=== PATIENT | female | born 1945 | race Caucasian/White ===

== ENCOUNTER 2018-09-10 11:22 | Inpatient (IN) | payer MEDICARE, OTHER ==
[~2018-09-10] VITALS: Ht 157.5 cm; Wt 70.8 kg
[2018-09-10 11:20] VITALS: BP 153/78
--- NOTE | 2018-09-10 11:20 | NUR ---
ELIEZER ZUNIGA admitted to room 222-1, with an admitting diagnosis of AUTONOMIC DYSFUNCTION WITH TYPE 2 DM, on 09/10/18 from HOME via WHEELCHAIR, accompanied by STAFF. IS CURRENTLY A PATIENT IN ROOM 404. ELIEZER ZUNIGA introduced to surroundings, call light, bed controls, phone, TV, temperature control, lights, meal times, smoking policy, visitor policy, side rail policy, bathrooms and showers. Patient Rights given to patient in the handbook.ELIEZER ZUNIGA verbalizes understanding that [facility] is not responsible for the loss or damage to any personal effects or valuables that are kept in the patients posession during their hospitalization. The following Patient Care Plans were discussed with the PT: Discharge Planning AND IMPAIRED MOBILITY. ELIEZER ZUNIGA verbalizes understanding of Interdisciplinary Patient Education. Patient received Patient Rights Booklet, which includes Privacy Act Statement and Data Collection Information Summary. STATES "HER MIND HASN'T WORKED RIGHT SINCE [place] LAST YEAR". PATIENT DENIES PAIN.
--- OUTSIDE RECORDS SUMMARY | 2018-09-10 11:27 | XMS REPORT | CCD ---
Author Author VINH GAINES Organization Unknown Address [address] [place] [address] Care Team Providers Care Training And Development Rep Name Role Phone JULIET PHYS, LUIS ER Attphys JULIET PHYS, LUIS ER Prisurg Allergies Unknown or Not Available. Active Medications Medication Code Dose Units Frequency Route Modification Start Date/Time Advil 200MG Oral Tablet 258639 200 MILLIGRAMS NEEDED EVERY 6 HR ORAL 11/08/2016 10:21 Prescription Detail 200 MILLIGRAMS ORAL NEEDED EVERY 6 HR Aspirin 325MG Oral Tablet 524267 325 MILLIGRAMS DAILY WITH A MEAL ORAL 11/08/2016 10:21 Prescription Detail 325 MILLIGRAMS ORAL DAILY WITH A MEAL Atenolol 25MG Oral Tablet 032202 25 MILLIGRAMS DAILY ORAL 11/08/2016 10:21 Prescription Detail 25 MILLIGRAMS ORAL DAILY Lasix 40MG Oral Tablet 108452 40 MILLIGRAMS DAILY ORAL 11/08/2016 10:21 Prescription Detail 40 MILLIGRAMS ORAL DAILY Leader Cranberry Oral Tablet 9244674 1 EACH DAILY ORAL 11/08/2016 10:21 Prescription Detail 1 EACH ORAL DAILY Levothyroxine Sodium 112MCG Oral Tablet 749185 112 MCG DAILY ORAL 11/08/2016 10:21 Prescription Detail 112 MCG ORAL DAILY NovoLOG 100U/1ML Subcutaneous Solution 610134 5 UNIT BEFORE EACH MEAL SUBCUTANEOUS 11/08/2016 10:21 Prescription Detail 5 UNIT SUBCUTANEOUS BEFORE EACH MEAL oxyCODONE HCl-acetaminophen 10MG-325MG Oral Tablet 3558682 1 EACH NEEDED EVERY 6 HR ORAL 11/08/2016 10:21 Prescription Detail 1 EACH ORAL NEEDED EVERY 6 HR Plavix 75MG Oral Tablet 188597 75 MILLIGRAMS DAILY ORAL 11/08/2016 10:21 Prescription Detail 75 MILLIGRAMS ORAL DAILY Sertraline 50MG Oral Tablet 765948 50 MILLIGRAMS DAILY ORAL 11/08/2016 10:21 Prescription Detail 50 MILLIGRAMS ORAL DAILY Problems Problem Code Start Date Resolved Date Status Sepsis 06720250 11/05/2016 Active Cellulitis 660078232 11/05/2016 Active Procedures Procedure Code Procedure Type Date CX CHEST 1 VIEW 693514800 [facility] 07/15/2016 BEDSIDE GLUCOSE 97522330 [facility] 07/15/2016 UA ROUTINE C&S IF IND [id number] [facility] 07/15/2016 CULTURE BLOOD 27796280 [facility] 07/15/2016 LACTIC ACID 6680474 [facility] 07/15/2016 COMPREHENSIVE METABOLIC PANEL [id number] [facility] 07/15/2016 CBC W/ AUTO DIFF (RFLX MAN DIFF IF IND) [id number] [facility] 07/15/2016 ^UA WITH MICRO [id number] [facility] 07/15/2016 ^CBC W/AUTO DIFF [id number] [facility] 07/15/2016 Results BEDSIDE GLUCOSE - Collect Date/Time: 07/15/2016 15:54 Test Name Code Test Result Test Units Test Ref Range GLUCOSE POCT 208 MG/DL L=70 H=100 COMPREHENSIVE METABOLIC PANEL - Collect Date/Time: 07/15/2016 16:20 Test Name Code Test Result Test Units Test Ref Range GLUCOSE 2345-7 200 MG/DL L=70 H=100 SODIUM 2951-2 139 MEQ/L L=135 H=148 POTASSIUM 2823-3 4.0 MEQ/L L=3.5 H=5.3 CHLORIDE 2075-0 104 MEQ/L L=96 H=110 CO2 2028-9 23 MEQ/L L=22 H=29 BUN 3094-0 39 MG/DL L=8 H=22 CREATININE 2160-0 1.5 MG/DL L=0.6 H=1.6 SGOT/AST 1920-8 19 IU/L L=10 H=40 SGPT/ALT 1742-6 10 IU/L L=8 H=54 ALK PHOS 6768-6 129 IU/L L=35 H=115 TOTAL PROTEIN 2885-2 6.5 G/DL L=5.5 H=8.5 ALBUMIN 1751-7 3.1 G/DL L=3.1 H=5.4 TOTAL BILI 1975-2 0.1 MG/DL L=0.0 H=1.5 CALCIUM 66788-2 9.7 MG/DL L=8.2 H=10.6 AGE 70 yrs GFR NonAA 34 GFR AA 41 eGFR 34 mL/min/1.7 eGFR AA* 41 mL/min/1.7 CBC W/ AUTO DIFF (RFLX MAN DIFF IF IND) - Collect Date/Time: 07/15/2016 15:55 Test Name Code Test Result Test Units Test Ref Range WBC 87362-3 9.6 TH/CMM L=4.5 H=10.8 RBC 789-8 3.72 ML/CMM L=4.20 H=5.40 HGB 718-7 9.2 G/DL L=12.0 H=16.0 HCT 4544-3 31.1 % L=37.0 H=47.0 MCV 84 FL L=81 H=99 MCH 24.7 PG L=27.0 H=33.0 MCHC 29.6 G/DL L=31.0 H=36.0 RDW SD 45 FL L=36 H=50 RDW CV 14.8 % L=0.0 H=14.8 MPV 10.4 FL L=9.3 H=12.5 PLT 777-3 384 TH/CMM L=130 H=440 NRBC# 0.00 TH/CMM L=0.00 H=0.00 NRBC% 0.0 /100WBC L=0.0 H=2.0 %NEUT 61.4 % %LYMP 28.0 % %MONO 7.8 % %EOS 2.0 % %BASO 0.4 % #NEUT 5.86 TH/CMM L=2.10 H=8.20 #LYMP 2.68 TH/CMM L=0.90 H=5.20 #MONO 0.75 TH/CMM L=0.16 H=1.00 #EOS 0.19 TH/CMM L=0.00 H=0.80 #BASO 0.04 TH/CMM L=0.00 H=0.20 MANUAL DIFF NOT IND N/A UA ROUTINE C&S IF IND - Collect Date/Time: 07/15/2016 18:30 Test Name Code Test Result Test Units Test Ref Range COLOR YELLOW N/A NL: YELLOW APPEARANCE HAZY N/A NL: CLEAR SPEC GRAV 1.020 N/A NL: 1.002 - 1.022 pH 5.5 N/A NL: 5 - 9 PROTEIN NEGATIVE N/A NL: NEGATIVE mg/dl GLUCOSE NEGATIVE N/A NL: NEGATIVE mg/dl KETONE NEGATIVE N/A NL: NEGATIVE mg/dl BILIRUBIN NEGATIVE N/A NL: NEGATIVE BLOOD NEGATIVE N/A NL: NEGATIVE NITRITE NEGATIVE N/A NL: NEGATIVE LEUK SCREEN TRACE N/A NL: NEGATIVE MICRO INDICATED? SEE BELOW N/A WBC/HPF RARE N/A NL: NEGATIVE RBC/HPF NEGATIVE N/A NL: NEGATIVE CASTS/LPF FEW HYALINE N/A NL: NEGATIVE CRYSTALS NEGATIVE N/A NL: NEGATIVE MUCOUS THRDS FEW N/A NL: NEGATIVE BACTERIA NEGATIVE N/A NL: NEGATIVE EPITH CELLS FEW RENAL N/A NL: NEGATIVE TRICHOMONAS NEGATIVE N/A NL: NEGATIVE YEAST NEGATIVE N/A NL: NEGATIVE CULT SET UP? NO N/A LACTIC ACID - Collect Date/Time: 07/15/2016 16:20 Test Name Code Test Result Test Units Test Ref Range LACTIC ACID 2524-7 2.1 mmol/L L=0.5 H=1.6 Function Status Unknown or Not Available. History of Immunizations Immunization Code Date influenza, split (incl. purified surface antigen) 15 02/10/2001 influenza, split (incl. purified surface antigen) 15 02/02/2003 influenza, split (incl. purified surface antigen) 15 02/03/2005 influenza, split (incl. purified surface antigen) 15 02/13/2006 influenza, split (incl. purified surface antigen) 15 12/28/2006 influenza, split (incl. purified surface antigen) 15 01/05/2008 Influenza, high dose seasonal 135 01/01/2016 Influenza, high dose seasonal 135 01/20/2017 Plan of Treatment Unknown or Not Available. Social History Smoking Status Code Start Date End Date Never smoker [id number] Vital Signs Unknown or Not Available. Function Status Unknown or Not Available. Goals Unknown or Not Available. ASSESSMENTS Unknown or Not Available. Health Concerns Section Unknown or Not Available.
--- OUTSIDE RECORDS SUMMARY | 2018-09-10 11:27 | XMS REPORT | CCD ---
Author DANIEL Crane Unknown Address [address] [facility] [place] [address] Care Team Providers Care Shopping Inspector Name Role Phone LUIS SUE DO Attphys Allergies Allergy Code Allergy Type Reaction Status SULFA (sulfonamide) 0 Drug allergy Active MORPHINE 7052 Drug allergy Active DILAUDID 021798 Drug allergy Active AMOXICILLIN 723 Drug allergy Active Active Medications Medication Code Dose Units Frequency Route Modification Start Date/Time Advil 200MG Oral Tablet 777343 200 MILLIGRAMS NEEDED EVERY 6 HR ORAL 11/08/2016 10:21 Prescription Detail 200 MILLIGRAMS ORAL NEEDED EVERY 6 HR Aspirin 325MG Oral Tablet 705766 325 MILLIGRAMS DAILY WITH A MEAL ORAL 11/08/2016 10:21 Prescription Detail 325 MILLIGRAMS ORAL DAILY WITH A MEAL Atenolol 25MG Oral Tablet 376054 25 MILLIGRAMS DAILY ORAL 11/08/2016 10:21 Prescription Detail 25 MILLIGRAMS ORAL DAILY Lasix 40MG Oral Tablet 462376 40 MILLIGRAMS DAILY ORAL 11/08/2016 10:21 Prescription Detail 40 MILLIGRAMS ORAL DAILY Leader Cranberry Oral Tablet 7862379 1 EACH DAILY ORAL 11/08/2016 10:21 Prescription Detail 1 EACH ORAL DAILY Levothyroxine Sodium 112MCG Oral Tablet 328538 112 MCG DAILY ORAL 11/08/2016 10:21 Prescription Detail 112 MCG ORAL DAILY NovoLOG 100U/1ML Subcutaneous Solution 872217 5 UNIT BEFORE EACH MEAL SUBCUTANEOUS 11/08/2016 10:21 Prescription Detail 5 UNIT SUBCUTANEOUS BEFORE EACH MEAL oxyCODONE HCl-acetaminophen 10MG-325MG Oral Tablet 4147500 1 EACH NEEDED EVERY 6 HR ORAL 11/08/2016 10:21 Prescription Detail 1 EACH ORAL NEEDED EVERY 6 HR Plavix 75MG Oral Tablet 576101 75 MILLIGRAMS DAILY ORAL 11/08/2016 10:21 Prescription Detail 75 MILLIGRAMS ORAL DAILY Sertraline 50MG Oral Tablet 847083 50 MILLIGRAMS DAILY ORAL 11/08/2016 10:21 Prescription Detail 50 MILLIGRAMS ORAL DAILY Problems Problem Code Start Date Resolved Date Status Sepsis 14811788 11/05/2016 Active Cellulitis 646902176 11/05/2016 Active Procedures Unknown or Not Available. Results Unknown or Not Available. Function Status Unknown or Not Available. History [...] Code Start Date End Date Never smoker [id number] Vital Signs Unknown or Not Available. Function Status Unknown or Not Available. Goals Unknown or Not Available. ASSESSMENTS Unknown or Not Available. Health Concerns Section Unknown or Not Available.
--- OUTSIDE RECORDS SUMMARY | 2018-09-10 11:27 | XMS REPORT | CCD ---
Author Author VINH GAINES Unknown Address [address] [place] [address] Care Team Providers Care Food Assembler Kitchen Name Role Phone ARSENIO McelroyJAISON Attphys A., DONOVAN Jc NASST G., SUNPIPPA NASST R., MILAGRO Jc NASST W., NOEMY NASST P., YUMIKO NASST H., EZIO NASST M., ERAN NASST D., NICOLASAA NASST H., DANIELLE NASST U., FREDY NASST K., JERRI NASST S., JUNG Hathaway NASST W., DIANNE Luz NASST D., KENNEDY Mcelroy NASST S., ALYCIA NASST K., DEWEY NASST S., TYREE Renae NASST C., YUVAL NASST Allergies Allergy Code Allergy Type Reaction Status SULFA (sulfonamide) 0 Drug allergy Active MORPHINE 7052 Drug allergy Active DILAUDID 843214 Drug allergy Active AMOXICILLIN 723 Drug allergy Active Active Medications Medication Code Dose Units Frequency Route Modification Start Date/Time Advil 200MG Oral Tablet 811605 200 MILLIGRAMS NEEDED EVERY 6 HR ORAL 11/08/2016 10:21 Prescription Detail 200 MILLIGRAMS ORAL NEEDED EVERY 6 HR Aspirin 325MG Oral Tablet 597027 325 MILLIGRAMS DAILY WITH A MEAL ORAL 11/08/2016 10:21 Prescription Detail 325 MILLIGRAMS ORAL DAILY WITH A MEAL Atenolol 25MG Oral Tablet 531827 25 MILLIGRAMS DAILY ORAL 11/08/2016 10:21 Prescription Detail 25 MILLIGRAMS ORAL DAILY Lasix 40MG Oral Tablet 008092 40 MILLIGRAMS DAILY ORAL 11/08/2016 10:21 Prescription Detail 40 MILLIGRAMS ORAL DAILY Leader Cranberry Oral Tablet 9294334 1 EACH DAILY ORAL 11/08/2016 10:21 Prescription Detail 1 EACH ORAL DAILY Levothyroxine Sodium 112MCG Oral Tablet 138317 112 MCG DAILY ORAL 11/08/2016 10:21 Prescription Detail 112 MCG ORAL DAILY NovoLOG 100U/1ML Subcutaneous Solution 380576 5 UNIT BEFORE EACH MEAL SUBCUTANEOUS 11/08/2016 10:21 Prescription Detail 5 UNIT SUBCUTANEOUS BEFORE EACH MEAL oxyCODONE HCl-acetaminophen 10MG-325MG Oral Tablet 9916288 1 EACH NEEDED EVERY 6 HR ORAL 11/08/2016 10:21 Prescription Detail 1 EACH ORAL NEEDED EVERY 6 HR Plavix 75MG Oral Tablet 436701 75 MILLIGRAMS DAILY ORAL 11/08/2016 10:21 Prescription Detail 75 MILLIGRAMS ORAL DAILY Sertraline 50MG Oral Tablet 573146 50 MILLIGRAMS DAILY ORAL 11/08/2016 10:21 Prescription Detail 50 MILLIGRAMS ORAL DAILY Problems Problem Code Start Date Resolved Date Status Sepsis 89189608 11/05/2016 Active Cellulitis 133402394 11/05/2016 Active Procedures Procedure Code Procedure Type Date CX CHEST [address] 11/07/2016 CX CHEST [address] 11/07/2016 CX CHEST [address] 11/05/2016 BEDSIDE GLUCOSE 07497064 SNOMED CT 11/08/2016 BEDSIDE GLUCOSE 09418645 SNOMED CT 11/08/2016 BEDSIDE GLUCOSE 23386287 SNOMED CT 11/08/2016 BEDSIDE GLUCOSE 22419847 SNOMED CT 11/08/[address] 11/08/2016 BEDSIDE GLUCOSE 92431067 SNOMED CT 11/08/2016 BEDSIDE GLUCOSE 91320984 SNOMED CT 11/08/2016 BEDSIDE GLUCOSE 31854466 SNOMED CT 11/08/2016 BEDSIDE GLUCOSE 31412302 SNOMED CT 11/07/2016 BEDSIDE GLUCOSE 53461181 SNOMED CT 11/07/2016 BEDSIDE GLUCOSE 46311512 SNOMED CT 11/07/2016 BEDSIDE GLUCOSE 40773675 SNOMED CT 11/07/2016 BASIC METABOLIC PANEL 209959927 SNOMED CT 11/08/2016 CBC W/ AUTO DIFF (RFLX MAN DIFF IF IND) 1019777 SNOMED CT 11/08/2016 BEDSIDE GLUCOSE 19594079 SNOMED CT 11/07/2016 BEDSIDE GLUCOSE 25690059 SNOMED CT 11/07/2016 BEDSIDE GLUCOSE 48314645 SNOMED CT 11/07/2016 BEDSIDE GLUCOSE 85846248 SNOMED CT 11/07/2016 BEDSIDE GLUCOSE 52797310 SNOMED CT 11/07/2016 BEDSIDE GLUCOSE 74919936 SNOMED CT 11/07/2016 BEDSIDE GLUCOSE 00311766 SNOMED CT 11/07/2016 BEDSIDE GLUCOSE 60295996 SNOMED CT 11/06/2016 BEDSIDE GLUCOSE 11823168 SNOMED CT 11/06/2016 BEDSIDE GLUCOSE 63057853 SNOMED CT 11/06/2016 BEDSIDE GLUCOSE 15464390 SNOMED CT 11/06/2016 BEDSIDE GLUCOSE 77072765 SNOMED CT 11/06/2016 BEDSIDE GLUCOSE 88877879 SNOMED CT 11/05/2016 BEDSIDE GLUCOSE 77368585 SNOMED CT 11/06/2016 BEDSIDE GLUCOSE 57780605 SNOMED CT 11/06/2016 BEDSIDE GLUCOSE 26658526 SNOMED CT 11/05/2016 BEDSIDE GLUCOSE 76316765 SNOMED CT 11/05/2016 VANCOMYCIN TROUGH 456205248 SNOMED CT 11/07/2016 CULTURE WOUND 217349445 SNOMED CT 11/05/2016 OCCULT BLOOD iFOBT 870259971 SNOMED CT 11/05/2016 IRON [address]30[address] 11/05/2016 C REACTIVE PROTEIN 70122067 SNOMED CT 11/06/[address]OGLOBIN A1C 56[address]252 SNOM[address] 11/06/[address] 11/06/[address] 11/06/2016 COMPREHENSIVE METABOLIC PANEL 318809915 SNOMED CT 11/06/2016 CBC W/ AUTO DIFF (RFLX MAN DIFF IF IND) 6889525 SNOMED CT 11/06/2016 [address] 067[address] 11/05/2016 LACTIC ACID 8866219 [address] 11/05/2016 CULTURE BLOOD 64928082 SNOMED CT 11/05/2016 CULTURE BLOOD 99029547 SNOMED CT 11/05/2016 C REACTIVE PROTEIN 24822727 SNOMED CT 11/05/2016 COMPREHENSIVE METABOLIC PANEL 761722412 SNOMED CT 11/05/2016 CBC W/ AUTO DIFF (RFLX MAN DIFF IF IND) 1418633 SNOMED CT 11/05/2016 ^CULTURE AEROBIC ID 406600563 SNOMED CT 11/05/2016 ^SENSITIVITY 162610969 SNOMED CT 11/05/2016 ^CBC W/AUTO DIFF 6558344 SNOMED CT 11/08/2016 ^CBC W/AUTO DIFF 7185696 SNOMED CT 11/06/2016 ^CBC W/AUTO DIFF 0600287 SNOMED CT 11/05/2016 BAN AERO ECLIPSE TREATMENT 70737043 SNOMED CT 11/06/2016 BAN AERO ECLIPSE TREATMENT 65279071 SNOMED CT 11/05/2016 BAN AERO ECLIPSE TREATMENT 70597376 SNOMED CT 11/05/2016 Results BASIC METABOLIC PANEL - Collect Date/Time: 11/08/2016 06:30 Test Name Code Test Result Test Units Test Ref Range GLUCOSE 2345-7 639 MG/DL L=70 H=100 SODIUM 2951-2 134 MEQ/L L=135 H=148 POTASSIUM 2823-3 4.4 MEQ/L L=3.5 H=5.3 CHLORIDE 2075-0 98 MEQ/L L=96 H=110 CO2 2028-9 25 MEQ/L L=22 H=29 BUN 3094-0 22 MG/DL L=8 H=22 CREATININE 2160-0 0.9 MG/DL L=0.6 H=1.6 CALCIUM 95801-9 8.7 MG/DL L=8.2 H=10.6 AGE [address]25-6 71 yrs GFR NonAA 77201-8 62 [place]FR [place] 48044-6 75 eGFR 30664-7 >60 N/A eGFR AA* 54959-8 >60 N/A BEDSIDE GLUCOSE - Collect Date/Time: 11/08/2016 14:50 Test Name Code Test Result Test Units Test Ref Range GLUCOSE POCT 114 MG/DL L=70 H=100 BEDSIDE GLUCOSE - Collect Date/Time: 11/08/2016 13:14 Test Name Code Test Result Test Units Test Ref Range GLUCOSE POCT 121 MG/DL L=70 H=100 BEDSIDE GLUCOSE - Collect Date/Time: 11/08/2016 11:29 Test Name Code Test Result Test Units Test Ref Range GLUCOSE POCT 204 MG/DL L=70 H=100 BEDSIDE GLUCOSE - Collect Date/Time: 11/08/2016 08:27 Test Name Code Test Result Test Units Test Ref Range GLUCOSE POCT 478 MG/DL L=70 H=100 BEDSIDE GLUCOSE - Collect Date/Time: 11/08/2016 06:46 Test Name Code Test Result Test Units Test Ref Range GLUCOSE POCT 489 MG/DL L=70 H=100 BEDSIDE GLUCOSE - Collect Date/Time: 11/08/2016 05:13 Test Name Code Test Result Test Units Test Ref Range GLUCOSE POCT 456 MG/DL L=70 H=100 BEDSIDE GLUCOSE - Collect Date/Time: 11/08/2016 00:58 Test Name Code Test Result Test Units Test Ref Range GLUCOSE POCT 402 MG/DL L=70 H=100 BEDSIDE GLUCOSE - Collect Date/Time: 11/07/2016 21:02 Test Name Code Test Result Test Units Test Ref Range GLUCOSE POCT 90 MG/DL L=70 H=100 BEDSIDE GLUCOSE - Collect Date/Time: 11/07/2016 20:41 Test Name Code Test Result Test Units Test Ref Range GLUCOSE POCT 55 MG/DL L=70 H=100 BEDSIDE GLUCOSE - Collect Date/Time: 11/07/2016 20:19 Test Name Code Test Result Test Units Test Ref Range GLUCOSE POCT 62 MG/DL L=70 H=100 BEDSIDE GLUCOSE - Collect Date/Time: 11/07/2016 16:51 Test Name Code Test Result Test Units Test Ref Range GLUCOSE POCT 126 MG/DL L=70 H=100 BEDSIDE GLUCOSE - Collect Date/Time: 11/07/2016 14:28 Test Name Code Test Result Test Units Test Ref Range GLUCOSE POCT 453 MG/DL L=70 H=100 BEDSIDE GLUCOSE - Collect Date/Time: 11/07/2016 11:37 Test Name Code Test Result Test Units Test Ref Range GLUCOSE POCT 482 MG/DL L=70 H=100 BEDSIDE GLUCOSE - Collect Date/Time: 11/07/2016 05:41 Test Name Code Test Result Test Units Test Ref Range GLUCOSE POCT 270 MG/DL L=70 H=100 BEDSIDE GLUCOSE - Collect Date/Time: 11/07/2016 03:24 Test Name Code Test Result Test Units Test Ref Range GLUCOSE POCT 94 MG/DL L=70 H=100 BEDSIDE GLUCOSE - Collect Date/Time: 11/07/2016 03:00 Test Name Code Test Result Test Units Test Ref Range GLUCOSE POCT 60 MG/DL L=70 H=100 BEDSIDE GLUCOSE - Collect Date/Time: 11/07/2016 02:30 Test Name Code Test Result Test Units Test Ref Range GLUCOSE POCT 28 MG/DL L=70 H=100 BEDSIDE GLUCOSE - Collect Date/Time: 11/07/2016 02:07 Test Name Code Test Result Test Units Test Ref Range GLUCOSE POCT 20 MG/DL L=70 H=100 BEDSIDE GLUCOSE - Collect Date/Time: 11/06/2016 20:25 Test Name Code Test Result Test Units Test Ref Range GLUCOSE POCT 202 MG/DL L=70 H=100 BEDSIDE GLUCOSE - Collect Date/Time: 11/06/2016 17:14 Test Name Code Test Result Test Units Test Ref Range GLUCOSE POCT 111 MG/DL L=70 H=100 BEDSIDE GLUCOSE - Collect Date/Time: 11/06/2016 16:20 Test Name Code Test Result Test Units Test Ref Range GLUCOSE POCT 75 MG/DL L=70 H=100 BEDSIDE GLUCOSE - Collect Date/Time: 11/06/2016 12:03 Test Name Code Test Result Test Units Test Ref Range GLUCOSE POCT 210 MG/DL L=70 H=100 BEDSIDE GLUCOSE - Collect Date/Time: 11/06/2016 08:16 Test Name Code Test Result Test Units Test Ref Range GLUCOSE POCT 322 MG/DL L=70 H=100 BEDSIDE GLUCOSE - Collect Date/Time: 11/06/2016 05:54 Test Name Code Test Result Test Units Test Ref Range GLUCOSE POCT 269 MG/DL L=70 H=100 BEDSIDE GLUCOSE - Collect Date/Time: 11/06/2016 02:07 Test Name Code Test Result Test Units Test Ref Range GLUCOSE POCT 243 MG/DL L=70 H=100 BEDSIDE GLUCOSE - Collect Date/Time: 11/05/2016 20:40 Test Name Code Test Result Test Units Test Ref Range GLUCOSE POCT 292 MG/DL L=70 H=100 BEDSIDE GLUCOSE - Collect Date/Time: 11/05/2016 16:43 Test Name Code Test Result Test Units Test Ref Range GLUCOSE POCT 169 MG/DL L=70 H=100 BEDSIDE GLUCOSE - Collect Date/Time: 11/05/2016 11:58 Test Name Code Test Result Test Units Test Ref Range GLUCOSE POCT 105 MG/DL L=70 H=100 COMPREHENSIVE METABOLIC PANEL - Collect Date/Time: 11/06/2016 06:35 Test Name Code Test Result Test Units Test Ref Range GLUCOSE 2345-7 318 MG/DL L=70 H=100 SODIUM 2951-2 136 MEQ/L L=135 H=148 POTASSIUM 2823-3 4.1 MEQ/L L=3.5 H=5.3 CHLORIDE 2075-0 108 MEQ/L L=96 H=110 CO2 2028-9 23 MEQ/L L=22 H=29 BUN 3094-0 21 MG/DL L=8 H=22 CREATININE 2160-0 0.7 MG/DL L=0.6 H=1.6 SGOT/AST 1920-8 13 IU/L L=10 H=40 SGPT/ALT 1742-6 9 IU/L L=8 H=54 ALK PHOS 6768-6 147 IU/L L=35 H=115 TOTAL PROTEIN 2885-2 5.7 G/DL L=5.5 H=8.5 ALBUMIN 1751-7 2.7 G/DL L=3.1 H=5.4 TOTAL BILI 1975-2 0.3 MG/DL L=0.0 H=1.5 CALCIUM 16140-9 8.3 MG/DL L=8.2 H=10.6 AGE 158[address]-8 71 yrs GFR NonAA 72595-8 82 GFR AA 87789-5 99 eGFR 40838-4 >60 N/A eGFR AA* 65816-3 >60 N/A COMPREHENSIVE METABOLIC PANEL - Collect Date/Time: 11/05/2016 12:05 Test Name Code Test Result Test Units Test Ref Range GLUCOSE 2345-7 90 MG/DL L=70 H=100 SODIUM 2951-2 140 MEQ/L L=135 H=148 POTASSIUM 2823-3 4.3 MEQ/L L=3.5 H=5.3 CHLORIDE 2075-0 105 MEQ/L L=96 H=110 CO2 2028-9 24 MEQ/L L=22 H=29 BUN 3094-0 33 MG/DL L=8 H=22 CREATININE 2160-0 0.8 MG/DL L=0.6 H=1.6 SGOT/AST 1920-8 24 IU/L L=10 H=40 SGPT/ALT 1742-6 15 IU/L L=8 H=54 ALK PHOS 6768-6 166 IU/L L=35 H=115 TOTAL PROTEIN 2885-2 7.7 G/DL L=5.5 H=8.5 ALBUMIN 1751-7 3.3 G/DL L=3.1 H=5.4 TOTAL BILI 1975-2 0.3 MG/DL L=0.0 H=1.5 CALCIUM 11212-6 9.8 MG/DL L=8.2 H=10.6 AGE 71 yrs GFR NonAA 71 GFR AA 86 eGFR >60 N/A eGFR AA* >60 N/A GLUCOSE - Collect Date/Time: 11/08/2016 08:30 Test Name Code Test Result Test Units Test Ref Range GLUCOSE 2345-7 519 MG/DL L=70 H=100 PHOSPHORUS - Collect Date/Time: 11/06/2016 06:35 Test Name Code Test Result Test Units Test Ref Range PHOSPHORUS 2777-1 3.0 MG/DL L=2.5 H=4.5 VANCOMYCIN TROUGH - Collect Date/Time: 11/07/2016 00:40 Test Name Code Test Result Test Units Test Ref Range VANC TROUGH 4092-3 16.0 UG/ML L=10.0 H=20.0 CBC W/ AUTO DIFF (RFLX MAN DIFF IF IND) - Collect Date/Time: 11/08/2016 06:30 Test Name Code Test Result Test Units Test Ref Range WBC 02526-0 8.0 TH/CMM L=4.5 H=10.8 RBC 789-8 4.00 ML/CMM L=4.20 H=5.40 HGB 718-7 9.4 G/DL L=12.0 H=16.0 HCT 4544-3 31.5 % L=37.0 H=47.0 MCV 89971-4 79 FL L=81 H=99 MCH 47649-7 23.5 PG L=27.0 H=33.0 MCHC 02126-9 29.8 G/DL L=31.0 H=36[place]0 [place] [address]-4 51 FL L=36 H=50 [place] [address]-6 17.9 % L=0.0 H=14.8 MPV 46785-5 10.7 FL L=9.3 H=12.5 PLT 777-3 301 TH/CMM L=130 H=440 NRBC# 91081-9 0.00 TH/CMM L=0.00 H=0.00 NRBC% 65122-8 0.0 /100WBC L=0.0 H=2.0 %NEUT 39477-8 65.7 % %LYMP 77678-6 22.0 % %MONO 69459-1 7.3 % %EOS 44146-5 4.0 % %BASO 39052-9 0.6 % #NEUT 39257-6 5.27 TH/CMM L=2.10 H=8.20 #LYMP 38613-4 1.77 TH/CMM L=0.90 H=5.20 #MONO 48162-8 0.59 TH/CMM L=0.16 H=1.00 #EOS 00373-2 0.32 TH/CMM L=0.00 H=0.80 #BASO 39036-2 0.05 TH/CMM L=0.00 H=0.20 MANUAL DIFF 59084-7 NOT IND N/A CBC W/ AUTO DIFF (RFLX MAN DIFF IF IND) - Collect Date/Time: 11/06/2016 06:35 Test Name Code Test Result Test Units Test Ref Range WBC 70020-1 8.0 TH/CMM L=4.5 H=10.8 RBC 789-8 3.79 ML/CMM L=4.20 H=5.40 HGB 718-7 9.0 G/DL L=12.0 H=16.0 HCT 4544-3 29.7 % L=37.0 H=47.0 MCV 92368-7 78 FL L=81 H=99 MCH 69328-0 23.7 PG L=27.0 H=33.0 MCHC 12702-4 30.3 G/DL L=31.0 H=36[place]0 [place] [address]-2 51 FL L=36 H=50 [place] [address]-7 18.1 % L=0.0 H=14.8 MPV 07293-6 10.9 FL L=9.3 H=12.5 PLT 777-3 351 TH/CMM L=130 H=440 NRBC# 37613-9 0.00 TH/CMM L=0.00 H=0.00 NRBC% 45237-5 0.0 /100WBC L=0.0 H=2.0 %NEUT 80258-3 53.4 % %LYMP 51282-5 35.0 % %MONO 10661-7 7.1 % %EOS 20394-7 3.3 % %BASO 33683-8 0.9 % #NEUT 60736-2 4.27 TH/CMM L=2.10 H=8.20 #LYMP 08843-6 2.80 TH/CMM L=0.90 H=5.20 #MONO 12479-4 0.57 TH/CMM L=0.16 H=1.00 #EOS 84861-4 0.26 TH/CMM L=0.00 H=0.80 #BASO 76678-1 0.07 TH/CMM L=0.00 H=0.20 MANUAL DIFF 89773-0 NOT IND N/A CBC W/ AUTO DIFF (RFLX MAN DIFF IF IND) - Collect Date/Time: 11/05/2016 12:05 Test Name Code Test Result Test Units Test Ref Range WBC 57038-6 8.3 TH/CMM L=4.5 H=10.8 RBC 789-8 4.64 ML/CMM L=4.20 H=5.40 HGB 718-7 10.8 G/DL L=12.0 H=16.0 HCT 4544-3 35.7 % L=37.0 H=47.0 MCV 77 FL L=81 H=99 MCH 23.3 PG L=27.0 H=33.0 MCHC 30.3 G/DL L=31.0 H=36.0 RDW SD 50 FL L=36 H=50 RDW CV 18.1 % L=0.0 H=14.8 MPV 10.6 FL L=9.3 H=12.5 PLT 777-3 460 TH/CMM L=130 H=440 NRBC# 0.00 TH/CMM L=0.00 H=0.00 NRBC% 0.0 /100WBC L=0.0 H=2.0 %NEUT 59.8 % %LYMP 28.7 % %MONO 8.7 % %EOS 1.6 % %BASO 0.8 % #NEUT 4.96 TH/CMM L=2.10 H=8.20 #LYMP 2.38 TH/CMM L=0.90 H=5.20 #MONO 0.72 TH/CMM L=0.16 H=1.00 #EOS 0.13 TH/CMM L=0.00 H=0.80 #BASO 0.07 TH/CMM L=0.00 H=0.20 MANUAL DIFF NOT IND N/A OCCULT BLOOD iFOBT - Collect Date/Time: 11/06/2016 10:55 Test Name Code Test Result Test Units Test Ref Range OCC BLD STOOL 2335-8 NEGATIVE N/A NORMAL: NEGATIVE C REACTIVE PROTEIN - Collect Date/Time: 11/06/2016 06:35 Test Name Code Test Result Test Units Test Ref Range C REACTIVE PROTEIN 1987- 1.3 MG/DL L=0.0 H=1.0 C REACTIVE PROTEIN - Collect Date/Time: 11/05/2016 12:05 Test Name Code Test Result Test Units Test Ref Range C REACTIVE PROTEIN 1987- 2.0 MG/DL L=0.0 H=1.0 HEMOGLOBIN A1C - Collect Date/Time: 11/06/2016 06:35 Test Name Code Test Result Test Units Test Ref Range HGB A1C 54038-9 7.7 % L=4.0 H=6.4 Est Avg Glucose 59507-1 174.3 mg/dL IRON PANEL - Collect Date/Time: 11/05/2016 12:05 Test Name Code Test Result Test Units Test Ref Range IRON TOTAL 2498-4 42 MCG/DL L=50 H=212 Transferrin 3034-6 278 MG/DL L=175 H=375 TIBC Calculation 2500-7 348 MG/DL L=250 H=450 %Saturation Calc 2500-7 12 % L=15 H=55 VITAMIN B12 & FOLATE - Collect Date/Time: 11/05/2016 12:05 Test Name Code Test Result Test Units Test Ref Range VITAMIN B12 2132-9 534 PG/ML L=213 H=816 FOLATE 2284-8 18.40 ng/mL LACTIC ACID - Collect Date/Time: 11/05/2016 18:00 Test Name Code Test Result Test Units Test Ref Range LACTIC ACID 2524-7 1.9 mmol/L L=0.5 H=1.6 LACTIC ACID - Collect Date/Time: 11/05/2016 12:05 Test Name Code Test Result Test Units Test Ref Range LACTIC ACID 2524-7 2.4 mmol/L L=0.5 H=1.6 MAGNESIUM - Collect Date/Time: 11/06/2016 06:35 Test Name Code Test Result Test Units Test Ref Range MAGNESIUM 16505-2 1.7 MG/DL L=1.7 H=2.8 Function Status Unknown or Not Available. History [...] Code Start Date End Date Never smoker [id number] Vital Signs Vital Sign Value Unit Date/Time Recent/Initial? BMI (Body Mass Index) 24.98 kg/m2 11/05/2016 14:50 Initial VS Weight Measured 136.6 [lb_av] 11/05/2016 14:50 Initial VS Height 62 [in_i] 11/05/2016 14:50 Initial VS BSA (Body Surface Area) 1.65 m2 11/05/2016 14:50 Initial VS BP Systolic 168 mm[Hg] 11/05/2016 14:50 Initial VS BP Diastolic 79 mm[Hg] 11/05/2016 14:50 Initial VS Respiratory Rate 16 /min 11/05/2016 14:50 Initial VS Heart Rate 95 /min 11/05/2016 14:50 Initial VS O2 % BldC Oximetry 98 % 11/05/2016 14:50 Initial VS Body Temperature 97 [degF] 11/05/2016 14:50 Initial VS BP Systolic 107 mm[Hg] 11/08/2016 11:48 Most Recent VS BP Diastolic 68 mm[Hg] 11/08/2016 11:48 Most Recent VS Respiratory Rate 20 /min 11/08/2016 11:48 Most Recent VS Heart Rate 75 /min 11/08/2016 11:48 Most Recent VS O2 % BldC Oximetry 99 % 11/08/2016 11:48 Most Recent VS Body Temperature 96.3 [degF] 11/08/2016 11:48 Most Recent VS Function Status Unknown or Not Available. Goals Unknown or Not Available. ASSESSMENTS Unknown or Not Available. Health Concerns Section Unknown or Not Available.
--- OUTSIDE RECORDS SUMMARY | 2018-09-10 11:28 | XMS REPORT | CCD ---
Author Author DANIEL CEBALLOS Unknown Address [address] [facility] [address] [place] [address] Care Team Providers Care Press Feeder Broomcorn Name Role Phone BENJAMÍN FLOWERS, BHAVNA Hudson Attsuzannas Allergies Allergy Code Allergy Type Reaction Status SULFA (sulfonamide) 0 Drug allergy Active MORPHINE 7052 Drug allergy Active DILAUDID 369926 Drug allergy Active AMOXICILLIN 723 Drug allergy Active Active Medications Unknown or Not Available. Problems Problem Code Start Date Resolved Date Status Sepsis 18999280 11/05/2016 Active Cellulitis 941214579 11/05/2016 Active Procedures Procedure Code Procedure Type Date Debridement, subcutaneous tissue; first 20 sq cm or less 23242 CPT 11/21/2016 BEDSIDE GLUCOSE 32958930 SNOMED CT 11/21/2016 BEDSIDE GLUCOSE 70353652 SNOMED CT 11/21/2016 CULTURE MISC 217585239 SNOMED CT 11/21/2016 ^SENSITIVITY 477963457 SNOMED CT 11/21/2016 ^CULTURE AEROBIC ID [id number] SNOMED CT 11/21/2016 Results BEDSIDE GLUCOSE - Collect Date/Time: 11/21/2016 13:09 Test Name Code Test Result Test Units Test Ref Range GLUCOSE POCT 359 MG/DL L=70 H=100 BEDSIDE GLUCOSE - Collect Date/Time: 11/21/2016 11:51 Test Name Code Test Result Test Units Test Ref Range GLUCOSE POCT 308 MG/DL L=70 H=100 Function Status Unknown or Not Available. History [...] Code Start Date End Date Never smoker [id number] Vital Signs Vital Sign Value Unit Date/Time Recent/Initial? BMI (Body Mass Index) 24.87 kg/m2 11/20/2016 14:43 Initial VS Weight Measured 136 [lb_av] 11/20/2016 14:43 Initial VS Height 62 [in_i] 11/20/2016 14:43 Initial VS BSA (Body Surface Area) 1.64 m2 11/20/2016 14:43 Initial VS Heart Rate 70 /min 11/21/2016 12:59 Initial VS O2 % BldC Oximetry 99 % 11/21/2016 12:59 Initial VS BP Systolic 118 mm[Hg] 11/21/2016 13:00 Initial VS BP Diastolic 36 mm[Hg] 11/21/2016 13:00 Initial VS Respiratory Rate 17 /min 11/21/2016 13:00 Initial VS BP Systolic 132 mm[Hg] 11/21/2016 13:43 Most Recent VS BP Diastolic 50 mm[Hg] 11/21/2016 13:43 Most Recent VS Respiratory Rate 13 /min 11/21/2016 13:43 Most Recent VS Heart Rate 64 /min 11/21/2016 13:43 Most Recent VS O2 % BldC Oximetry 99 % 11/21/2016 13:43 Most Recent VS Function Status Unknown or Not Available. Goals Unknown or Not Available. ASSESSMENTS Unknown or Not Available. Health Concerns Section Unknown or Not Available.
--- OUTSIDE RECORDS SUMMARY | 2018-09-10 11:28 | XMS REPORT | CCD ---
Author Author DANIEL CEBALLOS Unknown Address [address] [facility] [place] [address] Care Team Providers Care Oyster Planter Name Role Phone BENJAMÍN FLOWERS, BHAVNA Hudson Attphys Allergies Allergy Code Allergy Type Reaction Status SULFA (sulfonamide) 0 Drug allergy Active MORPHINE 7052 Drug allergy Active DILAUDID 679683 Drug allergy Active AMOXICILLIN 723 Drug allergy Active Active Medications Medication Code Dose Units Frequency Route Modification Start Date/Time Advil 200MG Oral Tablet 538619 200 MILLIGRAMS NEEDED EVERY 6 HR ORAL 11/08/2016 10:21 Prescription Detail 200 MILLIGRAMS ORAL NEEDED EVERY 6 HR Aspirin 325MG Oral Tablet 995979 325 MILLIGRAMS DAILY WITH A MEAL ORAL 11/08/2016 10:21 Prescription Detail 325 MILLIGRAMS ORAL DAILY WITH A MEAL Atenolol 25MG Oral Tablet 756032 25 MILLIGRAMS DAILY ORAL 11/08/2016 10:21 Prescription Detail 25 MILLIGRAMS ORAL DAILY Lasix 40MG Oral Tablet 412097 40 MILLIGRAMS DAILY ORAL 11/08/2016 10:21 Prescription Detail 40 MILLIGRAMS ORAL DAILY Leader Cranberry Oral Tablet 1034200 1 EACH DAILY ORAL 11/08/2016 10:21 Prescription Detail 1 EACH ORAL DAILY Levothyroxine Sodium 112MCG Oral Tablet 784313 112 MCG DAILY ORAL 11/08/2016 10:21 Prescription Detail 112 MCG ORAL DAILY NovoLOG 100U/1ML Subcutaneous Solution 235712 5 UNIT BEFORE EACH MEAL SUBCUTANEOUS 11/08/2016 10:21 Prescription Detail 5 UNIT SUBCUTANEOUS BEFORE EACH MEAL oxyCODONE HCl-acetaminophen 10MG-325MG Oral Tablet [id number] 1 EACH NEEDED EVERY 6 HR ORAL 11/08/2016 10:21 Prescription Detail 1 EACH ORAL NEEDED EVERY 6 HR Plavix 75MG Oral Tablet [id number] 75 MILLIGRAMS DAILY ORAL 11/08/2016 10:21 Prescription Detail 75 MILLIGRAMS ORAL DAILY Sertraline 50MG Oral Tablet [id number] 50 MILLIGRAMS DAILY ORAL 11/08/2016 10:21 Prescription Detail 50 MILLIGRAMS ORAL DAILY Problems Problem Code Start Date Resolved Date Status Sepsis 47601812 11/05/2016 Active Cellulitis 244653477 11/05/2016 Active Procedures Procedure Code Procedure Type Date Debridement, muscle and/or fascia; first 20 sq cm or less 48849 CPT 10/16/2016 ^SENSITIVITY [id number] SNOMED CT 10/16/2016 ^CULTURE AEROBIC ID [id number] SNOMED CT 10/16/2016 BEDSIDE GLUCOSE 83483413 SNOMED CT 10/16/2016 CULTURE MISC [id number] SNOMED CT 10/16/2016 Results BEDSIDE GLUCOSE - Collect Date/Time: 10/16/2016 10:39 Test Name Code Test Result Test Units Test Ref Range GLUCOSE POCT 180 MG/DL L=70 H=100 Function Status Unknown or [...] Code Start Date End Date Never smoker [id number] Vital Signs Vital Sign Value Unit Date/Time Recent/Initial? BP Systolic 127 mm[Hg] 10/16/2016 12:02 Initial VS BP Diastolic 37 mm[Hg] 10/16/2016 12:02 Initial VS Respiratory Rate 11 /min 10/16/2016 12:02 Initial VS Heart Rate 75 /min 10/16/2016 12:02 Initial VS O2 % BldC Oximetry 100 % 10/16/2016 12:02 Initial VS Respiratory Rate 23 /min 10/16/2016 12:44 Most Recent VS O2 % BldC Oximetry 97 % 10/16/2016 12:44 Most Recent VS BP Systolic 118 mm[Hg] 10/16/2016 12:48 Most Recent VS BP Diastolic 59 mm[Hg] 10/16/2016 12:48 Most Recent VS Heart Rate 79 /min 10/16/2016 12:48 Most Recent VS Function Status Unknown or Not Available. Goals Unknown or Not Available. ASSESSMENTS Unknown or Not Available. Health Concerns Section Unknown or Not Available.
--- OUTSIDE RECORDS SUMMARY | 2018-09-10 11:28 | XMS REPORT ---
Author Author Susan Menendez [facility] Address [address] [place], [place] [address] Care Team Providers Care Brush Holder Inspector Name Role Phone Susan Menendez PCP Victorina Garcia PreferredProvider Allergies and Adverse Reactions Name Reaction Notes SULFA (SULFONAMIDE ANTIBIOTICS) amoxicillin morphine Plan of Treatment Planned Activity Comments Planned Date Planned Time Plan/Goal HEMOGLOBIN A1C 12/15/2017 12:00 AM Medications Active Name Start Date Estimated Completion Date SIG Comments Flonase Allergy Relief 50 mcg/actuation nasal spray,suspension 08/31/2015 inhale 2 sprays (100 mcg) in each nostril by intranasal route once daily gabapentin 100 mg oral capsule 12/21/2017 12/16/2018 take 1 capsule by oral route daily for 90 days levothyroxine 112 mcg oral tablet 12/21/2017 12/16/2018 take 1 tablet (112 mcg) by oral route once daily for 90 days lisinopril 20 mg oral tablet 12/21/2017 12/16/2018 take 1 tablet (20 mg) by oral route once daily for 90 days Plavix 75 mg oral tablet 12/21/2017 12/16/2018 take 1 tablet (75 mg) by oral route once daily for 90 days sertraline 50 mg oral tablet 12/21/2017 12/16/2018 take 1 tablet (50 mg) by oral route once daily for 90 days Lantus U-100 Insulin 100 unit/mL subcutaneous solution 12/21/2017 12/16/2018 inject 6 units by subcutaneous route 2 times a day for 90 days Novolog U-100 Insulin aspart 100 unit/mL subcutaneous solution 12/21/2017 12/16/2018 inject 5 units by subcutaneous route 4 times a day for 90 days Name Start Date Expiration Date SIG Comments amoxicillin 500 mg oral tablet 08/31/2015 09/10/2015 Take one tablet three times a day for 10 days Discontinued Name Start Date Discontinued Date SIG Comments lisinopril 10 mg oral tablet 09/23/2016 take 1 tablet (10 mg) by oral route once daily sertraline 25 mg oral tablet 09/23/2016 take 1 tablet by oral route daily atorvastatin 80 mg oral tablet 12/15/2017 take 1 tablet (80 mg) by oral route once daily aspirin 325 mg oral tablet 09/23/2016 take 1 tablet (325 mg) by oral route every 6 hours as needed cranberry 400 mg oral capsule 09/23/2016 take 1 capsule by oral route daily Humalog 100 unit/mL subcutaneous cartridge 09/23/2016 inject by subcutaneous route per prescriber's instructions. Insulin dosing requires individualization. lorazepam 0.5 mg oral tablet 09/23/2016 take 1 tablet by oral route daily promethazine 25 mg oral tablet 09/23/2016 take 1 tablet by oral route 3 times a day as needed Flonase Allergy Relief 50 mcg/actuation nasal spray,suspension 09/01/2015 09/23/2016 INHALE 2 SPRAYS (100 MCG) IN EACH NOSTRIL BY INTRANASAL ROUTE ONCE DAILY Xarelto 15 mg oral tablet 10/01/2016 take 1 tablet (15 mg) by oral route once daily with the evening meal furosemide 40 mg oral tablet 12/15/2017 take 1 tablet (40 mg) by oral route once daily [place] 5-325 mg oral tablet 12/15/2017 take 1 tablet by oral route every 6 hours as needed for pain Problem List Description Status Onset Diabetes Active Hypertension Active Hypothyroidism Active Peripheral vascular disease Active Hypercholesteremia Active Vital Signs Date Time BP-Sys(mm[Hg] BP-Yamile(mm[Hg]) HR(bpm) RR(rpm) Temp WT HT HC BMI BSA BMI Percentile O2 Sat(%) 12/15/2017 9:12:00 AM 118 mmHg 60 mmHg 80 bpm 20 rpm 97.2 F 145.25 lbs 66 in 23.4437 kg/m 1.7516 m 93 % 10/01/2016 1:50:00 PM 138 mmHg 50 mmHg 99 bpm 20 rpm 96.8 F 138 lbs 62 in 25.24 kg/m2 1.65 m2 94 % 09/03/2016 3:39:00 PM 123 mmHg 61 mmHg 71 bpm 17 rpm 96.8 F 138 lbs 62 in 25.2403 kg/m 1.6548 m 95 % 08/31/2015 3:57:00 PM 126 mmHg 70 mmHg 78 bpm 22 rpm 96.7 F 144.312 lbs 62 in 26.3948 kg/m 1.69 m2 97 % Social History Name Description Comments Tobacco Never smoker Alcohol Never History of Procedures Date Ordered Description Order Status 12/15/2017 11:48 AM GLYCOSYLATED HEMOGLOBIN TEST Reviewed 12/15/2017 12:00 AM FLU VAC NO PRSV 4 FANNIE 3 YRS+ Reviewed 12/15/2017 12:00 AM PNEUMOCOCCAL VACC 13 FANNIE IM Reviewed Results Summary Date and Description Results 12/15/2017 11:48 AM Hemoglobin A1c 7.80 % History Of Immunizations Name Date Admin Mfg Name Mfg Code Trade Name Lot# Route Inj Vis Given Vis Pub CVX Influenza 12/15/2017 GlaxoSmithKline SKB Flulaval quadrivalent [id number] Intramuscular Left Upper Deltoid 12/15/2017 03/30/2018 158 Pneumococcal 12/15/2017 Jan [facility] 13 [id number] Intramuscular Left Mid Deltoid 12/15/2017 03/30/2018 133 History of Past Illness Name Date of Onset Comments Diabetes Hypothyroidism Stroke Hypertension UTI (lower urinary tract infection) Anxiety Claudication of left lower extremity Peripheral vascular disease Hypercholesteremia Depression CVA (cerebral vascular accident) DVT (deep venous thrombosis) OME (otitis media with effusion) Aug 31 2015 4:00PM Delayed wound healing Sep 23 2016 3:50PM Non healing left heel wound Oct 01 2016 1:50PM Postoperative Follow-up Oct 29 2016 1:06PM Peripheral vascular disease Nov 20 2016 1:26PM Wound dehiscence, surgical, sequela Nov 20 2016 1:26PM Type 1 diabetes mellitus with diabetic polyneuropathy Dec 15 2017 9:25AM Immunization deficiency Dec 15 2017 9:25AM Coronary artery disease involving [place] coronary artery of [place] heart without angina pectoris Dec 15 2017 9:25AM PVD (peripheral vascular disease) Dec 15 2017 9:25AM Balance problem Dec 15 2017 9:25AM Payers Insurance Name Company Name Plan Name Plan Number Policy Number Policy Group Number Start Date Medicare [facility] Medicare [facility] [id number] N/A [place] /AETNA Medicare Supplement Claims [id number] Saturday, 2010 Medicare Part B Medicare Of [place] [id number] Saturday, 2010 Medicare Part A Medicare - Lab/Xray [id number] N/A History of Encounters Visit Date Visit Type Provider 12/15/2017 Office visit Susan Menendez MD 09/08/2017 [facility] Kyle Barraza MD 09/07/2017 [facility] Kyle Barraza MD 09/07/2017 [facility] Ashwin Guillen MD 09/06/2017 [facility] Kyle Barraza MD 11/21/2016 Surgery Fracisco Bhatt MD 11/05/2016 [facility] Ashwin Guillen MD 11/05/2016 [facility] Kyle Barraza MD 10/16/2016 Surgery Fracisco Bhatt MD 10/01/2016 Office visit Fracisco Bhatt MD 09/22/2016 Office visit Fracisco Bhatt MD 08/31/2015 Office visit Victorina Garcia APRN
--- OUTSIDE RECORDS SUMMARY | 2018-09-10 11:28 | XMS REPORT ---
Author Author [facility] Medical Staff Organization [facility] Address [address] [place], [place] [address] Phone [phone] Care Team Providers Care S Iron Worker Name Role Phone BETTINA CHENG DO PP [phone] PROSPER BETTINA HARJIT [phone] Summary purpose TRANSITION OF CARE AUTO GENERATION Chief Complaint and Reason for Visit Admit Diagnosis 1 E/O RIGHT THUMB CYST RIGHT LONG TENDON Admit Diagnosis 2 TRANSFER Problem list No authorized problems tracked for continuity of care are available for this vis it. Encounters The following conditions tracked for encounter diagnoses were recorded for this visit: Finding or Diagnosis Status Certainty Chronicity Onset *PAIN Active Medications No medications recorded for this patient visit Allergies, adverse reactions, alerts Allergen Category Ingredient Status Reaction Severity Onset Sulfa (Sulfonamide Antibiotics) Drug Allergy Sulfa (Sulfonamide Antibiotics) Confirmed or Verified hallucinations Severe Adult Immunizations No immunizations recorded for this patient visit Relevant diagnostic tests and/or laboratory data RESULTS Chemistry :25:00 Result Normal Range Units Sodium 140 134-145 mEq/l Potassium 4.2 3.5-5.1 mEq/l Chloride 104 98-107 mEq/l CO2 H 28.7 22-28 mEq/l Glucose H 177 70-105 mg/dl BUN H 20 7-18 mg/dl Creatinine 0.83 0.6-1.0 mg/dl Calcium 8.6 8.4-10.2 mg/dl Osmolality 286.4 280-300 mOsm/L Anion GAP L 7.3 8-16 BUN/Creatinine Ratio H 24.1 10-20 Estimated GFR 68 >=60 mL/min/1.7 Hematology :25:00 Result Normal Range Units WBC 7.8 4.8-10.8 103/uL RBC 4.3 4.2-5.4 106/uL HGB 12.1 12.0-16.0 g/dl HCT 38.6 36.9-47.0 % MCV 89.4 81-99 FL MCH 28.0 27-31 pg MCHC L 31.3 33-37 g/dl RDW 13.5 11.5-15.5 % PLT 219 130-400 103/uL MPV H 12.0 7.3-10.4 FL Neutro % 50.9 40-70 % Lymph % 37.0 20-40 % [place] % 6.8 0-10.0 % Eos % 4.1 0-7.0 % Baso % 0.9 0-2 % Neutro # 4.0 1.5-7.5 103/uL Lymph # 2.9 0.9-4.0 103/uL [place] # 0.5 0-0.8 103/uL Eos # 0.3 0-0.6 103/uL Baso # 0.1 0-0.1 103/uL Radiology Results :25:00 Result Normal Range Units MPV H 12.0 7.3-10.4 FL History of procedures Procedure Code Code Type Description Date Performed Performing Physician 06603 CPT-4 COMPLETE CBC W/AUTO DIFF WBC 06-18-2015 [facility] 48405 CPT-4 METABOLIC PANEL TOTAL CA 06-18-2015 [facility] 00270 CPT-4 ELECTROCARDIOGRAM, TRACING 06-18-2015 [facility] 96103 CPT-4 ROUTINE VENIPUNCTURE 06-18-2015 [facility] Functional status Functional Status Finding Observation Time Hearing Prob Loc bilateral 12-94-000051:05 Vision Problems yes 33-64-143854:05 Vision Correct Dev glasses 57-31-679333:05 Ambulation Asst Dev none 27-16-276991:05 Range of Motion limited :45 Muscle Strength RUE 5 ROM full resist 55-05-285495:45 Muscle Strength RLE 5 ROM full resist 54-58-335786:45 Muscle Strength LUE 4 ROM slight resist :45 Muscle Strength LLE 4 ROM slight resist :45 Transfers assist x 1 96-78-881162:45 Ambulation in room 00-62-755787:45 Balance unsteady 63-97-811052:45 Bathing Assistance none 07-44-615488:05 Eating Assistance none 87-29-627206:05 Dressing Assistance none 89-75-559108:05 Toileting Assistance none :05 Transfer Assistance none :05 Decline Slf Care/Mob no :05 Phys Cond Stable yes :05 Nutrition normal 15-36-629029:45 Diet regular :45 Oral Cavity moist and intact :45 Teeth intact :45 Dental Hygiene good :45 Abdomen Appearance flat :45 Abdomen non-tender :45 Bowel Sounds present :45 NG Tube no :45 Feeding Tube none :45 Arredondo no :45 Cont Bladder Irr no :45 Ostomy no :45 Stool normal :45 Urination normal :45 Quality sym/unlabored :45 Cough absent :45 Breath Sounds RUL clear :45 Breath Sounds RML clear :45 Breath Sounds RLL clear :45 Breath Sounds SHRUTHI clear :45 Breath Sounds LLL clear :45 Airway natural :45 Chest Tube no :45 Oxygen no :30 Oxygen Mask Type nasal cannula :45 Oxygen Flow Rate 1 :45 C-PAP no :45 BI-PAP no :45 Temp >100.4 no :45 Temp <96.8 no :45 Chills with rigors no :45 HR > 90bpm no :45 Respirations > 20 no :45 Systolic <90 no :45 headache stiff neck no :45 IV Site Location Rt wrist :45 IV Type peripheral :45 IV Site Information discontinued :45 IV Site Start Attmpt 3 times :45 IV Site [place] 20 :45 IV Site Appearance WNL :45 IV Site Color clear :45 IV Site Patent yes :45 Dressing Type occlusive :45 Nursing Note Pt per w/c to west entrance accompanied by spouse Neal. Pt in good condition with all belongings intact. :00 Cognitive Status Finding Observation Time Learning Ability comprehends well :45 Neurological yes Comment: hx of stroke :45 Psychological no :45 Physical no :45 Hearing yes :45 Can Filling Room Sweeper Needed no :45 Sign Language no :45 Emotional no :45 Vision no :45 Laguage no :45 Financial no :45 Vital signs Type Value Date Respiration Rate 18breaths per minute :30 Pulse 80beats per minute :30 Oxygen Saturation 92% :30 BP Systolic 124mmHg :30 BP Diastolic 52mmHg :30 Temperature 98.2F :38 Height 62inches :05 Weight 146LB 99-09-224226:05 Social history Type Value Smoking Status NEVER SMOKER Treatment Plan No treatment plan text is available for this visit. Hospital discharge instructions Discharge Date/Time 06/20/15 1400 Accompanied By neal Relationship spouse/signif other Dismissal Condition good Disposition on DC home Valuables no DC Inst/Educ Give yes Exit Care Educ Given yes Med/Side Effects Rev yes PNE Vac Never Flu Vac 2014 Tetanus Vac 2014 Diet Explained yes Follow up appt already scheduled Follow Up Appt D/T 07/03/15
--- OUTSIDE RECORDS SUMMARY | 2018-09-10 11:28 | XMS REPORT ---
Author Author [facility] Medical Staff Organization [facility] Address [address] [place], [place] [address] Phone [phone] Care Team Providers Care Director Of Medical Staff Services Name Role Phone BETTINA CHENG DO PP [phone] Summary purpose TRANSITION OF CARE AUTO GENERATION Chief Complaint and Reason for Visit No authorized Reason for Visit (Admitting Diagnosis) is available for this visit . Problem list No authorized problems tracked for continuity of care are available for this vis it. Encounters No authorized problems tracked for encounter diagnoses are available for this vi sit. Medications No medications recorded for this patient visit Allergies, adverse reactions, alerts Allergen Category Ingredient Status Reaction Severity Onset Sulfa (Sulfonamide Antibiotics) Drug Allergy Sulfa (Sulfonamide Antibiotics) Confirmed or Verified hallucinations Severe Adult Immunizations No immunizations recorded for this patient visit Relevant diagnostic tests and/or laboratory data No authorized results are available for this patient visit History of procedures No procedures recorded for this patient visit. Functional status No functional or cognitive status observations are available for this visit. Vital signs No authorized vital signs are available for this visit. Social history No Social History or smoking status observations were recorded for this visit. ( Unknown if ever smoked.) Treatment Plan No treatment plan text is available for this visit. Hospital discharge instructions No discharge instruction text is available for this visit.
--- OUTSIDE RECORDS SUMMARY | 2018-09-10 11:28 | XMS REPORT ---
Author Author [facility] Medical Staff Organization [facility] Address [address] [place], [place] [address] Phone [phone] Care Team Providers Care Cut And Cover Line Worker Name Role Phone BETTINA CHENG DO PP [phone] Summary purpose TRANSITION OF CARE AUTO GENERATION [...] for this patient visit History of procedures Procedure Code Code Type Description Date Performed Performing Physician L3808 CPT-4 WHFO, RIGID W/O JOINTS 07-03-2015 [facility] Functional status No functional or cognitive status [...]
--- OUTSIDE RECORDS SUMMARY | 2018-09-10 11:28 | XMS REPORT ---
Author Author [facility] Medical Staff Organization [facility] Address [address] [place], [place] [address] Phone [phone] Care Team Providers Care Lasting Machine Operator Hand Method Name Role Phone BETTINA CHENG DO PP [phone] Summary purpose TRANSITION OF CARE AUTO GENERATION [...]
--- OUTSIDE RECORDS SUMMARY | 2018-09-10 11:28 | XMS REPORT ---
Author Author [facility] Organization [facility] Address [address] [place], [place] [address] Phone [phone] Care Team Providers Care Residential Nurse Name Role Phone BETTINA CHENG DO PP [phone] PROSPER BETTINA HARJIT [phone] Summary purpose TRANSITION OF CARE AUTO GENERATION [...] 40-70 % Lymph % 37.0 20-40 % [place] % 6.8 0-10.0 % Eos % 4.1 0-7.0 % Baso % 0.9 0-2 % Neutro # 4.0 1.5-7.5 103/uL Lymph # 2.9 0.9-4.0 103/uL [place] # 0.5 0-0.8 103/uL Eos # 0.3 0-0.6 103/uL Baso # 0.1 0-0.1 103/uL Radiology Results :25:00 Result Normal Range Units MPV H 12.0 7.3-10.4 FL History of procedures Procedure Code Code Type Description Date Performed Performing Physician 40112 CPT-4 COMPLETE CBC W/AUTO DIFF WBC 06-18-2015 [facility] 93154 CPT-4 METABOLIC PANEL TOTAL CA 06-18-2015 [facility] 41732 CPT-4 ELECTROCARDIOGRAM TRACING 06-18-2015 [facility] 68817 CPT-4 ROUTINE VENIPUNCTURE 06-18-2015 [facility] Functional status Functional Status Finding Observation Time Hearing Prob Loc bilateral 22-72-654666:05 Vision Problems yes 59-78-769169:05 Vision Correct Dev glasses 24-13-556792:05 Ambulation Asst Dev none 89-18-975929:05 Range of Motion limited :45 Muscle Strength RUE 5 ROM full resist 28-04-246417:45 Muscle Strength RLE 5 ROM full resist :45 Muscle Strength LUE 4 ROM slight resist :45 Muscle Strength LLE 4 ROM slight resist :45 Transfers assist x 1 00-83-284098:45 Ambulation in room 56-82-771923:45 Balance unsteady 05-70-333505:45 Bathing Assistance none 14-15-846487:05 Eating Assistance none 01-54-577569:05 Dressing Assistance none 62-95-400323:05 Toileting Assistance none 59-32-208769:05 Transfer Assistance none 35-59-591405:05 Decline Slf Care/Mob no 64-48-646674:05 Phys Cond Stable yes 99-68-382236:05 Nutrition normal 02-56-701703:45 Diet regular 54-10-658958:45 Oral Cavity moist and intact :45 Teeth intact :45 Dental Hygiene good 93-32-558266:45 Abdomen Appearance flat :45 Abdomen non-tender 09-72-561848:45 Bowel Sounds present :45 NG Tube no [...] :45 Physical no :45 Hearing yes :45 Diploma Medical Assistant Needed no :45 Sign Language no :45 Emotional no :45 Vision no :45 [place] no :45 Financial no :45 Vital signs Type Value Date Respiration Rate 18breaths per minute :30 Pulse 80beats per minute :30 Oxygen Saturation 92% :30 BP Systolic 124mmHg :30 BP Diastolic 52mmHg :30 Temperature 98.2F :38 Height 62inches :05 Weight 146LB 39-26-289297:05 Social history Type Value Smoking Status NEVER [...]
--- OUTSIDE RECORDS SUMMARY | 2018-09-10 11:29 | XMS REPORT ---
Author Author Susan Menendez [facility] Address [address] [place], [place] [address] Care Team Providers Care Media Services Specialist Name Role Phone Susan eMnendez PCP Victorina Garcia PreferredProvider Allergies and Adverse [...] by oral route daily for 90 days Lantus U-100 Insulin 100 unit/mL subcutaneous solution 12/21/2017 12/16/2018 inject by subcutaneous route as per insulin protocol for 90 days levothyroxine 112 mcg oral tablet 12/21/2017 12/16/2018 take 1 tablet (112 mcg) by oral route once daily for 90 days lisinopril 20 mg oral tablet 12/21/2017 12/16/2018 take 1 tablet (20 mg) by oral route once daily for 90 days Novolog U-100 Insulin aspart 100 unit/mL subcutaneous solution 12/21/2017 12/16/2018 inject by subcutaneous route per prescriber's instructions. Insulin dosing requires individualization. for 90 days Plavix 75 mg oral tablet 12/21/2017 12/16/2018 take 1 tablet (75 mg) by oral route once daily for 90 days sertraline 50 mg oral tablet 12/21/2017 12/16/2018 take 1 tablet (50 mg) by oral route once daily for 90 days Name Start Date Expiration [...] (40 mg) by oral route once daily [place] 5-325 mg oral tablet 12/15/2017 take 1 [...] 158 Pneumococcal 12/15/2017 Jan [facility] 13 [id number] Intramuscular Left Mid Deltoid 12/15/2017 03/30/2018 133 [...] 15 2017 9:25AM Coronary artery disease involving [place] coronary artery of [place] heart without angina pectoris Dec 15 2017 9:25AM PVD (peripheral vascular disease) Dec 15 2017 9:25AM Balance problem Dec 15 2017 9:25AM Payers Insurance Name Company Name Plan Name Plan Number Policy Number Policy Group Number Start Date Medicare [facility] Medicare RH [id number] N/A [place] /AETNA Medicare Supplement Claims [id number] Saturday, 2010 Medicare Part B Medicare Of [place] [id number] Saturday, 2010 Medicare Part A Medicare - Lab/Xray [id number] N/A History of Encounters Visit Date Visit Type Provider 12/15/2017 Office visit Susan Menendez MD 09/08/2017 [facility] Kyle Barraza MD 09/07/2017 [facility] Kyle Barraza MD 09/07/2017 [facility] Ashwin Guillen MD 09/06/2017 [facility] Kyle Barraza MD 11/21/2016 Surgery Fracisco Bhatt MD 11/05/2016 [facility] Ashwin Guillen MD 11/05/2016 [facility] Kyle Barraza MD 10/16/2016 Surgery Fracisco Bhatt MD 10/01/2016 Office visit Fracisco Bhatt MD 09/22/2016 Office visit Fracisco Bhatt MD 08/31/2015 Office visit Victorina Garcia APRN
--- OUTSIDE RECORDS SUMMARY | 2018-09-10 11:29 | XMS REPORT ---
Author Author Susan Menendez [facility] Address [address] [place], [place] [address] Care Team Providers Care Retention Representative Name Role Phone Susan Menendez PCP Victorina [...] (40 mg) by oral route once daily [place] 5-325 mg oral tablet 12/15/2017 take 1 [...] 158 Pneumococcal 12/15/2017 Jan [facility] 13 [id number] Intramuscular Left Mid Deltoid 12/15/2017 03/30/2018 133 [...] 15 2017 9:25AM Coronary artery disease involving [place] coronary artery of [place] heart without angina pectoris Dec 15 2017 9:25AM PVD (peripheral vascular disease) Dec 15 2017 9:25AM Balance problem Dec 15 2017 9:25AM Payers Insurance Name Company Name Plan Name Plan Number Policy Number Policy Group Number Start Date Medicare [facility] Medicare RH [id number] N/A Vincentian [place] /AETNA Medicare Supplement Claims [id number] Saturday, 2010 Medicare Part B Medicare Of [place] [id number] Saturday, 2010 Medicare Part A Medicare - Lab/Xray [id number] N/A History of Encounters Visit Date Visit Type Provider 12/15/2017 Office visit Susan Menendez MD 09/08/2017 [facility] Kyle Barraza MD 09/07/2017 [facility] Kyle Barraza MD 09/07/2017 [facility] Ashwin Guillen MD 09/06/2017 [facility] Kyle Barraza MD 11/21/2016 Surgery Fracisco Bhatt MD 11/05/2016 [facility] Ashwin Guillen MD 11/05/2016 [facility] Kyle Barraza MD 10/16/2016 Surgery Fracisco Bhatt MD 10/01/2016 Office visit Fracisco Bhatt MD 09/22/2016 Office visit Fracisco Bhatt MD 08/31/2015 Office visit Victorina Garcia APRN
--- OUTSIDE RECORDS SUMMARY | 2018-09-10 11:29 | XMS REPORT ---
Author Author Susan Menendez [facility] Address [address] [place], [place] [address] Care Team Providers Care Marble Installer Supervisor Name Role Phone Susan Menendez PCP Victorina [...] once daily gabapentin 100 mg oral capsule 12/18/2017 12/13/2018 take 1 capsule by oral route daily for 90 days Lantus U-100 Insulin 100 unit/mL subcutaneous solution 12/18/2017 12/13/2018 inject by subcutaneous route as per insulin protocol for 90 days levothyroxine 112 mcg oral tablet 12/18/2017 12/13/2018 take 1 tablet (112 mcg) by oral route once daily for 90 days lisinopril 20 mg oral tablet 12/18/2017 12/13/2018 take 1 tablet (20 mg) by oral route once daily for 90 days Novolog U-100 Insulin aspart 100 unit/mL subcutaneous solution 12/18/2017 12/13/2018 inject by subcutaneous route per prescriber's instructions. Insulin dosing requires individualization. for 90 days Plavix 75 mg oral tablet 12/18/2017 12/13/2018 take 1 tablet (75 mg) by oral route once daily for 90 days sertraline 50 mg oral tablet 12/18/2017 12/13/2018 take 1 tablet (50 mg) by oral [...] (40 mg) by oral route once daily [place] 5-325 mg oral tablet 12/15/2017 take 1 [...] 158 Pneumococcal 12/15/2017 Jan [facility] 13 [id number] Intramuscular Left Mid Deltoid 12/15/2017 03/30/2018 133 [...] 15 2017 9:25AM Coronary artery disease involving pokagon coronary artery of pokagon heart without angina pectoris Dec 15 2017 9:25AM PVD (peripheral vascular disease) Dec 15 2017 9:25AM Balance problem Dec 15 2017 9:25AM Payers Insurance Name Company Name Plan Name Plan Number Policy Number Policy Group Number Start Date Medicare [facility] Medicare RH [id number] N/A [place] /AETNA Medicare Supplement Claims [id number] Saturday, 2010 Medicare Part B Medicare Of [place] [id number] Saturday, 2010 Medicare Part A Medicare - Lab/Xray [id number] N/A History of Encounters Visit Date Visit Type Provider 12/15/2017 Office visit Susan Menendez MD 09/08/2017 [facility] Kyle Barraza MD 09/07/2017 [facility] Kyle Barraza MD 09/07/2017 [facility] Ashwin Guillen MD 09/06/2017 [facility] Kyle Barraza MD 11/21/2016 Surgery Fracisco Bhatt MD 11/05/2016 [facility] Ashwin Guillen MD 11/05/2016 [facility] Kyle Barraza MD 10/16/2016 Surgery Fracisco Bhatt MD 10/01/2016 Office visit Fracisco Bhatt MD 09/22/2016 Office visit Fracisco Bhatt MD 08/31/2015 Office visit Victorina Garcia APRN
--- OUTSIDE RECORDS SUMMARY | 2018-09-10 11:30 | XMS REPORT ---
Author Author Fracisco Bhatt [facility] Address [address] [place], [place] [address] Care Team Providers Care Assistant Manager Airside Operations Name Role Phone Fracisco Bhatt PCP Unavailable Victorina Garcia PreferredProvider Unavailable Allergies and Adverse Reactions Name Reaction Notes SULFA (SULFONAMIDE ANTIBIOTICS) amoxicillin morphine Plan of Treatment Not available. Medications Active Name Start Date Estimated Completion Date SIG Comments levothyroxine 112 mcg oral tablet take 1 tablet (112 mcg) by oral route once daily atorvastatin 80 mg oral tablet take 1 tablet (80 mg) by oral route once daily Lantus 100 unit/mL subcutaneous solution inject by subcutaneous route as per insulin protocol Flonase Allergy Relief 50 mcg/actuation nasal spray,suspension 08/31/2015 inhale 2 sprays (100 mcg) in each nostril by intranasal route once daily sertraline 50 mg oral tablet take 1 tablet (50 mg) by oral route once daily Xarelto 15 mg oral tablet take 1 tablet (15 mg) by oral route once daily with the evening meal lisinopril 20 mg oral tablet take 1 tablet (20 mg) by oral route once daily furosemide 40 mg oral tablet take 1 tablet (40 mg) by oral route once daily gabapentin 100 mg oral capsule take 1 capsule by oral route daily [place] 5-325 mg oral tablet take 1 tablet by oral route every 6 hours as needed for pain Plavix 75 mg oral tablet take 1 tablet (75 mg) by oral route once daily Novolog 100 unit/mL subcutaneous solution inject by subcutaneous route per prescriber's instructions. Insulin dosing requires individualization. Name Start Date Expiration Date SIG Comments amoxicillin 500 mg oral tablet 08/31/2015 09/10/2015 Take one tablet three times a day for 10 days Discontinued Name Start Date Discontinued Date SIG Comments lisinopril 10 mg oral tablet 09/23/2016 take 1 tablet (10 mg) by oral route once daily sertraline 25 mg oral tablet 09/23/2016 take 1 tablet by oral route daily aspirin 325 mg oral tablet 09/23/2016 [...] EACH NOSTRIL BY INTRANASAL ROUTE ONCE DAILY Problem List Description Status Onset Diabetes Active Hypertension Active Hypothyroidism Active Peripheral Vascular Disease Active Hypercholesteremia Active Vital Signs Date Time BP-Sys(mm[Hg] BP-Yamile(mm[Hg]) HR(bpm) RR(rpm) Temp WT HT HC BMI BSA BMI Percentile O2 Sat(%) 09/03/2016 3:39:00 PM 123 mmHg 61 mmHg 71 bpm 17 rpm 96.8 F 138 lbs 62 in 25.24 kg/m2 1.65 m2 95 % 08/31/2015 3:57:00 PM 126 mmHg 70 mmHg 78 bpm 22 rpm 96.7 F 144.312 lbs 62 in 26.3948 kg/m 1.6922 m 97 % Social History Name Description Comments Tobacco Never smoker Alcohol Never History of Procedures Not available. Results Summary Not available. History Of Immunizations Not available. History of Past Illness Name Date of Onset Comments Diabetes Hypothyroidism Stroke Hypertension UTI (lower urinary tract infection) Anxiety Claudication of left lower extremity Peripheral Vascular Disease Hypercholesteremia Depression CVA (cerebral vascular accident) DVT (deep venous thrombosis) OME (otitis media with effusion) Aug 31 2015 4:00PM Delayed wound healing Sep 23 2016 3:50PM Payers Insurance Name Company Name Plan Name Plan Number Policy Number Policy Group Number Start Date Medicare Part B Medicare Of [place] [id number] Saturday, 2010 [place] /AETNA Medicare Supplement Claims [id number] Saturday, 2010 History of Encounters Visit Date Visit Type Provider 09/22/2016 Office visit Fracisco Bhatt MD 08/31/2015 Office visit Victorina Garcia APRN
--- OUTSIDE RECORDS SUMMARY | 2018-09-10 11:30 | XMS REPORT ---
Author Author Fracisco Bhatt [facility] Address [address] [place], [place] [address] Care Team Providers Care Race Board Attendant Name Role Phone Fracisco Bhatt PCP Unavailable [...] (50 mg) by oral route once daily lisinopril 20 mg oral tablet take 1 tablet (20 mg) by oral route once daily furosemide 40 mg oral tablet take 1 tablet (40 mg) by oral route once daily gabapentin 100 mg oral capsule take 1 capsule by oral route daily [place] 5-325 mg oral tablet take 1 tablet [...] route once daily with the evening meal Problem List Description Status Onset Diabetes Active Hypertension Active Hypothyroidism Active Peripheral vascular disease Active Hypercholesteremia Active Vital Signs Date Time BP-Sys(mm[Hg] BP-Yamile(mm[Hg]) HR(bpm) RR(rpm) Temp WT HT HC BMI BSA BMI Percentile O2 Sat(%) 10/01/2016 1:50:00 PM 138 mmHg 50 mmHg 99 bpm 20 rpm 96.8 F 138 lbs 62 in 25.24 kg/m2 1.65 m2 94 % 09/03/2016 3:39:00 PM 123 mmHg 61 mmHg 71 bpm 17 rpm 96.8 F 138 lbs 62 in 25.2403 kg/m 1.6548 m 95 % 08/31/2015 3:57:00 PM 126 mmHg 70 mmHg 78 bpm 22 rpm 96.7 F 144.312 lbs 62 in 26.39 kg/m2 1.69 m2 97 % Social History Name Description Comments Tobacco Never smoker Alcohol Never History of Procedures Not available. Results Summary Date and Description Results 10/16/2016 10:39 AM GLUCOSE POCT 180.0 mg/dL 10/16/2016 12:18 PM SPECIMEN SOURCE: LEFT LOWER LEG SPECIMEN SOURCE: LEFT LOWER LEG History Of Immunizations Not available. History of [...] 1:50PM Postoperative Follow-up Oct 29 2016 1:06PM Payers Insurance Name Company Name Plan Name Plan Number Policy Number Policy Group Number Start Date Medicare Part B Medicare Of [place] [id number] Saturday, 2010 Amadou Gonzalez /JORDON Medicare Supplement Claims [id number] Saturday, 2010 History of Encounters Visit Date Visit Type Provider 10/16/2016 Surgery Fracisco Bhatt MD 10/01/2016 Office visit Fracisco Bhatt MD 09/22/2016 Office visit Fracisco Bhatt MD 08/31/2015 Office visit Victorina Garcia APRN
--- OUTSIDE RECORDS SUMMARY | 2018-09-10 11:30 | XMS REPORT ---
Author Author Susan Menendez [facility] Address [address] [place], [place] [id number] Care Team Providers Care Crematory Attendant Name Role Phone Susan Menendez PCP Victorina Garcia PreferredProvider Allergies and Adverse Reactions Name Reaction Notes SULFA (SULFONAMIDE ANTIBIOTICS) amoxicillin morphine Plan of Treatment Planned Activity Comments Planned Date Planned Time Plan/Goal HEMOGLOBIN A1C 12/15/2017 12:00 AM Flu vaccine, Quadrivalent, Split Virus (single-use syringe) 12/15/2017 12:00 AM PREVNAR 13 12/15/2017 12:00 AM Medications Active Name Start Date Estimated Completion Date SIG Comments levothyroxine 112 mcg oral tablet take 1 tablet (112 mcg) by oral route once daily Lantus 100 [...] (20 mg) by oral route once daily gabapentin 100 mg oral capsule take 1 capsule by oral route daily Plavix 75 mg oral tablet take 1 [...] (40 mg) by oral route once daily [place] 5-325 mg oral tablet 12/15/2017 take 1 [...] 15 2017 9:25AM Coronary artery disease involving inupiat coronary artery of inupiat heart without angina pectoris Dec 15 2017 9:25AM PVD (peripheral vascular disease) Dec 15 2017 9:25AM Balance problem Dec 15 2017 9:25AM Payers Insurance Name Company Name Plan Name Plan Number Policy Number Policy Group Number Start Date Medicare RHC Medicare RHC [id number] N/A [place] /AETNA Medicare Supplement Claims [id number] Saturday, 2010 Medicare Part B Medicare Of [place] [id number] Saturday, 2010 Medicare Part A Medicare - Lab/Xray [id number] N/A History of Encounters Visit Date Visit Type Provider 12/15/2017 Office visit Susan Mennedez MD 09/08/2017 Hospital Kyle Barraza MD 09/07/2017 [facility] Kyle Barraza MD 09/07/2017 [facility] Ashwin Guillen MD 09/06/2017 [facility] Kyle Barraza MD 11/21/2016 Surgery Fracisco Bhatt MD 11/05/2016 [facility] Ashwin Guillen MD 11/05/2016 [facility] Kyle Barraza MD 10/16/2016 Surgery Fracisco Bhatt MD 10/01/2016 Office visit Fracisco Bhatt MD 09/22/2016 Office visit Fracisco Bhatt MD 08/31/2015 Office visit Victorina Garcia APRN
--- OUTSIDE RECORDS SUMMARY | 2018-09-10 11:30 | XMS REPORT ---
Author Author Susan Menendez [facility] Address [address] [place], [place] [address] Care Team Providers Care Smasher Hand Name Role Phone Susan Menendez PCP Victorina [...] (40 mg) by oral route once daily [place] 5-325 mg oral tablet 12/15/2017 take 1 [...] quadrivalent [id number] Intramuscular Left Upper Deltoid 12/15/2017 03/30/2017 158 Pneumococcal 12/15/2017 Jan [facility] 13 [id number] Intramuscular Left Mid Deltoid 12/15/2017 03/30/2017 133 History of Past Illness Name Date [...] 15 2017 9:25AM Coronary artery disease involving jamul coronary artery of jamul heart without angina pectoris Dec 15 2017 9:25AM PVD (peripheral vascular disease) Dec 15 2017 9:25AM Balance problem Dec 15 2017 9:25AM Payers Insurance Name Company Name Plan Name Plan Number Policy Number Policy Group Number Start Date Medicare RHC Medicare RHC [id number] N/A [place] /AETNA Medicare Supplement Claims [id number] Saturday, 2010 Medicare Part B Medicare Of [place] [id number] Saturday, 2010 Medicare Part A Medicare - Lab/Xray [id number] N/A History of Encounters Visit Date Visit Type Provider 12/15/2017 Office visit Susan Menendez MD 09/08/2017 [facility] Kyle Barraza MD 09/07/2017 [facility] Kyle Barraza MD 09/07/2017 [facility] Ashwin Guillen MD 09/06/2017 [facility] Kyle Barraza MD 11/21/2016 Surgery Fracisco Bhatt MD 11/05/2016 Hospital Ashwin Guillen MD 11/05/2016 [facility] Taqueria Barraza MD 10/16/2016 Surgery Fracisco Bhatt MD 10/01/2016 Office visit Fracisco Bhatt MD 09/22/2016 Office visit Fracisco Bhatt MD 08/31/2015 Office visit Victorina Garcia APRN
--- OUTSIDE RECORDS SUMMARY | 2018-09-10 11:31 | XMS REPORT ---
Author Author Fracisco Bhatt [facility] Address [address] [place], [place] [id number] Care Team Providers Care Archivist Nonprofit Foundation Name Role Phone Fracisco Bhatt PCP Unavailable [...] take 1 capsule by oral route daily [place] 5-325 mg oral tablet take 1 tablet [...] left heel wound Oct 01 2016 1:50PM Payers Insurance Name Company Name Plan Name Plan Number Policy Number Policy Group Number Start Date Medicare Part B Medicare Of [place] [id number] Saturday, 2010 [place] /AETNA Medicare Supplement Claims [id number] Saturday, 2010 History of Encounters Visit Date Visit Type Provider 10/01/2016 Office visit Fracisco Bhatt MD 09/22/2016 Office visit Fracisco Bhatt MD 08/31/2015 Office visit Victorina Garcia APRN
--- OUTSIDE RECORDS SUMMARY | 2018-09-10 11:31 | XMS REPORT ---
Author Author Ashwin Guillen Organization [facility] Address [address] [place], [place] [address] Care Team Providers Care Freight Flagman Name Role Phone Ashwin Guillen PCP Unavailable Victorina Garcia PreferredProvider Unavailable Allergies [...] take 1 capsule by oral route daily [place] 5-325 mg oral tablet take 1 tablet [...] LOWER LEG SPECIMEN SOURCE: LEFT LOWER LEG 11/11/2016 8:36 AM VANC TROUGH 23.90 mg/LCREATININE 0.70 mg/dLAGE 71 GFR NonAA 82 GFR AA 99 eGFR >60 mL/min/1.73meGFR AA* >60 History Of Immunizations Not available. History of [...] dehiscence, surgical, sequela Nov 20 2016 1:26PM Payers Insurance Name Company Name Plan Name Plan Number Policy Number Policy Group Number Start Date Medicare Part B Medicare Of [place] [id number] Saturday, 2010 [place] /AETNA Medicare Supplement Claims [id number] Saturday, 2010 History of Encounters Visit Date Visit Type Provider 11/05/2016 Hospital Ashwin Guillen MD 10/16/2016 Surgery Fracisco Bhatt MD 10/01/2016 Office visit Fracisco Bhatt MD 09/22/2016 Office visit Fracisco Bhatt MD 08/31/2015 Office visit Victorina Garcia APRN
--- OUTSIDE RECORDS SUMMARY | 2018-09-10 11:31 | XMS REPORT | Clinical Summary ---
Author Author Admin, VETO Organization [facility] Address Unknown Phone Unavailable Allergies, Adverse Reactions, Alerts Allergy Name Reaction Description Start Date Severity Status Provider SULFUR Critical Active Natty Geronimo MD Conditions or Problems Problem Name Problem Code Onset Date Status Entry Date Provider Comment Standard Description Annotate U T I-Recurrent 599.0 Active Natty Geronimo MD Urinary tract infection, site not specified FH Diabetes V18.0 Active Natty Geronimo MD Family history of diabetes mellitus Incomplete Bladder Emptying 788.21 Active Natty Geronimo MD Incomplete bladder emptying URETHRAL STENOSIS, MEATAL 598.9 Active Natty Geronimo MD Urethral stricture, unspecified Medication List Medication Instructions Start Date Stop Date Generic Name NDC Status Provider Patient Instruction FUROSEMIDE 20 MG TAB 1 tablet by mouth daily FUROSEMIDE 74169423709 Active Natty Geronimo MD Active MACROBID 100 MG CAPS 1 daily NITROFURANTOIN MONOHYD MACRO 49776638976 No Longer Active Natty Geronimo MD Active LISINOPRIL 10 MG TABS 1 tablet by mouth daily LISINOPRIL 46174196488 Active Natty Geronimo MD Active ASPIRIN 325 MG TAB Take one by mouth daily ASPIRIN 93984731746 Active Natty Geronimo MD Active CIPRO 500 MG TABS 1 tab every 12 hours po CIPROFLOXACIN HCL 75442990268 No Longer Active Natty Geronimo MD Active MECLIZINE HCL 25 MG TABS 1 tab 3 times a day po MECLIZINE HCL 72772342699 No Longer Active Natty Geronimo MD Active VENLAFAXINE HCL ER 37.5 MG [id number] 1 cap daily po VENLAFAXINE HCL 07861146090 No Longer Active Natty Geronimo MD Active SERTRALINE HCL 50 MG TABS take 1/2 tabs daily po SERTRALINE HCL 64883372537 Active Natty Geronimo MD Active NOVOLOG 100 UNIT/ML SOLN 3 units with 45g carbs TID INSULIN ASPART 22278296486 Active Natty Geronimo MD Active LEVOTHYROXINE SODIUM 88 MCG TABS 1 cap po daily LEVOTHYROXINE SODIUM 84177719564 Active Natty Geronimo MD Active LANTUS 100 UNIT/ML SOLN 12 units subq q hs INSULIN GLARGINE 13751147774 Active Natty Geronimo MD Active ATORVASTATIN CALCIUM 40 MG TABS ATORVASTATIN CALCIUM 24418629322 Active Natty Geronimo MD Active VENLAFAXINE HCL ER 37.5 MG [id number] 1 cap daily po VENLAFAXINE HCL ER 37.5 MG [id number] VENLAFAXINE HCL Inactive MECLIZINE HCL 25 MG TABS 1 tab 3 times a day po MECLIZINE HCL 25 MG TABS 030246 MECLIZINE HCL Inactive CIPRO 500 MG TABS 1 tab every 12 hours po CIPRO 500 MG TABS 926831 CIPROFLOXACIN HCL Inactive MACROBID 100 MG CAPS 1 daily MACROBID 100 MG CAPS [id number] NITROFURANTOIN MONOHYD MACRO Inactive Advance Directives Directive Description Start Date PERMISSION TO SHARE Vital Signs Date Name Value Unit Range Description blood pressure, diastolic - 8462-4 62 mm[Hg] BP brown blood pressure, systolic - 8480-6 106 mm[Hg] BP sys pulse rate E&M - 8867-4 81 /min Heart rate temperature E&M 97.8 [degF] Body temperature weight E&M - 3141-9 139.2 [lb_av] Weight Measured blood pressure, diastolic - 8462-4 68 mm[Hg] BP brown blood pressure, systolic - 8480-6 120 mm[Hg] BP sys pulse rate E&M - 8867-4 88 /min Heart rate temperature E&M 98.2 [degF] Body temperature weight E&M - 3141-9 142.5 [lb_av] Weight Measured blood pressure, diastolic - 8462-4 82 mm[Hg] BP brown blood pressure, systolic - 8480-6 142 mm[Hg] BP sys pulse rate E&M - 8867-4 81 /min Heart rate temperature E&M 97.8 [degF] Body temperature weight E&M - 3141-9 147.2 [lb_av] Weight Measured Diagnostic Results Date Name Value Unit Range Description Office Visit: 6 month check up - Chemistry RBC, urine, dipstick 1+ protein, total urine random negative mg/dL Office Visit: 6 month check up - Urinalysis pH, urine, semiquantitative 5 specific gravity, urine 1.020 urinalysis, routine Clean Catch culture status Yes ketones, urine, by test strip negative bilirubin, urine negative glucose, urine, semiquantitative negative urine color yellow appearance, urine clear leukocyte esterase, urine, by dipstick trace nitrite, urine, semiquantitative negative urobilinogen, urine, semiquantitative (dipstick) 0.2 protein, urine, semiquantitative (dipstick) negative Office Visit: Unable to urinate - Chemistry RBC, urine, dipstick negative protein, total urine random negative mg/dL Office Visit: Unable to urinate - Urinalysis pH, urine, semiquantitative 6 specific gravity, urine 1.020 ketones, urine, by test strip negative bilirubin, urine negative glucose, urine, semiquantitative negative urine color yellow appearance, urine clear leukocyte esterase, urine, by dipstick negative nitrite, urine, semiquantitative negative urobilinogen, urine, semiquantitative (dipstick) negative protein, urine, semiquantitative (dipstick) negative Encounters Code Encounter Date Provider Facility CPT-24907 Level 3 Est. Patient 20:49:20 CHART WRITER Natty Geronimo MD [facility] CPT-86218 Level 3 Est. Patient 16:32:50 CDT Natty Geronimo MD [facility] CPT-41674 Level 3 Est. Patient 08:03:52 CDT Natty Geronimo MD [facility] CPT-20951 Level 3 Est. Patient 14:45:27 CHART WRITER Natty Geronimo MD [facility] CPT-52570 Level 3 Est. Patient 16:37:13 CDT Natty Geronimo MD [facility] CPT-08968 Level 3 Est. Patient 18:07:25 CHART WRITER Natty Geronimo MD [facility] CPT-01129 Level 3 Est. Patient 15:51:31 CDT Natty Geronimo MD [facility] CPT-20406 Level 3 New Patient 16:51:22 CDT Natty Geronimo MD [facility] Procedures Code Procedure Name Date Entry Date Standard Description CPT-26224 Bladder Scan 20:49:22 CHART WRITER CPT-07055 Dil F ureth int 16:32:51 CDT CPT-40954 Bladder Scan 16:32:51 CDT CPT-83598 Bladder Scan 08:03:52 CDT CPT-93063 Urine Dip (Floor Use Only) 14:45:28 CHART WRITER CPT-67199 Bladder Scan 14:45:28 CHART WRITER CPT-24526 Urine Dip (Floor Use Only) 16:37:13 CDT CPT-84055 Bladder Scan 16:37:13 CDT CPT-57851 Urine Dip (Floor Use Only) 18:07:26 CHART WRITER CPT-70186 Bladder Scan 18:07:25 CHART WRITER CPT-44437 Urine Dip (Floor Use Only) 15:51:31 CDT CPT-13714 Bladder Scan 15:51:31 CDT CPT-14116 Bladder Scan 16:51:22 CDT
--- OUTSIDE RECORDS SUMMARY | 2018-09-10 11:31 | XMS REPORT ---
Author Author Victorina Garcia [facility] Address [address] [place], [place] [address] Care Team Providers Care Substance Abuse Services Director Name Role Phone Victorina Garcia PCP Unavailable Allergies and Adverse Reactions Name Reaction Notes No known drug allergy Plan of Treatment Not available. Medications Active Name Start Date Estimated Completion Date SIG Comments lisinopril 10 mg oral tablet take 1 tablet (10 mg) by oral route once daily levothyroxine 112 mcg oral tablet take 1 tablet (112 mcg) by oral route once daily sertraline 25 mg oral tablet take 1 tablet by oral route daily atorvastatin 80 mg oral tablet take 1 tablet (80 mg) by oral route once daily aspirin 325 mg oral tablet take 1 tablet (325 mg) by oral route every 6 hours as needed cranberry 400 mg oral capsule take 1 capsule by oral route daily Humalog 100 unit/mL subcutaneous cartridge inject by subcutaneous route per prescriber's instructions. Insulin dosing requires individualization. Lantus 100 unit/mL subcutaneous solution inject by subcutaneous route as per insulin protocol lorazepam 0.5 mg oral tablet take 1 tablet by oral route daily promethazine 25 mg oral tablet take 1 tablet by oral route 3 times a day as needed amoxicillin 500 mg oral tablet 08/31/2015 09/10/2015 Take one tablet three times a day for 10 days Flonase Allergy Relief 50 mcg/actuation nasal spray,suspension 08/31/2015 inhale 2 sprays (100 mcg) in each nostril by intranasal route once daily Flonase Allergy Relief 50 mcg/actuation nasal spray,suspension 09/01/2015 INHALE 2 SPRAYS (100 MCG) IN EACH NOSTRIL BY INTRANASAL ROUTE ONCE DAILY Problem List Not available. Vital Signs Date Time BP-Sys(mm[Hg] BP-Yamile(mm[Hg]) HR(bpm) RR(rpm) Temp WT HT HC BMI BSA BMI Percentile O2 Sat(%) 08/31/2015 3:57:00 PM 126 mmHg 70 mmHg [...] infection) Anxiety Claudication of left lower extremity OME (otitis media with effusion) Aug 31 2015 4:00PM Payers Insurance Name Company Name Plan Name Plan Number Policy Number Policy Group Number Start Date Medicare Part B Medicare Of [place] [id number] Saturday, 2010 [place] /AETNA Medicare Supplement Claims [id number] Saturday, 2010 History of Encounters Visit Date Visit Type Provider 08/31/2015 Office visit Victorina Garcia APRN
--- OUTSIDE RECORDS SUMMARY | 2018-09-10 11:32 | XMS REPORT | Clinical Summary ---
Author Author Admin, VETO Organization [facility] Address Unknown Phone Unavailable Allergies, Adverse [...] Active Natty Geronimo MD Incomplete bladder emptying Medication List Medication Instructions Start Date Stop Date Generic Name [facility] Status Provider Patient Instruction LISINOPRIL 10 MG TABS 1 tablet by mouth daily LISINOPRIL 11709575785 Active Natty Geronimo MD Active ASPIRIN 325 MG TAB Take one by mouth daily ASPIRIN 36490540073 Active Natty Geronimo MD Active MACROBID 100 MG CAPS 1 daily NITROFURANTOIN MONOHYD MACRO 63101706786 Active Natty Geronimo MD Active CIPRO 500 MG TABS 1 tab every 12 hours po CIPROFLOXACIN HCL 66484759497 No Longer Active Natty Geronimo MD Active MECLIZINE HCL 25 MG TABS 1 tab 3 times a day po MECLIZINE HCL 13220524523 No Longer Active Natty Geronimo MD Active VENLAFAXINE HCL ER 37.5 MG [id number]-GLS 1 cap daily po VENLAFAXINE HCL 27927617829 No Longer Active Natty Geronimo MD Active SERTRALINE HCL 50 MG TABS take 1/2 tabs daily po SERTRALINE HCL 85156688964 Active Natty Geronimo MD Active NOVOLOG 100 UNIT/ML SOLN 3 units with 45g carbs TID INSULIN ASPART 55250962522 Active Natty Geronimo MD Active LEVOTHYROXINE SODIUM 88 MCG TABS 1 cap po daily LEVOTHYROXINE SODIUM 36152318104 Active Natty Geronimo MD Active LANTUS 100 UNIT/ML SOLN 12 units subq q hs INSULIN GLARGINE 47026049266 Active Natty Geronimo MD Active ATORVASTATIN CALCIUM 40 MG TABS ATORVASTATIN CALCIUM 03004690459 Active Natty Geronimo MD Active VENLAFAXINE HCL ER 37.5 MG [id number] 1 cap daily po VENLAFAXINE HCL ER 37.5 MG [id number]-FKX VENLAFAXINE HCL Inactive MECLIZINE HCL 25 MG TABS 1 tab 3 times a day po MECLIZINE HCL 25 MG TABS 043174 MECLIZINE HCL Inactive CIPRO 500 MG TABS 1 tab every 12 hours po CIPRO 500 MG TABS 483805 CIPROFLOXACIN HCL Inactive Advance Directives Directive Description Start Date PERMISSION TO SHARE Vital Signs Date Name Value Unit Range Description blood pressure, diastolic - 8462-4 69 mm[Hg] BP brown blood pressure, systolic - 8480-6 118 mm[Hg] BP sys pulse rate E&M - 8867-4 86 /min Heart rate temperature E&M 98.1 [degF] Body temperature weight E&M - 3141-9 147 [lb_av] Weight Measured blood pressure, diastolic - 8462-4 71 mm[Hg] BP brown blood pressure, systolic - 8480-6 140 mm[Hg] BP sys pulse rate E&M - 8867-4 97 /min Heart rate temperature E&M 96.8 [degF] Body temperature weight E&M - 3141-9 144 [lb_av] Weight Measured Diagnostic Results Date Name Value Unit Range Description Office Visit: Follow up dilation - Chemistry protein, total urine random trace mg/dL RBC, urine, dipstick negative Office Visit: Follow up dilation - Urinalysis specific gravity, urine 1.010 ketones, urine, by test strip small (15) bilirubin, urine negative glucose, urine, semiquantitative trace pH, urine, semiquantitative 5 urine color yellow appearance, urine clear leukocyte esterase, urine, by dipstick trace nitrite, urine, semiquantitative negative urobilinogen, urine, semiquantitative (dipstick) 1 Office Visit: Follow up recurrent UTIs - Chemistry protein, total urine random negative mg/dL RBC, urine, dipstick negative Office Visit: Follow up recurrent UTIs - Urinalysis ketones, urine, by test strip negative bilirubin, urine negative glucose, urine, semiquantitative negative pH, urine, semiquantitative 7.5 specific gravity, urine 1.000 urine color yellow appearance, urine clear leukocyte esterase, urine, by dipstick negative nitrite, urine, semiquantitative negative urobilinogen, urine, semiquantitative (dipstick) 0.2 protein, urine, semiquantitative (dipstick) negative urinalysis, routine Clean Catch Encounters Code Encounter Date Provider Facility CPT-74285 Level 3 Est. Patient 16:37:13 CDT Natty Geronimo MD [facility] CPT-69822 Level 3 Est. Patient 18:07:25 INFORMATION TECHNOLOGY SPECIALIST Natty Geronimo MD [facility] CPT-94511 Level 3 Est. Patient 15:51:31 CDT Natty Geronimo MD [facility] CPT-20141 Level 3 New Patient 16:51:22 CDT Natty Geronimo MD [facility] Procedures Code Procedure Name Date Entry Date Standard Description CPT-89082 Urine Dip (Floor Use Only) 16:37:13 CDT CPT-95997 Bladder Scan 16:37:13 CDT CPT-88752 Urine Dip (Floor Use Only) 18:07:26 INFORMATION TECHNOLOGY SPECIALIST CPT-56800 Bladder Scan 18:07:25 INFORMATION TECHNOLOGY SPECIALIST CPT-65517 Urine Dip (Floor Use Only) 15:51:31 CDT CPT-62233 Bladder Scan 15:51:31 CDT CPT-77632 Bladder Scan 16:51:22 CDT
--- OUTSIDE RECORDS SUMMARY | 2018-09-10 11:32 | XMS REPORT | Clinical Summary ---
Author Author Admin, VETO Organization [facility] Address Unknown Phone Unavailable Allergies, Adverse Reactions, [...] Instructions Start Date Stop Date Generic Name [facility] Status Provider Patient Instruction LISINOPRIL 10 MG TABS 1 tablet by mouth daily LISINOPRIL 45598620713 Active Natty Geronimo MD Active ASPIRIN 325 MG TAB Take one by mouth daily ASPIRIN 95901766103 Active Natty Geronimo MD Active MACROBID 100 MG CAPS 1 daily NITROFURANTOIN MONOHYD MACRO 44557812893 Active Natty Geronimo MD Active CIPRO 500 MG TABS 1 tab every 12 hours po CIPROFLOXACIN HCL 81425063085 No Longer Active Natty Geronimo MD Active MECLIZINE HCL 25 MG TABS 1 tab 3 times a day po MECLIZINE HCL 66846111152 No Longer Active Natty Geronimo MD Active VENLAFAXINE HCL ER 37.5 MG [id number]-GHO 1 cap daily po VENLAFAXINE HCL 78614196629 No Longer Active Natty Geronimo MD Active SERTRALINE HCL 50 MG TABS take 1/2 tabs daily po SERTRALINE HCL 18915471257 Active Natty Geronimo MD Active NOVOLOG 100 UNIT/ML SOLN 3 units with 45g carbs TID INSULIN ASPART 44852504243 Active Natty Geronimo MD Active LEVOTHYROXINE SODIUM 88 MCG TABS 1 cap po daily LEVOTHYROXINE SODIUM 85818519173 Active Natty Geronimo MD Active LANTUS 100 UNIT/ML SOLN 12 units subq q hs INSULIN GLARGINE 87272779240 Active Natty Geronimo MD Active ATORVASTATIN CALCIUM 40 MG TABS ATORVASTATIN CALCIUM 29921552649 Active Natty Geronimo MD Active VENLAFAXINE HCL ER 37.5 MG [id number] 1 cap daily po VENLAFAXINE HCL ER 37.5 MG [id number]-KQB VENLAFAXINE HCL Inactive MECLIZINE HCL 25 MG TABS 1 tab 3 times a day po MECLIZINE HCL 25 MG TABS 801903 MECLIZINE HCL Inactive CIPRO 500 MG TABS 1 tab every 12 hours po CIPRO 500 MG TABS 248952 CIPROFLOXACIN HCL Inactive Advance Directives Directive Description [...] Catch Encounters Code Encounter Date Provider Facility CPT-74737 Level 3 Est. Patient 16:37:13 CDT Natty Geronimo MD [facility] CPT-56797 Level 3 Est. 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 Patient 15:51:31 CDT Natty Geronimo MD [facility] CPT-76859 Level 3 New Patient 16:51:22 CDT Natty Geronimo MD [facility] Procedures Code Procedure Name Date Entry Date Standard Description CPT-68600 Urine Dip (Floor Use Only) 16:37:13 CDT CPT-00478 Bladder Scan 16:37:13 CDT CPT-67893 Urine Dip (Floor Use Only) 18:07:26 COSMETOLOGY EDUCATOR CPT-69308 Bladder Scan 18:07:25 COSMETOLOGY EDUCATOR CPT-54739 Urine Dip (Floor Use Only) 15:51:31 CDT CPT-37200 Bladder Scan 15:51:31 CDT CPT-75460 Bladder Scan 16:51:22 CDT
--- OUTSIDE RECORDS SUMMARY | 2018-09-10 11:32 | XMS REPORT | Clinical Summary ---
Author Author Admin, VETO Organization [facility] Address Unknown Phone Unavailable Allergies, Adverse Reactions, [...] Instructions Start Date Stop Date Generic Name [facility] Status Provider Patient Instruction LISINOPRIL 10 MG TABS 1 tablet by mouth daily LISINOPRIL 92702245786 Active Natty Geronimo MD Active ASPIRIN 325 MG TAB Take one by mouth daily ASPIRIN 35614842311 Active Natty Geronimo MD Active MACROBID 100 MG CAPS 1 daily NITROFURANTOIN MONOHYD MACRO 07367716924 Active Natty Geronimo MD Active CIPRO 500 MG TABS 1 tab every 12 hours po CIPROFLOXACIN HCL 72379733872 No Longer Active Natty Geronimo MD Active MECLIZINE HCL 25 MG TABS 1 tab 3 times a day po MECLIZINE HCL 30316456576 No Longer Active Natty Geronimo MD Active VENLAFAXINE HCL ER 37.5 MG [id number] 1 cap daily po VENLAFAXINE HCL 65142354610 No Longer Active Natty Geronimo MD Active SERTRALINE HCL 50 MG TABS take 1/2 tabs daily po SERTRALINE HCL 74943812732 Active Natty Geronimo MD Active NOVOLOG 100 UNIT/ML SOLN 3 units with 45g carbs TID INSULIN ASPART 69420577899 Active Natty Geronimo MD Active LEVOTHYROXINE SODIUM 88 MCG TABS 1 cap po daily LEVOTHYROXINE SODIUM 05151872837 Active Natty Geronimo MD Active LANTUS 100 UNIT/ML SOLN 12 units subq q hs INSULIN GLARGINE 90737661155 Active Natty Geronimo MD Active ATORVASTATIN CALCIUM 40 MG TABS ATORVASTATIN CALCIUM 10691569492 Active Natty Geronimo MD Active VENLAFAXINE HCL ER 37.5 MG MW36K-GVR 1 cap daily po VENLAFAXINE HCL ER 37.5 MG YF40Y-WYT VENLAFAXINE HCL Inactive MECLIZINE HCL 25 MG TABS 1 tab 3 times a day po MECLIZINE HCL 25 MG TABS 874890 MECLIZINE HCL Inactive CIPRO 500 MG TABS 1 tab every 12 hours po CIPRO 500 MG TABS 714458 CIPROFLOXACIN HCL Inactive Advance Directives Directive Description Start Date PERMISSION TO SHARE Vital Signs Date Name Value Unit Range Description blood pressure, diastolic - 8462-4 63 mm[Hg] BP brown blood pressure, systolic - 8480-6 110 mm[Hg] BP sys pulse rate E&M - 8867-4 91 /min Heart rate temperature E&M 98.1 [degF] Body temperature weight E&M - 3141-9 150 [lb_av] Weight Measured blood pressure, diastolic - 8462-4 69 mm[Hg] [...] Unit Range Description Office Visit: 6 month followup - Chemistry RBC, urine, dipstick non-hemolyzed trace protein, total urine random trace mg/dL Office Visit: 6 month followup - Urinalysis glucose, urine, semiquantitative negative urinalysis, routine Clean Catch urine color yellow pH, urine, semiquantitative 5.0 appearance, urine clear leukocyte esterase, urine, by dipstick 1+ specific gravity, urine 1.015 nitrite, urine, semiquantitative negative ketones, urine, by test strip negative urobilinogen, urine, semiquantitative (dipstick) 0.2 bilirubin, urine negative Office Visit: Follow up dilation - Chemistry RBC, urine, dipstick negative protein, total urine random trace mg/dL Office Visit: Follow up dilation - Urinalysis pH, urine, semiquantitative 5 urine color yellow appearance, urine clear leukocyte esterase, urine, by dipstick trace nitrite, urine, semiquantitative negative urobilinogen, urine, semiquantitative (dipstick) 1 specific gravity, urine 1.010 ketones, urine, by test strip small (15) bilirubin, urine negative glucose, urine, semiquantitative trace Office Visit: Follow up recurrent UTIs - [...] Catch Encounters Code Encounter Date Provider Facility CPT-32652 Level 3 Est. Patient 16:37:13 CDT Natty Geronimo MD [facility] CPT-70797 Level 3 Est. 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 Patient 15:51:31 CDT Natty Geronimo MD [facility] CPT-82135 Level 3 New Patient 16:51:22 CDT Natty Geronimo MD [facility] Procedures Code Procedure Name Date Entry Date Standard Description CPT-96556 Urine Dip (Floor Use Only) 16:37:13 CDT CPT-56381 Bladder Scan 16:37:13 CDT CPT-65667 Urine Dip (Floor Use Only) 18:07:26 CULINARY CHEF CPT-96556 Bladder Scan 18:07:25 CULINARY CHEF CPT-07137 Urine Dip (Floor Use Only) 15:51:31 CDT CPT-25106 Bladder Scan 15:51:31 CDT CPT-81955 Bladder Scan 16:51:22 CDT
--- OUTSIDE RECORDS SUMMARY | 2018-09-10 11:32 | XMS REPORT | Clinical Summary ---
Author Author Admin, VETO Organization [facility] Address Unknown Phone Unavailable Allergies, Adverse Reactions, [...] Generic Name NDC Status Provider Patient Instruction LISINOPRIL 10 MG TABS 1 tablet by mouth daily LISINOPRIL 91472121016 Active Natty Geronimo MD Active ASPIRIN 325 MG TAB Take one by mouth daily ASPIRIN 85513503509 Active Natty Geronimo MD Active MACROBID 100 MG CAPS 1 daily NITROFURANTOIN MONOHYD MACRO 02442178040 Active Natty Geronimo MD Active CIPRO 500 MG TABS 1 tab every 12 hours po CIPROFLOXACIN HCL 21652823241 No Longer Active Natty Geronimo MD Active MECLIZINE HCL 25 MG TABS 1 tab 3 times a day po MECLIZINE HCL 06550620942 No Longer Active Natty Geronimo MD Active VENLAFAXINE HCL ER 37.5 MG SH35Y-CTL 1 cap daily po VENLAFAXINE HCL 53570194150 No Longer Active Natty Geronimo MD Active SERTRALINE HCL 50 MG TABS take 1/2 tabs daily po SERTRALINE HCL 25574452836 Active Natty Geronimo MD Active NOVOLOG 100 UNIT/ML SOLN 3 units with 45g carbs TID INSULIN ASPART 06924923647 Active Natty Geronimo MD Active LEVOTHYROXINE SODIUM 88 MCG TABS 1 cap po daily LEVOTHYROXINE SODIUM 79152818282 Active Natty Geronimo MD Active LANTUS 100 UNIT/ML SOLN 12 units subq q hs INSULIN GLARGINE 71346722447 Active Natty Geronimo MD Active ATORVASTATIN CALCIUM 40 MG TABS ATORVASTATIN CALCIUM 26318337757 Active Natty Geronimo MD Active VENLAFAXINE HCL ER 37.5 MG DL03F-AMD 1 cap daily po VENLAFAXINE HCL ER 37.5 MG WD80D-YQQ VENLAFAXINE HCL Inactive MECLIZINE HCL 25 MG TABS 1 tab 3 times a day po MECLIZINE HCL 25 MG TABS 882951 MECLIZINE HCL Inactive CIPRO 500 MG TABS 1 tab every 12 hours po CIPRO 500 MG TABS 325300 CIPROFLOXACIN HCL Inactive Advance Directives Directive Description Start Date PERMISSION TO SHARE Vital Signs Date Name Value Unit Range Description blood pressure, diastolic - 8462-4 68 mm[Hg] [...] E&M - 3141-9 147.2 [lb_av] Weight Measured blood pressure, diastolic - 8462-4 79 mm[Hg] BP brown blood pressure, systolic - 8480-6 176 mm[Hg] BP sys height E&M - 8302-2 63 [in_us] Bdy height pulse rate E&M - 8867-4 100 /min Heart rate weight E&M - 3141-9 148 [lb_av] Weight Measured blood pressure, diastolic - 8462-4 63 mm[Hg] BP brown blood pressure, systolic - 8480-6 110 mm[Hg] BP sys pulse rate E&M - 8867-4 91 /min Heart rate temperature E&M 98.1 [degF] Body temperature weight E&M - 3141-9 150 [lb_av] Weight Measured Diagnostic Results Date Name Value Unit Range Description Office Visit: 3mo f/u Macrobid - Chemistry RBC, urine, dipstick negative protein, total urine random negative mg/dL Office Visit: 3mo f/u Macrobid - Urinalysis ketones, urine, by test strip negative bilirubin, urine negative glucose, urine, semiquantitative 5+ pH, urine, semiquantitative 5 urinalysis, routine Clean Catch specific gravity, urine 1.020 urine color yellow appearance, urine clear leukocyte esterase, urine, by dipstick negative nitrite, urine, semiquantitative negative urobilinogen, urine, semiquantitative (dipstick) 0.2 protein, urine, semiquantitative (dipstick) negative Office Visit: 6 month followup - Chemistry [...] (dipstick) 0.2 bilirubin, urine negative Office Visit: Unable to urinate - [...] negative Encounters Code Encounter Date Provider Facility CPT-47061 Level 3 Est. Patient 16:32:50 CDT Natty Geronimo MD [facility] CPT-59890 Level 3 Est. Patient 08:03:52 CDT Natty Geronimo MD [facility] CPT-45175 Level 3 Est. 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 Patient 16:37:13 CDT Natty Geronimo MD [facility] CPT-39853 Level 3 Est. 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 Patient 15:51:31 CDLilibeth Geronimo MD [facility] CPT-10754 Level 3 New Patient 16:51:22 CDT Natty Geronimo MD [facility] Procedures Code Procedure Name Date Entry Date Standard Description CPT-92671 Dil F ureth int 16:32:51 CDT CPT-63126 Bladder Scan 16:32:51 CDT CPT-81153 Bladder Scan 08:03:52 CDT CPT-40354 Urine Dip (Floor Use Only) 14:45:28 CURBING STONECUTTER CPT-78328 Bladder Scan 14:45:28 CURBING STONECUTTER CPT-87918 Urine Dip (Floor Use Only) 16:37:13 CDT CPT-39980 Bladder Scan 16:37:13 CDT CPT-91118 Urine Dip (Floor Use Only) 18:07:26 CURBING STONECUTTER CPT-74234 Bladder Scan 18:07:25 CURBING STONECUTTER CPT-93541 Urine Dip (Floor Use Only) 15:51:31 CDT CPT-99478 Bladder Scan 15:51:31 CDT CPT-71162 Bladder Scan 16:51:22 CDT
--- OUTSIDE RECORDS SUMMARY | 2018-09-10 11:33 | XMS REPORT | Clinical Summary ---
Author Author Admin, VETO Organization [facility] Address Unknown Phone Unavailable Allergies, [...] Geronimo MD Family history of diabetes mellitus Medication List Medication Instructions Start Date Stop Date Generic Name NDC Status Provider Patient Instruction MACROBID 100 MG CAPS 1 daily NITROFURANTOIN MONOHYD MACRO 40127065541 Active Ying Masterson Active CIPRO 500 MG TABS 1 tab every 12 hours po CIPROFLOXACIN HCL 99751356744 No Longer Active Natty Geronimo MD Active MECLIZINE HCL 25 MG TABS 1 tab 3 times a day po MECLIZINE HCL 09502735846 No Longer Active Natty Geronimo MD Active VENLAFAXINE HCL ER 37.5 MG DH18R-KVM 1 cap daily po VENLAFAXINE HCL 73180316847 No Longer Active Natty Geronimo MD Active SERTRALINE HCL 50 MG TABS take 1/2 tabs daily po SERTRALINE HCL 07853798760 Active Natty Geronimo MD Active NOVOLOG 100 UNIT/ML SOLN 3 units with 45g carbs TID INSULIN ASPART 37261492159 Active Natty Geronimo MD Active LEVOTHYROXINE SODIUM 88 MCG TABS 1 cap po daily LEVOTHYROXINE SODIUM 29358573439 Active Natty Geronimo MD Active LANTUS 100 UNIT/ML SOLN 12 units subq q hs INSULIN GLARGINE 35799738509 Active Natty Geronimo MD Active ATORVASTATIN CALCIUM 40 MG TABS ATORVASTATIN CALCIUM 85746945346 Active Natty Geronimo MD Active VENLAFAXINE HCL ER 37.5 MG RP16L-MYO 1 cap daily po VENLAFAXINE HCL ER 37.5 MG RU06B-ETU VENLAFAXINE HCL Inactive MECLIZINE HCL 25 MG TABS 1 tab 3 times a day po MECLIZINE HCL 25 MG TABS 856902 MECLIZINE HCL Inactive CIPRO 500 MG TABS 1 tab every 12 hours po CIPRO 500 MG TABS 367960 CIPROFLOXACIN HCL Inactive Advance Directives Directive Description Start Date PERMISSION TO [facility]ARE Vital Signs Date Name Value Unit Range Description blood pressure, diastolic 71 mm[Hg] BP brown blood pressure, systolic 140 mm[Hg] BP sys pulse rate E&M 97 /min Heart rate temperature E&M 96.8 [degF] Body temperature weight E&M 144 [lb_av] Weight Measured blood pressure, diastolic 70 mm[Hg] BP brown blood pressure, systolic 128 mm[Hg] BP sys height E&M 52 [in_us] Bdy height pulse rate E&M 97 /min Heart rate temperature E&M 97.5 [degF] Body temperature weight E&M 144 [lb_av] Weight Measured Diagnostic Results Date Name Value Unit Range Description Office Visit: CN chronic UTI - Chemistry RBC, urine, dipstick negative protein, total urine random negative mg/dL Office Visit: CN chronic UTI - Urinalysis ketones, urine, by test strip negative bilirubin, urine negative glucose, urine, semiquantitative 2+ pH, urine, semiquantitative 5 specific gravity, urine 1.010 urinalysis, routine Clean Catch urine color yellow appearance, urine clear leukocyte esterase, urine, by dipstick negative nitrite, urine, semiquantitative negative urobilinogen, urine, semiquantitative (dipstick) 0.2 protein, urine, semiquantitative (dipstick) negative Office Visit: Follow up recurrent UTIs - Chemistry RBC, urine, dipstick negative protein, total urine random negative mg/dL Office Visit: Follow up recurrent UTIs - Urinalysis urinalysis, routine Clean Catch ketones, urine, by test strip negative bilirubin, urine negative glucose, urine, semiquantitative negative pH, urine, semiquantitative 7.5 specific gravity, urine 1.000 urine color yellow appearance, urine clear leukocyte esterase, urine, by dipstick negative nitrite, urine, semiquantitative negative urobilinogen, urine, semiquantitative (dipstick) 0.2 protein, urine, semiquantitative (dipstick) negative Encounters Code Encounter Date Provider Facility CPT-86663 Level 3 Est. Patient 15:51:31 CDT Natty Geronimo MD [facility] CPT-16662 Level 3 New Patient 16:51:22 CDT Natty Geronimo MD [facility] Procedures Code Procedure Name Date Entry Date Standard Description CPT-08562 Urine Dip (Floor Use Only) 15:51:31 CDT CPT-39469 Bladder Scan 15:51:31 CDT CPT-21571 Bladder Scan 16:51:22 CDT
--- OUTSIDE RECORDS SUMMARY | 2018-09-10 11:33 | XMS REPORT | Clinical Summary ---
[...] MG CAPS 1 daily NITROFURANTOIN MONOHYD MACRO 86728125933 Active Ying Masterson Active CIPRO 500 MG TABS 1 tab every 12 hours po CIPROFLOXACIN HCL 61876558929 No Longer Active Natty Geronimo MD Active MECLIZINE HCL 25 MG TABS 1 tab 3 times a day po MECLIZINE HCL 54446626895 No Longer Active Natty Geronimo MD Active VENLAFAXINE HCL ER 37.5 MG LS97R-MLH 1 cap daily po VENLAFAXINE HCL 42085335580 No Longer Active Natty Geronimo MD Active SERTRALINE HCL 50 MG TABS take 1/2 tabs daily po SERTRALINE HCL 38417888974 Active Natty Geronimo MD Active NOVOLOG 100 UNIT/ML SOLN 3 units with 45g carbs TID INSULIN ASPART 29518932580 Active Natty Geronimo MD Active LEVOTHYROXINE SODIUM 88 MCG TABS 1 cap po daily LEVOTHYROXINE SODIUM 50436752701 Active Natty Geronimo MD Active LANTUS 100 UNIT/ML SOLN 12 units subq q hs INSULIN GLARGINE 00402876522 Active Natty Geronimo MD Active ATORVASTATIN CALCIUM 40 MG TABS ATORVASTATIN CALCIUM 07778236881 Active Natty Geronimo MD Active VENLAFAXINE HCL ER 37.5 MG YU14Q-MCA 1 cap daily po VENLAFAXINE HCL ER 37.5 MG UX16G-TSO VENLAFAXINE HCL Inactive MECLIZINE HCL 25 MG TABS 1 tab 3 times a day po MECLIZINE HCL 25 MG TABS 789246 MECLIZINE HCL Inactive CIPRO 500 MG TABS 1 tab every 12 hours po CIPRO 500 MG TABS 633959 CIPROFLOXACIN HCL Inactive Advance Directives Directive Description [...] negative Encounters Code Encounter Date Provider Facility CPT-70042 Level 3 Est. Patient 15:51:31 CDT Natty Geronimo MD [facility] CPT-90608 Level 3 New Patient 16:51:22 CDT Natty Geronimo MD [facility] Procedures Code Procedure Name Date Entry Date Standard Description CPT-36225 Urine Dip (Floor Use Only) 15:51:31 CDT CPT-69160 Bladder Scan 15:51:31 CDT CPT-42200 Bladder Scan 16:51:22 CDT
--- OUTSIDE RECORDS SUMMARY | 2018-09-10 11:33 | XMS REPORT | Clinical Summary ---
Author Author Admin, VETO Organization [facility] Address Unknown Phone Allergies, Adverse Reactions, Alerts Allergy Name Reaction Description Start Date Severity Status Provider SULFUR Critical Active Natty Geronimo MD Conditions or Problems Problem Name Problem Code Onset Date Status Entry Date Provider Comment Standard Description Annotate U T I-Recurrent 599.0 Active Natty Geronimo MD Urinary tract infection, site not specified Medication List Medication Instructions Start Date Stop Date Generic Name NDC Status Provider Patient Instruction MACROBID 100 MG CAPS 1 daily NITROFURANTOIN MONOHYD MACRO 21341707244 Active Ying Masterson Active CIPRO 500 MG TABS 1 tab every 12 hours po CIPROFLOXACIN HCL 71994540157 No Longer Active Natty Geronimo MD Active MECLIZINE HCL 25 MG TABS 1 tab 3 times a day po MECLIZINE HCL 53545052504 No Longer Active Natty Geronimo MD Active VENLAFAXINE HCL ER 37.5 MG [id number]-KHD 1 cap daily po VENLAFAXINE HCL 50330083661 No Longer Active Natty Geronimo MD Active SERTRALINE HCL 50 MG TABS take 1/2 tabs daily po SERTRALINE HCL 66183021670 Active Natty Geronimo MD Active NOVOLOG 100 UNIT/ML SOLN 3 units with 45g carbs TID INSULIN ASPART 16444159630 Active Natty Geronimo MD Active LEVOTHYROXINE SODIUM 88 MCG TABS 1 cap po daily LEVOTHYROXINE SODIUM 22525374950 Active Natty Geronimo MD Active LANTUS 100 UNIT/ML SOLN 12 units subq q hs INSULIN GLARGINE 53853598588 Active Natty Geronimo MD Active ATORVASTATIN CALCIUM 40 MG TABS ATORVASTATIN CALCIUM 40266304346 Active Natty Geronimo MD Active VENLAFAXINE HCL ER 37.5 MG RW64R-AVT 1 cap daily po VENLAFAXINE HCL ER 37.5 MG OI47Z-TCP VENLAFAXINE HCL Inactive MECLIZINE HCL 25 MG TABS 1 tab 3 times a day po MECLIZINE HCL 25 MG TABS 624127 MECLIZINE HCL Inactive CIPRO 500 MG TABS 1 tab every 12 hours po CIPRO 500 MG TABS 441152 CIPROFLOXACIN HCL Inactive Advance Directives Directive Description Start Date PERMISSION TO SHARE Vital Signs Date Name Value Unit Range Description blood pressure, diastolic - 8462-4 70 mm[Hg] BP brown blood pressure, systolic - 8480-6 128 mm[Hg] BP sys height E&M - 8302-2 52 [in_us] Bdy height pulse rate E&M - 8867-4 97 /min Heart rate temperature E&M 97.5 [degF] Body temperature weight E&M - 3141-9 [...] negative Encounters Code Encounter Date Provider Facility CPT-06494 Level 3 New Patient 16:51:22 CDT Natty Geronimo MD [facility] Procedures Code Procedure Name Date Entry Date Standard Description CPT-97203 Bladder Scan 16:51:22 CDT
--- OUTSIDE RECORDS SUMMARY | 2018-09-10 11:33 | XMS REPORT | Clinical Summary ---
Author Author Admin, VETO Organization [facility] Address Unknown Phone Unavailable Allergies, Adverse [...] Instructions Start Date Stop Date Generic Name [facility] Status Provider Patient Instruction LISINOPRIL 10 MG TABS 1 tablet by mouth daily LISINOPRIL 06360262689 Active Natty Geronimo MD Active ASPIRIN 325 MG TAB Take one by mouth daily ASPIRIN 65920422908 Active Natty Geronimo MD Active MACROBID 100 MG CAPS 1 daily NITROFURANTOIN MONOHYD MACRO 39261290053 Active Natty Geronimo MD Active CIPRO 500 MG TABS 1 tab every 12 hours po CIPROFLOXACIN HCL 90356848932 No Longer Active Natty Geronimo MD Active MECLIZINE HCL 25 MG TABS 1 tab 3 times a day po MECLIZINE HCL 71593951622 No Longer Active Natty Geronimo MD Active VENLAFAXINE HCL ER 37.5 MG AL14T-SXD 1 cap daily po VENLAFAXINE HCL 41170143485 No Longer Active Natty Geronimo MD Active SERTRALINE HCL 50 MG TABS take 1/2 tabs daily po SERTRALINE HCL 59275711421 Active Natty Geronimo MD Active NOVOLOG 100 UNIT/ML SOLN 3 units with 45g carbs TID INSULIN ASPART 93986977215 Active Natty Geronimo MD Active LEVOTHYROXINE SODIUM 88 MCG TABS 1 cap po daily LEVOTHYROXINE SODIUM 80489628574 Active Natty Geronimo MD Active LANTUS 100 UNIT/ML SOLN 12 units subq q hs INSULIN GLARGINE 27188384038 Active Natty Geronimo MD Active ATORVASTATIN CALCIUM 40 MG TABS ATORVASTATIN CALCIUM 46571789557 Active Natty Geronimo MD Active VENLAFAXINE HCL ER 37.5 MG IJ28C-BRH 1 cap daily po VENLAFAXINE HCL ER 37.5 MG KG48V-FNO VENLAFAXINE HCL Inactive MECLIZINE HCL 25 MG TABS 1 tab 3 times a day po MECLIZINE HCL 25 MG TABS 908494 MECLIZINE HCL Inactive CIPRO 500 MG TABS 1 tab every 12 hours po CIPRO 500 MG TABS 664545 CIPROFLOXACIN HCL Inactive Advance Directives Directive Description Start Date PERMISSION TO SHARE Vital Signs Date Name Value Unit Range Description blood pressure, diastolic - 8462-4 82 mm[Hg] [...] urine, semiquantitative (dipstick) 0.2 bilirubin, urine negative Encounters Code Encounter Date Provider Facility CPT-64569 Level 3 Est. Patient 08:03:52 CDT Natty Geronimo MD [facility] CPT-82140 Level 3 Est. 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 Patient 16:37:13 CDT Natty Geronimo MD [facility] CPT-14120 Level 3 Est. 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 Patient 15:51:31 CDT Natty Geronimo MD [facility] CPT-73006 Level 3 New Patient 16:51:22 CDT Natty Geronimo MD [facility] Procedures Code Procedure Name Date Entry Date Standard Description CPT-39735 Bladder Scan 08:03:52 CDT CPT-44923 Urine Dip (Floor Use Only) 14:45:28 FUSE SPOOLER CPT-91471 Bladder Scan 14:45:28 FUSE SPOOLER CPT-46328 Urine Dip (Floor Use Only) 16:37:13 CDT CPT-87832 Bladder Scan 16:37:13 CDT CPT-81929 Urine Dip (Floor Use Only) 18:07:26 FUSE SPOOLER CPT-67779 Bladder Scan 18:07:25 FUSE SPOOLER CPT-08523 Urine Dip (Floor Use Only) 15:51:31 CDT CPT-93140 Bladder Scan 15:51:31 CDT CPT-22874 Bladder Scan 16:51:22 CDT
--- OUTSIDE RECORDS SUMMARY | 2018-09-10 11:33 | XMS REPORT | Clinical Summary ---
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 Natty Geronimo MD Urinary tract infection, site not specified Medication List Medication Instructions Start Date Stop Date Generic Name NDC Status Provider Patient Instruction MACROBID 100 MG CAPS 1 daily NITROFURANTOIN MONOHYD MACRO 89542350890 Active Ying Masterson Active CIPRO 500 MG TABS 1 tab every 12 hours po CIPROFLOXACIN HCL 98905782613 No Longer Active Natty Geronimo MD Active MECLIZINE HCL 25 MG TABS 1 tab 3 times a day po MECLIZINE HCL 38156799095 No Longer Active Natty Geronimo MD Active VENLAFAXINE HCL ER 37.5 MG ZR62R-ZLC 1 cap daily po VENLAFAXINE HCL 18929656237 No Longer Active Natty Geronimo MD Active SERTRALINE HCL 50 MG TABS take 1/2 tabs daily po SERTRALINE HCL 41248126670 Active Natty Geronimo MD Active NOVOLOG 100 UNIT/ML SOLN 3 units with 45g carbs TID INSULIN ASPART 06879657297 Active Natty Geronimo MD Active LEVOTHYROXINE SODIUM 88 MCG TABS 1 cap po daily LEVOTHYROXINE SODIUM 14767548147 Active Natty Geronimo MD Active LANTUS 100 UNIT/ML SOLN 12 units subq q hs INSULIN GLARGINE 33838208620 Active Natty Geronimo MD Active ATORVASTATIN CALCIUM 40 MG TABS ATORVASTATIN CALCIUM 01923155130 Active Natty Geronimo MD Active VENLAFAXINE HCL ER 37.5 MG BL74H-EQT 1 cap daily po VENLAFAXINE HCL ER 37.5 MG ID68N-BLY VENLAFAXINE HCL Inactive MECLIZINE HCL 25 MG TABS 1 tab 3 times a day po MECLIZINE HCL 25 MG TABS 646457 MECLIZINE HCL Inactive CIPRO 500 MG TABS 1 tab every 12 hours po CIPRO 500 MG TABS 107364 CIPROFLOXACIN HCL Inactive Advance Directives Directive Description [...] negative Encounters Code Encounter Date Provider Facility CPT-18277 Level 3 New Patient 16:51:22 CDT Natty Geronimo MD [facility] Procedures Code Procedure Name Date Entry Date Standard Description CPT-06653 Bladder Scan 16:51:22 CDT
--- OUTSIDE RECORDS SUMMARY | 2018-09-10 11:34 | XMS REPORT | Clinical Summary ---
Author Author Admin, VETO Organization [facility] Address Unknown Phone Allergies, Adverse Reactions, [...] MG CAPS 1 daily NITROFURANTOIN MONOHYD MACRO 17262863176 Active Ying Masterson Active CIPRO 500 MG TABS 1 tab every 12 hours po CIPROFLOXACIN HCL 52724761595 No Longer Active Natty Geronimo MD Active MECLIZINE HCL 25 MG TABS 1 tab 3 times a day po MECLIZINE HCL 40184934698 No Longer Active Natty Geronimo MD Active VENLAFAXINE HCL ER 37.5 MG XY25E-RWZ 1 cap daily po VENLAFAXINE HCL 86145904295 No Longer Active Natty Geronimo MD Active SERTRALINE HCL 50 MG TABS take 1/2 tabs daily po SERTRALINE HCL 77771586624 Active Natty Geronimo MD Active NOVOLOG 100 UNIT/ML SOLN 3 units with 45g carbs TID INSULIN ASPART 12562442335 Active Natty Geronimo MD Active LEVOTHYROXINE SODIUM 88 MCG TABS 1 cap po daily LEVOTHYROXINE SODIUM 05065101165 Active Natty Geronimo MD Active LANTUS 100 UNIT/ML SOLN 12 units subq q hs INSULIN GLARGINE 50875323245 Active Natty Geronimo MD Active ATORVASTATIN CALCIUM 40 MG TABS ATORVASTATIN CALCIUM 89660717707 Active Natty Geronimo MD Active VENLAFAXINE HCL ER 37.5 MG XK98S-TVW 1 cap daily po VENLAFAXINE HCL ER 37.5 MG EZ96Q-YID VENLAFAXINE HCL Inactive MECLIZINE HCL 25 MG TABS 1 tab 3 times a day po MECLIZINE HCL 25 MG TABS 335415 MECLIZINE HCL Inactive CIPRO 500 MG TABS 1 tab every 12 hours po CIPRO 500 MG TABS 951452 CIPROFLOXACIN HCL Inactive Advance Directives Directive Description [...] negative Encounters Code Encounter Date Provider Facility CPT-60313 Level 3 New Patient 16:51:22 CDT Natty Geronimo MD [facility] Procedures Code Procedure Name Date Entry Date Standard Description CPT-75479 Bladder Scan 16:51:22 CDT
--- OUTSIDE RECORDS SUMMARY | 2018-09-10 11:34 | XMS REPORT | Clinical Summary ---
Author Author Admin, VETO Organization [facility] Address Unknown Phone Allergies, Adverse Reactions, [...] Generic Name NDC Status Provider Patient Instruction CIPRO 500 MG TABS 1 tab every 12 hours po CIPROFLOXACIN HCL 64369376318 No Longer Active Natty Geronimo MD Active MECLIZINE HCL 25 MG TABS 1 tab 3 times a day po MECLIZINE HCL 62203122961 No Longer Active Natty Geronimo MD Active VENLAFAXINE HCL ER 37.5 MG RX12Y-VOX 1 cap daily po VENLAFAXINE HCL 81284295893 No Longer Active Natty Geronimo MD Active SERTRALINE HCL 50 MG TABS take 1/2 tabs daily po SERTRALINE HCL 71743768169 Active Natty Geronimo MD Active NOVOLOG 100 UNIT/ML SOLN 3 units with 45g carbs TID INSULIN ASPART 51133844077 Active Natty Geronimo MD Active LEVOTHYROXINE SODIUM 88 MCG TABS 1 cap po daily LEVOTHYROXINE SODIUM 16127502138 Active Natty Geronimo MD Active LANTUS 100 UNIT/ML SOLN 12 units subq q hs INSULIN GLARGINE 80829704474 Active Natty Geronimo MD Active ATORVASTATIN CALCIUM 40 MG TABS ATORVASTATIN CALCIUM 48584775694 Active Natty Geronimo MD Active VENLAFAXINE HCL ER 37.5 MG PS62Z-WMH 1 cap daily po VENLAFAXINE HCL ER 37.5 MG GQ01H-RIC VENLAFAXINE HCL Inactive MECLIZINE HCL 25 MG TABS 1 tab 3 times a day po MECLIZINE HCL 25 MG TABS 194262 MECLIZINE HCL Inactive CIPRO 500 MG TABS 1 tab every 12 hours po CIPRO 500 MG TABS 297710 CIPROFLOXACIN HCL Inactive Advance Directives Directive Description Start Date PERMISSION TO SHARE Encounters Code Encounter Date Provider Facility CPT-47511 Level 3 New Patient 16:51:22 CDT Natty Geronimo MD [facility] Procedures Code Procedure Name Date Entry Date Standard Description CPT-01721 Bladder Scan 16:51:22 CDT
--- OUTSIDE RECORDS SUMMARY | 2018-09-10 11:34 | XMS REPORT | Clinical Summary ---
Author Author Admin, VETO Organization [facility] Address Unknown Phone Allergies, Adverse Reactions, [...] MG CAPS 1 daily NITROFURANTOIN MONOHYD MACRO 81794197481 Active Ying Masterson Active CIPRO 500 MG TABS 1 tab every 12 hours po CIPROFLOXACIN HCL 65484064450 No Longer Active Natty Geronimo MD Active MECLIZINE HCL 25 MG TABS 1 tab 3 times a day po MECLIZINE HCL 08927927636 No Longer Active Natty Geronimo MD Active VENLAFAXINE HCL ER 37.5 MG QW93H-RCN 1 cap daily po VENLAFAXINE HCL 24833264153 No Longer Active Natty Geronimo MD Active SERTRALINE HCL 50 MG TABS take 1/2 tabs daily po SERTRALINE HCL 95071196642 Active Natty Geronimo MD Active NOVOLOG 100 UNIT/ML SOLN 3 units with 45g carbs TID INSULIN ASPART 79982426165 Active Natty Geronimo MD Active LEVOTHYROXINE SODIUM 88 MCG TABS 1 cap po daily LEVOTHYROXINE SODIUM 46154103862 Active Natty Geronimo MD Active LANTUS 100 UNIT/ML SOLN 12 units subq q hs INSULIN GLARGINE 37805540267 Active Natty Geronimo MD Active ATORVASTATIN CALCIUM 40 MG TABS ATORVASTATIN CALCIUM 86549085459 Active Natty Geronimo MD Active VENLAFAXINE HCL ER 37.5 MG DM04B-IKB 1 cap daily po VENLAFAXINE HCL ER 37.5 MG OB06J-FII VENLAFAXINE HCL Inactive MECLIZINE HCL 25 MG TABS 1 tab 3 times a day po MECLIZINE HCL 25 MG TABS 937801 MECLIZINE HCL Inactive CIPRO 500 MG TABS 1 tab every 12 hours po CIPRO 500 MG TABS 438976 CIPROFLOXACIN HCL Inactive Advance Directives Directive Description [...] negative Encounters Code Encounter Date Provider Facility CPT-66616 Level 3 New Patient 16:51:22 CDT Natty Geronimo MD [facility] Procedures Code Procedure Name Date Entry Date Standard Description CPT-56520 Bladder Scan 16:51:22 CDT
--- OUTSIDE RECORDS SUMMARY | 2018-09-10 11:34 | XMS REPORT | Clinical Summary ---
Author Author Admin, VETO Organization [facility] Address Unknown Phone Unavailable Allergies, [...] MG CAPS 1 daily NITROFURANTOIN MONOHYD MACRO 66861026198 Active Ying Masterson Active CIPRO 500 MG TABS 1 tab every 12 hours po CIPROFLOXACIN HCL 24527752703 No Longer Active Natty Geronimo MD Active MECLIZINE HCL 25 MG TABS 1 tab 3 times a day po MECLIZINE HCL 58992641126 No Longer Active Natty Geronimo MD Active VENLAFAXINE HCL ER 37.5 MG AT33I-EOO 1 cap daily po VENLAFAXINE HCL 05952666892 No Longer Active Natty Geronimo MD Active SERTRALINE HCL 50 MG TABS take 1/2 tabs daily po SERTRALINE HCL 55785651278 Active Natty Geronimo MD Active NOVOLOG 100 UNIT/ML SOLN 3 units with 45g carbs TID INSULIN ASPART 44651118907 Active Natty Geronimo MD Active LEVOTHYROXINE SODIUM 88 MCG TABS 1 cap po daily LEVOTHYROXINE SODIUM 03301971131 Active Natty Geronimo MD Active LANTUS 100 UNIT/ML SOLN 12 units subq q hs INSULIN GLARGINE 74683585194 Active Natty Geronimo MD Active ATORVASTATIN CALCIUM 40 MG TABS ATORVASTATIN CALCIUM 64762260083 Active Natty Geronimo MD Active VENLAFAXINE HCL ER 37.5 MG TN28N-UKT 1 cap daily po VENLAFAXINE HCL ER 37.5 MG TP43O-TZL VENLAFAXINE HCL Inactive MECLIZINE HCL 25 MG TABS 1 tab 3 times a day po MECLIZINE HCL 25 MG TABS 779658 MECLIZINE HCL Inactive CIPRO 500 MG TABS 1 tab every 12 hours po CIPRO 500 MG TABS 320399 CIPROFLOXACIN HCL Inactive Advance Directives Directive Description [...] negative Encounters Code Encounter Date Provider Facility CPT-10977 Level 3 Est. Patient 15:51:31 CDT Natty Geronimo MD [facility] CPT-82146 Level 3 New Patient 16:51:22 CDT Natty Geronimo MD [facility] Procedures Code Procedure Name Date Entry Date Standard Description CPT-11227 Urine Dip (Floor Use Only) 15:51:31 CDT CPT-00588 Bladder Scan 15:51:31 CDT CPT-43692 Bladder Scan 16:51:22 CDT
--- OUTSIDE RECORDS SUMMARY | 2018-09-10 11:34 | XMS REPORT | Clinical Summary ---
Author Author Admin, VETO Organization [facility] Address Unknown Phone Allergies, Adverse [...] MG CAPS 1 daily NITROFURANTOIN MONOHYD MACRO 54148152719 Active Ying Masterson Active CIPRO 500 MG TABS 1 tab every 12 hours po CIPROFLOXACIN HCL 82005702927 No Longer Active Natty Geronimo MD Active MECLIZINE HCL 25 MG TABS 1 tab 3 times a day po MECLIZINE HCL 24602865325 No Longer Active Natty Geronimo MD Active VENLAFAXINE HCL ER 37.5 MG PG68V-RZG 1 cap daily po VENLAFAXINE HCL 30093560456 No Longer Active Natty Geronimo MD Active SERTRALINE HCL 50 MG TABS take 1/2 tabs daily po SERTRALINE HCL 88049017466 Active Natty Geronimo MD Active NOVOLOG 100 UNIT/ML SOLN 3 units with 45g carbs TID INSULIN ASPART 83602431882 Active Natty Geronimo MD Active LEVOTHYROXINE SODIUM 88 MCG TABS 1 cap po daily LEVOTHYROXINE SODIUM 02214937580 Active Natty Geronimo MD Active LANTUS 100 UNIT/ML SOLN 12 units subq q hs INSULIN GLARGINE 47933311350 Active Natty Geronimo MD Active ATORVASTATIN CALCIUM 40 MG TABS ATORVASTATIN CALCIUM 94965216130 Active Natty Geronimo MD Active VENLAFAXINE HCL ER 37.5 MG TL71B-LYK 1 cap daily po VENLAFAXINE HCL ER 37.5 MG OU42H-CHI VENLAFAXINE HCL Inactive MECLIZINE HCL 25 MG TABS 1 tab 3 times a day po MECLIZINE HCL 25 MG TABS 605803 MECLIZINE HCL Inactive CIPRO 500 MG TABS 1 tab every 12 hours po CIPRO 500 MG TABS 895307 CIPROFLOXACIN HCL Inactive Advance Directives Directive Description [...] negative Encounters Code Encounter Date Provider Facility CPT-94336 Level 3 New Patient 16:51:22 CDT Natty Geronimo MD [facility] Procedures Code Procedure Name Date Entry Date Standard Description CPT-51508 Bladder Scan 16:51:22 CDT
--- OUTSIDE RECORDS SUMMARY | 2018-09-10 11:34 | XMS REPORT | Clinical Summary ---
Author Author Admin, VETO Organization [facility] Address Unknown Phone Allergies, Adverse [...] MG CAPS 1 daily NITROFURANTOIN MONOHYD MACRO 19322398286 Active Ying Masterson Active CIPRO 500 MG TABS 1 tab every 12 hours po CIPROFLOXACIN HCL 06692070151 No Longer Active Natty Geronimo MD Active MECLIZINE HCL 25 MG TABS 1 tab 3 times a day po MECLIZINE HCL 23893363510 No Longer Active Natty Geronimo MD Active VENLAFAXINE HCL ER 37.5 MG FZ02S-TYD 1 cap daily po VENLAFAXINE HCL 26152762211 No Longer Active Natty Geronimo MD Active SERTRALINE HCL 50 MG TABS take 1/2 tabs daily po SERTRALINE HCL 08281073683 Active Natty Geronimo MD Active NOVOLOG 100 UNIT/ML SOLN 3 units with 45g carbs TID INSULIN ASPART 04938971603 Active Natty Geronimo MD Active LEVOTHYROXINE SODIUM 88 MCG TABS 1 cap po daily LEVOTHYROXINE SODIUM 60701993212 Active Natty Geronimo MD Active LANTUS 100 UNIT/ML SOLN 12 units subq q hs INSULIN GLARGINE 97666006604 Active Natyt Geronimo MD Active ATORVASTATIN CALCIUM 40 MG TABS ATORVASTATIN CALCIUM 86028084034 Active Natty Geronimo MD Active VENLAFAXINE HCL ER 37.5 MG IR23F-QYN 1 cap daily po VENLAFAXINE HCL ER 37.5 MG EQ25V-UPA VENLAFAXINE HCL Inactive MECLIZINE HCL 25 MG TABS 1 tab 3 times a day po MECLIZINE HCL 25 MG TABS 135158 MECLIZINE HCL Inactive CIPRO 500 MG TABS 1 tab every 12 hours po CIPRO 500 MG TABS 162793 CIPROFLOXACIN HCL Inactive Advance Directives Directive Description [...] negative Encounters Code Encounter Date Provider Facility CPT-83149 Level 3 New Patient 16:51:22 CDT Natty Geronimo MD [facility] Procedures Code Procedure Name Date Entry Date Standard Description CPT-45022 Bladder Scan 16:51:22 CDT
--- OUTSIDE RECORDS SUMMARY | 2018-09-10 11:34 | XMS REPORT | Clinical Summary ---
Author Author Admin, VETO Organization [facility] Address Unknown Phone Allergies, Adverse Reactions, [...] MG CAPS 1 daily NITROFURANTOIN MONOHYD MACRO 19288454593 Active Ying Masterson Active CIPRO 500 MG TABS 1 tab every 12 hours po CIPROFLOXACIN HCL 42826080085 No Longer Active Natty Geronimo MD Active MECLIZINE HCL 25 MG TABS 1 tab 3 times a day po MECLIZINE HCL 10126778341 No Longer Active Natty Geronimo MD Active VENLAFAXINE HCL ER 37.5 MG SP37Z-EPI 1 cap daily po VENLAFAXINE HCL 34894818203 No Longer Active Natty Geronimo MD Active SERTRALINE HCL 50 MG TABS take 1/2 tabs daily po SERTRALINE HCL 55343633550 Active Natty Geronimo MD Active NOVOLOG 100 UNIT/ML SOLN 3 units with 45g carbs TID INSULIN ASPART 86094269411 Active Natty Geronimo MD Active LEVOTHYROXINE SODIUM 88 MCG TABS 1 cap po daily LEVOTHYROXINE SODIUM 07625680737 Active Natty Geronimo MD Active LANTUS 100 UNIT/ML SOLN 12 units subq q hs INSULIN GLARGINE 22509275920 Active Natty Geronimo MD Active ATORVASTATIN CALCIUM 40 MG TABS ATORVASTATIN CALCIUM 38720792682 Active Natty Geronimo MD Active VENLAFAXINE HCL ER 37.5 MG YX83P-BEL 1 cap daily po VENLAFAXINE HCL ER 37.5 MG EA29Q-DOC VENLAFAXINE HCL Inactive MECLIZINE HCL 25 MG TABS 1 tab 3 times a day po MECLIZINE HCL 25 MG TABS 428202 MECLIZINE HCL Inactive CIPRO 500 MG TABS 1 tab every 12 hours po CIPRO 500 MG TABS 136745 CIPROFLOXACIN HCL Inactive Advance Directives Directive Description [...] negative Encounters Code Encounter Date Provider Facility CPT-98643 Level 3 New Patient 16:51:22 CDT Natty Geronimo MD [facility] Procedures Code Procedure Name Date Entry Date Standard Description CPT-78712 Bladder Scan 16:51:22 CDT
--- OUTSIDE RECORDS SUMMARY | 2018-09-10 11:35 | XMS REPORT | Clinical Summary ---
Author Author Admin, VETO Organization [facility] Address Unknown Phone Unavailable Allergies, [...] Instructions Start Date Stop Date Generic Name ND Status Provider Patient Instruction MACROBID 100 MG CAPS 1 daily NITROFURANTOIN MONOHYD MACRO 92885092826 Active Natty Geronimo MD Active CIPRO 500 MG TABS 1 tab every 12 hours po CIPROFLOXACIN HCL 31601766526 No Longer Active Natty Geronimo MD Active MECLIZINE HCL 25 MG TABS 1 tab 3 times a day po MECLIZINE HCL 55421216403 No Longer Active Natty Geronimo MD Active VENLAFAXINE HCL ER 37.5 MG FX82L-MYJ 1 cap daily po VENLAFAXINE HCL 87393504187 No Longer Active Natty Geronimo MD Active SERTRALINE HCL 50 MG TABS take 1/2 tabs daily po SERTRALINE HCL 06527010179 Active Natty Geronimo MD Active NOVOLOG 100 UNIT/ML SOLN 3 units with 45g carbs TID INSULIN ASPART 06181233605 Active Natty Geronimo MD Active LEVOTHYROXINE SODIUM 88 MCG TABS 1 cap po daily LEVOTHYROXINE SODIUM 47388699555 Active Natty Geronimo MD Active LANTUS 100 UNIT/ML SOLN 12 units subq q hs INSULIN GLARGINE 90805468728 Active Natty Geronimo MD Active ATORVASTATIN CALCIUM 40 MG TABS ATORVASTATIN CALCIUM 10373428054 Active Natty Geronimo MD Active VENLAFAXINE HCL ER 37.5 MG SI31V-AYV 1 cap daily po VENLAFAXINE HCL ER 37.5 MG ZU19K-RHG VENLAFAXINE HCL Inactive MECLIZINE HCL 25 MG TABS 1 tab 3 times a day po MECLIZINE HCL 25 MG TABS 821638 MECLIZINE HCL Inactive CIPRO 500 MG TABS 1 tab every 12 hours po CIPRO 500 MG TABS 847626 CIPROFLOXACIN HCL Inactive Advance Directives Directive Description [...] E&M - 3141-9 144 [lb_av] Weight Measured blood pressure, diastolic - 8462-4 70 mm[Hg] [...] semiquantitative (dipstick) negative Office Visit: Follow up dilation - [...] Catch Encounters Code Encounter Date Provider Facility CPT-03440 Level 3 Est. 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 Patient 15:51:31 CDT Natty Geronimo MD [facility] CPT-61887 Level 3 New Patient 16:51:22 CDT Natty Geronimo MD [facility] Procedures Code Procedure Name Date Entry Date Standard Description CPT-71120 Urine Dip (Floor Use Only) 18:07:26 CANDY POLISHER CPT-13229 Bladder Scan 18:07:25 CANDY POLISHER CPT-58298 Urine Dip (Floor Use Only) 15:51:31 CDT CPT-42901 Bladder Scan 15:51:31 CDT CPT-10457 Bladder Scan 16:51:22 CDT
--- OUTSIDE RECORDS SUMMARY | 2018-09-10 11:36 | XMS REPORT | Continuity of Care Document ---
Author Organization Unknown Address Unknown Allergies Active Description Code Type Severity Reaction Onset Reported/Identified Relationship to Patient Clinical Status Yes Sulfa (Sulfonamide Antibiotics) 491 Drug Allergy Severe hallucinations Yes Sulfa (Sulfonamide Antibiotics) 491 Drug Allergy N/A N/A Confirmed or Verified Yes AMOXICILLIN MODERATE MODERATE Yes AMOXICILLIN MODERATE OTHER Yes DILAUDID MODERATE MODERATE Yes DILAUDID MODERATE OTHER Yes MORPHINE MODERATE MODERATE Yes MORPHINE MODERATE OTHER Yes SULFA (SULFONAMIDE ANTIBIOTICS) MODERATE MODERATE Yes SULFA (SULFONAMIDE ANTIBIOTICS) MODERATE OTHER Yes amoxicillin Drug Allergy Unknown N/A 12/23/2017 Yes Bactrim DS Drug Allergy Unknown N/A 12/23/2017 Yes morphine Drug Allergy Unknown N/A 12/23/2017 Medications Medication Packaging Start Date Stop Date Route Dosage Sig Plavix 75 mg tablet Tablet 12/23/2017 75 mg take 1 (one) Tablet by Oral route daily cranberry extract 425 mg capsule Capsule 12/23/2017 425 mg take 1 (one) Capsule by Oral route daily levothyroxine 112 mcg tablet Tablet 12/23/2017 112 mcg 1 (one) by Oral route daily ferrous sulfate 325 mg (65 mg iron) tablet,delayed release Blister 12/23/2017 325 mg (65 mg iron) 1 (one) by Oral route daily melatonin 3 mg tablet Tablet 12/23/2017 3 mg take 1 (one) Tablet by Oral route at bedtime aspirin 81 mg tablet,delayed release Tablet 12/23/2017 81 mg take 1 (one) Tablet by Oral route daily NovoLOG Flexpen U-100 Insulin aspart 100 unit/mL subcutaneous Milliliter 12/23/2017 100 unit/mL take 5 (five) Unit(s) by Subcutaneous route three times per day sertraline 50 mg tablet Tablet 12/23/2017 50 mg take 1 (one) Tablet by Oral route daily atorvastatin 40 mg tablet Blister 12/23/2017 40 mg take 1 (one) Tablet by Oral route daily Lantus Solostar U-100 Insulin 100 unit/mL (3 mL) subcutaneous pen Milliliter 12/23/2017 100 unit/mL (3 mL) take 5-8 Unit(s) by Subcutaneous route daily furosemide 40 mg tablet Tablet 12/23/2017 40 mg take 1 (one) Tablet by Oral route daily losartan 25 mg tablet Tablet 12/23/2017 25 mg take 1 (one) Tablet by Oral route daily amLODIPine 5 mg tablet Blister 12/23/2017 5 mg take 1 (one) Tablet by Oral route daily ONDANSETRON VIAL INJ 4 MG/2CC (ZOFRAN 2CC VIAL) MG 01/25/2018 01/25/2018 ONCE&1222 MECLIZINE TAB 25 MG (ANTIVERT) MG 01/25/2018 01/25/2018 PRN ONCE DIAZEPAM SYRINGE INJ 5 MG/CC (VALIUM SYRINGE) MG 01/25/2018 01/25/2018 ONCE&1222 DIAZEPAM TAB 2 MG (VALIUM) MG 01/25/2018 01/25/2018 PRN ONCE INSULIN REGULAR HUMAN INJ 100 UNITS/CC (HUMULIN R / NOVOLIN R INSULIN) UNITS 01/25/2018 01/25/2018 ONCE&1505 INSULIN ASPART PEN INJ 100 UNITS/CC (NOVOLOG FLEXPEN) 01/25/2018 02/24/2018 ACHS&0630,1130,1630,2100 DIAZEPAM TAB 2 MG (VALIUM) MG 01/25/2018 02/01/2018 Q12H&0600,1800 ONDANSETRON VIAL INJ 4 MG/2CC (ZOFRAN 2CC VIAL) MG 01/25/2018 02/01/2018 PRN Q4H PANTOPRAZOLE VIAL INJ 40 MG (PROTONIX IV) MG 01/25/2018 02/03/2018 Daily&1800 ACETAMINOPHEN ORAL TABLET 325mg(Tylenol) MG 01/25/2018 02/24/2018 PRN EVERY 4 Hour MECLIZINE TAB 25 MG (ANTIVERT) MG 01/25/2018 02/01/2018 PRN Q8H GABAPENTIN CAP 100 MG (NEURONTIN) Dose(s) 01/26/2018 02/01/2018 Daily&0900 CLOPIDOGREL TAB 75 MG (PLAVIX) Dose(s) 01/26/2018 02/01/2018 Daily&0900 SERTRALINE TAB 50 MG (ZOLOFT) Dose(s) 01/26/2018 02/01/2018 Daily&0900 ASPIRIN ENTERIC COATED TAB 81 MG (BABY ASPIRIN EC) Dose(s) 01/26/2018 02/01/2018 Daily&0900 FUROSEMIDE TAB 40 MG (LASIX) Dose(s) 01/26/2018 02/01/2018 Daily&0900 LOSARTAN TAB 25 MG (COZAAR) Dose(s) 01/26/2018 02/01/2018 Daily&0900 LEVOTHYROXINE TAB 112 MCG (SYNTHROID) Dose(s) 01/26/2018 02/01/2018 Daily&0900 MECLIZINE TAB 25 MG (ANTIVERT) MG 01/26/2018 02/02/2018 PRN Q8H DIAZEPAM TAB 2 MG (VALIUM) MG 02/20/2018 02/20/2018 ONCE&1839 MACROBID CAP 100 MG (NITROFURANTOIN-BID CAP) MG 07/14/2018 07/14/2018 ONCE&1945 MACROBID CAP 100 MG (NITROFURANTOIN-BID CAP) MG 07/14/2018 07/21/2018 BID&0800,2000 ONDANSETRON VIAL INJ 4 MG/2CC (ZOFRAN 2CC VIAL) MG 08/28/2018 08/28/2018 PRN ONCE NORMAL SALINE 500CC IV BAG INJ 0.9 % (NS 500CC IV BAG) ml 08/28/2018 08/28/2018 ONCE&2055 MECLIZINE TAB 25 MG (ANTIVERT) MG 08/28/2018 08/28/2018 PRN ONCE ONDANSETRON VIAL INJ 4 MG/2CC (ZOFRAN 2CC VIAL) MG 09/08/2018 09/08/2018 ONCE&2017 NORMAL SALINE 1000CC IV BAG INJ 0.9 % (NS 1000CC IV BAG) ml 09/08/2018 09/23/2018 CONTINUOUSEVERY 0 Hour MECLIZINE TAB 25 MG (ANTIVERT) MG 09/08/2018 09/08/2018 ONCE&2054 DIAZEPAM TAB 2 MG (VALIUM) MG 09/08/2018 09/08/2018 PRN ONCE Problems Date Dx Coded Attending Type Code Diagnosis Diagnosed By 05/19/2017 MIMA WILSON E03.9 Hypothyroidism, unspecified 05/19/2017 MIMA WILSON A D 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 05/19/2017 SAUCEDAMIMA FRANKLIN R82.99 Other abnormal findings in urine 05/19/2017 SAUCEDAMIMA FRANKLIN Z13.220 Encounter for screening for lipoid disorders 10/13/2017 SAUCEDAMIMA FRANKLIN E03.9 Hypothyroidism, unspecified 10/13/2017 SAUCEDAMIMA FRANKLIN 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 10/13/2017 SAUCEDAMIMA FRANKLIN I10 Essential (primary) hypertension 10/13/2017 SAUCEDAMIMA FRANKLIN R82.99 Other abnormal findings in urine 10/15/2017 KOMAL DOLANMIMA Aguilera E03.9 Hypothyroidism, unspecified 10/15/2017 SAUCEDAMIMA FRANKLIN 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 10/15/2017 SAUCEDAMIMA FRANKLIN I10 Essential (primary) hypertension 10/15/2017 KOMAL DOLANMIMA Aguilera R82.99 Other abnormal findings in urine 12/31/2017 KERIJIM MERAD I 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 KERIJR MERAGARD I 12/31/2017 KERI ANIBAL I I12.9 Hypertensive chronic kidney disease with stage 1 through stage 4 chronic kidney disease, or unspecified chronic kidney disease KERIJR MERAGARD I 12/31/2017 KERIJRANIBAL I N18.3 Chronic kidney disease, stage 3 (moderate) KERIJRANIBAL I 01/26/2018 Dulce Velarde W 244.9 UNSPECIFIED HYPOTHYROIDISM 01/26/2018 Dulce Velarde W 250.01 01/26/2018 Dulce Velarde W 272.4 OTHER AND UNSPECIFIED HYPERLIPIDEMIA 01/26/2018 Dulce Velarde A 386.11 01/26/2018 Dulce Velarde 401.0 MALIGNANT ESSENTIAL HYPERTENSION 01/26/2018 Dulce Velarde 414.01 CORONARY ATHEROSCLEROSIS OF [place] CORONARY ARTERY 01/26/2018 Dulce Velarde E03.9 HYPOTHYROIDISM, UNSPECIFIED 01/26/2018 Ramez Velardei W E10.9 TYPE 1 DIABETES MELLITUS WITHOUT COMPLICATIONS 01/26/2018 VelardeRameztamara Wright E78.5 HYPERLIPIDEMIA, UNSPECIFIED 01/26/2018 VelardeDulce munguia A H81.13 BENIGN PAROXYSMAL VERTIGO, BILATERAL 01/26/2018 Ramez Velardei W I10 ESSENTIAL (PRIMARY) HYPERTENSION 01/26/2018 VelardeRamezi W I25.10 ATHSCL HEART DISEASE OF [place] CORONARY ARTERY W/O ANG PCTRS 01/26/2018 Ramez Velardei W 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), AND CEREBRAL INFARCTION WITHOUT RESIDUAL DEFICITS 01/26/2018 VelardeRameztamara Wright Z86.73 PRSNL HX OF TIA (TIA), AND CEREB INFRC W/O RESID DEFICITS 02/20/2018 Andrew Levy W 388.30 TINNITUS, UNSPECIFIED 02/20/2018 Andrew Levy 780.4 DIZZINESS AND GIDDINESS 02/20/2018 Andrew Levy H93.13 TINNITUS, BILATERAL 02/20/2018 Andrew Levy R42 DIZZINESS AND GIDDINESS 03/12/2018 UNLISTED, UNLISTED W 250.60 03/12/2018 UNLISTED, UNLISTED W 386.11 BENIGN PAROXYSMAL POSITIONAL VERTIGO 03/12/2018 UNLISTED, UNLISTED W 401.0 MALIGNANT ESSENTIAL HYPERTENSION 03/12/2018 UNLISTED, UNLISTED W 414.01 CORONARY ATHEROSCLEROSIS OF [place] CORONARY ARTERY 03/12/2018 UNLISTED, UNLISTED W 443.9 PERIPHERAL VASCULAR DISEASE, UNSPECIFIED 03/12/2018 UNLISTED, UNLISTED W 781.2 ABNORMALITY OF GAIT 03/12/2018 UNLISTED, UNLISTED W 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 03/12/2018 UNLISTED, UNLISTED W H81.13 BENIGN PAROXYSMAL VERTIGO, BILATERAL 03/12/2018 UNLISTED, UNLISTED W I10 ESSENTIAL (PRIMARY) HYPERTENSION 03/12/2018 UNLISTED, UNLISTED W I25.10 ATHSCL HEART DISEASE OF [place] CORONARY ARTERY W/O ANG PCTRS 03/12/2018 UNLISTED, UNLISTED W I73.9 PERIPHERAL VASCULAR DISEASE, UNSPECIFIED 03/12/2018 UNLISTED, UNLISTED W R26.89 OTHER ABNORMALITIES OF GAIT AND MOBILITY 03/26/2018 W 719.41 PAIN IN JOINT INVOLVING SHOULDER REGION 03/26/2018 W 728.87 MUSCLE WEAKNESS (GENERALIZED) 03/26/2018 W M25.511 PAIN IN RIGHT SHOULDER 03/26/2018 W M62.81 MUSCLE WEAKNESS (GENERALIZED) 05/11/2018 W 719.41 PAIN IN JOINT INVOLVING SHOULDER REGION 05/11/2018 W 728.87 MUSCLE WEAKNESS (GENERALIZED) 05/11/2018 W M25.511 PAIN IN RIGHT SHOULDER 05/11/2018 W M62.81 MUSCLE WEAKNESS (GENERALIZED) 07/14/2018 Susan Dawson A W 599.0 URINARY TRACT INFECTION, SITE NOT SPECIFIED 07/14/2018 Susan Dawson A W N39.0 URINARY TRACT INFECTION, SITE NOT SPECIFIED 07/30/2018 ANIBAL SAAVEDRA I E11.22 Type 2 diabetes mellitus with diabetic chronic kidney disease ANIBAL SAAVEDRA I 07/30/2018 ANIBAL SAAVEDRA I N18.3 Chronic kidney disease, stage 3 (moderate) KERIANIBAL MERA I 08/27/2018 W 781.99 OTHER SYMPTOMS INVOLVING NERVOUS AND MUSCULOSKELETAL SYSTEMS 08/27/2018 W R29.6 REPEATED FALLS 08/27/2018 W 781.2 ABNORMALITY OF GAIT 08/27/2018 W 781.99 OTHER SYMPTOMS INVOLVING NERVOUS AND MUSCULOSKELETAL SYSTEMS 08/27/2018 W R26.0 ATAXIC GAIT 08/27/2018 W R29.6 REPEATED FALLS 08/27/2018 W 781.2 ABNORMALITY OF GAIT 08/27/2018 W 781.99 OTHER SYMPTOMS INVOLVING NERVOUS AND MUSCULOSKELETAL SYSTEMS 08/27/2018 W R26.0 ATAXIC GAIT 08/27/2018 W R29.6 REPEATED FALLS 08/28/2018 Susan Dawson A W 780.4 DIZZINESS AND GIDDINESS 08/28/2018 Franchesca Dawsonissa A W 791.9 OTHER NONSPECIFIC FINDINGS ON EXAMINATION OF URINE 08/28/2018 Susan Dawson A W 872.01 OPEN WOUND OF AURICLE, UNCOMPLICATED 08/28/2018 Franchesca Dawsonissa A W R42 DIZZINESS AND GIDDINESS 08/28/2018 Susan Dawson A W R82.998 OTHER ABNORMAL FINDINGS IN URINE 08/28/2018 Susan Dawson A W S01.312A LACERATION WITHOUT FOREIGN BODY OF LEFT EAR, INIT ENCNTR 09/08/2018JulyDawsonSusan mckeon W 386.11 BENIGN PAROXYSMAL POSITIONAL VERTIGO 09/08/2018JulyDawsonSusan mckeon W H81.10 BENIGN PAROXYSMAL VERTIGO, UNSPECIFIED EAR 09/08/2018JulyDawsonSusan W 249.80 SECONDARY DIABETES MELLITUS WITH OTHER SPECIFIED MANIFESTATIONS, NOT STATED UNCONTROLLED, OR UNSPECIFIED 09/08/2018JulyDawsonSusan mckeon W 386.11 BENIGN PAROXYSMAL POSITIONAL VERTIGO 09/08/2018JulyDawsonSusan W E08.65 DIABETES MELLITUS DUE TO UNDERLYING CONDITION WITH HYPERGLYCEMIA 09/08/2018JulyDawsonSusan W H81.10 BENIGN PAROXYSMAL VERTIGO, UNSPECIFIED EAR 09/08/2018JulyDawsonSusan W 249.80 SECONDARY DIABETES MELLITUS WITH OTHER SPECIFIED MANIFESTATIONS, NOT STATED UNCONTROLLED, OR UNSPECIFIED 09/08/2018JulyDawosnSusan W 386.11 BENIGN PAROXYSMAL POSITIONAL VERTIGO 09/08/2018JulyDawsonSusan W E08.65 DIABETES MELLITUS DUE TO UNDERLYING CONDITION WITH HYPERGLYCEMIA 09/08/2018JulyDawsonSusan W H81.10 BENIGN PAROXYSMAL VERTIGO, UNSPECIFIED EAR 09/08/2018JulyDawsonSusan W 249.80 SECONDARY DIABETES MELLITUS WITH OTHER SPECIFIED MANIFESTATIONS, NOT STATED UNCONTROLLED, OR UNSPECIFIED 09/08/2018JulyDawsonSusan A W 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 09/08/2018JulyDawsonSusan A W 386.11 BENIGN PAROXYSMAL POSITIONAL VERTIGO 09/08/2018JulyDawsonSusan W E08.65 DIABETES MELLITUS DUE TO UNDERLYING CONDITION WITH HYPERGLYCEMIA 09/08/2018JulyDawsonSusan A W E72.51 NON-KETOTIC HYPERGLYCINEMIA 09/08/2018JulyDawsonSusan W H81.10 BENIGN PAROXYSMAL VERTIGO, UNSPECIFIED EAR 09/08/2018JulyDawsonSusan A W 249.80 SECONDARY DIABETES MELLITUS WITH OTHER SPECIFIED MANIFESTATIONS, NOT STATED UNCONTROLLED, OR UNSPECIFIED 09/08/2018JulyDawsonSusan W 250.80 DIABETES MELLITUS WITH OTHER SPECIFIED MANIFESTATIONS, TYPE II OR UNSPECIFIED TYPE, NOT STATED UNCONTROLLED 09/08/2018JulyDawsonSusan A W 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 09/08/2018JulyDawsonSusan A W 386.11 BENIGN PAROXYSMAL POSITIONAL VERTIGO 09/08/2018 Susan Dawson W E08.65 DIABETES MELLITUS DUE TO UNDERLYING CONDITION WITH HYPERGLYCEMIA 09/08/2018 Susan Dawson W E11.65 TYPE 2 DIABETES MELLITUS WITH HYPERGLYCEMIA 09/08/2018 Susan Dawson W E72.51 NON-KETOTIC HYPERGLYCINEMIA 09/08/2018 Susan Dawson W H81.10 BENIGN PAROXYSMAL VERTIGO, UNSPECIFIED EAR Procedures Code Description [place] [address] ROUTINE VENIPUNCTURE 06/20/2015 79521 METABOLIC PANEL TOTAL CA 06/20/2015 33222 COMPLETE CBC W/AUTO DIFF WBC 06/20/2015 45966 ELECTROCARDIOGRAM, TRACING 06/20/2015 L3808 WHFO, RIGID W/O JOINTS 07/18/2015 45391 COMPREHEN METABOLIC PANEL MIMA WILSON 05/19/2017 94276 LIPID PANEL MIMA WILSON 05/19/2017 10065 URINALYSIS AUTO W/SCOPE MIMA WILSON 05/19/2017 89823 UR ALBUMIN SEMIQUANTITATIVE MIMA WILSON 05/19/2017 87144 ASSAY OF URINE CREATININE MIMA WILSON 05/19/2017 69212 GLYCOSYLATED HEMOGLOBIN TEST MIMA WILSON 05/19/2017 70392 ASSAY THYROID STIM HORMONE MIMA WILSON 05/19/2017 18440 COMPLETE CBC W/AUTO DIFF WBC MIMA WILSON 05/19/2017 01952 CULTURE AEROBIC IDENTIFY MIMA WILSON 05/19/2017 21693 URINE CULTURE/COLONY COUNT MIMA WILSON 05/19/2017 10361 MICROBE SUSCEPTIBLE TRACEY MIMA WILSON 05/19/2017 88668 COMPREHEN METABOLIC PANEL MIMA WILSON 10/13/2017 11540 GLYCOSYLATED HEMOGLOBIN TEST MIMA WILSON 10/13/2017 01393 ASSAY THYROID STIM HORMONE MIMA WILSON 10/13/2017 59517 COMPLETE CBC W/AUTO DIFF WBC MIMA WILSON 10/13/2017 29593 URINALYSIS AUTO W/SCOPE MIMA WILSON 10/15/2017 95014 UR ALBUMIN SEMIQUANTITATIVE [employer]UCEDA [employer] TUTOR, MIMA Hathaway 10/15/2017 17930 ASSAY OF URINE CREATININE [employer]OR, MIMA Hathaway 10/15/2017 66816 CULTURE AEROBIC IDENTIFY [employer]UCEDA [employer] TUTOR, MIMA Hathaway 10/15/2017 71764 URINE CULTURE/COLONY COUNT [employer]UC[employer] T[employer]OR, MIMA Hathwaay 10/15/2017 99630 MICROBE SUSCEPTIBLE TRACEY [employer]OR, MIMA Hathaway 10/15/2017 85714 URINALYSIS AUTO W/SCOPE [employer] T[employer]OR, MIMA Hathaway 10/15/2017 60448 UR ALBUMIN SEMIQUANTITATIVE [employer]OR, MIMA Hathaway 10/15/2017 56511 ASSAY OF URINE CREATININE [employer]UC[employer] TUTOR, MIMA Hathaway 10/15/2017 47621 CULTURE AEROBIC IDENTIFY [employer]UC[employer]OR, MIMA Hathaway 10/15/2017 08244 URINE CULTURE/COLONY COUNT [employer]OR, MIMA Hathaway 10/15/2017 28407 MICROBE SUSCEPTIBLE TRACEY [employer]OR, MIMA A 10/15/2017 79173 Office or other outpatient visit for the evaluation and management of a new patient, which requires ANIBAL SAAVEDRA I 12/31/2017 64304 Office or other outpatient visit for the evaluation and management of a new patient, which requires ANIBAL SAAVEDRA I 06/10/2018 80203 Office or other outpatient visit for the evaluation and management of an established patient, which ANIBAL SAAVEDRA I 07/30/2018 97798 Office or other outpatient visit for the evaluation and management of an established patient, which ANIBAL SAAVEDRA I 09/02/2018 Results Test Result Range CBC WITH DIFF - 06/18/15 00:00 BASO% 0.9 % 0-2 EOS% 4.1 % 0-7.0 HCT 38.6 % 36.9-47.0 HGB 12.1 G/DL 12.0-16.0 LYMPH% 37.0 % 20-40 MCH 28.0 PG 27-31 MCHC 31.3 G/DL 33-37 MCV 89.4 FL 81-99 MONO% 6.8 % 0-10.0 MPV 12.0 FL 7.3-10.4 NEUTRO% 50.9 % 40-70 PLT 219 10^3u 130-400 RBC 4.3 10^6u 4.2-5.4 RDW 13.5 % 11.5-15.5 WBC 7.8 10^3u 4.8-10.8 NEUTRO# 4.0 10^3u 1.5-7.5 LYMPH# 2.9 10^3u 0.9-4.0 MONO# 0.5 10^3u 0-0.8 EOS# 0.3 10^3u 0-0.6 BASO# 0.1 10^3u 0-0.1 IMM GRANULOCYTE % 0.3 % IMM GRANULOCYTE # 0.0 10^3u 0-5 BMP - 06/18/15 00:00 BCR 24.1 10-20 BUN 20 MG/DL 7-18 CA 8.6 MG/DL 8.4-10.2 CL 104 MEQ/L 98-107 CO2 28.7 MEQ/L 22-28 CREA 0.83 MG/DL 0.6-1.0 EGFR 68 eGFR >=60 GLU 177 MG/DL 70-105 K 4.2 MEQ/L 3.5-5.1 NA 140 MEQ/L 134-145 OSMSC 286.4 MOSML 280-300 Anion Gap 7.3 8-16 Thyroid Stimulating Hormone - 01/25/18 12:39 TSH 5.56 mIU/mL 0.32-5.00 Urinalysis - 01/25/18 13:35 Icotest N/A Negative Urine Volume Urine Volume Insufficient (<10mL) May Affect Microscopic Exam Urine-Appearance Clear Clear Urine-Bacteria Negative Urine-Bilirubin Negative Negative Urine-Blood Negative Negative Urine-Color Yellow Colorless-Lt. Yellow Urine-Epithelial Cells None Seen Urine-Glucose 2+ Negative Urine-Ketones Trace Negative Urine-Leukocytes Negative Negative Urine-Nitrite Negative Negative Urine-pH 6.5 5-8.5 Urine-Protein Negative Negative Urine-RBC Negative Urine-Specific [place] 1.015 1.000-1.030 Urine-WBC Negative Urobilinogen 0.2 E.U./dL 0.2-1.0 Comprehensive Metabolic Panel - 01/26/18 04:46 Albumin 3.5 g/dL 3.6-5.1 ALP 121 U/L 35-130 ALT 20 U/L 6-45 Anion Gap 16 6-14 AST 24 U/L 2-40 BUN 20 mg/dL 5-25 Calcium 9.2 mg/dL 8.3-10.4 Chloride 104 mmol/L 95-114 CO2 22 mEq/L 22-33 Creat 0.91 mg/dL 0.50-1.50 eGFR 61 mL/min/1.73m2 >59 Globulin 2.7 g/dL 2.3-3.5 Glucose 247 mg/dL 70-110 Osmo 293 280-295 Potassium 5.0 mmol/L 3.5-5.3 Sodium 137 mmol/L 134-148 TBil 0.2 mg/dL 0.2-1.2 TP 6.2 g/dL 6.0-8.3 Comprehensive Metabolic Panel - 02/20/18 18:42 Albumin 3.6 g/dL 3.6-5.1 ALP 122 U/L 35-130 ALT 30 U/L 6-45 Anion Gap 14 6-14 AST 30 U/L 2-40 BUN 24 mg/dL 5-25 Calcium 9.5 mg/dL 8.3-10.4 Chloride 101 mmol/L 95-114 CO2 24 mEq/L 22-33 Creat 0.95 mg/dL 0.50-1.50 eGFR 58 mL/min/1.73m2 >59 Globulin 3.0 g/dL 2.3-3.5 Glucose 261 mg/dL 70-110 Osmo 291 280-295 Potassium 4.2 mmol/L 3.5-5.3 Sodium 135 mmol/L 134-148 TBil 0.5 mg/dL 0.2-1.2 TP 6.6 g/dL 6.0-8.3 Urinalysis - 02/20/18 19:10 Icotest N/A Negative Urine Volume Urine Volume Sufficient (10mL) Urine-Appearance Clear Clear Urine-Bacteria Rare Urine-Bilirubin Negative Negative Urine-Blood Negative Negative Urine-Color Yellow Colorless-Lt. Yellow Urine-Epithelial Cells 0-5/HPF Urine-Glucose 2+ Negative Urine-Ketones Trace Negative Urine-Leukocytes Negative Negative Urine-Nitrite Negative Negative Urine-Other Urine Saved if Culture Needed (48hrs from time of collection) Urine-pH 5.5 5-8.5 Urine-Protein Negative Negative Urine-RBC 0-2/HPF Urine-Specific [place] 1.020 1.000-1.030 Urine-WBC 0-2/HPF Urobilinogen 0.2 0.2-1.0 Thyroid Stimulating Hormone - 03/29/18 09:51 TSH 4.21 mIU/mL 0.32-5.00 Free K+L Lt Chains,Qn,S - 07/05/18 10:00 Free [place] Lt Chains,S 20.1 mg/L 3.3-19.4 Free Lambda Lt Chains,S 14.0 mg/L 5.7-26.3 [place]/Lambda Ratio,S 1.44 0.26-1.65 Vitamin D, 25 OH - 07/05/18 10:00 Vitamin D, 25 OH 32.40 ng/mL 25.00-100.00 Thyroid Stimulating Hormone - 07/05/18 10:00 TSH 4.66 mIU/mL 0.32-5.00 Free K+L Lt Chains,Qn,S - 07/05/18 10:00 FREE KAPPA LT CHAINS,S 20.1 MG/L 3.3-19.4 FREE LAMBDA LT CHAINS,S 14.0 MG/L 5.7-26.3 KAPPA/LAMBDA RATIO,S 1.44 0.26-1.65 PTH, Intact - 07/05/18 10:00 PTH, INTACT 75 PG/ML 15-65 MISBAH and PE, Serum - 07/05/18 10:00 Protein, Total, Serum 6.6 g/dL 6.0-8.5 Immunoglobulin G, Qn, Serum 881 mg/dL 700-1600 Immunoglobulin A, Qn, Serum 213 mg/dL 64-422 Immunoglobulin M, Qn, Serum 146 mg/dL 26-217 Albumin 3.4 g/dL 2.9-4.4 Zfcex-5-Iebrnuks 0.2 g/dL 0.0-0.4 Dopyo-4-Pgtolzdz 1.0 g/dL 0.4-1.0 Beta Globulin 1.1 g/dL 0.7-1.3 Gamma Globulin 0.9 g/dL 0.4-1.8 M-Max Not Observed g/dL Not Observed Globulin, Total 3.2 g/dL 2.2-3.9 A/G Ratio 1.1 0.7-1.7 Immunofixation Result, Serum Comment Please note: Comment PDF . PTH, Intact - 04/08/19 10:00 PTH, Intact 75 pg/mL 15-65 Urinalysis - 07/14/18 19:20 Icotest N/A Negative Urine Crystals Amorphous material: Few/HPF Urine Volume Urine Volume Sufficient (10mL) Urine-Appearance Slightly Cloudy Clear Urine-Bacteria 3+ Urine-Bilirubin Negative Negative Urine-Blood Negative Negative Urine-Color Yellow Colorless-Lt. Yellow Urine-Epithelial Cells 0-5/HPF Urine-Glucose 2+ Negative Urine-Ketones Negative Negative Urine-Leukocytes 1+ Negative Urine-Nitrite Positive Negative Urine-Other Culture to follow Urine-pH 5.0 5-8.5 Urine-Protein Negative Negative Urine-RBC 0-2/HPF Urine-Specific [place] 1.010 1.000-1.030 Urine-WBC 10-20/HPF Urobilinogen 0.2 0.2-1.0 CBC With Platelet and Differential - 07/22/18 09:53 Hematocrit (HCT) 41.0 % 37.0-47.0 Hemoglobin (Hgb) 13.2 G/DL 12.0-16.0 WBC 8.76 K/UL 4.8-10.8 Creatinine, Serum - 07/22/18 09:53 Creatinine, Serum 1.14 0.6-1.4 GFR, Estimated - 07/22/18 09:53 eGFR 47 ML/MIN >60 Potassium (K), Serum - 07/22/18 09:53 Potassium (K), Serum 4.4 MEQ/L 3.2-5.2 [place]/CR ratio - 07/22/18 09:53 Creatinine, Random U 58.8 MG/DL NRG Protein,Total, Rdm U 9 MG/DL NRG Protein/Creat Ratio 0.15 NRG Vitamin D, 25-Hydroxy - 07/22/18 09:53 Vitamin D,25-Hydroxy 32.40 NG/ML 25-80 PTH (Parathyroid Hormone) - 07/22/18 09:53 PTH, Intact 75 PG/ML 9.0-78.0 CBC With Platelet and Differential - 07/22/18 09:55 Hematocrit (HCT) 41.2 % 37.0-47.0 Hemoglobin (Hgb) 12.6 G/DL 12.0-16.0 WBC 6.47 K/UL 4.8-10.8 Creatinine, Serum - 07/22/18 09:55 Creatinine, Serum 1.07 0.6-1.4 GFR, Estimated - 07/22/18 09:55 eGFR 50 ML/MIN >60 Potassium (K), Serum - 07/22/18 09:55 Potassium (K), Serum 4.4 MEQ/L 3.2-5.2 CBC With Platelet and Differential - 07/22/18 09:57 Hematocrit (HCT) 37.9 % 37.0-47.0 Hemoglobin (Hgb) 11.9 G/DL 12.0-16.0 WBC 8.11 K/UL 4.8-10.8 Creatinine, Serum - 07/22/18 09:57 Creatinine, Serum 0.95 0.6-1.4 GFR, Estimated - 07/22/18 09:57 eGFR 58 ML/MIN >60 Potassium (K), Serum - 07/22/18 09:57 Potassium (K), Serum 4.2 MEQ/L 3.2-5.2 CBC With Platelet and Differential - 07/22/18 09:58 Hematocrit (HCT) 37.9 % 37.0-47.0 Hemoglobin (Hgb) 11.8 G/DL 12.0-16.0 WBC 7.56 K/UL 4.8-10.8 Creatinine, Serum - 07/22/18 09:58 Creatinine, Serum 0.91 0.6-1.4 GFR, Estimated - 07/22/18 09:58 eGFR 61 ML/MIN >60 Potassium (K), Serum - 07/22/18 09:58 Potassium (K), Serum 5.0 MEQ/L 3.2-5.2 CBC With Platelet and Differential - 07/22/18 09:59 Hematocrit (HCT) 38.8 % 37.0-47.0 Hemoglobin (Hgb) 12.1 G/DL 12.0-16.0 WBC 7.81 K/UL 4.8-10.8 Creatinine, Serum - 07/22/18 09:59 Creatinine, Serum 0.95 0.6-1.4 GFR, Estimated - 07/22/18 09:59 eGFR 58 ML/MIN >60 Potassium (K), Serum - 07/22/18 09:59 Potassium (K), Serum 4.2 MEQ/L 3.2-5.2 Lipase - 08/28/18 20:56 Lipase 9 U/L 7-59 Urinalysis - 08/28/18 22:10 Icotest N/A Negative Urine Crystals Amorphous Material: abundant/HPF Urine Volume Urine Volume Sufficient (10mL) Urine Yeast No Yeast present Urine-Appearance Cloudy Clear Urine-Bacteria 1+ Urine-Bilirubin Negative Negative Urine-Blood Trace-intact Negative Urine-Color Yellow Colorless-Lt. Yellow Urine-Epithelial Cells 5-10/HPF Urine-Glucose 1+ Negative Urine-Ketones Negative Negative Urine-Leukocytes Trace Negative Urine-Nitrite Negative Negative Urine-Other Culture to follow Urine-pH 8.5 5-8.5 Urine-Protein 1+ Negative Urine-RBC 5-10/HPF Urine-Specific [place] 1.020 1.000-1.030 Urine-WBC 10-20/HPF Urobilinogen 0.2 0.2-1.0 Urine Culture - 08/28/18 22:22 MEDIA PLATED Setup at 22:26 on 08/28/2018 CULTURE SOURCE catheter Sensi - 08/28/18 22:22 FINAL CULTURE RESULTS Escherichia coli (Isolate 1) Ampicillin/Sulbactam >16/8 Ampicillin >16 Amoxicillin/K Clavulanate <=8/4 Ceftriaxone <=8 Ciprofloxacin <=1 Nitrofurantoin <=32 Gentamicin <=4 Levofloxacin <=2 Trimethoprim/ Sulfamethoxazole <=2/38 Tetracycline <=4 Amikacin <=16 Aztreonam <=8 Ceftazidime <=1 Ceftazidime/K Clavulanate <=0.25 Cephalothin 16 Cefotaxime <=2 Cefotaxime/K Clavulanate <=0.5 Cefoxitin <=8 Cefazolin <=8 Cefepime <=8 Cefuroxime <=4 Ertapenem <=1 Imipenem <=4 Meropenem <=4 Piperacillin/Tazobactam <=16 Piperacillin >64 Tigecycline <=2 Tobramycin <=4 Serum Ketone - 09/08/18 19:50 Serum Ketone Negative 0.00-0.00 Urinalysis - 09/08/18 21:00 Icotest N/A Negative Urine Volume Urine Volume Sufficient (10mL) Urine-Appearance Clear Clear Urine-Bacteria Rare Urine-Bilirubin Negative Negative Urine-Blood Negative Negative Urine-Color Yellow Colorless-Lt. Yellow Urine-Epithelial Cells 0-5/HPF Urine-Glucose 2+ Negative Urine-Ketones Negative Negative Urine-Leukocytes Negative Negative Urine-Nitrite Negative Negative Urine-Other Urine Saved if Culture Needed (48hrs from time of collection) Urine-pH 7.0 5-8.5 Urine-Protein Negative Negative Urine-RBC 0-2/HPF Urine-Specific [place] 1.020 1.000-1.030 Urine-WBC 0-2/HPF Urobilinogen 0.2 0.2-1.0 EKG - 09/08/18 21:05 EKG Complete Encounters ACCT No. Visit Date/Time Discharge Status Pt. Type Provider Facility Loc./Unit Complaint [id number] 10/15/2017 15:51:00 10/15/2017 15:51:00 [facility] Out[facility] [id number] 10/13/2017 15:51:00 10/13/2017 15:51:00 [facility] Out[facility] [id number] 05/19/2017 10:43:00 05/19/2017 10:43:00 DIS Outpatient [facility] [id number] 07/29/2015 00:01:00 08/28/2015 23:59:00 DIS Outpatient [facility] [id number] 07/03/2015 10:14:00 07/28/2015 23:59:00 DIS Outpatient [facility] OT [id number] 06/20/2015 09:26:00 06/20/2015 14:00:00 DIS Inpatient [facility] OPS [id number] 02/26/2015 00:00:00 Document Registration [id number] 08/17/2018 08:56:15 08/17/2018 23:59:59 CLS Outpatient ANIBAL SAAVEDRA Tamara [id number] 07/06/2018 15:13:00 Document Registration [id number] 06/24/2018 16:48:54 06/24/2018 23:59:59 CLS Outpatient yKle Barraza [id number] 12/28/2017 15:12:21 12/28/2017 23:59:59 CLS Outpatient Kyle Barraza [id number] 12/15/2017 10:05:58 12/15/2017 23:59:59 CLS Outpatient Susan Menendez [id number] 09/25/2017 16:34:36 09/25/2017 23:59:59 CLS Outpatient Leonelgustavo Ashwin [id number] 09/23/2017 17:15:10 09/23/2017 23:59:59 CLS Outpatient Kyle Barraza [id number] 09/23/2017 16:48:07 09/23/2017 23:59:59 CLS Outpatient Kyle Barraza [id number] 02/05/2017 14:09:50 02/05/2017 23:59:59 CLS Outpatient Kyle Barraza [id number] 11/25/2016 14:55:00 11/25/2016 23:59:59 CLS Outpatient MillerFracisco [id number] 11/12/2016 15:39:20 11/12/2016 23:59:59 CLS Outpatient FamiliarosalbaAshwin [id number] 10/17/2016 15:32:50 10/17/2016 23:59:59 CLS Outpatient Fracisco Bhatt [id number] 10/01/2016 14:35:12 10/01/2016 23:59:59 CLS Outpatient Fracisco Bhatt [id number] 09/22/2016 14:57:55 09/22/2016 23:59:59 CLS Outpatient Fracisco Bhatt [id number] 04/28/2016 14:03:02 ACT Unknown [id number] 09/08/2018 19:32:00 09/08/2018 23:38:00 DIS Outpatient Samir [facility] ER [id number] 09/07/2018 15:37:00 09/07/2018 16:05:00 DIS Outpatient Andrew Levy [id number] 08/28/2018 20:35:00 08/28/2018 23:20:00 DIS Outpatient Samir [facility] ER [id number] 07/14/2018 18:48:00 07/14/2018 19:59:00 DIS Outpatient Sam[facility] ER [id number] 07/05/2018 09:42:00 07/05/2018 23:59:00 DIS Outpatient Dulce Velarde [id number] 03/29/2018 09:40:00 03/29/2018 23:59:00 DIS Outpatient Dulce Velarde [id number] 03/29/2018 09:07:00 03/29/2018 23:59:00 DIS Outpatient Dulce Velarde [id number] 01/21/2018 13:07:00 03/12/2018 08:12:00 DIS Outpatient UNLISTED UNLJAIRON [id number] 02/20/2018 17:59:00 02/20/2018 20:18:00 DIS Outpatient Cam [facility] ER [id number] 01/25/2018 11:41:00 01/26/2018 16:30:00 DIS Outpatient Syd [facility] MED-SURG [id number] 08/25/2018 10:47:37 Document Registration [id number] 08/19/2018 16:15:46 Document Registration [id number] 03/25/2018 12:52:00 Document Registration [id number] 01/25/2018 12:26:55 Document Registration [id number] 07/07/2018 19:08:00 Document Registration
[2018-09-10] MEDS ORDERED: ONDA4TAB11 PO (11:52)
[2018-09-10] MEDS ORDERED: FURO40TA4 PO (11:52)
[2018-09-10] MEDS ORDERED: DIAZ2TAB2 PO (11:52)
[2018-09-10] MEDS ORDERED: INSU100V16 SC (11:52)
[2018-09-10] MEDS ORDERED: INSU100V16 SQ (11:52)
[2018-09-10] MEDS ORDERED: CLOP75TA28 PO (11:52)
[2018-09-10] MEDS ORDERED: INSU100V6 SQ (11:52)
[2018-09-10] MEDS ORDERED: ASPI-983 PO (11:52)
[2018-09-10] MEDS ORDERED: SERT50TA9 PO (11:52)
[2018-09-10] MEDS ORDERED: LEVO112T55 PO (11:52)
[2018-09-10] MEDS ORDERED: GABA-486 PO (11:52)
[2018-09-10] MEDS ORDERED: LOSA25TA41 PO (11:52)
[2018-09-10] MEDS ORDERED: INSU100V6 SC (11:52)
[2018-09-10] MEDS ORDERED: MECL-106 PO (11:52)
[2018-09-10] MEDS ORDERED: ATOR40TA70 PO (11:52)
[2018-09-10] MEDS ORDERED: C,E,1CAP PO (11:53)
--- NOTE | 2018-09-10 11:54 | NUR ---
PATIENT HAD HER BOTTLES WITH HER, I WENT OVER THE BOTTLES WITH HER AND HER AND ALSO COMPARED THEM TO WHAT HAS BEEN FILLED RECENTLY ACCORDING TO THE EXT MED HX. IN ADDITION TO WHAT IS SHOWN ON THE EXT MED HX SHE HAS BOTTLES FROM [facility] FOR: 07-10-18 ASPIRIN 81MG 2 DAILY #250 (HAS NOT INCREASED DOSE YET, WAS TAKING 1 TAB DAILY) 02-23-18 MECLIZINE 25MG Q8H PRN DIZZINESS #90 SHE TAKES OCUVITE 50+ OTC DAILY WELL. HER PLAVIX APPEARS TO BE PAST DUE, THE BOTTLE SHE HAS WAS FILLED 04-01-18 #90 AND THAT IS THE MOST RECENT FILL DATE ACCORDING TO THE EXT MED HX WELL. SHE IS TITRATING UP ON HER GABAPENTIN DOSE, SHE WAS TAKING 100MG DAILY FOR A LONG TIME BUT HAS INCREASED TO 200MG HS FOR 2 WEEKS THEN WILL INCREASE TO 300MG HS THEREAFTER.
--- NOTE | 2018-09-10 12:00 | Physical Therapy Evaluation ---
PT Evaluation-General Medical Diagnosis Admission Date Sep 10, 2018 at 11:22 Medical Diagnosis: debility/weakness Onset Date: Sep 10, 2018 Therapy Diagnosis Therapy Diagnosis: generalized weakness/debility Precautions Precautions/Isolations: Fall Prevention, Standard Precautions Weight Bear Status Right Lower Extremity: Right Full Weight Bearing Left Lower Extremity: Left Full Weight Bearing Referral Physician: Syd Reason for Referral: Evaluation/Treatment Medical History Pertinent Medical History: CVA, DM Additional Medical History left LE fasciotomy 2 yrs prior Current History Direct admit from home secondary to multiple falls and inability for spouse to care for patient. Patient has been dependent on spouse since CVA. Reviewed History: Yes Social History Home: Single Level Current Living Status: Spouse Entry Into Home: Level Entry Prior/Core FIM Prior Level of Function Therapy Code Descriptions/Definitions Functional [place] Measure: 0=Not Assessed/NA 4=Minimal Assistance 1=Total Assistance 5=Supervision or Setup 2=Maximal Assistance 6=Modified [place] 3=Moderate Assistance 7=Complete [place] Therapy Quality Codes: 6 Independent with activity with or without an assistive device 5 Patient requires set up or clean up by helper. Patient completes activity by themselves 4 Supervision or touching assist (CGA). [place] provide cues , steadying assist 3 The helper provides less than half the effort to complete the activity 2 The helper provides more than half the effort to complete the activity 1 Dependent. The helper does all the effort to complete an activity 7 Patient refused to complete or attempt activity 9 The patient did not perform the activity before the current illness or injury 88 Not attempted due to Medical conditions or safety concerns Functional Abilities and Goals: Independent: Patient completed the activities by him/herself, with or without an assistive device, with no assistance from a helper. Needed Some Help: Patient needed partial assistance from another person to complete activities. Dependent: A helper completed the activities for the patient. Unknown: Not Applicable: Bed Mobility: 5 Transfers (B,C,W/C) (FIM): 5 Gait: 5 Stairs: 1 Indoor Mobility (Ambulation): Needed Some Help Stairs: Needed Some Help Prior Devices Use: Walker Prior Device Use: FWW PT Evaluation-Current Subjective Patient agrees to begin therapy session. C/o nausea. Pain Numeric Pain Scale: 0-No Pain Location: No Pain Reported Objective Patient Orientation: Person, Confused Problem Solving: Fair ROM/Strength ROM Lower Extremities left foot fused due to fasciotomy distal LE 2 yrs prior/right LE WFL Strenght Lower Extremities left LE 3-/5 grossly/right LE 4-/5 grossly Integumentary/Posture Integumentary refer to nursing notes Bowel Incontinence: No Bladder Incontinence: Yes Posture WFL Neuromuscular (Tone, Coordination, Reflexes) diminished coordination left LE with difficulty with foot clearance resulting in multiple episodes of LOB with PT correct Sensory Vision: Wears Glasses Hearing: Functional Sensation Right Lower Extremit: Impaired Sensation Left Lower Extremity: Impaired Transfers Therapy Code Descriptions/Definitions Functional [place] Measure: 0=Not Assessed/NA 4=Minimal Assistance 1=Total Assistance 5=Supervision or Setup 2=Maximal Assistance 6=Modified [place] 3=Moderate Assistance 7=Complete [place] Therapy Quality Codes: 6 Independent with activity with or without an assistive device 5 Patient requires set up or clean up by helper. Patient completes activity by themselves 4 Supervision or touching assist (CGA). [place] provide cues , steadying assist 3 The helper provides less than half the effort to complete the activity 2 The helper provides more than half the effort to complete the activity 1 Dependent. The helper does all the effort to complete an activity 7 Patient refused to complete or attempt activity 9 The patient did not perform the activity before the current illness or injury 88 Not attempted due to Medical conditions or safety concerns Transfers (B, C, W/C) (FIM): 4 Scootin Rollin Roll Left to Right (QC): 4 Supine to/from Sit: 4 Sit to/from Stand: 4 Sit to Lying (QC): 4 Lying to Sitting/Side of Bed(Q: 4 Sit to Stand (QC): 4 Chair/Crm-lf-Bnmet Xfer(QC): 4 Car Transfer (QC): 5 CGA for safety and balance correction Gait Does the Patient Walk?: Yes Mode of Locomotion: Walk Anticipated Mode of Locomotion: Walk Gait (FIM): 4 Distance (FIM): 3=150 ft Walk 10 feet (QC): 4 Walk 50 ft with 2 Turns(QC): 4 Walk 150 ft (QC): 4 Walking 10ft/uneven surface-QC: 4 Distance: 150' x 3 Gait Level of Assist: 4 Gait Persons Needed: 1 Gait Assistive Device: FWW Comments/Gait Description forward flexed posture with leaning on FWW with multiple episodes of No left foot clearance requiring PT assist to maintain upright Stairs Stairs (FIM): 1 #of Steps: 1 Level of Assist: 3 1 Step (curb) (QC): 3 4 Steps (QC): 9 Assistive Device: Walker 12 Steps (QC): 9 Balance Sitting Static: Fair Sitting Dynamic: Fair Standing Static: Fair Standing Dynamic: Fair Treatment NuStep 15 min WL 3 to increase functional strength and mobility/balance training in stand with marching, rotation and gait on mat to address proprioception and balance deviations. Assessment/Needs 72 y.o. female, will benefit from skilled PT to address functional strength and mobility to improve current LOF to safely return to home with spouse at maximum LOF. Patient has been receiving outpatient PT, however, continues to have multiple falls at home per spouse report. Rehab Potential: Fair PT Retirement Goals Retirement Goals PT Retirement Goals Time Frame: Oct 09, 2018 Transfers (B,C,W/C) (FIM): 5 Sit to Lying (QC): 5 Lying-Sitting on Side/Bed(QC): 5 Sit to Stand (QC): 5 Rollin Roll Left to Right (QC): 5 Chair/Xwt-zu-Auric Xfer(QC): 5 Car Transfer (QC): 5 Does the Patient Walk: Yes Gait (FIM): 5 Gait distance (FIM): 3=150 ft Distance: 175' Walk 10 feet (QC): 5 Walk 10ft-Uneven Surface(QC): 5 Walk 50ft with 2 Turns (QC): 5 Walk 150 ft (QC): 5 Gait Level of Assist: 5 Gait Assistive Device: FWW Does the Pt use WC or Scooter?: No Stairs (FIM): 1 # of Steps: 1 1 Step (curb) (QC): 4 4 Steps (QC): 9 12 Steps (QC): 9 Stairs Level Of Assist: 4 Picking up an Object (QC): 4 spouse is main caregiver and assists patient with all functional mobility and ADL's PLOF PT Plan Problem List Problem List: Activity Tolerance, Functional Strength, Safety, Balance, Gait, Transfer, Bed Mobility, ROM Treatment/Plan Treatment Plan: Continue Plan of Care Treatment Plan: Bed Mobility, Concurrent Therapy, Education, Functional Activity Anjali, Functional Strength, Group Therapy, Gait, Safety, Therapeutic Exercise, Transfers Treatment Duration: Oct 09, 2018 Frequency: At least 5 of 7 days/Wk (IRF) Estimated Hrs Per Day: 1.5 hours per day Patient and/or Family Agrees t: Yes Safety Risks/Education Patient Education: Safety Issues Teaching Recipient: Patient Teaching Methods: Demonstration, Discussion Response to Teaching: Unable to Comprehend Discharge Recommendations Therapy D/C Recommendations: Home w/ Family Support, Detention Placement Time/GCodes Time In: 1100 Time Out: 1200 Total Billed Treatment Time: 60 Total Billed Treatment 1 visit EVModC 26 min EX 15 min FA 19 min SONIA DAN PT Sep 10, 2018 12:00
--- NOTE | 2018-09-10 12:04 | PM&R H&P / Post Admit Assess ---
History of Present Illness HPI/Chief Complaint Chief complaint: Autonomic dysfunction causing multiple and frequent falls History of present illness: This is a 72-year-old white female clinic patient of mine for the past year who has a past medical history of labile and brittle diabetes with history of DKA, hypothyroidism, TIA/CVA, CAD, severe PVD and autonomic dysfunction due to diabetes who presents to the inpatient rehab facility due to multiple ER visits due to multiple and frequent falls. She uses her walker and has been working with outpatient physical therapy at [facility] but has continued to have multiple falls most recently injuring and lacerating her left ear requiring sutures. Blood sugars have been somewhat controlled usual hemoglobin A1c is 8 but she does have labile blood pressure and blood sugar both causing difficulties with function at home. Her prior level of functioning is walking with a walker and needs help performing her ADLs by her and daughter. She does see Dr. Jacinto neurology who is been trying to work with her neuropathy placing her at more risk for falls. She is in need of fall prevention to decrease risk for further injury and strengthening and stamina building for ambulation and improve independent ADLs. Source: patient, family, RN/MD, old records, caregiver Exam Limitations: no limitations Date Seen 09/10/18 Time Seen by a Provider: 12:30 Attending Physician Dulce Velarde DO PCP No,Local Physician Referring Physician Date of Admission Sep 10, 2018 at 11:22 Home Medications & Allergies Home Medications Reviewed patient Home Medication Reconciliation performed by pharmacy medication reconciliations hydro technician and/or nursing. Patients Allergies have been reviewed. Allergies Allergies Coded Allergies No Known Drug Allergies (Unverified09/10/18) Past Qvmwfsy-Lispok-Rqbdbw Hx Past Med/Social Hx: Reviewed Nursing Past Med/Soc Hx, Reviewed and Corrections made Patient Social History Marrital Status: Employed/Student: retired Alcohol Use: Denies Use Smoking Status: Never a Smoker Past Medical History Surgeries: Orthopedic, Vascular Surgery DRY TRANSFER MAN shunts Cardiac: Coronary Artery Disease, High Cholesterol, Hypertension, Peripheral Va scular Neurological: Dementia, Neuropathy, Stroke, TIA Genitourinary: Bladder Infection Musculoskeletal: Foot Drop, Spasms Endocrine: Diabetes, Insulin dep, Hypothyroidsim Psychosocial: Depression Family History Reviewed Nursing Family Hx Review of Systems Constitutional: see HPI, dizziness, malaise, weakness, weight loss EENTM: no symptoms reported Respiratory: no symptoms reported Cardiovascular: no symptoms reported Gastrointestinal: no symptoms reported Genitourinary: decreased output Musculoskeletal: back pain, joint pain Skin: no symptoms reported Psychiatric/Neurological: Numbness, Tingling, Tremors, Weakness All Other Systems Reviewed Negative Unless Noted: Yes Physical Exam Exam Vital Signs Vital Signs Date Time Temp Pulse Resp B/P (MAP) Pulse Ox O2 Delivery O2 Flow Rate FiO2 09/10/18 17:54 97.2 89 20 158/92 (114) 97 Room Air Capillary Refill : General Appearance: No Apparent Distress, WD/WN, Chronically ill, Other (frail, pale) HEENT: PERRL/EOMI, Normal ENT Inspection, Pharynx Normal, Moist Mucous Membranes Neck: Full Range of Motion, Normal Inspection, Non Tender, Supple Respiratory: Chest Non Tender, Lungs Clear, Normal Breath Sounds, No Accessory Muscle Use, No Respiratory Distress Cardiovascular: Regular Rate, Rhythm, No Edema, No Gallop, No JVD, No Murmur Gastrointestinal: Normal Bowel Sounds, No Organomegaly, No Pulsatile Mass, Non Tender, Soft Back: Normal Inspection, No CVA Tenderness, No Vertebral Tenderness Extremity: Normal Capillary Refill, Normal Inspection, Normal Range of Motion, Non Tender, No Calf Tenderness, No Pedal Edema Neurologic/Psychiatric: Alert, Oriented x3 (poor memory recall), Normal Mood/Affect, 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 Assessment/Plan Assessment and Plan Assess & Plan/Chief Complaint Assessment: Autonomic dysfunction Multiple and frequent falls TIA hx CVA hx DM OOC HTN HLP Hypothyroidism NPH DRY TRANSFER MAN shunts recently assessed to be functioning well h/o DKA Depression Memory deficit Plan: Home meds Accuchecks SSI Check labs IRF protocols (1) Autonomic dysfunction with type 2 diabetes mellitus (2) Diabetes mellitus, insulin dependent (IDDM), controlled (3) TIA (transient ischemic attack) (4) CVA (cerebral vascular accident) (5) Myocardial infarct, old (6) Hypothyroidism (7) Hypertension (8) Depression (9) DKA (diabetic ketoacidoses) (10) Presbycusis of both ears (11) Memory deficit (12) NPH (normal pressure hydrocephalus) (13) DRY TRANSFER MAN (ventriculoperitoneal) shunt status (14) Anxiety (15) Falls frequently Post Admission Physician Asses Date seen by provider: Sep 10, 2018 Time seen by provider: 12:30 Admisison Dx: (1) Autonomic dysfunction with type 2 diabetes mellitus The preadmission screen agrees with the post admission assessment that the patient is a good candidate for inpatient rehabilitation. The patient will have a comprehensive program of inpatient rehabilitation with a goal of maximizing level of functional independence prior to discharge home with family. The patient will have PT/OT ninety minutes per day, each discipline, five days a week for gait, strengthening, conditioning, balance, ADLs, any patient/family/caregiver training as necessary. Speech therapy to do cognitive assessment and treat as indicated. Rehabilitation nursing to assist with bowel, bladder, skin, wound care, medication administration, pain management. Nursing Assistant to assist with discharge planning, community reentry. SCD's for DVT prophylaxis. She appears to be well motivated to participate in three hours of therapy a day. She should be able to tolerate three hours of therapy a day from a medical standpoint. She should benefit from the three hours of therapy a day. She has a reasonable discharge plan, reasonable discharge rehabilitation goals and a supportive family. She has various comorbidities that need to be closely monitored with medications and treatments adjusted on a daily basis as needed. These include: see list Barriers to discharge for this patient who had been independent prior to this are for her to be modified independent to supervision for ADLs and mobility skills prior to discharge home with family, so as to lessen the burden of the caregivers. Risks for this patient include: 1. Fall 2. Fracture 3. DVT 4. Pulmonary embolism 5. Wound infection 6. Skin breakdown 7. Contractures 8. Poorly controlled pain 9. Urinary retention 10. UTI 11. Respiratory infection 12. Aspiration Estimated Length of Stay: 7 days Prognosis: Rehab prognosis appears good for goal of discharge home with family modified independent to supervision for ADLs and mobility skills. DULCE VELARDE DO Sep 10, 2018 12:03
[2018-09-10] MEDS ORDERED: CALCIUM CARBONATE 500 MG (TUMS) TAB.CHEW PO PRN (12:15)
[2018-09-10] MEDS ORDERED: ONDANSETRON 4 MG (ZOFRAN) ORAL DISSOLVE TAB PO PRN (12:15)
[2018-09-10] MEDS ORDERED: diphenhydrAMINE 25 MG TAB (BENADRYL) PO PRN (12:15)
[2018-09-10] MEDS ORDERED: ACETAMINOPHEN 500 MG TAB (TYLENOL) PO PRN (12:15)
[2018-09-10] MEDS ORDERED: DOCUSATE SODIUM 100 MG (COLACE) CAP PO PRN (12:15)
[2018-09-10] MEDS ORDERED: LOPERAMIDE 2 MG (IMODIUM) TABLET PO PRN (12:15)
[2018-09-10 12:35] LABS: BASOPHILS # (AUTO) 0.1 10^3/uL (0.0-0.1); BASOPHILS % (AUTO) 1 % (0-10); EOSINOPHILS # (AUTO) 0.2 10^3/uL (0.0-0.3); EOSINOPHILS % (AUTO) 2 % (0-10); HEMATOCRIT 40 % (35-52); HEMOGLOBIN 12.3 G/DL (11.5-16.0); LYMPHOCYTES # (AUTO) 2.4 X 10^3 (1.0-4.0); LYMPHOCYTES % (AUTO) 24 % (12-44); MEAN CORPUSCULAR HEMOGLOBIN 28 PG (25-34); MEAN CORPUSCULAR HGB CONC 31 G/DL (32-36); MEAN CORPUSCULAR VOLUME 92 FL (80-99); MEAN PLATELET VOLUME 11.8 FL (7.4-10.4); MONOCYTES # (AUTO) 0.7 X 10^3 (0.0-1.0); MONOCYTES % (AUTO) 7 % (0-12); NEUTROPHILS # (AUTO) 6.7 X 10^3 (1.8-7.8); NEUTROPHILS % (AUTO) 67 % (42-75); PLATELET COUNT 227 10^3/uL (130-400); RED CELL DISTRIBUTION WIDTH 14.8 % (10.0-14.5)
[2018-09-10 12:59] LABS: ALBUMIN 3.9 GM/DL (3.2-4.5); BILIRUBIN,TOTAL 0.3 MG/DL (0.1-1.0); CALCIUM 9.7 MG/DL (8.5-10.1); CREATININE SERUM 1.05 MG/DL (0.60-1.30); POTASSIUM 3.9 MMOL/L (3.6-5.0); TOTAL PROTEIN 7.2 GM/DL (6.4-8.2)
[2018-09-10] MEDS ORDERED: DIAZEPAM 2 MG (VALIUM) TAB PO PRN (13:15)
[2018-09-10] MEDS ORDERED: MECLIZINE 25 MG (ANTIVERT) TAB PO PRN (13:15)
[2018-09-10] MEDS ORDERED: GABAPENTIN 100 MG (NEURONTIN) CAP PO SCH (13:15)
--- NOTE | 2018-09-10 14:52 | Occupational Ther Daily Note ---
OT Current Status-Daily Note Subjective Took over pt care from OTR/L. Pt in shower. Pt agrees to therapy. No c/o pain. Mental Status/Objective Patient Orientation: Person, Place, Time, Situation Therapy Code Descriptions/Definitions Functional [place] Measure: 0=Not Assessed/NA 4=Minimal Assistance 1=Total Assistance 5=Supervision or Setup 2=Maximal Assistance 6=Modified [place] 3=Moderate Assistance 7=Complete [place] ADL-Treatment Therapy Code Descriptions/Definitions Functional [place] Measure: 0=Not Assessed/NA 4=Minimal Assistance 1=Total Assistance 5=Supervision or Setup 2=Maximal Assistance 6=Modified [place] 3=Moderate Assistance 7=Complete [place] Therapy Quality Codes: 6 Independent with activity with or without an assistive device 5 Patient requires set up or clean up by helper. Patient completes activity by themselves 4 Supervision or touching assist (CGA). Midnight provide cues , steadying assist 3 The helper provides less than half the effort to complete the activity 2 The helper provides more than half the effort to complete the activity 1 Dependent. The helper does all the effort to complete an activity 7 Patient refused to complete or attempt activity 9 The patient did not perform the activity before the current illness or injury 88 Not attempted due to Medical conditions or safety concerns Grooming (FIM): 5 (SBA sitting at sink to complete all grooming.) Oral Hygiene (QC): 4 Upper Body (FIM): 5 (SBA after set up.) Upper Body Dressing (QC): 4 Lower Body Dressing (FIM): 2 (Assist to thread clothing over feet and don sock/shoes. Min A in standing due to LOB while pt hiking pants over hips.) Lower Body Dressing (QC): 2 On/Off Footwear (QC): 2 Transfers (B, C, W/C) (FIM): 4 (CGA using FWW. Pt's L foot will drag during ambulation, unable to right self.) Other Treatment Visual perceptual issues noted throughout grooming during reaching for faucet josé ndles and placing toothpaste on toothbrush. Pt does better with small areas to look for though will scan L <--> R to find item. Multiple verbal cues before pt will remember shape, number, etc when sorting. Fine motor fair, able to manipulate cards and puzzle pieces though visual cues with verbal cues works better to focus and understand activity. Pt appears anxious and will chew nails or pick at hands when stressed. PT took over care of pt. All needs met. OT Short Term Goals Short Term Goals 1=Demonstrate adherence to instructed precautions during ADL tasks. 2=Patient will verbalize/demonstrate understanding of assistive devices/modifications for ADL. 3=Patient will improve strength/tolerance for activity to enable patient to perform ADL's. OT Mcfp Goals Mcfp Goals 1=Demonstrate adherence to instructed precautions during ADL tasks. 2=Patient will verbalize/demonstrate understanding of assistive devices/modifications for ADL. 3=Patient will improve strength/tolerance for activity to enable patient to perform ADL's. OT Education/Plan Problem List/Assessment Assessment: Decreased Safety Aware, Decreased UE Strength, Impaired Cognition, Impaired Coordination, Impaired Funct Balance, Impaired Self-Care Skills, Visual-Perceptual Deficit Discharge Recommendations Plan/Recommendations: Continue POC Treatment Plan/Plan of Care Patient would benefit from OT for education, treatment and training to promote independence in ADL's, mobility, safety and/or upper extremity function for ADL's. Treatment Duration: Oct 08, 2018 Frequency: At least 5 of 7 days/Wk (IRF) Estimated Hrs Per Day: 1.5 hours per day Rehab Potential: Fair Time/GCodes Start Time: 13:40 Stop Time: 14:30 Total Time Billed (hr/min): 50 Billed Treatment Time 1 visit-ADL (20 min) NM 2 (30 min) ANA JULIEN Sep 10, 2018 14:51
--- NOTE | 2018-09-10 14:54 | Physical Therapy Daily Note ---
PT Daily Note-Current Subjective Patient in recliner pre tx, agrees to PT, has no complaints of pain. Just got done with OT. Appearance Patient in recliner post tx with nurse call, phone, tray, all needs met, legs elevated. Mental Status Patient Orientation: Person, Place Transfers Therapy Code Descriptions/Definitions Functional [place] Measure: 0=Not Assessed/NA 4=Minimal Assistance 1=Total Assistance 5=Supervision or Setup 2=Maximal Assistance 6=Modified [place] 3=Moderate Assistance 7=Complete [place] Therapy Quality Codes: 6 Independent with activity with or without an assistive device 5 Patient requires set up or clean up by helper. Patient completes activity by themselves 4 Supervision or touching assist (CGA). [place] provide cues , steadying assist 3 The helper provides less than half the effort to complete the activity 2 The helper provides more than half the effort to complete the activity 1 Dependent. The helper does all the effort to complete an activity 7 Patient refused to complete or attempt activity 9 The patient did not perform the activity before the current illness or injury 88 Not attempted due to Medical conditions or safety concerns Transfers (B, C, W/C) (FIM): 4 Sit to/from Stand: 4 Bed to/from Chair: 4 Weight Bearing Right Lower Extremity: Right Full Weight Bearing Left Lower Extremity: Left Full Weight Bearing Gait Training Gait (FIM): 2 Distance: 100'x2 Gait Level of Assist: 4 Gait Persons Needed: 1 Gait Assistive Device: FWW Patient did have one instance of LOB because her toes on the right side have poor clearance and she tripped, therapist assist to maintain balance. Exercises Seated Therapy Exercises: Ankle pumps, Hip flexion Seated Reps: 20 LAQ alternating for 5 min Treatments transfers, ambulation, LE exercise Assessment Current Status: Fair Progress poor endurance, patient needed many rest breaks due to fatigue PT Investment Advisor Goals Investment Advisor Goals PT Investment Advisor Goals Time Frame: Oct 09, 2018 Transfers (B,C,W/C) (FIM): 5 Sit to Lying (QC): 5 Lying-Sitting on Side/Bed(QC): 5 Sit to Stand (QC): 5 Rollin Roll Left to Right (QC): 5 Chair/Ygc-to-Wkmeh Xfer(QC): 5 Car Transfer (QC): 5 Does the Patient Walk: Yes Gait (FIM): 5 Gait distance (FIM): 3=150 ft Distance: 175' Walk 10 feet (QC): 5 Walk 10ft-Uneven Surface(QC): 5 Walk 50ft with 2 Turns (QC): 5 Walk 150 ft (QC): 5 Gait Level of Assist: 5 Gait Assistive Device: FWW Does the Pt use WC or Scooter?: No Stairs (FIM): 1 # of Steps: 1 1 Step (curb) (QC): 4 4 Steps (QC): 9 12 Steps (QC): 9 Stairs Level Of Assist: 4 Picking up an Object (QC): 4 PT Plan Problem List Problem List: Activity Tolerance, Functional Strength, Safety, Balance, Gait, Transfer, Bed Mobility, ROM Treatment/Plan Treatment Plan: Continue Plan of Care Treatment Plan: Bed Mobility, Concurrent Therapy, Education, Functional Activity Anjali, Functional Strength, Group Therapy, Gait, Safety, Therapeutic Exercise, Transfers Treatment Duration: Oct 09, 2018 Frequency: At least 5 of 7 days/Wk (IRF) Estimated Hrs Per Day: 1.5 hours per day Patient and/or Family Agrees t: Yes Safety Risks/Education Patient Education: Gait Training, Transfer Techniques, Correct Positioning, Safety Issues Teaching Recipient: Patient Teaching Methods: Demonstration, Discussion Response to Teaching: Reinforcement Needed Time/GCodes Time In: 1430 Time Out: 1450 Total Billed Treatment Time: 20 Total Billed Treatment 1 visit FA ALMA TERAN PT Sep 10, 2018 14:54
--- NOTE | 2018-09-10 15:20 | Occupational Therapy Eval ---
OT Evaluation-General/PLF Medical Diagnosis Admission Date Sep 10, 2018 at 11:22 Medical Diagnosis: debility/weakness Onset Date: Sep 10, 2018 Therapy Diagnosis Therapy Diagnosis: impaired ADLs and mobility Precautions Precautions/Isolations: Fall Prevention, Standard Precautions Weight Bear Status Weight Bearing Restriction: Weight Bearing/Tolerated WBS (Ord/Comment): noted L LE fasciotomy 2 years ago Referral Physician: Syd Referral Reason: Activity Tolerance, Self Care, Evaluation/Treatment, Strengthening/ROM Medical History Pertinent Medical History: CVA, DM Current History Direct admit from home secondary to multiple falls and inability for spouse to care for patient. Patient has been dependent on spouse since CVA. Reviewed History: Yes Social History Home: Single Level Current Living Status: Spouse Entry Into Home: Level Entry Steps Into Home: 2 ADL-Prior Level of Function Therapy Code Descriptions/Definitions Functional [place] Measure: 0=Not Assessed/NA 4=Minimal Assistance 1=Total Assistance 5=Supervision or Setup 2=Maximal Assistance 6=Modified [place] 3=Moderate Assistance 7=Complete [place] Therapy Quality Codes: 6 Independent with activity with or without an assistive device 5 Patient requires set up or clean up by helper. Patient completes activity by themselves 4 Supervision or touching assist (CGA). [place] provide cues , steadying assist 3 The helper provides less than half the effort to complete the activity 2 The helper provides more than half the effort to complete the activity 1 Dependent. The helper does all the effort to complete an activity 7 Patient refused to complete or attempt activity 9 The patient did not perform the activity before the current illness or injury 88 Not attempted due to Medical conditions or safety concerns Functional Abilities and Goals: Independent: Patient completed the activities by him/herself, with or without an assistive device, with no assistance from a helper. Needed Some Help: Patient needed partial assistance from another person to complete activities. Dependent: A helper completed the activities for the patient. Unknown: Not Applicable: Self Care: Independent Functional Cognition: Independent DME/Equipment: Bath Chair, Tub/Shower Drive Self: No OT Current Status Subjective pt sitting in recliner chair upon OT arrival in no apparent distress. pt agreed to OT evaluation/ treatment session. pt complains of no pain. pt requires increase timing to answer questions secondary to PLOF (pervious stroke) Pain Numeric Pain Scale: 0-No Pain Appearance noted small wound on L EAR . NSG aware. pt stated she know it is there but unsure the cause. Mental Status/Objective Patient Orientation: Person, Place, Time, Situation Current Glasses/Contacts: Yes Hearing Aids: Yes Dentures/Partials: No Hand Dominance: Right Upper Extremity ROM WFL Upper Extremity Coordination noted decrease visual perception skills leading to decrease coordination. Upper Extremity Sensation WFL Upper Extremity Strength 3+/5 MMT Jarred UE ADL-Treatment Eating (FIM): 5 (set up) Eating (QC): 4 Grooming (FIM): 4 (standing at sink CGA for safety/ balance ) Oral Hygiene (QC): 4 Bathing (FIM): 3 (required assist with buttocks, and Jarred feet ) Bathing Location: L Arm, R Arm, L Upper Leg, R Upper Leg, Chest, Abdomen, Perineal Area Shower/Bathe Self (QC): 2 Upper Body Dressing (FIM): 4 Upper Body Dressing (QC): 4 Lower Body Dressing (FIM): 2 (required assist for jarred LE. demo ability pull down past hips ) Lower Body Dressing (QC): 1 On/Off Footwear (QC): 1 Toileting (FIM): 3 (required assit with hygiene ) Toileting Hygiene (QC): 3 Transfers (B, C, W/C) (FIM): 4 (CGA for safety/ balacne with use of RW) Toilet/Commode Transfer (FIM): 4 (CGA for safety/ balacne with use of RW) Toilet Transfer (QC): 4 (CGA for safety/ balacne with use of RW) Shower Transfer (FIM): 4 (CGA for safety/ balacne with use of RW. pt VC to ambulate indise of walker for safety. ) Education OT Patient Education: Energy conservation, Modified ADL techniques, Progress toward Goal/Update tx plan, Purpose of tx/functional activities, Reviewed precautions, Safety issues, Transfer techniques Teaching Recipient: Patient Teaching Methods: Demonstration, Discussion Response to Teaching: Verbalize Understanding, Return Demonstration OT Short Term Goals Short Term Goals Time Frame: Sep 24, 2018 Eating(FIM): 6 Grooming(FIM): 5 Bathing(FIM): 5 Upper Body Dressing(FIM): 5 Lower Body Dressing(FIM): 5 Toileting(FIM): 5 Transfers (B,C,W/C) (FIM): 5 Toilet/Commode Transfer(FIM): 5 Tub Transfer(FIM): 5 Shower Transfer(FIM): 5 1=Demonstrate adherence to instructed precautions during ADL tasks. 2=Patient will verbalize/demonstrate understanding of assistive devices/modifications for ADL. 3=Patient will improve strength/tolerance for activity to enable patient to p erform ADL's. OT Snf Goals Print Color Operator Goals Time Frame: Oct 08, 2018 Eating (FIM): 6 Eating (QC): 6 Groomin Oral Hygiene (QC): 6 Bathing(FIM): 6 Bathing Location: L Arm, R Arm, L Upper Leg, R Upper Leg, L Lower Leg (including foot), R Lower Leg (including foot), Chest, Abdomen, Buttocks, Perineal Area Shower/Bathe Self (QC): 6 Upper Body Dressing(FIM): 6 Upper Body Dressing (QC): 6 Lower Body Dressing(FIM): 6 Lower Body Dressing (QC): 6 On/Off Footwear (QC): 6 Toileting(FIM): 6 Toileting Hygiene (QC): 6 Transfers (B,C,W/C) (FIM): 6 Toilet/Commode Transfer(FIM): 6 Toilet/Commode Transfer (QC): 6 Tub Transfer(FIM): 6 Shower Transfer(FIM): 6 Additional Goals: 1-Demonstrate ADL Tasks, 2-Verbalize Understanding, 3- ImproveStrength/Anjali 1=Demonstrate adherence to instructed precautions during ADL tasks. 2=Patient will verbalize/demonstrate understanding of assistive devices/modifications for ADL. 3=Patient will improve strength/tolerance for activity to enable patient to perform ADL's. OT Education/Plan Problem List/Assessment Assessment: Decreased Activ Tolerance, Decreased Safety Aware, Decreased UE Strength, Impaired Cognition, Impaired Coordination, Impaired Funct Balance, Impaired I ADL's, Impaired Self-Care Skills, Visual-Perceptual Deficit pt presents wit functional limitations affecting areas of ADLS with deficits in the above mention and : noted decrease visual perception, noted slight right sided neglect, and decrease dyn standing/ sitting balance. pt requires increased timing to respond during conversation/ express self. likely related to pervious CVA. Discharge Recommendations Plan/Recommendations: Continue POC Barriers to Progress cognition Treatment Plan/Plan of Care Patient would benefit from OT for education, treatment and training to promote independence in ADL's, mobility, safety and/or upper extremity function for ADL's. Plan of Care: ADL Retraining, Caregiver Training, Cognitive Retraining, Concurrent Therapy, Functional Mobility, Group Exercise/Act as Ind, UE Funct Exercise/Act, UE Neuromus Re-Ed/Coord, Visual/Perceptual Retrain Treatment Duration: Oct 08, 2018 Frequency: At least 5 of 7 days/Wk (IRF) Estimated Hrs Per Day: 1.5 hours per day Rehab Potential: Fair Time/GCodes Start Time: 13:00 Stop Time: 13:40 Billed Treatment Time EVM 15 minutes ADL 25 minutes, 2 units LADONNA LANGE OT Sep 10, 2018 15:19
[2018-09-10] MEDS: inSUlin ASPART (NovoLOG) 1 UNIT/0.01 ML (CHARGE PER UNIT) SC SCH ×2 (16:04→20:33)
--- NOTE | 2018-09-10 16:15 | ST Cognitive Linguistic Eval ---
Speech Evaluation-General Medical Diagnosis debility/weakness Onset Date: Sep 10, 2018 Therapy Diagnosis Therapy Diagnosis: Cognitive-communication Precautions Precautions/Isolations: Fall Prevention, Standard Precautions Referral Referring Physician: Dr. Velarde Medical History Pertinent Medical History: CVA, DM Reviewed History: Yes Social History Current Living Status: Spouse Speech PLF-Current Status Prior Level of Function The patient lived at home with her . She was independent for most of her daily needs. Subjective The patient was pleasant with the cognitive evaluation. Language Eval: Auditory Comprehends Simple Yes/No Ques: Functional Indent/Objects [place]: Functional Ident/Pics in [place]: Functional Follows 1-Step Commands: Mild Follows Complex Directions: Moderate Follows General Conversations: Functional Language Eval: Verbal Language Completes Spontaneous Greeting: Functional Produces Auto, Serial Info: Functional Imitates Simple Words/Phrases: Functional Word Finding: Mild Requests Basic Needs: Functional States Basic Personal Info: Functional Expresses Complex Ideas: Mild Objective Cognitive Domain Attention: WNL Memory: Mild Problem Solving: Mild Executive Functions: Mild Visuospatial Skills: Mild Composite Severity Rating: Mild Clock Drawing Severity Rating: Mild Objective Formal/Standardized Tests [facility] Status ([facility]) Results The patient scored 21/30, placing her in the Mild Neurocognitive Disorder range Oral Motor/Speech Production Within Functional Limits Impression The patient is a pleasant 72 year old female who was admitted to the ARU for strengthening and medical monitoring in order to return safely to her home. The patient was given the UMS for cognitive assessment with a score of 21/30, placing her in the MNCD range. The patient has had a previous stroke several years ago. She does exhibit residual deficits related to the past stroke. The patient will receive skilled ST for memory and problem solving deficits with focus on safety and independence. Communication/Social Cognition Comprehension: 5 Expression: 5 Social Interaction: 5 Problem Solvin Memory: 4 Speech Patient Assess Expression of Ideas/Wants: Exhibits (3) Understanding Verbal Content: Usually Understands (3) Brief Interview-Mental Status: Yes Repetition of Three Words: Three (3) Temporal Orientation: Year: Correct (3) Temporal Orientation: Month: Accurate within 5 days(2) Temporal Orientation: Day: Correct (1) Recall : Wear to say "Sock": Yes,after cueing (1) Recall : Color: No, could not recall (0) Recall : Bed: No, could not recall (0) Memory/Recall Ability: Current season, That he or she is in a hsp/hsp unit Speech Short Term Goals Short Term Goals Short Term Goals 1) The patient will complete memory exercises related to her daily needs with 90% accuracy given minimal verbal cues. 2) The patient will complete problem solving exercises related to her daily needs with 90% accuracy given minimal verbal cues. 3) The patient will complete simple 1-3 step directions related to her daily needs with 90% accuracy given minimal verbal cues. Speech Tin Tie Machine Operator Automatic Goals Tin Tie Machine Operator Automatic Goals The patient will complete cognitive function exercises in order to return home safely. Speech-Plan Patient/Family Goals Patient/Family Goals: The patient plans on returning home with her post rehab. Treatment Plan Speech Therapy Treatment Plan: Continue Plan of Care The patient will receive skilled ST for cognition. Treatment Duration: Sep 24, 2018 Frequency: 5 times per week Estimated Hrs Per Day: .5 hour per day Rehab Potential: Fair Barriers to Learning: Patient has residual effects of an old CVA as well as new onset deficits Pt/Family Agrees to Plan: Yes Safety Risks/Education Teaching Recipient: Patient Teaching Methods: Discussion Response to Teaching: Verbalize Understanding Education Topics Provided: Safety within her room and utilization of the call light as needed. Time Speech Therapy Time In: 15:55 Speech Therapy Time Out: 16:10 Total Billed Time: 15 Billed Treatment Time 1[address] ST Sep 10, 2018 16:14
[2018-09-10 17:54] VITALS: BP 158/92
--- NOTE | 2018-09-10 18:00 | NUR ---
POOR BALANCE AT TIMES. CONTINUES TO DENY PAIN. BED EXIT ALARM ON. DOES NOT USE CALL LIGHT, BUT CALLED OUT FOR NURSE.
[2018-09-10] MEDS: GABAPENTIN 100 MG (NEURONTIN) CAP PO SCH (20:33)
[2018-09-10] MEDS ORDERED: INSULIN GLARGINE HUM REC ANLOG 7 UNIT SQ SCH (21:00)
[2018-09-11] MEDS: MELATONIN 3 MG TABLET PO PRN ×2 (00:49→20:35)
[2018-09-11 05:01] VITALS: BP 160/75
[2018-09-11] MEDS: LEVOTHYROXINE 112 MCG (LEVOTHROID) TAB PO SCH (06:24)
[2018-09-11] MEDS: inSUlin ASPART (NovoLOG) 1 UNIT/0.01 ML (CHARGE PER UNIT) SC SCH ×4 (06:24→20:35)
[2018-09-11] MEDS: MULTIVIT W/MINERALS TAB (THERAGRAN M) PO SCH (06:24)
[2018-09-11] MEDS: FUROSEMIDE 40 MG (LASIX) TAB PO SCH (08:15)
[2018-09-11] MEDS: ATORVASTATIN 40 MG (LIPITOR) TABLET PO SCH (08:15)
[2018-09-11] MEDS: LOSARTAN 25 MG (COZAAR) TAB PO SCH (08:15)
[2018-09-11] MEDS: ASPIRIN E.C. 81 MG (ECOTRIN) TAB PO SCH (08:15)
[2018-09-11] MEDS: CLOPIDOGREL 75 MG (PLAVIX) TABLET PO SCH (08:15)
[2018-09-11] MEDS: SERTRALINE 50 MG (ZOLOFT) TABLET PO SCH (08:15)
[2018-09-11] MEDS ORDERED: NON-FORMULARY MEDICATION 1 EA EA (C,E,Zinc,Copper 11/Omega3s/Lut (Ocuvite Adult 50 Plus So PO SCH (09:00)
[2018-09-11] MEDS ORDERED: NON-FORMULARY MEDICATION 1 EA EA (Losartan Potassium 25 MG) PO SCH (09:00)
[2018-09-11] MEDS ORDERED: INSULIN GLARGINE HUM REC ANLOG 6 UNIT SC SCH (09:00)
--- NOTE | 2018-09-11 09:56 | Physical Therapy Daily Note ---
PT Daily Note-Current Subjective Pt asleep sitting up in bed upon arrival. Pt agrees to PT to use restroom. Pt is UNGA and needs repeated VC for hearing and confusion. Pain Location: No Pain Reported Mental Status Patient Orientation: Person, Confused Transfers Therapy Code Descriptions/Definitions Functional [place] Measure: 0=Not Assessed/NA 4=Minimal Assistance 1=Total Assistance 5=Supervision or Setup 2=Maximal Assistance 6=Modified [place] 3=Moderate Assistance 7=Complete [place] Therapy Quality Codes: 6 Independent with activity with or without an assistive device 5 Patient requires set up or clean up by helper. Patient completes activity by themselves 4 Supervision or touching assist (CGA). [place] provide cues , steadying assist 3 The helper provides less than half the effort to complete the activity 2 The helper provides more than half the effort to complete the activity 1 Dependent. The helper does all the effort to complete an activity 7 Patient refused to complete or attempt activity 9 The patient did not perform the activity before the current illness or injury 88 Not attempted due to Medical conditions or safety concerns Scootin Rollin Supine to/from Sit: 4 Sit to/from Stand: 4 Sit to Stand (QC): 4 Weight Bearing Right Lower Extremity: Right Full Weight Bearing Left Lower Extremity: Left Full Weight Bearing Gait Training Does the Patient Walk?: Yes Gait (FIM): 2 Distance (FIM): 1=up to 49 ft Distance: 15' Walk 10 feet (QC): 4 Gait Level of Assist: 4 Gait Persons Needed: 1 Gait Assistive Device: FWW Pt walks with slow gait and kyphotic posture. Exercises Seated Therapy Exercises: Ankle pumps, Long arc quads, Hip flexion, Kicking activity, Glut set Seated Reps: 15 Treatments Pt transfers from bed to standing then ambulates to restroom. After RURAL ELECTRIFICATION ENGINEER's assistance for donning & doffing brief and pants, pt rests in recliner. Pt completes Seated Ex in recliner then reclines to rest with all needs met including call light in hand. Assessment Current Status: Fair Progress Pt is confused about sequencing of completing tasks and forgets what she is doing in the middle of an EX, needing increased VC. PT Short Term Goals Short Term Goals Transfers (B,C,W/C) (FIM): 5 PT Spray Dyer Goals Retirement Goals PT Spray Dyer Goals Time Frame: Oct 09, 2018 Transfers (B,C,W/C) (FIM): 5 Sit to Lying (QC): 5 Lying-Sitting on Side/Bed(QC): 5 Sit to Stand (QC): 5 Rollin Roll Left to Right (QC): 5 Chair/Xbz-pz-Bixar Xfer(QC): 5 Car Transfer (QC): 5 Does the Patient Walk: Yes Gait (FIM): 5 Gait distance (FIM): 3=150 ft Distance: 175' Walk 10 feet (QC): 5 Walk 10ft-Uneven Surface(QC): 5 Walk 50ft with 2 Turns (QC): 5 Walk 150 ft (QC): 5 Gait Level of Assist: 5 Gait Assistive Device: FWW Does the Pt use WC or Scooter?: No Stairs (FIM): 1 # of Steps: 1 1 Step (curb) (QC): 4 4 Steps (QC): 9 12 Steps (QC): 9 Stairs Level Of Assist: 4 Picking up an Object (QC): 4 PT Plan Problem List Problem List: Activity Tolerance, Functional Strength, Safety, Balance, Gait, Transfer, Bed Mobility Treatment/Plan Treatment Plan: Continue Plan of Care Treatment Plan: Bed Mobility, Concurrent Therapy, Education, Functional Activity Anjali, Functional Strength, Group Therapy, Gait, Safety, Therapeutic Exercise, Transfers Treatment Duration: Oct 09, 2018 Frequency: At least 5 of 7 days/Wk (IRF) Estimated Hrs Per Day: 1.5 hours per day Patient and/or Family Agrees t: Yes Safety Risks/Education Patient Education: Transfer Techniques, Correct Positioning, Safety Issues Teaching Recipient: Patient Teaching Methods: Discussion Response to Teaching: Reinforcement Needed Time/GCodes Time In: 830 Time Out: 900 Total Billed Treatment Time: 30 Total Billed Treatment 1, FA (15m) & EX (15m) G Codes Necessary: TAMEKA Bates PTA Sep 11, 2018 09:56
--- NOTE | 2018-09-11 10:38 | Individualized Plan of Care ---
Individualized Plan of Care Rehab Nursing IPOC Order Admission Date Sep 10, 2018 at 11:22 Current Orders Orders Admission Order(Inpt,Obs,Sdc) (09/10/18 11:29) Vital Signs: Per Unit Policy ( ,16,00 (09/10/18 11:29) Oil Operator-Inpt Rehab Con (09/10/18 11:29) Rehab Nursing Orders-Ipoc (09/10/18 11:29) Physical Therapy Rehab Orders (09/10/18 11:29) Occupational Therapy Rehab Ord (09/10/18 11:29) Speech Therapy Rehab Orders (09/10/18 11:29) Intake & Output (09/10/18 11:29) Precautions (Aru) (09/10/18 11:29) Weekly Weight (Lbs) WEEK (09/10/18 11:29) Rehab-Intensity Of Therapy (09/10/18 11:29) Initiate Admission Nursing Pro .admission (09/10/18 11:29) Accucheck Achs ACHS (09/10/18 11:29) Insulin Aspart (Novolog) (Novolog (Charg (09/10/18 16:00) Cho 60g/M 1snack (16-2000 Felipe) (09/10/18 Lunch) Cbc With Automated Diff (09/10/18 12:02) Comprehensive Metabolic Panel (09/10/18 12:02) Acetaminophen Tablet (Tylenol Tablet) (09/10/18 12:15) Calcium Carbonate Chew Tablet (Antacid C (09/10/18 12:15) Diphenhydramine Tablet (Benadryl Tablet) (09/10/18 12:15) Docusate Sodium Capsule (Colace Capsule) (09/10/18 12:15) Loperamide Capsule (Imodium Capsule) (09/10/18 12:15) Melatonin Tablet (Melatonin Tablet) (09/10/18 12:15) Ondansetron Oral Dissolve Tab (Zofran (09/10/18 12:15) Aspirin Enteric Coated Tablet (Ecotrin T (09/11/18 09:00) Atorvastatin Tablet (Lipitor) (09/11/18 09:00) Clopidogrel Tablet (Plavix Tablet) (09/11/18 09:00) Diazepam Tablet (Valium Tablet) (09/10/18 13:15) Furosemide Tablet (Lasix Tablet) (09/11/18 09:00) Gabapentin Capsule/Tablet (Neurontin Cap (09/10/18 13:15) Levothyroxine Tablet (Synthroid Tablet) (09/11/18 06:30) Meclizine Tablet (Antivert Tablet) (09/10/18 13:15) Sertraline Tablet (Zoloft Tablet) (09/11/18 09:00) (Nf) C,E,Zinc,Copper 11/Rffrb8t/Lut (Ocu (09/11/18 09:00) (Nf) Insulin Glargine,Hum.Rec.Anlog (Yossi (09/11/18 09:00) (Nf) Insulin Glargine,Hum.Rec.Anlog (Yossi (09/10/18 21:00) (Nf) Losartan Potassium (09/11/18 09:00) Losartan Tablet (Cozaar Tablet) (09/11/18 09:00) Insulin Determir (Per Unit) (Levemir (Pe (09/10/18 21:00) Insulin Determir (Per Unit) (Levemir (Pe (09/11/18 09:00) Gabapentin Capsule/Tablet (Neurontin Cap (09/10/18 21:00) Therapeutic Multivitamin Tab (Vitamins, (09/11/18 07:00) Patient Visit (09/10/18 ) Functional Activities, Ea 15 (09/10/18 ) Patient Visit (09/10/18 ) Pt Eval Moderate Complexity (09/10/18 ) Functional Activities, Ea 15 (09/10/18 ) Exercise Therap, Ea 15 Min (09/10/18 ) Ambulate 08,12,20 (09/10/18 15:06) Sequential Compression Device 08,20 (09/10/18 15:06) Dvt/Vte Risk - Notifiy Physici 08 (09/10/18 15:06) Patient Visit (09/10/18 ) Speech Sound Lang Comp (09/10/18 ) Senna S Tablet (Senokot S Tablet) (09/11/18 10:45) Senna S Tablet (Senokot S Tablet) (09/11/18 21:00) Patient Visit (09/11/18 ) Functional Activities, Ea 15 (09/11/18 ) Exercise Therap, Ea 15 Min (09/11/18 ) Insulin Aspart (Novolog) (Novolog (Charg (09/11/18 11:15) Rehab Nursing Orders: Ongoing Assess. of Cognitive Status, Ongoing Assess. of Function Status, Bowel Management, Disease Management & Educaiton, Fall Prevention, Fluid/Electrolyte/Nutrition Mgmt, Medication Management & Education, Management of Risks & Complications, Management of Skin Intergrity, Nutrition Management, Pain Management, Patient/Family Support, Safety Management Intensity of Therapy to be met Patient to be seen: Min.3h per day/5 of 7d PT IPOC Problem List: Activity Tolerance, Functional Strength, Safety, Balance, Gait, Transfer, Bed Mobility Treatment Plan: Continue Plan of Care Bed Mobility, Concurrent Therapy, Education, Functional Activity Anjali, Functional Strength, Group Therapy, Gait, Safety, Therapeutic Exercise, Transfers Treatment Duration: Oct 09, 2018 Frequency: At least 5 of 7 days/Wk (IRF) Estimated Hrs Per Day: 1.5 hours per day OT IPOC Problems: Decreased Activ Tolerance, Decreased Safety Aware, Decreased UE Strength, Impaired Cognition, Impaired Coordination, Impaired Funct Balance, Impaired I ADL's, Impaired Self-Care Skills, Visual-Perceptual Deficit OT Treatment, Training and Edu: Yes OT Problems pt presents wit functional limitations affecting areas of ADLS with deficits in the above mention and : noted decrease visual perception, noted slight right sided neglect, and decrease dyn standing/ sitting balance. pt requires increased timing to respond during conversation/ express self. likely related to pervious CVA. Plan of Care: ADL Retraining, Caregiver Training, Cognitive Retraining, Concurrent Therapy, Functional Mobility, Group Exercise/Act as Ind, UE Funct Exercise/Act, UE Neuromus Re-Ed/Coord, Visual/Perceptual Retrain Treatment Duration: Oct 08, 2018 Frequency: At least 5 of 7 days/Wk (IRF) Estimated Hrs Per Day: 1.[address] IPOC Speech Therapy Treatment Plan: Continue Plan of Care Treatment Duration: Sep 24, 2018 Frequency: 5 times per week Estimated Hrs Per Day: .5 hour per day Oil Operator/Case Mgmt Oil Operator/Case Managemen: Discharge Planning Dietitian/Director Of Web Marketing Dietitian/Director Of Web Marketing to monitor nutritional status and make changes and/or recommendations as needed and work with speech pathology on dietary upgrades as the occur. Physician IPOC Medical Issues being managed closely and that require the 24 hour availability of a physician: Brittle diabetes and orthostatic hypotension with chronic dizziness and impulsivity with increased fall risk will require close monitoring of vital signs and stress fall prevention Medical Issues: Bowel/Bladder Function, DVT Prophylaxis, Falls Precautions, Fluid/Electrolyte/Nutrition Balance, Pain Management Brief Synthesis of Preadmission Screen, Post-Admission Evaluation, and Therapy Evaluations: Physical therapy will focus on ambulation with fall prevention and safety management Occupational Therapy will increase ADLs with safety and fall prevention Speech therapy will work on cognition and memory deficit Medical Prognosis: Good Anticipated Length of Stay: 7 days VERONICA GALVEZ DO Sep 11, 2018 10:38
--- NOTE | 2018-09-11 10:38 | PM&R Progress Note ---
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 She uses her walker and has been working with outpatient physical therapy at [facility] but has continued to have multiple falls most recently injuring and lacerating her left ear requiring sutures. Blood sugars have been somewhat controlled usual hemoglobin A1c is 8 but she does have labile blood pressure and blood sugar both causing difficulties with function at home. Her prior level of functioning is walking with a walker and needs help performing her ADLs by her and daughter. She does see Dr. Jacinto neurology who is been trying to work with her neuropathy placing her at more risk for falls. She is in need of fall prevention to decrease risk for further injury and strengthening and stamina building for ambulation and improve independent ADLs. Subjective/Events-last exam Patient settling in well and participating in therapy Reported feeling like her sugar is low but it is 152 Chronic dizziness is part of the autonomic dysfunction Bowel movement was 3 days ago so we will give more meds Slums score was 21/30 so vascular dementia confirmed a suspected in addition to severe presbycusis Updated and daughter on this fact Denied any significant pain Did not sleep real well Fall risk continues and she is very impulsive Bed alarm and chair alarm will be recommended Conferred with RN Reviewed therapy notes and speech therapy notes Review of Systems General: Fatigue Neurological: Weakness, Numbness, Incoordination, Confusion Objective Exam Vital Signs Vital Signs Date Time Temp Pulse Resp B/P (MAP) Pulse Ox O2 Delivery O2 Flow Rate FiO2 09/11/18 17:04 99.9 89 18 135/76 (95) 92 Room Air Capillary Refill : General Appearance: No Apparent Distress, WD/WN, Chronically ill, Other (frail, pale) HEENT: PERRL/EOMI, Normal ENT Inspection, Pharynx Normal, Moist Mucous Membranes Neck: Full Range of Motion, Normal Inspection, Non Tender, Supple Respiratory: Chest Non Tender, Lungs Clear, Normal Breath Sounds, No Accessory Muscle Use, No Respiratory Distress Cardiovascular: Regular Rate, Rhythm, No Edema, No Gallop, No JVD, No Murmur Gastrointestinal: Normal Bowel Sounds, No Organomegaly, No Pulsatile Mass, Non Tender, Soft Back: Normal Inspection, No CVA Tenderness, No Vertebral Tenderness Extremity: Normal Capillary Refill, Normal Inspection, Normal Range of Motion, Non Tender, No Calf Tenderness, No Pedal Edema Neurologic/Psychiatric: Alert, Oriented x3 (poor memory recall), Normal Mood/Affect, cleaner and presser II-XII Norm as Tested, Abnormal Gait, Disoriented (poor recall), Motor Weakness (generalized bilateral lower legs), Sensory Deficit (lower legs to feet) Skin: Normal Color, Warm/Dry Lymphatic: No Adenopathy Results/Procedures Lab Patient resulted labs reviewed. FIM Transfers Therapy Code Descriptions/Definitions Functional Tift Measure: 0=Not Assessed/NA 4=Minimal Assistance 1=Total Assistance 5=Supervision or Setup 2=Maximal Assistance 6=Modified Tift 3=Moderate Assistance 7=Complete Tift Therapy Quality Codes: 6 Independent with activity with or without an assistive device 5 Patient requires set up or clean up by helper. Patient completes activity by themselves 4 Supervision or touching assist (CGA). Carlos provide cues , steadying assist 3 The helper provides less than half the effort to complete the activity 2 The helper provides more than half the effort to complete the activity 1 Dependent. The helper does all the effort to complete an activity 7 Patient refused to complete or attempt activity 9 The patient did not perform the activity before the current illness or injury 88 Not attempted due to Medical conditions or safety concerns Transfers (B, C, W/C) (FIM): 4 (CGA for safety/ balacne with use of RW) Scootin Rollin Roll Left to Right (QC): 4 Supine to/from Sit: 4 Sit to/from Stand: 4 Sit to Lying (QC): 4 Sit to Stand (QC): 4 Chair/Nby-uy-Mkaoe Xfer(QC): 4 Bed to/from Chair: 4 Car Transfer (QC): 5 Gait Training Does the Patient Walk?: Yes Gait (FIM): 2 Distance (FIM): 1=up to 49 ft Distance: 15' Walk 10 feet (QC): 4 Walk 50 ft with 2 Turns(QC): 4 Walk 150 ft (QC): 4 Walking 10ft/uneven surface-QC: 4 Gait Level of Assist: 4 Gait Persons Needed: 1 Gait Assistive Device: FWW Stair Training Stairs (FIM): 1 #of Steps: 1 1 Step (curb) (QC): 3 4 Steps (QC): 9 12 Steps (QC): 9 Level of Assist: 3 Mental Status/Objective Comprehension: 5 Expression: 5 Social Interaction: 5 Problem Solvin Memory: 4 ADL-Treatment Feedin (set up) Eating (QC): 4 Groomin (standing at sink CGA for safety/ balance ) Oral Hygiene (QC): 4 Bathin (required assist with buttocks, and Adal feet ) Bathing Location: L Arm, R Arm, L Upper Leg, R Upper Leg, Chest, Abdomen, Perineal Area Shower/Bathe Self (QC): 2 Upper Extremity Dressin Upper Body Dressing (QC): 4 Lower Extremity Dressin (required assist for adal LE. demo ability pull down past hips ) Lower Body Dressing (QC): 1 On/Off Footwear (QC): 1 Toiletin (required assit with hygiene ) Toileting Hygiene (QC): 3 Toilet/Commode Transfer: 4 (CGA for safety/ balacne with use of RW) Toilet Transfer (QC): 4 (CGA for safety/ balacne with use of RW) Shower: 4 (CGA for safety/ balacne with use of RW. pt VC to ambulate indise of walker for safety. 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 recently assessed to be functioning well h/o DKA Depression Memory deficit confirmed vascular dementia on SLUMS score of Plan: Home meds Accuchecks SSI Check labs IRF protocols Updated family on dementia dx Monitor BP closely (1) Autonomic dysfunction with type 2 diabetes mellitus (2) TIA (transient ischemic attack) (3) Anxiety (4) Depression (5) DKA (diabetic ketoacidoses) (6) NPH (normal pressure hydrocephalus) (7) Hypothyroidism (8) Hypertension (9) Falls frequently (10) CVA (cerebral vascular accident) (11) Memory deficit (12) Myocardial infarct, old (13) Presbycusis of both ears (14) Diabetes mellitus, insulin dependent (IDDM), controlled (15) TRAILERS AND MOTOR HOMES SALESPERSON (ventriculoperitoneal) shunt status VERONICA GALVEZ DO Sep 11, 2018 10:38
[2018-09-11] MEDS ORDERED: SENNA W/DOCUSATE (SENOKOT S) TABLET PO ONE (10:45)
[2018-09-11 17:04] VITALS: BP 135/76
[2018-09-11] MEDS: SENNA W/DOCUSATE (SENOKOT S) TABLET PO SCH (20:35)
[2018-09-11] MEDS: GABAPENTIN 100 MG (NEURONTIN) CAP PO SCH (20:35)
[2018-09-12] MEDS: inSUlin ASPART (NovoLOG) 1 UNIT/0.01 ML (CHARGE PER UNIT) SC SCH ×4 (05:30→20:37)
[2018-09-12 05:36] VITALS: BP 165/75
[2018-09-12] MEDS: LEVOTHYROXINE 112 MCG (LEVOTHROID) TAB PO SCH (05:36)
[2018-09-12] MEDS: MULTIVIT W/MINERALS TAB (THERAGRAN M) PO SCH (05:36)
[2018-09-12] MEDS: CLOPIDOGREL 75 MG (PLAVIX) TABLET PO SCH (09:38)
[2018-09-12] MEDS: ATORVASTATIN 40 MG (LIPITOR) TABLET PO SCH (09:39)
[2018-09-12] MEDS: LOSARTAN 25 MG (COZAAR) TAB PO SCH (09:39)
[2018-09-12] MEDS: ASPIRIN E.C. 81 MG (ECOTRIN) TAB PO SCH (09:39)
[2018-09-12] MEDS: SENNA W/DOCUSATE (SENOKOT S) TABLET PO SCH ×2 (09:39→20:31)
[2018-09-12] MEDS: SERTRALINE 50 MG (ZOLOFT) TABLET PO SCH (09:39)
[2018-09-12] MEDS: FUROSEMIDE 40 MG (LASIX) TAB PO SCH (09:39)
--- NOTE | 2018-09-12 10:51 | PM&R Progress Note ---
Subjective HPI/CC On Admission Date Seen by Provider: Sep 12, 2018 Time Seen by Provider: 11:00 Chief complaint: Autonomic dysfunction causing multiple and frequent falls History of present illness: This is a 72-year-old white female clinic patient of mine for the past year who has a past medical history of labile and brittle diabetes with history of DKA, hypothyroidism, TIA/CVA, CAD, severe PVD and autonomic dysfunction due to diabetes who presents to the inpatient rehab facility due to multiple ER visits due to multiple and frequent falls. She uses her walker and has been working with outpatient physical therapy at [facility] but has continued to have multiple falls most recently injuring and lacerating her left ear requiring sutures. Blood sugars have been somewhat controlled usual hemoglobin A1c is 8 but she does have labile blood pressure and blood sugar both causing difficulties with function at home. Her prior level of functioning is walking with a walker and needs help performing her ADLs by her and daughter. She does see Dr. Jacinto neurology who is been trying to work with her neuropathy placing her at more risk for falls. She is in need of fall prevention to decrease risk for further injury and strengthening and stamina building for ambulation and improve independent ADLs. Subjective/Events-last exam Confusion noted yesterday by nurse but today she is more clear and improved overall Chronic dizziness is part of the autonomic dysfunction and complications from DM Bowel movement was 4 days ago so we will give more meds including suppository and enema if needed Slums score was 21/30 so vascular dementia confirmed a suspected in addition to severe presbycusis and we will start Aricept 5mg tonight for that Updated and daughter on dementia yesterday Denied any significant pain Did not sleep real well but nurses did not hear of report that occurred Fall risk continues and she is very impulsive Bed alarm and chair alarm will be recommended Conferred with RN Reviewed therapy notes and speech therapy notes Review of Systems General: Fatigue Neurological: Weakness, Numbness, Incoordination, Confusion Objective Exam Vital Signs Vital Signs Date Time Temp Pulse Resp B/P (MAP) Pulse Ox O2 Delivery O2 Flow Rate FiO2 09/12/18 08:20 Room Air 09/12/18 05:36 98.3 83 18 165/75 (105) 91 Capillary Refill : General Appearance: No Apparent Distress, WD/WN, Chronically ill, Other (frail, pale) HEENT: PERRL/EOMI, Normal ENT Inspection, Pharynx Normal, Moist Mucous Membranes Neck: Full Range of Motion, Normal Inspection, Non Tender, Supple Respiratory: Chest Non Tender, Lungs Clear, Normal Breath Sounds, No Accessory Muscle Use, No Respiratory Distress Cardiovascular: Regular Rate, Rhythm, No Edema, No Gallop, No JVD, No Murmur Gastrointestinal: Normal Bowel Sounds, No Organomegaly, No Pulsatile Mass, Non Tender, Soft Back: Normal Inspection, No CVA Tenderness, No Vertebral Tenderness Extremity: Normal Capillary Refill, Normal Inspection, Normal Range of Motion, Non Tender, No Calf Tenderness, No Pedal Edema Neurologic/Psychiatric: Alert, Oriented x3 (poor memory recall), Normal Mood/Affect, lumber press operator II-XII Norm as Tested, Abnormal Gait, Disoriented (poor recall), Motor Weakness (generalized bilateral lower legs), Sensory Deficit (lower legs to feet) Skin: Normal Color, Warm/Dry Lymphatic: No Adenopathy Results/Procedures Lab Patient resulted labs reviewed. FIM Transfers Therapy Code Descriptions/Definitions Functional Gaston Measure: 0=Not Assessed/NA 4=Minimal Assistance 1=Total Assistance 5=Supervision or Setup 2=Maximal Assistance 6=Modified Gaston 3=Moderate Assistance 7=Complete Gaston Therapy Quality Codes: 6 Independent with activity with or without an assistive device 5 Patient requires set up or clean up by helper. Patient completes activity by themselves 4 Supervision or touching assist (CGA). [place] provide cues , steadying assist 3 The helper provides less than half the effort to complete the activity 2 The helper provides more than half the effort to complete the activity 1 Dependent. The helper does all the effort to complete an activity 7 Patient refused to complete or attempt activity 9 The patient did not perform the activity before the current illness or injury 88 Not attempted due to Medical conditions or safety concerns Transfers (B, C, W/C) (FIM): 4 (CGA for safety/ balacne with use of RW) Scootin Rollin Roll Left to Right (QC): 4 Supine to/from Sit: 4 Sit to/from Stand: 4 Sit to Lying (QC): 4 Sit to Stand (QC): 4 Chair/Uwq-zz-Hqcsv Xfer(QC): 4 Bed to/from Chair: 4 Car Transfer (QC): 5 Gait Training Does the Patient Walk?: Yes Gait (FIM): 2 Distance (FIM): 1=up to 49 ft Distance: 15' Walk 10 feet (QC): 4 Walk 50 ft with 2 Turns(QC): 4 Walk 150 ft (QC): 4 Walking 10ft/uneven surface-QC: 4 Gait Level of Assist: 4 Gait Persons Needed: 1 Gait Assistive Device: FWW Stair Training Stairs (FIM): 1 #of Steps: 1 1 Step (curb) (QC): 3 4 Steps (QC): 9 12 Steps (QC): 9 Level of Assist: 3 Mental Status/Objective Comprehension: 5 Expression: 5 Social Interaction: 5 Problem Solvin Memory: 4 ADL-Treatment Feedin (set up) Eating (QC): 4 Groomin (standing at sink CGA for safety/ balance ) Oral Hygiene (QC): 4 Bathin (required assist with buttocks, and Adal feet ) Bathing Location: L Arm, R Arm, L Upper Leg, R Upper Leg, Chest, Abdomen, Perineal Area Shower/Bathe Self (QC): 2 Upper Extremity Dressin Upper Body Dressing (QC): 4 Lower Extremity Dressin (required assist for adal LE. demo ability pull down past hips ) Lower Body Dressing (QC): 1 On/Off Footwear (QC): 1 Toiletin (required assit with hygiene ) Toileting Hygiene (QC): 3 Toilet/Commode Transfer: 4 (CGA for safety/ balacne with use of RW) Toilet Transfer (QC): 4 (CGA for safety/ balacne with use of RW) Shower: 4 (CGA for safety/ balacne with use of RW. pt VC to ambulate indise of walker for safety. 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 recently assessed to be functioning well h/o DKA Depression Memory deficit confirmed vascular dementia on SLUMS score of Plan: Home meds Accuchecks SSI Check labs IRF protocols Updated family on dementia dx Monitor BP closely Aricept 5mg tonight (1) Autonomic dysfunction with type 2 diabetes mellitus (2) TIA (transient ischemic attack) (3) Anxiety (4) Depression (5) DKA (diabetic ketoacidoses) (6) NPH (normal pressure hydrocephalus) (7) Hypothyroidism (8) Hypertension (9) Falls frequently (10) CVA (cerebral vascular accident) (11) Memory deficit (12) Myocardial infarct, old (13) Presbycusis of both ears (14) Diabetes mellitus, insulin dependent (IDDM), controlled (15) GUIDE DOG INSTRUCTOR (ventriculoperitoneal) shunt status VERONICA GALVEZ DO Sep 12, 2018 10:51
[2018-09-12] MEDS ORDERED: BISACODYL 10 MG SUPP (DULCOLAX) PR ONE (11:15)
[2018-09-12] MEDS ORDERED: MINERAL OIL ENEMA 133 ML BTL PR NR (12:07)
[2018-09-12] MEDS ORDERED: BISACODYL 10 MG SUPP (DULCOLAX) ONE (13:27)
[2018-09-12 17:03] VITALS: BP 119/72
[2018-09-12] MEDS ORDERED: DONEPEZIL 10 MG (ARICEPT) TAB ONE (20:19)
[2018-09-12] MEDS: GABAPENTIN 100 MG (NEURONTIN) CAP PO SCH (20:32)
[2018-09-12] MEDS: MELATONIN 3 MG TABLET PO PRN (20:50)
[2018-09-12] MEDS: DONEPEZIL 5 MG (ARICEPT) TAB PO SCH (20:55)
--- NOTE | 2018-09-12 20:55 | NUR ---
New order received for Aricept 5 mg after pharmacy left. [facility]r[employer] Die Corrector [facility] Aricept split in half. Patient given 5 mg per order and the other 5 mg wasted per protocol in the med room.
[2018-09-13 05:08] VITALS: BP 170/83
[2018-09-13] MEDS: LEVOTHYROXINE 112 MCG (LEVOTHROID) TAB PO SCH (06:58)
[2018-09-13] MEDS: MULTIVIT W/MINERALS TAB (THERAGRAN M) PO SCH (06:58)
[2018-09-13] MEDS: inSUlin ASPART (NovoLOG) 1 UNIT/0.01 ML (CHARGE PER UNIT) SC SCH ×4 (07:29→20:28)
[2018-09-13 08:00] VITALS: BP 117/67
--- NOTE | 2018-09-13 08:30 | PM&R Progress Note ---
Subjective HPI/CC On Admission Date Seen by Provider: Sep 13, 2018 Time Seen by Provider: 08:30 Chief complaint: Autonomic dysfunction causing multiple and frequent falls History of present illness: This is a 72-year-old white female clinic patient of mine for the past year who has a past medical history of labile and brittle diabetes with history of DKA, hypothyroidism, TIA/CVA, CAD, severe PVD and autonomic dysfunction due to diabetes who presents to the inpatient rehab facility due to multiple ER visits due to multiple and frequent falls. She uses her walker and has been working with outpatient physical therapy at [facility] but has continued to have multiple falls most recently injuring and lacerating her left ear requiring sutures. Blood sugars have been somewhat controlled usual hemoglobin A1c is 8 but she does have labile blood pressure and blood sugar both causing difficulties with function at home. Her prior level of functioning is walking with a walker and needs help performing her ADLs by her and daughter. She does see Dr. Jacinto neurology who is been trying to work with her neuropathy placing her at more risk for falls. She is in need of fall prevention to decrease risk for further injury and strengthening and stamina building for ambulation and improve independent ADLs. Subjective/Events-last exam Left foot wound 1 cm in size will be assessed by wound care. BM yesterday on her own before meds given. She didn't recall having a BM yesterday. Her short term recall is moderate to severe deficient. Denies any pain. Thrilled that her will be discharged today. Blood sugar is very brittle since it is 522 today. Shifted sliding scale to B and will just give top dose if its becoming elevated since she is so brittle. Risk for hypoglycemia. Conferred with RN Reviewed therapy notes and speech therapy notes Review of Systems General: Fatigue Neurological: Confusion Objective Exam Vital Signs Vital Signs Date Time Temp Pulse Resp B/P (MAP) Pulse Ox O2 Delivery O2 Flow Rate FiO2 09/13/18 17:39 99.5 89 18 133/78 (96) 92 Room Air Capillary Refill : General Appearance: No Apparent Distress, WD/WN, Chronically ill, Other (frail, pale) HEENT: PERRL/EOMI, Normal ENT Inspection, Pharynx Normal, Moist Mucous Membranes Neck: Full Range of Motion, Normal Inspection, Non Tender, Supple Respiratory: Chest Non Tender, Lungs Clear, Normal Breath Sounds, No Accessory Muscle Use, No Respiratory Distress Cardiovascular: Regular Rate, Rhythm, No Edema, No Gallop, No JVD, No Murmur Gastrointestinal: Normal Bowel Sounds, No Organomegaly, No Pulsatile Mass, Non Tender, Soft Back: Normal Inspection, No CVA Tenderness, No Vertebral Tenderness Extremity: Normal Capillary Refill, Normal Inspection, Normal Range of Motion, Non Tender, No Calf Tenderness, No Pedal Edema Neurologic/Psychiatric: Alert, Oriented x3 (poor memory recall), Normal Mood/Affect, long term care administrator II-XII Norm as Tested, Abnormal Gait, Disoriented (poor recall), Motor Weakness (generalized bilateral lower legs), Sensory Deficit (lower legs to feet) Skin: Normal Color, Warm/Dry Lymphatic: No Adenopathy Results/Procedures Lab Patient resulted labs reviewed. FIM Transfers Therapy Code Descriptions/Definitions Functional [place] Measure: 0=Not Assessed/NA 4=Minimal Assistance 1=Total Assistance 5=Supervision or Setup 2=Maximal Assistance 6=Modified [place] 3=Moderate Assistance 7=Complete [place] Therapy Quality Codes: 6 Independent with activity with or without an assistive device 5 Patient requires set up or clean up by helper. Patient completes activity by themselves 4 Supervision or touching assist (CGA). [place] provide cues , steadying assist 3 The helper provides less than half the effort to complete the activity 2 The helper provides more than half the effort to complete the activity 1 Dependent. The helper does all the effort to complete an activity 7 Patient refused to complete or attempt activity 9 The patient did not perform the activity before the current illness or injury 88 Not attempted due to Medical conditions or safety concerns Transfers (B, C, W/C) (FIM): 4 (CGA for safety/ balacne with use of RW) Scootin Rollin Roll Left to Right (QC): 4 Supine to/from Sit: 4 Sit to/from Stand: 4 Sit to Lying (QC): 4 Sit to Stand (QC): 4 Chair/Fbk-gg-Lsplb Xfer(QC): 4 Bed to/from Chair: 4 Car Transfer (QC): 5 Gait Training Does the Patient Walk?: Yes Gait (FIM): 2 Distance (FIM): 1=up to 49 ft Distance: 15' Walk 10 feet (QC): 4 Walk 50 ft with 2 Turns(QC): 4 Walk 150 ft (QC): 4 Walking 10ft/uneven surface-QC: 4 Gait Level of Assist: 4 Gait Persons Needed: 1 Gait Assistive Device: FWW Stair Training Stairs (FIM): 1 #of Steps: 1 1 Step (curb) (QC): 3 4 Steps (QC): 9 12 Steps (QC): 9 Level of Assist: 3 Mental Status/Objective Comprehension: 5 Expression: 5 Social Interaction: 5 Problem Solvin Memory: 4 ADL-Treatment Feedin (set up) Eating (QC): 4 Groomin (standing at sink CGA for safety/ balance ) Oral Hygiene (QC): 4 Bathin (required assist with buttocks, and Adal feet ) Bathing Location: L Arm, R Arm, L Upper Leg, R Upper Leg, Chest, Abdomen, Perineal Area Shower/Bathe Self (QC): 2 Upper Extremity Dressin Upper Body Dressing (QC): 4 Lower Extremity Dressin (required assist for adal LE. demo ability pull down past hips ) Lower Body Dressing (QC): 1 On/Off Footwear (QC): 1 Toiletin (required assit with hygiene ) Toileting Hygiene (QC): 3 Toilet/Commode Transfer: 4 (CGA for safety/ balacne with use of RW) Toilet Transfer (QC): 4 (CGA for safety/ balacne with use of RW) Shower: 4 (CGA for safety/ balacne with use of RW. pt VC to ambulate indise of walker for safety. ) Assessment/Plan Assessment and Plan Assess & Plan/Chief Complaint Assessment: Autonomic dysfunction w/chronic dizziness and disequilibrium Multiple and frequent falls TIA hx CVA hx DM OOC HTN HLP Hypothyroidism NPH MUSIC STORE MANAGER shunts recently assessed to be functioning well h/o DKA Depression Memory deficit confirmed vascular dementia on SLUMS score of Plan: Home meds Accuchecks SSI Check labs IRF protocols Updated family on dementia dx Monitor BP closely Aricept 5mg tonight (1) Autonomic dysfunction with type 2 diabetes mellitus (2) TIA (transient ischemic attack) (3) Anxiety (4) Depression (5) DKA (diabetic ketoacidoses) (6) NPH (normal pressure hydrocephalus) (7) Hypothyroidism (8) Hypertension (9) Falls frequently (10) CVA (cerebral vascular accident) (11) Memory deficit (12) Myocardial infarct, old (13) Presbycusis of both ears (14) Diabetes mellitus, insulin dependent (IDDM), controlled (15) MUSIC STORE MANAGER (ventriculoperitoneal) shunt status VERONICA GALVEZ DO Sep 13, 2018 08:30
[2018-09-13] MEDS: FUROSEMIDE 40 MG (LASIX) TAB PO SCH (08:56)
[2018-09-13] MEDS: ATORVASTATIN 40 MG (LIPITOR) TABLET PO SCH (08:56)
[2018-09-13] MEDS: CLOPIDOGREL 75 MG (PLAVIX) TABLET PO SCH (08:56)
[2018-09-13] MEDS: SERTRALINE 50 MG (ZOLOFT) TABLET PO SCH (08:56)
[2018-09-13] MEDS: LOSARTAN 25 MG (COZAAR) TAB PO SCH (08:56)
[2018-09-13] MEDS: SENNA W/DOCUSATE (SENOKOT S) TABLET PO SCH ×2 (08:56→20:20)
[2018-09-13] MEDS: ASPIRIN E.C. 81 MG (ECOTRIN) TAB PO SCH (08:56)
[2018-09-13] MEDS ORDERED: inSUlin ASPART (NovoLOG) 1 UNIT/0.01 ML (CHARGE PER UNIT) SC SCH (11:00)
--- NOTE | 2018-09-13 11:00 | NUR ---
DR. GALVEZ NOTIFIED OF BLOOD SUGAR 522. ORDER TO CHANGE SSIP TO B AND USE TOP OF SCALE ONLY AND NO NEED TO NOTIFY DRGena BECAUSE SHE IS A BRITTLE DIABETIC.
--- NOTE | 2018-09-13 11:10 | NUR ---
DR. SINHA NOTIFIED OF WOUND CONSULT.
--- NOTE | 2018-09-13 11:26 | Physical Therapy Daily Note ---
PT Daily Note-Current Subjective Patient in bed pre tx, agrees to PT, has no complaints of pain. Patient needs to use the restroom and she gets her pants down and up with SBA. Appearance Patient on toilet post tx, needs to use the restroom again. Patient instructed to use the nurse call when done, nurse aide is sitting outside of room and notified that patient would be left on toilet. Mental Status Patient Orientation: Person, Confused Transfers Therapy Code Descriptions/Definitions Functional [place] Measure: 0=Not Assessed/NA 4=Minimal Assistance 1=Total Assistance 5=Supervision or Setup 2=Maximal Assistance 6=Modified [place] 3=Moderate Assistance 7=Complete [place] Therapy Quality Codes: 6 Independent with activity with or without an assistive device 5 Patient requires set up or clean up by helper. Patient completes activity by themselves 4 Supervision or touching assist (CGA). [place] provide cues , steadying assist 3 The helper provides less than half the effort to complete the activity 2 The helper provides more than half the effort to complete the activity 1 Dependent. The helper does all the effort to complete an activity 7 Patient refused to complete or attempt activity 9 The patient did not perform the activity before the current illness or injury 88 Not attempted due to Medical conditions or safety concerns Transfers (B, C, W/C) (FIM): 4 Scootin Rollin Supine to/from Sit: 5 Sit to/from Stand: 4 Bed to/from Chair: 4 Occasional cues for hand placement and safety. Weight Bearing Right Lower Extremity: Right Full Weight Bearing Left Lower Extremity: Left Full Weight Bearing Gait Training Gait (FIM): 2 Distance: 100'x2 Gait Level of Assist: 4 Gait Persons Needed: 1 Gait Assistive Device: FWW Short steps, poor heel strike and step through, tends to get walker too far forward. Very slow ambulation. Exercises Standing: Hip Abduction, Heel/toe raises, Marching, Mini squats Standing Reps: 15 LAQ alternating for 5 min NuStep Minutes: 15 NuStep Workload: 5 Treatments LE strengthening, bed mobility and transfers, ambulation Assessment Current Status: Fair Progress improving endurance, occasional rest break during activity due to fatigue PT Short Term Goals Short Term Goals Transfers (B,C,W/C) (FIM): 5 PT Audit Machine Operator Goals Audit Machine Operator Goals PT Audit Machine Operator Goals Time Frame: Oct 09, 2018 Transfers (B,C,W/C) (FIM): 5 Sit to Lying (QC): 5 Lying-Sitting on Side/Bed(QC): 5 Sit to Stand (QC): 5 Rollin Roll Left to Right (QC): 5 Chair/Nwh-pk-Derqc Xfer(QC): 5 Car Transfer (QC): 5 Does the Patient Walk: Yes Gait (FIM): 5 Gait distance (FIM): 3=150 ft Distance: 175' Walk 10 feet (QC): 5 Walk 10ft-Uneven Surface(QC): 5 Walk 50ft with 2 Turns (QC): 5 Walk 150 ft (QC): 5 Gait Level of Assist: 5 Gait Assistive Device: FWW Does the Pt use WC or Scooter?: No Stairs (FIM): 1 # of Steps: 1 1 Step (curb) (QC): 4 4 Steps (QC): 9 12 Steps (QC): 9 Stairs Level Of Assist: 4 Picking up an Object (QC): 4 PT Plan Problem List Problem List: Activity Tolerance, Functional Strength, Safety, Balance, Gait, Transfer, Bed Mobility Treatment/Plan Treatment Plan: Continue Plan of Care Treatment Plan: Bed Mobility, Concurrent Therapy, Education, Functional Activity Anjali, Functional Strength, Group Therapy, Gait, Safety, Therapeutic Exercise, Transfers Treatment Duration: Oct 09, 2018 Frequency: At least 5 of 7 days/Wk (IRF) Estimated Hrs Per Day: 1.5 hours per day Patient and/or Family Agrees t: Yes Safety Risks/Education Patient Education: Gait Training, Transfer Techniques, Correct Positioning, Safety Issues Teaching Recipient: Patient Teaching Methods: Demonstration, Discussion Response to Teaching: Reinforcement Needed Time/GCodes Time In: 1030 Time Out: 1130 Total Billed Treatment Time: 60 Total Billed Treatment 1 visit GT 15' FA 15' EX 30' ALMA BERGERON PT Sep 13, 2018 11:26
--- NOTE | 2018-09-13 11:29 | Occupational Ther Daily Note ---
OT Current Status-Daily Note Subjective Pt alert, lying in bed. Pt agrees to therapy. C/o of neck pain then states that it has been out of place for months and she hasn't got it taken care of. Mental Status/Objective Patient Orientation: Person, Place, Time, Situation Therapy Code Descriptions/Definitions Functional [place] Measure: 0=Not Assessed/NA 4=Minimal Assistance 1=Total Assistance 5=Supervision or Setup 2=Maximal Assistance 6=Modified [place] 3=Moderate Assistance 7=Complete [place] ADL-Treatment Declines shower, stating that she had shower yesterday and would like to only take one every other day. Pt has difficulty with problem solving in new environments and tasks. During grooming pt using toothpaste on comb and then attempted to comb hair. Then had difficulties finding toothbrush on sink. Pt has visual perception issues due to previous CVA. Ambulation with CGA using FWW and verbal cues for walker positioning, pt tends to drag L toe. Close SBA for toileting, CGA for toilet transfer. Therapy Code Descriptions/Definitions Functional [place] Measure: 0=Not Assessed/NA 4=Minimal Assistance 1=Total Assistance 5=Supervision or Setup 2=Maximal Assistance 6=Modified [place] 3=Moderate Assistance 7=Complete [place] Therapy Quality Codes: 6 Independent with activity with or without an assistive device 5 Patient requires set up or clean up by helper. Patient completes activity by themselves 4 Supervision or touching assist (CGA). [place] provide cues , steadying assist 3 The helper provides less than half the effort to complete the activity 2 The helper provides more than half the effort to complete the activity 1 Dependent. The helper does all the effort to complete an activity 7 Patient refused to complete or attempt activity 9 The patient did not perform the activity before the current illness or injury 88 Not attempted due to Medical conditions or safety concerns Grooming (FIM): 5 Oral Hygiene (QC): 5 On/Off Footwear (QC): 3 (Doffs over heel then requires assist to pull off foot and don over foot. Placement of shoes then pt able to slip foot into shoe.) Toileting (FIM): 5 Toileting Hygiene (QC): 4 Transfers (B, C, W/C) (FIM): 4 Toilet/Commode Transfer (FIM): 4 Toilet Transfer (QC): 4 Other Treatment Pt ambulated to therapy gym using FWW, CGA. Completed fine motor, sequencing, problem solving and visual perceptual tasks to increase skills and strength for daily functional tasks. Pt demonstrated good fine motor strength and sequencing. Pt requires verbal/physical cues for problem solving and visual perception tasks. After therapy, pt lying in bed with call light/phone in reach. All needs met in room. OT Short Term Goals Short Term Goals Time Frame: Sep 24, 2018 Eating(FIM): 6 Grooming(FIM): 5 Bathing(FIM): 5 Upper Body Dressing(FIM): 5 Lower Body Dressing(FIM): 5 Toileting(FIM): 5 Transfers (B,C,W/C) (FIM): 5 Toilet/Commode Transfer(FIM): 5 Tub Transfer(FIM): 5 Shower Transfer(FIM): 5 1=Demonstrate adherence to instructed precautions during ADL tasks. 2=Patient will verbalize/demonstrate understanding of assistive devices/modifications for ADL. 3=Patient will improve strength/tolerance for activity to enable patient to perform ADL's. OT Group Home Goals Group Home Goals Time Frame: Oct 08, 2018 Eating (FIM): 6 Eating (QC): 6 Groomin Oral Hygiene (QC): 6 Bathing(FIM): 6 Bathing Location: L Arm, R Arm, L Upper Leg, R Upper Leg, L Lower Leg (including foot), R Lower Leg (including foot), Chest, Abdomen, Buttocks, Perineal Area Shower/Bathe Self (QC): 6 Upper Body Dressing(FIM): 6 Upper Body Dressing (QC): 6 Lower Body Dressing(FIM): 6 Lower Body Dressing (QC): 6 On/Off Footwear (QC): 6 Toileting(FIM): 6 Toileting Hygiene (QC): 6 Transfers (B,C,W/C) (FIM): 6 Toilet/Commode Transfer(FIM): 6 Toilet/Commode Transfer (QC): 6 Tub Transfer(FIM): 6 Shower Transfer(FIM): 6 Additional Goals: 1-Demonstrate ADL Tasks, 2-Verbalize Understanding, 3- ImproveStrength/Anjali 1=Demonstrate adherence to instructed precautions during ADL tasks. 2=Patient will verbalize/demonstrate understanding of assistive d evices/modifications for ADL. 3=Patient will improve strength/tolerance for activity to enable patient to perform ADL's. OT Education/Plan Problem List/Assessment Assessment: Decreased Activ Tolerance, Decreased Safety Aware, Impaired Cognition, Impaired Funct Balance, Impaired Self-Care Skills pt presents wit functional limitations affecting areas of ADLS with deficits in the above mention and : noted decrease visual perception, noted slight right sided neglect, and decrease dyn standing/ sitting balance. pt requires increased timing to respond during conversation/ express self. likely related to pervious CVA. Discharge Recommendations Plan/Recommendations: Continue POC Treatment Plan/Plan of Care Patient would benefit from OT for education, treatment and training to promote independence in ADL's, mobility, safety and/or upper extremity function for ADL's. Plan of Care: ADL Retraining, Caregiver Training, Cognitive Retraining, Concurrent Therapy, Functional Mobility, Group Exercise/Act as Ind, UE Funct Exercise/Act, UE Neuromus Re-Ed/Coord, Visual/Perceptual Retrain Treatment Duration: Oct 08, 2018 Frequency: At least 5 of 7 days/Wk (IRF) Estimated Hrs Per Day: 1.5 hours per day Rehab Potential: Fair Time/GCodes Start Time: 09:00 Stop Time: 10:15 Total Time Billed (hr/min): 75 Billed Treatment Time 1 visit-ADL 3 (45 min) EX 2 (30 min) ANA JULIEN Sep 13, 2018 11:29
--- NOTE | 2018-09-13 13:30 | NUR ---
BLOOD SUGAR RECHECKED AND NOW 481.
--- NOTE | 2018-09-13 13:33 | Speech Therapy Daily Note ---
Speech Daily Progress Note Subjective Date Seen by Provider: Sep 13, 2018 Time Seen by Provider: 00:30 The patient was resting in her recliner after just finishing PT. Objective The patient completed a series of general information tasks with 75% accuracy given min to mod verbal cuing. Assessment Assessment Current Status: Fair Progress Treatment Plan Continue Plan of Care Communication Comprehension: 5 Expression: 5 Social Cognition Social Interaction: 5 Problem Solvin Memory: 4 Speech Short Term Goals Short Term Goals Short Term Goals 1) The patient will complete memory exercises related to her daily needs with 90% accuracy given minimal verbal cues. 2) The patient will complete problem solving exercises related to her daily needs with 90% accuracy given minimal verbal cues. 3) The patient will complete simple 1-3 step directions related to her daily needs with 90% accuracy given minimal verbal cues. Speech Mcfp Goals Mcfp Goals The patient will complete cognitive function exercises in order to return home safely. Speech-Plan Patient/Family Goals Patient/Family Goals: The patient plans to return home with her post rehab. Treatment Plan Speech Therapy Treatment Plan: Continue Plan of Care The patient is participating well with therapy. Treatment Duration: Sep 24, 2018 Frequency: 5 times per week Estimated Hrs Per Day: .5 hour per day Rehab Potential: Fair Barriers to Learning: Old affects of a CVA and current medical status Pt/Family Agrees to Plan: Yes Safety Risks/Education Teaching Recipient: Patient Teaching Methods: Discussion Response to Teaching: Verbalize Understanding Education Topics Provided: Safety and communication of her wants/needs. Time Speech Therapy Time In: 11:30 Speech Therapy Time Out: 12:00 Total Billed Time: 30 Billed Treatment Time 1[address] Sep 13, 2018 13:33
--- NOTE | 2018-09-13 14:30 | Physical Therapy Daily Note ---
PT Daily Note-Current Subjective Agrees to PT. "I should get up and walk, it is probably good for me." Transfers Therapy Code Descriptions/Definitions Functional [place] Measure: 0=Not Assessed/NA 4=Minimal Assistance 1=Total Assistance 5=Supervision or Setup 2=Maximal Assistance 6=Modified [place] 3=Moderate Assistance 7=Complete [place] Therapy Quality Codes: 6 Independent with activity with or without an assistive device 5 Patient requires set up or clean up by helper. Patient completes activity by themselves 4 Supervision or touching assist (CGA). [place] provide cues , steadying assist 3 The helper provides less than half the effort to complete the activity 2 The helper provides more than half the effort to complete the activity 1 Dependent. The helper does all the effort to complete an activity 7 Patient refused to complete or attempt activity 9 The patient did not perform the activity before the current illness or injury 88 Not attempted due to Medical conditions or safety concerns Transfers (B, C, W/C) (FIM): 4 (CGA with skilled cues for hand placement and safety.) Sit to stand x multiple reps for gait Weight Bearing Right Lower Extremity: Right Full Weight Bearing Left Lower Extremity: Left Full Weight Bearing Gait Training Does the Patient Walk?: Yes Gait (FIM): 4 Distance (FIM): 3=150 ft Distance: 150 ft x 6 reps. Gait Assistive Device: FWW CGA for safety with skilled cues for step length, foot clearance and upright posture. Pt able to correct with cues but returns to old pattern after a few steps; requires cues 75% of the time. Treatments Pt toileted x 2 during treatment session; CGA for toilet transfers and CGA as she stood at the sink to wash her hands. pt in bed post treatment with needs met. Assessment Current Status: Good Progress Pt requires heavy cues for safety and sequencing with gait and transfers. PT Short Term Goals Short Term Goals Transfers (B,C,W/C) (FIM): 5 PT Alf Goals Alf Goals PT Alf Goals Time Frame: Oct 09, 2018 Transfers (B,C,W/C) (FIM): 5 Sit to Lying (QC): 5 Lying-Sitting on Side/Bed(QC): 5 Sit to Stand (QC): 5 Rollin Roll Left to Right (QC): 5 Chair/Teb-oa-Tlwmx Xfer(QC): 5 Car Transfer (QC): 5 Does the Patient Walk: Yes Gait (FIM): 5 Gait distance (FIM): 3=150 ft Distance: 175' Walk 10 feet (QC): 5 Walk 10ft-Uneven Surface(QC): 5 Walk 50ft with 2 Turns (QC): 5 Walk 150 ft (QC): 5 Gait Level of Assist: 5 Gait Assistive Device: FWW Does the Pt use WC or Scooter?: No Stairs (FIM): 1 # of Steps: 1 1 Step (curb) (QC): 4 4 Steps (QC): 9 12 Steps (QC): 9 Stairs Level Of Assist: 4 Picking up an Object (QC): 4 PT Plan Problem List Problem List: Activity Tolerance, Functional Strength, Safety, Balance, Gait, Transfer, Bed Mobility Treatment/Plan Treatment Plan: Continue Plan of Care Treatment Plan: Bed Mobility, Concurrent Therapy, Education, Functional Activit y Anjali, Functional Strength, Group Therapy, Gait, Safety, Therapeutic Exercise, Transfers Treatment Duration: Oct 09, 2018 Frequency: At least 5 of 7 days/Wk (IRF) Estimated Hrs Per Day: 1.5 hours per day Patient and/or Family Agrees t: Yes Safety Risks/Education Patient Education: Transfer Techniques, Safety Issues Teaching Recipient: Patient Teaching Methods: Discussion Response to Teaching: Reinforcement Needed Time/GCodes Time In: 1330 Time Out: 1414 Total Billed Treatment Time: 44 Total Billed Treatment visit GT 44 ANA DIALLO PT Sep 13, 2018 14:30
--- NOTE | 2018-09-13 14:55 | NUR ---
MANUFACTURING ENGINEER ASSEMBLY met with patient to complete initial assessment; however, patient reports memory loss and difficulty answering assessment questions and requests information be obtained from spouse, Neal. Per Neal the patient and spouse reside in a one level home in [place], [place]. The home has 3 steps at the entrance with railing; however, patient typically utilizes the crotch entrance which has 2 steps without railing. Spouse assist patient in entering and exiting home. Patient admitted to ARU from home with debility. Spouse reports patient has had several falls recently and continues to gradually become weaker. Patient utilized a front-wheeled walker with all ambulation at home and required assistance with all ADLs. Spouse reports patient's physical and mental function have declined since her heart attack last August. Spouse is hopeful that ARU will help patient regain strength. PCP identified as Dr. Velarde, neurologist is Dr. Jacinto, job press feeder Dr. Travis and grading clerk is Dr. Souza. Primary contact identified as Neal at [phone] (h) or [phone] (c) and secondary contact as daughter, Karissa at [phone](h) or [phone](c); however, cell phones typically do not have legal secretary receptionist in [place], preferred method via home phone. Insurance verified as Medicare and [employer] with prescription coverage. Preferred pharmacy as [facility] in [place]. ELEMENTARY INSTRUCTIONAL COACH reviewed typical ARU length of stay and weekly team conferences, spouse expresses no concerns at this time. ELEMENTARY INSTRUCTIONAL COACH will continue to follow
[2018-09-13 17:39] VITALS: BP 133/78
[2018-09-13] MEDS: DONEPEZIL 5 MG (ARICEPT) TAB PO SCH (20:19)
[2018-09-13] MEDS: MELATONIN 3 MG TABLET PO PRN (20:20)
[2018-09-13] MEDS: GABAPENTIN 100 MG (NEURONTIN) CAP PO SCH (20:20)
--- NOTE | 2018-09-13 20:46 | Wound Care Assessment ---
Wound Care Assessment Date Seen by Provider: Sep 13, 2018 Time Seen by Provider: 18:40 Chief Complaint Lesion on dorsum of foot HPI The patient had a previous injury to this area from a dressing, and now it has resolved. Full consult not done. Smoking Status: Never a Smoker Recreational Drug Use: No Alcohol Use: Denies Use Exam Vital Signs Date Time Temp Pulse Resp B/P (MAP) Pulse Ox O2 Delivery O2 Flow Rate FiO2 09/13/18 17:39 99.5 89 18 133/78 (96) 92 Room Air Capillary Refill : Results Laboratory Tests 09/13/18 04:50: Glucometer 78 09/13/18 10:50: Glucometer 522*H 09/13/18 13:28: Glucometer 481*H 09/13/18 15:28: Glucometer 269H 09/13/18 20:25: Glucometer 62L Assessment/Plan/Dx 1. Resolved lesion of foot. Plan: Will see as needed. BHAVNA SINHA MD Sep 13, 2018 20:46
[2018-09-14 05:09] VITALS: BP 159/65
[2018-09-14] MEDS: LEVOTHYROXINE 112 MCG (LEVOTHROID) TAB PO SCH (05:33)
[2018-09-14] MEDS ORDERED: inSUlin ASPART (NovoLOG) 1 UNIT/0.01 ML (CHARGE PER UNIT) SC SCH (06:00)
[2018-09-14] MEDS: inSUlin ASPART (NovoLOG) 1 UNIT/0.01 ML (CHARGE PER UNIT) SC SCH ×4 (06:02→20:34)
[2018-09-14] MEDS: MULTIVIT W/MINERALS TAB (THERAGRAN M) PO SCH (06:34)
--- NOTE | 2018-09-14 08:00 | NUR ---
PATIENT'S STATES HE HAS HANDLED HIS 'S BLOOD SUGARS AND INSULIN A LONG TIME AND KNOWS HOW MUCH INSULIN SHE SHOULD GET. DR. GALVEZ OKAYS PATIENT TO GET HOME DOSING OF NOVOLOG AND LEVEMIR WITH ADJUSTING INSULIN TO HIS DISCRETION.
--- NOTE | 2018-09-14 09:07 | PM&R Progress Note ---
Subjective HPI/CC On Admission Date Seen by Provider: Sep 14, 2018 Time Seen by Provider: 08:30 Chief complaint: Autonomic dysfunction causing multiple and frequent falls History of present illness: This is a 72-year-old white female clinic patient of mine for the past year who has a past medical history of labile and brittle diabetes with history of DKA, hypothyroidism, TIA/CVA, CAD, severe PVD and autonomic dysfunction due to diabetes who presents to the inpatient rehab facility due to multiple ER visits due to multiple and frequent falls. She uses her walker and has been working with outpatient physical therapy at [facility] but has continued to have multiple falls most recently injuring and lacerating her left ear requiring sutures. Blood sugars have been somewhat controlled usual hemoglobin A1c is 8 but she does have labile blood pressure and blood sugar both causing difficulties with function at home. Her prior level of functioning is walking with a walker and needs help performing her ADLs by her and daughter. She does see Dr. Jacinto neurology who is been trying to work with her neuropathy placing her at more risk for falls. She is in need of fall prevention to decrease risk for further injury and strengthening and stamina building for ambulation and improve independent ADLs. Subjective/Events-last exam The scab was scraped off of her right foot without any complications. The manages her insulin because it is brittle so we will go off her home dosing relying on her for that guidance since she is so brittle. Will need follow up with Dr. Willis Endocrinology at [facility] in the future. Had a BM yesterday I started Aricept to help with her memory and she is very pleased about that No falls reported but still working through fall prevention No other significant problems Conferred with RN Reviewed therapy notes Review of Systems General: Fatigue Neurological: Weakness, Numbness, Incoordination, Confusion Objective Exam Vital Signs Vital Signs Date Time Temp Pulse Resp B/P (MAP) Pulse Ox O2 Delivery O2 Flow Rate FiO2 09/14/18 17:03 98.2 87 20 131/73 (92) 94 Room Air Capillary Refill : General Appearance: No Apparent Distress, WD/WN, Chronically ill, Other (frail, pale) HEENT: PERRL/EOMI, Normal ENT Inspection, Pharynx Normal, Moist Mucous Membranes Neck: Full Range of Motion, Normal Inspection, Non Tender, Supple Respiratory: Chest Non Tender, Lungs Clear, Normal Breath Sounds, No Accessory Muscle Use, No Respiratory Distress Cardiovascular: Regular Rate, Rhythm, No Edema, No Gallop, No JVD, No Murmur Gastrointestinal: Normal Bowel Sounds, No Organomegaly, No Pulsatile Mass, Non Tender, Soft Back: Normal Inspection, No CVA Tenderness, No Vertebral Tenderness Extremity: Normal Capillary Refill, Normal Inspection, Normal Range of Motion, Non Tender, No Calf Tenderness, No Pedal Edema Neurologic/Psychiatric: Alert, Oriented x3 (poor memory recall), Normal Mood/Affect, medical technologist generalist II-XII Norm as Tested, Abnormal Gait, Disoriented (poor recall), Motor Weakness (generalized bilateral lower legs), Sensory Deficit (lower legs to feet) Skin: Normal Color, Warm/Dry Lymphatic: No Adenopathy Results/Procedures Lab Patient resulted labs reviewed. FIM Transfers Therapy Code Descriptions/Definitions Functional [place] Measure: 0=Not Assessed/NA 4=Minimal Assistance 1=Total Assistance 5=Supervision or Setup 2=Maximal Assistance 6=Modified [place] 3=Moderate Assistance 7=Complete [place] Therapy Quality Codes: 6 Independent with activity with or without an assistive device 5 Patient requires set up or clean up by helper. Patient completes activity by themselves 4 Supervision or touching assist (CGA). [place] provide cues , steadying assist 3 The helper provides less than half the effort to complete the activity 2 The helper provides more than half the effort to complete the activity 1 Dependent. The helper does all the effort to complete an activity 7 Patient refused to complete or attempt activity 9 The patient did not perform the activity before the current illness or injury 88 Not attempted due to Medical conditions or safety concerns Transfers (B, C, W/C) (FIM): 4 (CGA with skilled cues for hand placement and safety.) Scootin Rollin Roll Left to Right (QC): 4 Supine to/from Sit: 5 Sit to/from Stand: 4 Sit to Lying (QC): 4 Sit to Stand (QC): 4 Chair/Kjj-mz-Oukqx Xfer(QC): 4 Bed to/from Chair: 4 Car Transfer (QC): 5 Gait Training Does the Patient Walk?: Yes Gait (FIM): 4 Distance (FIM): 3=150 ft Distance: 150 ft x 6 reps. Walk 10 feet (QC): 4 Walk 50 ft with 2 Turns(QC): 4 Walk 150 ft (QC): 4 Walking 10ft/uneven surface-QC: 4 Gait Level of Assist: 4 Gait Persons Needed: 1 Gait Assistive Device: FWW Stair Training Stairs (FIM): 1 #of Steps: 1 1 Step (curb) (QC): 3 4 Steps (QC): 9 12 Steps (QC): 9 Level of Assist: 3 Mental Status/Objective Comprehension: 5 Expression: 5 Social Interaction: 5 Problem Solvin Memory: 4 ADL-Treatment Feedin (set up) Eating (QC): 4 Groomin Oral Hygiene (QC): 5 Bathin (required assist with buttocks, and Adal feet ) Bathing Location: L Arm, R Arm, L Upper Leg, R Upper Leg, Chest, Abdomen, Perineal Area Shower/Bathe Self (QC): 2 Upper Extremity Dressin Upper Body Dressing (QC): 4 Lower Extremity Dressin (required assist for adal LE. demo ability pull down past hips ) Lower Body Dressing (QC): 1 On/Off Footwear (QC): 3 (Doffs over heel then requires assist to pull off foot and don over foot. Placement of shoes then pt able to slip foot into shoe.) Toiletin Toileting Hygiene (QC): 4 Toilet/Commode Transfer: 4 Toilet Transfer (QC): 4 Shower: 4 (CGA for safety/ balacne with use of RW. pt VC to ambulate indise of walker for safety. ) Assessment/Plan Assessment and Plan Assess & Plan/Chief Complaint Assessment: Autonomic dysfunction w/chronic dizziness and disequilibrium Multiple and frequent falls TIA hx CVA hx DM OOC HTN HLP Hypothyroidism NPH PATTERN ILLUSTRATOR shunts recently assessed to be functioning well h/o DKA Depression Memory deficit confirmed vascular dementia on SLUMS score of started on Aricept during this admit Plan: Home meds Accuchecks SSI Check labs IRF protocols Updated family on dementia dx Monitor BP closely Aricept 5mg to be maintained (1) Autonomic dysfunction with type 2 diabetes mellitus (2) TIA (transient ischemic attack) (3) Anxiety (4) Depression (5) DKA (diabetic ketoacidoses) (6) NPH (normal pressure hydrocephalus) (7) Hypothyroidism (8) Hypertension (9) Falls frequently (10) CVA (cerebral vascular accident) (11) Memory deficit (12) Myocardial infarct, old (13) Presbycusis of both ears (14) Diabetes mellitus, insulin dependent (IDDM), controlled (15) PATTERN ILLUSTRATOR (ventriculoperitoneal) shunt status VERONICA GALVEZ DO Sep 14, 2018 09:06
[2018-09-14] MEDS: SENNA W/DOCUSATE (SENOKOT S) TABLET PO SCH ×2 (09:15→20:41)
[2018-09-14] MEDS: CLOPIDOGREL 75 MG (PLAVIX) TABLET PO SCH (09:15)
[2018-09-14] MEDS: SERTRALINE 50 MG (ZOLOFT) TABLET PO SCH (09:16)
[2018-09-14] MEDS: ASPIRIN E.C. 81 MG (ECOTRIN) TAB PO SCH (09:16)
[2018-09-14] MEDS: LOSARTAN 25 MG (COZAAR) TAB PO SCH (09:16)
[2018-09-14] MEDS: ATORVASTATIN 40 MG (LIPITOR) TABLET PO SCH (09:16)
[2018-09-14] MEDS: FUROSEMIDE 40 MG (LASIX) TAB PO SCH (09:16)
--- NOTE | 2018-09-14 10:25 | NUR ---
Pastoral care visit.
--- NOTE | 2018-09-14 10:40 | Occupational Ther Daily Note ---
OT Current Status-Daily Note Subjective Pt in bed, agrees to treatment. Pt has no c/o pain during session. Mental Status/Objective Therapy Code Descriptions/Definitions Functional [place] Measure: 0=Not Assessed/NA 4=Minimal Assistance 1=Total Assistance 5=Supervision or Setup 2=Maximal Assistance 6=Modified [place] 3=Moderate Assistance 7=Complete [place] ADL-Treatment Pt declined shower, states she doesn't have any clean clothes. Would like to wait until tomorrow to shower. Supine to sit with SBA. Gait to restroom with FWW. Transfer to toilet with CGA and cues for safety. Uses grab bar for balance. Pt able to pull pants down and complete toileting hygiene. Pt doffed pants and Depends with SBA. Required min assist to change Depends. Pt required assist to thread bilateral LE into pant legs. Stood with CGA for balance. Donned slip on shoes with minimal assistance. Pt stood at sink to complete grooming tasks. Pt washed hands and face with SBA. Brushed teeth and combed hair with SBA. Seated rest break taken after standing task. Increased time for ADLs. Therapy Code Descriptions/Definitions Functional [place] Measure: 0=Not Assessed/NA 4=Minimal Assistance 1=Total Assistance 5=Supervision or Setup 2=Maximal Assistance 6=Modified [place] 3=Moderate Assistance 7=Complete [place] Therapy Quality Codes: 6 Independent with activity with or without an assistive device 5 Patient requires set up or clean up by helper. Patient completes activity by themselves 4 Supervision or touching assist (CGA). [place] provide cues , steadying assist 3 The helper provides less than half the effort to complete the activity 2 The helper provides more than half the effort to complete the activity 1 Dependent. The helper does all the effort to complete an activity 7 Patient refused to complete or attempt activity 9 The patient did not perform the activity before the current illness or injury 88 Not attempted due to Medical conditions or safety concerns Grooming (FIM): 5 Oral Hygiene (QC): 4 Other Treatment Gait to therapy gym with FWW, slow pace. Cues for safety. Pt completed fine motor, sequencing, and problem solving tasks to increase skills and strength for daily activities. Pt able to complete fine motor tasks without assist, but requires increased time. Pt has difficulty at times with sequencing and problem solving, requiring skilled cues for task completion. Pt performed sit to stand x5 trials to increase strength and safety for mobility. Pt requires skilled cues for hand placement and safety. Pt returned to room, sitting in chair with needs met, spouse present, and chair alarm in place after session. OT Short Term Goals Short Term Goals Time Frame: Sep 24, 2018 Eating(FIM): 6 Grooming(FIM): 5 Bathing(FIM): 5 Upper Body Dressing(FIM): 5 Lower Body Dressing(FIM): 5 Toileting(FIM): 5 Transfers (B,C,W/C) (FIM): 5 Toilet/Commode Transfer(FIM): 5 Tub Transfer(FIM): 5 Shower Transfer(FIM): 5 1=Demonstrate adherence to instructed precautions during ADL tasks. 2=Patient will verbalize/demonstrate understanding of assistive device s/modifications for ADL. 3=Patient will improve strength/tolerance for activity to enable patient to perform ADL's. OT Penitentiary Goals Economics Department Chair Goals Time Frame: Oct 08, 2018 Eating (FIM): 6 Eating (QC): 6 Groomin Oral Hygiene (QC): 6 Bathing(FIM): 6 Bathing Location: L Arm, R Arm, L Upper Leg, R Upper Leg, L Lower Leg (includi ng foot), R Lower Leg (including foot), Chest, Abdomen, Buttocks, Perineal Area Shower/Bathe Self (QC): 6 Upper Body Dressing(FIM): 6 Upper Body Dressing (QC): 6 Lower Body Dressing(FIM): 6 Lower Body Dressing (QC): 6 On/Off Footwear (QC): 6 Toileting(FIM): 6 Toileting Hygiene (QC): 6 Transfers (B,C,W/C) (FIM): 6 Toilet/Commode Transfer(FIM): 6 Toilet/Commode Transfer (QC): 6 Tub Transfer(FIM): 6 Shower Transfer(FIM): 6 Additional Goals: 1-Demonstrate ADL Tasks, 2-Verbalize Understanding, 3- ImproveStrength/Anjali 1=Demonstrate adherence to instructed precautions during ADL tasks. 2=Patient will verbalize/demonstrate understanding of assistive devices/modifications for ADL. 3=Patient will improve strength/tolerance for activity to enable patient to perform ADL's. OT Education/Plan Discharge Recommendations Plan/Recommendations: Continue POC Treatment Plan/Plan of Care Patient would benefit from OT for education, treatment and training to promote independence in ADL's, mobility, safety and/or upper extremity function for ADL's. Plan of Care: ADL Retraining, Caregiver Training, Cognitive Retraining, Concurrent Therapy, Functional Mobility, Group Exercise/Act as Ind, UE Funct Exercise/Act, UE Neuromus Re-Ed/Coord, Visual/Perceptual Retrain Treatment Duration: Oct 08, 2018 Frequency: At least 5 of 7 days/Wk (IRF) Estimated Hrs Per Day: 1.5 hours per day Rehab Potential: Fair Time/GCodes Start Time: 09:30 Stop Time: 10:45 Total Time Billed (hr/min): 75 Billed Treatment Time 1 visit, ADLx3(35minutes), EXx3(40minutes) DILLAN JOYCE OT Sep 14, 2018 10:40
--- NOTE | 2018-09-14 10:57 | Speech Therapy Daily Note ---
Speech Daily Progress Note Subjective Date Seen by Provider: Sep 14, 2018 Time Seen by Provider: 00:30 The patient was pleasant and cooperative with memory exercises. Her was present for the entire session. Objective The patient completed a series of problem solving tasks related to her daily needs with 80% accuracy given decreased cues. Assessment Assessment Current Status: Good Progress Treatment Plan Continue Plan of Care Communication Comprehension: 5 Expression: 5 Social Cognition Social Interaction: 5 Problem Solvin Memory: 4 Speech Short Term Goals Short Term Goals Short Term Goals 1) The patient will complete memory exercises related to her daily needs with 90% accuracy given minimal verbal cues. 2) The patient will complete problem solving exercises related to her daily needs with 90% accuracy given minimal verbal cues. 3) The patient will complete simple 1-3 step directions related to her daily needs with 90% accuracy given minimal verbal cues. Speech Adult Basic Education Manager Goals Prison Goals The patient will complete cognitive function exercises in order to return home safely. Speech-Plan Patient/Family Goals Patient/Family Goals: The patient plans on returning home with her post rehab. Treatment Plan Speech Therapy Treatment Plan: Continue Plan of Care The patient is progressing as a result of skilled ST services. Treatment Duration: Sep 24, 2018 Frequency: 5 times per week Estimated Hrs Per Day: .5 hour per day Rehab Potential: Fair Barriers to Learning: The patient has deficits for memory and problems solving. Pt/Family Agrees to Plan: Yes Safety Risks/Education Teaching Recipient: Patient, Significant Other Teaching Methods: Discussion Response to Teaching: Verbalize Understanding Education Topics Provided: Safety and communication for her daily needs. Time Speech Therapy Time In: 08:30 Speech Therapy Time Out: 09:00 Total Billed Time: 30 Billed Treatment Time 1L[address]PE[address] Sep 14, 2018 10:57
--- NOTE | 2018-09-14 11:45 | Physical Therapy Daily Note ---
PT Daily Note-Current Subjective Patient in recliner pre tx, agrees to PT, has no complaints of pain. Appearance Patient in recliner post tx with nurse call, phone, tray, all needs met. Chair alarm on and in the room. Mental Status Patient Orientation: Person, Confused Transfers Therapy Code Descriptions/Definitions Functional [place] Measure: 0=Not Assessed/NA 4=Minimal Assistance 1=Total Assistance 5=Supervision or Setup 2=Maximal Assistance 6=Modified [place] 3=Moderate Assistance 7=Complete [place] Therapy Quality Codes: 6 Independent with activity with or without an assistive device 5 Patient requires set up or clean up by helper. Patient completes activity by themselves 4 Supervision or touching assist (CGA). [place] provide cues , steadying assist 3 The helper provides less than half the effort to complete the activity 2 The helper provides more than half the effort to complete the activity 1 Dependent. The helper does all the effort to complete an activity 7 Patient refused to complete or attempt activity 9 The patient did not perform the activity before the current illness or injury 88 Not attempted due to Medical conditions or safety concerns Transfers (B, C, W/C) (FIM): 4 Sit to/from Stand: 4 Bed to/from Chair: 4 CGA, cues for hand placement and safety during sit to stand and transfers. Weight Bearing Right Lower Extremity: Right Full Weight Bearing Left Lower Extremity: Left Full Weight Bearing Gait Training Gait (FIM): 4 Distance: 150'x2, 100' Gait Level of Assist: 4 Gait Persons Needed: 1 Gait Assistive Device: FWW Slow, tends to keep walker too far in front of her, feet get outside of walker when turning. Cues for positioning and safety. Exercises Standing: Hip Abduction, Heel/toe raises, Marching, Mini squats Standing Reps: 15 LAQ alternating for 5 min, sit to stand from chair 2 sets of 10 NuStep Minutes: 15 NuStep Workload: 4 Treatments LE strengthening, transfers, ambulation Assessment Current Status: Fair Progress improving endurance, confused PT Short Term Goals Short Term Goals Transfers (B,C,W/C) (FIM): 5 PT [place] Goals [place] Goals PT Skilled Nursing Goals Time Frame: Oct 09, 2018 Transfers (B,C,W/C) (FIM): 5 Sit to Lying (QC): 5 Lying-Sitting on Side/Bed(QC): 5 Sit to Stand (QC): 5 Rollin Roll Left to Right (QC): 5 Chair/Ldy-bg-Kmrnn Xfer(QC): 5 Car Transfer (QC): 5 Does the Patient Walk: Yes Gait (FIM): 5 Gait distance (FIM): 3=150 ft Distance: 175' Walk 10 feet (QC): 5 Walk 10ft-Uneven Surface(QC): 5 Walk 50ft with 2 Turns (QC): 5 Walk 150 ft (QC): 5 Gait Level of Assist: 5 Gait Assistive Device: FWW Does the Pt use WC or Scooter?: No Stairs (FIM): 1 # of Steps: 1 1 Step (curb) (QC): 4 4 Steps (QC): 9 12 Steps (QC): 9 Stairs Level Of Assist: 4 Picking up an Object (QC): 4 PT Plan Problem List Problem List: Activity Tolerance, Functional Strength, Safety, Balance, Gait, Transfer, Bed Mobility Treatment/Plan Treatment Plan: Continue Plan of Care Treatment Plan: Bed Mobility, Concurrent Therapy, Education, Functional Activity Anjali, Functional Strength, Group Therapy, Gait, Safety, Therapeutic Exercise, Transfers Treatment Duration: Oct 09, 2018 Frequency: At least 5 of 7 days/Wk (IRF) Estimated Hrs Per Day: 1.5 hours per day Patient and/or Family Agrees t: Yes Safety Risks/Education Patient Education: Gait Training, Transfer Techniques, Correct Positioning, Safety Issues Teaching Recipient: Patient Teaching Methods: Demonstration, Discussion Response to Teaching: Reinforcement Needed Time/GCodes Time In: 1045 Time Out: 1145 Total Billed Treatment Time: 60 Total Billed Treatment 1 visit GT 30' EX 30' ALMA BERGERON PT Sep 14, 2018 11:45
--- NOTE | 2018-09-14 14:47 | Physical Therapy Daily Note ---
PT Daily Note-Current Subjective Patient and spouse agree to PT. Mental Status Patient Orientation: Confused Transfers Therapy Code Descriptions/Definitions Functional [place] Measure: 0=Not Assessed/NA 4=Minimal Assistance 1=Total Assistance 5=Supervision or Setup 2=Maximal Assistance 6=Modified [place] 3=Moderate Assistance 7=Complete [place] Therapy Quality Codes: 6 Independent with activity with or without an assistive device 5 Patient requires set up or clean up by helper. Patient completes activity by themselves 4 Supervision or touching assist (CGA). [place] provide cues , steadying assist 3 The helper provides less than half the effort to complete the activity 2 The helper provides more than half the effort to complete the activity 1 Dependent. The helper does all the effort to complete an activity 7 Patient refused to complete or attempt activity 9 The patient did not perform the activity before the current illness or injury 88 Not attempted due to Medical conditions or safety concerns Transfers (B, C, W/C) (FIM): 4 Scootin Sit to/from Stand: 4 Sit to Stand (QC): 4 Weight Bearing Right Lower Extremity: Right Full Weight Bearing Left Lower Extremity: Left Full Weight Bearing Gait Training Does the Patient Walk?: Yes Gait (FIM): 4 Distance (FIM): 3=150 ft Distance: 250' x 2 Walk 10 feet (QC): 4 Walk 50 ft with 2 Turns(QC): 4 Walk 150 ft (QC): 4 Gait Level of Assist: 4 Gait Assistive Device: FWW extended UE's with FWW use and noted left LE lag due to old CVA Exercises Seated Therapy Exercises: Long arc quads Seated Reps: 15 NuStep Minutes: 12 NuStep Workload: 2 Assessment Patient improving with treatment plan. She is able to toilet self without difficulty. PT Short Term Goals Short Term Goals Transfers (B,C,W/C) (FIM): 5 PT Refrigerator Room Clerk Goals Detention Goals PT Refrigerator Room Clerk Goals Time Frame: Oct 09, 2018 Transfers (B,C,W/C) (FIM): 5 Sit to Lying (QC): 5 Lying-Sitting on Side/Bed(QC): 5 Sit to Stand (QC): 5 Rollin Roll Left to Right (QC): 5 Chair/Neo-pr-Hhfbf Xfer(QC): 5 Car Transfer (QC): 5 Does the Patient Walk: Yes Gait (FIM): 5 Gait distance (FIM): 3=150 ft Distance: 175' Walk 10 feet (QC): 5 Walk 10ft-Uneven Surface(QC): 5 Walk 50ft with 2 Turns (QC): 5 Walk 150 ft (QC): 5 Gait Level of Assist: 5 Gait Assistive Device: FWW Does the Pt use WC or Scooter?: No Stairs (FIM): 1 # of Steps: 1 1 Step (curb) (QC): 4 4 Steps (QC): 9 12 Steps (QC): 9 Stairs Level Of Assist: 4 Picking up an Object (QC): 4 PT Plan Treatment/Plan Treatment Plan: Continue Plan of Care Treatment Plan: Bed Mobility, Concurrent Therapy, Education, Functional Activity Anjali, Functional Strength, Group Therapy, Gait, Safety, Therapeutic Exercise, Transfers Treatment Duration: Oct 09, 2018 Frequency: At least 5 of 7 days/Wk (IRF) Estimated Hrs Per Day: 1.5 hours per day Patient and/or Family Agrees t: Yes Time/GCodes Time In: 1320 Time Out: 1350 Total Billed Treatment Time: 30 Total Billed Treatment 1 visit EX 16 min GT 14 min SONIA DAN PT Sep 14, 2018 14:47
[2018-09-14 17:03] VITALS: BP 131/73
[2018-09-14] MEDS: DONEPEZIL 5 MG (ARICEPT) TAB PO SCH (20:41)
[2018-09-14] MEDS: GABAPENTIN 100 MG (NEURONTIN) CAP PO SCH (20:41)
--- NOTE | 2018-09-14 20:41 | NUR ---
ACCUCHECK 116, DR. GALVEZ NOTIFIED, NEW ORDER TO HOLD LEVEMIR 7 UNITS TONIGHT.
[2018-09-14] MEDS: MELATONIN 3 MG TABLET PO PRN (21:42)
[2018-09-15] MEDS: LEVOTHYROXINE 112 MCG (LEVOTHROID) TAB PO SCH (05:14)
[2018-09-15 05:35] VITALS: BP 144/62
[2018-09-15] MEDS ORDERED: inSUlin ASPART (NovoLOG) 1 UNIT/0.01 ML (CHARGE PER UNIT) SC SCH (06:00)
--- NOTE | 2018-09-15 06:00 | NUR ---
New order from Dr. Velarde via phone: Abide by SSI A NovoLog, max dose 8 units regardless of elevated reading. Monitor elevated readings only.
[2018-09-15] MEDS: inSUlin ASPART (NovoLOG) 1 UNIT/0.01 ML (CHARGE PER UNIT) SC SCH ×5 (06:06→21:01)
[2018-09-15] MEDS ORDERED: inSUlin ASPART (NovoLOG) 1 UNIT/0.01 ML (CHARGE PER UNIT) ONE (06:26)
[2018-09-15] MEDS: MULTIVIT W/MINERALS TAB (THERAGRAN M) PO SCH (06:35)
[2018-09-15 07:52] VITALS: BP 124/73
[2018-09-15] MEDS: SENNA W/DOCUSATE (SENOKOT S) TABLET PO SCH ×2 (08:00→21:00)
[2018-09-15] MEDS: SERTRALINE 50 MG (ZOLOFT) TABLET PO SCH (08:00)
[2018-09-15] MEDS: ATORVASTATIN 40 MG (LIPITOR) TABLET PO SCH (08:00)
[2018-09-15] MEDS: FUROSEMIDE 40 MG (LASIX) TAB PO SCH (08:00)
[2018-09-15] MEDS: LOSARTAN 25 MG (COZAAR) TAB PO SCH (08:00)
[2018-09-15] MEDS: ASPIRIN E.C. 81 MG (ECOTRIN) TAB PO SCH (08:00)
[2018-09-15] MEDS: CLOPIDOGREL 75 MG (PLAVIX) TABLET PO SCH (08:00)
--- NOTE | 2018-09-15 11:59 | PM&R Progress Note ---
Subjective HPI/CC On Admission Date Seen by Provider: Sep 15, 2018 Time Seen by Provider: 10:00 Chief complaint: Autonomic dysfunction causing multiple and frequent falls History of present illness: This is a 72-year-old white female clinic patient of mine for the past year who has a past medical history of labile and brittle diabetes with history of DKA, hypothyroidism, TIA/CVA, CAD, severe PVD and autonomic dysfunction due to diabetes who presents to the inpatient rehab facility due to multiple ER visits due to multiple and frequent falls. She uses her walker and has been working with outpatient physical therapy at [facility] but has continued to have multiple falls most recently injuring and lacerating her left ear requiring sutures. Blood sugars have been somewhat controlled usual hemoglobin A1c is 8 but she does have labile blood pressure and blood sugar both causing difficulties with function at home. Her prior level of functioning is walking with a walker and needs help performing her ADLs by her and daughter. She does see Dr. Jacinto neurology who is been trying to work with her neuropathy placing her at more risk for falls. She is in need of fall prevention to decrease risk for further injury and strengthening and stamina building for ambulation and improve independent ADLs. Subjective/Events-last exam Pt had a good night, blood sugars are very well controlled and so brittle that we are modifying the sliding scale insulin A with Novolog. Cognition is an issue and constantly needs cues. Decreasing falls and working on safety prevention. Bowels are moving. Denies any pain. Cough is improved since cold is resolving. Conferred with RN. Reviewed therapy notes. Review of Systems General: Fatigue Neurological: Weakness, Numbness, Incoordination, Confusion Objective Exam Vital Signs Vital Signs Date Time Temp Pulse Resp B/P (MAP) Pulse Ox O2 Delivery O2 Flow Rate FiO2 09/15/18 17:48 97.8 86 18 164/72 (102) 96 Room Air Capillary Refill : General Appearance: No Apparent Distress, WD/WN, Chronically ill, Other (frail, pale) HEENT: PERRL/EOMI, Normal ENT Inspection, Pharynx Normal, Moist Mucous Membranes Neck: Full Range of Motion, Normal Inspection, Non Tender, Supple Respiratory: Chest Non Tender, Lungs Clear, Normal Breath Sounds, No Accessory Muscle Use, No Respiratory Distress Cardiovascular: Regular Rate, Rhythm, No Edema, No Gallop, No JVD, No Murmur Gastrointestinal: Normal Bowel Sounds, No Organomegaly, No Pulsatile Mass, Non Tender, Soft Back: Normal Inspection, No CVA Tenderness, No Vertebral Tenderness Extremity: Normal Capillary Refill, Normal Inspection, Normal Range of Motion, Non Tender, No Calf Tenderness, No Pedal Edema Neurologic/Psychiatric: Alert, Oriented x3 (poor memory recall), Normal Moo d/Affect, ceo and founder II-XII Norm as Tested, Abnormal Gait, Disoriented (poor recall), Motor Weakness (generalized bilateral lower legs), Sensory Deficit (lower legs to feet) Skin: Normal Color, Warm/Dry Lymphatic: No Adenopathy Results/Procedures Lab Patient resulted labs reviewed. FIM Transfers Therapy Code Descriptions/Definitions Functional [place] Measure: 0=Not Assessed/NA 4=Minimal Assistance 1=Total Assistance 5=Supervision or Setup 2=Maximal Assistance 6=Modified [place] 3=Moderate Assistance 7=Complete [place] Therapy Quality Codes: 6 Independent with activity with or without an assistive device 5 Patient requires set up or clean up by helper. Patient completes activity by themselves 4 Supervision or touching assist (CGA). [place] provide cues , steadying jaylen t 3 The helper provides less than half the effort to complete the activity 2 The helper provides more than half the effort to complete the activity 1 Dependent. The helper does all the effort to complete an activity 7 Patient refused to complete or attempt activity 9 The patient did not perform the activity before the current illness or injury 88 Not attempted due to Medical conditions or safety concerns Transfers (B, C, W/C) (FIM): 4 Scootin Rollin Roll Left to Right (QC): 4 Supine to/from Sit: 5 Sit to/from Stand: 4 Sit to Lying (QC): 4 Sit to Stand (QC): 4 Chair/Quk-kr-Cfutb Xfer(QC): 4 Bed to/from Chair: 4 Car Transfer (QC): 5 Gait Training Does the Patient Walk?: Yes Gait (FIM): 4 Distance (FIM): 3=150 ft Distance: 250' x 2 Walk 10 feet (QC): 4 Walk 50 ft with 2 Turns(QC): 4 Walk 150 ft (QC): 4 Walking 10ft/uneven surface-QC: 4 Gait Level of Assist: 4 Gait Persons Needed: 1 Gait Assistive Device: FWW Wheelchair Training Does the Pt Use a Wheelchair?: No Stair Training Stairs (FIM): 1 #of Steps: 1 1 Step (curb) (QC): 3 4 Steps (QC): 9 12 Steps (QC): 9 Level of Assist: 3 Mental Status/Objective Comprehension: 5 Expression: 5 Social Interaction: 5 Problem Solvin Memory: 4 ADL-Treatment Feedin (set up) Eating (QC): 4 Groomin Oral Hygiene (QC): 4 Bathin (required assist with buttocks, and Adal feet ) Bathing Location: L Arm, R Arm, L Upper Leg, R Upper Leg, Chest, Abdomen, Perineal Area Shower/Bathe Self (QC): 2 Upper Extremity Dressin Upper Body Dressing (QC): 4 Lower Extremity Dressin (required assist for adal LE. demo ability pull down past hips ) Lower Body Dressing (QC): 1 On/Off Footwear (QC): 3 (Doffs over heel then requires assist to pull off foot and don over foot. Placement of shoes then pt able to slip foot into shoe.) Toiletin Toileting Hygiene (QC): 4 Toilet/Commode Transfer: 4 Toilet Transfer (QC): 4 Shower: 4 (CGA for safety/ balacne with use of RW. pt VC to ambulate indise of walker for safety. ) Assessment/Plan Assessment and Plan Assess & Plan/Chief Complaint Assessment: Autonomic dysfunction w/chronic dizziness and disequilibrium Multiple and frequent falls TIA hx CVA hx DM OOC HTN HLP Hypothyroidism NPH MEDICAL TECHNOLOGIST MICROBIOLOGY shunts recently assessed to be functioning well h/o DKA Depression Memory deficit confirmed vascular dementia on SLUMS score of 30 started on Aricept during this admit Plan: Home meds Accuchecks SSI Check labs IRF protocols Updated family on dementia dx Monitor BP closely Aricept 5mg to be maintained Fall prevention (1) Autonomic dysfunction with type 2 diabetes mellitus (2) TIA (transient ischemic attack) (3) Anxiety (4) Depression (5) DKA (diabetic ketoacidoses) (6) NPH (normal pressure hydrocephalus) (7) Hypothyroidism (8) Hypertension (9) Falls frequently (10) CVA (cerebral vascular accident) (11) Memory deficit (12) Myocardial infarct, old (13) Presbycusis of both ears (14) Diabetes mellitus, insulin dependent (IDDM), controlled (15) MEDICAL TECHNOLOGIST MICROBIOLOGY (ventriculoperitoneal) shunt status VERONICA GALVEZ DO Sep 15, 2018 11:59
--- NOTE | 2018-09-15 13:58 | Physical Therapy Daily Note ---
PT Daily Note-Current Subjective Pt agreeable to PT session. Reports she has not pain, just feeling very tired today, feeling like it is more tired than usual, kelsie in legs Pain Numeric Pain Scale: 0-No Pain Appearance Pt sitting up in recliner upon arrival, awake and alert. Pt requesting and assisted to bathroom during tx session. At end of session, pt in bed, per pt request, HOB slightly elevated, call light, pone and bedside table within reach Mental Status Patient Orientation: Person, Place, Time, Eyes Open, Situation Transfers Therapy Code Descriptions/Definitions Functional [place] Measure: 0=Not Assessed/NA 4=Minimal Assistance 1=Total Assistance 5=Supervision or Setup 2=Maximal Assistance 6=Modified [place] 3=Moderate Assistance 7=Complete [place] Therapy Quality Codes: 6 Independent with activity with or without an assistive device 5 Patient requires set up or clean up by helper. Patient completes activity by themselves 4 Supervision or touching assist (CGA). [place] provide cues , steadying assist 3 The helper provides less than half the effort to complete the activity 2 The helper provides more than half the effort to complete the activity 1 Dependent. The helper does all the effort to complete an activity 7 Patient refused to complete or attempt activity 9 The patient did not perform the activity before the current illness or injury 88 Not attempted due to Medical conditions or safety concerns Transfers (B, C, W/C) (FIM): 4 Scootin Rollin Supine to/from Sit: 5 Sit to/from Stand: 5 Bed to/from Chair: 5 CGA provided for safety, Pt requiring verb instruction throughout tx session for safety and hand placement during sit to and from stand transition Weight Bearing Right Lower Extremity: Right Full Weight Bearing Left Lower Extremity: Left Full Weight Bearing Gait Training Does the Patient Walk?: Yes Gait (FIM): 4 Distance (FIM): 3=150 ft Distance: >500 x2 Gait Level of Assist: 4 (CGA with gait belt provided for safety) Gait Persons Needed: 1 Gait Assistive Device: FWW verb inst provided to maintain proper and safe distance from walker, slightly flexed trunk posture able to correct slightly and briefly with instruction, although requiring re instruction, fatigue in LE's with gait distance requiring sitting rest break Stair Training Stair Training: Handrails/: 2 handrails Stairs (FIM): 4 (CGA and min verb inst) #of Steps: 8 Stairs: Pattern: Step to Level of Assist: 4 unsteady at times due to difficulty clearing heal when descending stairs Exercises Supine Ex: Ankle pumps, Quad Set, Rolling, Glut sets, Lower trunk rotation, Heel Slides, Short Arc Quads, Scooting, Straight leg raise, Hip abd/add Supine Reps: 10 (BLE's simultaneously to incorporate core mm strengthening) Seated Therapy Exercises: Ankle pumps, Sit to stand, Long arc quads, Hip flexion, Hamstring Curls, Hip abd/add Seated Reps: 20 NuStep Minutes: 15 NuStep Workload: 5 (seat 4, arms 11) Treatments bed mobility, transfers, safety, gait, activity, tolerance, balance, stairs, functional mobility, strengthening, bathroom Assessment requiring several sitting rest breaks due to c/o increased tiredness in LE's and fatigue PT Short Term Goals Short Term Goals Transfers (B,C,W/C) (FIM): 5 PT Crucible Packer Goals Crucible Packer Goals PT Retirement Goals Time Frame: Oct 09, 2018 Transfers (B,C,W/C) (FIM): 5 Sit to Lying (QC): 5 Lying-Sitting on Side/Bed(QC): 5 Sit to Stand (QC): 5 Rollin Roll Left to Right (QC): 5 Chair/Asr-yi-Cqahb Xfer(QC): 5 Car Transfer (QC): 5 Does the Patient Walk: Yes Gait (FIM): 5 Gait distance (FIM): 3=150 ft Distance: 175' Walk 10 feet (QC): 5 Walk 10ft-Uneven Surface(QC): 5 Walk 50ft with 2 Turns (QC): 5 Walk 150 ft (QC): 5 Gait Level of Assist: 5 Gait Assistive Device: FWW Does the Pt use WC or Scooter?: No Stairs (FIM): 1 # of Steps: 1 1 Step (curb) (QC): 4 4 Steps (QC): 9 12 Steps (QC): 9 Stairs Level Of Assist: 4 Picking up an Object (QC): 4 PT Plan Treatment/Plan Treatment Plan: Continue Plan of Care Treatment Plan: Bed Mobility, Concurrent Therapy, Education, Functional Activity Anjali, Functional Strength, Group Therapy, Gait, Safety, Therapeutic Exercise, Transfers Treatment Duration: Oct 09, 2018 Frequency: At least 5 of 7 days/Wk (IRF) Estimated Hrs Per Day: 1.5 hours per day Patient and/or Family Agrees t: Yes Safety Risks/Education Patient Education: Gait Training, Transfer Techniques, Steps, Safety Issues Teaching Recipient: Patient Teaching Methods: Demonstration, Discussion Response to Teaching: Verbalize Understanding, Return Demonstration, Reinforcement Needed Time/GCodes Time In: 930 Time Out: 1045 Total Billed Treatment Time: 75 Total Billed Treatment 1 visit, GT x2 units, EX x2 units, FA x1 unit BRANDY GATES TELEPHONE CLEANER Sep 15, 2018 13:58
[2018-09-15 17:48] VITALS: BP 164/72
[2018-09-15] MEDS: DONEPEZIL 5 MG (ARICEPT) TAB PO SCH (21:00)
[2018-09-15] MEDS: MELATONIN 3 MG TABLET PO PRN (21:00)
[2018-09-15] MEDS: GABAPENTIN 100 MG (NEURONTIN) CAP PO SCH (21:00)
[2018-09-16 05:27] VITALS: BP 138/72
[2018-09-16] MEDS: inSUlin ASPART (NovoLOG) 1 UNIT/0.01 ML (CHARGE PER UNIT) SC SCH ×4 (06:10→21:03)
[2018-09-16] MEDS: MULTIVIT W/MINERALS TAB (THERAGRAN M) PO SCH (06:33)
[2018-09-16] MEDS: LEVOTHYROXINE 112 MCG (LEVOTHROID) TAB PO SCH (06:33)
[2018-09-16 08:00] VITALS: BP 123/70
[2018-09-16] MEDS: FUROSEMIDE 40 MG (LASIX) TAB PO SCH (08:02)
[2018-09-16] MEDS: LOSARTAN 25 MG (COZAAR) TAB PO SCH (08:02)
[2018-09-16] MEDS: SENNA W/DOCUSATE (SENOKOT S) TABLET PO SCH ×2 (08:02→21:02)
[2018-09-16] MEDS: CLOPIDOGREL 75 MG (PLAVIX) TABLET PO SCH (08:02)
[2018-09-16] MEDS: SERTRALINE 50 MG (ZOLOFT) TABLET PO SCH (08:02)
[2018-09-16] MEDS: ASPIRIN E.C. 81 MG (ECOTRIN) TAB PO SCH (08:02)
[2018-09-16] MEDS: ATORVASTATIN 40 MG (LIPITOR) TABLET PO SCH (08:02)
--- NOTE | 2018-09-16 08:30 | NUR ---
Dr. Velarde to floor. New order for Albuterol TX TID and I/S to bedside.
--- NOTE | 2018-09-16 08:49 | Occupational Ther Daily Note ---
OT Current Status-Daily Note Subjective Pt sleeping in bed, woke to name. Pt agrees to therapy. No c/o pain. Mental Status/Objective Patient Orientation: Person, Place, Time, Situation Therapy Code Descriptions/Definitions Functional [place] Measure: 0=Not Assessed/NA 4=Minimal Assistance 1=Total Assistance 5=Supervision or Setup 2=Maximal Assistance 6=Modified [place] 3=Moderate Assistance 7=Complete [place] ADL-Treatment Pt agrees to shower. Supine to sitting with HOB slightly elevated and using bed rails, SBA. Ambulated to bathroom using FWW with CGA. CGA for toilet and s hower transfer using FWW and grabbars. CGA in standing with 1 LOB to manipulate clothing, cleansed self on toilet. Required encouragement to complete lower body bathing. Pt states that her does LE's for bathing. Pt able to bath LE's to feet. After set up, pt dons/doffs upper body clothing then is attempts to thread feet through pant legs, assist only to get over little toes. Pt able to pull up legs and hike over hips in standing with CGA, 1 LOB. Pt ambulated to sink and sat in chair to complete own grooming. After therapy, pt sitting at sink, nrsg notified, call light within reach. All needs met in room. Therapy Code Descriptions/Definitions Functional [place] Measure: 0=Not Assessed/NA 4=Minimal Assistance 1=Total Assistance 5=Supervision or Setup 2=Maximal Assistance 6=Modified [place] 3=Moderate Assistance 7=Complete [place] Therapy Quality Codes: 6 Independent with activity with or without an assistive device 5 Patient requires set up or clean up by helper. Patient completes activity by themselves 4 Supervision or touching assist (CGA). [place] provide cues , steadying assist 3 The helper provides less than half the effort to complete the activity 2 The helper provides more than half the effort to complete the activity 1 Dependent. The helper does all the effort to complete an activity 7 Patient refused to complete or attempt activity 9 The patient did not perform the activity before the current illness or injury 88 Not attempted due to Medical conditions or safety concerns Grooming (FIM): 6 Oral Hygiene (QC): 6 Bathing (FIM): 4 Bathing Location: L Arm, R Arm, L Upper Leg, R Upper Leg, Chest, Abdomen, Buttocks, Perineal Area Shower/Bathe Self (QC): 3 Upper Body (FIM): 5 Upper Body Dressing (QC): 5 Lower Body Dressing (FIM): 4 Lower Body Dressing (QC): 3 On/Off Footwear (QC): 3 Toileting (FIM): 4 Toileting Hygiene (QC): 4 Transfers (B, C, W/C) (FIM): 4 Toilet/Commode Transfer (FIM): 4 Toilet Transfer (QC): 4 Shower Transfer(FIM): 4 OT Short Term Goals Short Term Goals Time Frame: Sep 24, 2018 Eating(FIM): 6 Grooming(FIM): 5 Bathing(FIM): 5 Upper Body Dressing(FIM): 5 Lower Body Dressing(FIM): 5 Toileting(FIM): 5 Transfers (B,C,W/C) (FIM): 5 Toilet/Commode Transfer(FIM): 5 Tub Transfer(FIM): 5 Shower Transfer(FIM): 5 1=Demonstrate adherence to instructed precautions during ADL tasks. 2=Patient will verbalize/demonstrate understanding of assistive devices/ modifications for ADL. 3=Patient will improve strength/tolerance for activity to enable patient to perform ADL's. OT Snf Goals Automobile Radiator Mechanic Goals Time Frame: Oct 08, 2018 Eating (FIM): 6 Eating (QC): 6 Groomin Oral Hygiene (QC): 6 Bathing(FIM): 6 Bathing Location: L Arm, R Arm, L Upper Leg, R Upper Leg, L Lower Leg (including foot), R Lower Leg (including foot), Chest, Abdomen, Buttocks, Perineal Area Shower/Bathe Self (QC): 6 Upper Body Dressing(FIM): 6 Upper Body Dressing (QC): 6 Lower Body Dressing(FIM): 6 Lower Body Dressing (QC): 6 On/Off Footwear (QC): 6 Toileting(FIM): 6 Toileting Hygiene (QC): 6 Transfers (B,C,W/C) (FIM): 6 Toilet/Commode Transfer(FIM): 6 Toilet/Commode Transfer (QC): 6 Tub Transfer(FIM): 6 Shower Transfer(FIM): 6 Additional Goals: 1-Demonstrate ADL Tasks, 2-Verbalize Understanding, 3- ImproveStrength/Anjali 1=Demonstrate adherence to instructed precautions during ADL tasks. 2=Patient will verbalize/demonstrate understanding of assistive devices/modifications for ADL. 3=Patient will improve strength/tolerance for activity to enable patient to perform ADL's. OT Education/Plan Problem List/Assessment Assessment: Decreased Activ Tolerance, Decreased UE Strength, Impaired Coordination, Impaired Funct Balance, Impaired Self-Care Skills Discharge Recommendations Plan/Recommendations: Continue POC Treatment Plan/Plan of Care Patient would benefit from OT for education, treatment and training to promote independence in ADL's, mobility, safety and/or upper extremity function for ADL's. Plan of Care: ADL Retraining, Caregiver Training, Cognitive Retraining, Concurrent Therapy, Functional Mobility, Group Exercise/Act as Ind, UE Funct Exercise/Act, UE Neuromus Re-Ed/Coord, Visual/Perceptual Retrain Treatment Duration: Oct 08, 2018 Frequency: At least 5 of 7 days/Wk (IRF) Estimated Hrs Per Day: 1.5 hours per day Rehab Potential: Fair Time/GCodes Start Time: 08:30 Stop Time: 09:30 Total Time Billed (hr/min): 60 Billed Treatment Time 1 visit-ADL 2 (60 min) ANA JULIEN Sep 16, 2018 08:49
--- NOTE | 2018-09-16 08:58 | PM&R Progress Note ---
Subjective HPI/CC On Admission Date Seen by Provider: Sep 16, 2018 Time Seen by Provider: 08:45 Chief complaint: Autonomic dysfunction causing multiple and frequent falls History of present illness: This is a 72-year-old white female clinic patient of mine for the past year who has a past medical history of labile and brittle diabetes with history of DKA, hypothyroidism, TIA/CVA, CAD, severe PVD and autonomic dysfunction due to diabetes who presents to the inpatient rehab facility due to multiple ER visits due to multiple and frequent falls. She uses her walker and has been working with outpatient physical therapy at [facility] but has continued to have multiple falls most recently injuring and lacerating her left ear requiring sutures. Blood sugars have been somewhat controlled usual hemoglobin A1c is 8 but she does have labile blood pressure and blood sugar both causing difficulties with function at home. Her prior level of functioning is walking with a walker and needs help performing her ADLs by her and daughter. She does see Dr. Jacinto neurology who is been trying to work with her neuropathy placing her at more risk for falls. She is in need of fall prevention to decrease risk for further injury and strengthening and stamina building for ambulation and improve independent ADLs. Subjective/Events-last exam Had a BM this morning Blood sugar is 152 and 103 very satisfactory and does have periodic elevation but we do not overshoot to cause severe hypoglycemia due to brittle DM Using IS Cough is still persistent due to cold virus so will initiate Albuterol TID for a few days Had a little bit of confusion yesterday but Aricept overall well tolerated and really helping Reviewed therapy notes. Conferred with boilermaker assembly and erection of Systems General: Fatigue Objective Exam Vital Signs Vital Signs Date Time Temp Pulse Resp B/P (MAP) Pulse Ox O2 Delivery O2 Flow Rate FiO2 09/16/18 18:12 98.3 94 18 131/65 (87) 93 Room Air Capillary Refill : General Appearance: No Apparent Distress, WD/WN, Chronically ill, Other (frail, pale) HEENT: PERRL/EOMI, Normal ENT Inspection, Pharynx Normal, Moist Mucous Membranes Neck: Full Range of Motion, Normal Inspection, Non Tender, Supple Respiratory: Chest Non Tender, Lungs Clear, Normal Breath Sounds, No Accessory Muscle Use, No Respiratory Distress Cardiovascular: Regular Rate, Rhythm, No Edema, No Gallop, No JVD, No Murmur Gastrointestinal: Normal Bowel Sounds, No Organomegaly, No Pulsatile Mass, Non Tender, Soft Back: Normal Inspection, No CVA Tenderness, No Vertebral Tenderness Extremity: Normal Capillary Refill, Normal Inspection, Normal Range of Motion, Non Tender, No Calf Tenderness, No Pedal Edema Neurologic/Psychiatric: Alert, Oriented x3 (poor memory recall), Normal Mood/Affect, geological technical officer II-XII Norm as Tested, Abnormal Gait, Disoriented (poor recall), Motor Weakness (generalized bilateral lower legs), Sensory Deficit (lower legs to feet) Skin: Normal Color, Warm/Dry Lymphatic: No Adenopathy Results/Procedures Lab Patient resulted labs reviewed. FIM Transfers Therapy Code Descriptions/Definitions Functional [place] Measure: 0=Not Assessed/NA 4=Minimal Assistance 1=Total Assistance 5=Supervision or Setup 2=Maximal Assistance 6=Modified [place] 3=Moderate Assistance 7=Complete [place] Therapy Quality Codes: 6 Independent with activity with or without an assistive device 5 Patient requires set up or clean up by helper. Patient completes activity by themselves 4 Supervision or touching assist (CGA). [place] provide cues , steadying assist 3 The helper provides less than half the effort to complete the activity 2 The helper provides more than half the effort to complete the activity 1 Dependent. The helper does all the effort to complete an activity 7 Patient refused to complete or attempt activity 9 The patient did not perform the activity before the current illness or injury 88 Not attempted due to Medical conditions or safety concerns Transfers (B, C, W/C) (FIM): 4 Scootin Rollin Roll Left to Right (QC): 4 Supine to/from Sit: 5 Sit to/from Stand: 5 Sit to Lying (QC): 4 Sit to Stand (QC): 4 Chair/Dnv-kw-Jxqfx Xfer(QC): 4 Bed to/from Chair: 5 Car Transfer (QC): 5 Gait Training Does the Patient Walk?: Yes Gait (FIM): 4 Distance (FIM): 3=150 ft Distance: >500 x2 Walk 10 feet (QC): 4 Walk 50 ft with 2 Turns(QC): 4 Walk 150 ft (QC): 4 Walking 10ft/uneven surface-QC: 4 Gait Level of Assist: 4 Gait Persons Needed: 1 Gait Assistive Device: FWW Wheelchair Training Does the Pt Use a Wheelchair?: No Stair Training Stair Training: Handrails/: 2 handrails Stairs (FIM): 4 #of Steps: 8 1 Step (curb) (QC): 3 4 Steps (QC): 9 12 Steps (QC): 9 Stairs: Pattern: Step to Level of Assist: 4 Mental Status/Objective Comprehension: 5 Expression: 5 Social Interaction: 5 Problem Solvin Memory: 4 ADL-Treatment Feedin (set up) Eating (QC): 4 Groomin Oral Hygiene (QC): 4 Bathin (required assist with buttocks, and Adal feet ) Bathing Location: L Arm, R Arm, L Upper Leg, R Upper Leg, Chest, Abdomen, Perineal Area Shower/Bathe Self (QC): 2 Upper Extremity Dressin Upper Body Dressing (QC): 4 Lower Extremity Dressin (required assist for adal LE. demo ability pull down past hips ) Lower Body Dressing (QC): 1 On/Off Footwear (QC): 3 (Doffs over heel then requires assist to pull off foot and don over foot. Placement of shoes then pt able to slip foot into shoe.) Toiletin Toileting Hygiene (QC): 4 Toilet/Commode Transfer: 4 Toilet Transfer (QC): 4 Shower: 4 (CGA for safety/ balacne with use of RW. pt VC to ambulate indise of walker for safety. ) Assessment/Plan Assessment and Plan Assess & Plan/Chief Complaint Assessment: Autonomic dysfunction w/chronic dizziness and disequilibrium Multiple and frequent falls TIA hx CVA hx DM OOC HTN HLP Hypothyroidism NPH PIZZAMAKER shunts recently assessed to be functioning well h/o DKA Depression Memory deficit confirmed vascular dementia on SLUMS score of started on Aricept during this admit URI Plan: Home meds Accuchecks SSI Check labs IRF protocols Updated family on dementia dx Monitor BP closely Aricept 5mg to be maintained Fall prevention Albuterol Neb tx (1) Autonomic dysfunction with type 2 diabetes mellitus (2) TIA (transient ischemic attack) (3) Anxiety (4) Depression (5) DKA (diabetic ketoacidoses) (6) NPH (normal pressure hydrocephalus) (7) Hypothyroidism (8) Hypertension (9) Falls frequently (10) CVA (cerebral vascular accident) (11) Memory deficit (12) Myocardial infarct, old (13) Presbycusis of both ears (14) Diabetes mellitus, insulin dependent (IDDM), controlled (15) PIZZAMAKER (ventriculoperitoneal) shunt status VERONICA GALVEZ DO Sep 16, 2018 08:58
--- NOTE | 2018-09-16 10:29 | Physical Therapy Daily Note ---
PT Daily Note-Current Subjective Agrees to PT. Reports she feels tired today. Mental Status Patient Orientation: Person, Confused, Place, Situation Transfers Therapy Code Descriptions/Definitions Functional [place] Measure: 0=Not Assessed/NA 4=Minimal Assistance 1=Total Assistance 5=Supervision or Setup 2=Maximal Assistance 6=Modified [place] 3=Moderate Assistance 7=Complete [place] Therapy Quality Codes: 6 Independent with activity with or without an assistive device 5 Patient requires set up or clean up by helper. Patient completes activity by themselves 4 Supervision or touching assist (CGA). [place] provide cues , steadying assist 3 The helper provides less than half the effort to complete the activity 2 The helper provides more than half the effort to complete the activity 1 Dependent. The helper does all the effort to complete an activity 7 Patient refused to complete or attempt activity 9 The patient did not perform the activity before the current illness or injury 88 Not attempted due to Medical conditions or safety concerns Transfers (B, C, W/C) (FIM): 5 Sit to Lying (QC): 5 Sit to Stand (QC): 5 (skilled cues for hand placement and sequencing) SBA with toilet transfers. Weight Bearing Right Lower Extremity: Right Full Weight Bearing Left Lower Extremity: Left Full Weight Bearing Gait Training Does the Patient Walk?: Yes Gait (FIM): 4 Distance (FIM): 3=150 ft Distance: 150 ft x 5 reps Gait Assistive Device: FWW skilled cues for larger steps, posture and speed. CGA for safety. Exercises Seated Therapy Exercises: Ankle pumps, Long arc quads, Hip flexion, Hip abd/add Seated Reps: 15 NuStep Minutes: 15 Treatments Ther ex and nu step performed to increase LE strength and functional activity tolerance for improved abilituy to transfer and ambulate. Assessment Current Status: Good Progress Pt follows cues well but does need reminders. Cooperative and compliant. PT Short Term Goals Short Term Goals Transfers (B,C,W/C) (FIM): 5 (met) PT Post Acute Care Registered Nurse Goals Intermediate Goals PT Intermediate Goals Time Frame: Oct 09, 2018 Transfers (B,C,W/C) (FIM): 5 Sit to Lying (QC): 5 Lying-Sitting on Side/Bed(QC): 5 Sit to Stand (QC): 5 Rollin Roll Left to Right (QC): 5 Chair/Exw-pg-Fgami Xfer(QC): 5 Car Transfer (QC): 5 Does the Patient Walk: Yes Gait (FIM): 5 Gait distance (FIM): 3=150 ft Distance: 175' Walk 10 feet (QC): 5 Walk 10ft-Uneven Surface(QC): 5 Walk 50ft with 2 Turns (QC): 5 Walk 150 ft (QC): 5 Gait Level of Assist: 5 Gait Assistive Device: FWW Does the Pt use WC or Scooter?: No Stairs (FIM): 1 # of Steps: 1 1 Step (curb) (QC): 4 4 Steps (QC): 9 12 Steps (QC): 9 Stairs Level Of Assist: 4 Picking up an Object (QC): 4 PT Plan Problem List Problem List: Activity Tolerance, Functional Strength, Safety, Balance, Gait, Transfer, Bed Mobility Treatment/Plan Treatment Plan: Continue Plan of Care Treatment Plan: Bed Mobility, Concurrent Therapy, Education, Functional Activity Anjali, Functional Strength, Group Therapy, Gait, Safety, Therapeutic Exercise, Transfers Treatment Duration: Oct 09, 2018 Frequency: At least 5 of 7 days/Wk (IRF) Estimated Hrs Per Day: 1.5 hours per day Patient and/or Family Agrees t: Yes Safety Risks/Education Patient Education: Transfer Techniques, Safety Issues Teaching Recipient: Patient Teaching Methods: Discussion Response to Teaching: Reinforcement Needed Discharge Recommendations Therapy D/C Recommendations: Physical Therapy Home Care Time/GCodes Time In: 930 Time Out: 1030 Total Billed Treatment Time: 60 Total Billed Treatment visit EX 30 GT 30 ANA DIALLO PT Sep 16, 2018 10:29
--- NOTE | 2018-09-16 13:55 | Occupational Ther Daily Note ---
OT Current Status-Daily Note Subjective Pt alert, sitting in bathroom. Pt agrees to therapy. No c/o pain at this time. Mental Status/Objective Patient Orientation: Person, Place, Time, Situation Therapy Code Descriptions/Definitions Functional [place] Measure: 0=Not Assessed/NA 4=Minimal Assistance 1=Total Assistance 5=Supervision or Setup 2=Maximal Assistance 6=Modified [place] 3=Moderate Assistance 7=Complete [place] ADL-Treatment Therapy Code Descriptions/Definitions Functional [place] Measure: 0=Not Assessed/NA 4=Minimal Assistance 1=Total Assistance 5=Supervision or Setup 2=Maximal Assistance 6=Modified [place] 3=Moderate Assistance 7=Complete [place] Therapy Quality Codes: 6 Independent with activity with or without an assistive device 5 Patient requires set up or clean up by helper. Patient completes activity by themselves 4 Supervision or touching assist (CGA). [place] provide cues , steadying assist 3 The helper provides less than half the effort to complete the activity 2 The helper provides more than half the effort to complete the activity 1 Dependent. The helper does all the effort to complete an activity 7 Patient refused to complete or attempt activity 9 The patient did not perform the activity before the current illness or injury 88 Not attempted due to Medical conditions or safety concerns Toileting (FIM): 4 (CGA in standing to manipulate clothing. Cleanses self sitting on toilet.) Toileting Hygiene (QC): 4 Toilet/Commode Transfer (FIM): 4 (CGA using FWW and grabbars.) Toilet Transfer (QC): 4 Other Treatment Completed dowel arturo exercises for UE to increase strength and AROM, 20 reps minimal wt. After therapy, pt sitting in therapy gym in the care of PT. OT Short Term Goals Short Term Goals Time Frame: Sep 24, 2018 Eating(FIM): 6 Grooming(FIM): 5 Bathing(FIM): 5 Upper Body Dressing(FIM): 5 Lower Body Dressing(FIM): 5 Toileting(FIM): 5 Transfers (B,C,W/C) (FIM): 5 (met) Toilet/Commode Transfer(FIM): 5 Tub Transfer(FIM): 5 Shower Transfer(FIM): 5 1=Demonstrate adherence to instructed precautions during ADL tasks. 2=Patient will verbalize/demonstrate understanding of assistive devices/modifications for ADL. 3=Patient will improve strength/tolerance for activity to enable patient to perform ADL's. OT Litigation Assistant Goals Half-Way Goals Time Frame: Oct 08, 2018 Eating (FIM): 6 Eating (QC): 6 Groomin Oral Hygiene (QC): 6 Bathing(FIM): 6 Bathing Location: L Arm, R Arm, L Upper Leg, R Upper Leg, L Lower Leg (including foot), R Lower Leg (including foot), Chest, Abdomen, Buttocks, Perineal Area Shower/Bathe Self (QC): 6 Upper Body Dressing(FIM): 6 Upper Body Dressing (QC): 6 Lower Body Dressing(FIM): 6 Lower Body Dressing (QC): 6 On/Off Footwear (QC): 6 Toileting(FIM): 6 Toileting Hygiene (QC): 6 Transfers (B,C,W/C) (FIM): 6 Toilet/Commode Transfer(FIM): 6 Toilet/Commode Transfer (QC): 6 Tub Transfer(FIM): 6 Shower Transfer(FIM): 6 Additional Goals: 1-Demonstrate ADL Tasks, 2-Verbalize Understanding, 3- ImproveStrength/Anjali 1=Demonstrate adherence to instructed precautions during ADL tasks. 2=Patient will verbalize/demonstrate understanding of assistive devices/modifications for ADL. 3=Patient will improve strength/tolerance for activity to enable patient to perform ADL's. OT Education/Plan Problem List/Assessment Assessment: Decreased Activ Tolerance, Decreased UE Strength Discharge Recommendations Plan/Recommendations: Continue POC Treatment Plan/Plan of Care Patient would benefit from OT for education, treatment and training to promote independence in ADL's, mobility, safety and/or upper extremity function for ADL's. Plan of Care: ADL Retraining, Caregiver Training, Cognitive Retraining, Concurrent Therapy, Functional Mobility, Group Exercise/Act as Ind, UE Funct Exercise/Act, UE Neuromus Re-Ed/Coord, Visual/Perceptual Retrain Treatment Duration: Oct 08, 2018 Frequency: At least 5 of 7 days/Wk (IRF) Estimated Hrs Per Day: 1.5 hours per day Rehab Potential: Fair Time/GCodes Start Time: 12:30 Stop Time: 12:45 Total Time Billed (hr/min): 15 Billed Treatment Time 1 visit-EX 1 (15 min) ANA JULIEN Sep 16, 2018 13:55
--- NOTE | 2018-09-16 14:05 | Physical Therapy Daily Note ---
PT Daily Note-Current Subjective Agreeable to PT. Transfers Therapy Code Descriptions/Definitions Functional [place] Measure: 0=Not Assessed/NA 4=Minimal Assistance 1=Total Assistance 5=Supervision or Setup 2=Maximal Assistance 6=Modified [place] 3=Moderate Assistance 7=Complete [place] Therapy Quality Codes: 6 Independent with activity with or without an assistive device 5 Patient requires set up or clean up by helper. Patient completes activity by themselves 4 Supervision or touching assist (CGA). [place] provide cues , steadying assist 3 The helper provides less than half the effort to complete the activity 2 The helper provides more than half the effort to complete the activity 1 Dependent. The helper does all the effort to complete an activity 7 Patient refused to complete or attempt activity 9 The patient did not perform the activity before the current illness or injury 88 Not attempted due to Medical conditions or safety concerns Weight Bearing Right Lower Extremity: Right Full Weight Bearing Left Lower Extremity: Left Full Weight Bearing Treatments Pt performed gait training with FWW with skille dcues for posture and step length; pt walked 150 ft x 2 with SB - CGA. Pt walked up/down 4 steps x 2 with CGA with skilled cues for sequencing and safety. Pt in room in chair with chair alarm activated post treatment. Assessment Current Status: Good Progress Progressing. Pt lacks some safety awareness but follows cues and is cooperative. PT Short Term Goals Short Term Goals Transfers (B,C,W/C) (FIM): 5 (met) PT Delivery Driver/Supervisor Goals Fpc Goals PT Fpc Goals Time Frame: Oct 09, 2018 Transfers (B,C,W/C) (FIM): 5 Sit to Lying (QC): 5 Lying-Sitting on Side/Bed(QC): 5 Sit to Stand (QC): 5 Rollin Roll Left to Right (QC): 5 Chair/Oif-hq-Gqjnd Xfer(QC): 5 Car Transfer (QC): 5 Does the Patient Walk: Yes Gait (FIM): 5 Gait distance (FIM): 3=150 ft Distance: 175' Walk 10 feet (QC): 5 Walk 10ft-Uneven Surface(QC): 5 Walk 50ft with 2 Turns (QC): 5 Walk 150 ft (QC): 5 Gait Level of Assist: 5 Gait Assistive Device: FWW Does the Pt use WC or Scooter?: No Stairs (FIM): 1 # of Steps: 1 1 Step (curb) (QC): 4 4 Steps (QC): 9 12 Steps (QC): 9 Stairs Level Of Assist: 4 Picking up an Object (QC): 4 PT Plan Problem List Problem List: Activity Tolerance, Functional Strength, Safety, Balance, Gait, Transfer, Bed Mobility Treatment/Plan Treatment Plan: Continue Plan of Care Treatment Plan: Bed Mobility, Concurrent Therapy, Education, Functional Activity Anjali, Functional Strength, Group Therapy, Gait, Safety, Therapeutic Exercise, Transfers Treatment Duration: Oct 09, 2018 Frequency: At least 5 of 7 days/Wk (IRF) Estimated Hrs Per Day: 1.5 hours per day Patient and/or Family Agrees t: Yes Safety Risks/Education Patient Education: Safety Issues Teaching Recipient: Patient Teaching Methods: Discussion Response to Teaching: Reinforcement Needed Discharge Recommendations Therapy D/C Recommendations: Physical Therapy Home Care Time/GCodes Time In: 1250 Time Out: 1305 Total Billed Treatment Time: 15 Total Billed Treatment visit GT 15 ANA DIALLO PT Sep 16, 2018 14:05
--- NOTE | 2018-09-16 15:40 | Speech Therapy Daily Note ---
Speech Daily Progress Note Subjective Date Seen by Provider: Sep 16, 2018 Time Seen by Provider: 00:30 The patient was resting in her recliner when I arrived. Objective The patient completed problem solving tasks related to her daily needs at 75% with moderate verbal cues. Assessment Assessment Current Status: Fair Progress Treatment Plan Continue Plan of Care Communication Comprehension: 5 Expression: 5 Social Cognition Social Interaction: 5 Problem Solvin Memory: 4 Speech Short Term Goals Short Term Goals Short Term Goals 1) The patient will complete memory exercises related to her daily needs with 90% accuracy given minimal verbal cues. 2) The patient will complete problem solving exercises related to her daily needs with 90% accuracy given minimal verbal cues. 3) The patient will complete simple 1-3 step directions related to her daily needs with 90% accuracy given minimal verbal cues. Speech Furniture Upholsterer Goals Fpc Goals The patient will complete cognitive function exercises in order to return home safely. Speech-Plan Patient/Family Goals Patient/Family Goals: The patient plans on returning home with her post rehab. Treatment Plan Speech Therapy Treatment Plan: Continue Plan of Care The patient requires frequent repetitions of daily routine needs due to decreased retention of information. Treatment Duration: Sep 24, 2018 Frequency: 5 times per week Estimated Hrs Per Day: .5 hour per day Rehab Potential: Fair Barriers to Learning: Patient has significant cognitive deficits regarding memory and retention of information. Pt/Family Agrees to Plan: Yes Safety Risks/Education Teaching Recipient: Patient Teaching Methods: Demonstration, Discussion Response to Teaching: Verbalize Understanding, Return Demonstration Education Topics Provided: Continued safety within her room. Time Speech Therapy Time In: 15:00 Speech Therapy Time Out: 15:30 Total Billed Time: 30 Billed Treatment Time [address] Sep 16, 2018 15:40
[2018-09-16] MEDS: RT-ALBUTEROL SULF 2.5 MG/3 ML PRE-MIX VIAL INH SCH ×2 (15:59→21:10)
[2018-09-16 18:12] VITALS: BP 131/65
[2018-09-16] MEDS: MELATONIN 3 MG TABLET PO PRN (21:02)
[2018-09-16] MEDS: DONEPEZIL 5 MG (ARICEPT) TAB PO SCH (21:02)
[2018-09-16] MEDS: GABAPENTIN 100 MG (NEURONTIN) CAP PO SCH (21:03)
[2018-09-17 05:53] VITALS: BP 146/72
[2018-09-17] MEDS: RT-ALBUTEROL SULF 2.5 MG/3 ML PRE-MIX VIAL INH SCH ×3 (06:34→19:58)
[2018-09-17] MEDS: MULTIVIT W/MINERALS TAB (THERAGRAN M) PO SCH (06:54)
[2018-09-17] MEDS: LEVOTHYROXINE 112 MCG (LEVOTHROID) TAB PO SCH (06:54)
[2018-09-17] MEDS: inSUlin ASPART (NovoLOG) 1 UNIT/0.01 ML (CHARGE PER UNIT) SC SCH ×4 (06:55→21:26)
--- NOTE | 2018-09-17 09:00 | Physical Therapy Daily Note ---
PT Daily Note-Current Subjective Patient in bed pre tx, agrees to PT, has no complaints of pain. Appearance Patient in bed post tx with nurse call,phone, tray, all needs met. Mental Status Patient Orientation: Person, Confused, Place Transfers Therapy Code Descriptions/Definitions Functional [place] Measure: 0=Not Assessed/NA 4=Minimal Assistance 1=Total Assistance 5=Supervision or Setup 2=Maximal Assistance 6=Modified [place] 3=Moderate Assistance 7=Complete [place] Therapy Quality Codes: 6 Independent with activity with or without an assistive device 5 Patient requires set up or clean up by helper. Patient completes activity by themselves 4 Supervision or touching assist (CGA). [place] provide cues , steadying assist 3 The helper provides less than half the effort to complete the activity 2 The helper provides more than half the effort to complete the activity 1 Dependent. The helper does all the effort to complete an activity 7 Patient refused to complete or attempt activity 9 The patient did not perform the activity before the current illness or injury 88 Not attempted due to Medical conditions or safety concerns Transfers (B, C, W/C) (FIM): 5 Scootin Rollin Supine to/from Sit: 5 Sit to/from Stand: 5 Bed to/from Chair: 5 occasional cues for safety and positioning Weight Bearing Right Lower Extremity: Right Full Weight Bearing Left Lower Extremity: Left Full Weight Bearing Gait Training Gait (FIM): 4 Distance: 150'x2 Gait Level of Assist: 4 Gait Persons Needed: 1 Gait Assistive Device: FWW Patient ambulates slowly, poor heel strike on the left side, short steps with not much step-through, CGA when turning but otherwise is SBA Exercises Standing: Hip Abduction, Heel/toe raises, Marching, Mini squats, Step-ups (x10 each side) Standing Reps: 15 LAQ alternating for 5 min NuStep Minutes: 15 NuStep Workload: 5 Treatments LE exercise, endurance training, bed mobility and transfers, ambulation Assessment Current Status: Fair Progress improving endurance PT Short Term Goals Short Term Goals Transfers (B,C,W/C) (FIM): 5 (met) PT [facility] Goals [facility] Goals PT Shelter Goals Time Frame: Oct 09, 2018 Transfers (B,C,W/C) (FIM): 5 Sit to Lying (QC): 5 Lying-Sitting on Side/Bed(QC): 5 Sit to Stand (QC): 5 Rollin Roll Left to Right (QC): 5 Chair/Imk-sv-Wddji Xfer(QC): 5 Car Transfer (QC): 5 Does the Patient Walk: Yes Gait (FIM): 5 Gait distance (FIM): 3=150 ft Distance: 175' Walk 10 feet (QC): 5 Walk 10ft-Uneven Surface(QC): 5 Walk 50ft with 2 Turns (QC): 5 Walk 150 ft (QC): 5 Gait Level of Assist: 5 Gait Assistive Device: FWW Does the Pt use WC or Scooter?: No Stairs (FIM): 1 # of Steps: 1 1 Step (curb) (QC): 4 4 Steps (QC): 9 12 Steps (QC): 9 Stairs Level Of Assist: 4 Picking up an Object (QC): 4 PT Plan Problem List Problem List: Activity Tolerance, Functional Strength, Safety, Balance, Gait, Transfer, Bed Mobility Treatment/Plan Treatment Plan: Continue Plan of Care Treatment Plan: Bed Mobility, Concurrent Therapy, Education, Functional Activity Anjali, Functional Strength, Group Therapy, Gait, Safety, Therapeutic Exercise, Transfers Treatment Duration: Oct 09, 2018 Frequency: At least 5 of 7 days/Wk (IRF) Estimated Hrs Per Day: 1.5 hours per day Patient and/or Family Agrees t: Yes Safety Risks/Education Patient Education: Gait Training, Transfer Techniques, Correct Positioning, Safety Issues Teaching Recipient: Patient Teaching Methods: Demonstration, Discussion Response to Teaching: Reinforcement Needed Time/GCodes Time In: 0800 Time Out: 0900 Total Billed Treatment Time: 60 Total Billed Treatment 1 visit GT 20' EX 30' FA 10' ALMA BERGERON PT Sep 17, 2018 09:00
[2018-09-17] MEDS: SERTRALINE 50 MG (ZOLOFT) TABLET PO SCH (10:02)
[2018-09-17] MEDS: CLOPIDOGREL 75 MG (PLAVIX) TABLET PO SCH (10:02)
[2018-09-17] MEDS: SENNA W/DOCUSATE (SENOKOT S) TABLET PO SCH ×2 (10:02→21:00)
[2018-09-17] MEDS: FUROSEMIDE 40 MG (LASIX) TAB PO SCH (10:02)
[2018-09-17] MEDS: ATORVASTATIN 40 MG (LIPITOR) TABLET PO SCH (10:02)
[2018-09-17] MEDS: LOSARTAN 25 MG (COZAAR) TAB PO SCH (10:02)
[2018-09-17] MEDS: ASPIRIN E.C. 81 MG (ECOTRIN) TAB PO SCH (10:03)
--- NOTE | 2018-09-17 11:18 | PM&R Progress Note ---
Subjective HPI/CC On Admission Date Seen by Provider: Sep 17, 2018 Time Seen by Provider: 09:30 Chief complaint: Autonomic dysfunction causing multiple and frequent falls History of present illness: This is a 72-year-old white female clinic patient of mine for the past year who has a past medical history of labile and brittle diabetes with history of DKA, hypothyroidism, TIA/CVA, CAD, severe PVD and autonomic dysfunction due to diabetes who presents to the inpatient rehab facility due to multiple ER visits due to multiple and frequent falls. She uses her walker and has been working with outpatient physical therapy at [facility] but has continued to have multiple falls most recently injuring and lacerating her left ear requiring sutures. Blood sugars have been somewhat controlled usual hemoglobin A1c is 8 but she does have labile blood pressure and blood sugar both causing difficulties with function at home. Her prior level of functioning is walking with a walker and needs help performing her ADLs by her and daughter. She does see Dr. Jacinto neurology who is been trying to work with her neuropathy placing her at more risk for falls. She is in need of fall prevention to decrease risk for further injury and strengthening and stamina building for ambulation and improve independent ADLs. Subjective/Events-last exam Had a BM this morning Blood sugar is varied but very satisfactory and does have periodic elevation but we do not overshoot to cause severe hypoglycemia due to brittle DM Using IS Cough is improved from cold virus so will maintain Albuterol TID for a few more days Aricept overall well tolerated and really helping Melatonin really helping her sleep better Reviewed therapy notes. Conferred with superintendent of schools of Systems General: Fatigue Objective Exam Vital Signs Vital Signs Date Time Temp Pulse Resp B/P (MAP) Pulse Ox O2 Delivery O2 Flow Rate FiO2 09/17/18 06:34 90 Room Air 09/17/18 05:53 97.3 96 20 146/72 (96) Capillary Refill : General Appearance: No Apparent Distress, WD/WN, Chronically ill, Other (frail, pale) HEENT: PERRL/EOMI, Normal ENT Inspection, Pharynx Normal, Moist Mucous Membranes Neck: Full Range of Motion, Normal Inspection, Non Tender, Supple Respiratory: Chest Non Tender, Lungs Clear, Normal Breath Sounds, No Accessory Muscle Use, No Respiratory Distress Cardiovascular: Regular Rate, Rhythm, No Edema, No Gallop, No JVD, No Murmur Gastrointestinal: Normal Bowel Sounds, No Organomegaly, No Pulsatile Mass, Non Tender, Soft Back: Normal Inspection, No CVA Tenderness, No Vertebral Tenderness Extremity: Normal Capillary Refill, Normal Inspection, Normal Range of Motion, Non Tender, No Calf Tenderness, No Pedal Edema Neurologic/Psychiatric: Alert, Oriented x3 (poor memory recall), Normal Mood/Affect, structured cabling technician II-XII Norm as Tested, Abnormal Gait, Disoriented (poor recall), Motor Weakness (generalized bilateral lower legs), Sensory Deficit (lower legs to feet) Skin: Normal Color, Warm/Dry Lymphatic: No Adenopathy Results/Procedures Lab Patient resulted labs reviewed. FIM Transfers Therapy Code Descriptions/Definitions Functional [place] Measure: 0=Not Assessed/NA 4=Minimal Assistance 1=Total Assistance 5=Supervision or Setup 2=Maximal Assistance 6=Modified [place] 3=Moderate Assistance 7=Complete [place] Therapy Quality Codes: 6 Independent with activity with or without an assistive device 5 Patient requires set up or clean up by helper. Patient completes activity by themselves 4 Supervision or touching assist (CGA). [place] provide cues , steadying assist 3 The helper provides less than half the effort to complete the activity 2 The helper provides more than half the effort to complete the activity 1 Dependent. The helper does all the effort to complete an activity 7 Patient refused to complete or attempt activity 9 The patient did not perform the activity before the current illness or injury 88 Not attempted due to Medical conditions or safety concerns Transfers (B, C, W/C) (FIM): 5 Scootin Rollin Roll Left to Right (QC): 4 Supine to/from Sit: 5 Sit to/from Stand: 5 Sit to Lying (QC): 5 Sit to Stand (QC): 5 (skilled cues for hand placement and sequencing) Chair/Obb-ij-Cglty Xfer(QC): 4 Bed to/from Chair: 5 Car Transfer (QC): 5 Gait Training Does the Patient Walk?: Yes Gait (FIM): 4 Distance (FIM): 3=150 ft Distance: 150'x2 Walk 10 feet (QC): 4 Walk 50 ft with 2 Turns(QC): 4 Walk 150 ft (QC): 4 Walking 10ft/uneven surface-QC: 4 Gait Level of Assist: 4 Gait Persons Needed: 1 Gait Assistive Device: FWW Wheelchair Training Does the Pt Use a Wheelchair?: No Stair Training Stair Training: Handrails/: 2 handrails Stairs (FIM): 4 #of Steps: 8 1 Step (curb) (QC): 3 4 Steps (QC): 9 12 Steps (QC): 9 Stairs: Pattern: Step to Level of Assist: 4 Mental Status/Objective Comprehension: 5 Expression: 5 Social Interaction: 5 Problem Solvin Memory: 4 ADL-Treatment Feedin (set up) Eating (QC): 4 Groomin Oral Hygiene (QC): 6 Bathin Bathing Location: L Arm, R Arm, L Upper Leg, R Upper Leg, Chest, Abdomen, Buttocks, Perineal Area Shower/Bathe Self (QC): 3 Upper Extremity Dressin Upper Body Dressing (QC): 5 Lower Extremity Dressin Lower Body Dressing (QC): 3 On/Off Footwear (QC): 3 Toiletin (CGA in standing to manipulate clothing. Cleanses self sitting on toilet.) Toileting Hygiene (QC): 4 Toilet/Commode Transfer: 4 (CGA using FWW and grabbars.) Toilet Transfer (QC): 4 Shower: 4 Assessment/Plan Assessment and Plan Assess & Plan/Chief Complaint Assessment: Autonomic dysfunction w/chronic dizziness and disequilibrium Multiple and frequent falls TIA hx CVA hx DM OOC HTN HLP Hypothyroidism NPH SOLUTION SPECIALIST shunts recently assessed to be functioning well h/o DKA Depression Memory deficit confirmed vascular dementia on SLUMS score of started on Aricept during this admit URI-improved on Nebs Insomnia maintained on Melatonin Plan: Home meds Accuchecks SSI Check labs IRF protocols Updated family on dementia dx Monitor BP closely Aricept 5mg to be maintained Fall prevention Albuterol Neb tx to continue (1) Autonomic dysfunction with type 2 diabetes mellitus (2) TIA (transient ischemic attack) (3) Anxiety (4) Depression (5) DKA (diabetic ketoacidoses) (6) NPH (normal pressure hydrocephalus) (7) Hypothyroidism (8) Hypertension (9) Falls frequently (10) CVA (cerebral vascular accident) (11) Memory deficit (12) Myocardial infarct, old (13) Presbycusis of both ears (14) Diabetes mellitus, insulin dependent (IDDM), controlled (15) SOLUTION SPECIALIST (ventriculoperitoneal) shunt status VERONICA GALVEZ DO Sep 17, 2018 11:18
--- NOTE | 2018-09-17 13:01 | Occupational Ther Daily Note ---
OT Current Status-Daily Note Subjective Pt in bed, agrees to treatment. Pt has no c/o pain. Mental Status/Objective Therapy Code Descriptions/Definitions Functional [place] Measure: 0=Not Assessed/NA 4=Minimal Assistance 1=Total Assistance 5=Supervision or Setup 2=Maximal Assistance 6=Modified [place] 3=Moderate Assistance 7=Complete [place] ADL-Treatment Supine to sit with SBA. Pt declined bathing today, states she had a shower yesterday. Sit to stand with SBA. Gait to restroom with FWW. Transfer to toilet with SBA using grab bar. Pt able to complete toileting hygiene with increased time. Pt doffed Depends and pants with SBA and increased time. Pt able to thread right LE into Depends and pants, but requires assist with left LE. Stood with supervision for balance during pant hike. Stood at sink to wash hands and complete grooming tasks. Pt brushed teeth and combed hair with SBA for standing balance. Seated rest break taken after grooming secondary to fatigue. Pt changed shirt with SBA. Therapy Code Descriptions/Definitions Functional [place] Measure: 0=Not Assessed/NA 4=Minimal Assistance 1=Total Assistance 5=Supervision or Setup 2=Maximal Assistance 6=Modified [place] 3=Moderate Assistance 7=Complete [place] Therapy Quality Codes: 6 Independent with activity with or without an assistive device 5 Patient requires set up or clean up by helper. Patient completes activity by themselves 4 Supervision or touching assist (CGA). [place] provide cues , steadying jaylen t 3 The helper provides less than half the effort to complete the activity 2 The helper provides more than half the effort to complete the activity 1 Dependent. The helper does all the effort to complete an activity 7 Patient refused to complete or attempt activity 9 The patient did not perform the activity before the current illness or injury 88 Not attempted due to Medical conditions or safety concerns Grooming (FIM): 5 Oral Hygiene (QC): 4 Upper Body (FIM): 5 Upper Body Dressing (QC): 4 Lower Body Dressing (FIM): 4 Lower Body Dressing (QC): 3 Toilet/Commode Transfer (FIM): 4 Toilet Transfer (QC): 3 Other Treatment Gait to therapy gym with FWW, slow pace and cues for safety. Arm bike [id number] to increase overall strength and activity tolerance needed for functional task completion. Pt completed activity with minimal resistance and slow pace. No rest breaks needed. Graded clothespin activity completed with bilateral hands to increase 3rd grade reading teacher/pinch strength for ADLs. Pt returned to room, completed sit to supine with SBA. Pt resting in bed with needs met after session. OT Short Term Goals Short Term Goals Time Frame: Sep 24, 2018 Eating(FIM): 6 Grooming(FIM): 5 Bathing(FIM): 5 Upper Body Dressing(FIM): 5 Lower Body Dressing(FIM): 5 Toileting(FIM): 5 Transfers (B,C,W/C) (FIM): 5 (met) Toilet/Commode Transfer(FIM): 5 Tub Transfer(FIM): 5 Shower Transfer(FIM): 5 1=Demonstrate adherence to instructed precautions during ADL tasks. 2=Patient will verbalize/demonstrate understanding of assistive devices/modifications for ADL. 3=Patient will improve strength/tolerance for activity to enable patient to perform ADL's. OT Multimedia Production Assistant Goals Multimedia Production Assistant Goals Time Frame: Oct 08, 2018 Eating (FIM): 6 Eating (QC): 6 Groomin Oral Hygiene (QC): 6 Bathing(FIM): 6 Bathing Location: L Arm, R Arm, L Upper Leg, R Upper Leg, L Lower Leg (including foot), R Lower Leg (including foot), Chest, Abdomen, Buttocks, Perineal Area Shower/Bathe Self (QC): 6 Upper Body Dressing(FIM): 6 Upper Body Dressing (QC): 6 Lower Body Dressing(FIM): 6 Lower Body Dressing (QC): 6 On/Off Footwear (QC): 6 Toileting(FIM): 6 Toileting Hygiene (QC): 6 Transfers (B,C,W/C) (FIM): 6 Toilet/Commode Transfer(FIM): 6 Toilet/Commode Transfer (QC): 6 Tub Transfer(FIM): 6 Shower Transfer(FIM): 6 Additional Goals: 1-Demonstrate ADL Tasks, 2-Verbalize Understanding, 3-ImproveStrength/Anjali 1=Demonstrate adherence to instructed precautions during ADL tasks. 2=Patient will verbalize/demonstrate understanding of assistive devices/modifications for ADL. 3=Patient will improve strength/tolerance for activity to enable patient to perform ADL's. OT Education/Plan Discharge Recommendations Plan/Recommendations: Continue POC Treatment Plan/Plan of Care Patient would benefit from OT for education, treatment and training to promote independence in ADL's, mobility, safety and/or upper extremity function for ADL's. Plan of Care: ADL Retraining, Caregiver Training, Cognitive Retraining, Concurrent Therapy, Functional Mobility, Group Exercise/Act as Ind, UE Funct Exercise/Act, UE Neuromus Re-Ed/Coord, Visual/Perceptual Retrain Treatment Duration: Oct 08, 2018 Frequency: At least 5 of 7 days/Wk (IRF) Estimated Hrs Per Day: 1.5 hours per day Rehab Potential: Fair Time/GCodes Start Time: 09:00 Stop Time: 10:00 Total Time Billed (hr/min): 60 Billed Treatment Time 1 visit, ADLx3(40minutes), EX(20minutes) DILLAN JOYCE OT Sep 17, 2018 13:01
--- NOTE | 2018-09-17 14:49 | Speech Therapy Daily Note ---
Speech Daily Progress Note Subjective Date Seen by Provider: Sep 17, 2018 Time Seen by Provider: 00:30 The patient was eating her lunch when I entered her room. Objective The patient completed memory tasks with 75% accuracy given moderate verbal cues and/or repetitions. Assessment Assessment Current Status: Good Progress Treatment Plan Continue Plan of Care Communication Comprehension: 5 Expression: 5 Social Cognition Social Interaction: 5 Problem Solvin Memory: 4 Speech Short Term Goals Short Term Goals Short Term Goals 1) The patient will complete memory exercises related to her daily needs with 90% accuracy given minimal verbal cues. 2) The patient will complete problem solving exercises related to her daily needs with 90% accuracy given minimal verbal cues. 3) The patient will complete simple 1-3 step directions related to her daily needs with 90% accuracy given minimal verbal cues. 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 Speech-Plan Patient/Family Goals Patient/Family Goals: The patient plans on returning home with her post rehab. Treatment Plan Speech Therapy Treatment Plan: Continue Plan of Care The patient is making mild progress with ST services. Treatment Duration: Sep 24, 2018 Frequency: 5 times per week Estimated Hrs Per Day: .5 hour per day Rehab Potential: Fair Barriers to Learning: Memory deficit Pt/Family Agrees to Plan: Yes Safety Risks/Education Teaching Recipient: Patient Teaching Methods: Discussion Response to Teaching: Verbalize Understanding Education Topics Provided: Safety within her room Time Speech Therapy Time In: 12:30 Speech Therapy Time Out: 13:00 Total Billed Time: 30 Billed Treatment Time [address] Sep 17, 2018 14:49
--- NOTE | 2018-09-17 15:02 | Therapy Group Daily Note ---
Therapy Daily Group Note Patient Education Topic Other List Below (transfers, ARU description/expectations) Session Ratio (pt:therapist): 4:1 Goal of Session: Education on ARU Expectations, Safety with Transfers Goal Met for this Session: Yes Pt Benefit of Group: Contributions to Others, F/U Use of Strategies @Home, Increased Functional Safety, Improved Cognition, Recognition of Peers, Socialization Other/Notes Pt ambulated using FWW with CGA to ARU commons area for OT/PT group. Group consisted of introductions (name, place living, memorable moment), socialization, ARU description/expectation, bed transfers and FWW safety. Pt introduced self appropriately and actively listened to peers. Pt acknowledged understanding of educational topics by gestures and verbalizations. After therapy, pt lying in bed with call light/phone in reach. All needs met in room. Start Time: 13:00 Stop Time: 14:10 Total Billed Treatment Time: 70 Total Billed Treatment 1-GRP ANA JULIEN Sep 17, 2018 15:02
[2018-09-17 17:35] VITALS: BP 132/66
--- NOTE | 2018-09-17 19:10 | NUR ---
bedside report received from CHANDLER MURPHY, assume care of pt
--- NOTE | 2018-09-17 21:00 | NUR ---
assessments & interventions completed, see assessments & interventions, fsbs 341, NovoLog 8 units & Levemir 7 units given, pt refused Senokot tab, will recheck fsbs later during the night
[2018-09-17] MEDS: DONEPEZIL 5 MG (ARICEPT) TAB PO SCH (21:25)
[2018-09-17] MEDS: MELATONIN 3 MG TABLET PO PRN (21:25)
[2018-09-17] MEDS: GABAPENTIN 100 MG (NEURONTIN) CAP PO SCH (21:26)
[2018-09-18 05:45] VITALS: BP 109/67
[2018-09-18] MEDS: inSUlin ASPART (NovoLOG) 1 UNIT/0.01 ML (CHARGE PER UNIT) SC SCH ×4 (06:00→21:26)
[2018-09-18] MEDS: MULTIVIT W/MINERALS TAB (THERAGRAN M) PO SCH (06:48)
[2018-09-18] MEDS: LEVOTHYROXINE 112 MCG (LEVOTHROID) TAB PO SCH (06:48)
--- NOTE | 2018-09-18 07:06 | NUR ---
bedside report given to CHANDLER MURPHY
[2018-09-18] MEDS: RT-ALBUTEROL SULF 2.5 MG/3 ML PRE-MIX VIAL INH SCH ×3 (09:58→19:00)
--- NOTE | 2018-09-18 10:02 | PM&R Progress Note ---
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 She uses her walker and has been working with outpatient physical therapy at [facility] but has continued to have multiple falls most recently injuring and lacerating her left ear requiring sutures. Blood sugars have been somewhat controlled usual hemoglobin A1c is 8 but she does have labile blood pressure and blood sugar both causing difficulties with function at home. Her prior level of functioning is walking with a walker and needs help performing her ADLs by her and daughter. She does see Dr. Jacinto neurology who is been trying to work with her neuropathy placing her at more risk for falls. She is in need of fall prevention to decrease risk for further injury and strengthening and stamina building for ambulation and improve independent ADLs. Subjective/Events-last exam Had a BM this morning and now very regular Blood sugar is varied but very satisfactory and does have periodic elevation but we do not overshoot to cause severe hypoglycemia due to brittle DM Using IS and cough is improved Cough is improved from cold virus so will maintain Albuterol TID for a few more days Aricept overall well tolerated and really helping Melatonin really helping her sleep better Having dry eyes so srops will be placed Reviewed therapy notes. Conferred with manager new product of Systems General: Fatigue Neurological: Confusion Objective Exam Vital Signs Vital Signs Date Time Temp Pulse Resp B/P (MAP) Pulse Ox O2 Delivery O2 Flow Rate FiO2 09/18/18 16:00 96.6 88 12 104/68 (80) 92 Room Air Capillary Refill : General Appearance: No Apparent Distress, WD/WN, Chronically ill, Other (frail, pale) HEENT: PERRL/EOMI, Normal ENT Inspection, Pharynx Normal, Moist Mucous Membranes Neck: Full Range of Motion, Normal Inspection, Non Tender, Supple Respiratory: Chest Non Tender, Lungs Clear, Normal Breath Sounds, No Accessory Muscle Use, No Respiratory Distress Cardiovascular: Regular Rate, Rhythm, No Edema, No Gallop, No JVD, No Murmur Gastrointestinal: Normal Bowel Sounds, No Organomegaly, No Pulsatile Mass, Non Tender, Soft Back: Normal Inspection, No CVA Tenderness, No Vertebral Tenderness Extremity: Normal Capillary Refill, Normal Inspection, Normal Range of Motion, Non Tender, No Calf Tenderness, No Pedal Edema Neurologic/Psychiatric: Alert, Oriented x3 (poor memory recall), Normal Mood/Affect, attendant honor bar II-XII Norm as Tested, Abnormal Gait, Disoriented (poor recall), Motor Weakness (generalized bilateral lower legs), Sensory Deficit (lower legs to feet) Skin: Normal Color, Warm/Dry Lymphatic: No Adenopathy Results/Procedures Lab Patient resulted labs reviewed. FIM Transfers Therapy Code Descriptions/Definitions Functional [place] Measure: 0=Not Assessed/NA 4=Minimal Assistance 1=Total Assistance 5=Supervision or Setup 2=Maximal Assistance 6=Modified [place] 3=Moderate Assistance 7=Complete [place] Therapy Quality Codes: 6 Independent with activity with or without an assistive device 5 Patient requires set up or clean up by helper. Patient completes activity by themselves 4 Supervision or touching assist (CGA). [place] provide cues , steadying assist 3 The helper provides less than half the effort to complete the activity 2 The helper provides more than half the effort to complete the activity 1 Dependent. The helper does all the effort to complete an activity 7 Patient refused to complete or attempt activity 9 The patient did not perform the activity before the current illness or injury 88 Not attempted due to Medical conditions or safety concerns Transfers (B, C, W/C) (FIM): 5 Scootin Rollin Roll Left to Right (QC): 4 Supine to/from Sit: 5 Sit to/from Stand: 5 Sit to Lying (QC): 5 Sit to Stand (QC): 5 (skilled cues for hand placement and sequencing) Chair/[id number] Xfer(QC): 4 Bed to/from Chair: 5 Car Transfer (QC): 5 Gait Training Does the Patient Walk?: Yes Gait (FIM): 4 Distance (FIM): 3=150 ft Distance: 150'x2 Walk 10 feet (QC): 4 Walk 50 ft with 2 Turns(QC): 4 Walk 150 ft (QC): 4 Walking 10ft/uneven surface-QC: 4 Gait Level of Assist: 4 Gait Persons Needed: 1 Gait Assistive Device: FWW Wheelchair Training Does the Pt Use a Wheelchair?: No Stair Training Stair Training: Handrails/: 2 handrails Stairs (FIM): 4 #of Steps: 8 1 Step (curb) (QC): 3 4 Steps (QC): 9 12 Steps (QC): 9 Stairs: Pattern: Step to Level of Assist: 4 Mental Status/Objective Comprehension: 5 Expression: 5 Social Interaction: 5 Problem Solvin Memory: 4 ADL-Treatment Feedin (set up) Eating (QC): 4 Groomin Oral Hygiene (QC): 4 Bathin Bathing Location: L Arm, R Arm, L Upper Leg, R Upper Leg, Chest, Abdomen, Buttocks, Perineal Area Shower/Bathe Self (QC): 3 Upper Extremity Dressin Upper Body Dressing (QC): 4 Lower Extremity Dressin Lower Body Dressing (QC): 3 On/Off Footwear (QC): 3 Toiletin (CGA in standing to manipulate clothing. Cleanses self sitting on toilet.) Toileting Hygiene (QC): 4 Toilet/Commode Transfer: 4 Toilet Transfer (QC): 3 Shower: 4 Assessment/Plan Assessment and Plan Assess & Plan/Chief Complaint Assessment: Autonomic dysfunction w/chronic dizziness and disequilibrium Multiple and frequent falls TIA hx CVA hx DM OOC HTN HLP Hypothyroidism NPH TEACHERS ASSISTANT shunts recently assessed to be functioning well h/o DKA Depression Memory deficit confirmed vascular dementia on SLUMS score of started on Aricept during this admit URI-improved on Nebs Insomnia maintained on Melatonin Plan: Home meds Accuchecks SSI Check labs IRF protocols Updated family on dementia dx Monitor BP closely Aricept 5mg to be maintained Fall prevention Albuterol Neb tx to continue Dry eyes to be treated with refresh tears (1) Autonomic dysfunction with type 2 diabetes mellitus (2) TIA (transient ischemic attack) (3) Anxiety (4) Depression (5) DKA (diabetic ketoacidoses) (6) NPH (normal pressure hydrocephalus) (7) Hypothyroidism (8) Hypertension (9) Falls frequently (10) CVA (cerebral vascular accident) (11) Memory deficit (12) Myocardial infarct, old (13) Presbycusis of both ears (14) Diabetes mellitus, insulin dependent (IDDM), controlled (15) TEACHERS ASSISTANT (ventriculoperitoneal) shunt status GALVEZ,VERONICA DO Sep 18, 2018 10:02
[2018-09-18] MEDS: ASPIRIN E.C. 81 MG (ECOTRIN) TAB PO SCH (10:22)
[2018-09-18] MEDS: FUROSEMIDE 40 MG (LASIX) TAB PO SCH (10:22)
[2018-09-18] MEDS: SERTRALINE 50 MG (ZOLOFT) TABLET PO SCH (10:22)
[2018-09-18] MEDS: SENNA W/DOCUSATE (SENOKOT S) TABLET PO SCH ×2 (10:22→21:15)
[2018-09-18] MEDS: ATORVASTATIN 40 MG (LIPITOR) TABLET PO SCH (10:22)
[2018-09-18] MEDS: CLOPIDOGREL 75 MG (PLAVIX) TABLET PO SCH (10:22)
[2018-09-18] MEDS: LOSARTAN 25 MG (COZAAR) TAB PO SCH (10:22)
--- NOTE | 2018-09-18 11:13 | Physical Therapy Daily Note ---
PT Daily Note-Current Subjective Pt agreeable to PT session Pain Numeric Pain Scale: 0-No Pain Appearance Pt sitting up in recliner upon arrival, awake and alert At end of session, pt sitting up in recliner, chair alarm activated, call light, phone and bedside table within reach Mental Status Patient Orientation: Person, Place, Time, Eyes Open Transfers Therapy Code Descriptions/Definitions Functional [place] Measure: 0=Not Assessed/NA 4=Minimal Assistance 1=Total Assistance 5=Supervision or Setup 2=Maximal Assistance 6=Modified [place] 3=Moderate Assistance 7=Complete [place] Therapy Quality Codes: 6 Independent with activity with or without an assistive device 5 Patient requires set up or clean up by helper. Patient completes activity by themselves 4 Supervision or touching assist (CGA). [place] provide cues , steadying assist 3 The helper provides less than half the effort to complete the activity 2 The helper provides more than half the effort to complete the activity 1 Dependent. The helper does all the effort to complete an activity 7 Patient refused to complete or attempt activity 9 The patient did not perform the activity before the current illness or injury 88 Not attempted due to Medical conditions or safety concerns Transfers (B, C, W/C) (FIM): 5 sit to from stand transfers performed x5 reps, min inst for safety and hand placement, able to stand upon 1st attempt with min effort Weight Bearing Right Lower Extremity: Right Full Weight Bearing Left Lower Extremity: Left Full Weight Bearing Gait Training Does the Patient Walk?: Yes Gait (FIM): 4 Distance (FIM): 3=150 ft Distance: 300 Gait Level of Assist: 4 (CGA during work on increasing step height and heel strike 2^ increased unsteadiness but without LOB) Gait Assistive Device: FWW Treatments transfers, safety, gait, activity tolerance, balance, functional mobility Assessment increasing gait distance with decreasing fatigue although continues to report she is continuing to tire easily PT Short Term Goals Short Term Goals Transfers (B,C,W/C) (FIM): 5 (met) PT Retirement Goals Embedded Systems Developer Goals PT Embedded Systems Developer Goals Time Frame: Oct 09, 2018 Transfers (B,C,W/C) (FIM): 5 Sit to Lying (QC): 5 Lying-Sitting on Side/Bed(QC): 5 Sit to Stand (QC): 5 Rollin Roll Left to Right (QC): 5 Chair/Wwc-lm-Loobs Xfer(QC): 5 Car Transfer (QC): 5 Does the Patient Walk: Yes Gait (FIM): 5 Gait distance (FIM): 3=150 ft Distance: 175' Walk 10 feet (QC): 5 Walk 10ft-Uneven Surface(QC): 5 Walk 50ft with 2 Turns (QC): 5 Walk 150 ft (QC): 5 Gait Level of Assist: 5 Gait Assistive Device: FWW Does the Pt use WC or Scooter?: No Stairs (FIM): 1 # of Steps: 1 1 Step (curb) (QC): 4 4 Steps (QC): 9 12 Steps (QC): 9 Stairs Level Of Assist: 4 Picking up an Object (QC): 4 PT Plan Treatment/Plan Treatment Plan: Continue Plan of Care Treatment Plan: Bed Mobility, Concurrent Therapy, Education, Functional Activity Anjali, Functional Strength, Group Therapy, Gait, Safety, Therapeutic Exercise, Transfers Treatment Duration: Oct 09, 2018 Frequency: At least 5 of 7 days/Wk (IRF) Estimated Hrs Per Day: 1.5 hours per day Patient and/or Family Agrees t: Yes Safety Risks/Education Patient Education: Gait Training, Transfer Techniques, Safety Issues Teaching Recipient: Patient Teaching Methods: Discussion Response to Teaching: Verbalize Understanding, Return Demonstration, Reinforcement Needed Time/GCodes Time In: 1035 Time Out: 1045 Total Billed Treatment Time: 10 Total Billed Treatment 1 visit, GT x 1 unit BRANDY GATES SUPERVISOR PASTRY Sep 18, 2018 11:13
[2018-09-18 16:00] VITALS: BP 104/68
--- NOTE | 2018-09-18 19:05 | NUR ---
bedside report received from CHANDLER MURPHY, assume care of pt
--- NOTE | 2018-09-18 21:15 | NUR ---
assessments & interventions completed, see assessments & interventions, side rails up x4, bed alarm on
[2018-09-18] MEDS: DONEPEZIL 5 MG (ARICEPT) TAB PO SCH (21:22)
--- NOTE | 2018-09-18 21:22 | NUR ---
sharron Vance, fsbs 233 NovoLog 3 units given
[2018-09-18] MEDS: GABAPENTIN 100 MG (NEURONTIN) CAP PO SCH (21:23)
--- NOTE | 2018-09-19 05:08 | NUR ---
fsbs 55 given orebecca & fredy
--- NOTE | 2018-09-19 05:37 | NUR ---
fsbs 83
[2018-09-19 05:46] VITALS: BP 125/70
[2018-09-19] MEDS: inSUlin ASPART (NovoLOG) 1 UNIT/0.01 ML (CHARGE PER UNIT) SC SCH ×4 (06:00→20:50)
[2018-09-19] MEDS: MULTIVIT W/MINERALS TAB (THERAGRAN M) PO SCH (06:35)
[2018-09-19] MEDS: LEVOTHYROXINE 112 MCG (LEVOTHROID) TAB PO SCH (06:35)
--- NOTE | 2018-09-19 07:10 | NUR ---
bedside report given to JAKE MURPHY
[2018-09-19 08:11] VITALS: BP 144/76
[2018-09-19] MEDS: LOSARTAN 25 MG (COZAAR) TAB PO SCH (08:14)
[2018-09-19] MEDS: CLOPIDOGREL 75 MG (PLAVIX) TABLET PO SCH (08:14)
[2018-09-19] MEDS: ATORVASTATIN 40 MG (LIPITOR) TABLET PO SCH (08:14)
[2018-09-19] MEDS: ASPIRIN E.C. 81 MG (ECOTRIN) TAB PO SCH (08:14)
[2018-09-19] MEDS: SERTRALINE 50 MG (ZOLOFT) TABLET PO SCH (08:14)
[2018-09-19] MEDS: FUROSEMIDE 40 MG (LASIX) TAB PO SCH (08:14)
[2018-09-19] MEDS: SENNA W/DOCUSATE (SENOKOT S) TABLET PO SCH ×2 (08:16→20:53)
[2018-09-19] MEDS: RT-ALBUTEROL SULF 2.5 MG/3 ML PRE-MIX VIAL INH SCH ×3 (08:33→20:16)
--- NOTE | 2018-09-19 10:43 | PM&R Progress Note ---
Subjective HPI/CC On Admission Date Seen by Provider: Sep 19, 2018 Time Seen by Provider: 10:45 Chief complaint: Autonomic dysfunction causing multiple and frequent falls History of present illness: This is a 72-year-old white female clinic patient of mine for the past year who has a past medical history of labile and brittle diabetes with history of DKA, hypothyroidism, TIA/CVA, CAD, severe PVD and autonomic dysfunction due to diabetes who presents to the inpatient rehab facility due to multiple ER visits due to multiple and frequent falls. She uses her walker and has been working with outpatient physical therapy at [facility] but has continued to have multiple falls most recently injuring and lacerating her left ear requiring sutures. Blood sugars have been somewhat controlled usual hemoglobin A1c is 8 but she does have labile blood pressure and blood sugar both causing difficulties with function at home. Her prior level of functioning is walking with a walker and needs help performing her ADLs by her and daughter. She does see Dr. Jacinto neurology who is been trying to work with her neuropathy placing her at more risk for falls. She is in need of fall prevention to decrease risk for further injury and strengthening and stamina building for ambulation and improve independent ADLs. Subjective/Events-last exam Had a BM this morning and now very regular with the help of meds prn Blood sugar is varied but trying to not cause hypoglycemia Using IS and cough is improved Cough is almost non-existent Aricept overall well tolerated and really helping and that has made a world of difference Melatonin really helping her sleep better Having dry eyes so drops will be placed and that seems to be helping Reviewed therapy notes. 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 of Systems General: Fatigue Neurological: Confusion Objective Exam Vital Signs Vital Signs Date Time Temp Pulse Resp B/P (MAP) Pulse Ox O2 Delivery O2 Flow Rate FiO2 09/19/18 09:44 Room Air 09/19/18 08:33 94 09/19/18 08:11 87 144/76 (98) 09/19/18 05:46 96.6 18 Capillary Refill : General Appearance: No Apparent Distress, WD/WN, Chronically ill, Other (frail, pale) HEENT: PERRL/EOMI, Normal ENT Inspection, Pharynx Normal, Moist Mucous Membranes Neck: Full Range of Motion, Normal Inspection, Non Tender, Supple Respiratory: Chest Non Tender, Lungs Clear, Normal Breath Sounds, No Accessory Muscle Use, No Respiratory Distress Cardiovascular: Regular Rate, Rhythm, No Edema, No Gallop, No JVD, No Murmur Gastrointestinal: Normal Bowel Sounds, No Organomegaly, No Pulsatile Mass, Non Tender, Soft Back: Normal Inspection, No CVA Tenderness, No Vertebral Tenderness Extremity: Normal Capillary Refill, Normal Inspection, Normal Range of Motion, Non Tender, No Calf Tenderness, No Pedal Edema Neurologic/Psychiatric: Alert, Oriented x3 (poor memory recall), Normal Mood/Affect, developmental psychologist II-XII Norm as Tested, Abnormal Gait, Disoriented (poor recall), Motor Weakness (generalized bilateral lower legs), Sensory Deficit (lower legs to feet) Skin: Normal Color, Warm/Dry Lymphatic: No Adenopathy Results/Procedures Lab Patient resulted labs reviewed. FIM Transfers Therapy Code Descriptions/Definitions Functional [place] Measure: 0=Not Assessed/NA 4=Minimal Assistance 1=Total Assistance 5=Supervision or Setup 2=Maximal Assistance 6=Modified [place] 3=Moderate Assistance 7=Complete [place] Therapy Quality Codes: 6 Independent with activity with or without an assistive device 5 Patient requires set up or clean up by helper. Patient completes activity by themselves 4 Supervision or touching assist (CGA). [place] provide cues , steadying assist 3 The helper provides less than half the effort to complete the activity 2 The helper provides more than half the effort to complete the activity 1 Dependent. The helper does all the effort to complete an activity 7 Patient refused to complete or attempt activity 9 The patient did not perform the activity before the current illness or injury 88 Not attempted due to Medical conditions or safety concerns Transfers (B, C, W/C) (FIM): 5 Scootin Rollin Roll Left to Right (QC): 4 Supine to/from Sit: 5 Sit to/from Stand: 5 Sit to Lying (QC): 5 Sit to Stand (QC): 5 (skilled cues for hand placement and sequencing) Chair/Jfl-dr-Bfqqt Xfer(QC): 4 Bed to/from Chair: 5 Car Transfer (QC): 5 Gait Training Does the Patient Walk?: Yes Gait (FIM): 4 Distance (FIM): 3=150 ft Distance: 300 Walk 10 feet (QC): 4 Walk 50 ft with 2 Turns(QC): 4 Walk 150 ft (QC): 4 Walking 10ft/uneven surface-QC: 4 Gait Level of Assist: 4 (CGA during work on increasing step height and heel strike 2^ increased unsteadiness but without LOB) Gait Persons Needed: 1 Gait Assistive Device: FWW Wheelchair Training Does the Pt Use a Wheelchair?: No Stair Training Stair Training: Handrails/: 2 handrails Stairs (FIM): 4 #of Steps: 8 1 Step (curb) (QC): 3 4 Steps (QC): 9 12 Steps (QC): 9 Stairs: Pattern: Step to Level of Assist: 4 Mental Status/Objective Comprehension: 5 Expression: 5 Social Interaction: 5 Problem Solvin Memory: 4 ADL-Treatment Feedin (set up) Eating (QC): 4 Groomin Oral Hygiene (QC): 4 Bathin Bathing Location: L Arm, R Arm, L Upper Leg, R Upper Leg, Chest, Abdomen, Bu ttocks, Perineal Area Shower/Bathe Self (QC): 3 Upper Extremity Dressin Upper Body Dressing (QC): 4 Lower Extremity Dressin Lower Body Dressing (QC): 3 On/Off Footwear (QC): 3 Toiletin (CGA in standing to manipulate clothing. 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 recently assessed to be functioning well h/o DKA Depression Memory deficit confirmed vascular dementia on SLUMS score of started on Aricept during this admit URI-improved on Nebs Insomnia maintained on Melatonin Plan: Home meds Accuchecks SSI Check labs IRF protocols Updated family on dementia dx Monitor BP closely Aricept 5mg to be maintained Fall prevention Albuterol Neb tx to continue Dry eyes to be treated with refresh tears (1) Autonomic dysfunction with type 2 diabetes mellitus (2) TIA (transient ischemic attack) (3) Anxiety (4) Depression (5) DKA (diabetic ketoacidoses) (6) NPH (normal pressure hydrocephalus) (7) Hypothyroidism (8) Hypertension (9) Falls frequently (10) CVA (cerebral vascular accident) (11) Memory deficit (12) Myocardial infarct, old (13) Presbycusis of both ears (14) Diabetes mellitus, insulin dependent (IDDM), controlled (15) CAROUSEL OPERATOR (ventriculoperitoneal) shunt status VERONICA GALVEZ DO Sep 19, 2018 10:43
--- NOTE | 2018-09-19 10:45 | NUR ---
Dr. Velarde to floor. Informed of low blood sugar this AM. No new orders rec'd.
--- NOTE | 2018-09-19 11:00 | NUR ---
FSBS is 503. Orders to monitor elevated readings only. 8 units of insulin given per SS.
[2018-09-19 15:55] VITALS: BP 112/57
[2018-09-19] MEDS: ARTIFICAL TEARS 0.4 ML UNIT DOSE (REFRESH PLUS) OD PRN ×2 (16:27→20:48)
--- NOTE | 2018-09-19 19:06 | NUR ---
bedside report received from JAKE MURPHY, assume care of pt
[2018-09-19] MEDS: GABAPENTIN 100 MG (NEURONTIN) CAP PO SCH (20:48)
[2018-09-19] MEDS: MELATONIN 3 MG TABLET PO PRN (20:48)
[2018-09-19] MEDS: DONEPEZIL 5 MG (ARICEPT) TAB PO SCH (20:49)
--- NOTE | 2018-09-19 20:49 | NUR ---
pt refused Senokot, fsbs 288 NovoLog 5 units given
--- NOTE | 2018-09-19 21:00 | NUR ---
assessments & interventions completed, see assessments & interventions, pt c/o dry itching eyes, found pt rubbing eyes advised not to touch eyes due to hands unclean
[2018-09-20 05:50] VITALS: BP 132/73
[2018-09-20] MEDS: inSUlin ASPART (NovoLOG) 1 UNIT/0.01 ML (CHARGE PER UNIT) SC SCH ×4 (06:00→20:42)
[2018-09-20] MEDS: LEVOTHYROXINE 112 MCG (LEVOTHROID) TAB PO SCH (06:37)
[2018-09-20] MEDS: MULTIVIT W/MINERALS TAB (THERAGRAN M) PO SCH (06:38)
--- NOTE | 2018-09-20 07:08 | NUR ---
bedside report given to CHANDLER MURPHY
[2018-09-20] MEDS: RT-ALBUTEROL SULF 2.5 MG/3 ML PRE-MIX VIAL INH SCH ×3 (07:11→21:58)
--- NOTE | 2018-09-20 08:57 | Physical Therapy Daily Note ---
PT Daily Note-Current Subjective Patient in bed pre tx, agrees to PT, has no complaints of pain. Appearance Patient in bed post tx with nurse call, phone, tray, all needs met. Patient has OT right after PT. Mental Status Patient Orientation: Person, Confused Transfers Therapy Code Descriptions/Definitions Functional [place] Measure: 0=Not Assessed/NA 4=Minimal Assistance 1=Total Assistance 5=Supervision or Setup 2=Maximal Assistance 6=Modified [place] 3=Moderate Assistance 7=Complete [place] Therapy Quality Codes: 6 Independent with activity with or without an assistive device 5 Patient requires set up or clean up by helper. Patient completes activity by themselves 4 Supervision or touching assist (CGA). [place] provide cues , steadying assist 3 The helper provides less than half the effort to complete the activity 2 The helper provides more than half the effort to complete the activity 1 Dependent. The helper does all the effort to complete an activity 7 Patient refused to complete or attempt activity 9 The patient did not perform the activity before the current illness or injury 88 Not attempted due to Medical conditions or safety concerns Transfers (B, C, W/C) (FIM): 4 Scootin Rollin Supine to/from Sit: 4 Sit to/from Stand: 5 Bed to/from Chair: 4 Patient needed min assist for scooting and supine to sit today and CGA for transfers. She has a tendency to get her feet out from behind her walker when turning and needs cues for hand placement when standing and sitting. Weight Bearing Right Lower Extremity: Right Full Weight Bearing Left Lower Extremity: Left Full Weight Bearing Gait Training Gait (FIM): 4 Distance: 150'x2 Gait Level of Assist: 4 Gait Persons Needed: 1 Gait Assistive Device: FWW Mostly SBA but needs CGA when turning. Cues for direction, very slow ambulation. Exercises Seated Therapy Exercises: Ankle pumps, Hip flexion, Hip abd/add (with RTB and pillow) Seated Reps: 20 LAQ alternating with 2# ankle weights for 5 min, sit to stands 3 sets of 10 Treatments LE exercise, ambulation, bed mobility and transfers Assessment Current Status: Fair Progress improving general mobility PT Short Term Goals Short Term Goals Transfers (B,C,W/C) (FIM): 5 (met) PT Fdc Goals Fdc Goals PT Fdc Goals Time Frame: Oct 09, 2018 Transfers (B,C,W/C) (FIM): 5 Sit to Lying (QC): 5 Lying-Sitting on Side/Bed(QC): 5 Sit to Stand (QC): 5 Rollin Roll Left to Right (QC): 5 Chair/Mjh-wa-Nspyn Xfer(QC): 5 Car Transfer (QC): 5 Does the Patient Walk: Yes Gait (FIM): 5 Gait distance (FIM): 3=150 ft Distance: 175' Walk 10 feet (QC): 5 Walk 10ft-Uneven Surface(QC): 5 Walk 50ft with 2 Turns (QC): 5 Walk 150 ft (QC): 5 Gait Level of Assist: 5 Gait Assistive Device: FWW Does the Pt use WC or Scooter?: No Stairs (FIM): 1 # of Steps: 1 1 Step (curb) (QC): 4 4 Steps (QC): 9 12 Steps (QC): 9 Stairs Level Of Assist: 4 Picking up an Object (QC): 4 PT Plan Problem List Problem List: Activity Tolerance, Functional Strength, Safety, Balance, Gait, Transfer, Bed Mobility Treatment/Plan Treatment Plan: Continue Plan of Care Treatment Plan: Bed Mobility, Concurrent Therapy, Education, Functional Activity Anjali, Functional Strength, Group Therapy, Gait, Safety, Therapeutic Exercise, Transfers Treatment Duration: Oct 09, 2018 Frequency: At least 5 of 7 days/Wk (IRF) Estimated Hrs Per Day: 1.5 hours per day Patient and/or Family Agrees t: Yes Safety Risks/Education Patient Education: Gait Training, Transfer Techniques, Correct Positioning, Safety Issues Teaching Recipient: Patient Teaching Methods: Demonstration, Discussion Response to Teaching: Reinforcement Needed Time/GCodes Time In: 0800 Time Out: 0900 Total Billed Treatment Time: 60 Total Billed Treatment 1 visit GT 25' EX 35' ALMA BERGERON PT Sep 20, 2018 08:57
--- NOTE | 2018-09-20 09:13 | PM&R Progress Note ---
Subjective HPI/CC On Admission Date Seen by Provider: Sep 20, 2018 Time Seen by Provider: 09:15 Chief complaint: Autonomic dysfunction causing multiple and frequent falls History of present illness: This is a 72-year-old white female clinic patient of mine for the past year who has a past medical history of labile and brittle diabetes with history of DKA, hypothyroidism, TIA/CVA, CAD, severe PVD and autonomic dysfunction due to diabetes who presents to the inpatient rehab facility due to multiple ER visits due to multiple and frequent falls. She uses her walker and has been working with outpatient physical therapy at [facility] but has continued to have multiple falls most recently injuring and lacerating her left ear requiring sutures. Blood sugars have been somewhat controlled usual hemoglobin A1c is 8 but she does have labile blood pressure and blood sugar both causing difficulties with function at home. Her prior level of functioning is walking with a walker and needs help performing her ADLs by her and daughter. She does see Dr. Jacinto neurology who is been trying to work with her neuropathy placing her at more risk for falls. She is in need of fall prevention to decrease risk for further injury and strengthening and stamina building for ambulation and improve independent ADLs. Subjective/Events-last exam Bowels are moving on her own without the use of stool softeners. She keeps on touching her eyes and the dry eye syndrome seems to be helped by refresh tears but trying to help Pt prevent eye infections by cessation of touching her eyes. Aricept seems to be really helping her cognitive decline and that is helping stabilize her and prevent falls. Overall doing very well, denies any pain. Cough is resolved. Conferred with RN. Reviewed therapy notes. Review of Systems General: Fatigue Neurological: Confusion Objective Exam Vital Signs Vital Signs Date Time Temp Pulse Resp B/P (MAP) Pulse Ox O2 Delivery O2 Flow Rate FiO2 09/20/18 17:22 98.0 94 16 138/73 (94) 95 Room Air Capillary Refill : General Appearance: No Apparent Distress, WD/WN, Chronically ill, Other (frail, pale) HEENT: PERRL/EOMI, Normal ENT Inspection, Pharynx Normal, Moist Mucous Membranes, Other (decreased hearing ) Neck: Full Range of Motion, Normal Inspection, Non Tender, Supple Respiratory: Chest Non Tender, Lungs Clear, Normal Breath Sounds, No Accessory Muscle Use, No Respiratory Distress Cardiovascular: Regular Rate, Rhythm, No Edema, No Gallop, No JVD, No Murmur Gastrointestinal: Normal Bowel Sounds, No Organomegaly, No Pulsatile Mass, Non Tender, Soft Back: Normal Inspection, No CVA Tenderness, No Vertebral Tenderness Extremity: Normal Capillary Refill, Normal Inspection, Normal Range of Motion, Non Tender, No Calf Tenderness, No Pedal Edema Neurologic/Psychiatric: Alert, Oriented x3 (poor memory recall), Normal Mood/Affect, brush clearer surveying II-XII Norm as Tested, Abnormal Gait, Disoriented (poor recall much improved), Motor Weakness (generalized bilateral lower legs), Sensory Deficit (lower legs to feet) Skin: Normal Color, Warm/Dry Lymphatic: No Adenopathy Results/Procedures Lab Patient resulted labs reviewed. FIM Transfers Therapy Code Descriptions/Definitions Functional [place] Measure: 0=Not Assessed/NA 4=Minimal Assistance 1=Total Assistance 5=Supervision or Setup 2=Maximal Assistance 6=Modified [place] 3=Moderate Assistance 7=Complete [place] Therapy Quality Codes: 6 Independent with activity with or without an assistive device 5 Patient requires set up or clean up by helper. Patient completes activity by themselves 4 Supervision or touching assist (CGA). [place] provide cues , steadying assist 3 The helper provides less than half the effort to complete the activity 2 The helper provides more than half the effort to complete the activity 1 Dependent. The helper does all the effort to complete an activity 7 Patient refused to complete or attempt activity 9 The patient did not perform the activity before the current illness or injury 88 Not attempted due to Medical conditions or safety concerns Transfers (B, C, W/C) (FIM): 4 Scootin Rollin Roll Left to Right (QC): 4 Supine to/from Sit: 4 Sit to/from Stand: 5 Sit to Lying (QC): 5 Sit to Stand (QC): 5 (skilled cues for hand placement and sequencing) Chair/Ptx-if-Hbnaf Xfer(QC): 4 Bed to/from Chair: 4 Car Transfer (QC): 5 Gait Training Does the Patient Walk?: Yes Gait (FIM): 4 Distance (FIM): 3=150 ft Distance: 150'x2 Walk 10 feet (QC): 4 Walk 50 ft with 2 Turns(QC): 4 Walk 150 ft (QC): 4 Walking 10ft/uneven surface-QC: 4 Gait Level of Assist: 4 Gait Persons Needed: 1 Gait Assistive Device: FWW Wheelchair Training Does the Pt Use a Wheelchair?: No Stair Training Stair Training: Handrails/: 2 handrails Stairs (FIM): 4 #of Steps: 8 1 Step (curb) (QC): 3 4 Steps (QC): 9 12 Steps (QC): 9 Stairs: Pattern: Step to Level of Assist: 4 Mental Status/Objective Comprehension: 5 Expression: 5 Social Interaction: 5 Problem Solvin Memory: 4 ADL-Treatment Feedin (set up) Eating (QC): 4 Groomin Oral Hygiene (QC): 4 Bathin Bathing Location: L Arm, R Arm, L Upper Leg, R Upper Leg, Chest, Abdomen, Buttocks, Perineal Area Shower/Bathe Self (QC): 3 Upper Extremity Dressin Upper Body Dressing (QC): 4 Lower Extremity Dressin Lower Body Dressing (QC): 3 On/Off Footwear (QC): 3 Toiletin (CGA in standing to manipulate clothing. 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 recently assessed to be functioning well h/o DKA Depression Memory deficit confirmed vascular dementia on SLUMS score of started on Aricept during this admit URI-improved on Nebs Insomnia maintained on Melatonin Plan: Home meds Accuchecks SSI Check labs IRF protocols Updated family on dementia dx Monitor BP closely Aricept 5mg to be maintained Fall prevention Albuterol Neb tx to continue Dry eyes to be treated with refresh tears Continues to improve (1) Autonomic dysfunction with type 2 diabetes mellitus (2) TIA (transient ischemic attack) (3) Anxiety (4) Depression (5) DKA (diabetic ketoacidoses) (6) NPH (normal pressure hydrocephalus) (7) Hypothyroidism (8) Hypertension (9) Falls frequently (10) CVA (cerebral vascular accident) (11) Memory deficit (12) Myocardial infarct, old (13) Presbycusis of both ears (14) Diabetes mellitus, insulin dependent (IDDM), controlled (15) PRODUCTION MINER (ventriculoperitoneal) shunt status VERONICA GALVEZ DO Sep 20, 2018 09:13
--- NOTE | 2018-09-20 09:55 | Occupational Ther Daily Note ---
OT Current Status-Daily Note Subjective Pt sleeping in bed, woke to name. Pt agrees to therapy. No c/o pain. Mental Status/Objective Patient Orientation: Person, Place, Time, Situation Therapy Code Descriptions/Definitions Functional [place] Measure: 0=Not Assessed/NA 4=Minimal Assistance 1=Total Assistance 5=Supervision or Setup 2=Maximal Assistance 6=Modified [place] 3=Moderate Assistance 7=Complete [place] ADL-Treatment Pt declined shower, dressing and grooming. Requested to use bathroom. Ambulated using FWW with CGA for safety. Transferred using FWW and grabbars with close SBA. Pt manipulated clothing with SBA and cleansed self sitting on toilet. Pt ambulated to sink to wash hands, stabilized self with sink counter. LOB, assist needed to right self. Therapy Code Descriptions/Definitions Functional [place] Measure: 0=Not Assessed/NA 4=Minimal Assistance 1=Total Assistance 5=Supervision or Setup 2=Maximal Assistance 6=Modified [place] 3=Moderate Assistance 7=Complete [place] Therapy Quality Codes: 6 Independent with activity with or without an assistive device 5 Patient requires set up or clean up by helper. Patient completes activity by themselves 4 Supervision or touching assist (CGA). [place] provide cues , steadying assist 3 The helper provides less than half the effort to complete the activity 2 The helper provides more than half the effort to complete the activity 1 Dependent. The helper does all the effort to complete an activity 7 Patient refused to complete or attempt activity 9 The patient did not perform the activity before the current illness or injury 88 Not attempted due to Medical conditions or safety concerns Toileting (FIM): 5 Toileting Hygiene (QC): 4 Toilet/Commode Transfer (FIM): 5 Toilet Transfer (QC): 4 Other Treatment Pt ambulated to therapy gym to complete UE exercises to increase strength and activity tolerance. Arm bike 15 min at 20 farah resistance completed, pt needed cues to continue rotation when focusing on other conversations in gym. Standing at table to complete 25 pegs into peg board to work on standing balance. After therapy, pt lying in bed with call light/phone in reach. All needs met in room. OT Short Term Goals Short Term Goals Time Frame: Sep 24, 2018 Eating(FIM): 6 Grooming(FIM): 5 Bathing(FIM): 5 Upper Body Dressing(FIM): 5 Lower Body Dressing(FIM): 5 Toileting(FIM): 5 Transfers (B,C,W/C) (FIM): 5 (met) Toilet/Commode Transfer(FIM): 5 Tub Transfer(FIM): 5 Shower Transfer(FIM): 5 1=Demonstrate adherence to instructed precautions during ADL tasks. 2=Patient will verbalize/demonstrate understanding of assistive devices/modifications for ADL. 3=Patient will improve strength/tolerance for activity to enable patient to perform ADL's. OT Retail Department Supervisor Goals Retail Department Supervisor Goals Time Frame: Oct 08, 2018 Eating (FIM): 6 Eating (QC): 6 Groomin Oral Hygiene (QC): 6 Bathing(FIM): 6 Bathing Location: L Arm, R Arm, L Upper Leg, R Upper Leg, L Lower Leg (including foot), R Lower Leg (including foot), Chest, Abdomen, Buttocks, Perineal Area Shower/Bathe Self (QC): 6 Upper Body Dressing(FIM): 6 Upper Body Dressing (QC): 6 Lower Body Dressing(FIM): 6 Lower Body Dressing (QC): 6 On/Off Footwear (QC): 6 Toileting(FIM): 6 Toileting Hygiene (QC): 6 Transfers (B,C,W/C) (FIM): 6 Toilet/Commode Transfer(FIM): 6 Toilet/Commode Transfer (QC): 6 Tub Transfer(FIM): 6 Shower Transfer(FIM): 6 Additional Goals: 1-Demonstrate ADL Tasks, 2-Verbalize Understanding, 3- ImproveStrength/Anjali 1=Demonstrate adherence to instructed precautions during ADL tasks. 2=Patient will verbalize/demonstrate understanding of assistive devices/modifications for ADL. 3=Patient will improve strength/tolerance for activity to enable patient to perform ADL's. OT Education/Plan Problem List/Assessment Assessment: Decreased Activ Tolerance, Decreased UE Strength, Impaired Coordination, Impaired Funct Balance, Impaired Self-Care Skills Discharge Recommendations Plan/Recommendations: Continue POC Treatment Plan/Plan of Care Patient would benefit from OT for education, treatment and training to promote independence in ADL's, mobility, safety and/or upper extremity function for ADL's. Plan of Care: ADL Retraining, Caregiver Training, Cognitive Retraining, Concurrent Therapy, Functional Mobility, Group Exercise/Act as Ind, UE Funct Exercise/Act, UE Neuromus Re-Ed/Coord, Visual/Perceptual Retrain Treatment Duration: Oct 08, 2018 Frequency: At least 5 of 7 days/Wk (IRF) Estimated Hrs Per Day: 1.5 hours per day Rehab Potential: Fair Time/GCodes Start Time: 09:00 Stop Time: 10:00 Total Time Billed (hr/min): 60 Billed Treatment Time 1 visit-ADL 2 (25 min) EX 2 (35 min) ANA JULIEN Sep 20, 2018 09:55
[2018-09-20] MEDS: SERTRALINE 50 MG (ZOLOFT) TABLET PO SCH (09:56)
[2018-09-20] MEDS: CLOPIDOGREL 75 MG (PLAVIX) TABLET PO SCH (09:56)
[2018-09-20] MEDS: ASPIRIN E.C. 81 MG (ECOTRIN) TAB PO SCH (09:56)
[2018-09-20] MEDS: FUROSEMIDE 40 MG (LASIX) TAB PO SCH (09:56)
[2018-09-20] MEDS: ATORVASTATIN 40 MG (LIPITOR) TABLET PO SCH (09:56)
[2018-09-20] MEDS: SENNA W/DOCUSATE (SENOKOT S) TABLET PO SCH ×2 (09:56→20:41)
[2018-09-20] MEDS: LOSARTAN 25 MG (COZAAR) TAB PO SCH (09:56)
--- NOTE | 2018-09-20 13:32 | Physical Therapy Daily Note ---
PT Daily Note-Current Subjective Wants to take a nap after therapy this afternoon. Transfers Therapy Code Descriptions/Definitions Functional [place] Measure: 0=Not Assessed/NA 4=Minimal Assistance 1=Total Assistance 5=Supervision or Setup 2=Maximal Assistance 6=Modified [place] 3=Moderate Assistance 7=Complete [place] Therapy Quality Codes: 6 Independent with activity with or without an assistive device 5 Patient requires set up or clean up by helper. Patient completes activity by themselves 4 Supervision or touching assist (CGA). [place] provide cues , steadying assi st 3 The helper provides less than half the effort to complete the activity 2 The helper provides more than half the effort to complete the activity 1 Dependent. The helper does all the effort to complete an activity 7 Patient refused to complete or attempt activity 9 The patient did not perform the activity before the current illness or injury 88 Not attempted due to Medical conditions or safety concerns Transfers (B, C, W/C) (FIM): 5 Supine to/from Sit: 5 Sit to/from Stand: 5 SBA with transfers for safety Weight Bearing Right Lower Extremity: Right Full Weight Bearing Left Lower Extremity: Left Full Weight Bearing Gait Training Does the Patient Walk?: Yes Gait (FIM): 4 Distance (FIM): 3=150 ft Distance: 150 ft Gait Assistive Device: FWW slow gait with forward flexed hips and decreased foot clearance and step length. Stair Training Stair Training: Handrails/: 2 handrails Stairs (FIM): 2 Stairs: Pattern: Step to up/down 4 steps with CGA with skilled cues for safety Assessment Current Status: Good Progress No LOB episodes. Pt is appearing stronger. Did well with transfers. Tired this afternoon PT Short Term Goals Short Term Goals Transfers (B,C,W/C) (FIM): 5 (met) PT Book Sorter Goals Detention Goals PT Detention Goals Time Frame: Oct 09, 2018 Transfers (B,C,W/C) (FIM): 5 Sit to Lying (QC): 5 Lying-Sitting on Side/Bed(QC): 5 Sit to Stand (QC): 5 Rollin Roll Left to Right (QC): 5 Chair/Xeh-fk-Upqla Xfer(QC): 5 Car Transfer (QC): 5 Does the Patient Walk: Yes Gait (FIM): 5 Gait distance (FIM): 3=150 ft Distance: 175' Walk 10 feet (QC): 5 Walk 10ft-Uneven Surface(QC): 5 Walk 50ft with 2 Turns (QC): 5 Walk 150 ft (QC): 5 Gait Level of Assist: 5 Gait Assistive Device: FWW Does the Pt use WC or Scooter?: No Stairs (FIM): 1 # of Steps: 1 1 Step (curb) (QC): 4 4 Steps (QC): 9 12 Steps (QC): 9 Stairs Level Of Assist: 4 Picking up an Object (QC): 4 PT Plan Problem List Problem List: Activity Tolerance, Functional Strength, Safety Treatment/Plan Treatment Plan: Continue Plan of Care Treatment Plan: Bed Mobility, Concurrent Therapy, Education, Functional Activity Anjali, Functional Strength, Group Therapy, Gait, Safety, Therapeutic Exercise, Transfers Treatment Duration: Oct 09, 2018 Frequency: At least 5 of 7 days/Wk (IRF) Estimated Hrs Per Day: 1.5 hours per day Patient and/or Family Agrees t: Yes Safety Risks/Education Patient Education: Safety Issues Teaching Recipient: Patient Teaching Methods: Discussion Response to Teaching: Reinforcement Needed Discharge Recommendations Therapy D/C Recommendations: Physical Therapy Home Care Time/GCodes Time In: 1315 Time Out: 1330 Total Billed Treatment Time: 15 Total Billed Treatment visit GT 15 ANA DIALLO PT Sep 20, 2018 13:32
--- NOTE | 2018-09-20 13:37 | Occupational Ther Daily Note ---
OT Current Status-Daily Note Subjective Pt alert, sitting in recliner. Pt agrees to therapy. No c/o pain at this time. Mental Status/Objective Patient Orientation: Person, Place, Time, Situation Therapy Code Descriptions/Definitions Functional [place] Measure: 0=Not Assessed/NA 4=Minimal Assistance 1=Total Assistance 5=Supervision or Setup 2=Maximal Assistance 6=Modified [place] 3=Moderate Assistance 7=Complete [place] ADL-Treatment Therapy Code Descriptions/Definitions Functional [place] Measure: 0=Not Assessed/NA 4=Minimal Assistance 1=Total Assistance 5=Supervision or Setup 2=Maximal Assistance 6=Modified [place] 3=Moderate Assistance 7=Complete [place] Therapy Quality Codes: 6 Independent with activity with or without an assistive device 5 Patient requires set up or clean up by helper. Patient completes activity by themselves 4 Supervision or touching assist (CGA). [place] provide cues , steadying assist 3 The helper provides less than half the effort to complete the activity 2 The helper provides more than half the effort to complete the activity 1 Dependent. The helper does all the effort to complete an activity 7 Patient refused to complete or attempt activity 9 The patient did not perform the activity before the current illness or injury 88 Not attempted due to Medical conditions or safety concerns Other Treatment Pt ambulated to therapy gym using FWW with CGA. Pt worked on dynamic standing balance for functional dressing while hiking pants over hips. Pt able to complete with CGA, assist to right self after LOB. After therapy, PT took over care of pt in therapy gym. All needs met in room. OT Short Term Goals Short Term Goals Time Frame: Sep 24, 2018 Eating(FIM): 6 Grooming(FIM): 5 Bathing(FIM): 5 Upper Body Dressing(FIM): 5 Lower Body Dressing(FIM): 5 Toileting(FIM): 5 Transfers (B,C,W/C) (FIM): 5 (met) Toilet/Commode Transfer(FIM): 5 Tub Transfer(FIM): 5 Shower Transfer(FIM): 5 1=Demonstrate adherence to instructed precautions during ADL tasks. 2=Patient will verbalize/demonstrate understanding of assistive alfredo aria/modifications for ADL. 3=Patient will improve strength/tolerance for activity to enable patient to perform ADL's. OT Fci Goals Greenhouse Manager Goals Time Frame: Oct 08, 2018 Eating (FIM): 6 Eating (QC): 6 Groomin Oral Hygiene (QC): 6 Bathing(FIM): 6 Bathing Location: L Arm, R Arm, L Upper Leg, R Upper Leg, L Lower Leg (inclu ding foot), R Lower Leg (including foot), Chest, Abdomen, Buttocks, Perineal Area Shower/Bathe Self (QC): 6 Upper Body Dressing(FIM): 6 Upper Body Dressing (QC): 6 Lower Body Dressing(FIM): 6 Lower Body Dressing (QC): 6 On/Off Footwear (QC): 6 Toileting(FIM): 6 Toileting Hygiene (QC): 6 Transfers (B,C,W/C) (FIM): 6 Toilet/Commode Transfer(FIM): 6 Toilet/Commode Transfer (QC): 6 Tub Transfer(FIM): 6 Shower Transfer(FIM): 6 Additional Goals: 1-Demonstrate ADL Tasks, 2-Verbalize Understanding, 3- ImproveStrength/Anjali 1=Demonstrate adherence to instructed precautions during ADL tasks. 2=Patient will verbalize/demonstrate understanding of assistive devices/modifications for ADL. 3=Patient will improve strength/tolerance for activity to enable patient to perform ADL's. OT Education/Plan Problem List/Assessment Assessment: Decreased Activ Tolerance, Impaired Coordination, Impaired Funct Balance, Restricted Funct UE ROM Discharge Recommendations Plan/Recommendations: Continue POC Treatment Plan/Plan of Care Patient would benefit from OT for education, treatment and training to promote independence in ADL's, mobility, safety and/or upper extremity function for ADL's. Plan of Care: ADL Retraining, Caregiver Training, Cognitive Retraining, Concurrent Therapy, Functional Mobility, Group Exercise/Act as Ind, UE Funct Exercise/Act, UE Neuromus Re-Ed/Coord, Visual/Perceptual Retrain Treatment Duration: Oct 08, 2018 Frequency: At least 5 of 7 days/Wk (IRF) Estimated Hrs Per Day: 1.5 hours per day Rehab Potential: Fair Time/GCodes Start Time: 13:00 Stop Time: 13:15 Total Time Billed (hr/min): 15 Billed Treatment Time 1 visit-NM 1 (15 min) ANA JULIEN Sep 20, 2018 13:37
--- NOTE | 2018-09-20 16:00 | Speech Therapy Daily Note ---
Speech Daily Progress Note Subjective Date Seen by Provider: Sep 20, 2018 Time Seen by Provider: 00:30 The patient was resting in her recliner when I entered her room. Objective The patient completed memory tasks today at 75% with moderate verbal cues and/or repetitions. Assessment Assessment Current Status: Fair Progress Treatment Plan Continue Plan of Care Communication Comprehension: 5 Expression: 5 Social Cognition Social Interaction: 5 Problem Solvin Memory: 4 Speech Short Term Goals Short Term Goals Short Term Goals 1) The patient will complete memory exercises related to her daily needs with 90% accuracy given minimal verbal cues. 2) The patient will complete problem solving exercises related to her daily needs with 90% accuracy given minimal verbal cues. 3) The patient will complete simple 1-3 step directions related to her daily needs with 90% accuracy given minimal verbal cues. Speech Audio Visual Technician Goals Audio Visual Technician Goals The patient will complete cognitive function exercises in order to return home safely. Speech-Plan Patient/Family Goals Patient/Family Goals: The patient plans on returning home with her post rehab. Treatment Plan Speech Therapy Treatment Plan: Continue Plan of Care The patient is hoping to be discharged in the next day or so. Treatment Duration: Sep 24, 2018 Frequency: 5 times per week Estimated Hrs Per Day: .5 hour per day Rehab Potential: Fair Barriers to Learning: Memory deficit Pt/Family Agrees to Plan: Yes Safety Risks/Education Teaching Recipient: Patient Teaching Methods: Demonstration, Discussion Response to Teaching: Verbalize Understanding, Return Demonstration Education Topics Provided: Safety upon her return home. Time Speech Therapy Time In: 11:30 Speech Therapy Time Out: 12:00 Total Billed Time: 30 Billed Treatment Time 1[address] Sep 20, 2018 16:00
[2018-09-20 17:22] VITALS: BP 138/73
[2018-09-20] MEDS: MELATONIN 3 MG TABLET PO PRN (20:41)
[2018-09-20] MEDS: DONEPEZIL 5 MG (ARICEPT) TAB PO SCH (20:41)
[2018-09-20] MEDS: GABAPENTIN 100 MG (NEURONTIN) CAP PO SCH (20:41)
[2018-09-21] MEDS: inSUlin ASPART (NovoLOG) 1 UNIT/0.01 ML (CHARGE PER UNIT) SC SCH ×4 (05:43→20:31)
[2018-09-21] MEDS: LEVOTHYROXINE 112 MCG (LEVOTHROID) TAB PO SCH (05:43)
[2018-09-21] MEDS: MULTIVIT W/MINERALS TAB (THERAGRAN M) PO SCH (05:43)
[2018-09-21 06:03] VITALS: BP 137/74
[2018-09-21 06:12] LABS: BASOPHILS # (AUTO) 0.1 10^3/uL (0.0-0.1); BASOPHILS % (AUTO) 1 % (0-10); EOSINOPHILS # (AUTO) 0.4 10^3/uL (0.0-0.3); EOSINOPHILS % (AUTO) 4 % (0-10); HEMATOCRIT 34 % (35-52); HEMOGLOBIN 10.6 G/DL (11.5-16.0); LYMPHOCYTES # (AUTO) 2.2 X 10^3 (1.0-4.0); LYMPHOCYTES % (AUTO) 23 % (12-44); MEAN CORPUSCULAR HEMOGLOBIN 28 PG (25-34); MEAN CORPUSCULAR HGB CONC 31 G/DL (32-36); MEAN CORPUSCULAR VOLUME 90 FL (80-99); MEAN PLATELET VOLUME 11.5 FL (7.4-10.4); MONOCYTES # (AUTO) 0.7 X 10^3 (0.0-1.0); MONOCYTES % (AUTO) 7 % (0-12); NEUTROPHILS # (AUTO) 6.5 X 10^3 (1.8-7.8); NEUTROPHILS % (AUTO) 67 % (42-75); PLATELET COUNT 336 10^3/uL (130-400); RED CELL DISTRIBUTION WIDTH 14.1 % (10.0-14.5); WHITE BLOOD COUNT 9.8 10^3/uL (4.3-11.0)
[2018-09-21 06:39] LABS: ALBUMIN 3.4 GM/DL (3.2-4.5); BILIRUBIN,TOTAL 0.3 MG/DL (0.1-1.0); CALCIUM 9.2 MG/DL (8.5-10.1); CREATININE SERUM 0.97 MG/DL (0.60-1.30); POTASSIUM 4.6 MMOL/L (3.6-5.0); TOTAL PROTEIN 6.6 GM/DL (6.4-8.2)
[2018-09-21] MEDS: CLOPIDOGREL 75 MG (PLAVIX) TABLET PO SCH (08:48)
[2018-09-21] MEDS: LOSARTAN 25 MG (COZAAR) TAB PO SCH ×2 (08:48→09:00)
[2018-09-21] MEDS: SENNA W/DOCUSATE (SENOKOT S) TABLET PO SCH ×2 (08:48→20:31)
[2018-09-21] MEDS: ATORVASTATIN 40 MG (LIPITOR) TABLET PO SCH (08:48)
[2018-09-21] MEDS: ASPIRIN E.C. 81 MG (ECOTRIN) TAB PO SCH (08:48)
[2018-09-21] MEDS: SERTRALINE 50 MG (ZOLOFT) TABLET PO SCH (08:48)
[2018-09-21] MEDS: FUROSEMIDE 40 MG (LASIX) TAB PO SCH (08:50)
[2018-09-21] MEDS: ARTIFICAL TEARS 0.4 ML UNIT DOSE (REFRESH PLUS) OD PRN ×2 (08:50→16:58)
[2018-09-21 08:53] VITALS: BP 96/62
[2018-09-21] MEDS: RT-ALBUTEROL SULF 2.5 MG/3 ML PRE-MIX VIAL INH SCH ×3 (09:00→20:37)
--- NOTE | 2018-09-21 09:01 | Physical Therapy Daily Note ---
PT Daily Note-Current Subjective Patient in bed pre tx, agrees to PT, has no complaints of pain at rest. Appearance Patient in recliner post tx with nurse call, phone, tray, all needs met, chair alarm on. Mental Status Patient Orientation: Person, Confused, Place, Situation Transfers Therapy Code Descriptions/Definitions Functional [place] Measure: 0=Not Assessed/NA 4=Minimal Assistance 1=Total Assistance 5=Supervision or Setup 2=Maximal Assistance 6=Modified [place] 3=Moderate Assistance 7=Complete [place] Therapy Quality Codes: 6 Independent with activity with or without an assistive device 5 Patient requires set up or clean up by helper. Patient completes activity by themselves 4 Supervision or touching assist (CGA). [place] provide cues , steadying assist 3 The helper provides less than half the effort to complete the activity 2 The helper provides more than half the effort to complete the activity 1 Dependent. The helper does all the effort to complete an activity 7 Patient refused to complete or attempt activity 9 The patient did not perform the activity before the current illness or injury 88 Not attempted due to Medical conditions or safety concerns Transfers (B, C, W/C) (FIM): 5 Scootin Rollin Supine to/from Sit: 6 Sit to/from Stand: 5 Bed to/from Chair: 5 cues for hand placement when sit <-> stand Weight Bearing Right Lower Extremity: Right Full Weight Bearing Left Lower Extremity: Left Full Weight Bearing Gait Training Gait (FIM): 5 Distance: 150', 100' Gait Level of Assist: 5 Gait Persons Needed: 1 Gait Assistive Device: FWW slow ambulation, cues for direction Exercises LAQ alternating for 5 min NuStep Minutes: 15 NuStep Workload: 5 Treatments ambulation, bed mobility and transfers, LE exercise, patient was also toileted for a BM with SBA for pants and wiping Assessment Current Status: Fair Progress improving general mobility PT Short Term Goals Short Term Goals Transfers (B,C,W/C) (FIM): 5 (met) PT Director Cloud Transformation Goals Director Cloud Transformation Goals PT Director Cloud Transformation Goals Time Frame: Oct 09, 2018 Transfers (B,C,W/C) (FIM): 5 Sit to Lying (QC): 5 Lying-Sitting on Side/Bed(QC): 5 Sit to Stand (QC): 5 Rollin Roll Left to Right (QC): 5 Chair/Eux-zh-Eqntx Xfer(QC): 5 Car Transfer (QC): 5 Does the Patient Walk: Yes Gait (FIM): 5 Gait distance (FIM): 3=150 ft Distance: 175' Walk 10 feet (QC): 5 Walk 10ft-Uneven Surface(QC): 5 Walk 50ft with 2 Turns (QC): 5 Walk 150 ft (QC): 5 Gait Level of Assist: 5 Gait Assistive Device: FWW Does the Pt use WC or Scooter?: No Stairs (FIM): 1 # of Steps: 1 1 Step (curb) (QC): 4 4 Steps (QC): 9 12 Steps (QC): 9 Stairs Level Of Assist: 4 Picking up an Object (QC): 4 PT Plan Problem List Problem List: Activity Tolerance, Functional Strength, Safety, Balance, Gait, Transfer, Bed Mobility, ROM Treatment/Plan Treatment Plan: Continue Plan of Care Treatment Plan: Bed Mobility, Concurrent Therapy, Education, Functional Activity Anjali, Functional Strength, Group Therapy, Gait, Safety, Therapeutic Exercise, Transfers Treatment Duration: Oct 09, 2018 Frequency: At least 5 of 7 days/Wk (IRF) Estimated Hrs Per Day: 1.5 hours per day Patient and/or Family Agrees t: Yes Safety Risks/Education Patient Education: Gait Training, Transfer Techniques, Correct Positioning, Safety Issues Teaching Recipient: Patient Teaching Methods: Demonstration, Discussion Response to Teaching: Reinforcement Needed Time/GCodes Time In: 0800 Time Out: 0900 Total Billed Treatment Time: 60 Total Billed Treatment 1 visit GT 15'' EX 20' FA 25' ALMA BERGERON PT Sep 21, 2018 09:01
--- NOTE | 2018-09-21 09:09 | PM&R Progress Note ---
Subjective HPI/CC On Admission Date Seen by Provider: Sep 21, 2018 Time Seen by Provider: 09:00 Chief complaint: Autonomic dysfunction causing multiple and frequent falls History of present illness: This is a 72-year-old white female clinic patient of mine for the past year who has a past medical history of labile and brittle diabetes with history of DKA, hypothyroidism, TIA/CVA, CAD, severe PVD and autonomic dysfunction due to diabetes who presents to the inpatient rehab facility due to multiple ER visits due to multiple and frequent falls. She uses her walker and has been working with outpatient physical therapy at [facility] but has continued to have multiple falls most recently injuring and lacerating her left ear requiring sutures. Blood sugars have been somewhat controlled usual hemoglobin A1c is 8 but she does have labile blood pressure and blood sugar both causing difficulties with function at home. Her prior level of functioning is walking with a walker and needs help performing her ADLs by her and daughter. She does see Dr. Jacinto neurology who is been trying to work with her neuropathy placing her at more risk for falls. She is in need of fall prevention to decrease risk for further injury and strengthening and stamina building for ambulation and improve independent ADLs. Subjective/Events-last exam Bowels are moving and she declines meds Right eye is a bit irritated so will manage that conservatively Aricept seems to be really and will DC on that Overall doing very well, denies any pain. Cough is resolved. Nebs ordered Conferred with RN. Reviewed therapy notes. Labile sugar typical for the patient, sugar this am 80 and no symptoms Endo requests sugar around 200 due to how brittle she is Review of Systems General: Fatigue HEENT: Eye Pain Objective Exam Vital Signs Vital Signs Date Time Temp Pulse Resp B/P (MAP) Pulse Ox O2 Delivery O2 Flow Rate FiO2 09/21/18 08:53 98 96/62 (73) 09/21/18 06:03 97.5 18 91 Room Air Capillary Refill : General Appearance: No Apparent Distress, WD/WN, Chronically ill, Other (improved since admit) HEENT: PERRL/EOMI, Normal ENT Inspection, Pharynx Normal, Moist Mucous Membranes, Other (decreased hearing ) Neck: Full Range of Motion, Normal Inspection, Non Tender, Supple Respiratory: Chest Non Tender, Lungs Clear, Normal Breath Sounds, No Accessory Muscle Use, No Respiratory Distress Cardiovascular: Regular Rate, Rhythm, No Edema, No Gallop, No JVD, No Murmur Gastrointestinal: Normal Bowel Sounds, No Organomegaly, No Pulsatile Mass, Non Tender, Soft Back: Normal Inspection, No CVA Tenderness, No Vertebral Tenderness Extremity: Normal Capillary Refill, Normal Inspection, Normal Range of Motion, Non Tender, No Calf Tenderness, No Pedal Edema Neurologic/Psychiatric: Alert, Oriented x3 (poor memory recall), Normal Mood/Affect, technician preventative medicine II-XII Norm as Tested, Abnormal Gait, Disoriented (poor recall much improved), Motor Weakness (generalized bilateral lower legs), Sensory De ficit (lower legs to feet) Skin: Normal Color, Warm/Dry Lymphatic: No Adenopathy Results/Procedures Lab Laboratory Tests 09/21/18 05:39 Patient resulted labs reviewed. FIM Transfers Therapy Code Descriptions/Definitions Functional [place] Measure: 0=Not Assessed/NA 4=Minimal Assistance 1=Total Assistance 5=Supervision or Setup 2=Maximal Assistance 6=Modified [place] 3=Moderate Assistance 7=Complete [place] Therapy Quality Codes: 6 Independent with activity with or without an assistive device 5 Patient requires set up or clean up by helper. Patient completes activity by themselves 4 Supervision or touching assist (CGA). [place] provide cues , steadying assist 3 The helper provides less than half the effort to complete the activity 2 The helper provides more than half the effort to complete the activity 1 Dependent. The helper does all the effort to complete an activity 7 Patient refused to complete or attempt activity 9 The patient did not perform the activity before the current illness or injury 88 Not attempted due to Medical conditions or safety concerns Transfers (B, C, W/C) (FIM): 5 Scootin Rollin Roll Left to Right (QC): 4 Supine to/from Sit: 6 Sit to/from Stand: 5 Sit to Lying (QC): 5 Sit to Stand (QC): 5 (skilled cues for hand placement and sequencing) Chair/Ypm-tf-Xaqkh Xfer(QC): 4 Bed to/from Chair: 5 Car Transfer (QC): 5 Gait Training Does the Patient Walk?: Yes Gait (FIM): 5 Distance (FIM): 3=150 ft Distance: 150', 100' Walk 10 feet (QC): 4 Walk 50 ft with 2 Turns(QC): 4 Walk 150 ft (QC): 4 Walking 10ft/uneven surface-QC: 4 Gait Level of Assist: 5 Gait Persons Needed: 1 Gait Assistive Device: FWW Wheelchair Training Does the Pt Use a Wheelchair?: No Stair Training Stair Training: Handrails/: 2 handrails Stairs (FIM): 2 #of Steps: 8 1 Step (curb) (QC): 3 4 Steps (QC): 9 12 Steps (QC): 9 Stairs: Pattern: Step to Level of Assist: 4 Mental Status/Objective Comprehension: 5 Expression: 5 Social Interaction: 5 Problem Solvin Memory: 4 ADL-Treatment Feedin (set up) Eating (QC): 4 Groomin Oral Hygiene (QC): 4 Bathin Bathing Location: L Arm, R Arm, L Upper Leg, R Upper Leg, Chest, Abdomen, Buttocks, Perineal Area Shower/Bathe Self (QC): 3 Upper Extremity Dressin Upper Body Dressing (QC): 4 Lower Extremity Dressin Lower Body Dressing (QC): 3 On/Off Footwear (QC): 3 Toiletin Toileting Hygiene (QC): 4 Toilet/Commode Transfer: 5 Toilet Transfer (QC): 4 Shower: 4 Assessment/Plan Assessment and Plan Assess & Plan/Chief Complaint Assessment: Autonomic dysfunction w/chronic dizziness and disequilibrium Multiple and frequent falls TIA hx CVA hx DM OOC HTN HLP Hypothyroidism NPH DOG LICENSER shunts recently assessed to be functioning well h/o DKA Depression Memory deficit confirmed vascular dementia on SLUMS score of 21/30 started on Aricept during this admit URI-improved on Nebs Insomnia maintained on Melatonin Right eye irritation Plan: Home meds Accuchecks SSI Check labs IRF protocols Updated family on dementia dx Monitor BP closely Aricept 5mg to be maintained Fall prevention Albuterol Neb tx to continue Dry eyes to be treated with refresh tears Continues to improve DC planned later this week (1) Autonomic dysfunction with type 2 diabetes mellitus (2) TIA (transient ischemic attack) (3) Anxiety (4) Depression (5) DKA (diabetic ketoacidoses) (6) NPH (normal pressure hydrocephalus) (7) Hypothyroidism (8) Hypertension (9) Falls frequently (10) CVA (cerebral vascular accident) (11) Memory deficit (12) Myocardial infarct, old (13) Presbycusis of both ears (14) Diabetes mellitus, insulin dependent (IDDM), controlled (15) DOG LICENSER (ventriculoperitoneal) shunt status VERONICA GALVEZ DO Sep 21, 2018 09:09
--- NOTE | 2018-09-21 10:11 | Occupational Ther Daily Note ---
OT Current Status-Daily Note Subjective Pt agreeable to therapy. Has no c/o pain. Mental Status/Objective Therapy Code Descriptions/Definitions Functional [place] Measure: 0=Not Assessed/NA 4=Minimal Assistance 1=Total Assistance 5=Supervision or Setup 2=Maximal Assistance 6=Modified [place] 3=Moderate Assistance 7=Complete [place] ADL-Treatment Pt requests shower this morning. Sit to stand with supervision. Gait to restroom with FWW. Transfer to toilet with SBA using grab bar for balance and safety. Pt able to complete toileting hygiene with SBA and increased time. Able to complete clothing management with SBA. Transfer to walk in shower with close supervision using grab bars, cues for safety. Doff all clothing with SBA and increased time for lower body. Seated bathing completed using hand held shower. Upper body bathing with SBA. Pt able to wash bilateral upper legs and miya area with SBA. Stood with CGA for balance while washing buttocks. Pt able to wash lower legs, but requires min assist to thoroughly wash feet. Pt states spouse usually does this for her at home. Don pullover shirt with set up. Pt able to thread left LE into Depends, but requires assist with right. Pt able to thread bilateral LE into pants. Stood with CGA for balance during pant hike. Pt has difficulty with socks. Educated pt on use of sock aid. Pt states she does have a sock aid at home, but doesn't use it very often. Pt is able to don socks with SBA and verbal cues using sock aid. Don slip on shoes with SBA. Pt stood at sink to comb hair with SBA. Declined to brush teeth at this time. Pt fatigues with activity and requires occasional rest breaks throughout session. Pt sit to supine with SBA. Resting in bed with needs met after session. Therapy Code Descriptions/Definitions Functional [place] Measure: 0=Not Assessed/NA 4=Minimal Assistance 1=Total Assistance 5=Supervision or Setup 2=Maximal Assistance 6=Modified [place] 3=Moderate Assistance 7=Complete [place] Therapy Quality Codes: 6 Independent with activity with or without an assistive device 5 Patient requires set up or clean up by helper. Patient completes activity by themselves 4 Supervision or touching assist (CGA). [place] provide cues , steadying assist 3 The helper provides less than half the effort to complete the activity 2 The helper provides more than half the effort to complete the activity 1 Dependent. The helper does all the effort to complete an activity 7 Patient refused to complete or attempt activity 9 The patient did not perform the activity before the current illness or injury 88 Not attempted due to Medical conditions or safety concerns Grooming (FIM): 5 Bathing (FIM): 4 Shower/Bathe Self (QC): 3 Upper Body (FIM): 5 Upper Body Dressing (QC): 5 Lower Body Dressing (FIM): 4 Lower Body Dressing (QC): 3 Toileting (FIM): 5 Toileting Hygiene (QC): 4 Toilet/Commode Transfer (FIM): 5 Toilet Transfer (QC): 4 Shower Transfer(FIM): 5 Education OT Patient Education: Modified ADL techniques Teaching Recipient: Patient Teaching Methods: Demonstration, Discussion Response to Teaching: Return Demonstration, Reinforcement Needed OT Short Term Goals Short Term Goals Time Frame: Sep 24, 2018 Eating(FIM): 6 Grooming(FIM): 5 Bathing(FIM): 5 Upper Body Dressing(FIM): 5 Lower Body Dressing(FIM): 5 Toileting(FIM): 5 Transfers (B,C,W/C) (FIM): 5 (met) Toilet/Commode Transfer(FIM): 5 Tub Transfer(FIM): 5 Shower Transfer(FIM): 5 1=Demonstrate adherence to instructed precautions during ADL tasks. 2=Patient will verbalize/demonstrate understanding of assistive devices/modifications for ADL. 3=Patient will improve strength/tolerance for activity to enable patient to pe rform ADL's. OT Nursing Home Goals Electrical And Instrumentation Mechanic Goals Time Frame: Oct 08, 2018 Eating (FIM): 6 Eating (QC): 6 Groomin Oral Hygiene (QC): 6 Bathing(FIM): 6 Bathing Location: L Arm, R Arm, L Upper Leg, R Upper Leg, L Lower Leg (including foot), R Lower Leg (including foot), Chest, Abdomen, Buttocks, Perineal Area Shower/Bathe Self (QC): 6 Upper Body Dressing(FIM): 6 Upper Body Dressing (QC): 6 Lower Body Dressing(FIM): 6 Lower Body Dressing (QC): 6 On/Off Footwear (QC): 6 Toileting(FIM): 6 Toileting Hygiene (QC): 6 Transfers (B,C,W/C) (FIM): 6 Toilet/Commode Transfer(FIM): 6 Toilet/Commode Transfer (QC): 6 Tub Transfer(FIM): 6 Shower Transfer(FIM): 6 Additional Goals: 1-Demonstrate ADL Tasks, 2-Verbalize Understanding, 3- ImproveStrength/Anjali 1=Demonstrate adherence to instructed precautions during ADL tasks. 2=Patient will verbalize/demonstrate understanding of assistive devices/modifications for ADL. 3=Patient will improve strength/tolerance for activity to enable patient to perform ADL's. OT Education/Plan Discharge Recommendations Plan/Recommendations: Continue POC Treatment Plan/Plan of Care Patient would benefit from OT for education, treatment and training to promote independence in ADL's, mobility, safety and/or upper extremity function for ADL's. Plan of Care: ADL Retraining, Caregiver Training, Cognitive Retraining, Concurrent Therapy, Functional Mobility, Group Exercise/Act as Ind, UE Funct Exercise/Act, UE Neuromus Re-Ed/Coord, Visual/Perceptual Retrain Treatment Duration: Oct 08, 2018 Frequency: At least 5 of 7 days/Wk (IRF) Estimated Hrs Per Day: 1.5 hours per day Rehab Potential: Fair Time/GCodes Start Time: 09:00 Stop Time: 10:15 Total Time Billed (hr/min): 75 Billed Treatment Time 1 visit, ADLx5(75minutes) DILLAN JOYCE OT Sep 21, 2018 10:11
--- NOTE | 2018-09-21 13:41 | Physical Therapy Daily Note ---
PT Daily Note-Current Subjective Patient in bed pre tx, agrees to PT, has no complaints of pain. Appearance Patient in bed post tx with nurse call, phone, tray, all needs met, bed alarm on. Mental Status Patient Orientation: Person, Confused, Place Transfers Therapy Code Descriptions/Definitions Functional [place] Measure: 0=Not Assessed/NA 4=Minimal Assistance 1=Total Assistance 5=Supervision or Setup 2=Maximal Assistance 6=Modified [place] 3=Moderate Assistance 7=Complete [place] Therapy Quality Codes: 6 Independent with activity with or without an assistive device 5 Patient requires set up or clean up by helper. Patient completes activity by themselves 4 Supervision or touching assist (CGA). [place] provide cues , steadying assist 3 The helper provides less than half the effort to complete the activity 2 The helper provides more than half the effort to complete the activity 1 Dependent. The helper does all the effort to complete an activity 7 Patient refused to complete or attempt activity 9 The patient did not perform the activity before the current illness or injury 88 Not attempted due to Medical conditions or safety concerns Transfers (B, C, W/C) (FIM): 5 Scootin Rollin Supine to/from Sit: 6 Sit to/from Stand: 6 Bed to/from Chair: 5 Weight Bearing Right Lower Extremity: Right Full Weight Bearing Left Lower Extremity: Left Full Weight Bearing Gait Training Gait (FIM): 5 Distance: 175'x2 Gait Level of Assist: 5 Gait Persons Needed: 1 Gait Assistive Device: FWW slow ambulation, occasional moments of unsteadiness but no LOB, number of unsteady moments is decreasing Treatments ambulation Assessment Current Status: Fair Progress improving endurance and ambulation PT Short Term Goals Short Term Goals Transfers (B,C,W/C) (FIM): 5 (met) PT Site Safety Representative Goals Mcfp Goals PT Mcfp Goals Time Frame: Oct 09, 2018 Transfers (B,C,W/C) (FIM): 5 Sit to Lying (QC): 5 Lying-Sitting on Side/Bed(QC): 5 Sit to Stand (QC): 5 Rollin Roll Left to Right (QC): 5 Chair/Gqw-xu-[place]o Xfer(QC): 5 Car Transfer (QC): 5 Does the Patient Walk: Yes Gait (FIM): 5 Gait distance (FIM): 3=150 ft Distance: 175' Walk 10 feet (QC): 5 Walk 10ft-Uneven Surface(QC): 5 Walk 50ft with 2 Turns (QC): 5 Walk 150 ft (QC): 5 Gait Level of Assist: 5 Gait Assistive Device: FWW Does the Pt use WC or Scooter?: No Stairs (FIM): 1 # of Steps: 1 1 Step (curb) (QC): 4 4 Steps (QC): 9 12 Steps (QC): 9 Stairs Level Of Assist: 4 Picking up an Object (QC): 4 PT Plan Problem List Problem List: Activity Tolerance, Functional Strength, Safety, Balance, Gait, Transfer, Bed Mobility Treatment/Plan Treatment Plan: Continue Plan of Care Treatment Plan: Bed Mobility, Concurrent Therapy, Education, Functional Activity Anjali, Functional Strength, Group Therapy, Gait, Safety, Therapeutic Exercise, Transfers Treatment Duration: Oct 09, 2018 Frequency: At least 5 of 7 days/Wk (IRF) Estimated Hrs Per Day: 1.5 hours per day Patient and/or Family Agrees t: Yes Safety Risks/Education Patient Education: Gait Training, Transfer Techniques, Correct Positioning, Safety Issues Teaching Recipient: Patient Teaching Methods: Demonstration, Discussion Response to Teaching: Reinforcement Needed Time/GCodes Time In: 1330 Time Out: 1345 Total Billed Treatment Time: 15 Total Billed Treatment 1 visit GT 15' ALMA BERGERON PT Sep 21, 2018 13:41
--- NOTE | 2018-09-21 15:40 | Speech Therapy Daily Note ---
Speech Daily Progress Note Subjective Date Seen by Provider: Sep 21, 2018 Time Seen by Provider: 00:30 The patient was napping in her bed when I entered her room for therapy. Objective Patient completed memory tasks related to her return home with 70% accuracy given mod to max verbal cues. Assessment Assessment Current Status: Fair Progress Treatment Plan Continue Plan of Care Communication Comprehension: 6 Expression: 6 Social Cognition Social Interaction: 6 Problem Solvin Memory: 5 Speech Short Term Goals Short Term Goals Short Term Goals 1) The patient will complete memory exercises related to her daily needs with 90% accuracy given minimal verbal cues. 2) The patient will complete problem solving exercises related to her daily needs with 90% accuracy given minimal verbal cues. 3) The patient will complete simple 1-3 step directions related to her daily needs with 90% accuracy given minimal verbal cues. Speech Buttonholer Goals Fdc Goals The patient will complete cognitive function exercises in order to return home safely. Speech-Plan Patient/Family Goals Patient/Family Goals: The patient plans on returning home with her post rehab. Treatment Plan Speech Therapy Treatment Plan: Continue Plan of Care The patient continues to have memory deficits. Treatment Duration: Sep 24, 2018 Frequency: 5 times per week Estimated Hrs Per Day: .5 hour per day Rehab Potential: Fair Barriers to Learning: Cognitive deficits Pt/Family Agrees to Plan: Yes Safety Risks/Education Teaching Recipient: Patient Teaching Methods: Discussion Response to Teaching: Verbalize Understanding Education Topics Provided: Safety upon her return home. Time Speech Therapy Time In: 11:30 Speech Therapy Time Out: 12:00 Total Billed Time: 30 Billed Treatment Time 1LÓPEZ B[address] ST Sep 21, 2018 15:39
[2018-09-21 16:11] VITALS: BP 144/75
[2018-09-21] MEDS: MELATONIN 3 MG TABLET PO PRN (20:30)
[2018-09-21] MEDS: GABAPENTIN 100 MG (NEURONTIN) CAP PO SCH (20:30)
[2018-09-21] MEDS: DONEPEZIL 5 MG (ARICEPT) TAB PO SCH (20:30)
[2018-09-22 05:50] VITALS: BP 124/50
[2018-09-22] MEDS: inSUlin ASPART (NovoLOG) 1 UNIT/0.01 ML (CHARGE PER UNIT) SC SCH ×4 (06:11→21:50)
[2018-09-22] MEDS: LEVOTHYROXINE 112 MCG (LEVOTHROID) TAB PO SCH (06:13)
[2018-09-22] MEDS: MULTIVIT W/MINERALS TAB (THERAGRAN M) PO SCH (06:13)
--- NOTE | 2018-09-22 09:03 | Physical Therapy Daily Note ---
PT Daily Note-Current Subjective Pt asleep Supine in bed upon arrival. Pt agrees to PT. Pain Location: No Pain Reported Mental Status Patient Orientation: Person, Place Transfers Therapy Code Descriptions/Definitions Functional [place] Measure: 0=Not Assessed/NA 4=Minimal Assistance 1=Total Assistance 5=Supervision or Setup 2=Maximal Assistance 6=Modified [place] 3=Moderate Assistance 7=Complete [place] Therapy Quality Codes: 6 Independent with activity with or without an assistive device 5 Patient requires set up or clean up by helper. Patient completes activity by themselves 4 Supervision or touching assist (CGA). [place] provide cues , steadying assist 3 The helper provides less than half the effort to complete the activity 2 The helper provides more than half the effort to complete the activity 1 Dependent. The helper does all the effort to complete an activity 7 Patient refused to complete or attempt activity 9 The patient did not perform the activity before the current illness or injury 88 Not attempted due to Medical conditions or safety concerns Scootin Rollin Roll Left to Right (QC): 6 Supine to/from Sit: 6 Sit to/from Stand: 5 Sit to Lying (QC): 6 Sit to Stand (QC): 5 Weight Bearing Right Lower Extremity: Right Full Weight Bearing Left Lower Extremity: Left Full Weight Bearing Gait Training Does the Patient Walk?: Yes Gait (FIM): 5 Distance (FIM): 3=150 ft Distance: 150', 100' Walk 10 feet (QC): 5 Walk 50 ft with 2 Turns(QC): 5 Walk 150 ft (QC): 5 Gait Level of Assist: 5 Gait Persons Needed: 1 Gait Assistive Device: FWW [employer] gives VC to stay closer to FWW for safety and improved posture with ambulation. Exercises NuStep Minutes: 15 NuStep Workload: 5 Treatments Pt transfers from bed to standing to use restroom at beginning of tx. Pt returns to EOB to rest. Pt then stands and ambulates in hallway using FWW. Pt uses NuStep for 15m at WL 5 and takes short RB. Pt Pt ambulates in hallway again before returning to room. Pt prefers to rest in bed and await ST. Pt has all needs met, call light in hand. Assessment Current Status: Good Progress Pt is [place] and confused at times, needing repeated VC to complete tasks. PT Short Term Goals Short Term Goals Transfers (B,C,W/C) (FIM): 5 (met) PT Fpc Goals Gas Producer Goals PT Fpc Goals Time Frame: Oct 09, 2018 Transfers (B,C,W/C) (FIM): 5 Sit to Lying (QC): 5 Lying-Sitting on Side/Bed(QC): 5 Sit to Stand (QC): 5 Rollin Roll Left to Right (QC): 5 Chair/Dsq-xb-Xdtju Xfer(QC): 5 Car Transfer (QC): 5 Does the Patient Walk: Yes Gait (FIM): 5 Gait distance (FIM): 3=150 ft Distance: 175' Walk 10 feet (QC): 5 Walk 10ft-Uneven Surface(QC): 5 Walk 50ft with 2 Turns (QC): 5 Walk 150 ft (QC): 5 Gait Level of Assist: 5 Gait Assistive Device: FWW Does the Pt use WC or Scooter?: No Stairs (FIM): 1 # of Steps: 1 1 Step (curb) (QC): 4 4 Steps (QC): 9 12 Steps (QC): 9 Stairs Level Of Assist: 4 Picking up an Object (QC): 4 PT Plan Problem List Problem List: Activity Tolerance, Functional Strength, Gait Treatment/Plan Treatment Plan: Continue Plan of Care Treatment Plan: Bed Mobility, Concurrent Therapy, Education, Functional Activity Anjali, Functional Strength, Group Therapy, Gait, Safety, Therapeutic Exercise, Transfers Treatment Duration: Oct 09, 2018 Frequency: At least 5 of 7 days/Wk (IRF) Estimated Hrs Per Day: 1.5 hours per day Patient and/or Family Agrees t: Yes Safety Risks/Education Patient Education: Gait Training, Correct Positioning, Safety Issues Teaching Recipient: Patient Teaching Methods: Discussion Response to Teaching: Verbalize Understanding Time/GCodes Time In: 800 Time Out: 900 Total Billed Treatment Time: 60 Total Billed Treatment 1, FA (15m), GT x2 (25m) & EX (20m) G Codes Necessary: TAMEKA Bates PTA Sep 22, 2018 09:03
--- NOTE | 2018-09-22 09:04 | PM&R Progress Note ---
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 She uses her walker and has been working with outpatient physical therapy at [facility] but has continued to have multiple falls most recently injuring and lacerating her left ear requiring sutures. Blood sugars have been somewhat controlled usual hemoglobin A1c is 8 but she does have labile blood pressure and blood sugar both causing difficulties with function at home. Her prior level of functioning is walking with a walker and needs help performing her ADLs by her and daughter. She does see Dr. Jacinto neurology who is been trying to work with her neuropathy placing her at more risk for falls. She is in need of fall prevention to decrease risk for further injury and strengthening and stamina building for ambulation and improve independent ADLs. Subjective/Events-last exam Less confusion last night. Word search issues are being worked on by speech therapy. Labile sugar which will be helped when is discharged from upstairs and stays with her for sliding scale insulin regimen that they give her at home since she is brittle and Dr. Suarez allows permissive hyperglycemia of 200 due to the severity of her hypoglycemia. She does dribble urine with mild urinary incontinence and that will be supported. Conferred with RN. Reviewed therapy notes. Discharge planned for Thursday. Review of Systems General: Fatigue Neurological: Weakness, Incoordination, Confusion Objective Exam Vital Signs Vital Signs Date Time Temp Pulse Resp B/P (MAP) Pulse Ox O2 Delivery O2 Flow Rate FiO2 09/22/18 17:19 97.4 89 16 96/59 (71) 95 Room Air Capillary Refill : General Appearance: No Apparent Distress, WD/WN, Chronically ill, Other (improved since admit) HEENT: PERRL/EOMI, Normal ENT Inspection, Pharynx Normal, Moist Mucous Membranes, Other (decreased hearing ) Neck: Full Range of Motion, Normal Inspection, Non Tender, Supple Respiratory: Chest Non Tender, Lungs Clear, Normal Breath Sounds, No Accessory Muscle Use, No Respiratory Distress Cardiovascular: Regular Rate, Rhythm, No Edema, No Gallop, No JVD, No Murmur Gastrointestinal: Normal Bowel Sounds, No Organomegaly, No Pulsatile Mass, Non Tender, Soft Back: Normal Inspection, No CVA Tenderness, No Vertebral Tenderness Extremity: Normal Capillary Refill, Normal Inspection, Normal Range of Motion, Non Tender, No Calf Tenderness, No Pedal Edema Neurologic/Psychiatric: Alert, Oriented x3 (poor memory recall), Normal Mood/Affect, appraiser land II-XII Norm as Tested, Abnormal Gait, Disoriented (poor recall much improved), Motor Weakness (generalized bilateral lower legs), Sensory Deficit (lower legs to feet) Skin: Normal Color, Warm/Dry Lymphatic: No Adenopathy Results/Procedures Lab Patient resulted labs reviewed. FIM Transfers Therapy Code Descriptions/Definitions Functional [place] Measure: 0=Not Assessed/NA 4=Minimal Assistance 1=Total Assistance 5=Supervision or Setup 2=Maximal Assistance 6=Modified [place] 3=Moderate Assistance 7=Complete [place] Therapy Quality Codes: 6 Independent with activity with or without an assistive device 5 Patient requires set up or clean up by helper. Patient completes activity by themselves 4 Supervision or touching assist (CGA). [place] provide cues , steadying assist 3 The helper provides less than half the effort to complete the activity 2 The helper provides more than half the effort to complete the activity 1 Dependent. The helper does all the effort to complete an activity 7 Patient refused to complete or attempt activity 9 The patient did not perform the activity before the current illness or injury 88 Not attempted due to Medical conditions or safety concerns Transfers (B, C, W/C) (FIM): 5 Scootin Rollin Roll Left to Right (QC): 6 Supine to/from Sit: 6 Sit to/from Stand: 5 Sit to Lying (QC): 5 Sit to Stand (QC): 5 (skilled cues for hand placement and sequencing) Chair/Byt-de-Uhafc Xfer(QC): 4 Bed to/from Chair: 5 Car Transfer (QC): 5 Gait Training Does the Patient Walk?: Yes Gait (FIM): 5 Distance (FIM): 3=150 ft Distance: 175'x2 Walk 10 feet (QC): 4 Walk 50 ft with 2 Turns(QC): 4 Walk 150 ft (QC): 4 Walking 10ft/uneven surface-QC: 4 Gait Level of Assist: 5 Gait Persons Needed: 1 Gait Assistive Device: FWW Wheelchair Training Does the Pt Use a Wheelchair?: No Stair Training Stair Training: Handrails/: 2 handrails Stairs (FIM): 2 #of Steps: 8 1 Step (curb) (QC): 3 4 Steps (QC): 9 12 Steps (QC): 9 Stairs: Pattern: Step to Level of Assist: 4 Mental Status/Objective Comprehension: 6 Expression: 6 Social Interaction: 6 Problem Solvin Memory: 5 ADL-Treatment Feedin (set up) Eating (QC): 4 Groomin Oral Hygiene (QC): 4 Bathin Bathing Location: L Arm, R Arm, L Upper Leg, R Upper Leg, Chest, Abdomen, Buttocks, Perineal Area Shower/Bathe Self (QC): 3 Upper Extremity Dressin Upper Body Dressing (QC): 5 Lower Extremity Dressin Lower Body Dressing (QC): 3 On/Off Footwear (QC): 3 Toiletin Toileting Hygiene (QC): 4 Toilet/Commode Transfer: 5 Toilet Transfer (QC): 4 Shower: 5 Assessment/Plan Assessment and Plan Assess & Plan/Chief Complaint Assessment: Autonomic dysfunction w/chronic dizziness and disequilibrium Multiple and frequent falls TIA hx CVA hx DM OOC HTN HLP Hypothyroidism NPH STERILE PRODUCTS PROCESSOR shunts recently assessed to be functioning well h/o DKA Depression Memory deficit confirmed vascular dementia on SLUMS score of started on Aricept during this admit URI-improved on Nebs Insomnia maintained on Melatonin Right eye irritation Plan: Home meds Accuchecks SSI Check labs IRF protocols Updated family on dementia dx Monitor BP closely Aricept 5mg to be maintained Fall prevention Albuterol Neb tx to continue Dry eyes to be treated with refresh tears Continues to improve DC planned Thursday (1) Autonomic dysfunction with type 2 diabetes mellitus (2) TIA (transient ischemic attack) (3) Anxiety (4) Depression (5) DKA (diabetic ketoacidoses) (6) NPH (normal pressure hydrocephalus) (7) Hypothyroidism (8) Hypertension (9) Falls frequently (10) CVA (cerebral vascular accident) (11) Memory deficit (12) Myocardial infarct, old (13) Presbycusis of both ears (14) Diabetes mellitus, insulin dependent (IDDM), controlled (15) STERILE PRODUCTS PROCESSOR (ventriculoperitoneal) shunt status VERONICA GALVEZ DO Sep 22, 2018 09:04
[2018-09-22] MEDS: RT-ALBUTEROL SULF 2.5 MG/3 ML PRE-MIX VIAL INH SCH ×3 (09:50→20:28)
[2018-09-22] MEDS: LOSARTAN 25 MG (COZAAR) TAB PO SCH (10:08)
[2018-09-22] MEDS: SERTRALINE 50 MG (ZOLOFT) TABLET PO SCH (10:08)
[2018-09-22] MEDS: CLOPIDOGREL 75 MG (PLAVIX) TABLET PO SCH (10:08)
[2018-09-22] MEDS: ATORVASTATIN 40 MG (LIPITOR) TABLET PO SCH (10:09)
[2018-09-22] MEDS: ASPIRIN E.C. 81 MG (ECOTRIN) TAB PO SCH (10:09)
[2018-09-22] MEDS: FUROSEMIDE 40 MG (LASIX) TAB PO SCH (10:09)
--- NOTE | 2018-09-22 10:36 | Speech Therapy Daily Note ---
Speech Daily Progress Note Subjective Date Seen by Provider: Sep 22, 2018 Time Seen by Provider: 00:30 The patient was resting in her bed after just finishing her PT. Objective The patient completed a series of memory exercises at 75% with mod to max verbal cuing. Assessment Assessment Current Status: Fair Progress Treatment Plan Continue Plan of Care Communication Comprehension: 6 Expression: 6 Social Cognition Social Interaction: 6 Problem Solvin Memory: 5 Speech Short Term Goals Short Term Goals Short Term Goals 1) The patient will complete memory exercises related to her daily needs with 90% accuracy given minimal verbal cues. 2) The patient will complete problem solving exercises related to her daily needs with 90% accuracy given minimal verbal cues. 3) The patient will complete simple 1-3 step directions related to her daily needs with 90% accuracy given minimal verbal cues. Speech Corporate Relations Director Goals Corporate Relations Director Goals The patient will complete cognitive function exercises in order to return home safely. Speech-Plan Patient/Family Goals Patient/Family Goals: The patient plans on returning home with her . Both have been in the hospital for several days. It is unclear at this time if they will be able to return home upon discharge. Treatment Plan Speech Therapy Treatment Plan: Continue Plan of Care The patient frequently asks about her returning home. Treatment Duration: Sep 24, 2018 Frequency: 5 times per week Estimated Hrs Per Day: .5 hour per day Rehab Potential: Fair Barriers to Learning: Patient has significant memory deficit Pt/Family Agrees to Plan: Yes Safety Risks/Education Teaching Recipient: Patient Teaching Methods: Discussion Response to Teaching: Verbalize Understanding Education Topics Provided: The patient's safety while on the ARU Time Speech Therapy Time In: 09:00 Speech Therapy Time Out: 09:30 Total Billed Time: 30 Billed Treatment Time 1L[address]PE[address] ST Sep 22, 2018 10:36
--- NOTE | 2018-09-22 11:07 | Occupational Ther Daily Note ---
OT Current Status-Daily Note Subjective Pt in bed, agrees to treatment. Pt has no c/o pain. States she hopes to go home soon. Mental Status/Objective Therapy Code Descriptions/Definitions Functional [place] Measure: 0=Not Assessed/NA 4=Minimal Assistance 1=Total Assistance 5=Supervision or Setup 2=Maximal Assistance 6=Modified [place] 3=Moderate Assistance 7=Complete [place] ADL-Treatment Pt declined shower today. Supine to sit with modified independence. Sit to stand with supervision. Gait to restroom with FWW. Transfer to toilet with SBA. Pt toileted x2 during session. Able to complete toileting hygiene and clothing management with SBA. Changed Depends with minimal assistance to thread left LE. Donned pants with minimal assistance. Stood with supervision for balance during pant hike. Grooming tasks completed standing at sink. Pt washed hands, brushed teeth, and combed hair with SBA. Seated rest break taken after grooming. Therapy Code Descriptions/Definitions Functional [place] Measure: 0=Not Assessed/NA 4=Minimal Assistance 1=Total Assistance 5=Supervision or Setup 2=Maximal Assistance 6=Modified [place] 3=Moderate Assistance 7=Complete [place] Therapy Quality Codes: 6 Independent with activity with or without an assistive device 5 Patient requires set up or clean up by helper. Patient completes activity by themselves 4 Supervision or touching assist (CGA). [place] provide cues , steadying assist 3 The helper provides less than half the effort to complete the activity 2 The helper provides more than half the effort to complete the activity 1 Dependent. The helper does all the effort to complete an activity 7 Patient refused to complete or attempt activity 9 The patient did not perform the activity before the current illness or injury 88 Not attempted due to Medical conditions or safety concerns Grooming (FIM): 5 Oral Hygiene (QC): 4 Lower Body Dressing (FIM): 4 Lower Body Dressing (QC): 3 Toileting (FIM): 5 Toileting Hygiene (QC): 4 Toilet/Commode Transfer (FIM): 5 Toilet Transfer (QC): 4 Other Treatment Gait to therapy gym with FWW. Arm bike [id number] to increase overall strength and activity tolerance needed for functional tasks. Pt completed task with minimal resistance and slow pace. No rest breaks taken during task. Pt completed resistance peg activity with bilateral UE with 1# weights in place to increase strength and coordination/manipulation skills for ADL tasks. Fine motor task with nuts and bolts with bilateral UE with 1# weights to increase strength and coordination. Pt completed task with increased time. OT Short Term Goals Short Term Goals Time Frame: Sep 24, 2018 Eating(FIM): 6 Grooming(FIM): 5 Bathing(FIM): 5 Upper Body Dressing(FIM): 5 Lower Body Dressing(FIM): 5 Toileting(FIM): 5 Transfers (B,C,W/C) (FIM): 5 (met) Toilet/Commode Transfer(FIM): 5 Tub Transfer(FIM): 5 Shower Transfer(FIM): 5 1=Demonstrate adherence to instructed precautions during ADL tasks. 2=Patient will verbalize/demonstrate understanding of assistive devices/modifications for ADL. 3=Patient will improve strength/tolerance for activity to enable patient to perform ADL's. OT Detention Goals Detention Goals Time Frame: Oct 08, 2018 Eating (FIM): 6 Eating (QC): 6 Groomin Oral Hygiene (QC): 6 Bathing(FIM): 6 Bathing Location: L Arm, R Arm, L Upper Leg, R Upper Leg, L Lower Leg (including foot), R Lower Leg (including foot), Chest, Abdomen, Buttocks, Perineal Area Shower/Bathe Self (QC): 6 Upper Body Dressing(FIM): 6 Upper Body Dressing (QC): 6 Lower Body Dressing(FIM): 6 Lower Body Dressing (QC): 6 On/Off Footwear (QC): 6 Toileting(FIM): 6 Toileting Hygiene (QC): 6 Transfers (B,C,W/C) (FIM): 6 Toilet/Commode Transfer(FIM): 6 Toilet/Commode Transfer (QC): 6 Tub Transfer(FIM): 6 Shower Transfer(FIM): 6 Additional Goals: 1-Demonstrate ADL Tasks, 2-Verbalize Understanding, 3-ImproveStrength/Anjali 1=Demonstrate adherence to instructed precautions during ADL tasks. 2=Patient will verbalize/demonstrate understanding of assistive devices/modifications for ADL. 3=Patient will improve strength/tolerance for activity to enable patient to perform ADL's. OT Education/Plan Discharge Recommendations Plan/Recommendations: Continue POC Treatment Plan/Plan of Care Patient would benefit from OT for education, treatment and training to promote independence in ADL's, mobility, safety and/or upper extremity function for ADL's. Plan of Care: ADL Retraining, Caregiver Training, Cognitive Retraining, Concurrent Therapy, Functional Mobility, Group Exercise/Act as Ind, UE Funct Exercise/Act, UE Neuromus Re-Ed/Coord, Visual/Perceptual Retrain Treatment Duration: Oct 08, 2018 Frequency: At least 5 of 7 days/Wk (IRF) Estimated Hrs Per Day: 1.5 hours per day Rehab Potential: Fair Time/GCodes Start Time: 09:30 Stop Time: 10:45 Total Time Billed (hr/min): 75 Billed Treatment Time 1 visit, ADLx3(40minutes), EXx2(35minutes) DILLAN JOYCE OT Sep 22, 2018 11:07
[2018-09-22] MEDS: SENNA W/DOCUSATE (SENOKOT S) TABLET PO SCH ×2 (11:27→21:50)
--- NOTE | 2018-09-22 13:34 | Physical Therapy Daily Note ---
PT Daily Note-Current Subjective Pt sitting in recliner upon arrival. Pt agrees to PT but asks to use restroom. Pain Location: No Pain Reported Mental Status Patient Orientation: Person, Place Transfers Therapy Code Descriptions/Definitions Functional [place] Measure: 0=Not Assessed/NA 4=Minimal Assistance 1=Total Assistance 5=Supervision or Setup 2=Maximal Assistance 6=Modified [place] 3=Moderate Assistance 7=Complete [place] Therapy Quality Codes: 6 Independent with activity with or without an assistive device 5 Patient requires set up or clean up by helper. Patient completes activity by themselves 4 Supervision or touching assist (CGA). [place] provide cues , steadying assist 3 The helper provides less than half the effort to complete the activity 2 The helper provides more than half the effort to complete the activity 1 Dependent. The helper does all the effort to complete an activity 7 Patient refused to complete or attempt activity 9 The patient did not perform the activity before the current illness or injury 88 Not attempted due to Medical conditions or safety concerns Scootin Supine to/from Sit: 6 Sit to/from Stand: 5 Sit to Lying (QC): 6 Sit to Stand (QC): 5 Weight Bearing Right Lower Extremity: Right Full Weight Bearing Left Lower Extremity: Left Full Weight Bearing Exercises Seated Therapy Exercises: Ankle pumps, Long arc quads, Hip flexion, Kicking activity, Glut set Seated Reps: 20 Treatments Pt transfers from recliner to standing at SBA. Pt uses restroom then returns to recliner to rest. Pt completes Seated Ex in recliner with RB as needed. Pt returns to Supine in bed after Ex to rest. Pt has all needs met, call light in hand. Assessment Current Status: Fair Progress Pt needs VC during Ex to refocus. Pt is confused at times and needs redirection. PT Short Term Goals Short Term Goals Transfers (B,C,W/C) (FIM): 5 (met) PT Half-Way Goals Half-Way Goals PT Eligibility Manager Goals Time Frame: Oct 09, 2018 Transfers (B,C,W/C) (FIM): 5 Sit to Lying (QC): 5 Lying-Sitting on Side/Bed(QC): 5 Sit to Stand (QC): 5 Rollin Roll Left to Right (QC): 5 Chair/[id number] Xfer(QC): 5 Car Transfer (QC): 5 Does the Patient Walk: Yes Gait (FIM): 5 Gait distance (FIM): 3=150 ft Distance: 175' Walk 10 feet (QC): 5 Walk 10ft-Uneven Surface(QC): 5 Walk 50ft with 2 Turns (QC): 5 Walk 150 ft (QC): 5 Gait Level of Assist: 5 Gait Assistive Device: FWW Does the Pt use WC or Scooter?: No Stairs (FIM): 1 # of Steps: 1 1 Step (curb) (QC): 4 4 Steps (QC): 9 12 Steps (QC): 9 Stairs Level Of Assist: 4 Picking up an Object (QC): 4 PT Plan Problem List Problem List: Activity Tolerance, Functional Strength, Safety Treatment/Plan Treatment Plan: Continue Plan of Care Treatment Plan: Bed Mobility, Concurrent Therapy, Education, Functional Activity Anjali, Functional Strength, Group Therapy, Gait, Safety, Therapeutic Exercise, Transfers Treatment Duration: Oct 09, 2018 Frequency: At least 5 of 7 days/Wk (IRF) Estimated Hrs Per Day: 1.5 hours per day Patient and/or Family Agrees t: Yes Safety Risks/Education Patient Education: Correct Positioning, Safety Issues Teaching Recipient: Patient Teaching Methods: Discussion Response to Teaching: Verbalize Understanding, Reinforcement Needed Time/GCodes Time In: 1300 Time Out: 1330 Total Billed Treatment Time: 30 Total Billed Treatment 1, FA (15m) & EX (15m) G Codes Necessary: TAMEKA Bates COLLEGE BASKETBALL COACH Sep 22, 2018 13:34
--- NOTE | 2018-09-22 15:10 | NUR ---
ABRASIVE MIXER HELPER met with patient and spouse to review team conference summary. As patient is completing bed mobility with modified independence, grooming, toilet transfers and gait with standby assistance and lower body ADLs with minimal assist, team has recommended patient to proceed with home discharge on . Per report from patient and spouse, patient is performing activities more independently now than baseline function. Patient utilized outpatient therapies at [facility] prior to hospitalization, family wishes to continue services. Team is recommended outpatient PT and TRANSPLANT RN. Patient spouse expressed no concerns at this time. ABRASIVE MIXER HELPER will continue to follow for additional needs.
[2018-09-22 17:19] VITALS: BP 96/59
--- NOTE | 2018-09-22 19:41 | NUR ---
As this RN & shift production supervisor RN were giving report, heard coughing/gagging coming from room. When entered room, pt lying down in (flat) bed, on Rt side, coughing. RN immediately placed HOB up 90'. Pt alert, but coughing, gagging, trying to clear throat. Provided tissues. at bedside, states, "it was my fault that she choked, I gave her a piece of peanut brittle to eat. (Note that pt was flat in bed when she was eating the peanut brittle.) states that he was concerned that her Blood Sugar was on the low side (127), at 1600. Where had just asked an hour earlier if pt was going to get her Insulin shot ? Explained that she didn't qualify for SSI w her Insulin being 127. agreed w this. stated that he was concerned that her blood sugar may drop. Pt had ate supper after 1600 B/S obtained. states that pt's medical staff assistant likes to keep her blood sugar in the 200's. Instructed pt & for pt to only eat or drink when HOB is elevated; not when she is flat in bed. They verbalize understanding.
[2018-09-22] MEDS: DONEPEZIL 5 MG (ARICEPT) TAB PO SCH (21:49)
[2018-09-22] MEDS: GABAPENTIN 100 MG (NEURONTIN) CAP PO SCH (21:49)
[2018-09-22] MEDS: MELATONIN 3 MG TABLET PO PRN (21:51)
[2018-09-23 05:05] VITALS: BP 121/75
[2018-09-23] MEDS: inSUlin ASPART (NovoLOG) 1 UNIT/0.01 ML (CHARGE PER UNIT) SC SCH ×4 (05:29→20:57)
[2018-09-23] MEDS: LEVOTHYROXINE 112 MCG (LEVOTHROID) TAB PO SCH (06:34)
[2018-09-23] MEDS: MULTIVIT W/MINERALS TAB (THERAGRAN M) PO SCH (06:34)
[2018-09-23] MEDS: RT-ALBUTEROL SULF 2.5 MG/3 ML PRE-MIX VIAL INH SCH ×3 (06:52→20:59)
--- NOTE | 2018-09-23 07:57 | PM&R Progress Note ---
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 She uses her walker and has been working with outpatient physical therapy at [facility] but has continued to have multiple falls most recently injuring and lacerating her left ear requiring sutures. Blood sugars have been somewhat controlled usual hemoglobin A1c is 8 but she does have labile blood pressure and blood sugar both causing difficulties with function at home. Her prior level of functioning is walking with a walker and needs help performing her ADLs by her and daughter. She does see Dr. Jacinto neurology who is been trying to work with her neuropathy placing her at more risk for falls. She is in need of fall prevention to decrease risk for further injury and strengthening and stamina building for ambulation and improve independent ADLs. Subjective/Events-last exam Discharge is planned for Thursday. Had some peanut brittle from her last night and she had a coughing episode when she was lying down and eating it. Didn't sleep real well, her remained in the room. Reviewed meds and labs. Conferred with RN. Reviewed therapy notes. Aricept really helping cognition. Conferred with RN. Reviewed therapy notes. Review of Systems General: Fatigue Neurological: Weakness, Incoordination, Confusion Objective Exam Vital Signs Vital Signs Date Time Temp Pulse Resp B/P (MAP) Pulse Ox O2 Delivery O2 Flow Rate FiO2 09/23/18 16:01 92 Room Air 09/23/18 15:30 97.9 82 16 117/71 (86) Capillary Refill : General Appearance: No Apparent Distress, WD/WN, Chronically ill, Other (improved since admit) HEENT: PERRL/EOMI, Normal ENT Inspection, Pharynx Normal, Moist Mucous Membranes, Other (decreased hearing ) Neck: Full Range of Motion, Normal Inspection, Non Tender, Supple Respiratory: Chest Non Tender, Lungs Clear, Normal Breath Sounds, No Accessory Muscle Use, No Respiratory Distress Cardiovascular: Regular Rate, Rhythm, No Edema, No Gallop, No JVD, No Murmur Gastrointestinal: Normal Bowel Sounds, No Organomegaly, No Pulsatile Mass, Non Tender, Soft Back: Normal Inspection, No CVA Tenderness, No Vertebral Tenderness Extremity: Normal Capillary Refill, Normal Inspection, Normal Range of Motion, Non Tender, No Calf Tenderness, No Pedal Edema Neurologic/Psychiatric: Alert, Oriented x3 (poor memory recall), Normal Mood/Affect, dry plasterer helper II-XII Norm as Tested, Abnormal Gait, Disoriented (poor recall much improved), Motor Weakness (generalized bilateral lower legs), Sensory Deficit (lower legs to feet) Skin: Normal Color, Warm/Dry Lymphatic: No Adenopathy Results/Procedures Lab Patient resulted labs reviewed. FIM Transfers Therapy Code Descriptions/Definitions Functional [place] Measure: 0=Not Assessed/NA 4=Minimal Assistance 1=Total Assistance 5=Supervision or Setup 2=Maximal Assistance 6=Modified [place] 3=Moderate Assistance 7=Complete [place] Therapy Quality Codes: 6 Independent with activity with or without an assistive device 5 Patient requires set up or clean up by helper. Patient completes activity by themselves 4 Supervision or touching assist (CGA). [place] provide cues , steadying assist 3 The helper provides less than half the effort to complete the activity 2 The helper provides more than half the effort to complete the activity 1 Dependent. The helper does all the effort to complete an activity 7 Patient refused to complete or attempt activity 9 The patient did not perform the activity before the current illness or injury 88 Not attempted due to Medical conditions or safety concerns Transfers (B, C, W/C) (FIM): 5 Scootin Rollin Roll Left to Right (QC): 6 Supine to/from Sit: 6 Sit to/from Stand: 5 Sit to Lying (QC): 6 Sit to Stand (QC): 5 Chair/Ipr-mi-Gnaqp Xfer(QC): 4 Bed to/from Chair: 5 Car Transfer (QC): 5 Gait Training Does the Patient Walk?: Yes Gait (FIM): 5 Distance (FIM): 3=150 ft Distance: 150', 100' Walk 10 feet (QC): 5 Walk 50 ft with 2 Turns(QC): 5 Walk 150 ft (QC): 5 Walking 10ft/uneven surface-QC: 4 Gait Level of Assist: 5 Gait Persons Needed: 1 Gait Assistive Device: FWW Wheelchair Training Does the Pt Use a Wheelchair?: No Stair Training Stair Training: Handrails/: 2 handrails Stairs (FIM): 2 #of Steps: 8 1 Step (curb) (QC): 3 4 Steps (QC): 9 12 Steps (QC): 9 Stairs: Pattern: Step to Level of Assist: 4 Mental Status/Objective Comprehension: 6 Expression: 6 Social Interaction: 6 Problem Solvin Memory: 5 ADL-Treatment Feedin (set up) Eating (QC): 4 Groomin Oral Hygiene (QC): 4 Bathin Bathing Location: L Arm, R Arm, L Upper Leg, R Upper Leg, Chest, Abdomen, Buttocks, Perineal Area Shower/Bathe Self (QC): 3 Upper Extremity Dressin Upper Body Dressing (QC): 5 Lower Extremity Dressin Lower Body Dressing (QC): 3 On/Off Footwear (QC): 3 Toiletin Toileting Hygiene (QC): 4 Toilet/Commode Transfer: 5 Toilet Transfer (QC): 4 Shower: 5 Assessment/Plan Assessment and Plan Assess & Plan/Chief Complaint Assessment: Autonomic dysfunction w/chronic dizziness and disequilibrium Multiple and frequent falls TIA hx CVA hx DM OOC HTN HLP Hypothyroidism NPH HOUSE DECORATOR shunts recently assessed to be functioning well h/o DKA Depression Memory deficit confirmed vascular dementia on SLUMS score of started on Aricept during this admit URI-improved on Nebs Insomnia maintained on Melatonin Right eye irritation Plan: Home meds Accuchecks SSI Check labs IRF protocols Updated family on dementia dx Monitor BP closely Aricept 5mg to be maintained Fall prevention Albuterol Neb tx to continue Dry eyes to be treated with refresh tears Continues to improve DC planned tomorrow (1) Autonomic dysfunction with type 2 diabetes mellitus (2) TIA (transient ischemic attack) (3) Anxiety (4) Depression (5) DKA (diabetic ketoacidoses) (6) NPH (normal pressure hydrocephalus) (7) Hypothyroidism (8) Hypertension (9) Falls frequently (10) CVA (cerebral vascular accident) (11) Memory deficit (12) Myocardial infarct, old (13) Presbycusis of both ears (14) Diabetes mellitus, insulin dependent (IDDM), controlled (15) HOUSE DECORATOR (ventriculoperitoneal) shunt status VERONICA GALVEZ DO Sep 23, 2018 07:57
[2018-09-23] MEDS: SENNA W/DOCUSATE (SENOKOT S) TABLET PO SCH ×2 (08:22→20:53)
[2018-09-23] MEDS: SERTRALINE 50 MG (ZOLOFT) TABLET PO SCH (08:23)
[2018-09-23] MEDS: ASPIRIN E.C. 81 MG (ECOTRIN) TAB PO SCH (08:23)
[2018-09-23] MEDS: FUROSEMIDE 40 MG (LASIX) TAB PO SCH (08:23)
[2018-09-23] MEDS: LOSARTAN 25 MG (COZAAR) TAB PO SCH (08:23)
[2018-09-23] MEDS: ATORVASTATIN 40 MG (LIPITOR) TABLET PO SCH (08:23)
[2018-09-23] MEDS: CLOPIDOGREL 75 MG (PLAVIX) TABLET PO SCH (08:23)
--- NOTE | 2018-09-23 08:25 | Occupational Ther Daily Note ---
OT Current Status-Daily Note Subjective Pt alert, lying in bed. Pt agrees to therapy. No c/o pain. Mental Status/Objective Patient Orientation: Person, Place, Time, Situation Therapy Code Descriptions/Definitions Functional [place] Measure: 0=Not Assessed/NA 4=Minimal Assistance 1=Total Assistance 5=Supervision or Setup 2=Maximal Assistance 6=Modified [place] 3=Moderate Assistance 7=Complete [place] ADL-Treatment Pt agrees to shower. Supine <--> EOB by self. Pt ambulates into bathroom using FWW and verbal cues to pick feet up, CGA. Transfers to toilet using FWW and grabbars, verbal cues for hand placement. Manipulated clothing and cleansed self with CGA. Transferred into shower using FWW, shower bench and grabbars with verbal cues with CGA. Completed shower with verbal cues for encouragement to attempt to wash own feet and buttocks, able to complete with CGA for safety. After set up, pt able to don/doff upper body clothing by self. Cues to thread feet throughout pant leg, min A, then CGA in standing while pt hiked pants over hips due to LOB. Used sock aide to don socks. Pt then ambulated around [facility] to work on functional FWW skills, CGA and verbal cues for safety. After therapy, pt lying in bed with call light/phone in reach. present in room. All needs met in room. Therapy Code Descriptions/Definitions Functional [place] Measure: 0=Not Assessed/NA 4=Minimal Assistance 1=Total Assistance 5=Supervision or Setup 2=Maximal Assistance 6=Modified [place] 3=Moderate Assistance 7=Complete [place] Therapy Quality Codes: 6 Independent with activity with or without an assistive device 5 Patient requires set up or clean up by helper. Patient completes activity by themselves 4 Supervision or touching assist (CGA). [place] provide cues , steadying assist 3 The helper provides less than half the effort to complete the activity 2 The helper provides more than half the effort to complete the activity 1 Dependent. The helper does all the effort to complete an activity 7 Patient refused to complete or attempt activity 9 The patient did not perform the activity before the current illness or injury 88 Not attempted due to Medical conditions or safety concerns Eating (FIM): 6 (Pt demonstrates the ability to complete set up and use regular utensils to eat.) Eating (QC): 6 Grooming (FIM): 6 (Sitting at sink, pt able to complete by self.) Oral Hygiene (QC): 6 Bathing (FIM): 4 Bathing Location: L Arm, R Arm, L Upper Leg, R Upper Leg, L Lower Leg (including foot), R Lower Leg (including foot), Chest, Abdomen, Buttocks, Perineal Area Shower/Bathe Self (QC): 3 Upper Body (FIM): 5 Upper Body Dressing (QC): 5 Lower Body Dressing (FIM): 4 Lower Body Dressing (QC): 3 On/Off Footwear (QC): 4 (SBA) Toileting (FIM): 4 Toileting Hygiene (QC): 4 Toilet/Commode Transfer (FIM): 4 Toilet Transfer (QC): 4 Shower Transfer(FIM): 4 OT Short Term Goals Short Term Goals Time Frame: Sep 24, 2018 Eating(FIM): 6 Grooming(FIM): 5 Bathing(FIM): 5 Upper Body Dressing(FIM): 5 Lower Body Dressing(FIM): 5 Toileting(FIM): 5 Transfers (B,C,W/C) (FIM): 5 (met) Toilet/Commode Transfer(FIM): 5 Tub Transfer(FIM): 5 Shower Transfer(FIM): 5 1=Demonstrate adherence to instructed precautions during ADL tasks. 2=Patient will verbalize/demonstrate understanding of assistive devices/modifications for ADL. 3=Patient will improve strength/tolerance for activity to enable patient to perform ADL's. OT Conformal Pad Former Goals Conformal Pad Former Goals Time Frame: Oct 08, 2018 Eating (FIM): 6 (met-09/23/18) Eating (QC): 6 (met-09/23/18) Groomin (met-09/23/18) Oral Hygiene (QC): 6 (met-09/23/18) Bathing(FIM): 6 (not met) Bathing Location: L Arm, R Arm, L Upper Leg, R Upper Leg, L Lower Leg (including foot), R Lower Leg (including foot), Chest, Abdomen, Buttocks, Perineal Area Shower/Bathe Self (QC): 6 (not met) Upper Body Dressing(FIM): 6 (not met) Upper Body Dressing (QC): 6 (not met) Lower Body Dressing(FIM): 6 (not met) Lower Body Dressing (QC): 6 (not met) On/Off Footwear (QC): 6 (not met) Toileting(FIM): 6 (not met) Toileting Hygiene (QC): 6 (not met) Transfers (B,C,W/C) (FIM): 6 (not met) Toilet/Commode Transfer(FIM): 6 (not met) Toilet/Commode Transfer (QC): 6 (not met) Tub Transfer(FIM): 6 (not met) Shower Transfer(FIM): 6 (not met) Additional Goals: 1-Demonstrate ADL Tasks, 2-Verbalize Understanding, 3- ImproveStrength/Anjali 1=Demonstrate adherence to instructed precautions during ADL tasks. 2=Patient will verbalize/demonstrate understanding of assistive devices/modifications for ADL. 3=Patient will improve strength/tolerance for activity to enable patient to perform ADL's. OT Education/Plan Problem List/Assessment Assessment: Decreased Activ Tolerance, Decreased Safety Aware, Decreased UE Strength, Impaired Cognition, Impaired Coordination, Impaired Funct Balance, Impaired Self-Care Skills Discharge Recommendations Plan/Recommendations: Continue POC Treatment Plan/Plan of Care Patient would benefit from OT for education, treatment and training to promote independence in ADL's, mobility, safety and/or upper extremity function for ADL's. Plan of Care: ADL Retraining, Caregiver Training, Cognitive Retraining, Concurrent Therapy, Functional Mobility, Group Exercise/Act as Ind, UE Funct Exercise/Act, UE Neuromus Re-Ed/Coord, Visual/Perceptual Retrain Treatment Duration: Oct 08, 2018 Frequency: At least 5 of 7 days/Wk (IRF) Estimated Hrs Per Day: 1.5 hours per day Rehab Potential: Fair Time/GCodes Start Time: 08:15 Stop Time: 09:30 Total Time Billed (hr/min): 75 Billed Treatment Time 1 visit-ADL 4 (65 min) FA 1 (10 min) ANA JULIEN Sep 23, 2018 08:25
--- NOTE | 2018-09-23 10:12 | Speech Therapy Daily Note ---
Speech Daily Progress Note Subjective Date Seen by Provider: Sep 23, 2018 Time Seen by Provider: 00:30 The patient was resting in her bed. Her was present for the session. She is happy she will be discharged tomorrow. Objective The patient completed a series of memory exercises with 80% accuracy given moderate repetition. Assessment Assessment Current Status: Good Progress Treatment Plan Discontinue ST, Goals Met Communication Comprehension: 7 Expression: 7 Social Cognition Social Interaction: 7 Problem Solvin Memory: 6 Speech Short Term Goals Short Term Goals Short Term Goals 1) The patient will complete memory exercises related to her daily needs with 90% accuracy given minimal verbal cues. Met 2) The patient will complete problem solving exercises related to her daily needs with 90% accuracy given minimal verbal cues. Met 3) The patient will complete simple 1-3 step directions related to her daily needs with 90% accuracy given minimal verbal cues. Met Speech Homeland Security Program Specialist Goals Correction Goals The patient will complete cognitive function exercises in order to return home safely. Met Speech-Plan Patient/Family Goals Patient/Family Goals: The patient is returning home with her on 09/24/18. Treatment Plan Speech Therapy Treatment Plan: Discontinue ST, Goals Met The patient's level of memory has improved to PLOF. 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 Time Speech Therapy Time In: 09:30 Speech Therapy Time Out: 10:00 Total Billed Time: 30 Billed Treatment Time [address] Sep 23, 2018 10:12
--- NOTE | 2018-09-23 12:08 | Physical Therapy Daily Note ---
PT Daily Note-Current Subjective Pt laying Supine in bed upon arrival. Sp present asleep in recliner as well. Pt agrees to PT for FIM scoring for D/C tomorrow. Pain Location: No Pain Reported Mental Status Patient Orientation: Person, Confused, Place Transfers Therapy Code Descriptions/Definitions Functional [place] Measure: 0=Not Assessed/NA 4=Minimal Assistance 1=Total Assistance 5=Supervision or Setup 2=Maximal Assistance 6=Modified [place] 3=Moderate Assistance 7=Complete [place] Therapy Quality Codes: 6 Independent with activity with or without an assistive device 5 Patient requires set up or clean up by helper. Patient completes activity by themselves 4 Supervision or touching assist (CGA). Dola provide cues , steadying assist 3 The helper provides less than half the effort to complete the activity 2 The helper provides more than half the effort to complete the activity 1 Dependent. The helper does all the effort to complete an activity 7 Patient refused to complete or attempt activity 9 The patient did not perform the activity before the current illness or injury 88 Not attempted due to Medical conditions or safety concerns Transfers (B, C, W/C) (FIM): 5 Scootin Rollin Roll Left to Right (QC): 6 Supine to/from Sit: 5 Sit to/from Stand: 5 Sit to Lying (QC): 5 Sit to Stand (QC): 5 Chair/Sze-ea-Pbhoe Xfer(QC): 5 Bed to/from Chair: 5 Car Transfer (QC): 4 Pt needs increased VC to complete car transfer sequencing. Weight Bearing Right Lower Extremity: Right Full Weight Bearing Left Lower Extremity: Left Full Weight Bearing Gait Training Does the Patient Walk?: Yes Gait (FIM): 4 Distance (FIM): 3=150 ft Distance: 150' Walk 10 feet (QC): 5 Walk 50 ft with 2 Turns(QC): 5 Walk 150 ft (QC): 5 Walking 10ft/uneven surface-QC: 4 Gait Level of Assist: 4 Gait Persons Needed: 1 Gait Assistive Device: FWW Pt needs VC to stay on uneven surface, she tries to roll off. Wheelchair Training Does the Pt Use a Wheelchair?: No Stair Training Stair Training: Handrails/: 2 handrails Stairs (FIM): 2 #of Steps: 4 1 Step (curb) (QC): 4 4 Steps (QC): 4 Level of Assist: 4 Pt needs VC for safety on sequencing and foot placement. Balance Picking up an Object (QC): 4 Special Test Comments Pt reports no dizziness/lightheadedness but SOFTWARE SUPPORT ENGINEER needed to be CGA for task. Exercises NuStep Minutes: 15 NuStep Workload: 5 Treatments Pt completes FIM scoring items including: bed mobility, transfers including car transfer, ambulation including across varying surface, steps and picking up object from floor. Pt uses NuStep for 15m at WL 5 then takes short RB. Pt completes Seated Ex in recliner after returning to room. Pt has all needs met, including call light in hand. Assessment Current Status: Fair Progress Pt has moments of confusion which leads to safety concern due to social awareness. SOFTWARE SUPPORT ENGINEER gives VC to stay closer to FWW while walking. Pt reports she will have Sp and family members to assist her. PT Short Term Goals Short Term Goals Transfers (B,C,W/C) (FIM): 5 (met) PT Long-Term Goals Long-Term Goals PT Long-Term Goals Time Frame: Oct 09, 2018 Transfers (B,C,W/C) (FIM): 5 Sit to Lying (QC): 5 Lying-Sitting on Side/Bed(QC): 5 Sit to Stand (QC): 5 Rollin Roll Left to Right (QC): 5 Chair/Qyw-vx-Codkh Xfer(QC): 5 Car Transfer (QC): 5 Does the Patient Walk: Yes Gait (FIM): 5 Gait distance (FIM): 3=150 ft Distance: 175' Walk 10 feet (QC): 5 Walk 10ft-Uneven Surface(QC): 5 Walk 50ft with 2 Turns (QC): 5 Walk 150 ft (QC): 5 Gait Level of Assist: 5 Gait Assistive Device: FWW Does the Pt use WC or Scooter?: No Stairs (FIM): 1 # of Steps: 1 1 Step (curb) (QC): 4 4 Steps (QC): 9 12 Steps (QC): 9 Stairs Level Of Assist: 4 Picking up an Object (QC): 4 PT Plan Problem List Problem List: Activity Tolerance, Functional Strength, Safety, Gait Treatment/Plan Treatment Plan: Continue Plan of Care Treatment Plan: Bed Mobility, Concurrent Therapy, Education, Functional Activity Anjali, Functional Strength, Group Therapy, Gait, Safety, Therapeutic Exercise, Transfers Treatment Duration: Oct 09, 2018 Frequency: At least 5 of 7 days/Wk (IRF) Estimated Hrs Per Day: 1.5 hours per day Patient and/or Family Agrees t: Yes Safety Risks/Education Patient Education: Gait Training, Transfer Techniques, Correct Positioning, Safety Issues Teaching Recipient: Patient Teaching Methods: Discussion Response to Teaching: Verbalize Understanding Time/GCodes Time In: 1045 Time Out: 1200 Total Billed Treatment Time: 75 Total Billed Treatment 1, GT (15m), FA x2 (30m) & EX x2 (30m) G Codes Necessary: TAMEKA Bates PTA Sep 23, 2018 12:08
--- NOTE | 2018-09-23 14:30 | NUR ---
Called to room by patient. Patient states that does not feel well. complains of feeling sick to his stomach and not being able to catch his breath. T98.6, P64, BP158/65, and oxygen is 95% on room air. Blood sugar is 176 (patient checked using his own glucometer). Dr. Velarde notified with instructions for patient to call her office.
--- NOTE | 2018-09-23 15:15 | NUR ---
answered call lt in room, asked for the fan to be turned off as he was cold. Did this, checked tympanic temperature, was 100.5. Call placed to Dr. Velarde's office, & notified.
[2018-09-23 15:30] VITALS: BP 117/71
--- NOTE | 2018-09-23 15:32 | NUR ---
pt ate nahum daniel, alexandra alanis, & Ensure for low B/S. Have rec'd orders from Dr. Velarde for pt's to go to ED. Staff & PT assisting to transfer from recliner to w/c, pt using B/R toilet now to void. After toileted, will take down to ER/
--- NOTE | 2018-09-23 16:12 | NUR ---
Patient scheduled for discharge home tomorrow with spouse; however, spouse was recently discharge from the hospital yesterday and ARU staff noticed spouse to have a decline, he is now in the ER. This is concerning as Jane's spouse is her primary caregiver and she is cognitively inappropriate to care for self. COLLECTION TELLER attempted to reach patient's daughterKarissa to inquire about alternative plans, a voicemail was left requesting a return call.
--- NOTE | 2018-09-23 18:30 | NUR ---
ROTARY DRIER spoke with patient's daughter, Karissa in regards to alternate discharge planning, as patient's spouse will have surgery tomorrow. Karissa states she will plan for patient to discharge to her home tomorrow, but has requested home health services versus outpatient therapy as she will attempt to balance her job, her childrens' schedules and her mother's care. Karissa is available tomorrow 430p to provide transport home. ROTARY DRIER will provide Karissa with home health provider list for [facility].
--- NOTE | 2018-09-23 19:06 | NUR ---
bedside report received from AMOL MURPHY, assume care of pt
[2018-09-23] MEDS: GABAPENTIN 100 MG (NEURONTIN) CAP PO SCH (20:53)
[2018-09-23] MEDS: DONEPEZIL 5 MG (ARICEPT) TAB PO SCH (20:53)
[2018-09-23] MEDS: MELATONIN 3 MG TABLET PO PRN (20:53)
--- NOTE | 2018-09-23 20:57 | NUR ---
fsbs 517 given NovoLog 8 units & scheduled Levemir 7 units
--- NOTE | 2018-09-23 21:00 | NUR ---
assessments & interventions completed, see assessments & interventions, side rails up x4 bed alarm on
[2018-09-24 05:32] VITALS: BP 145/73
--- NOTE | 2018-09-24 05:32 | NUR ---
fsbs 62 given 4 oz oj & nahum daniel
[2018-09-24] MEDS: inSUlin ASPART (NovoLOG) 1 UNIT/0.01 ML (CHARGE PER UNIT) SC SCH (06:00)
--- NOTE | 2018-09-24 06:12 | NUR ---
fsbs 112
[2018-09-24] MEDS: MULTIVIT W/MINERALS TAB (THERAGRAN M) PO SCH (06:27)
[2018-09-24] MEDS: LEVOTHYROXINE 112 MCG (LEVOTHROID) TAB PO SCH (06:27)
--- NOTE | 2018-09-24 07:08 | NUR ---
bedside report given to SANDRO MURPHY
--- NOTE | 2018-09-24 07:12 | NUR ---
GLASS CUTTER received notification from Dr. Velarde who recently spoke with patient's daughter, Karissa of SNF placement as discharge option. GLASS CUTTER discussed this yesterday evening with Karissa; however, at that time she had chosen to have patient temporarily resided with her. Following discussion with her family, they believe the best option for appropriate oversight would be [facility] vs. swing bed placement. Family has selected first choice of [facility] swing bed. GLASS CUTTER will send referral. Addendum: 09/24/18 at 1418 by CRISTHIAN AMAYA SS [id number]-GLASS CUTTER received acceptance from Marta at [facility] today; however, states patient must arrive by 11am in order to receive therapy evals. After exhausting all options for wheelchair van transport, patient's daughter was able to take off work to provide transport to accommodate this request. GLASS CUTTER reviewed IMM and Patient Choice Letter with both patient and daughter, neither expressed concerns. Please see discharge summary for further information.
[2018-09-24] MEDS: RT-ALBUTEROL SULF 2.5 MG/3 ML PRE-MIX VIAL INH SCH (07:53)
[2018-09-24] MEDS: ASPIRIN E.C. 81 MG (ECOTRIN) TAB PO SCH (08:03)
[2018-09-24] MEDS: FUROSEMIDE 40 MG (LASIX) TAB PO SCH (08:03)
[2018-09-24] MEDS: SENNA W/DOCUSATE (SENOKOT S) TABLET PO SCH (08:03)
[2018-09-24] MEDS: SERTRALINE 50 MG (ZOLOFT) TABLET PO SCH (08:04)
[2018-09-24] MEDS: ATORVASTATIN 40 MG (LIPITOR) TABLET PO SCH (08:04)
[2018-09-24] MEDS: CLOPIDOGREL 75 MG (PLAVIX) TABLET PO SCH (08:04)
[2018-09-24] MEDS: LOSARTAN 25 MG (COZAAR) TAB PO SCH (08:04)
[2018-09-24] MEDS ORDERED: DONE5TAB8 PO (08:52)
[2018-09-24] MEDS ORDERED: CARB1DRO OD (08:52)
[2018-09-24] MEDS ORDERED: SENN-20 PO (08:52)
--- NOTE | 2018-09-24 08:54 | Discharge Inst-Skilled Nursing ---
Discharge Inst-Skilled NF Patient Instructions Patient Problems: Autonomic dysfunction Brittle DM Falls HTN HLP PVD NPH Consult/Follow Up/Orders Follow Up Appt.: [place] Velarde [place] [facility] [place] [facility] [place] Admit to: [facility] Certification (SNF) I certify that SNF services are required to be given on an inpatient basis because of the above named patient's need for prison care on a continuing basis for the conditions(s) for which he/she was receiving inpatient hospital services prior to his/her transfer to the SNF. [facility] Facility Order: Nursing Services, [employer]-Evaluate & Treat, Physical Therapy-Evaluate & Treat, Speech Language-Evaluate & Treat Oxygen Delivery Method: Room Air Discharge Diet: ADA Diet Daily Activity as Tolerated: Yes New & Resume Previous Orders Dulce Velarde Sep 24, 2018 08:53 DULCE VELARDE DO Sep 24, 2018 08:54
--- NOTE | 2018-09-24 08:55 | Discharge Summary ---
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 recently assessed to be functioning well h/o DKA Depression Memory deficit confirmed vascular dementia on SLUMS score of 21/30 started on Aricept during this admit URI-improved on Nebs Insomnia maintained on Melatonin Right eye irritation Plan: Home meds Accuchecks SSI Check labs IRF protocols Updated family on dementia dx Monitor BP closely Aricept 5mg to be maintained Fall prevention Albuterol Neb tx to continue Dry eyes to be treated with refresh tears Continues to improve DC [facility] Thursday then DC home Discharge Summary Discharge Physical Examination Allergies: Coded Allergies: No Known Drug Allergies (Unverified , 09/10/18) Vitals & I&Os Vital Signs Date Time Temp Pulse Resp B/P (MAP) Pulse Ox O2 Delivery O2 Flow Rate FiO2 09/24/18 10:42 84 18 145/73 92 Room Air 09/24/18 05:32 97.6 General Appearance: Alert, Oriented X3, Cooperative Respiratory: Clear to Auscultation, Normal Air Movement Neuro: Normal Gait (With walker), Normal Speech, Strength at 5/5 X4 Ext Psych/Mental Status: Mental Status NL, Mood NL Hospital Course Was the Problem List Reviewed?: Yes Hospital course: Patient had an uneventful hospital course for 15 days while in inpatient rehabilitation. Patient had brittle diabetes and that was made very clear to us by her who sees Dr. Willis endocrinology. Endocrinology allows high sugars of 200 due to risk of severe hypoglycemia. Patient did not require any medication modification except for the addition of Aricept. Cognition greatly improved with the addition of Aricept. She participated in all therapies as required and had no falls during her stay. She had improved immensely with PT and OT was no longer as much of a fall risk as she had been before speech therapy felt like she and improved immensely with her cognition memory and decision making skills. She had improved back to prior level of functioning and beyond that needed swing bed at [facility] for a few days while her was hospitalized for sepsis and cholecystectomy and likely will be discharged with him on Thursday. Labs (last 24 hrs) Laboratory Tests 09/10/18 11:54: Glucometer 199H 09/10/18 12:27: White Blood Count 10.0, Red Blood Count 4.35, Hemoglobin 12.3, Hematocrit 40, Mean Corpuscular Volume 92, Mean Corpuscular Hemoglobin 28, Mean Corpuscular Hemoglobin Concent 31L, Red Cell Distribution Width 14.8H, Platelet Count 227, Mean Platelet Volume 11.8H, Neutrophils (%) (Auto) 67, Lymphocytes (%) (Auto) 24, Monocytes (%) (Auto) 7, Eosinophils (%) (Auto) 2, Basophils (%) (Auto) 1, Neutrophils # (Auto) 6.7, Lymphocytes # (Auto) 2.4, Monocytes # (Auto) 0.7, Eosinophils # (Auto) 0.2, Basophils # (Auto) 0.1, Sodium Level 141, Potassium Level 3.9, Chloride Level 104, Carbon Dioxide Level 27, Anion Gap 10, Blood Urea Nitrogen 28H, Creatinine 1.05, Estimat Glomerular Filtration Rate 52, BUN/Creatinine Ratio 27, Glucose Level 204H, Calcium Level 9.7, Corrected Calcium 9.8, Total Bilirubin 0.3, Aspartate Amino Transf (AST/SGOT) 28, Alanine Aminotransferase (ALT/SGPT) 23, Alkaline Phosphatase 128, Total Protein 7.2, Albumin 3.9 09/10/18 15:38: Glucometer 387H 09/10/18 20:32: Glucometer 133H 09/11/18 06:21: Glucometer 182H 09/11/18 10:38: Glucometer 153H 09/11/18 15:43: Glucometer 387H 09/11/18 20:22: Glucometer 235H 09/12/18 05:29: Glucometer 161H 09/12/18 10:53: Glucometer 233H 09/12/18 15:30: Glucometer 367H 09/12/18 20:30: Glucometer 262H 09/13/18 04:50: Glucometer 78 09/13/18 10:50: Glucometer 522*H 09/13/18 13:28: Glucometer 481*H 09/13/18 15:28: Glucometer 269H 09/13/18 20:25: Glucometer 62L 09/13/18 21:04: Glucometer 91 09/13/18 22:36: Glucometer 140H 09/13/18 23:30: Glucometer 164H 09/14/18 00:48: Glucometer 202H 09/14/18 05:32: Glucometer 342H 09/14/18 07:56: Glucometer 328H 09/14/18 11:44: Glucometer 345H 09/14/18 15:22: Glucometer 312H 09/14/18 20:34: Glucometer 116H 09/14/18 23:56: Glucometer 154H 09/15/18 05:13: Glucometer 273H 09/15/18 10:57: Glucometer 367H 09/15/18 15:50: Glucometer 269H 09/15/18 20:49: Glucometer 250H 09/16/18 05:10: Glucometer 103 09/16/18 11:03: Glucometer 321H 09/16/18 15:29: Glucometer 250H 09/16/18 20:54: Glucometer 299H 09/17/18 05:40: Glucometer 233H 09/17/18 11:05: Glucometer 429*H 09/17/18 16:15: Glucometer 152H 09/17/18 20:51: Glucometer 341H 09/18/18 02:10: Glucometer 243H 09/18/18 05:34: Glucometer 148H 09/18/18 11:04: Glucometer 380H 09/18/18 15:59: Glucometer 294H 09/18/18 20:47: Glucometer 233H 09/19/18 05:08: Glucometer 55*L 09/19/18 05:37: Glucometer 83 09/19/18 08:13: Glucometer 349H 09/19/18 11:13: Glucometer 503*H 09/19/18 15:52: Glucometer 295H 09/19/18 20:40: Glucometer 288H 09/20/18 02:15: Glucometer 203H 09/20/18 05:18: Glucometer 191H 09/20/18 10:52: Glucometer 583*H 09/20/18 15:58: Glucometer 292H 09/20/18 20:31: Glucometer 89 09/21/18 05:22: Glucometer 414*H 09/21/18 05:39: White Blood Count 9.8, Red Blood Count 3.79L, Hemoglobin 10.6L, Hematocrit 34L, Mean Corpuscular Volume 90, Mean Corpuscular Hemoglobin 28, Mean Corpuscular Hemoglobin Concent 31L, Red Cell Distribution Width 14.1, Platelet Count 336, Mean Platelet Volume 11.5H, Neutrophils (%) (Auto) 67, Lymphocytes (%) (Auto) 23, Monocytes (%) (Auto) 7, Eosinophils (%) (Auto) 4, Basophils (%) (Auto) 1, Neutrophils # (Auto) 6.5, Lymphocytes # (Auto) 2.2, Monocytes # (Auto) 0.7, Eosinophils # (Auto) 0.4H, Basophils # (Auto) 0.1, Sodium Level 135, Potassium Level 4.6, Chloride Level 99, Carbon Dioxide Level 25, Anion Gap 11, Blood Urea Nitrogen 30H, Creatinine 0.97, Estimat Glomerular Filtration Rate 56, BUN/Creatinine Ratio 31, Glucose Level 438*H, Calcium Level 9.2, Corrected Calcium 9.7, Total Bilirubin 0.3, Aspartate Amino Transf (AST/SGOT) 20, Alanine Aminotransferase (ALT/SGPT) 17, Alkaline Phosphatase 123, Total Protein 6.6, Albumin 3.4 09/21/18 10:55: Glucometer 198H 09/21/18 16:09: Glucometer 471*H 09/21/18 20:04: Glucometer 397H 09/22/18 05:17: Glucometer 95 09/22/18 10:52: Glucometer 355H 09/22/18 15:41: Glucometer 127H 09/22/18 21:44: Glucometer 405*H 09/23/18 05:28: Glucometer 139H 09/23/18 10:54: Glucometer 414*H 09/23/18 15:22: Glucometer 74 09/23/18 15:40: Glucometer 62L 09/23/18 16:11: Glucometer 150H 09/23/18 20:09: Glucometer 517*H 09/24/18 05:21: Glucometer 62L 09/24/18 06:12: Glucometer 112H Pending Labs Laboratory Tests 09/10/18 11:54: Glucometer 199 09/10/18 12:27: White Blood Count 10.0, Red Blood Count 4.35, Hemoglobin 12.3, Hematocrit 40, Mean Corpuscular Volume 92, Mean Corpuscular Hemoglobin 28, Mean Corpuscular Hemoglobin Concent 31, Red Cell Distribution Width 14.8, Platelet Count 227, Mean Platelet Volume 11.8, Neutrophils (%) (Auto) 67, Lymphocytes (%) (Auto) 24, Monocytes (%) (Auto) 7, Eosinophils (%) (Auto) 2, Basophils (%) (Auto) 1, Neut rophils # (Auto) 6.7, Lymphocytes # (Auto) 2.4, Monocytes # (Auto) 0.7, Eosinophils # (Auto) 0.2, Basophils # (Auto) 0.1, Sodium Level 141, Potassium Level 3.9, Chloride Level 104, Carbon Dioxide Level 27, Anion Gap 10, Blood Urea Nitrogen 28, Creatinine 1.05, Estimat Glomerular Filtration Rate 52, BUN/Creatinine Ratio 27, Glucose Level 204, Calcium Level 9.7, Corrected Calcium 9.8, Total Bilirubin 0.3, Aspartate Amino Transf (AST/SGOT) 28, Alanine Aminotransferase (ALT/SGPT) 23, Alkaline Phosphatase 128, Total Protein 7.2, Albumin 3.9 09/10/18 15:38: Glucometer 387 09/10/18 20:32: Glucometer 133 09/11/18 06:21: Glucometer 182 09/11/18 10:38: Glucometer 153 09/11/18 15:43: Glucometer 387 09/11/18 20:22: Glucometer 235 09/12/18 05:29: Glucometer 161 09/12/18 10:53: Glucometer 233 09/12/18 15:30: Glucometer 367 09/12/18 20:30: Glucometer 262 09/13/18 04:50: Glucometer 78 09/13/18 10:50: Glucometer 522 09/13/18 13:28: Glucometer 481 09/13/18 15:28: Glucometer 269 09/13/18 20:25: Glucometer 62 09/13/18 21:04: Glucometer 91 09/13/18 22:36: Glucometer 140 09/13/18 23:30: Glucometer 164 09/14/18 00:48: Glucometer 202 09/14/18 05:32: Glucometer 342 09/14/18 07:56: Glucometer 328 09/14/18 11:44: Glucometer 345 09/14/18 15:22: Glucometer 312 09/14/18 20:34: Glucometer 116 09/14/18 23:56: Glucometer 154 09/15/18 05:13: Glucometer 273 09/15/18 10:57: Glucometer 367 09/15/18 15:50: Glucometer 269 09/15/18 20:49: Glucometer 250 09/16/18 05:10: Glucometer 103 09/16/18 11:03: Glucometer 321 09/16/18 15:29: Glucometer 250 09/16/18 20:54: Glucometer 299 09/17/18 05:40: Glucometer 233 09/17/18 11:05: Glucometer 429 09/17/18 16:15: Glucometer 152 09/17/18 20:51: Glucometer 341 09/18/18 02:10: Glucometer 243 09/18/18 05:34: Glucometer 148 09/18/18 11:04: Glucometer 380 09/18/18 15:59: Glucometer 294 09/18/18 20:47: Glucometer 233 09/19/18 05:08: Glucometer 55 09/19/18 05:37: Glucometer 83 09/19/18 08:13: Glucometer 349 09/19/18 11:13: Glucometer 503 09/19/18 15:52: Glucometer 295 09/19/18 20:40: Glucometer 288 09/20/18 02:15: Glucometer 203 09/20/18 05:18: Glucometer 191 09/20/18 10:52: Glucometer 583 09/20/18 15:58: Glucometer 292 09/20/18 20:31: Glucometer 89 09/21/18 05:22: Glucometer 414 09/21/18 05:39: White Blood Count 9.8, Red Blood Count 3.79, Hemoglobin 10.6, Hematocrit 34, Mean Corpuscular Volume 90, Mean Corpuscular Hemoglobin 28, Mean Corpuscular Hemoglobin Concent 31, Red Cell Distribution Width 14.1, Platelet Count 336, Mean Platelet Volume 11.5, Neutrophils (%) (Auto) 67, Lymphocytes (%) (Auto) 23, Monocytes (%) (Auto) 7, Eosinophils (%) (Auto) 4, Basophils (%) (Auto) 1, Neutrophils # (Auto) 6.5, Lymphocytes # (Auto) 2.2, Monocytes # (Auto) 0.7, Eosinophils # (Auto) 0.4, Basophils # (Auto) 0.1, Sodium Level 135, Potassium Level 4.6, Chloride Level 99, Carbon Dioxide Level 25, Anion Gap 11, Blood Urea Nitrogen 30, Creatinine 0.97, Estimat Glomerular Filtration Rate 56, BUN/Creatinine Ratio 31, Glucose Level 438, Calcium Level 9.2, Corrected Calcium 9.7, Total Bilirubin 0.3, Aspartate Amino Transf (AST/SGOT) 20, Alanine Aminotransferase (ALT/SGPT) 17, Alkaline Phosphatase 123, Total Protein 6.6, Albumin 3.4 09/21/18 10:55: Glucometer 198 09/21/18 16:09: Glucometer 471 09/21/18 20:04: Glucometer 397 09/22/18 05:17: Glucometer 95 09/22/18 10:52: Glucometer 355 09/22/18 15:41: Glucometer 127 09/22/18 21:44: Glucometer 405 09/23/18 05:28: Glucometer 139 09/23/18 10:54: Glucometer 414 09/23/18 15:22: Glucometer 74 09/23/18 15:40: Glucometer 62 09/23/18 16:11: Glucometer 150 09/23/18 20:09: Glucometer 517 09/24/18 05:21: Glucometer 62 09/24/18 06:12: Glucometer 112 Discharge Home Medications: Active Scripts Active Aricept (Donepezil HCl) 5 Mg Tablet 5 Mg PO HS 30 Days Senna-Time S Tablet (Sennosides/Docusate Sodium) 1 Each Tablet 1 Ea PO BID 30 Days Refresh Plus (Carboxymethylcellulose Sodium) 1 Each Droperette 0 Each OD PRN PRN 30 Days Reported Ocuvite Adult 50 Plus Softgel (C,E,Zinc,Copper 11/Wdljf2x/Lut) 1 Each Capsule 1 Cap PO DAILY Meclizine HCl 25 Mg Tablet 25 Mg PO Q8H PRN Aspirin EC (Aspirin) 81 Mg Tablet.dr 162 Mg PO DAILY TAKES 2 (81MG) TABLETS (HAS NOT INCREASED DOSE TO 2 TABS YET, HAS BEEN TAKING 1 DAILY BUT RECENTLY ORDERED TO INCREASE) Clopidogrel (Clopidogrel Bisulfate) 75 Mg Tablet 75 Mg PO DAILY LAST FILLED #90 04-01-18 Novolog (Insulin Aspart) 100 Unit/1 Ml Susp SC TIDAC TAKES 5 UNITS + CORRECTION FACTOR WITH MEALS; FOR EVERY 100 OVER BS 200 ADD 1 EXTRA UNIT OF INSULIN: <200 ONLY USES THE SCHEDULED 5 UNITS 200-300 = 6 UNITS 300-400 = 7 UNITS 400-500 = 8 UNITS... Lantus (Insulin Glargine,Hum.rec.anlog) 100 Unit/1 Ml Vial 7 Units SQ HS Lantus (Insulin Glargine,Hum.rec.anlog) 100 Unit/1 Ml Vial 6 Units SC DAILY Levothyroxine Sodium 112 Mcg Tablet 112 Mcg PO DAILY Sertraline HCl 50 Mg Tablet 50 Mg PO DAILY Atorvastatin Calcium 40 Mg Tablet 40 Mg PO DAILY Losartan Potassium 25 Mg Tablet 25 Mg PO DAILY Furosemide 40 Mg Tablet 40 Mg PO DAILY Gabapentin 100 Mg Capsule PO UD FILLED 08-17-18 TAKE 2 (100MG) CAPSULES AT BEDTIME X 2 WEEKS THEN INCREASE TO 3 (100MG) CAPSULES AT BEDTIME THEREAFTER Ondansetron Odt (Ondansetron) 4 Mg Tab.rapdis 4 Mg PO Q6H PRN Diazepam 2 Mg Tablet 1 Mg PO BID PRN TAKES 1/2 (2MG) TABLET Instructions to patient/family Please see electronic discharge instructions given to patient. Diagnosis/Problems Diagnosis/Problems (1) Autonomic dysfunction with type 2 diabetes mellitus (2) TIA (transient ischemic attack) (3) Anxiety (4) Depression (5) DKA (diabetic ketoacidoses) (6) NPH (normal pressure hydrocephalus) (7) Hypothyroidism (8) Hypertension (9) Falls frequently (10) CVA (cerebral vascular accident) (11) Memory deficit (12) Myocardial infarct, old (13) Presbycusis of both ears (14) Diabetes mellitus, insulin dependent (IDDM), controlled (15) HVAC PROJECT ENGINEER (ventriculoperitoneal) shunt status Clinical Quality Measures DVT/VTE Risk/Contraindication: Risk Factor Score Per Nursin RFS Level Per Nursing on Admit: 4+=Very High VERONICA GALVEZ DO Sep 24, 2018 08:54
--- NOTE | 2018-09-24 10:14 | NUR ---
THIS RN CALLED REPORT TO KATHERINE GUZMAN AT [facility] AT THIS TIME.
[2018-09-24 10:42] VITALS: BP 145/73
--- NOTE | 2018-09-24 10:42 | NUR ---
ELIEZER ZUNIGA demonstrates understanding of discharge instructions and accurately returns instructions upon questioning. Copy of Post-Discharge Instructions given to PT. ELIEZER ZUNIGA is not able to manage continuing needs after discharge. PT DISCHARGED TO [facility]. Patients belongings returned to PT. Patient discharged from [facility]- on 09/24/18 at 1042. ELIEZER ZUNIGA left floor via WC, accompanied by STAFF.
--- NOTE | 2018-09-24 15:59 | Therapy Team Discharge Summary ---
Therapy Discharge Summary Discharge Recommendations Date of Discharge Sep 24, 2018 at 10:42 Therapy D/C Recommendations: Physical Therapy Home Care Occupational Therapy Decreased Activ Tolerance, Decreased Safety Aware, Decreased UE Strength, Impaired Cognition, Impaired Coordination, Impaired Funct Balance, Impaired Self-Care Skills Speech-Language Pathology The patient was admitted to the ARU s/p CVA. She was evaluated and treated for cognitive deficits with progress made to 75-80% with moderate verbal cues. The patient was admitted to Swing Bed in [facility] this date. She is discharged from [facility] at this time as well. PT Weaver [employer]le Loom Goals Senior Care Goals PT Senior Care Goals Time Frame: Sep 24, 2018 Transfers (B,C,W/C) (FIM): 5 Roll Left to Right (QC): 5 Sit to Lying (QC): 5 Lying-Sitting on Side/Bed(QC): 5 Sit to Stand (QC): 5 Chair/Htw-th-Zmgic Xfer(QC): 5 Car Transfer (QC): 5 Does the Patient Walk: Yes Gait (FIM): 5 Gait distance (FIM): 3=150 ft Distance: 175' Walk 10 feet (QC): 5 Walk 10ft-Uneven Surface(QC): 5 Walk 50ft with 2 Turns (QC): 5 Walk 150 ft (QC): 5 Gait Level of Assist: 5 Gait Assistive Device: FWW Does the Pt use WC or Scooter?: No Stairs (FIM): 1 # of Steps: 1 1 Step (curb) (QC): 4 4 Steps (QC): 9 12 Steps (QC): 9 Stairs Level Of Assist: 4 Picking up an Object (QC): 4 OT [employer] Goals [employer] Goals Time Frame: Oct 08, 2018 Eating (FIM): 6 (met-09/23/18) Eating (QC): 6 (met-09/23/18) Oral Hygiene (QC): 6 (met-09/23/18) Grooming(FIM): 6 (met-09/23/18) Bathing(FIM): 6 (not met) Bathing Location: L Arm, R Arm, L Upper Leg, R Upper Leg, L Lower Leg (including foot), R Lower Leg (including foot), Chest, Abdomen, Buttocks, Per ineal Area Shower/Bathe Self (QC): 6 (not met) Upper Body Dressing(FIM): 6 (not met) Upper Body Dressing (QC): 6 (not met) Lower Body Dressing(FIM): 6 (not met) Lower Body Dressing (QC): 6 (not met) On/Off Footwear (QC): 6 (not met) Toileting(FIM): 6 (not met) Toileting Hygiene (QC): 6 (not met) Transfers (B,C,W/C) (FIM): 6 (not met) Toilet/Commode Transfer(FIM): 6 (not met) Toilet/Commode Transfer (QC): 6 (not met) Tub Transfer(FIM): 6 (not met) Shower Transfer(FIM): 6 (not met) Additional Goals: 1-Demonstrate ADL Tasks, 2-Verbalize Understanding, 3- ImproveStrength/Anjali 1=Demonstrate adherence to instructed precautions during ADL tasks. 2=Patient will verbalize/demonstrate understanding of assistive devic es/modifications for ADL. 3=Patient will improve strength/tolerance for activity to enable patient to perform ADL's. Speech [employer] Goals Senior Care Goals The patient will complete cognitive function exercises in order to return home safely. Met 75-80% SHAW PALENCIA Sep 24, 2018 15:59
--- NOTE | 2018-09-28 08:38 | Therapy Team Discharge Summary ---
Therapy Discharge Summary Discharge Recommendations Date of Discharge Sep 24, 2018 at 10:42 Therapy D/C Recommendations: Physical Therapy Home Care Physical Therapy This patient was seen on ARU as a direct admit due to decreased safety and mobility at home with reports of recent falls. Her PLOF was supervision with all mobility from her spouse due to hx of CVA and decreased safety awareness. Upon initial admission, pt was min assist with transfers and gait. Treatment focused on functional strength and balance with gait and transfer training. Pt required heavy cues for safety and sequencing to complete tasks effectively and safely. At discharge, she was SBA with transfers and remained CGA with gait for safety purposes, thus goals not fully met. However, at the discretion of the physician, pt was transferred to a swing bed unit in [place]. Will DC pt at this time. Occupational Therapy Decreased Activ Tolerance, Decreased Safety Aware, Decreased UE Strength, Impaired Cognition, Impaired Coordination, Impaired Funct Balance, Impaired Self-Care Skills PT Fdc Goals Dry Cell Tester Goals PT Fdc Goals Time Frame: Sep 24, 2018 Transfers (B,C,W/C) (FIM): 5 (met) Roll Left to Right (QC): 5 Sit to Lying (QC): 5 Lying-Sitting on Side/Bed(QC): 5 Sit to Stand (QC): 5 Chair/Fka-sj-Lpdko Xfer(QC): 5 Car Transfer (QC): 5 Does the Patient Walk: Yes Gait (FIM): 5 (unmet, scored a 4) Gait distance (FIM): 3=150 ft Distance: 175' Walk 10 feet (QC): 5 Walk 10ft-Uneven Surface(QC): 5 Walk 50ft with 2 Turns (QC): 5 Walk 150 ft (QC): 5 Gait Level of Assist: 5 Gait Assistive Device: FWW Does the Pt use WC or Scooter?: No Stairs (FIM): 1 (met) # of Steps: 1 1 Step (curb) (QC): 4 4 Steps (QC): 9 12 Steps (QC): 9 Stairs Level Of Assist: 4 Picking up an Object (QC): 4 OT Dry Cell Tester Goals Fdc Goals Time Frame: Oct 08, 2018 Eating (FIM): 6 (met-09/23/18) Eating (QC): 6 (met-09/23/18) Oral Hygiene (QC): 6 (met-09/23/18) Grooming(FIM): 6 (met-09/23/18) Bathing(FIM): 6 (not met) Bathing Location: L Arm, R Arm, L Upper Leg, R Upper Leg, L Lower Leg (including foot), R Lower Leg (including foot), Chest, Abdomen, Buttocks, Perineal Area Shower/Bathe Self (QC): 6 (not met) Upper Body Dressing(FIM): 6 (not met) Upper Body Dressing (QC): 6 (not met) Lower Body Dressing(FIM): 6 (not met) Lower Body Dressing (QC): 6 (not met) On/Off Footwear (QC): 6 (not met) Toileting(FIM): 6 (not met) Toileting Hygiene (QC): 6 (not met) Transfers (B,C,W/C) (FIM): 6 (not met) Toilet/Commode Transfer(FIM): 6 (not met) Toilet/Commode Transfer (QC): 6 (not met) Tub Transfer(FIM): 6 (not met) Shower Transfer(FIM): 6 (not met) Additional Goals: 1-Demonstrate ADL Tasks, 2-Verbalize Understanding, 3- ImproveStrength/Anjali 1=Demonstrate adherence to instructed precautions during ADL tasks. 2=Patient will verbalize/demonstrate understanding of assistive devices/modifications for ADL. 3=Patient will improve strength/tolerance for activity to enable patient to perform ADL's. Speech Fdc Goals Dry Cell Tester Goals The patient will complete cognitive function exercises in order to return home safely. Met 75-80% ANA DIALLO PT Sep 28, 2018 08:38
--- NOTE | 2018-09-28 10:04 | Therapy Team Discharge Summary ---
Therapy Discharge Summary Discharge Recommendations Date of Discharge Sep 24, 2018 at 10:42 Therapy D/C Recommendations: Physical Therapy Home Care Occupational Therapy Pt admitted to ARU from home secondary to debility and weakness. On admission pt required max assist with LE dressing, mod assist with toileting and bathing, and min assist with UE dressing. Skilled OT intervention focused on ADL training, transfers,and strengthening. Pt made some progress with therapy and by discharge is completing eating and grooming with modified independence, UE dressing with SBA, and min assist with LE dressing, toileting, and toilet transfers. Pt met goals for eating and grooming, but did not meet other OT LTG. Pt was discharged to [facility] for continued care. D/C ARU OT. Decreased Activ Tolerance, Decreased Safety Aware, Decreased UE Strength, Impaired Cognition, Impaired Coordination, Impaired Funct Balance, Impaired Self-Care Skills PT [facility] Goals [facility] Goals PT [facility] Goals Time Frame: Sep 24, 2018 Transfers (B,C,W/C) (FIM): 5 (met) Roll Left to Right (QC): 5 Sit to Lying (QC): 5 Lying-Sitting on Side/Bed(QC): 5 Sit to Stand (QC): 5 Chair/Gah-yh-Aqilk Xfer(QC): 5 Car Transfer (QC): 5 Does the Patient Walk: Yes Gait (FIM): 5 (unmet, scored a 4) Gait distance (FIM): 3=150 ft Distance: 175' Walk 10 feet (QC): 5 Walk 10ft-Uneven Surface(QC): 5 Walk 50ft with 2 Turns (QC): 5 Walk 150 ft (QC): 5 Gait Level of Assist: 5 Gait Assistive Device: FWW Does the Pt use WC or Scooter?: No Stairs (FIM): 1 (met) # of Steps: 1 1 Step (curb) (QC): 4 4 Steps (QC): 9 12 Steps (QC): 9 Stairs Level Of Assist: 4 Picking up an Object (QC): 4 OT [facility] Goals [facility] Goals Time Frame: Oct 08, 2018 Eating (FIM): 6 (met-09/23/18) Eating (QC): 6 (met-09/23/18) Oral Hygiene (QC): 6 (met-09/23/18) Grooming(FIM): 6 (met-09/23/18) Bathing(FIM): 6 (not met) Bathing Location: L Arm, R Arm, L Upper Leg, R Upper Leg, L Lower Leg (including foot), R Lower Leg (including foot), Chest, Abdomen, Buttocks, Perineal Area Shower/Bathe Self (QC): 6 (not met) Upper Body Dressing(FIM): 6 (not met) Upper Body Dressing (QC): 6 (not met) Lower Body Dressing(FIM): 6 (not met) Lower Body Dressing (QC): 6 (not met) On/Off Footwear (QC): 6 (not met) Toileting(FIM): 6 (not met) Toileting Hygiene (QC): 6 (not met) Transfers (B,C,W/C) (FIM): 6 (not met) Toilet/Commode Transfer(FIM): 6 (not met) Toilet/Commode Transfer (QC): 6 (not met) Tub Transfer(FIM): 6 (not met) Shower Transfer(FIM): 6 (not met) Additional Goals: 1-Demonstrate ADL Tasks, 2-Verbalize Understanding, 3- ImproveStrength/Anjali 1=Demonstrate adherence to instructed precautions during ADL tasks. 2=Patient will verbalize/demonstrate understanding of assistive devices/modifications for ADL. 3=Patient will improve strength/tolerance for activity to enable patient to perform ADL's. Speech [facility] Goals [facility] Goals The patient will complete cognitive function exercises in order to return home safely. Met 75-80% DILLAN JOYCE OT Sep 28, 2018 10:04
== END 2018-09-24 10:42 | disposition swing bed (61) | DRG 74 ==
PROVIDERS: ADMIT Internal Medicine; ATTEND Internal Medicine
DX: E11.43 Type 2 diabetes mellitus with diabetic autonomic (poly)neuropathy (principal); R29.6 Repeated falls; E11.65 Type 2 diabetes mellitus with hyperglycemia; E11.51 Type 2 diabetes mellitus with diabetic peripheral angiopathy without gangrene; G91.2 (Idiopathic) normal pressure hydrocephalus; F01.50 Vascular dementia, unspecified severity, without behavioral disturbance, psychotic disturbance, mood disturbance, and anxiety; E03.9 Hypothyroidism, unspecified; I10 Essential (primary) hypertension; I25.10 Atherosclerotic heart disease of native coronary artery without angina pectoris; F32.9 Major depressive disorder, single episode, unspecified; E78.5 Hyperlipidemia, unspecified; F41.9 Anxiety disorder, unspecified; H91.13 Presbycusis, bilateral; J06.9 Acute upper respiratory infection, unspecified; G47.00 Insomnia, unspecified; H57.89 Other specified disorders of eye and adnexa; I25.2 Old myocardial infarction; Z79.4 Long term (current) use of insulin; Z86.73 Personal history of transient ischemic attack (TIA), and cerebral infarction without residual deficits; Z98.2 Presence of cerebrospinal fluid drainage device
CPT/HCPCS: 36415; 80053; 82962; 85025; 94640; 94760

== ENCOUNTER 2019-01-18 16:20 | Inpatient (IN) | payer MEDICARE, OTHER ==
[~2019-01-18] VITALS: Ht 152.4 cm; Wt 70.0 kg
[~2019-01-18 16:20] MED LIST: ASPI-983 PO; ATOR40TA70 PO; C,E,1CAP PO; CARB1DRO OD; CLOP75TA28 PO; DIAZ2TAB2 PO; DONE5TAB8 PO; FURO40TA4 PO; GABA-486 PO; INSU100V16 SC; INSU100V16 SQ; INSU100V6 SC; INSU100V6 SQ; LEVO112T55 PO; LOSA25TA41 PO; MECL-106 PO; ONDA4TAB11 PO; SENN-20 PO; SERT50TA9 PO
[2019-01-18] MEDS ORDERED: ACETAMINOPHEN 500 MG TAB (TYLENOL) PO PRN (16:45)
[2019-01-18] MEDS ORDERED: DOCUSATE SODIUM 100 MG (COLACE) CAP PO PRN (16:45)
[2019-01-18] MEDS ORDERED: LOPERAMIDE 2 MG (IMODIUM) TABLET PO PRN (16:45)
[2019-01-18] MEDS ORDERED: CALCIUM CARBONATE 500 MG (TUMS) TAB.CHEW PO PRN (16:45)
[2019-01-18] MEDS ORDERED: VANCOMYCIN INJECTION 1,000 MG in NS (IVPB) 250 ML IV SCH (16:45)
[2019-01-18] MEDS ORDERED: ONDANSETRON 4 MG/2 ML (SDV) Z0FRAN IVP PRN (16:45)
[2019-01-18] MEDS ORDERED: ONDANSETRON 4 MG (ZOFRAN) ORAL DISSOLVE TAB PO PRN (16:45)
[2019-01-18] MEDS ORDERED: diphenhydrAMINE 25 MG TAB (BENADRYL) PO PRN (16:45)
[2019-01-18] MEDS ORDERED: MELATONIN 3 MG TABLET PO PRN (16:45)
[2019-01-18] MEDS: HYDROcodone/APAP 5 MG/325 MG (LORTAB) TAB PO PRN ×2 (17:41→22:40)
[2019-01-18] MEDS: fentaNYL INJECTION 100 MCG/2 ML AMP IVP PRN (17:41)
[2019-01-18] MEDS: ENOXAPARIN 40 MG/0.4 ML (LOVENOX) SYR SC SCH (17:45)
[2019-01-18] MEDS: NS IV 1000 ML 1,000 ML IV SCH (17:45)
[2019-01-18 17:47] LABS: BASOPHILS # (AUTO) 0.1 10^3/uL (0.0-0.1); BASOPHILS % (AUTO) 1 % (0-10); EOSINOPHILS # (AUTO) 0.3 10^3/uL (0.0-0.3); EOSINOPHILS % (AUTO) 4 % (0-10); HEMATOCRIT 37 % (35-52); HEMOGLOBIN 11.3 G/DL (11.5-16.0); LYMPHOCYTES # (AUTO) 2.5 X 10^3 (1.0-4.0); LYMPHOCYTES % (AUTO) 33 % (12-44); MEAN CORPUSCULAR HEMOGLOBIN 27 PG (25-34); MEAN CORPUSCULAR HGB CONC 31 G/DL (32-36); MEAN CORPUSCULAR VOLUME 89 FL (80-99); MEAN PLATELET VOLUME 12.2 FL (7.4-10.4); MONOCYTES # (AUTO) 0.7 X 10^3 (0.0-1.0); MONOCYTES % (AUTO) 9 % (0-12); NEUTROPHILS # (AUTO) 4.1 X 10^3 (1.8-7.8); NEUTROPHILS % (AUTO) 53 % (42-75); PLATELET COUNT 264 10^3/uL (130-400); RED CELL DISTRIBUTION WIDTH 14.4 % (10.0-14.5); WHITE BLOOD COUNT 7.7 10^3/uL (4.3-11.0)
[2019-01-18] MEDS ORDERED: VANCOMYCIN 1250 MG/NS 250 ML IVPB IV NR ×2 (18:00)
[2019-01-18] MEDS ORDERED: CEFEPIME INJECTION 1,000 MG in WATER (STERILE) FOR INJECTION 10 ML IV SCH (18:00)
[2019-01-18 18:10] LABS: ALBUMIN 3.8 GM/DL (3.2-4.5); BILIRUBIN,TOTAL 0.2 MG/DL (0.1-1.0); CALCIUM 9.9 MG/DL (8.5-10.1); CREATININE SERUM 0.93 MG/DL (0.60-1.30); POTASSIUM 3.8 MMOL/L (3.6-5.0); TOTAL PROTEIN 7.4 GM/DL (6.4-8.2)
[2019-01-18] MEDS ORDERED: FLU QUADRIvalent (5+ YOA) 2019-2020 (AFLURIA) 0.5 ML IM ONE (18:15)
--- NOTE | 2019-01-18 19:05 | NUR ---
CR 0.93; WT 69.7 KG; CR CL ~ 45 (USED ADJ WT OF 58 KG); VANCO 1250 MG IV BOLUS GIVEN THIS PM. CONTINUE VANCO 1250 MG IV Q24H & TROUGH AFTER 3RD DOSE
--- NOTE | 2019-01-18 19:30 | NUR ---
AT TIME OF ASSESSMENT/SHIFT CHANGE PATIENT IS VERY SEDATE. MINIMALLY RESPONDS TO QUESTIONS. IS AROUSED BY PAINFUL STIMULATION MOVING FOOT.
--- NOTE | 2019-01-18 20:00 | Progress Note ---
Progress Note Scribed by: Wagner Mishra She states she is doing about the same as last time. I told her she looks better, and she says she does feel better. She stays in bed most of the time and she is getting annoyed with that. Her says that until she can walk he is not really able to help her enough at home. He states that he does not have a rmap at home. He thinks that until she can help with walking that he can not really take her home. He would like to to have her meds checked because she has been depressed recently. She has not been taking the Sertraline that is for the depression while at [facility]. I told her that we have it on our list and that she should be taking it, and that it must have been missed. We can have it corrected. Asked about her next visit to Dr Jacinto, but they are unsure. Her asked about something to keep her from biting her nails. I told them about getting the OTC "No Bite" topical cream to put on her fingers. Her asked about setting up appointment for Dr Frank eye doctor in [facility]. Asked about where to get a flu shot. I told them I will write a prescription for one at [facility]. The said he told them at the facility that it looks a lot worse here recently. He states taht a couple weeks ago it was not red or swollen like it is now. He says that if they can treat it over there it is okay but he does not want her to lose the foot. I told them that we can go to the hospital to have it treated. I told them we could go Dr Barraza at [facility] for a vascular study since the last time you saw him was before the sore. THe is willing to defer the decision to me, but he would like to have the wound looked at soon. He thinks that what they are currently doing is not wor inocente well enough. If we put her in the hospital here [facility] because [facility] surgeons are available and we can put in a PICC line. The husbands states he can take her over there tonight if we need him to do it. He asks about taking her stuff out the home in order to avoid them charging him for days when she is not there. I called [facility] to direct admit for right leg cellulitis. Instructed the to give the hospital the medication list. Exam: Her right foot has become more tender and is red and swollen at 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 VERONICA GALVEZ DO Jan 18, 2019 20:00
[2019-01-18 20:25] VITALS: BP_SYST 170; BP_SYST 180; BP_DIAS 69; BP_DIAS 73
--- NOTE | 2019-01-18 21:00 | NUR ---
AT THIS TIME PATIENT IS NOT AWAKE ENOUGH TO GIVE ORAL MEDICATIONS, WILL SEE IF PATIENT WAKES MORE PAIN MEDICATIONS WEAR OFF
--- NOTE | 2019-01-18 21:40 | Consultation - Surgery ---
History of Present Illness History of Present Illness Patient Consulted On(marla/time) 01/18/19 21:29 Time Seen by Provider: 20:34 History of Present Illness Surgery asked to consult regarding Right foot Cellulitis. HPI per IM: She states she is doing about the same as last time. I told her she looks better, and she says she does feel better. She stays in bed most of the time and she is getting annoyed with that. Her says that until she can walk he is not really able to help her enough at home. He states that he does not have a rmap at home. He thinks that until she can help with walking that he can not really take her home. He would like to to have her meds checked because she has been depressed recently. She has not been taking the Sertraline that is for the depression while at [facility]. I told her that we have it on our list and that she should be taking it, and that it must have been missed. We can have it corrected. Asked about her next visit to Dr Jacinto, but they are unsure. Her asked about something to keep her from biting her nails. I told them about getting the OTC "No Bite" topical cream to put on her fingers. Her asked about setting up appointment for Dr Frank eye doctor in [facility]. Asked about where to get a flu shot. I told them I will write a prescription for one at [facility]. The said he told them at the facility that it looks a lot worse here recently. He states taht a couple weeks ago it was not red or swollen like it is now. He says that if they can treat it over there it is okay but he does not want her to lose the foot. I told them that we can go to the hospital to have it treated. I told them we could go Dr Barraza at [facility] for a vascular study since the last time you saw him was before the sore. THe is willing to defer the decision to me, but he would like to have the wound looked at soon. He thinks that what they are currently doing is not working well enough. If we put her in the hospital here it wound be at [facility] because the surgeons are available and we can put in a PICC line. The husbands states he can take her over there tonight if we need him to do it. He asks about taking her stuff out the home in order to avoid them charging him for days when she is not there. I called [facility] to direct admit for right leg cellulitis. Instructed the to give the hospital the medication list. When I saw pt this evening she was not able to respond to any questions and unfortunately had already left for home. Allergies and Home Medications Allergies Coded Allergies: hydromorphone (Verified Allergy, Severe, 01/18/19) MAKES HER " CRAZY" PER HER amoxicillin (Verified Allergy, Mild, 01/18/19) HUSBNAD STATES " SHE CANNOT SLEEP" morphine (Verified Allergy, Mild, 01/18/19) MAKES HER "CRAZY" PER HER Home Medications Aspirin 81 Mg Tablet.dr, 162 MG PO DAILY, (Reported) TAKES 2 (81MG) TABLETS (HAS NOT INCREASED DOSE TO 2 TABS YET, HAS BEEN TAKING 1 DAILY BUT RECENTLY ORDERED TO INCREASE) Atorvastatin Calcium 40 Mg Tablet, 40 MG PO DAILY, (Reported) C,E,Zinc,Copper 11/Gtbrc3x/Lut 1 Each Capsule, 1 CAP PO DAILY, (Reported) Carboxymethylcellulose Sodium 1 Each Droperette, 0 EACH OD PRN PRN for DRY EYES Prescribed by: VERONICA GALVEZ on 09/24/18851 Clopidogrel Bisulfate 75 Mg Tablet, 75 MG PO DAILY, (Reported) LAST FILLED #90 04-01-18 Diazepam 2 Mg Tablet, 1 MG PO BID PRN for ANXIETY, (Reported) TAKES 1/2 (2MG) TABLET Donepezil HCl 5 Mg Tablet, 5 MG PO HS Prescribed by: VERONICA GALVEZ on 09/24/18851 Furosemide 40 Mg Tablet, 40 MG PO DAILY, (Reported) Gabapentin 100 Mg Capsule, PO UD, (Reported) FILLED 08-17-18 TAKE 2 (100MG) CAPSULES AT BEDTIME X 2 WEEKS THEN INCREASE TO 3 (100MG) CAPSULES AT BEDTIME THEREAFTER Insulin Aspart 100 Unit/1 Ml Susp, SC TIDAC, (Reported) TAKES 5 UNITS + CORRECTION FACTOR WITH MEALS; FOR EVERY 100 OVER BS 200 ADD 1 EXTRA UNIT OF INSULIN: <200 ONLY USES THE SCHEDULED 5 UNITS 200-300 = 6 UNITS 300-400 = 7 UNITS 400-500 = 8 UNITS... Insulin Glargine,Hum.rec.anlog 100 Unit/1 Ml Vial, 6 UNITS SC DAILY, (Reported) Insulin Glargine,Hum.rec.anlog 100 Unit/1 Ml Vial, 7 UNITS SQ HS, (Reported) Levothyroxine Sodium 112 Mcg Tablet, 112 MCG PO DAILY, (Reported) Losartan Potassium 25 Mg Tablet, 25 MG PO DAILY, (Reported) Meclizine HCl 25 Mg Tablet, 25 MG PO Q8H PRN for DIZZINESS, (Reported) Ondansetron 4 Mg Tab.rapdis, 4 MG PO Q6H PRN for NAUSEA/VOMITING-1ST LINE, (Reported) Sennosides/Docusate Sodium 1 Each Tablet, 1 EA PO BID Prescribed by: VERONICA GALVEZ on 09/24/18 0852 Sertraline HCl 50 Mg Tablet, 50 MG PO DAILY, (Reported) Patient Home Medication List Home Medication List Reviewed: Yes Past Rdmiljl-Xycixo-Dnmjhw Hx Patient Social History Alcohol Use: Denies Use Recreational Drug Use: No Smoking Status: Never a Smoker Recent Foreign Travel: No Contact w/Someone Who Travel: No Recent Infectious Disease Expo: No Recent Hopitalizations: No Physical Abuse Screen: No Sexual Abuse: No Immunizations Up To Date PED Vaccines UTD: No Date of Pneumonia Vaccine: Sep 10, 2016 Seasonal Allergies Seasonal Allergies: Yes Surgeries Surgeries: Orthopedic, Vascular Surgery Respiratory History of Respiratory Disorde: No Cardiovascular History of Cardiac Disorders: Yes Cardiac Disorders: Coronary Artery Disease, High Cholesterol, Hypertension, Peripheral Vascular Neurological Neurological Disorders: Dementia, Neuropathy, Stroke, TIA Genitourinary History of Genitourinary Disor: Yes Genitourinary Disorders: Bladder Infection Gastrointestinal History of Gastrointestinal Di: No Musculoskeletal History of Musculoskeletal Dis: Yes Musculoskeletal Disorders: Foot Drop, Spasms Endocrine History of Endocrine Disorders: Yes Endocrine Disorders: Diabetes, Insulin dep, Hypothyroidsim HEENT History of HEENT Disorders: Yes (LOSS OF PERIPHERAL VISION) Hearing Impairment: Hard of Hearing Cancer History of Cancer: No Psychosocial History of Psychiatric Problem: Yes Behavioral Health Disorders: Depression Integumentary History of Skin or Integumenta: No Blood Transfusions History of Blood Disorders: No Family Medical History Significant Family History: Heart Disease, Diabetes, Migraines Family Medial History: Cardiovascular disease 19 FATHER Diabetes mellitus 19 FATHER Headache disorder 19 MOTHER Review of Systems-General ROS-Unable to Obtain: pt does not respond to qestions Physical Exam-General Problems Physical Exam Vital Signs Vital Signs - First Documented 01/18/19 01/18/19 19:33 20:25 Temp 36.2 Pulse 93 Resp 18 B/P (MAP) 170/73 (105) Pulse Ox 97 O2 Delivery Room Air Capillary Refill : General Appearance: no apparent distress, other (chronically ill) Eyes: Bilateral Eye PERRL, Bilateral Eye EOMI HEENT: pharynx normal; No scleral icterus (R), No scleral icterus (L) Respiratory: chest non-tender, lungs clear, normal breath sounds, no respiratory distress, no accessory muscle use Cardiovascular: regular rate, rhythm, no murmur Gastrointestinal: normal bowel sounds, non tender, soft, no organomegaly, no pulsatile mass Extremities: no calf tenderness, normal capillary refill, other (right foot has erythema on 4th and 5th digit, with area on right lateral aspect of 4th toe that looks like ulceration) Neurologic/Psychiatric: disoriented x 3, other (pt could only moan, no meaningful responses) Lymphatic: no adenopathy (neck, axilla or groin) Data Review Labs Laboratory Tests 01/18/19 17:35: White Blood Count 7.7, Red Blood Count 4.13L, Hemoglobin 11.3L, Hematocrit 37, Mean Corpuscular Volume 89, Mean Corpuscular Hemoglobin 27, Mean Corpuscular Hemoglobin Concent 31L, Red Cell Distribution Width 14.4, Platelet Count 264, Mean Platelet Volume 12.2H, Neutrophils (%) (Auto) 53, Lymphocytes (%) (Auto) 33, Monocytes (%) (Auto) 9, Eosinophils (%) (Auto) 4, Basophils (%) (Auto) 1, Neutrophils # (Auto) 4.1, Lymphocytes # (Auto) 2.5, Monocytes # (Auto) 0.7, Eosinophils # (Auto) 0.3, Basophils # (Auto) 0.1, Sodium Level 142, Potassium Level 3.8, Chloride Level 104, Carbon Dioxide Level 25, Anion Gap 13, Blood Urea Nitrogen 31H, Creatinine 0.93, Estimat Glomerular Filtration Rate 59, BUN/Creatinine Ratio 33, Glucose Level 176H, Calcium Level 9.9, Corrected Calcium 10.1, Total Bilirubin 0.2, Aspartate Amino Transf (AST/SGOT) 26, Alanine Aminotransferase (ALT/SGPT) 30, Alkaline Phosphatase 182H, Total Protein 7.4, Albumin 3.8 01/18/19 20:40: Glucometer 252H Assessment/Plan Assessment/Plan Assessment/Plan Right foot Cellulitis Hx of PVD Dementia DM Plan is to monitor right foot, currenly in soft boot for heel protection (would continue that). Pt is getting a work-up to recheck her PVD and may need an X- ray to make sure she does not have Osteomyelitis. Treat cellulitis with elevation, ABX and good local care. I will check with family and her primary physician to make sure the heel ulcer is not new and not getting worse. Clinical Quality Measures DVT/VTE Risk/Contraindication: Risk Factor Score Per Nursin RFS Level Per Nursing on Admit: 4+=Very High SHY MARIO DO Jan 18, 2019 21:40
[2019-01-18] MEDS: SERTRALINE 50 MG (ZOLOFT) TABLET PO SCH (22:39)
[2019-01-18] MEDS: SENNA W/DOCUSATE (SENOKOT S) TABLET PO SCH (22:40)
--- NOTE | 2019-01-18 22:48 | NUR ---
PATIENT AWAKE AND ALERT TO SELF. INCONTINENT OF URINE. BED CHANGED, GOWN CHANGED AND PATIENT CLEANED UP. PATIENT STATES FOOT IS SORE, GAVE PAIN MEDICATION ALONG WITH OTHER MEDICATIONS AT THIS TIME.
[2019-01-19] VITALS (8 sets, daily range): BP systolic 147–187; BP diastolic 64–85
[2019-01-19] MEDS: CEFEPIME INJECTION 1,000 MG in WATER (STERILE) FOR INJECTION 10 ML IV SCH ×3 (02:04→17:13)
[2019-01-19] MEDS: NS IV 1000 ML 1,000 ML IV SCH ×3 (04:37→20:20)
[2019-01-19] MEDS: HALOPERIDOL 5 MG/ML (HALDOL) AMP IM PRN ×2 (04:43→18:45)
[2019-01-19] MEDS: fentaNYL INJECTION 100 MCG/2 ML AMP IVP PRN ×5 (05:02→17:17)
[2019-01-19] MEDS: HYDROcodone/APAP 5 MG/325 MG (LORTAB) TAB PO PRN ×3 (06:22→16:37)
[2019-01-19 06:40] LABS: BASOPHILS # (AUTO) 0.1 10^3/uL (0.0-0.1); BASOPHILS % (AUTO) 1 % (0-10); EOSINOPHILS # (AUTO) 0.3 10^3/uL (0.0-0.3); EOSINOPHILS % (AUTO) 3 % (0-10); HEMATOCRIT 34 % (35-52); HEMOGLOBIN 10.6 G/DL (11.5-16.0); LYMPHOCYTES # (AUTO) 1.9 X 10^3 (1.0-4.0); LYMPHOCYTES % (AUTO) 24 % (12-44); MEAN CORPUSCULAR HEMOGLOBIN 28 PG (25-34); MEAN CORPUSCULAR HGB CONC 31 G/DL (32-36); MEAN CORPUSCULAR VOLUME 89 FL (80-99); MEAN PLATELET VOLUME 12.7 FL (7.4-10.4); MONOCYTES # (AUTO) 0.7 X 10^3 (0.0-1.0); MONOCYTES % (AUTO) 8 % (0-12); NEUTROPHILS # (AUTO) 5.1 X 10^3 (1.8-7.8); NEUTROPHILS % (AUTO) 64 % (42-75); PLATELET COUNT 210 10^3/uL (130-400); RED CELL DISTRIBUTION WIDTH 14.1 % (10.0-14.5); WHITE BLOOD COUNT 7.9 10^3/uL (4.3-11.0)
[2019-01-19 07:01] LABS: ALANINE AMINOTRANSFERASE 21 U/L (0-55); ALBUMIN 3.2 GM/DL (3.2-4.5); ALKALINE PHOSPHATASE 175 U/L (40-136); BUN/CREATININE RATIO 30; CALCIUM 8.8 MG/DL (8.5-10.1); CARBON DIOXIDE 21 MMOL/L (21-32); CHLORIDE 107 MMOL/L (98-107); CREATININE SERUM 0.88 MG/DL (0.60-1.30); GFR ESTIMATED > 60; POTASSIUM 3.9 MMOL/L (3.6-5.0); SODIUM 139 MMOL/L (135-145); TOTAL PROTEIN 6.1 GM/DL (6.4-8.2)
[2019-01-19 07:06] LABS: GLUCOSE 418 MG/DL (70-105)
[2019-01-19 07:18] LABS: BILIRUBIN,TOTAL < 0.5 MG/DL (0.1-1.0)
[2019-01-19] MEDS: inSUlin ASPART (NovoLOG) 1 UNIT/0.01 ML (CHARGE PER UNIT) SC SCH ×3 (07:32→16:34)
[2019-01-19] MEDS: SENNA W/DOCUSATE (SENOKOT S) TABLET PO SCH (08:25)
[2019-01-19] MEDS ORDERED: GABA-488 PO (09:07)
[2019-01-19] MEDS ORDERED: MELA3TAB PO (09:07)
[2019-01-19] MEDS ORDERED: CARB10DR OU (09:07)
[2019-01-19] MEDS ORDERED: ACET325T38 PO (09:07)
[2019-01-19] MEDS ORDERED: METH1ADH5 TP (09:07)
[2019-01-19] MEDS ORDERED: COLL30OI TP (09:07)
[2019-01-19] MEDS ORDERED: INSU100I14 SQ (09:07)
[2019-01-19] MEDS ORDERED: SENN-40 PO (09:07)
[2019-01-19] MEDS ORDERED: HYDR-3816 PO (09:07)
[2019-01-19] MEDS ORDERED: EYEL1MED TOP (09:07)
[2019-01-19] MEDS ORDERED: CEFE2VIA5 IV (09:07)
[2019-01-19] MEDS ORDERED: DEXT33GE7 PO (09:07)
[2019-01-19] MEDS ORDERED: SIMV40TA4 PO (09:07)
--- NOTE | 2019-01-19 09:10 | NUR ---
UPDATED MED REC WITH ORDER SUMMARY REPORT FROM Solar TitanLUBAN CHÁVEZ.
--- NOTE | 2019-01-19 10:06 | Progress Note - Surgery ---
ÁNGELA MOJICA [facility] 01/19/19 1006: Subjective Date Seen by a Provider: Jan 19, 2019 Time Seen by a Provider: 07:30 Subjective/Events-last exam Patient was difficult to understand and I had trouble communicating with the patient. Patient said she did not feel good but was not specific as to what was not feeling good. WBC is 7.9. Review of Systems Could not receive any information. Objective Exam Vital Signs Date Time Temp Pulse Resp B/P (MAP) Pulse Ox O2 Delivery O2 Flow Rate FiO2 01/19/19 08:00 36.8 100 20 161/72 (101) 94 Room Air 01/19/19 04:45 36.3 98 18 178/79 (112) 98 Room Air 01/19/19 00:24 36.3 98 18 178/79 (112) 98 Room Air 01/19/19 00:19 36.0 98 18 178/79 (112) 96 Room Air 01/18/19 20:25 36.2 93 18 170/73 (105) 97 Room Air 01/18/19 20:00 97 Room Air 01/18/19 19:33 Room Air I & O 01/19/19 07:00 Intake Total 372 ml Balance 372 ml Capillary Refill : General Appearance: No Apparent Distress Respiratory: No Accessory Muscle Use, No Respiratory Distress Cardiovascular: Regular Rate, Rhythm Peripheral Pulses: 2+ Radial Pulses (R), 2+ Radial Pulses (L) Extremity: Other (Very little inflammation in the right LE. TTP over the Left anterior Tibia. ) Neurologic/Psychiatric: Alert Results Lab Laboratory Tests 01/18/19 17:35: White Blood Count 7.7, Red Blood Count 4.13L, Hemoglobin 11.3L, Hematocrit 37, Mean Corpuscular Volume 89, Mean Corpuscular Hemoglobin 27, Mean Corpuscular Hemoglobin Concent 31L, Red Cell Distribution Width 14.4, Platelet Count 264, Mean Platelet Volume 12.2H, Neutrophils (%) (Auto) 53, Lymphocytes (%) (Auto) 33, Monocytes (%) (Auto) 9, Eosinophils (%) (Auto) 4, Basophils (%) (Auto) 1, Neutrophils # (Auto) 4.1, Lymphocytes # (Auto) 2.5, Monocytes # (Auto) 0.7, Eosinophils # (Auto) 0.3, Basophils # (Auto) 0.1, Sodium Level 142, Potassium L evel 3.8, Chloride Level 104, Carbon Dioxide Level 25, Anion Gap 13, Blood Urea Nitrogen 31H, Creatinine 0.93, Estimat Glomerular Filtration Rate 59, BUN/Creatinine Ratio 33, Glucose Level 176H, Calcium Level 9.9, Corrected Calcium 10.1, Total Bilirubin 0.2, Aspartate Amino Transf (AST/SGOT) 26, Alanine Aminotransferase (ALT/SGPT) 30, Alkaline Phosphatase 182H, Total Protein 7.4, Albumin 3.8 01/18/19 20:40: Glucometer 252H 01/19/19 05:45: White Blood Count 7.9, Red Blood Count 3.84L, Hemoglobin 10.6L, Hematocrit 34L, Mean Corpuscular Volume 89, Mean Corpuscular Hemoglobin 28, Mean Corpuscular Hemoglobin Concent 31L, Red Cell Distribution Width 14.1, Platelet Count 210, Mean Platelet Volume 12.7H, Neutrophils (%) (Auto) 64, Lymphocytes (%) (Auto) 24, Monocytes (%) (Auto) 8, Eosinophils (%) (Auto) 3, Basophils (%) (Auto) 1, Neutrophils # (Auto) 5.1, Lymphocytes # (Auto) 1.9, Monocytes # (Auto) 0.7, Eosinophils # (Auto) 0.3, Basophils # (Auto) 0.1, Sodium Level 139, Potassium Level 3.9, Chloride Level 107, Carbon Dioxide Level 21, Anion Gap 11, Blood Urea Nitrogen 26H, Creatinine 0.88, Estimat Glomerular Filtration Rate > 60, BUN/Creatinine Ratio 30, Glucose Level 418*H, Calcium Level 8.8, Corrected Calcium 9.4, Total Bilirubin < 0.5, Aspartate Amino Transf (AST/SGOT) 21, Alanine Aminotransferase (ALT/SGPT) 21, Alkaline Phosphatase 175H, Total Protein 6.1L, Albumin 3.2 Assessment/Plan Assessment/Plan Assessment/Plan Right foot Cellulitis Hx of PVD Dementia DM COntinue monitor of right foot. Continue antibiotics Clinical Quality Measures DVT/VTE Risk/Contraindication: Risk Factor Score Per Nursin RFS Level Per Nursing on Admit: 4+=Very High PHILLIP AMOS DO 01/19/191945: Subjective Time Seen by a Provider: 16:34 Subjective/Events-last exam Pt seen and examined, still not really answering questions today. Is hard of hearing, but even with me raising my voice she didn't answer questions. Review of Systems Pt unable to answer Objective Exam General Appearance: No Apparent Distress, Chronically ill Extremity: No Calf Tenderness, Other (right foot looks about the same as yesterday, maybe slightly less erythema) Assessment/Plan Assessment/Plan Assessment/Plan Pt is scheduled for arteriogram, will await that and may need to order X-ray. I don't think she has osteomyelitis, so will not order MRI at this time. Supervisory-Addendum Brief Verification & Attestation Participated in pt care: history, MDM, physical Personally performed: exam, history, MDM Care discussed with: Medical Student Procedures: n/a Verification and Attestation of Medical Student E/M Service A medical student performed and documented this service in my presence. I reviewed and verified all information documented by the medical student and made modifications to such information, when appropriate. I personally performed the physical exam and medical decision making. Phillip Amos, Jan 19, 2019,19:46 ÁNGELA MOJICA [facility] Jan 19, 2019 10:06 PHILLIP AMOS DO Jan 19, 2019 19:46
--- NOTE | 2019-01-19 10:06 | Diagnostic Imaging Report ---
INDICATION: Right leg pain, swelling. TECHNIQUE: Grayscale with color-flow and Doppler waveform evaluation of the right lower extremity deep venous system. CORRELATION STUDY: None FINDINGS: Color and grayscale sonographic images demonstrate no intraluminal defect within the visualized portion of the common femoral, superficial femoral and/or popliteal veins to suggest thrombus formation. These vessels demonstrate normal response to compression and augmentation. No soft tissue fluid collection. IMPRESSION: 1. Negative for deep venous thrombosis of the right leg. Dictated by: Dictated on workstation # [id number]
--- NOTE | 2019-01-19 10:45 | Diagnostic Imaging Report ---
PROCEDURE: US Bilateral lower extremity arterial. TECHNIQUE: Multiple real-time grayscale images are obtained through both lower extremity arterial systems with color Doppler imaging and color Doppler spectral analysis. INDICATION: Bilateral leg pain, foot pain. CORRELATION STUDY: None FINDINGS: There is abnormal appearance about the bilateral lower extremity arterial system. Where flow is demonstrated is diffusely dampened monophasic waveforms. On the right, there is elevated velocity with flow in the common femoral artery into the proximal aspects superficial femoral artery. However, no flow was able to be detected within the mid and distal aspect of the superficial femoral artery. There does appear to be some minimal flow in the popliteal artery. However, no appreciable flow noted below the tibial peroneal trifurcation with absence of flow at the level of the ankle. On the left, there is elevated velocity left common femoral artery suggesting likely narrowing. There is patency but elevated flow within the deep femoral artery as well as the proximal superficial femoral artery becoming diminished flow in the mid aspect. There is flow distally within the superficial femoral artery and elevated velocities in the popliteal artery. There is some scattered areas of vascular flow below the tibial peroneal trifurcation. However there is absence of flow in the posterior tibial artery. IMPRESSION: 1. Rather markedly abnormal bilateral lower extremity arterial duplex Doppler assessment. 2. On the right, there is essentially absence of flow from the level of the proximal superficial femoral artery through the remainder of the leg. 3. On the left, likely stenosis more proximally at the common femoral and proximal superficial femoral artery. There is rather significant small vessel disease below the tibial peroneal trifurcation with diminished and areas of absence of flow present at the level of the ankle. Dictated by: Dictated on workstation # [id number]
[2019-01-19] MEDS: VANCOMYCIN 1250 MG/NS 250 ML IVPB IV SCH ×2 (12:20)
--- NOTE | 2019-01-19 12:56 | Consultation-Cardiology ---
HPI-Cardiology Cardiology Consultation: Date of Consultation 01/19/19 Date of Admission Attending Physician Dulce Velarde DO Admitting Physician Macy,Local Physician Consulting Physician Zeke APARICIO MD HPI: Time Seen by a Provider: 12:56 Chief Complaint: Nonhealing right foot ulcer This is a 73-year-old lady with dementia. She has previous history of diabetes, PVD with vascular intervention done by Dr. Del Angel in [place]. She presents with right foot cellulitis and nonhealing ulcer. Patient is a poor historian however is not complaining of any significant cardiac or foot discomfort. She denies any other complains as well. History is primarily taken from the nurse and the data in the chart. Review of Systems-Cardiology Review of Systems Constitutional: As described under HPI; No As described under HPI, No no symptoms reported, No chills, No fever, No lightheadedness Eyes: No As described under HPI, No no symptoms reported, No blindness, No blurred vision, No contact lenses, No drainage, No decreased acuity, No foreign body sensation, No pain, No vision change Ears/Nose/Throat: No As described under HPI, No no symptoms reported, No chronic hearing loss, No ear discharge, No ear pain, No nasal drainage, No ulcerations Respiratory: No no symptoms reported; As described under HPI; No As described under HPI, No cough, No orthopnea, No shortness of breath, No SOB with excertion Cardiovascular: No no symptoms reported; As described under HPI; No As described under HPI, No chest pain, No edema, No irregular heart rate, No lightheadedness, No palpitations Gastrointestinal: No no symptoms reported, No As described under HPI, No abdomen distended, No abdominal pain, No blood streaked bowels, No constipation, No diarrhea, No nausea, No vomiting, No stool coloration changes Genitourinary: No As described under HPI, No burning, No dysuria, No discharge, No frequency, No flank pain, No hematuria, No urgency : Yes : No Skin: No rash, No skin related problems, No ulcerations Psychiatric/Neurological: No anxiety, No depression, No seizure, No focal weakness, No syncope Hematologic: No bleeding abnormalities [place]-Hywjyy-Izltav Hx Patient Social History Alcohol Use: Denies Use Recreational Drug Use: No Smoking Status: Never a Smoker Recent Foreign Travel: No Recent Infectious Disease Expo: No Hospitalization with Isolation: Denies Physical Abuse Screen: No Sexual Abuse: No Immunizations Up To Date Date of Pneumonia Vaccine: Sep 10, 2016 Past Medical History PMH As described under Assessment. Family Medical History Family History: Cardiovascular disease 19 FATHER Diabetes mellitus 19 FATHER Headache disorder 19 MOTHER Allergies and Home Medications Allergies Coded Allergies: hydromorphone (Verified Allergy, Severe, 01/18/19) MAKES HER " CRAZY" PER HER amoxicillin (Verified Allergy, Mild, 01/18/19) HUSBNAD STATES " SHE CANNOT SLEEP" morphine (Verified Allergy, Mild, 01/18/19) MAKES HER "CRAZY" PER HER Home Medications Acetaminophen 325 Mg Tablet, 325 MG PO Q6H PRN for PAIN-MILD, (Reported) Aspirin 81 Mg Tablet.dr, 81 MG PO DAILY, (Reported) Carboxymethyl/Glycerin/Poly80 10 Ml Drops, 1 DROP OU QID, (Reported) Cefepime HCl 2 Gm Vial, 2 GM IV DAILY, (Reported) START DATE 01-15-19 END DATE 01-25-19 Clopidogrel Bisulfate 75 Mg Tablet, 75 MG PO DAILY, (Reported) Collagenase 30 Gm Oint..gm., TP DAILY, (Reported) APPLY TO RIGHT 4TH TOE Dextrose 33 Gm Gel.packet, 33 GM PO UD PRN for BLOOD SUGAR <70, (Reported) Eyelid Cleanser Combination #5 1 Each Med..pad, 1 EACH TOP MoFr, (Reported) APPLY TO EACH EYE TOPICALLY Furosemide 40 Mg Tablet, 40 MG PO DAILY, (Reported) Gabapentin 300 Mg Capsule, 300 MG PO TID, (Reported) Hydrocodone/Acetaminophen 1 Each Tablet, 1 TAB PO Q4H PRN for PAIN-MODERATE, (Reported) Insulin Aspart 300 Units/3 Ml Solution, SQ TID, (Reported) 0-99 = 0 100-199 = 4 UNITS 200-299 = 5 UNITS 300-399 = 6 UNITS 400-499 = 7 UNITS 500-599 = 8 UNITS >600 CALL PCP Insulin Glargine,Hum.rec.anlog 100 Unit/1 Ml Vial, 7 UNITS SC BID, (Reported) Levothyroxine Sodium 112 Mcg Tablet, 112 MCG PO DAILY, (Reported) Melatonin 3 Mg Tablet, 3 MG PO HS PRN for SLEEP, (Reported) Methyl Salicylate/Menthol 1 Each Adh..patch, 1 PATCH TP DAILY, (Reported) APPLY TO RIGHT FOOT Sennosides/Docusate Sodium 1 Each Tablet, 1 TAB PO Q12H PRN for CONSTIPATION-6TH LINE, (Reported) Simvastatin 40 Mg Tablet, 40 MG PO DAILY, (Reported) Patient Home Medication List Home Medication List Reviewed: Yes Physical Exam-Cardiology Physical Exam Vital Signs/I&O 01/19/19 01/19/19 01/19/19 04:45 08:00 08:00 Temp 36.3 36.8 Pulse 98 100 Resp 18 20 B/P (MAP) 178/79 (112) 161/72 (101) Pulse Ox 98 94 O2 Delivery Room Air Room Air Room Air 01/19/19 00:00 Intake Total 322 ml Balance 322 ml Capillary Refill : Constitutional: appears stated age; No apparent distress; well-developed, well- nourished HEENT: PERRL; No discharge; hearing is well preserved, oral hygience is good; No ulceration, No xanthelasmas are seen Neck: No carotid bruit; carotid pulses are 2 + bilaterally Respiratory: chest is bilaterally symmetric, lungs clear to auscultation Cardiovascular: regular rate-rhythm, S1 and S2, systolic murmur Gastrointestinal: soft, audible bowel sounds; No spleenomegaly Rectal: deferred Extremities: normal range of motion, non-tender, normal inspection; No clubbing, No cyanosis; no lower extremity edema bilateral; No significant edema Neurologic/Psychiatric: alert, normal mood/affect Skin: normal color, warm/dry; No rash, No ulcerations; ulcerations on exposed areas Lymphatic: no adenopathy (neck, axilla or groin) Data Review Labs Laboratory Tests 01/18/19 17:35: White Blood Count 7.7, Red Blood Count 4.13L, Hemoglobin 11.3L, Hematocrit 37, Mean Corpuscular Volume 89, Mean Corpuscular Hemoglobin 27, Mean Corpuscular Hemoglobin Concent 31L, Red Cell Distribution Width 14.4, Platelet Count 264, Mean Platelet Volume 12.2H, Neutrophils (%) (Auto) 53, Lymphocytes (%) (Auto) 33, Monocytes (%) (Auto) 9, Eosinophils (%) (Auto) 4, Basophils (%) (Auto) 1, Neutrophils # (Auto) 4.1, Lymphocytes # (Auto) 2.5, Monocytes # (Auto) 0.7, Eosinophils # (Auto) 0.3, Basophils # (Auto) 0.1, Sodium Level 142, Potassium Level 3.8, Chloride Level 104, Carbon Dioxide Level 25, Anion Gap 13, Blood Urea Nitrogen 31H, Creatinine 0.93, Estimat Glomerular Filtration Rate 59, BUN/Creatinine Ratio 33, Glucose Level 176H, Calcium Level 9.9, Corrected Calcium 10.1, Total Bilirubin 0.2, Aspartate Amino Transf (AST/SGOT) 26, Alanine Aminotransferase (ALT/SGPT) 30, Alkaline Phosphatase 182H, Total Protein 7.4, Albumin 3.8 01/18/19 20:40: Glucometer 252H 01/19/19 05:45: White Blood Count 7.9, Red Blood Count 3.84L, Hemoglobin 10.6L, Hematocrit 34L, Mean Corpuscular Volume 89, Mean Corpuscular Hemoglobin 28, Mean Corpuscular Hemoglobin Concent 31L, Red Cell Distribution Width 14.1, Platelet Count 210, Mean Platelet Volume 12.7H, Neutrophils (%) (Auto) 64, Lymphocytes (%) (Auto) 24, Monocytes (%) (Auto) 8, Eosinophils (%) (Auto) 3, Basophils (%) (Auto) 1, Neutrophils # (Auto) 5.1, Lymphocytes # (Auto) 1.9, Monocytes # (Auto) 0.7, E osinophils # (Auto) 0.3, Basophils # (Auto) 0.1, Sodium Level 139, Potassium Level 3.9, Chloride Level 107, Carbon Dioxide Level 21, Anion Gap 11, Blood Urea Nitrogen 26H, Creatinine 0.88, Estimat Glomerular Filtration Rate > 60, BUN/C reatinine Ratio 30, Glucose Level 418*H, Calcium Level 8.8, Corrected Calcium 9.4, Total Bilirubin < 0.5, Aspartate Amino Transf (AST/SGOT) 21, Alanine Aminotransferase (ALT/SGPT) 21, Alkaline Phosphatase 175H, Total Protein 6.1L, Albumin 3.2 01/19/19 12:05: Glucometer 323H A/P-Cardiology Assessment/Admission Diagnosis Critical limb ischemia, Systolic murmur, Right foot cellulitis. Plan Critical limb ischemia, arterial ultrasound shows significant disease in the distal right SFA and possibility of no flow below the right knee. Severe disease in the left lower extremity as well. We will plan for peripheral angiogram and intervention tomorrow for critical limb ischemia and nonhealing ulcer. Restart the patient on aspirin and Plavix. IV heparin. Get old records from [facility]. Systolic murmur, echocardiogram. Right foot cellulitis. IV antibiotics, deferred to Dr. Velarde and Dr. Amos. Thank you for your consultation. Please call me if you have any questions. William Aparicio MD, FACP, FACC, FSCAI, FHRS, CCDS Interventional Cardiology Cardiac Electrophysiology Vascular Medicine and Endovascular Interventions Clinical Quality Measures DVT/VTE Risk/Contraindication: Risk Factor Score Per Nursin RFS Level Per Nursing on Admit: 4+=Very High Zeke APARICIO MD Jan 19, 2019 12:56
[2019-01-19] MEDS ORDERED: ASPIRIN 81 MG CHEW (CHILDREN'S ASA) PO SCH (14:00)
[2019-01-19] MEDS ORDERED: CLOPIDOGREL 75 MG (PLAVIX) TABLET PO SCH (14:00)
--- NOTE | 2019-01-19 14:10 | History & Physical-Hospitalist ---
[facility] 01/19/19 1409: History of Present Illness HPI/Chief Complaint CC: Cellulitis R foot HPI: Pt is pleasant but unable to communicate very well do to hearing loss and dementia. She is a poor historian and relies on her for her history. She is highly confused as to where she is at and why she is currently here. She was seen in clinic yesterday with her who stated that her wound had recently started looking worse after having some prior improvement. She has been living in a senior living due to dementia and a wound on her right foot associated with intense pain making her unable to walk and wheelchair bound. She had previously had wound care monitoring her foot. She has a history of poorly controlled type 1 diabetes with vascular complications of her lower extremities. She has had prior intervention done on the vasculature of her lower limbs.Her also states that the senior living had not been giving her antidepressant Sertraline and states she has been more depressed due to this medication missing. She currently has intense pain with movement of her foot at all. The right foot has significant erythema and swelling concentrated around her wound between her 4th and 5th toe with spread across the dorsal aspect of her foot. Due to being a poor historian and difficult hearing or understanding questions obtaining a review of systems was difficult, but she did state she had the chills a headache and was itchy. Source: patient, spouse Exam Limitations: physical impairment (Difficult hearing), other (Dementia) Date Seen 01/19/19 Attending Physician Dulce Galvez DO PCP No,Local Physician Referring Physician Date of Admission Jan 18, 2019 at 17:05 Home Medications & Allergies Home Medications Reviewed patient Home Medication Reconciliation performed by pharmacy medication reconciliations electronic prepress technician and/or nursing. Patients Allergies have been reviewed. Allergies Allergies Coded Allergies hydromorphone (Verified Allergy, Severe, 01/18/19) MAKES HER " CRAZY" PER HER amoxicillin (Verified Allergy, Mild, 01/18/19) HUSBNAD STATES " SHE CANNOT SLEEP" morphine (Verified Allergy, Mild, 01/18/19) MAKES HER "CRAZY" PER HER Past Qivhubw-Bekesm-Uixmon Hx Patient Social History Marrital Status: Alcohol Use: Denies Use Recreational Drug Use: No Smoking Status: Never a Smoker Physical Abuse Screen: No Sexual Abuse: No Recent Foreign Travel: No Contact w/other who traveled: No Recent Hopitalizations: No Recent Infectious Disease Expo: No Immunizations Up To Date Pediatric: No Date of Pneumonia Vaccine: Sep 10, 2016 Seasonal Allergies Seasonal Allergies: Yes Past Medical History Surgeries: Orthopedic, Vascular Surgery 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 Currently Using CPAP: No Currently Using BIPAP: No Cardiac: Coronary Artery Disease, High Cholesterol, Hypertension, Peripheral Vascular Neurological: Dementia, Neuropathy, Stroke, TIA : No Genitourinary: Bladder Infection Musculoskeletal: Foot Drop, Spasms Endocrine: Diabetes, Insulin dep, Hypothyroidsim Are Your Blood Sugars Over 250: Yes Hearing Impairment: Hard of Hearing Psychosocial: Depression History of Blood Disorders: No Family History Cardiovascular disease 19 FATHER Diabetes mellitus 19 FATHER Headache disorder 19 MOTHER Heart Disease, Diabetes, Migraines Review of Systems Constitutional: chills; No fever EENTM: see HPI Respiratory: see HPI Cardiovascular: see HPI Gastrointestinal: see HPI Skin: no symptoms reported Psychiatric/Neurological: Depressed, Other (Dementia) Physical Exam Physical Exam Vital Signs Vital Signs - First Documented 01/18/19 01/18/19 01/18/19 19:33 20:00 20:25 Temp 36.2 Pulse 93 Resp 18 B/P (MAP) 170/73 (105) Pulse Ox 97 O2 Delivery Room Air Capillary Refill : Height, Weight, BMI Height: 5'2.00" Weight: 156lbs. 1.4oz. 70.081787pd; 28.2 BMI Method: General Appearance: WD/WN, Moderate Distress Neck: Full Range of Motion, Normal Inspection Respiratory: Chest Non Tender, Lungs Clear, No Accessory Muscle Use, No Respiratory Distress, Inspiration, Wheezing (Bilateral lower lobes) Cardiovascular: Regular Rate, Rhythm, No Gallop, No JVD; No Normal Peripheral Pulses (Bilateral posterior tibial 1/4); Systolic Murmur Extremity: Calf Tenderness (Bilateral), Swelling (Right foot), Other (Significant tenderness on right lower extremity) Neurologic/Psychiatric: No Alert (Drowsiness, Confusion); Oriented x3, No Motor/Sensory Deficits; No Normal Mood/Affect; Disoriented, Other (Dementia, ) Skin: Erythema (Right foot), Other (Lesion between right 4th and 5th toes) Results Results/Procedures Labs Laboratory Tests 01/18/19 17:35 01/19/19 05:45 Patient resulted labs reviewed. Assessment/Plan Assessment and Plan Assessment: Cellulitis Type 1 Diabetes Dementia Depression PVD Plan: Consult surgery for wound Consult Cardiology for vascular evaluation Arterial-Venous Doppler Study lower extremities Manage diabetes with long acting insulin and insulin sliding scale Manage depression and dementia Clinical Quality Measures DVT/VTE Risk/Contraindication: Risk Factor Score Per Nursin RFS Level Per Nursing on Admit: 4+=Very High DULCE GALVEZ DO 01/19/19 2008: History of Present Illness HPI/Chief Complaint CC: Right leg cellulitis recurrent type failed antibiotics outpatient HPI: This is a 73yoWF who is very complex given the fact of type 1 DM for many years brittle status managed by Dr. Willis endocrinology who presented as a direct admit from my clinic from the senior living for worsening right foot cellulitis. The wound itself that had been present for the last 6 weeks had actually looked good and clean and had been taken care of appropriately but edema and erythema had just started in the foot indicating the Cefepime they just started for the wound infection as failing the pt so she was placed on Vancomycin and Cefepime empirically, arterial ultrasound obtained revealing no circulation to the foot after recent intervention by Dr. Barraza approximately twelve weeks ago and I did actually review that report when she was hospitalized inpatient rehab and senior behavioral unit.At this current time we will check MRI for osteomyelitis and limited bone scan and restart her home medications and place the picc line because she does have poor IV access. I have also asked Dr. Amos consultation for the wound and Dr. Aparicio will perform angiogram and possible angioplasty. Source: patient, RN/MD, old records Exam Limitations: other (Dementia) Time Seen by a Provider: 09:00 Past Phlrqmh-Zaqwwh-Zbbyrv Hx Past Med/Social Hx: Reviewed Nursing Past Med/Soc Hx, Reviewed and Corrections made Patient Social History Marrital Status: Employed/Student: retired Smoking Status: Never a Smoker Past Medical History Surgeries: Orthopedic, Vascular Surgery Family History Cardiovascular disease 19 FATHER Diabetes mellitus 19 FATHER Headache disorder 19 MOTHER Review of Systems Constitutional: see HPI Musculoskeletal: other (feet pain) Psychiatric/Neurological: Depressed, Emotional Problems Physical Exam Physical Exam General Appearance: No Apparent Distress, WD/WN, Chronically ill Respiratory: Lungs Clear Cardiovascular: Regular Rate, Rhythm Extremity: Swelling (Right foot), Other (Significant tenderness on right lower extremity) Neurologic/Psychiatric: Disoriented Assessment/Plan Admission Diagnosis Assessment: Right foot cellulitis failed outpatient abx Severe PVD arterial USG revealed minimal blood supply to the right foot Type 1 DM brittle DKA/Hypoglycemia multiple episodes CVA CAD Depression Dementia Plan: Fall risk Angiogram tomorrow Abx Wound care Admission Status: Inpatient Order (span 2 midnights) Reason for Inpatient Admission: Failed outpatient abx now with arterial USG revealing minimal blood supply to the right foot Diagnosis/Problems Diagnosis/Problems (1) Cellulitis of right foot (2) Toe ulcer due to DM Status: Acute (3) PVD (peripheral vascular disease) Status: Chronic (4) Anxiety (5) Depression (6) NPH (normal pressure hydrocephalus) (7) Hypothyroidism (8) Hypertension (9) Falls frequently (10) CVA (cerebral vascular accident) (11) Memory deficit (12) Myocardial infarct, old (13) Presbycusis of both ears (14) Diabetes mellitus, insulin dependent (IDDM), controlled (15) Autonomic dysfunction with type 2 diabetes mellitus Supervisory-Addendum Brief Verification & Attestation Participated in pt care: history, MDM, physical Personally performed: exam, history, MDM, supervision of care Care discussed with: Medical Student Procedures: n/a Results interpretation: Verified all documentation Verification and Attestation of Medical Student E/M Service A medical student performed and documented this service in my presence. I reviewed and verified all information documented by the medical student and made modifications to such information, when appropriate. I personally performed the physical exam and medical decision making. Dulce Galvez, Jan 19, 2019,20:08 [facility] Jan 19, 2019 14:09 DULCE GALVEZ DO Jan 19, 2019 20:08
--- NOTE | 2019-01-19 14:20 | Diagnostic Imaging Report ---
INDICATION: PICC line placement. TIME OF EXAM: 1:54 p.m. COMPARISON: No prior studies are available for comparison. FINDINGS: Right upper extremity PICC line passes into the SVC; however, the distal aspect of the PICC line is coiled back upon itself with tip directed retrograde in the SVC. This should be repositioned. The length of the portion that is curled back is approximately 3 cm. No pneumothorax is identified. Shunt tubing overlies the hemithoraces bilaterally. Lungs are clear. IMPRESSION: Malpositioned right upper extremity PICC line, as described. Dictated by: Dictated on workstation # [id number]
--- NOTE | 2019-01-19 14:38 | Diagnostic Imaging Report ---
INDICATION: Open sores between the fourth and fifth toes of the right foot. TECHNIQUE: Patient was administered 26.8 mCi technetium 99m MDP intravenously and dynamic blood flow, blood pool and delayed imaging over bilateral feet and ankles was performed. FINDINGS: Dynamic blood flow images does show asymmetric mildly increased blood flow to the left foot, mid and anterior aspect. Flow at the ankles appears to be fairly symmetric. Blood pool image shows some slight increased uptake in the region of the fourth and fifth toe on the right, near the area of the patient's sores. However, no definite delayed activity is seen. IMPRESSION: No three-phase bone scan findings to suggest osteomyelitis. There is some mild increased blood flow to the left foot, nonspecific. There is some blood pool soft tissue uptake in the region of the right fourth and fifth toes which could indicate some cellulitis versus soft tissue infection. No osteomyelitis is seen. Dictated by: Dictated on workstation # [id number]
--- NOTE | 2019-01-19 15:26 | Diagnostic Imaging Report ---
INDICATION: PICC line placement. EXAMINATION: Portable chest at 3:03 PM. FINDINGS: The right upper extremity PICC line tip projects over the SVC. The tip is at cavoatrial junction. The heart size and pulmonary vascularity are normal. The lungs are clear. There are no effusions or pneumothoraces. There appears to be AEROSPACE PROJECT ENGINEER shunt tubing passing down the chest from the neck bilaterally. IMPRESSION: The right upper extremity PICC line tip appears to be at the cavoatrial junction. Dictated by: Dictated on workstation # [id number]
--- NOTE | 2019-01-19 15:48 | NUR ---
Pastoral care visit.
[2019-01-19] MEDS: ENOXAPARIN 40 MG/0.4 ML (LOVENOX) SYR SC SCH (17:12)
--- NOTE | 2019-01-19 19:26 | NUR ---
FOUND PT. WITH PICC LINE PULLED OUT. MEASURED PICC LINE SEE PICC LINE IV ASSESSMENT.
[2019-01-19] MEDS ORDERED: ACETAMINOPHEN 325 MG TABLET PO PRN (20:15)
[2019-01-19] MEDS ORDERED: MELATONIN 3 MG TABLET PO PRN (21:00)
[2019-01-19] MEDS ORDERED: SENNA W/DOCUSATE (SENOKOT S) TABLET PO PRN (21:00)
[2019-01-19] MEDS: ARTIFICAL TEARS 0.4 ML UNIT DOSE (REFRESH PLUS) OU SCH (22:00)
[2019-01-19] MEDS: SERTRALINE 50 MG (ZOLOFT) TABLET PO SCH (22:00)
[2019-01-19] MEDS: GABAPENTIN 300 MG (NEURONTIN) CAP PO SCH (22:00)
[2019-01-20] VITALS (7 sets, daily range): BP systolic 129–182; BP diastolic 60–78
[2019-01-20] MEDS: fentaNYL INJECTION 100 MCG/2 ML AMP IVP PRN ×4 (00:42→15:58)
[2019-01-20] MEDS: CEFEPIME INJECTION 1,000 MG in WATER (STERILE) FOR INJECTION 10 ML IV SCH ×3 (05:38→17:23)
[2019-01-20 06:32] LABS: BASOPHILS % (AUTO) 0 % (0-10); EOSINOPHILS # (AUTO) 0.1 10^3/uL (0.0-0.3); EOSINOPHILS % (AUTO) 2 % (0-10); HEMATOCRIT 31 % (35-52); HEMOGLOBIN 9.6 G/DL (11.5-16.0); LYMPHOCYTES # (AUTO) 1.9 X 10^3 (1.0-4.0); LYMPHOCYTES % (AUTO) 20 % (12-44); MEAN CORPUSCULAR HEMOGLOBIN 27 PG (25-34); MEAN CORPUSCULAR HGB CONC 31 G/DL (32-36); MEAN CORPUSCULAR VOLUME 88 FL (80-99); MEAN PLATELET VOLUME 12.3 FL (7.4-10.4); MONOCYTES # (AUTO) 0.8 X 10^3 (0.0-1.0); MONOCYTES % (AUTO) 9 % (0-12); NEUTROPHILS # (AUTO) 6.3 X 10^3 (1.8-7.8); NEUTROPHILS % (AUTO) 69 % (42-75); PLATELET COUNT 209 10^3/uL (130-400); RED CELL DISTRIBUTION WIDTH 14.2 % (10.0-14.5); WHITE BLOOD COUNT 9.1 10^3/uL (4.3-11.0)
[2019-01-20 06:48] LABS: BUN/CREATININE RATIO 21; CARBON DIOXIDE 21 MMOL/L (21-32); CHLORIDE 109 MMOL/L (98-107); CREATININE SERUM 0.78 MG/DL (0.60-1.30); POTASSIUM 3.4 MMOL/L (3.6-5.0); SODIUM 142 MMOL/L (135-145)
[2019-01-20 06:49] LABS: ALANINE AMINOTRANSFERASE 14 U/L (0-55); ALKALINE PHOSPHATASE 131 U/L (40-136); BILIRUBIN,TOTAL 0.2 MG/DL (0.1-1.0); CALCIUM 8.7 MG/DL (8.5-10.1); GFR ESTIMATED > 60; GLUCOSE 255 MG/DL (70-105); TOTAL PROTEIN 5.8 GM/DL (6.4-8.2)
[2019-01-20] MEDS: inSUlin ASPART (NovoLOG) 1 UNIT/0.01 ML (CHARGE PER UNIT) SC SCH ×3 (06:50→16:00)
[2019-01-20] MEDS: LEVOTHYROXINE 112 MCG (LEVOTHROID) TAB PO SCH (06:50)
[2019-01-20] MEDS: HALOPERIDOL 5 MG/ML (HALDOL) AMP IM PRN (07:27)
[2019-01-20 07:30] LABS: PROTHROMBIN TIME PATIENT 13.4 SEC (12.2-14.7)
[2019-01-20] MEDS ORDERED: HEParin (CATH LAB) 2,000 ML IV ONE (07:54)
[2019-01-20] MEDS ORDERED: LIDOCAINE 1% INJ 20 ML 20 ML VIAL ONE (07:54)
[2019-01-20] MEDS: HYDROcodone/APAP 7.5 MG/325 MG (LORTAB, LORCET PLUS) TABLET PO PRN ×3 (08:34→21:28)
[2019-01-20] MEDS: GABAPENTIN 300 MG (NEURONTIN) CAP PO SCH ×3 (08:39→21:28)
[2019-01-20] MEDS ORDERED: WATER (STERILE) FOR INJECTION 0 ML ONE (09:42)
[2019-01-20] MEDS ORDERED: MEROPENEM 500 MG VIAL (MERREM) IV ONE (09:42)
--- NOTE | 2019-01-20 11:04 | Progress Note - Hospitalist ---
HERI SPAULDING [facility] 01/20/19 1104: Subjective HPI/CC On Admission Date Seen by Provider: Jan 20, 2019 Time Seen by Provider: 08:04 CC: Right leg cellulitis recurrent type failed antibiotics outpatient HPI: This is a 73yoWF who is very complex given the fact of type 1 DM for many years brittle status managed by Dr. Willis endocrinology who presented as a direct admit from my clinic from the half-way for worsening right foot cellulitis. The wound itself that had been present for the last 6 weeks had a ctually looked good and clean and had been taken care of appropriately but edema and erythema had just started in the foot indicating the Cefepime they just started for the wound infection as failing the pt so she was placed on Vancomycin and Cefepime empirically, arterial ultrasound obtained revealing no circulation to the foot after recent intervention by Dr. Barraza approximately twelve weeks ago and I did actually review that report when she was hospitalized inpatient rehab and senior behavioral unit.At this current time we will check MRI for osteomyelitis and limited bone scan and restart her home medications and place the picc line because she does have poor IV access. I have also asked Dr. Amos consultation for the wound and Dr. Aparicio will perform angiogram and possible angioplasty. Review of Systems General: Chills HEENT: Head Aches Cardiovascular: No: Chest Pain Focused Exam Respiratory: Chest Non Tender, Lungs Clear, Normal Breath Sounds, No Accessory Muscle Use, No Respiratory Distress Cardiovascular: Regular Rate, Rhythm, No JVD; No Normal Peripheral Pulses; Systolic Murmur Peripheral Pulses: 0 Dorsalis Pedis (R), 0 Left Dors-Pedis (L); 2+ Radial Pulses (R), 2+ Radial Pulses (L) Skin: normal color, warm/dry Objective Exam Vital Signs Vital Signs Date Time Temp Pulse Resp B/P (MAP) Pulse Ox O2 Delivery O2 Flow Rate FiO2 01/20/19 09:02 36.8 89 20 134/62 (86) 92 Room Air Capillary Refill : General Appearance: WD/WN, Chronically ill, Moderate Distress Neck: Full Range of Motion, Normal Inspection Respiratory: Chest Non Tender, Lungs Clear, Normal Breath Sounds, No Accessory Muscle Use, No Respiratory Distress Cardiovascular: Regular Rate, Rhythm, No Edema, No JVD; No Normal Peripheral Pulses; Systolic Murmur Extremity: Calf Tenderness; No Pedal Edema Neurologic/Psychiatric: No Alert, No Oriented x3; Disoriented, Other Skin: Normal Color, Warm/Dry Results/Procedures Lab Laboratory Tests 01/20/19 06:00 Patient resulted labs reviewed. Assessment/Plan Assessment and Plan Assess & Plan/Chief Complaint Assessment: Cellulitis Type 1 Diabetes Dementia Depression PVD Plan: Consult surgery for wound Scheduled for vascular procedure today on right lower extremity by Dr Aparicio Echocardiogram for new murmur Manage diabetes with long acting insulin and insulin sliding scale Manage depression and dementia Pain management Clinical Quality Measures DVT/VTE Risk/Contraindication: Risk Factor Score Per Nursin RFS Level Per Nursing on Admit: 4+=Very High DULCE GALVEZ DO 01/20/192110: Subjective Subjective/Events-last exam Pt required Haldol and pain medication to sedate her since she had out of control behavior. To have angiogram today for the right lower extremity that had minimal flow on arterial ultrasound. Right foot actually responding due to the power of the antibiotic of Cefepime and Vancomycin, but needs circulatory system fixed before healing of the ulcer will occur. Wound itself looks okay. Blood sugar varied. Labs reviewed. Cardiac murmur, echocardiogram done, Dr. Aparicio is reviewing records from Dr. Barraza. Pt drowsy, opens her eyes but doesn't interact. Review of Systems General: Fatigue Musculoskeletal: leg pain Neurological: Confusion Objective Exam General Appearance: No Apparent Distress, WD/WN, Chronically ill Respiratory: Normal Breath Sounds Cardiovascular: Regular Rate, Rhythm Assessment/Plan Assessment and Plan Assess & Plan/Chief Complaint Angiogram Diagnosis/Problems Diagnosis/Problems (1) Cellulitis of right foot (2) CHEMICAL LABORATORY TESTER (ventriculoperitoneal) shunt status (3) Autonomic dysfunction with type 2 diabetes mellitus (4) Diabetes mellitus, insulin dependent (IDDM), controlled (5) Presbycusis of both ears (6) Toe ulcer due to DM Status: Acute (7) Myocardial infarct, old (8) Memory deficit (9) CVA (cerebral vascular accident) (10) Falls frequently (11) Hypertension (12) PVD (peripheral vascular disease) Status: Chronic (13) Hypothyroidism (14) NPH (normal pressure hydrocephalus) Supervisory-Addendum Brief Verification & Attestation Participated in pt care: history, MDM, physical Personally performed: exam, history, MDM, supervision of care Care discussed with: Medical Student Procedures: n/a Results interpretation: Verified all documentation Verification and Attestation of Medical Student E/M Service A medical student performed and documented this service in my presence. I reviewed and verified all information documented by the medical student and made modifications to such information, when appropriate. I personally performed the physical exam and medical decision making. Dulce Galvez, Jan 20, 2019,21:09 HERI SPAULDING [facility] Jan 20, 2019 11:04 DULCE GALVEZ DO Jan 20, 2019 21:11
[2019-01-20] MEDS: VANCOMYCIN 1250 MG/NS 250 ML IVPB IV SCH ×2 (11:20)
--- NOTE | 2019-01-20 11:46 | Progress Note - Surgery ---
[facility] 01/20/19 1146: Subjective Date Seen by a Provider: Jan 20, 2019 Time Seen by a Provider: 07:35 Subjective/Events-last exam Patient was asleep when I walked in to the room. Her Aid stated that She did not sleep well last night. I went to look at her right leg and she began to groan. Could not receive any other information. Right lower extremity appeared the same as yesterday. Review of Systems Could not receive any information. Objective Exam Vital Signs Date Time Temp Pulse Resp B/P (MAP) Pulse Ox O2 Delivery O2 Flow Rate FiO2 01/20/19 09:02 36.8 89 20 134/62 (86) 92 Room Air 01/20/19 08:59 36.8 89 20 134/62 (86) 92 Room Air 01/20/19 04:00 36.5 107 20 182/78 (112) 93 Room Air 01/20/19 00:00 36.7 103 20 176/74 (108) 93 Room Air 01/19/19 21:40 180/81 (114) 01/19/19 20:00 36.8 100 20 187/85 (119) 94 Room Air 01/19/19 15:54 36.5 98 20 180/81 (114) 97 Room Air 01/19/19 12:00 36.6 103 20 147/64 (91) 93 Room Air I & O 01/20/19 07:00 Intake Total 360 ml Balance 360 ml Capillary Refill : General Appearance: WD/WN, Moderate Distress Respiratory: No Accessory Muscle Use, No Respiratory Distress Neurologic/Psychiatric: No Alert, No Oriented x3; Disoriented Results Lab Laboratory Tests 01/19/19 12:05: Glucometer 323H 01/19/19 15:54: Glucometer 251H 01/20/19 06:00: White Blood Count 9.1, Red Blood Count 3.51L, Hemoglobin 9.6L, Hematocrit 31L, Mean Corpuscular Volume 88, Mean Corpuscular Hemoglobin 27, Mean Corpuscular Hemoglobin Concent 31L, Red Cell Distribution Width 14.2, Platelet Count 209, Mean Platelet Volume 12.3H, Neutrophils (%) (Auto) 69, Lymphocytes (%) (Auto) 20, Monocytes (%) (Auto) 9, Eosinophils (%) (Auto) 2, Basophils (%) (Auto) 0, Neutrophils # (Auto) 6.3, Lymphocytes # (Auto) 1.9, Monocytes # (Auto) 0.8, Eosinophils # (Auto) 0.1, Basophils # (Auto) 0.0, Prothrombin Time 13.4, INR Comment 1.0, Activated Partial Thromboplast Time 30, Sodium Level 142, Potassium Level 3.4L, Chloride Level 109H, Carbon Dioxide Level 21, Anion Gap 12, Blood Urea Nitrogen 16, Creatinine 0.78, Estimat Glomerular Filtration Rate > 60, BUN/Creatinine Ratio 21, Glucose Level 255H, Calcium Level 8.7, Corrected Calcium 9.5, Total Bilirubin 0.2, Aspartate Amino Transf (AST/SGOT) 15, Alanine Aminotransferase (ALT/SGPT) 14, Alkaline Phosphatase 131, Total Protein 5.8L, Albumin 3.0L 01/20/19 06:01: Glucometer 248H 01/20/19 11:14: Glucometer 120H Microbiology 01/18/19 Blood Culture - Preliminary, Resulted No growth Assessment/Plan Assessment/Plan Assessment/Plan Arteriogram will be done today Continue antibiotics Clinical Quality Measures DVT/VTE Risk/Contraindication: Risk Factor Score Per Nursin RFS Level Per Nursing on Admit: 4+=Very High PHILLIP AMOS DO 01/20/19 1207: Subjective Time Seen by a Provider: 11:20 Subjective/Events-last exam Pt seen and examined. No changes in mentation, aide sitting in room not really sure if she is complaining of leg pain. Objective Exam Extremity: Other (same as yesterday no changes) Assessment/Plan Assessment/Plan Assessment/Plan PVD Cellulitis Right foot Continue local wound care, soft boot for heel protection, await arteriogram. Supervisory-Addendum Brief Verification & Attestation Participated in pt care: history, MDM, physical Personally performed: exam, history, MDM Care discussed with: Medical Student Procedures: n/a Verification and Attestation of Medical Student E/M Service A medical student performed and documented this service in my presence. I rev iewed and verified all information documented by the medical student and made modifications to such information, when appropriate. I personally performed the physical exam and medical decision making. Phillip Amos, Jan 20, 2019,12:07 ÁNGELA MOJICA Jan 20, 2019 11:46 PHILLIP AMOS DO Jan 20, 2019 12:07
[2019-01-20] MEDS: ARTIFICAL TEARS 0.4 ML UNIT DOSE (REFRESH PLUS) OU SCH ×4 (13:00→21:29)
[2019-01-20] MEDS: NS IV 1000 ML 1,000 ML IV SCH ×2 (14:38→17:25)
[2019-01-20] MEDS: LIDOCAINE 4% (SALONPAS) PATCH TOP SCH (14:43)
[2019-01-20] MEDS: SIMvastatin 40 MG (ZOCOR) TAB PO SCH (14:43)
[2019-01-20] MEDS: CLOPIDOGREL 75 MG (PLAVIX) TABLET PO SCH (14:43)
[2019-01-20] MEDS: ASPIRIN E.C. 81 MG (ECOTRIN) TAB PO SCH (14:43)
--- NOTE | 2019-01-20 15:22 | Cardiology Progress Note ---
Cardiology SOAP Progress Note Subjective: No cardiac complaints. Objective: I&O/Vital Signs 01/20/19 01/20/19 01/20/19 01/20/19 04:00 08:59 09:02 12:32 Temp 36.5 36.8 36.8 36.4 Pulse 107 89 89 84 Resp 20 20 20 20 B/P (MAP) 182/78 (112) 134/62 (86) 134/62 (86) 129/60 (83) Pulse Ox 93 92 92 98 O2 Delivery Room Air Room Air Room Air Nasal Cannula O2 Flow Rate 2.00 01/20/19 00:00 Intake Total 360 ml Balance 360 ml Weight (Pounds): 156 Weight (Ounces): 1.4 Weight (Calculated Kilograms): [id number] Constitutional: appears stated age; No apparent distress; well-developed, well-nourished Respiratory: chest is bilaterally symmetric, lungs clear to auscultation Cardiovascular: regular rate-rhythm, S1 and S2, systolic murmur Gastrointestional: soft, audible bowel sounds; No spleenomegaly Extremities: normal range of motion, non-tender, normal inspection; No clubbing, No cyanosis; no lower extremity edema bilateral; No significant edema Neurologic/Psychiatric: alert, normal mood/affect Skin: normal color, warm/dry Results/Procedures: Labs Laboratory Tests 01/19/19 15:54: Glucometer 251H 01/20/19 06:00: White Blood Count 9.1, Red Blood Count 3.51L, Hemoglobin 9.6L, Hematocrit 31L, Mean Corpuscular Volume 88, Mean Corpuscular Hemoglobin 27, Mean Corpuscular Hemoglobin Concent 31L, Red Cell Distribution Width 14.2, Platelet Count 209, Mean Platelet Volume 12.3H, Neutrophils (%) (Auto) 69, Lymphocytes (%) (Auto) 20, Monocytes (%) (Auto) 9, Eosinophils (%) (Auto) 2, Basophils (%) (Auto) 0, Neutrophils # (Auto) 6.3, Lymphocytes # (Auto) 1.9, Monocytes # (Auto) 0.8, Eosinophils # (Auto) 0.1, Basophils # (Auto) 0.0, Prothrombin Time 13.4, INR Comment 1.0, Activated Partial Thromboplast Time 30, Sodium Level 142, Potassium Level 3.4L, Chloride Level 109H, Carbon Dioxide Level 21, Anion Gap 12, Blood Urea Nitrogen 16, Creatinine 0.78, Estimat Glomerular Filtration Rate > 60, BUN/Creatinine Ratio 21, Glucose Level 255H, Calcium Level 8.7, Corrected Calcium 9.5, Total Bilirubin 0.2, Aspartate Amino Transf (AST/SGOT) 15, Alanine Aminotransferase (ALT/SGPT) 14, Alkaline Phosphatase 131, Total Protein 5.8L, Albumin 3.0L 01/20/19 06:01: Glucometer 248H 01/20/19 11:14: Glucometer 120H Microbiology 01/18/19 Blood Culture - Preliminary, Resulted No growth A/P: Assessment/Dx: Critical limb ischemia, Systolic murmur, Right foot cellulitis. Plan: Critical limb ischemia, arterial ultrasound shows significant disease in the distal right SFA and possibility of no flow below the right knee. Severe disease in the left lower extremity as well. We will plan for peripheral angiogram and intervention tomorrow for critical limb ischemia and nonhealing ulcer. aspirin and Plavix. IV heparin. Get old records from [facility]. Systolic murmur, echocardiogram. Right foot cellulitis. IV antibiotics, deferred to Dr. Velarde and Dr. Amos. Thank you for your consultation. Please call me if you have any questions. William Aparicio MD, FACP, FACC, FSCAI, FHRS, CCDS Interventional Cardiology Cardiac Electrophysiology Vascular Medicine and Endovascular Interventions Zeke APARICIO MD Jan 20, 2019 3:22 pm
[2019-01-20] MEDS: ENOXAPARIN 40 MG/0.4 ML (LOVENOX) SYR SC SCH (15:58)
--- NOTE | 2019-01-20 16:12 | NUR ---
WAS TOLD PATIENT WAS PLACED ON 2 L NC DUE TO DESAT TO 88%
[2019-01-20] MEDS: SERTRALINE 50 MG (ZOLOFT) TABLET PO SCH (21:28)
[2019-01-21] VITALS (19 sets, daily range): BP systolic 142–178; BP diastolic 64–90
[2019-01-21] MEDS: fentaNYL INJECTION 100 MCG/2 ML AMP IVP PRN ×4 (00:55→20:06)
[2019-01-21] MEDS: CEFEPIME INJECTION 1,000 MG in WATER (STERILE) FOR INJECTION 10 ML IV SCH ×4 (02:21→18:34)
[2019-01-21 05:08] LABS: BASOPHILS % (AUTO) 0 % (0-10); EOSINOPHILS # (AUTO) 0.2 10^3/uL (0.0-0.3); EOSINOPHILS % (AUTO) 2 % (0-10); HEMATOCRIT 32 % (35-52); HEMOGLOBIN 9.8 G/DL (11.5-16.0); LYMPHOCYTES # (AUTO) 2.1 X 10^3 (1.0-4.0); LYMPHOCYTES % (AUTO) 21 % (12-44); MEAN CORPUSCULAR HEMOGLOBIN 28 PG (25-34); MEAN CORPUSCULAR HGB CONC 31 G/DL (32-36); MEAN CORPUSCULAR VOLUME 90 FL (80-99); MEAN PLATELET VOLUME 12.1 FL (7.4-10.4); MONOCYTES # (AUTO) 0.8 X 10^3 (0.0-1.0); MONOCYTES % (AUTO) 8 % (0-12); NEUTROPHILS % (AUTO) 69 % (42-75); PLATELET COUNT 214 10^3/uL (130-400); RED CELL DISTRIBUTION WIDTH 14.1 % (10.0-14.5)
[2019-01-21] MEDS: NS IV 1000 ML 1,000 ML IV SCH ×3 (05:17→21:55)
[2019-01-21 05:30] LABS: ALANINE AMINOTRANSFERASE 17 U/L (0-55); ALKALINE PHOSPHATASE 153 U/L (40-136); BILIRUBIN,TOTAL 0.2 MG/DL (0.1-1.0); BUN/CREATININE RATIO 16; CALCIUM 8.2 MG/DL (8.5-10.1); CARBON DIOXIDE 20 MMOL/L (21-32); CHLORIDE 110 MMOL/L (98-107); CREATININE SERUM 0.77 MG/DL (0.60-1.30); GFR ESTIMATED > 60; GLUCOSE 299 MG/DL (70-105); POTASSIUM 3.5 MMOL/L (3.6-5.0); SODIUM 140 MMOL/L (135-145); TOTAL PROTEIN 5.7 GM/DL (6.4-8.2)
[2019-01-21] MEDS: inSUlin ASPART (NovoLOG) 1 UNIT/0.01 ML (CHARGE PER UNIT) SC SCH ×3 (06:16→15:41)
[2019-01-21] MEDS: LEVOTHYROXINE 112 MCG (LEVOTHROID) TAB PO SCH (06:17)
[2019-01-21] MEDS ORDERED: proPOfol 200 MG/20 ML (DIPRIVAN) VIAL IV ONE (08:34)
[2019-01-21] MEDS ORDERED: fentaNYL INJECTION 100 MCG/2 ML AMP ONE (08:35)
[2019-01-21] MEDS ORDERED: LIDOCAINE BOLUS 100 MG/5 ML (IMS) SYR ONE (08:35)
[2019-01-21] MEDS ORDERED: MIDAZOLAM 2 MG/2 ML (VERSED) VIAL ONE (08:35)
[2019-01-21] MEDS: ARTIFICAL TEARS 0.4 ML UNIT DOSE (REFRESH PLUS) OU SCH ×4 (08:44→21:55)
[2019-01-21] MEDS ORDERED: PHENYLEPHRINE 100 MCG/ML 10 ML (ANESTHESIA) SYR ONE (09:25)
[2019-01-21] MEDS ORDERED: ONDANSETRON 4 MG/2 ML (SDV) Z0FRAN ONE (09:26)
--- NOTE | 2019-01-21 09:41 | Progress Note - Hospitalist ---
HERI SPAULDING [facility] 01/21/19 0940: Subjective HPI/CC On Admission Date Seen by Provider: Jan 21, 2019 Time Seen by Provider: 08:18 CC: Right leg cellulitis recurrent type failed antibiotics outpatient HPI: This is a 73yoWF who is very complex given the fact of type 1 DM for many years brittle status managed by Dr. Willis endocrinology who presented as a direct admit from my clinic from the assisted for worsening right foot cellulitis. The wound itself that had been present for the last 6 weeks had a ctually looked good and clean and had been taken care of appropriately but edema and erythema had just started in the foot indicating the Cefepime they just started for the wound infection as failing the pt so she was placed on Vancomycin and Cefepime empirically, arterial ultrasound obtained revealing no circulation to the foot after recent intervention by Dr. Barraza approximately twelve weeks ago and I did actually review that report when she was hospitalized inpatient rehab and senior behavioral unit.At this current time we will check MRI for osteomyelitis and limited bone scan and restart her home medications and place the picc line because she does have poor IV access. I have also asked Dr. Amos consultation for the wound and Dr. Aparicio will perform angiogram and possible angioplasty. Subjective/Events-last exam * Pt was more alert and able to communicate better this morning. * She reported sleeping better last night. * She is still confused why she is in the hospital, and I tried to explain that she has poor blood flow in her right leg similar to what she had previously in her left leg. * She seemed to understand, and I told her we were going to have surgery today to clean out her arteries like she had in the past. * She appeared to understand and stated her only complaint currently was the pain in her right leg. * She denied any chest pain or fast heart beating. * She denied any cough or trouble breathing * She denied any abdominal pain, nausea, or vomiting Focused Exam Respiratory: Chest Non Tender, Lungs Clear, Normal Breath Sounds, No Accessory Muscle Use, No Respiratory Distress Cardiovascular: Regular Rate, Rhythm, No Edema, Systolic Murmur Objective Exam Vital Signs Vital Signs Date Time Temp Pulse Resp B/P (MAP) Pulse Ox O2 Delivery O2 Flow Rate FiO2 01/21/19 08:00 95 Nasal Cannula 2.00 01/21/19 08:00 36.6 92 20 174/72 (106) 01/20/19 08:00 95 Capillary Refill : General Appearance: WD/WN, Mild Distress Neck: Full Range of Motion, Normal Inspection Respiratory: Chest Non Tender, Lungs Clear, Normal Breath Sounds, No Accessory Muscle Use, No Respiratory Distress Cardiovascular: Regular Rate, Rhythm, No Edema, No JVD, Normal Peripheral Pulses (Upper extremity only ), Systolic Murmur Extremity: No Calf Tenderness, No Pedal Edema, Other (Tenderness in right foot only ) Neurologic/Psychiatric: Alert, Normal Mood/Affect, Other (Confusion, Dementia) Skin: Normal Color, Warm/Dry Results/Procedures Lab Laboratory Tests 01/21/19 04:50 Patient resulted labs reviewed. Assessment/Plan Assessment and Plan Assess & Plan/Chief Complaint Assessment: Cellulitis Type 1 Diabetes Dementia Depression PVD Plan: Consult surgery for wound Scheduled for vascular procedure on right lower extremity by Dr Aparicio Echocardiogram for new murmur Manage diabetes with long acting insulin and insulin sliding scale Manage depression and dementia Pain management Clinical Quality Measures DVT/VTE Risk/Contraindication: Risk Factor Score Per Nursin RFS Level Per Nursing on Admit: 4+=Very High DULCE GALVEZ DO 01/21/19 1114: Subjective Subjective/Events-last exam Appreciate angiogram by Severity of vascular disease from diabetes is profound Patient remains at high risk for amputation above the knee bilaterally Dementia precludes anything but a poor prognosis Review of Systems General: Fatigue Musculoskeletal: leg pain Neurological: Confusion Objective Exam General Appearance: No Apparent Distress, WD/WN, Chronically ill Respiratory: Lungs Clear Cardiovascular: Regular Rate, Rhythm, Systolic Murmur Neurologic/Psychiatric: Alert Assessment/Plan Assessment and Plan Assess & Plan/Chief Complaint Appreciate angiogram procedure High risk for ultimate amputations of the legs Diagnosis/Problems Diagnosis/Problems (1) Cellulitis of right foot (2) DKA (diabetic ketoacidoses) (3) Anxiety (4) Depression (5) NPH (normal pressure hydrocephalus) (6) Hypothyroidism (7) PVD (peripheral vascular disease) Status: Chronic (8) Hypertension (9) Falls frequently (10) CVA (cerebral vascular accident) (11) Memory deficit (12) Toe ulcer due to DM Status: Acute (13) Myocardial infarct, old (14) Presbycusis of both ears (15) Diabetes mellitus, insulin dependent (IDDM), controlled (16) Autonomic dysfunction with type 2 diabetes mellitus (17) 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 I reviewed and verified all information documented by the medical student and made modifications to such information, when appropriate. I personally performed the physical exam and medical decision making. Dulce Galvez, Jan 21, 2019,11:13 [facility] Jan 21, 2019 09:40 DULCE GALVEZ DO Jan 21, 2019 11:14
[2019-01-21] MEDS ORDERED: HEParin 1000 UNIT/ML (10ML VIAL) FOR BOLUS ONE (09:50)
[2019-01-21] MEDS ORDERED: TROUGH ORDER-PHARMACY XX NR (11:00)
[2019-01-21] MEDS ORDERED: SEVOFLURANE (ULTANE) 15 ML INHAL SOLN ONE ×2 (11:23)
--- NOTE | 2019-01-21 11:30 | Cardiology Progress Note ---
Cardiology SOAP Progress Note Subjective: No significant cardiac complaints. Objective: I&O/Vital Signs 01/21/19 01/21/19 01/21/19 01/21/19 00:00 04:00 08:00 08:00 Temp 36.8 36.4 36.6 Pulse 97 110 92 Resp 18 16 20 B/P (MAP) 173/78 (109) 142/78 (99) 174/72 (106) Pulse Ox 95 92 97 95 O2 Delivery Nasal Cannula Nasal Cannula Room Air Nasal Cannula O2 Flow Rate 2.00 2.00 2.00 01/21/19 00:00 Intake Total 710 ml Balance 710 ml Weight (Pounds): 156 Weight (Ounces): 1.4 Weight (Calculated Kilograms): 70.074995 Constitutional: appears stated age; No apparent distress; well-developed, well- nourished Respiratory: chest is bilaterally symmetric, lungs clear to auscultation Cardiovascular: regular rate-rhythm, S1 and S2, systolic murmur Gastrointestional: soft, audible bowel sounds; No spleenomegaly Extremities: normal range of motion, non-tender, normal inspection; No club linette, No cyanosis; no lower extremity edema bilateral; No significant edema Neurologic/Psychiatric: alert, normal mood/affect Skin: normal color, warm/dry Results/Procedures: Labs Laboratory Tests 01/20/19 16:04: Glucometer 168H 01/20/19 20:36: Glucometer 279H 01/21/19 04:50: White Blood Count 10.0, Red Blood Count 3.53L, Hemoglobin 9.8L, Hematocrit 32L, Mean Corpuscular Volume 90, Mean Corpuscular Hemoglobin 28, Mean Corpuscular Hemoglobin Concent 31L, Red Cell Distribution Width 14.1, Platelet Count 214, Mean Platelet Volume 12.1H, Neutrophils (%) (Auto) 69, Lymphocytes (%) (Auto) 21, Monocytes (%) (Auto) 8, Eosinophils (%) (Auto) 2, Basophils (%) (Auto) 0, Neutrophils # (Auto) 7.0, Lymphocytes # (Auto) 2.1, Monocytes # (Auto) 0.8, Eosinophils # (Auto) 0.2, Basophils # (Auto) 0.0, Sodium Level 140, Potassium Level 3.5L, Chloride Level 110H, Carbon Dioxide Level 20L, Anion Gap 10, Blood Urea Nitrogen 12, Creatinine 0.77, Estimat Glomerular Filtration Rate > 60, BUN/Creatinine Ratio 16, Glucose Level 299H, Calcium Level 8.2L, Corrected Calcium 9.0, Total Bilirubin 0.2, Aspartate Amino Transf (AST/SGOT) 16, Alanine Aminotransferase (ALT/SGPT) 17, Alkaline Phosphatase 153H, Total Protein 5.7L, Albumin 3.0L 01/21/19 05:32: Glucometer 273H Microbiology 01/18/19 Blood Culture - Preliminary, Resulted No growth 01/19/19 MRSA Screen - Final, Complete MRSA not isolated A/P: Assessment/Dx: Critical limb ischemia, Systolic murmur, Right foot cellulitis. Plan: Critical limb ischemia, arterial ultrasound shows significant disease in the distal right SFA and possibility of no flow below the right knee. Severe disease in the left lower extremity as well. We will plan for peripheral angiogram and intervention today for critical limb ischemia and nonhealing ulcer. aspirin and Plavix. IV heparin. Get old records from [facility]. Systolic murmur, echocardiogram. Right foot cellulitis. IV antibiotics, deferred to Dr. Velarde and Dr. Amos. Thank you for your consultation. Please call me if you have any questions. William Aparicio MD, FACP, FACC, FSCAI, FHRS, CCDS Interventional Cardiology Cardiac Electrophysiology Vascular Medicine and Endovascular Interventions Zeke APARICIO MD Jan 21, 2019 11:30 am
--- NOTE | 2019-01-21 11:31 | Coronary Angiography & PCI ---
Peripheral Angio & Interv DATE OF SERVICE: 01/21/19 PRIMARY PHYSICIAN: Dr. Dulce Amos PERFORMING INTERVENTIONALIST: Dr. William Aparicio INDICATION: Right critical limb ischemia. PREOPERATIVE INDICATION: Right critical limb ischemia. POSTOPERATIVE DIAGNOSIS: Occlusive right SFA disease, successful intervention. HISTORY: This is a 73-year-old lady with dementia. She has a right foot ulcer and surrounding cellulitis requiring IV antibiotics and admission to the hospital. She has known previous history of PAD and peripheral stents. Ultrasound arterial bilaterally was done which showed occlusive disease in the right lower extremity and severe disease in the left lower extremity. Working diagnosis is critical limb ischemia therefore peripheral angiogram and intervention is recommended. PROCEDURE PERFORMED: 1. Abdominal aortogram with nonselective bilateral renal angiogram. 2. Bilateral lower extremity runoff. 3. Selective right lower extremity angiogram. 4. LOOPER OPERATOR of the right BOTANY LABORATORY ASSISTANT, SFA, popliteal artery. SPECIMENS: None. ANESTHESIA: Conscious sedation. BLOOD LOSS: 20 mL. COMPLICATIONS: None. CONTRAST USED: 119 ml. FLUOROSCOPY DOSE: 539 Mgy. FLUOROSCOPY TIME: 25 minutes. ANTICOAGULATION: IV heparin DESCRIPTION OF PROCEDURE: The patient was brought to the director geophysical laboratory after informed consent was taken. All the risks and complications were explained in detail. The patient was draped and prepped in the usual sterile fashion. Access was gained in the left femoral artery with a 6 [place]anese sheath. A pigtail catheter was advanced over the 035 wire. The pigtail catheter was placed in the mid abdominal aorta and an abdominal aortogram with nonselective bilateral renal angiogram was done. The catheter was then pulled down at the level of the bifurcation of the aorta and bilateral lower extremity runoff was performed. Crossover was performed with the rim catheter. A stork wire was advanced into the SFA. The wire was kept in the SFA and the rim catheter was taken out. A 6 x 45 mm long sheath was placed. Selective right lower extremity angiogram was done. FINDINGS: No significant disease in the abdominal aorta. Patent bilateral renal arteries. Patent stent in the right common iliac artery. Patent right external iliac artery. Occluded right proximal SFA. Mid/distal SFA stent is totally occluded with reconstitution in the popliteal artery. Three-vessel runoff below the knee. Primarily with an anterior tibial artery. The deep peroneal artery and the posterior tibial artery are diffusely diseased. Patent stent in the left common/external iliac artery. Severe disease in the left BOTANY LABORATORY ASSISTANT, proximal SFA. Mild to moderate disease in the left SFA stent. Severe stenosis in the popliteal artery. Primarily single-vessel runoff with an anterior tibial artery. RECOMMENDATIONS: Intervention to the right SFA is recommended. INTERVENTIONAL DETAILS: IV heparin was given for anticoagulation. ACT was over 200. The tip of the long sheath was placed in the right mid BOTANY LABORATORY ASSISTANT. We then took a 0.018 angled Glidewire with the help of a mini support catheter. However we were still not able to get into the occlusive proximal segment of the SFA. We then took a Terumo 4 Bhutanese non-taper angled glide catheter. We were able to cross the occlusive segment in the proximal SFA. The angled glide catheter was advanced into the mid SFA stent. With difficulty we were able to cross the entire occlusive segment with the 0.018 guidewire. The tip of the guidewire was placed in the popliteal artery. We then took an wilmer cross 0.035 x 150 cm. This was advanced till the popliteal artery. The wire was taken out. Selective angiogram showed that we were intraluminal. The wire was placed again in the anterior tibial artery. We then took [place] 18 5 x 200 x 150 balloon and performed balloon angioplasty in the entire length of the occluded segment at 14 salud for 3 minutes. At least 3 inflations were done. The balloon was taken out and post-angiogram showed distal disease in the popliteal artery which was treated with an [place] 18 4 x 80 x 150 balloon. Balloon was inflated at 10 salud for 3 minutes. Excellent results. We therefore decided not to stent the popliteal artery or the proximal segment of the SFA since there was brisk flow and less than 20 percent residual stenosis. The wire was taken out and post- angiogram showed good results with no vascular complication. The sheath was pulled back to the bifurcation and a quick angiogram showed no damage to the bifurcation of the aorta. Manual compression will be held. CONCLUSION: 1. Right critical limb ischemia, occluded right SFA, occluded stent in the right proximal/mid/distal SFA, reconstitution in the mid popliteal artery. Successful revascularization with balloon angioplasty. 2. Aspirin and plavix moth exterminator. 3. IV fluids. 4. Staged procedure to left lower extremity in the near future. William Aparicio MD, FACP, FACC, [facility] Zeke APARICIO MD Jan 21, 2019 11:31 POS
[2019-01-21] MEDS ORDERED: ONDANSETRON 4 MG/2 ML (SDV) Z0FRAN IVP PRN (11:45)
[2019-01-21] MEDS ORDERED: fentaNYL INJECTION 100 MCG/2 ML AMP IVP PRN (11:45)
[2019-01-21] MEDS ORDERED: PATIENT MAY USE OWN MEDS, ALL PO SCH (11:45)
[2019-01-21] MEDS: ASPIRIN E.C. 81 MG (ECOTRIN) TAB PO SCH (12:05)
[2019-01-21] MEDS: CLOPIDOGREL 75 MG (PLAVIX) TABLET PO SCH (12:06)
[2019-01-21] MEDS: SIMvastatin 40 MG (ZOCOR) TAB PO SCH (12:06)
[2019-01-21] MEDS: GABAPENTIN 300 MG (NEURONTIN) CAP PO SCH ×3 (12:06→21:54)
[2019-01-21] MEDS: LIDOCAINE 4% (SALONPAS) PATCH TOP SCH (12:07)
--- NOTE | 2019-01-21 13:33 | Anesthesia-General Post-Op ---
General Patient Condition Mental Status/LOC: Same as Preop Cardiovascular: Satisfactory Nausea/Vomiting: Absent Respiratory: Satisfactory Pain: Controlled Complications: Absent Post Op Complications Complications None Follow Up Care/Instructions Patient Instructions None needed. Anesthesia/Patient Condition Patient Condition Patient is doing well, no complaints, stable vital signs, no apparent adverse anesthesia problems. No complications reported per nursing. ANY GE CRNA Jan 21, 2019 13:33
[2019-01-21] MEDS: VANCOMYCIN 1250 MG/NS 250 ML IVPB IV SCH ×2 (15:13)
[2019-01-21] MEDS: ENOXAPARIN 40 MG/0.4 ML (LOVENOX) SYR SC SCH (17:10)
[2019-01-21] MEDS ORDERED: ATROPINE INJECTION 1 MG/10 ML SYR (ABBOTT) ONE (18:16)
[2019-01-21] MEDS ORDERED: fentaNYL INJECTION 100 MCG/2 ML AMP IVP STA (18:20)
[2019-01-21] MEDS ORDERED: NON-FORMULARY MEDICATION 1 EA EA (Eyelid Cleanser Combination #5 (Ocusoft Lid Scrub) 1 EAC TOP SCH (20:15)
[2019-01-21] MEDS: SERTRALINE 50 MG (ZOLOFT) TABLET PO SCH (21:55)
--- NOTE | 2019-01-21 23:45 | NUR ---
Received patient on the floor at 23:45. Received report from KATHERINE Ramsey - ICU Nurse. Agreed with previous nurse assessment. Checked left groin dressing, dry and intact.
[2019-01-22] VITALS (14 sets, daily range): BP systolic 104–206; BP diastolic 46–92
[2019-01-22] MEDS: fentaNYL INJECTION 100 MCG/2 ML AMP IVP PRN ×3 (00:22→20:46)
[2019-01-22] MEDS ORDERED: CEFEPIME 1 GM (MAXIPIME) VIAL ONE ×3 (02:31→18:11)
[2019-01-22] MEDS ORDERED: WATER (STERILE) FOR INJECTION 10 ML ONE ×3 (02:31→18:12)
[2019-01-22] MEDS: CEFEPIME INJECTION 1,000 MG in WATER (STERILE) FOR INJECTION 10 ML IV SCH ×3 (02:39→18:21)
[2019-01-22 04:42] LABS: BASOPHILS # (AUTO) 0.1 10^3/uL (0.0-0.1); BASOPHILS % (AUTO) 0 % (0-10); EOSINOPHILS # (AUTO) 0.1 10^3/uL (0.0-0.3); EOSINOPHILS % (AUTO) 0 % (0-10); HEMATOCRIT 33 % (35-52); HEMOGLOBIN 10.1 G/DL (11.5-16.0); LYMPHOCYTES # (AUTO) 1.2 X 10^3 (1.0-4.0); LYMPHOCYTES % (AUTO) 9 % (12-44); MEAN CORPUSCULAR HEMOGLOBIN 28 PG (25-34); MEAN CORPUSCULAR HGB CONC 31 G/DL (32-36); MEAN CORPUSCULAR VOLUME 90 FL (80-99); MONOCYTES % (AUTO) 8 % (0-12); NEUTROPHILS # (AUTO) 10.7 X 10^3 (1.8-7.8); NEUTROPHILS % (AUTO) 82 % (42-75); PLATELET COUNT 224 10^3/uL (130-400); RED CELL DISTRIBUTION WIDTH 14.6 % (10.0-14.5)
[2019-01-22 05:04] LABS: ALANINE AMINOTRANSFERASE 14 U/L (0-55); ALBUMIN 3.2 GM/DL (3.2-4.5); ALKALINE PHOSPHATASE 165 U/L (40-136); BILIRUBIN,TOTAL 0.3 MG/DL (0.1-1.0); BUN/CREATININE RATIO 13; CALCIUM 8.8 MG/DL (8.5-10.1); CARBON DIOXIDE 18 MMOL/L (21-32); CHLORIDE 107 MMOL/L (98-107); CREATININE SERUM 0.79 MG/DL (0.60-1.30); GFR ESTIMATED > 60; GLUCOSE 293 MG/DL (70-105); POTASSIUM 3.6 MMOL/L (3.6-5.0); SODIUM 140 MMOL/L (135-145); TOTAL PROTEIN 6.4 GM/DL (6.4-8.2)
--- NOTE | 2019-01-22 05:15 | NUR ---
Called Dr. Quintero and informed him that patient's blood pressure has been trending high, last BP before call was 206/83 on automatic cuff and 185/80 on manual cuff. No new orders at this time. Doctor stated that he will see the patient in the morning.
[2019-01-22] MEDS: LEVOTHYROXINE 112 MCG (LEVOTHROID) TAB PO SCH (06:14)
[2019-01-22] MEDS: inSUlin ASPART (NovoLOG) 1 UNIT/0.01 ML (CHARGE PER UNIT) SC SCH ×3 (06:15→18:22)
[2019-01-22] MEDS: SIMvastatin 40 MG (ZOCOR) TAB PO SCH (08:31)
[2019-01-22] MEDS: ASPIRIN E.C. 81 MG (ECOTRIN) TAB PO SCH (08:32)
[2019-01-22] MEDS: CLOPIDOGREL 75 MG (PLAVIX) TABLET PO SCH (08:32)
[2019-01-22] MEDS: GABAPENTIN 300 MG (NEURONTIN) CAP PO SCH ×4 (08:32→21:42)
[2019-01-22] MEDS: LIDOCAINE 4% (SALONPAS) PATCH TOP SCH (08:33)
[2019-01-22] MEDS: ARTIFICAL TEARS 0.4 ML UNIT DOSE (REFRESH PLUS) OU SCH ×4 (08:34→21:42)
[2019-01-22] MEDS: NS IV 1000 ML 1,000 ML IV SCH ×2 (09:22→18:23)
--- NOTE | 2019-01-22 10:06 | Cardiology Progress Note ---
Subjective Date Seen by Provider: Jan 22, 2019 Time Seen by Provider: 10:03 Subjective/Events-last exam Patient is laying down in bed, not following commands, groin is healing well Review of Systems General: Other (unable to provide review of systems) Pulmonary: Dyspnea Objective-Cardiology Exam Last Set of Vital Signs Vital Signs 01/20/19 01/22/19 01/22/19 08:00 07:40 08:00 Temp 36.8 Pulse 121 Resp 20 B/P (MAP) 142/92 (109) Pulse Ox 95 O2 Delivery OxyMask O2 Flow Rate 3.00 FiO2 95 Capillary Refill : Less Than 3 SecondsLess Than 3 Seconds I&O Intake and Output 01/22/19 00:00 Intake Total 3982.5 ml Output Total 125 ml Balance 3857.5 ml Intake Oral 700 ml IV Total 3282.5 ml Output Urine Total 125 ml # Voids 2 General: Alert, Other (Not responding to verbal command, opening her eyes) HEENT: Atraumatic Neck: Supple Lungs: Clear to Auscultation, Normal Air Movement Heart: Regular Rate, Normal S1, Normal S2 Abdomen: Normal Bowel Sounds Extremities: Other (Swelling and tenderness on the right leg) Skin: No Rashes Neuro: Other (Not following commands) Psych/Mental Status: Other (Not following commands) Results Lab Laboratory Tests 01/22/19 04:15 A/P-Cardiology Admission Diagnosis Critical limb ischemia Dementia Peripheral arterial disease Cellulitis Assessment/Plan Critical limb ischemia, extensive history of vascular disease, had balloon angioplasty to the right leg was reestablishment of the flow by Dr. Aparicio. Dementia Cellulitis, managed by primary care team Left groin is healing well, had extensive disease in the left leg. Clinical Quality Measures DVT/VTE Risk/Contraindication: Risk Factor Score Per Nursin RFS Level Per Nursing on Admit: 4+=Very High JULIO WYLIE MD Jan 22, 2019 10:06
--- NOTE | 2019-01-22 10:37 | Progress Note - Hospitalist ---
Subjective HPI/CC On Admission Date Seen by Provider: Jan 22, 2019 Time Seen by Provider: 11:45 CC: Right leg cellulitis recurrent type failed antibiotics outpatient HPI: This is a 73yoWF who is very complex given the fact of type 1 DM for many years brittle status managed by Dr. Willis endocrinology who presented as a dire ct admit from my clinic from the care home for worsening right foot cellulitis. The wound itself that had been present for the last 6 weeks had actually looked good and clean and had been taken care of appropriately but edema and erythema had just started in the foot indicating the Cefepime they just started for the wound infection as failing the pt so she was placed on Vancomycin and Cefepime empirically, arterial ultrasound obtained revealing no circulation to the foot after recent intervention by Dr. Barraza approximately twelve weeks ago and I did actually review that report when she was hospitalized inpatient rehab and senior behavioral unit.At this current time we will check MRI for osteomyelitis and limited bone scan and restart her home medications and place the picc line because she does have poor IV access. I have also asked Dr. Amos consultation for the wound and Dr. Aparicio will perform angiogram and possible angioplasty. Subjective/Events-last exam The patient was sleeping soundly after receiving some Haldol for agitated delirium last night. For this reason was unable to obtain any history. Objective Exam Vital Signs Vital Signs Date Time Temp Pulse Resp B/P (MAP) Pulse Ox O2 Delivery O2 Flow Rate FiO2 01/22/19 11:46 36.7 104 20 158/86 (110) 98 OxyMask 3.00 01/20/19 08:00 95 Capillary Refill : Less Than 3 SecondsLess Than 3 Seconds General Appearance: No Apparent Distress, Chronically ill Respiratory: Chest Non Tender, No Accessory Muscle Use, No Respiratory Distress, Rhonci (Scattered in appearance upper airway and sounding no focal consolidative findings noted. No wheezing appreciated.) Cardiovascular: Regular Rate, Rhythm, No Gallop, No JVD, Diastolic Murmur (Decrescendo over the aortic outflow tract 1-2/6 subtle with blunting of S2), Systolic Murmur (3/6 systolic ejection murmur heard best over the aortic outflow tract.) Gastrointestinal: Normal Bowel Sounds, No Organomegaly, No Pulsatile Mass, Non Tender, Soft Extremity: Other (Trace edema of the right lower extremity which is warm and eschar dime size is noted over the heel no drainage no surrounding erythema or induration.) Neurologic/Psychiatric: Other ([place]) Results/Procedures Lab Laboratory Tests 01/22/19 04:15 Patient resulted labs reviewed. Assessment/Plan Assessment and Plan Assess & Plan/Chief Complaint A/P 1. Status post stenting of the right SFA appears to be successful for is warm which should help a nonhealing right heel eschar. There does not appear to be evidence for significant cellulitis. 2. Agitated delirium multifactorial no evidence for sepsis at this time. Continue current antibiotics. 3. Physical examination suggest underlying aortic stenosis and insufficiency being followed by Dr. Tyler echocardiogram reportedly ordered. Clinical Quality Measures DVT/VTE Risk/Contraindication: Risk Factor Score Per Nursin RFS Level Per Nursing on Admit: 4+=Very High RAJANI EDWARDS MD Jan 22, 2019 10:37
[2019-01-22] MEDS: VANCOMYCIN 1250 MG/NS 250 ML IVPB IV SCH ×2 (11:58)
--- NOTE | 2019-01-22 12:03 | Progress Note ---
Subjective Date Seen by a Provider: Jan 22, 2019 Time Seen by a Provider: 10:00 Subjective/Events-last exam doing ok. confused. right heel decubitus ulcer appears intact without s urrounding redness/erythema. no fever/chills. Objective Exam Vital Signs Date Time Temp Pulse Resp B/P (MAP) Pulse Ox O2 Delivery O2 Flow Rate FiO2 01/22/19 11:46 36.7 104 20 158/86 (110) 98 OxyMask 3.00 01/22/19 08:00 OxyMask 3.00 01/22/19 07:40 36.8 121 20 142/92 (109) 95 OxyMask 3.00 01/22/19 07:00 107 01/22/19 04:40 185/80 (115) 01/22/19 03:50 35.9 113 18 206/83 (124) 96 Room Air 3.00 01/22/19 01:00 105 01/22/19 00:00 98 OxyMask 3.00 01/21/19 23:50 36.4 116 20 170/90 (116) 98 OxyMask 3.00 01/21/19 20:00 110 20 167/81 (109) 98 Room Air 01/21/19 20:00 Room Air 2.00 01/21/19 19:00 110 01/21/19 17:00 114 15 91 Room Air 01/21/19 16:00 109 17 158/67 (97) 94 Room Air 01/21/19 16:00 36.2 01/21/19 15:00 108 26 155/85 (108) 90 Room Air 01/21/19 14:00 100 13 150/76 (100) 99 Room Air 01/21/19 13:30 99 15 164/73 (103) 99 Room Air 01/21/19 13:15 93 15 157/78 (104) 100 Room Air 01/21/19 13:00 100 01/21/19 13:00 102 19 178/80 (112) 90 Room Air 01/21/19 12:45 96 16 165/76 (105) 92 Room Air 01/21/19 12:30 OxyMask 2 01/21/19 12:30 101 12 163/75 (104) Room Air 01/21/19 12:30 37.0 20 168/74 (105) 94 OxyMask 2 01/21/19 12:20 20 167/72 (103) 94 OxyMask 2 01/21/19 12:15 OxyMask 2 01/21/19 12:10 20 161/76 (104) 97 2 01/21/19 12:00 20 162/73 (102) 98 OxyMask 5 01/21/19 12:00 OxyMask 3 I & O 01/22/19 07:00 Intake Total 2882.5 ml Output Total 475 ml Balance 2407.5 ml Capillary Refill : Less Than 3 SecondsLess Than 3 Seconds General Appearance: No Apparent Distress HEENT: PERRL/EOMI Neck: Full Range of Motion Respiratory: Chest Non Tender, Normal Breath Sounds, Decreased Breath Sounds Cardiovascular: Regular Rate, Rhythm Gastrointestinal: normal bowel sounds, non tender, soft Extremity: Normal Capillary Refill Neurologic/Psychiatric: Alert, Oriented x3 Skin: Normal Color Lymphatic: No Adenopathy Results Lab Laboratory Tests 01/21/19 14:10: Activated Partial Thromboplast Time 102H, Vancomycin Level Trough 9.3L 01/21/19 16:10: Activated Partial Thromboplast Time 61H 01/21/19 18:10: Activated Partial Thromboplast Time 29 01/22/19 04:15: White Blood Count 13.0H, Red Blood Count 3.62L, Hemoglobin 10.1L, Hematocrit 33L , Mean Corpuscular Volume 90, Mean Corpuscular Hemoglobin 28, Mean Corpuscular Hemoglobin Concent 31L, Red Cell Distribution Width 14.6H, Platelet Count 224, Mean Platelet Volume 12.0H, Neutrophils (%) (Auto) 82H, Lymphocytes (%) (Auto) 9L, Monocytes (%) (Auto) 8, Eosinophils (%) (Auto) 0, Basophils (%) (Auto) 0, Neutrophils # (Auto) 10.7H, Lymphocytes # (Auto) 1.2, Monocytes # (Auto) 1.0, Eosinophils # (Auto) 0.1, Basophils # (Auto) 0.1, Sodium Level 140, Potassium Level 3.6, Chloride Level 107, Carbon Dioxide Level 18L, Anion Gap 15H, Blood Urea Nitrogen 10, Creatinine 0.79, Estimat Glomerular Filtration Rate > 60, BUN/Creatinine Ratio 13, Glucose Level 293H, Calcium Level 8.8, Corrected Calcium 9.4, Total Bilirubin 0.3, Aspartate Amino Transf (AST/SGOT) 16, Alanine Aminotransferase (ALT/SGPT) 14, Alkaline Phosphatase 165H, Total Protein 6.4, Albumin 3.2 01/22/19 11:39: Glucometer 232H Microbiology 01/18/19 Blood Culture - Preliminary, Resulted No growth 01/19/19 MRSA Screen - Final, Complete MRSA not isolated Assessment/Plan Assessment/Plan Assess & Plan/Chief Complaint right heel diabetic/decubitus ulcer. continue current care with off loading pressure and abx. Clinical Quality Measures DVT/VTE Risk/Contraindication: Risk Factor Score Per Nursin RFS Level Per Nursing on Admit: 4+=Very High JAMES DOVE MD Jan 22, 2019 12:03
--- NOTE | 2019-01-22 13:52 | NUR ---
CALLED DR WYLIE REGARDING INCREASED HEART RATE. ORDERS TO MOVE HER TO ICU
[2019-01-22] MEDS: DILTIAZEM IV FOR DRIP 125 MG in NS (IVPB) 100 ML IV SCH ×2 (14:30→20:47)
[2019-01-22 14:42] LABS: BILIRUBIN,URINE NEGATIVE (NEGATIVE); CLARITY,URINE SLIGHTLY CLOUDY; COLOR,URINE YELLOW; GLUCOSE, URINE (UA) 4+ (NEGATIVE); KETONES,URINE 3+ (NEGATIVE); LEUKOCYTE ESTERASE ,URINE 3+ (NEGATIVE); NITRITE,URINE NEGATIVE (NEGATIVE); PH,URINE 5 (5-9); PROTEIN,URINE 2+ (NEGATIVE)
[2019-01-22 14:49] LABS: WBC,URINE 25-50 /HPF
[2019-01-22 14:50] LABS: BACTERIA,URINE MODERATE /HPF; YEAST,URINE LARGE /HPF
--- NOTE | 2019-01-22 14:55 | NUR ---
ELIEZER ZUNIGA admitted to room cu-11, with an admitting diagnosis of afib RVR, on 01/22/19 from 4th floor via , accompanied by .ELIEZER ZUNIGA introduced to surroundings, call light, bed controls, phone, TV, temperature control, lights, meal times, smoking policy, visitor policy, side rail policy, bathrooms and showers. Patient Rights given to patient in the handbook. ELIEZER ZUNIGA verbalizes understanding that [facility] is not responsible for the loss or damage to any personal effects or valuables that are kept in the patients possessions during their hospitalization. Patient and/or family were informed about the Rapid Response Team and its purpose. pt unable to comprehend and instructions at this time.
[2019-01-22] MEDS: ENOXAPARIN 40 MG/0.4 ML (LOVENOX) SYR SC SCH (18:22)
[2019-01-22] MEDS: HALOPERIDOL 5 MG/ML (HALDOL) AMP IM PRN (19:58)
[2019-01-22] MEDS ORDERED: NS (IVPB) 100 ML ONE (20:41)
[2019-01-22] MEDS ORDERED: DILTIAZEM 125 MG/25 ML IV (CARDIZEM) IV ONE (20:41)
[2019-01-22] MEDS: SERTRALINE 50 MG (ZOLOFT) TABLET PO SCH (21:42)
[2019-01-23] VITALS (24 sets, daily range): BP systolic 106–196; BP diastolic 49–89
[2019-01-23] MEDS: SERTRALINE 50 MG (ZOLOFT) TABLET PO SCH ×2 (00:31→20:11)
[2019-01-23] MEDS: GABAPENTIN 300 MG (NEURONTIN) CAP PO SCH ×4 (00:31→20:10)
[2019-01-23] MEDS: fentaNYL INJECTION 100 MCG/2 ML AMP IVP PRN (01:03)
[2019-01-23] MEDS ORDERED: WATER (STERILE) FOR INJECTION 10 ML ONE ×3 (02:47→17:35)
[2019-01-23] MEDS ORDERED: CEFEPIME 1 GM (MAXIPIME) VIAL ONE ×3 (02:49→17:35)
[2019-01-23] MEDS: CEFEPIME INJECTION 1,000 MG in WATER (STERILE) FOR INJECTION 10 ML IV SCH ×3 (02:54→17:40)
[2019-01-23] MEDS: NS IV 1000 ML 1,000 ML IV SCH ×2 (02:59→14:56)
--- NOTE | 2019-01-23 03:22 | NUR ---
This RN notified EICU of decreased urine output of 25 ml/hr. New order received at this time.
[2019-01-23] MEDS ORDERED: LACTATED RINGERS 1,000 ML IV ONE (03:35)
[2019-01-23 03:44] LABS: BASOPHILS % (AUTO) 0 % (0-10); EOSINOPHILS # (AUTO) 0.1 10^3/uL (0.0-0.3); EOSINOPHILS % (AUTO) 1 % (0-10); HEMATOCRIT 30 % (35-52); HEMOGLOBIN 8.9 G/DL (11.5-16.0); LYMPHOCYTES % (AUTO) 17 % (12-44); MEAN CORPUSCULAR HEMOGLOBIN 27 PG (25-34); MEAN CORPUSCULAR HGB CONC 30 G/DL (32-36); MEAN CORPUSCULAR VOLUME 91 FL (80-99); MEAN PLATELET VOLUME 12.4 FL (7.4-10.4); MONOCYTES # (AUTO) 1.3 X 10^3 (0.0-1.0); MONOCYTES % (AUTO) 11 % (0-12); NEUTROPHILS # (AUTO) 8.5 X 10^3 (1.8-7.8); NEUTROPHILS % (AUTO) 72 % (42-75); PLATELET COUNT 200 10^3/uL (130-400); RED CELL DISTRIBUTION WIDTH 14.7 % (10.0-14.5)
[2019-01-23 04:30] LABS: BUN/CREATININE RATIO 13; CALCIUM 8.8 MG/DL (8.5-10.1); CARBON DIOXIDE 21 MMOL/L (21-32); CHLORIDE 110 MMOL/L (98-107); CREATININE SERUM 0.75 MG/DL (0.60-1.30); GFR ESTIMATED > 60; GLUCOSE 123 MG/DL (70-105); MAGNESIUM 1.7 MG/DL (1.6-2.4); PHOSPHORUS 2.1 MG/DL (2.3-4.7); POTASSIUM 3.1 MMOL/L (3.6-5.0); SODIUM 144 MMOL/L (135-145)
[2019-01-23] MEDS ORDERED: LACTATED RINGERS 500 ML IV ONE (04:30)
[2019-01-23] MEDS: MAGNESIUM 1 GM/100 ML IVPB 100 ML IV SCH (06:00)
[2019-01-23] MEDS: POTASSIUM CL 10MEQ/50ML IVPB 50 ML IV SCH ×4 (06:00→08:37)
[2019-01-23] MEDS: KCL 20 MEQ TAB (K-DUR) PO SCH (06:01)
--- NOTE | 2019-01-23 06:02 | NUR ---
This RN notified EICU of morning labs: Potassium 3.1 and Magnesium 1.7. Unable to replace per protocol due to decreased urine output.
--- NOTE | 2019-01-23 06:11 | NUR ---
New orders received at this time from Dr. Kimmy MILLER to replace Potassium and Magnesium. See order hx.
[2019-01-23] MEDS: inSUlin ASPART (NovoLOG) 1 UNIT/0.01 ML (CHARGE PER UNIT) SC SCH ×3 (06:35→17:41)
[2019-01-23] MEDS: LEVOTHYROXINE 112 MCG (LEVOTHROID) TAB PO SCH (06:35)
[2019-01-23] MEDS ORDERED: MAGNESIUM 1 GM/100 ML IVPB 100 ML IV ONE (06:45)
--- NOTE | 2019-01-23 08:08 | Diagnostic Imaging Report ---
CHEST 1 VIEW, AP/PA ONLY Indication: Dyspnea Comparison: 01/19/2019 Findings: New bilateral perihilar ill-defined opacities with vascular indistinctness. No pneumothorax. Potential trace right pleural effusion. Stable cardiomegaly. There are shunt catheters extending along the bilateral hemithoraces. Impression: 1. New central vascular prominent opacities are most suggestive of pulmonary edema. Dictated by: Dictated on workstation # [id number]
[2019-01-23] MEDS: ASPIRIN E.C. 81 MG (ECOTRIN) TAB PO SCH (08:24)
[2019-01-23] MEDS: HYDROcodone/APAP 7.5 MG/325 MG (LORTAB, LORCET PLUS) TABLET PO PRN ×2 (08:25→20:12)
[2019-01-23] MEDS: SIMvastatin 40 MG (ZOCOR) TAB PO SCH (08:25)
[2019-01-23] MEDS: ARTIFICAL TEARS 0.4 ML UNIT DOSE (REFRESH PLUS) OU SCH ×4 (08:25→20:10)
[2019-01-23] MEDS: CLOPIDOGREL 75 MG (PLAVIX) TABLET PO SCH (08:25)
[2019-01-23] MEDS: LIDOCAINE 4% (SALONPAS) PATCH TOP SCH (08:36)
--- NOTE | 2019-01-23 09:12 | Cardiology Progress Note ---
Subjective Date Seen by Provider: Jan 23, 2019 Time Seen by Provider: 09:10 Subjective/Events-last exam Patient is sleeping Ate her breakfast today, did not have any chest pain. Had an episode of atrial flutter ablation with rapid ventricular response converted back to sinus rhythm Review of Systems General: Other (Unable to provide review of systems) Objective-Cardiology Exam Last Set of Vital Signs Vital Signs 01/20/19 01/23/19 01/23/19 08:00 06:00 07:00 Pulse 88 Resp 17 B/P (MAP) 160/63 (95) Pulse Ox 96 O2 Delivery Nasal Cannula O2 Flow Rate 0.50 FiO2 95 Capillary Refill : Less Than 3 SecondsGreater Than 3 Seconds I&O Intake and Output 01/23/19 00:00 Intake Total 145 ml Output Total 950 ml Balance -805 ml Intake Oral 0 ml IV Total 145 ml Output Urine Total 950 ml # Voids 2 General: Alert, Other (Not responding to verbal command, opening her eyes) HEENT: Atraumatic Neck: Supple Lungs: Clear to Auscultation, Normal Air Movement Heart: Regular Rate, Normal S1, Normal S2, Other (Start murmur at the left sternal border) Abdomen: Normal Bowel Sounds Extremities: Other (Swelling and tenderness on the right leg) Skin: No Rashes Neuro: Other (Not following commands) Psych/Mental Status: Other (Not following commands) Results Lab Laboratory Tests 01/23/19 03:13 A/P-Cardiology Admission Diagnosis Critical limb ischemia Dementia Peripheral arterial disease Cellulitis Assessment/Plan Critical limb ischemia, extensive history of vascular disease, had balloon angioplasty to the right leg was reestablishment of the flow by Dr. Aparicio. Paroxysmal atrial fibrillation, had transient episode, converted back to sinus rhythm on Cardizem drip, I will stop the drip and use metoprolol Valvular heart disease with aortic valve stenosis murmur, I will evaluate 2-D echocardiogram Mild elevation in troponin level probably secondary to tachycardia, underlying coronary artery disease cannot be entirely excluded, management per Dr. Aparicio next Hypokalemia, replace and monitor Anemia, monitor H&H Hyperlipidemia, maintained on simvastatin Hypothyroidism maintained on levothyroxin, managed by primary care physician Diabetes mellitus, managed by primary care physician Dementia, advanced Cellulitis, managed by primary care team Clinical Quality Measures DVT/VTE Risk/Contraindication: Risk Factor Score Per Nursin RFS Level Per Nursing on Admit: 4+=Very High JULIO WYLIE MD Jan 23, 2019 09:12
--- NOTE | 2019-01-23 09:48 | Progress Note ---
Subjective Date Seen by a Provider: Jan 23, 2019 Time Seen by a Provider: 09:00 Subjective/Events-last exam right heal warm/well perfused. no surrounding redness/erythema heal dec ubitus/diabetic ulcer. a-fib controlled with medication. Objective Exam Vital Signs Date Time Temp Pulse Resp B/P (MAP) Pulse Ox O2 Delivery O2 Flow Rate FiO2 01/23/19 09:00 92 18 142/53 (82) 95 Nasal Cannula 0.50 01/23/19 08:00 105 30 171/67 (101) 95 Nasal Cannula 0.50 01/23/19 07:00 90 18 160/57 (91) 96 Nasal Cannula 0.50 01/23/19 07:00 88 01/23/19 06:00 91 17 160/63 (95) 96 Nasal Cannula 0.50 01/23/19 05:00 101 20 169/61 (97) 94 Nasal Cannula 0.50 01/23/19 04:00 90 23 158/68 (98) 95 Nasal Cannula 0.50 01/23/19 03:00 98 21 134/52 (79) 94 Nasal Cannula 0.50 01/23/19 02:00 102 18 123/49 (73) 93 Nasal Cannula 0.50 01/23/19 01:00 108 01/23/19 01:00 106 16 106/73 (84) 93 Nasal Cannula 0.50 01/23/19 00:00 36.8 01/23/19 00:00 101 18 140/59 (86) 90 Nasal Cannula 0.50 01/23/19 00:00 OxyMask 3.00 01/22/19 23:00 101 21 112/46 (68) 90 Nasal Cannula 0.50 01/22/19 22:00 106 21 117/51 (73) 92 Nasal Cannula 0.50 01/22/19 21:11 37.0 01/22/19 21:00 97 18 107/49 (68) 96 Nasal Cannula 0.50 01/22/19 20:47 104/79 01/22/19 20:00 37.0 01/22/19 20:00 OxyMask 3.00 01/22/19 20:00 108 19 104/79 (87) 90 Nasal Cannula 0.50 01/22/19 19:00 108 01/22/19 19:00 107 19 136/68 (90) 91 Nasal Cannula 0.50 01/22/19 18:00 108 24 129/58 (81) 91 Nasal Cannula 0.50 01/22/19 17:00 123 10 126/66 (86) 91 Nasal Cannula 0.50 01/22/19 16:00 134 32 129/67 (87) 91 Nasal Cannula 0.50 01/22/19 15:00 170 25 143/80 (101) 93 Nasal Cannula 0.50 01/22/19 14:30 165 24 148/79 (102) 96 Nasal Cannula 0.50 01/22/19 14:30 168 28 01/22/19 13:00 128 01/22/19 11:46 36.7 104 20 158/86 (110) 98 OxyMask 3.00 I & O 01/23/19 07:00 Intake Total 1645 ml Output Total 780 ml Balance 865 ml Capillary Refill : Less Than 3 SecondsGreater Than 3 Seconds General Appearance: No Apparent Distress HEENT: PERRL/EOMI Neck: Full Range of Motion Respiratory: Chest Non Tender, Lungs Clear Cardiovascular: Regular Rate, Rhythm Gastrointestinal: normal bowel sounds, non tender, soft Extremity: Normal Capillary Refill, Other (heal wound intact, no redness/erythema) Neurologic/Psychiatric: Disoriented Skin: Normal Color Lymphatic: No Adenopathy Results Lab Laboratory Tests 01/22/19 11:39: Glucometer 232H 01/22/19 14:35: Urine Color YELLOW, Urine Clarity SLIGHTLY CLOUDY, Urine pH 5, Urine Specific [place] 1.015L, Urine Protein 2+H, Urine Glucose (UA) 4+H, Urine Ketones 3+H, Urine Nitrite NEGATIVE, Urine Bilirubin NEGATIVE, Urine Urobilinogen NORMAL, Urine Leukocyte Esterase 3+H, Urine RBC (Auto) 1+H, Urine RBC NONE, Urine WBC 25-50H, Urine Squamous Epithelial Cells NONE, Urine Crystals NONE, Urine Bacteria MODERATEH, Urine Casts NONE, Urine Mucus NEGATIVE, Urine Yeast LARGEH, Urine Culture Indicated YES 01/22/19 23:49: Troponin I 0.177H 01/23/19 03:13: Troponin I 0.158H, White Blood Count 12.0H, Red Blood Count 3.26L, Hemoglobin 8.9L, Hematocrit 30L, Mean Corpuscular Volume 91, Mean Corpuscular Hemoglobin 27, Mean Corpuscular Hemoglobin Concent 30L, Red Cell Distribution Width 14.7H, Platelet Count 200, Mean Platelet Volume 12.4H, Neutrophils (%) (Auto) 72, Lymphocytes (%) (Auto) 17, Monocytes (%) (Auto) 11, Eosinophils (%) (Auto) 1, Basophils (%) (Auto) 0, Neutrophils # (Auto) 8.5H, Lymphocytes # (Auto) 2.0, Monocytes # (Auto) 1.3H, Eosinophils # (Auto) 0.1, Basophils # (Auto) 0.0, Sodium Level 144, Potassium Level 3.1L, Chloride Level 110H, Carbon Dioxide Level 21, Anion Gap 13, Blood Urea Nitrogen 10, Creatinine 0.75, Estimat Glomerular Filtration Rate > 60, BUN/Creatinine Ratio 13, Glucose Level 123H, Calcium Level 8.8, Phosphorus Level 2.1L, Magnesium Level 1.7 Microbiology 01/18/19 Blood Culture - Preliminary, Resulted No growth 01/19/19 MRSA Screen - Final, Complete MRSA not isolated Assessment/Plan Assessment/Plan Assess & Plan/Chief Complaint right heel diabetic/decubitus ulcer. continue current care with off loading pressure and abx. right LE warm and well perfused. Clinical Quality Measures DVT/VTE Risk/Contraindication: Risk Factor Score Per Nursin RFS Level Per Nursing on Admit: 4+=Very High JAMES DOVE MD Jan 23, 2019 09:48
--- NOTE | 2019-01-23 12:47 | Progress Note - Hospitalist ---
Subjective HPI/CC On Admission Date Seen by Provider: Jan 23, 2019 Time Seen by Provider: 09:30 CC: Right leg cellulitis recurrent type failed antibiotics outpatient HPI: This is a 73yoWF who is very complex given the fact of type 1 DM for many years brittle status managed by Dr. Willis endocrinology who presented as a dire ct [facility]ulitis. The wound itself that had been present for the last 6 weeks had actually looked good and clean and had been taken care of appropriately but edema and erythema had just started in the foot indicating the Cefepime they just started for the wound infection as failing the pt so she was placed on Vancomycin and Cefepime empirically, arterial ultrasound obtained revealing no circulation to the foot after recent intervention by Dr. Barraza approximately twelve weeks ago and I did actually review that report when she was hospitalized inpatient rehab and senior behavioral unit.At this current time we will check MRI for osteomyelitis and limited bone scan and restart her home medications and place the picc line because she does have poor IV access. I have also asked Dr. Amos consultation for the wound and Dr. Aparicio will perform angiogram and possible angioplasty. Subjective/Events-last exam Patient has a history of paroxysmal atrial fibrillation and again apparently went into atrial fibrillation with rapid ventricular response last night. She was transferred to the intensive care unit and Dr. Armendariz and started on a Cardizem drip. Overnight she did convert. She denies chest pain or shortness of breath currently. Objective Exam Vital Signs Vital Signs Date Time Temp Pulse Resp B/P (MAP) Pulse Ox O2 Delivery O2 Flow Rate FiO2 01/23/19 12:00 37.0 01/23/19 12:00 87 16 122/52 (75) 94 Nasal Cannula 0.50 01/20/19 08:00 95 Capillary Refill : Less Than 3 SecondsGreater Than 3 Seconds General Appearance: No Apparent Distress, Chronically ill Respiratory: Chest Non Tender, No Accessory Muscle Use, No Respiratory Distress, Crackles (Noted midlung [place] bilaterally without wheezing.) Cardiovascular: Regular Rate, Rhythm, No Gallop, Diastolic Murmur (2/6 heard best over the aortic outflow tract), Systolic Murmur (3/6 heard best over the aortic outflow tract) Gastrointestinal: Normal Bowel Sounds, No Organomegaly, No Pulsatile Mass, Non Tender, Soft Results/Procedures Lab Laboratory Tests 01/23/19 03:13 Patient resulted labs reviewed. Assessment/Plan Assessment and Plan Assess & Plan/Chief Complaint A/P 1. Status post stenting of the right SFA appears to be successful for is warm which should help a nonhealing right heel eschar. There does not appear to be evidence for significant cellulitis. 2. Agitated delirium multifactorial no evidence for sepsis at this time. Continue current antibiotics. 3. Paroxysmal atrial fibrillation with rapid ventricular response resulting in transfer to intensive care unit. Currently the patient is converted back to sinus rhythm with physical exam findings suggesting underlying congestive heart failure. This is most likely rate related as today's echo per Dr. Kala guzman led an ejection fraction of 55-60 percent with mild to moderate aortic stenosis and [id number] aortic insufficiency with pulmonary artery pressure estimated at 25-30 mmHg. Continue management per Dr. Tyler. Overall prognosis poor. Critical Care Critically Ill Patient Clinical Quality Measures DVT/VTE Risk/Contraindication: Risk Factor Score Per Nursin RFS Level Per Nursing on Admit: 4+=Very High RAJANI EDWARDS MD Jan 23, 2019 12:47
[2019-01-23 13:59] LABS: HEMOGLOBIN 8.6 G/DL (11.5-16.0)
[2019-01-23 14:13] LABS: BUN/CREATININE RATIO 13; CALCIUM 8.7 MG/DL (8.5-10.1); CARBON DIOXIDE 20 MMOL/L (21-32); CHLORIDE 111 MMOL/L (98-107); GFR ESTIMATED > 60; GLUCOSE 83 MG/DL (70-105); MAGNESIUM 1.9 MG/DL (1.6-2.4); POTASSIUM 3.4 MMOL/L (3.6-5.0); SODIUM 143 MMOL/L (135-145)
[2019-01-23] MEDS: ENOXAPARIN 40 MG/0.4 ML (LOVENOX) SYR SC SCH (17:40)
[2019-01-24] VITALS (23 sets, daily range): BP systolic 117–186; BP diastolic 55–102
[2019-01-24] MEDS: NS IV 1000 ML 1,000 ML IV SCH (00:47)
[2019-01-24 03:40] LABS: BASOPHILS % (AUTO) 0 % (0-10); EOSINOPHILS # (AUTO) 0.2 10^3/uL (0.0-0.3); EOSINOPHILS % (AUTO) 1 % (0-10); HEMATOCRIT 29 % (35-52); HEMOGLOBIN 8.8 G/DL (11.5-16.0); LYMPHOCYTES % (AUTO) 17 % (12-44); MEAN CORPUSCULAR HEMOGLOBIN 27 PG (25-34); MEAN CORPUSCULAR HGB CONC 30 G/DL (32-36); MEAN CORPUSCULAR VOLUME 90 FL (80-99); MEAN PLATELET VOLUME 11.8 FL (7.4-10.4); MONOCYTES # (AUTO) 1.3 X 10^3 (0.0-1.0); MONOCYTES % (AUTO) 11 % (0-12); NEUTROPHILS # (AUTO) 8.4 X 10^3 (1.8-7.8); NEUTROPHILS % (AUTO) 71 % (42-75); PLATELET COUNT 218 10^3/uL (130-400); RED CELL DISTRIBUTION WIDTH 14.9 % (10.0-14.5); WHITE BLOOD COUNT 11.9 10^3/uL (4.3-11.0)
[2019-01-24 04:05] LABS: BUN/CREATININE RATIO 13; CALCIUM 8.6 MG/DL (8.5-10.1); CARBON DIOXIDE 20 MMOL/L (21-32); CHLORIDE 110 MMOL/L (98-107); CREATININE SERUM 0.67 MG/DL (0.60-1.30); GFR ESTIMATED > 60; MAGNESIUM 1.9 MG/DL (1.6-2.4); PHOSPHORUS 2.6 MG/DL (2.3-4.7); SODIUM 142 MMOL/L (135-145)
[2019-01-24 04:08] LABS: GLUCOSE 56 MG/DL (70-105)
[2019-01-24] MEDS: KCL 20 MEQ TAB (K-DUR) PO SCH (04:24)
[2019-01-24] MEDS: MAGNESIUM 1 GM/100 ML IVPB 100 ML IV SCH (04:24)
[2019-01-24] MEDS: POTASSIUM CL 10MEQ/50ML IVPB 50 ML IV SCH ×10 (04:24→11:47)
[2019-01-24] MEDS ORDERED: DEXTROSE 50% 50 ML (IMS) SYR ONE (04:56)
[2019-01-24] MEDS ORDERED: FUROSEMIDE 40 MG/4 ML INJ (LASIX) IVP NR (06:45)
[2019-01-24] MEDS: LEVOTHYROXINE 112 MCG (LEVOTHROID) TAB PO SCH (06:56)
[2019-01-24] MEDS: inSUlin ASPART (NovoLOG) 1 UNIT/0.01 ML (CHARGE PER UNIT) SC SCH ×3 (07:35→17:04)
--- NOTE | 2019-01-24 07:49 | Diagnostic Imaging Report ---
PATIENT HISTORY: Dyspnea. TECHNIQUE: Frontal view of the chest. COMPARISON: 01/23/2019 FINDINGS: The cardiac silhouette is normal in size. There is central vascular congestion and perihilar opacities. There is a small left pleural effusion. No pneumothorax is seen. Bilateral shunts are noted. IMPRESSION: 1. Perihilar opacities bilaterally, most likely due to edema. Overall aeration appears mildly decreased. 2. Small left pleural effusion. Dictated by: Dictated on workstation # [id number]
--- NOTE | 2019-01-24 08:01 | Progress Note - Surgery ---
[facility] 01/24/19 0801: Subjective Date Seen by a Provider: Jan 24, 2019 Time Seen by a Provider: 07:30 Subjective/Events-last exam Patient was able to verbally communicate. Stated that she was not feeling good due to shortness of breath. Did not have any pain. Asked if she was normally on oxygen at home and she stated that she lives at the hospital. Nurse Aid stated that her O2 saturation last night hovered around high 80%. Review of Systems General: No Chills, No Other (fevers) Pulmonary: Dyspnea; No Cough Cardiovascular: No: Chest Pain Gastrointestinal: No: Nausea, Vomiting, Abdominal Pain Could not receive any information. Objective Exam Vital Signs Date Time Temp Pulse Resp B/P (MAP) Pulse Ox O2 Delivery O2 Flow Rate FiO2 01/24/19 07:46 110 20 183/84 (117) 90 Nasal Cannula 2.50 01/24/19 06:00 105 25 178/87 (117) 92 Nasal Cannula 2.50 01/24/19 05:00 101 17 153/73 (99) 92 Nasal Cannula 2.50 01/24/19 04:00 94 16 92 Nasal Cannula 2.50 01/24/19 04:00 Nasal Cannula 2.00 01/24/19 03:00 90 15 141/63 (89) 93 Nasal Cannula 2.50 01/24/19 02:00 101 21 186/76 (112) 93 Nasal Cannula 2.50 01/24/19 01:04 98 01/24/19 01:00 103 19 152/64 (93) 93 Nasal Cannula 2.50 01/24/19 00:00 109 17 161/78 (105) 91 Nasal Cannula 2.50 01/24/19 00:00 Nasal Cannula 2.00 01/23/19 23:00 106 21 162/75 (104) 92 Nasal Cannula 2.50 01/23/19 22:00 100 17 161/68 (99) 93 Nasal Cannula 2.50 01/23/19 21:00 102 18 163/67 (99) 94 Nasal Cannula 2.50 01/23/19 20:00 107 21 191/89 (123) 94 Nasal Cannula 2.50 01/23/19 20:00 Nasal Cannula 2.00 01/23/19 20:00 37.3 01/23/19 19:00 104 01/23/19 19:00 101 21 194/79 (117) 94 Nasal Cannula 2.50 01/23/19 18:00 103 20 196/78 (117) 95 Nasal Cannula 0.50 01/23/19 17:00 99 22 169/68 (101) 95 Nasal Cannula 0.50 01/23/19 16:00 37.0 01/23/19 16:00 93 56 177/63 (101) 95 Nasal Cannula 0.50 01/23/19 15:35 Nasal Cannula 0.50 01/23/19 15:00 103 33 176/63 (100) 93 Nasal Cannula 0.50 01/23/19 14:00 92 17 141/57 (85) 94 Nasal Cannula 0.50 01/23/19 13:00 91 01/23/19 13:00 93 18 137/53 (81) 95 Nasal Cannula 0.50 01/23/19 12:00 37.0 01/23/19 12:00 87 16 122/52 (75) 94 Nasal Cannula 0.50 01/23/19 11:00 100 31 145/62 (89) 94 Nasal Cannula 0.50 01/23/19 10:00 90 16 132/49 (76) 95 Nasal Cannula 0.50 01/23/19 09:00 92 18 142/53 (82) 95 Nasal Cannula 0.50 01/23/19 08:00 105 30 171/67 (101) 95 Nasal Cannula 0.50 01/23/19 08:00 OxyMask 3.00 I & O 01/24/19 07:00 Intake Total 1000 ml Output Total 1310 ml Balance -310 ml Capillary Refill : Less Than 3 SecondsGreater Than 3 Seconds General Appearance: No Apparent Distress, Chronically ill Neck: Non Tender Respiratory: Chest Non Tender, Crackles (Noted midlung [place] bilaterally without wheezing.), Expiration (Increased expiratory phase), Other (Increased respiratory effort) Cardiovascular: No Edema, Tachycardia (with regular rhythm) Peripheral Pulses: 2+ Radial Pulses (R), 2+ Radial Pulses (L) Gastrointestinal: soft Extremity: Normal Capillary Refill (Radial Pulse), Other (No discerning inflammation noted at right foot. Both LE's felt warm and well perfused) Neurologic/Psychiatric: Alert, Disoriented Skin: Normal Color Lymphatic: No Adenopathy Results Lab Laboratory Tests 01/23/19 13:48: Hemoglobin 8.6L, Hematocrit 29L, Sodium Level 143, Potassium Level 3.4L, Chloride Level 111H, Carbon Dioxide Level 20L, Anion Gap 12, Blood Urea Nitrogen 9, Creatinine 0.70, Estimat Glomerular Filtration Rate > 60, BUN/Creatinine Ratio 13, Glucose Level 83, Calcium Level 8.7, Magnesium Level 1.9 01/24/19 03:20: Hemoglobin 8.8L, Hematocrit 29L, Sodium Level 142, Potassium Level 3.0L, Chloride Level 110H, Carbon Dioxide Level 20L, Anion Gap 12, Blood Urea Nitrogen 9, Creatinine 0.67, Estimat Glomerular Filtration Rate > 60, BUN/Creatinine Ratio 13, Glucose Level 56*L, Calcium Level 8.6, Magnesium Level 1.9, White Blood Count 11.9H, Red Blood Count 3.24L, Mean Corpuscular Volume 90, Mean Corpuscular Hemoglobin 27, Mean Corpuscular Hemoglobin Concent 30L, Red Cell Distribution Width 14.9H, Platelet Count 218, Mean Platelet Volume 11.8H, Neutrophils (%) (Auto) 71, Lymphocytes (%) (Auto) 17, Monocytes (%) (Auto) 11, Eosinophils (%) (Auto) 1, Basophils (%) (Auto) 0, Neutrophils # (Auto) 8.4H, Lymphocytes # (Auto) 2.0, Monocytes # (Auto) 1.3H, Eosinophils # (Auto) 0.2, Basophils # (Auto) 0.0, Phosphorus Level 2.6, B-Type Natriuretic Peptide 313.4H Microbiology 01/18/19 Blood Culture - Preliminary, Resulted No growth 01/19/19 MRSA Screen - Final, Complete MRSA not isolated Assessment/Plan Assessment/Plan Assessment/Plan Increase O2 Breathing treatments Monitor Vitals Monitor Wound healing. Continue antibiotics for Right Heel Ulcer Clinical Quality Measures DVT/VTE Risk/Contraindication: Risk Factor Score Per Nursin RFS Level Per Nursing on Admit: 4+=Very High PHILLIP MARIO DO 01/24/19 1716: Subjective Time Seen by a Provider: 11:30 Subjective/Events-last exam Pt seen and examined. Objective Exam Extremity: Other (No discerning inflammation noted at right foot. Both LE's felt warm and well perfused) Assessment/Plan Assessment/Plan Assessment/Plan Cellullits right foot - seems to have resolved with opening of artery. Continue ABX and I will sign off, can resee if needed. Supervisory-Addendum Brief Verification & Attestation Participated in pt care: history, MDM, physical Personally performed: exam, history, MDM Care discussed with: Medical Student Procedures: n/a Verification and Attestation of Medical Student E/M Service A medical student performed and documented this service in my presence. I reviewed and verified all information documented by the medical student and made modifications to such information, when appropriate. I personally performed the physical exam and medical decision making. Phillip Mario, Jan 24, 2019,17:16 ÁNGELA MOJICA Jan 24, 2019 08:01 PHILLIP HERNDON DO Jan 24, 2019 17:16 POS
[2019-01-24] MEDS ORDERED: DILTIAZEM 25 MG/5 ML INJ (CARDIZEM) VIAL IVP NR (09:00)
[2019-01-24] MEDS: ASPIRIN E.C. 81 MG (ECOTRIN) TAB PO SCH (09:03)
[2019-01-24] MEDS: LIDOCAINE 4% (SALONPAS) PATCH TOP SCH (09:03)
[2019-01-24] MEDS: CLOPIDOGREL 75 MG (PLAVIX) TABLET PO SCH (09:03)
[2019-01-24] MEDS: methylPREDNISolone 40 MG/ML (Solu-MEDROL) VIAL IV SCH ×3 (09:03→17:02)
[2019-01-24] MEDS: SIMvastatin 40 MG (ZOCOR) TAB PO SCH (09:04)
[2019-01-24] MEDS: ARTIFICAL TEARS 0.4 ML UNIT DOSE (REFRESH PLUS) OU SCH ×4 (09:10→20:28)
[2019-01-24] MEDS: GABAPENTIN 300 MG (NEURONTIN) CAP PO SCH ×3 (09:10→20:29)
[2019-01-24] MEDS: DILTIAZEM IV FOR DRIP 125 MG in NS (IVPB) 100 ML IV SCH (09:22)
[2019-01-24] MEDS: RT-ALBUTEROL/IPRATROPIUM 3 ML (DUONEB) VIAL INH SCH ×5 (10:12→22:21)
--- NOTE | 2019-01-24 10:35 | Progress Note - Hospitalist ---
Subjective HPI/CC On Admission CC: Right leg cellulitis recurrent type failed antibiotics outpatient HPI: This is a 73yoWF who is very complex given the fact of type 1 DM for many years brittle status managed by Dr. Willis endocrinology who [facility] foot cellulitis. The wound itself that had been present for the last 6 weeks had actually looked good and clean and had been taken care of appropriately but edema and erythema had just started in the foot indicating the Cefepime they just started for the wound infection as failing the pt so she was placed on Vancomycin and Cefepime empirically, arterial ultrasound obtained revealing no circulation to the foot after recent intervention by Dr. Barraza approximately twelve weeks ago and I did actually review that report when she was hospitalized inpatient rehab and senior behavioral unit.At this current time we will check MRI for osteomyelitis and limited bone scan and restart her home medications and place the picc line because she does have poor IV access. I have also asked Dr. Amos consultation for the wound and Dr. Aparicio will perform angiogram and possible angioplasty. Subjective/Events-last exam Pt looks very fatigued and reports not feeling well today. She stated she feels worthless and lazy laying in bed all day. She reports having some pain in her stomach pointing to the hypogastric region. She did report her right foot and leg were still hurting some. She did not remember having the angioplasty surgery performed a few days ago. She was able to remember her birthday, but did not get the current year correct. She denied feeling like her heart was racing despite being in A fib with a rate 125-130 on the Cardizem drip. She denied any dizziness, chest pain or shortness of breath, but did state she does cough sometimes. Review of Systems General: Fatigue HEENT: No Visual Changes Pulmonary: No Dyspnea; Cough Cardiovascular: No: Chest Pain, Palpitations Gastrointestinal: Abdominal Pain Musculoskeletal: leg pain, foot pain Neurological: Weakness, Confusion Focused Exam Respiratory: Chest Non Tender, Lungs Clear, Normal Breath Sounds, Accessory Muscle Use Cardiovascular: Normal Peripheral Pulses, Systolic Murmur, Irregularly Irregular Peripheral Pulses: 2+ Radial Pulses (R), 2+ Radial Pulses (L) Skin: normal color, warm/dry Objective Exam Vital Signs Vital Signs Date Time Temp Pulse Resp B/P (MAP) Pulse Ox O2 Delivery O2 Flow Rate FiO2 10/28/19 12:27 115 01/24/19 12:00 24 155/83 (107) 90 Nasal Cannula 2.50 01/24/19 08:00 36.3 01/20/19 08:00 95 Capillary Refill : Less Than 3 SecondsGreater Than 3 Seconds General Appearance: Chronically ill, Moderate Distress Neck: Full Range of Motion, Normal Inspection Respiratory: Chest Non Tender, Lungs Clear, Normal Breath Sounds, Accessory Muscle Use Cardiovascular: Normal Peripheral Pulses, Systolic Murmur, Irregularly Irregular, Tachycardia Gastrointestinal: Normal Bowel Sounds, Soft, Tenderness (Right upper quadrant) Extremity: No Calf Tenderness, Other (Ulcer on right foot ) Neurologic/Psychiatric: Alert; No Oriented x3 (x2); Depressed Affect, Other (Dementia) Skin: Normal Color, Warm/Dry Results/Procedures Lab Laboratory Tests 01/23/19 13:48 01/24/19 03:20 Patient resulted labs reviewed. Assessment/Plan Assessment and Plan Assess & Plan/Chief Complaint Assessment: Cellulitis Type 1 Diabetes Dementia Depression PVD A-fib with rapid ventricular rate Plan: Consult surgery for wound Consult cardiology for A fib management Manage diabetes with long acting insulin and insulin sliding scale Manage depression and dementia Pain management Clinical Quality Measures DVT/VTE Risk/Contraindication: Risk Factor Score Per Nursin RFS Level Per Nursing on Admit: 4+=Very High HERI SPAULDING Jan 24, 2019 10:35 POS
--- NOTE | 2019-01-24 12:52 | Progress Note ---
[facility] 01/24/19 1252: Subjective Date Seen by a Provider: Jan 24, 2019 Time Seen by a Provider: 10:07 Subjective/Events-last exam Pt looks very fatigued and reports not feeling well today. She stated she feels worthless and lazy laying in bed all day. She reports having some pain in her stomach pointing to the hypogastric region. She did report her right foot and leg were still hurting some. She did not remember having the angioplasty surgery performed a few days ago. She was able to remember her birthday, but did not get the current year correct. She denied feeling like her heart was racing despite being in A fib with a rate 125-130 on the Cardizem drip. She denied any dizziness, chest pain or shortness of breath, but did state she does cough sometimes. Review of Systems General: Fatigue HEENT: No Head Aches Pulmonary: No Dyspnea; Cough Cardiovascular: No: Chest Pain, Palpitations Gastrointestinal: Abdominal Pain; No: Nausea Musculoskeletal: leg pain (Right), foot pain (Right) Neurological: Weakness, Confusion Focused Exam Respiratory: Chest Non Tender, Lungs Clear, Normal Breath Sounds, Accessory Muscle Use Cardiovascular: Normal Peripheral Pulses, Systolic Murmur, Irregularly Irregular Peripheral Pulses: 2+ Radial Pulses (R), 2+ Radial Pulses (L) Skin: normal color, warm/dry Objective Exam Last Set of Vital Signs Vital Signs Date Time Temp Pulse Resp B/P (MAP) Pulse Ox O2 Delivery O2 Flow Rate FiO2 01/24/19 12:27 115 01/24/19 12:00 24 155/83 (107) 90 Nasal Cannula 2.50 01/24/19 08:00 36.3 01/20/19 08:00 95 Capillary Refill : Less Than 3 SecondsGreater Than 3 Seconds I&O Intake and Output 01/24/19 00:00 Intake Total 1510 ml Output Total 910 ml Balance 600 ml Intake Oral 0 ml IV Total 1510 ml Output Urine Total 910 ml General: Alert, Moderate Distress Lungs: Clear to Auscultation, Normal Air Movement Heart: Other (Heart rate irregularly irregular, systolic murmur) Abdomen: Soft Extremities: No Edema, No Tenderness/Swelling Psych/Mental Status: Other (Depressed, Dementia, Confusion) Other physical findings No calf tenderness Results Lab Laboratory Tests 01/23/19 13:48: Hemoglobin 8.6L, Hematocrit 29L, Sodium Level 143, Potassium Level 3.4L, Chloride Level 111H, Carbon Dioxide Level 20L, Anion Gap 12, Blood Urea Nitrogen 9, Creatinine 0.70, Estimat Glomerular Filtration Rate > 60, BUN/Creatinine Ratio 13, Glucose Level 83, Calcium Level 8.7, Magnesium Level 1.9 01/24/19 03:20: Hemoglobin 8.8L, Hematocrit 29L, Sodium Level 142, Potassium Level 3.0L, Chloride Level 110H, Carbon Dioxide Level 20L, Anion Gap 12, Blood Urea Nitrogen 9, Creatinine 0.67, Estimat Glomerular Filtration Rate > 60, BUN/Creatinine Ratio 13, Glucose Level 56*L, Calcium Level 8.6, Magnesium Level 1.9, White Blood Count 11.9H, Red Blood Count 3.24L, Mean Corpuscular Volume 90, Mean Corpuscular Hemoglobin 27, Mean Corpuscular Hemoglobin Concent 30L, Red Cell Distribution Width 14.9H, Platelet Count 218, Mean Platelet Volume 11.8H, Neutrophils (%) (Auto) 71, Lymphocytes (%) (Auto) 17, Monocytes (%) (Auto) 11, Eosinophils (%) (Auto) 1, Basophils (%) (Auto) 0, Neutrophils # (Auto) 8.4H, Lymphocytes # (Auto) 2.0, Monocytes # (Auto) 1.3H, Eosinophils # (Auto) 0.2, Basophils # (Auto) 0.0, Phosphorus Level 2.6, B-Type Natriuretic Peptide 313.4H Microbiology 01/18/19 Blood Culture - Preliminary, Resulted No growth 01/22/19 MRSA Screen - Final, Complete MRSA not isolated 01/22/19 Urine Culture - Preliminary, Resulted Culture In Progress Assessment/Plan Assessment/Plan Assess & Plan/Chief Complaint Assessment: Cellulitis Type 1 Diabetes Dementia Depression PVD A-fib with rapid ventricular rate Plan: Consult surgery for wound Consult cardiology for A fib management Manage diabetes with long acting insulin and insulin sliding scale Manage depression and dementia Pain management Clinical Quality Measures DVT/VTE Risk/Contraindication: Risk Factor Score Per Nursin RFS Level Per Nursing on Admit: 4+=Very High DULCE GALVEZ DO 01/24/19 2019: Subjective Subjective/Events-last exam Had episode of atrial fibrillation with RVR Cardizem drip converted back into normal sinus rhythm Just when I arrived at the bedside she started another episode of AF with RVR Dr. Aparicio consulted Aortic stenosis is moderate type Pt just overall has had progressive decline and that is what I have been updating the family on for the last 6 months and she is appearing to be more and more debilitated Does not appear to have any chance of ambulation gin order to go home of which the requires to be able to take care of her Reports pain is improved since the intervention on the right leg but still an issue Review of Systems Cardiovascular: Palpitations Objective Exam General: Alert, Moderate Distress, Other (frail, declined, frightened) Lungs: Clear to Auscultation Heart: Other (Heart rate irregularly irregular, systolic murmur) Assessment/Plan Assessment/Plan Assess & Plan/Chief Complaint Cardiology appreciated Monitor HR Cardizem drip Prognosis poor Diagnosis/Problems Diagnosis/Problems (1) Atrial fibrillation with rapid ventricular response (2) Cellulitis of right foot (3) Diabetes mellitus, insulin dependent (IDDM), controlled (4) Presbycusis of both ears (5) Myocardial infarct, old (6) Toe ulcer due to DM Status: Acute (7) Memory deficit (8) CVA (cerebral vascular accident) (9) PVD (peripheral vascular disease) Status: Chronic (10) Hypertension (11) Falls frequently (12) Hypothyroidism (13) NPH (normal pressure hydrocephalus) (14) Depression (15) Anxiety Supervisory-Addendum Brief Verification & Attestation Participated in pt care: history, MDM, physical Personally performed: exam, history, MDM, supervision of care Care discussed with: Medical Student Procedures: n/a Results interpretation: Verified all documentation Verification and Attestation of Medical Student E/M Service A medical student performed and documented this service in my presence. I reviewed and verified all information documented by the medical student and made modifications to such information, when appropriate. I personally performed the physical exam and medical decision making. Dulce Galvez, Jan 24, 2019,20:18 HERI SPAULDING Jan 24, 2019 12:52 DULCE HIDALGO DO Jan 24, 2019 20:19 POS
--- NOTE | 2019-01-24 13:12 | NUR ---
This nurse notified at 0844 of patients HR, EKG obtained. came to patients room, orders received. Will continue to monitor. 1054 this nurse updated on patients HR with cardizem drip @15mg/hr. No new orders received at this time.
--- NOTE | 2019-01-24 13:18 | Cardiology Progress Note ---
Cardiology SO Progress Note Subjective: Rapid atrial fibrillation Objective: I&O/Vital Signs 01/24/19 01/24/19 01/24/19 01/24/19 02:00 03:00 04:00 04:00 Pulse 101 90 94 Resp 21 15 16 B/P (MAP) 186/76 (112) 141/63 (89) Pulse Ox 93 93 92 O2 Delivery Nasal Cannula Nasal Cannula Nasal Cannula Nasal Cannula O2 Flow Rate 2.50 2.50 2.00 2.50 01/24/19 01/24/19 01/24/19 01/24/19 05:00 06:00 07:00 07:46 Pulse 101 105 109 110 Resp 17 25 20 B/P (MAP) 153/73 (99) 178/87 (117) 183/84 (117) Pulse Ox 92 92 90 O2 Delivery Nasal Cannula Nasal Cannula Nasal Cannula O2 Flow Rate 2.50 2.50 2.50 01/24/19 01/24/19 01/24/19 01/24/19 08:00 08:00 09:00 09:22 Temp 36.3 Pulse 109 135 147 Resp 18 27 B/P (MAP) 170/78 (108) 117/77 (90) 163/87 Pulse Ox 92 91 O2 Delivery Nasal Cannula Nasal Cannula Nasal Cannula O2 Flow Rate 2.00 2.50 2.50 01/24/19 01/24/19 01/24/19 01/24/19 10:00 10:15 11:00 12:00 Pulse 156 140 107 Resp 25 25 24 B/P (MAP) 144/92 (109) 154/102 (119) 155/83 (107) Pulse Ox 91 92 92 90 O2 Delivery Nasal Cannula Nasal Cannula Nasal Cannula Nasal Cannula O2 Flow Rate 2.50 3.00 2.50 2.50 01/24/19 12:27 Pulse 115 01/24/19 00:00 Intake Total 0 ml Output Total 730 ml Balance -730 ml Weight (Pounds): 156 Weight (Ounces): 1.4 Weight (Calculated Kilograms): 70.316909 Constitutional: appears stated age; No apparent distress; well-developed, well- nourished Respiratory: chest is bilaterally symmetric, lungs clear to auscultation Cardiovascular: irregularly irregular, tachycardia, S1 and S2, systolic murmur Gastrointestional: soft, audible bowel sounds; No spleenomegaly Extremities: normal range of motion, non-tender, normal inspection; No clubbing, No cyanosis; no lower extremity edema bilateral; No significant edema Neurologic/Psychiatric: alert, normal mood/affect Skin: normal color, warm/dry Results/Procedures: Labs Laboratory Tests 01/23/19 13:48: Hemoglobin 8.6L, Hematocrit 29L, Sodium Level 143, Potassium Level 3.4L, Ch loride Level 111H, Carbon Dioxide Level 20L, Anion Gap 12, Blood Urea Nitrogen 9, Creatinine 0.70, Estimat Glomerular Filtration Rate > 60, BUN/Creatinine Ratio 13, Glucose Level 83, Calcium Level 8.7, Magnesium Level 1.9 01/24/19 03:20: Hemoglobin 8.8L, Hematocrit 29L, Sodium Level 142, Potassium Level 3.0L, Chloride Level 110H, Carbon Dioxide Level 20L, Anion Gap 12, Blood Urea Nitrogen 9, Creatinine 0.67, Estimat Glomerular Filtration Rate > 60, BUN/Creatinine Ratio 13, Glucose Level 56*L, Calcium Level 8.6, Magnesium Level 1.9, White Blood Count 11.9H, Red Blood Count 3.24L, Mean Corpuscular Volume 90, Mean Corpuscular Hemoglobin 27, Mean Corpuscular Hemoglobin Concent 30L, Red Cell Distribution Width 14.9H, Platelet Count 218, Mean Platelet Volume 11.8H, Neutrophils (%) (Auto) 71, Lymphocytes (%) (Auto) 17, Monocytes (%) (Auto) 11, Eosinophils (%) (Auto) 1, Basophils (%) (Auto) 0, Neutrophils # (Auto) 8.4H, Lymphocytes # (Auto) 2.0, Monocytes # (Auto) 1.3H, Eosinophils # (Auto) 0.2, Basophils # (Auto) 0.0, Phosphorus Level 2.6, B-Type Natriuretic Peptide 313.4H Microbiology 01/18/19 Blood Culture - Preliminary, Resulted No growth 01/22/19 MRSA Screen - Final, Complete MRSA not isolated 01/22/19 Urine Culture - Preliminary, Resulted Culture In Progress A/P: Assessment/Dx: Critical limb ischemia, Systolic murmur, Right foot cellulitis. Atrial fibrillation with rapid ventricular rate Plan: Critical limb ischemia, arterial ultrasound shows significant disease in the distal right SFA and possibility of no flow below the right knee. Severe disease in the left lower extremity as well. Peripheral angiogram 01/21/2019 with occluded right SFA. 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 At least 2 vessel runoff below the knee. Aspirin and Plavix. Get old records from [facility]. Systolic murmur, echocardiogram. Atrial fibrillation with rapid ventricular rate, start IV Cardizem. Will discuss with the patient's and usp about possibility of starting oral anticoagulation therapy. Risk of bleeding since the patient will also be on aspirin and Plavix. Therefore oral anticoagulation therapy may not be the best option. Right foot cellulitis. IV antibiotics, deferred to Dr. Velarde and Dr. Amos. Thank you for your consultation. Please call me if you have any questions. William Aparicio MD, FACP, FACC, FSCAI, FHRS, CCDS Interventional Cardiology Cardiac Electrophysiology Vascular Medicine and Endovascular Interventions Zeke APARICIO MD Jan 24, 2019 1:18 pm POS
[2019-01-24] MEDS ORDERED: DILTIAZEM 120 MG (CARDIZEM CD) CAP PO ONE (14:50)
[2019-01-24] MEDS: DILTIAZEM 120 MG (CARDIZEM CD) CAP PO SCH (14:57)
--- NOTE | 2019-01-24 15:59 | NUR ---
"RD ASSESSMENT PMHx: dementia; CAD; HTN; DM; hypercholesterolemia; TIA; hypothyroidism PT INTERACTION: Pt was awake and pleasant during nutrition assessment. Note pt has AMS and is a poor historian. Per RN and chart review, pt has been eating poorly, consuming avg of <25% meals x3d. Pt has had no issues with nausea or vomiting, per RN. Note pt has wound between right 4th and 5th toe, and decubitus ulcer on right heel, per chart review. ABNORMAL NUTRITION-RELATED LAB VALUES: K 3.0 (L); glu 56 (L); Cl 110 (H) Est. kcal needs: 8518-0058 kcal (20-25 kcal/kg) Est. Pro needs: 84-98 g Pro (1.2-1.4 g Pro/kg) PES STATEMENT: Inadequate oral intake (NI-2.1) related to loss of appetite | AMS as evidenced by pt (RN) interview Inadequate protein intake (NI-5.6.1) related to increased protein needs as evidenced by wounds (right foot toes and right heel) INTERVENTION: Continue with current diet order of CHO 60g/m 1snack diet. Add Ensure Enlive (vary) to meals TID. Provides 350 kcal and 20 g Pro per serving, for perceived benefit to wound healing. MONITOR/EVALUATE: PO Intake; Plan of Care; Hydration Status; Weight Status; Lab Values Daniel Bowman, MS, RD, LD Ext. 133"
--- NOTE | 2019-01-24 16:14 | Pulmonary Consultation ---
History of Present Illness History of Present Illness Date of Consultation 01/24/19 16:11 Date of Admission Allergies and Home Medications Allergies Coded Allergies: hydromorphone (Verified Allergy, Severe, 01/18/19) MAKES HER " CRAZY" PER HER amoxicillin (Verified Allergy, Mild, 01/18/19) HUSBNAD STATES " SHE CANNOT SLEEP" morphine (Verified Allergy, Mild, 01/18/19) MAKES HER "CRAZY" PER HER Home Medications Acetaminophen 325 Mg Tablet, 325 MG PO Q6H PRN for PAIN-MILD, (Reported) Aspirin 81 Mg Tablet.dr, 81 MG PO DAILY, (Reported) Carboxymethyl/Glycerin/Poly80 10 Ml Drops, 1 DROP OU QID, (Reported) Cefepime HCl 2 Gm Vial, 2 GM IV DAILY, (Reported) START DATE 01-15-19 END DATE 01-25-19 Clopidogrel Bisulfate 75 Mg Tablet, 75 MG PO DAILY, (Reported) Collagenase 30 Gm Oint..gm., TP DAILY, (Reported) APPLY TO RIGHT 4TH TOE Dextrose 33 Gm Gel.packet, 33 GM PO UD PRN for BLOOD SUGAR <70, (Reported) Eyelid Cleanser Combination #5 1 Each Med..pad, 1 EACH TOP MoFr, (Reported) APPLY TO EACH EYE TOPICALLY Furosemide 40 Mg Tablet, 40 MG PO DAILY, (Reported) Gabapentin 300 Mg Capsule, 300 MG PO TID, (Reported) Hydrocodone/Acetaminophen 1 Each Tablet, 1 TAB PO Q4H PRN for PAIN-MODERATE, (Reported) Insulin Aspart 300 Units/3 Ml Solution, SQ TID, (Reported) 0-99 = 0 100-199 = 4 UNITS 200-299 = 5 UNITS 300-399 = 6 UNITS 400-499 = 7 UNITS 500-599 = 8 UNITS >600 CALL PCP Insulin Glargine,Hum.rec.anlog 100 Unit/1 Ml Vial, 7 UNITS SC BID, (Reported) Levothyroxine Sodium 112 Mcg Tablet, 112 MCG PO DAILY, (Reported) Melatonin 3 Mg Tablet, 3 MG PO HS PRN for SLEEP, (Reported) Methyl Salicylate/Menthol 1 Each Adh..patch, 1 PATCH TP DAILY, (Reported) APPLY TO RIGHT FOOT Sennosides/Docusate Sodium 1 Each Tablet, 1 TAB PO Q12H PRN for CONSTIPATION-6TH LINE, (Reported) Simvastatin 40 Mg Tablet, 40 MG PO DAILY, (Reported) Past Ktnidkh-Ctcmvd-Eceazd Hx Past Med/Social Hx: Reviewed Nursing Past Med/Soc Hx, Reviewed and Corrections made Patient Social History Alcohol Use: Denies Use Recreational Drug Use: No Smoking Status: Never a Smoker Recent Foreign Travel: No Contact w/Someone Who Travel: No Recent Infectious Disease Expo: No Recent Hopitalizations: No Immunizations Up To Date PED Vaccines UTD: No Date of Pneumonia Vaccine: Sep 10, 2016 Seasonal Allergies Seasonal Allergies: Yes Past Medical History Orthopedic, Vascular Surgery Respiratory: No Currently Using CPAP: No Currently Using BIPAP: No Cardiac: Yes Coronary Artery Disease, High Cholesterol, Hypertension, Peripheral Vascular Dementia, Neuropathy, Stroke, TIA : No Genitourinary: Yes Bladder Infection Gastrointestinal: No Musculoskeletal: Yes Foot Drop, Spasms Endocrine: Yes Diabetes, Insulin dep, Hypothyroidsim Are Your Blood Sugars Over 250: Yes HEENT: Yes (LOSS OF PERIPHERAL VISION) Hearing Impairment: Hard of Hearing Cancer: No Psychosocial: Yes Depression Integumentary: No Blood Disorders: No Family Medical History Cardiovascular disease 19 FATHER Diabetes mellitus 19 FATHER Headache disorder 19 MOTHER Heart Disease, Diabetes, Migraines Sepsis Event Evaluation Height, Weight, BMI Height: 5'2.00" Weight: 156lbs. 1.4oz. 70.637152am; 30.00 BMI Method: Exam Exam Vital Signs Date Time Temp Pulse Resp B/P (MAP) Pulse Ox O2 Delivery O2 Flow Rate FiO2 01/24/19 15:00 98 18 129/56 (80) 94 Nasal Cannula 2.50 01/24/19 14:00 98 17 122/55 (77) 95 Nasal Cannula 2.50 01/24/19 14:00 96 Nasal Cannula 3.00 01/24/19 13:00 105 18 127/59 (81) 94 Nasal Cannula 2.50 01/24/19 12:27 115 01/24/19 12:00 Nasal Cannula 2.00 01/24/19 12:00 107 24 155/83 (107) 90 Nasal Cannula 2.50 01/24/19 11:00 140 25 154/102 (119) 92 Nasal Cannula 2.50 01/24/19 10:15 92 Nasal Cannula 3.00 01/24/19 10:00 156 25 144/92 (109) 91 Nasal Cannula 2.50 01/24/19 09:22 147 163/87 01/24/19 09:00 135 27 117/77 (90) 91 Nasal Cannula 2.50 01/24/19 08:00 36.3 109 18 170/78 (108) 92 Nasal Cannula 2.50 01/24/19 08:00 Nasal Cannula 2.00 01/24/19 07:46 110 20 183/84 (117) 90 Nasal Cannula 2.50 01/24/19 07:00 109 01/24/19 06:00 105 25 178/87 (117) 92 Nasal Cannula 2.50 01/24/19 05:00 101 17 153/73 (99) 92 Nasal Cannula 2.50 01/24/19 04:00 94 16 92 Nasal Cannula 2.50 01/24/19 04:00 Nasal Cannula 2.00 01/24/19 03:00 90 15 141/63 (89) 93 Nasal Cannula 2.50 01/24/19 02:00 101 21 186/76 (112) 93 Nasal Cannula 2.50 01/24/19 01:04 98 01/24/19 01:00 103 19 152/64 (93) 93 Nasal Cannula 2.50 01/24/19 00:00 109 17 161/78 (105) 91 Nasal Cannula 2.50 01/24/19 00:00 Nasal Cannula 2.00 01/23/19 23:00 106 21 162/75 (104) 92 Nasal Cannula 2.50 01/23/19 22:00 100 17 161/68 (99) 93 Nasal Cannula 2.50 01/23/19 21:00 102 18 163/67 (99) 94 Nasal Cannula 2.50 01/23/19 20:00 107 21 191/89 (123) 94 Nasal Cannula 2.50 01/23/19 20:00 Nasal Cannula 2.00 01/23/19 20:00 37.3 01/23/19 19:00 104 01/23/19 19:00 101 21 194/79 (117) 94 Nasal Cannula 2.50 01/23/19 18:00 103 20 196/78 (117) 95 Nasal Cannula 0.50 01/23/19 17:00 99 22 169/68 (101) 95 Nasal Cannula 0.50 I & O 01/24/19 07:00 Intake Total 1000 ml Output Total 1310 ml Balance -310 ml Height & Weight Height: 5'2.00" Weight: 156lbs. 1.4oz. 70.954155zq; 30.00 BMI Method: General Appearance: Chronically ill, Moderate Distress Neck: Full Range of Motion, Normal Inspection Respiratory: Chest Non Tender, Lungs Clear, Normal Breath Sounds, Accessory Muscle Use Cardiovascular: Normal Peripheral Pulses, Systolic Murmur, Irregularly Irregular Capillary Refill: Greater Than 3 Seconds Peripheral Pulses: 2+ Radial Pulses (R), 2+ Radial Pulses (L) Gastrointestinal: soft Extremity: No Calf Tenderness, Other (Ulcer on right foot ) Neurologic/Psychiatric: Alert; No Oriented x3 (x2); Depressed Affect, Other (Dementia) Skin: Normal Color, Warm/Dry Lymphatic: No Adenopathy Results Lab Laboratory Tests 01/23/19 03:13 01/23/19 13:48 01/24/19 03:20 Assessment/Plan Assessment/Plan Worsening SOB with bilateral wheezing -Add solumedrol -Lasix 40mg IV X 1 Hypokalemia -replace Status post stenting of the right SFA Cellulitis -continue Abx IDDM Dementia Depression PVD A-fib with rapid ventricular rate -Cardiology following LON PATTERSON DO Jan 24, 2019 16:14 POS
[2019-01-24 16:20] LABS: ALANINE AMINOTRANSFERASE 14 U/L (0-55); ALBUMIN 2.9 GM/DL (3.2-4.5); ALKALINE PHOSPHATASE 146 U/L (40-136); BILIRUBIN,TOTAL 0.4 MG/DL (0.1-1.0); BUN/CREATININE RATIO 15; CALCIUM 8.9 MG/DL (8.5-10.1); CARBON DIOXIDE 20 MMOL/L (21-32); CHLORIDE 102 MMOL/L (98-107); CREATININE SERUM 0.79 MG/DL (0.60-1.30); GFR ESTIMATED > 60; GLUCOSE 294 MG/DL (70-105); POTASSIUM 3.7 MMOL/L (3.6-5.0); SODIUM 137 MMOL/L (135-145); TOTAL PROTEIN 6.2 GM/DL (6.4-8.2)
[2019-01-24] MEDS: ENOXAPARIN 40 MG/0.4 ML (LOVENOX) SYR SC SCH (17:02)
[2019-01-24] MEDS: SERTRALINE 50 MG (ZOLOFT) TABLET PO SCH (20:29)
[2019-01-25] VITALS (12 sets, daily range): BP systolic 128–178; BP diastolic 52–79
[2019-01-25] MEDS: methylPREDNISolone 40 MG/ML (Solu-MEDROL) VIAL IV SCH (00:49)
[2019-01-25 03:22] LABS: BASOPHILS % (AUTO) 0 % (0-10); EOSINOPHILS % (AUTO) 0 % (0-10); HEMATOCRIT 30 % (35-52); HEMOGLOBIN 9.5 G/DL (11.5-16.0); LYMPHOCYTES # (AUTO) 0.6 X 10^3 (1.0-4.0); LYMPHOCYTES % (AUTO) 5 % (12-44); MEAN CORPUSCULAR HEMOGLOBIN 28 PG (25-34); MEAN CORPUSCULAR HGB CONC 32 G/DL (32-36); MEAN CORPUSCULAR VOLUME 88 FL (80-99); MONOCYTES # (AUTO) 0.3 X 10^3 (0.0-1.0); MONOCYTES % (AUTO) 2 % (0-12); NEUTROPHILS # (AUTO) 12.2 X 10^3 (1.8-7.8); NEUTROPHILS % (AUTO) 93 % (42-75); PLATELET COUNT 265 10^3/uL (130-400); RED CELL DISTRIBUTION WIDTH 14.3 % (10.0-14.5); WHITE BLOOD COUNT 13.1 10^3/uL (4.3-11.0)
[2019-01-25 03:42] LABS: BUN/CREATININE RATIO 22; CALCIUM 9.2 MG/DL (8.5-10.1); CARBON DIOXIDE 21 MMOL/L (21-32); CHLORIDE 105 MMOL/L (98-107); CREATININE SERUM 0.82 MG/DL (0.60-1.30); GFR ESTIMATED > 60; GLUCOSE 350 MG/DL (70-105); PHOSPHORUS 2.8 MG/DL (2.3-4.7); POTASSIUM 3.6 MMOL/L (3.6-5.0); SODIUM 141 MMOL/L (135-145)
[2019-01-25] MEDS ORDERED: FLUCONAZOLE 200 MG/100 ML 100 ML IV ONE (04:15)
[2019-01-25] MEDS ORDERED: KCL 20 MEQ TAB (K-DUR) PO ONE (04:15)
[2019-01-25] MEDS ORDERED: FUROSEMIDE 40 MG/4 ML INJ (LASIX) ONE (05:39)
[2019-01-25] MEDS: POTASSIUM CL 10MEQ/50ML IVPB 50 ML IV SCH ×4 (05:47→07:53)
[2019-01-25] MEDS: LEVOTHYROXINE 112 MCG (LEVOTHROID) TAB PO SCH (05:53)
[2019-01-25] MEDS: inSUlin ASPART (NovoLOG) 1 UNIT/0.01 ML (CHARGE PER UNIT) SC SCH ×3 (05:53→17:12)
--- NOTE | 2019-01-25 05:55 | NUR ---
pulled [address] powers ordered it for the same time as the other new orders. lasix due at 0900. vial I pulled returned to [facility].
[2019-01-25] MEDS: RT-ALBUTEROL/IPRATROPIUM 3 ML (DUONEB) VIAL INH SCH ×5 (06:34→22:09)
--- NOTE | 2019-01-25 07:55 | Diagnostic Imaging Report ---
INDICATION: Dyspnea. COMPARISON STUDY: Chest from yesterday. FINDINGS: Frontal view of the chest demonstrates diffuse bilateral infiltrates that have improved. These are greatest centrally and may be due to edema. The heart size is normal. Small bilateral pleural effusions are unchanged. Postoperative changes present in the neck. Bilateral tubes overlie the chest consistent with ventriculoperitoneal shunts. There is calcification of the aorta. IMPRESSION: Improving pulmonary infiltrates. These may be secondary to edema. Small bilateral effusions are unchanged. Dictated by: Dictated on workstation # [id number]
--- NOTE | 2019-01-25 08:00 | NUR ---
This nurse called SB[facility] Report to Yadi MURPHY on 4th floor. Pt transferred via bed to room 418.
--- NOTE | 2019-01-25 08:02 | Progress Note ---
HERI SPAULDING [facility] 01/25/19 0802: Subjective Date Seen by a Provider: Jan 25, 2019 Time Seen by a Provider: 06:52 Subjective/Events-last exam Pt states her leg has been less painful recently. She appears to be feeling better today with a pulse of 112 when I was in the room, and not currently in A-fib She states she would like to go home today. She is confused why she is still in the hospital and does not remember having the A-fib with RvR yesterday. She denies a headache, chest pain, palpitations, nausea, vomiting, abdominal pain, shortness of breath, and says she cough sometimes. Review of Systems General: No Chills, No Fatigue HEENT: No Head Aches Pulmonary: No Dyspnea, No Cough Cardiovascular: No: Chest Pain, Palpitations Gastrointestinal: No: Nausea, Vomiting, Abdominal Pain Musculoskeletal: leg pain (Improving), foot pain (Improving) Neurological: Confusion Focused Exam Respiratory: Chest Non Tender, Lungs Clear, Normal Breath Sounds, No Respiratory Distress Cardiovascular: Regular Rate, Rhythm, No Murmur, Normal Peripheral Pulses Peripheral Pulses: 2+ Radial Pulses (R), 2+ Radial Pulses (L) Skin: normal color, warm/dry Objective Exam Last Set of Vital Signs Vital Signs Date Time Temp Pulse Resp B/P (MAP) Pulse Ox O2 Delivery O2 Flow Rate FiO2 01/25/19 07:00 112 01/25/19 06:34 94 Nasal Cannula 1.00 01/25/19 06:00 23 177/75 (109) 01/24/19 20:00 36.6 01/20/19 08:00 95 Capillary Refill : Less Than 3 SecondsGreater Than 3 Seconds I&O Intake and Output 01/25/19 00:00 Intake Total 2075 ml Output Total 3630 ml Balance -1555 ml Intake Oral 600 ml IV Total 1475 ml Output Urine Total 3630 ml General: Alert, Mild Distress Lungs: Clear to Auscultation, Normal Air Movement Heart: Regular Rate, No Murmurs Extremities: No Edema, Normal Pulses, No Tenderness/Swelling Psych/Mental Status: Other (Dementia, Depressed, Confusion) Results Lab Laboratory Tests 01/24/19 15:50: Sodium Level 137, Potassium Level 3.7, Chloride Level 102, Carbon Dioxide Level 20L, Anion Gap 15H, Blood Urea Nitrogen 12, Creatinine 0.79, Estimat Glomerular Filtration Rate > 60, BUN/Creatinine Ratio 15, Glucose Level 294H, Calcium Level 8.9, Corrected Calcium 9.8, Total Bilirubin 0.4, Aspartate Amino Transf (AST/SGOT) 20, Alanine Aminotransferase (ALT/SGPT) 14, Alkaline Phosphatase 146H , Total Protein 6.2L, Albumin 2.9L 01/24/19 16:33: Glucometer 310H 01/24/19 20:30: Glucometer 270H 01/25/19 03:10: Sodium Level 141, Potassium Level 3.6, Chloride Level 105, Carbon Dioxide Level 21, Anion Gap 15H, Blood Urea Nitrogen 18, Creatinine 0.82, Estimat Glomerular Filtration Rate > 60, BUN/Creatinine Ratio 22, Glucose Level 350H, Calcium Level 9.2, White Blood Count 13.1H, Red Blood Count 3.44L, Hemoglobin 9.5L, Hematocrit 30L, Mean Corpuscular Volume 88, Mean Corpuscular Hemoglobin 28, Mean Corpuscular Hemoglobin Concent 32, Red Cell Distribution Width 14.3, Platelet Count 265, Mean Platelet Volume 12.0H, Neutrophils (%) (Auto) 93H, Lymphocytes (%) (Auto) 5L, Monocytes (%) (Auto) 2, Eosinophils (%) (Auto) 0, Basophils (%) (Auto) 0, Neutrophils # (Auto) 12.2H, Lymphocytes # (Auto) 0.6L, Monocytes # (Auto) 0.3, Eosinophils # (Auto) 0.0, Basophils # (Auto) 0.0, Phosphorus Level 2.8, Magnesium Level 2.0 Microbiology 01/18/19 Blood Culture - Final, Complete No growth 01/22/19 MRSA Screen - Final, Complete MRSA not isolated 01/22/19 Urine Culture - Preliminary, Resulted Eve glabrata Assessment/Plan Assessment/Plan Assess & Plan/Chief Complaint Assessment: Cellulitis Type 1 Diabetes Dementia Depression PVD Hx A-fib with rapid ventricular rate Tachycardia Plan: Consult surgery for wound Consult cardiology for A fib/Tachycardia management Manage diabetes with long acting insulin and insulin sliding scale Manage depression and dementia Pain management Clinical Quality Measures DVT/VTE Risk/Contraindication: Risk Factor Score Per Nursin RFS Level Per Nursing on Admit: 4+=Very High DULCE GALVEZ DO 01/25/19 0916: Subjective Subjective/Events-last exam Patient still very confused Awake and alert Physical therapy and occupational therapy will be ordered Catheter will be discontinued Still tachycardic at 110 but regular Very complex case Review of Systems Musculoskeletal: leg pain (Improving), foot pain (Improving) Objective Exam General: Alert, Cooperative, No Acute Distress, Other (confused poor recall) Lungs: Clear to Auscultation, Normal Air Movement Heart: Other (tachycardic with murmur) Assessment/Plan Assessment/Plan Assess & Plan/Chief Complaint Assessment: AF with RVR Right diabetic foot ulcer PVD status post intervention last week Dementia Chronic debility requiring long-term placement permanently Plan: Discontinue catheter PT/OT Monitor closely Diagnosis/Problems Diagnosis/Problems (1) Atrial fibrillation with rapid ventricular response (2) Diabetes mellitus, insulin dependent (IDDM), controlled (3) Presbycusis of both ears (4) Toe ulcer due to DM Status: Acute (5) Cellulitis of right foot (6) Memory deficit (7) Falls frequently (8) Hypertension (9) PVD (peripheral vascular disease) Status: Chronic Supervisory-Addendum Brief Verification & Attestation Participated in pt care: history, MDM, physical Personally performed: exam, history, MDM, supervision of care Care discussed with: Medical Student Procedures: n/a Results interpretation: Verified all documentation Verification and Attestation of Medical Student E/M Service A medical student performed and documented this service in my presence. I reviewed and verified all information documented by the medical student and made modifications to such information, when appropriate. I personally performed the physical exam and medical decision making. Dulce Galvez, Jan 25, 2019,09:16 HERI SPAULDING [facility] Jan 25, 2019 08:02 DULCE HIDALGO DO Jan 25, 2019 09:16 POS
--- NOTE | 2019-01-25 08:10 | NUR ---
Pt transferred from ICU to room 418 at this time. Pt oriented to room, call light within reach. Pt resting with eyes closed, reports needs met at this time.
[2019-01-25 08:15] LABS: BAND NEUTROPHILS 3 %; BASOPHILS % (MANUAL) 0 %; EOSINOPHILS % (MANUAL) 0 %; LYMPHOCYTES % (MANUAL) 4 %; MONOCYTES % (MANUAL) 1 %; NEUTROPHILS % (MANUAL) 92 %
[2019-01-25 08:16] LABS: POLYCHROMASIA SLIGHT; TARGET CELLS SLIGHT; TOXIC GRANULATION/VACUOLAZATIO 1+
[2019-01-25] MEDS ORDERED: FUROSEMIDE 40 MG/4 ML INJ (LASIX) IVP SCH (09:00)
[2019-01-25] MEDS: GABAPENTIN 300 MG (NEURONTIN) CAP PO SCH ×3 (10:11→21:33)
[2019-01-25] MEDS: CLOPIDOGREL 75 MG (PLAVIX) TABLET PO SCH (10:11)
[2019-01-25] MEDS: ASPIRIN E.C. 81 MG (ECOTRIN) TAB PO SCH (10:12)
[2019-01-25] MEDS: SIMvastatin 40 MG (ZOCOR) TAB PO SCH (10:12)
[2019-01-25] MEDS: ARTIFICAL TEARS 0.4 ML UNIT DOSE (REFRESH PLUS) OU SCH ×4 (10:12→21:33)
[2019-01-25] MEDS: CEFDINIR 300 MG (OMNICEF) CAP PO SCH ×2 (10:12→21:33)
[2019-01-25] MEDS: DILTIAZEM 120 MG (CARDIZEM CD) CAP PO SCH (10:12)
[2019-01-25] MEDS: LIDOCAINE 4% (SALONPAS) PATCH TOP SCH (10:26)
--- NOTE | 2019-01-25 11:56 | Occupational Therapy Eval ---
OT Evaluation-General/PLF Medical Diagnosis Admission Date Jan 18, 2019 at 17:05 Medical Diagnosis: right foot cellulitis Onset Date: Jan 18, 2019 Therapy Diagnosis Therapy Diagnosis: impaired self care skills Height/Weight Height (Feet): 5 Height (Inches): 2.00 Weight (Pounds): 156 Weight (Ounces): 1.4 Precautions Precautions/Isolations: Fall Prevention, Standard Precautions, Pressure Ulcer Safety Interventions: Bed Exit Alarm Medical History Pertinent Medical History: CVA, DM Additional Medical History CAD, high cholesterol, HTN, PVD, dementia, neuropathy, stroke, foot drop, hypothyroidism, TEJON, depression Current History pt admitted with right foot cellulitis Reviewed History: Yes Social History Home: Senior Living ADL-Prior Level of Function SCALE: Activities may be completed with or without assistive devices. 6-Vbioqkfplq-ritwpvn completes the activity by him/herself with no assistance from a helper. 5-Set-up or Clean-up Assistance-helper sets up or cleans up; patient completes activity. [place] assists only prior to or following the activity. 4-Supervision or Touching Assistance-helper provides verbal cues and/or touching/steadying and/or contact guard assistance as patient completes activit y. Assistance may be provided throughout the activity or intermittently. 3-Partial/Moderate Assistance-helper does LESS THAN HALF the effort. [place] lifts, holds or supports trunk or limbs, but provides less than half the effort. 2-Substantial/Maximal Assistance-helper does MORE THAN HALF the effort. [place] lifts or holds trunk or limbs and provides more than half the effort. 0-Adyxunahn-unymiz does ALL the effort. Patient does none of the effort to complete the activity. Or, the assistance of 2 or more helpers is required for the patient to complete the activity. If activity was not attempted, code reason: 7-Patient Refused. 9-Not Applicable-not attempted and the patient did not perform the activity before the current illness, exacerbation or injury. 10-Not Attempted due to Environmental Limitations-(lack of equipment, weather restraints, etc.). 88-Not Attempted due to Medical Conditions or Safety Concerns. ADL PLOF Comments Pt unable to provide information regarding PLOF. Self Care: Unknown Functional Cognition: Unknown OT Current Status Subjective Pt in bed, agrees to therapy. Pt reports pain in right foot, but does not rate. Mental Status/Objective Patient Orientation: Person Attachments: Arredondo Catheter, Oxygen Current Glasses/Contacts: Yes Hand Dominance: Right Upper Extremity ROM Grossly WFL Upper Extremity Coordination Fair Upper Extremity Strength decreased bilaterally ADL-Treatment ADL-Current Pt declined to attempt sitting EOB at this time. Grooming tasks completed while sitting up in bed. Pt washed face with SBA and increased time. Pt able to comb sides of hair, but required assist to comb back of head. Pt resting in bed with needs met after session. Education OT Patient Education: Rehab process Teaching Recipient: Patient Teaching Methods: Discussion Response to Teaching: Reinforcement Needed OT Short Term Goals Short Term Goals 1=Demonstrate adherence to instructed precautions during ADL tasks. 2=Patient will verbalize/demonstrate understanding of assistive devices/modifications for ADL. 3=Patient will improve strength/tolerance for activity to enable patient to perform ADL's. OT Supervisor [employer] Goals Nursing Home Goals Time Frame: Feb 08, 2019 Eating (QC): 5 Oral Hygiene (QC): 4 Upper Body Dressing (QC): 4 Lower Body Dressing (QC): 3 Toileting Hygiene (QC): 3 Toilet/Commode Transfer (QC): 3 Additional Goals: 1-Demonstrate ADL Tasks, 2-Verbalize Understanding, 3-ImproveStrength/Anjali 1=Demonstrate adherence to instructed precautions during ADL tasks. 2=Patient will verbalize/demonstrate understanding of assistive devices/modifications for ADL. 3=Patient will improve strength/tolerance for activity to enable patient to perf orm ADL's. OT Education/Plan Problem List/Assessment Assessment: Decreased Activ Tolerance, Decreased Safety Aware, Decreased UE Strength, Dependent Transfers, Impaired Coordination, Impaired Funct Balance, Impaired I ADL's, Impaired Self-Care Skills Pt to benefit from skilled OT intervention for ADL training, transfers, and strengthening to increase level of independence and allow safe discharge plan. Discharge Recommendations Plan/Recommendations: Continue POC Treatment Plan/Plan of Care Treatment,Training & Education: Yes Patient would benefit from OT for education, treatment and training to promote independence in ADL's, mobility, safety and/or upper extremity function for ADL's. Plan of Care: ADL Retraining, Functional Mobility, UE Funct Exercise/Act Treatment Duration: Feb 08, 2019 Frequency: 5 times per week Estimated Hrs Per Day: .25 hour per day Rehab Potential: Fair Time/GCodes Start Time: 10:47 Stop Time: 11:00 Total Time Billed (hr/min): 13 Billed Treatment Time 1 visit, EVM(13minutes) DILLAN JOYCE OT Jan 25, 2019 11:56 POS
--- NOTE | 2019-01-25 12:10 | Physical Therapy Evaluation ---
PT Evaluation-General Medical Diagnosis Admission Date Jan 18, 2019 at 17:05 Medical Diagnosis: R foot cellulitis Onset Date: Jan 18, 2019 Therapy Diagnosis Therapy Diagnosis: weakness Height/Weight Height (Feet): 5 Height (Inches): 2.00 Weight (Pounds): 156 Weight (Ounces): 1.4 Precautions Precautions/Isolations: Fall Prevention, Standard Precautions, Pressure Ulcer Weight Bear Status Right Lower Extremity: Right Full Weight Bearing Left Lower Extremity: Left Full Weight Bearing Referral Physician: Syd Reason for Referral: Evaluation/Treatment Medical History Pertinent Medical History: CAD, CVA, DM, Dementia, Neuropathy, PVD Current History [facility] Currently lives in care home. Reviewed History: Yes Social History Home: [facility] Prior Prior Level of Function SCALE: Activities may be completed with or without assistive devices. 1-Ustpcbcyac-rpvmboi completes the activity by him/herself with no assistance from a helper. 5-Set-up or Clean-up Assistance-helper sets up or cleans up; patient completes activity. [place] assists only prior to or following the activity. 4-Supervision or Touching Assistance-helper provides verbal cues and/or touching/steadying and/or contact guard assistance as patient completes activity. Assistance may be provided throughout the activity or intermittently. 3-Partial/Moderate Assistance-helper does LESS THAN HALF the effort. [place] lifts, holds or supports trunk or limbs, but provides less than half the effort. 2-Substantial/Maximal Assistance-helper does MORE THAN HALF the effort. [place] lifts or holds trunk or limbs and provides more than half the effort. 6-Jlmptivdo-mcwwys does ALL the effort. Patient does none of the effort to complete the activity. Or, the assistance of 2 or more helpers is required for the patient to complete the activity. If activity was not attempted, code reason: 7-Patient Refused. 9-Not Applicable-not attempted and the patient did not perform the activity before the current illness, exacerbation or injury. 10-Not Attempted due to Environmental Limitations-(lack of equipment, weather restraints, etc.). 88-Not Attempted due to Medical Conditions or Safety Concerns. Bed Mobility: 4 Transfers (B,C,W/C): 4 PT Evaluation-Current Subjective Patient agrees to PT at this time. Patient has difficulty hearing and understanding instructions. Pain Numeric Pain Scale: 5-Moderate Pain Location: Right Location Body Site: Foot Pain Description: Acute Objective Patient Orientation: Confused Problem Solving: Fair Attachments: Oxygen, Arredondo Catheter ROM/Strength ROM Lower Extremities WFL Strength Lower Extremities Grossly 3/5 Integumentary/Posture Integumentary See nursing notes Bowel Incontinence: No Bladder Incontinence: Yes Posture WFL Neuromuscular (Tone, Coordination, Reflexes) Grossly intact Sensory Vision: Functional Hearing: Functional Transfers Roll Left to Right (QC): 3 Lying to Sitting/Side of Bed(Q: 2 Sit to Stand (QC): 2 Chair/Mfq-ld-Kfplu Xfer(QC): 2 unable to utilize FWW for transfers due to weakness/confusion requiring PT to perform task Gait Does the Patient Walk?: No and Walking Goal NOT indicated Wheelchair Training Does the Pt Use a Wheelchair?: Yes Balance Sitting Static: Normal Sitting Dynamic: Normal Standing Static: Normal Standing Dynamic: Normal Treatment Supine EX: ankle pumps, SLR Assessment/Needs Patient demonstrated difficulty hearing and understanding instructions for exercises and bed mobility. Required assistance to roll to side, move legs off edge of bed, and sit up upper body at EOB. Patient able to stand with assistance and walker but unable to take steps. Max assist required to transfer patient from EOB to chair. Patient positioned in chair with legs up and pillow under legs to raise heels. Rehab Potential: Fair PT [facility] Goals [facility] Goals PT [facility] Goals Time Frame: Feb 04, 2019 Sit to Lying (QC): 4 Lying-Sitting on Side/Bed(QC): 4 Sit to Stand (QC): 4 Roll Left to Right (QC): 4 Chair/Lrb-kt-Xmixt Xfer(QC): 4 Does the Patient Walk: No and Walking Goal NOT indicated PT Plan Problem List Problem List: Activity Tolerance, Functional Strength, Safety, Balance, Gait, Transfer, Bed Mobility Treatment/Plan Treatment Plan: Continue Plan of Care Treatment Plan: Bed Mobility, Education, Functional Activity Anjali, Functional Strength, Safety, Therapeutic Exercise, Transfers Treatment Duration: Feb 04, 2019 Frequency: 11 times per week Estimated Hrs Per Day: .5 hour per day Patient and/or Family Agrees t: Yes Time/GCodes Time In: 1115 Time Out: 1137 Total Billed Treatment Time: 22 Total Billed Treatment 1 visit EVM 22min SONIA DAN PT Jan 25, 2019 12:10 POS
--- NOTE | 2019-01-25 15:27 | Cardiology Progress Note ---
Cardiology SOAP Progress Note Subjective: Denies any active cardiac complaints. Objective: I&O/Vital Signs 01/25/19 01/25/19 01/25/19 01/25/19 04:00 04:00 05:00 06:00 Pulse 93 98 105 Resp 18 20 23 B/P (MAP) 151/58 (89) 162/66 (98) 177/75 (109) Pulse Ox 93 93 92 O2 Delivery Nasal Cannula Nasal Cannula Nasal Cannula Nasal Cannula O2 Flow Rate 2.50 2.00 2.50 2.50 01/25/19 01/25/19 01/25/19 01/25/19 06:34 07:00 08:00 09:00 Temp 37.0 Pulse 112 107 107 Resp 18 B/P (MAP) 178/69 (105) 167/74 (105) Pulse Ox 94 93 93 O2 Delivery Nasal Cannula Nasal Cannula Nasal Cannula O2 Flow Rate 1.00 2.50 2.50 01/25/19 01/25/19 01/25/19 01/25/19 10:00 10:10 12:00 12:22 Temp 37.0 Pulse 107 105 Resp 18 B/P (MAP) 167/74 (105) Pulse Ox 91 91 93 O2 Delivery Nasal Cannula Nasal Cannula Nasal Cannula O2 Flow Rate 1.00 1.00 2.50 01/25/19 00:00 Intake Total 525 ml Output Total 2000 ml Balance -1475 ml Weight (Pounds): 156 Weight (Ounces): 1.4 Weight (Calculated Kilograms): 70.912683 Constitutional: appears stated age; No apparent distress; well-developed, well- nourished Respiratory: chest is bilaterally symmetric, lungs clear to auscultation Cardiovascular: regular rate-rhythm, S1 and S2, systolic murmur Gastrointestional: soft, audible bowel sounds; No spleenomegaly Extremities: normal range of motion, non-tender, normal inspection; No clubbing, No cyanosis; no lower extremity edema bilateral; No significant edema Neurologic/Psychiatric: alert, normal mood/affect Skin: normal color, warm/dry Results/Procedures: Labs Laboratory Tests 01/24/19 15:50: Sodium Level 137, Potassium Level 3.7, Chloride Level 102, Carbon Dioxide Level 20L, Anion Gap 15H, Blood Urea Nitrogen 12, Creatinine 0.79, Estimat Glomerular Filtration Rate > 60, BUN/Creatinine Ratio 15, Glucose Level 294H, Calcium Level 8.9, Corrected Calcium 9.8, Total Bilirubin 0.4, Aspartate Amino Transf (AST/SGOT) 20, Alanine Aminotransferase (ALT/SGPT) 14, Alkaline Phosphatase 146H , Total Protein 6.2L, Albumin 2.9L 01/24/19 16:33: Glucometer 310H 01/24/19 20:30: Glucometer 270H 01/25/19 03:10: Sodium Level 141, Potassium Level 3.6, Chloride Level 105, Carbon Dioxide Level 21, Anion Gap 15H, Blood Urea Nitrogen 18, Creatinine 0.82, Estimat Glomerular Filtration Rate > 60, BUN/Creatinine Ratio 22, Glucose Level 350H, Calcium Level 9.2, White Blood Count 13.1H, Red Blood Count 3.44L, Hemoglobin 9.5L, Hematocrit 30L, Mean Corpuscular Volume 88, Mean Corpuscular Hemoglobin 28, Mean Corpuscular Hemoglobin Concent 32, Red Cell Distribution Width 14.3, Platelet Count 265, Mean Platelet Volume 12.0H, Neutrophils (%) (Auto) 93H, Lymphocytes (%) (Auto) 5L, Monocytes (%) (Auto) 2, Eosinophils (%) (Auto) 0, Basophils (%) (Auto) 0, Neutrophils # (Auto) 12.2H, Lymphocytes # (Auto) 0.6L, Monocytes # (Auto) 0.3, Eosinophils # (Auto) 0.0, Basophils # (Auto) 0.0, Neutrophils % (Manual) 92, Lymphocytes % (Manual) 4, Monocytes % (Manual) 1, Eosinophils % (Manual) 0, Basophils % (Manual) 0, Band Neutrophils 3, Toxic Granulation 1+, Polychromasia SLIGHT, Target Cells SLIGHT, Phosphorus Level 2.8, Magnesium Level 2.0 01/25/19 11:10: Glucometer 328H Microbiology 01/18/19 Blood Culture - Final, Complete No growth 01/22/19 MRSA Screen - Final, Complete MRSA not isolated 01/22/19 Urine Culture - Preliminary, Resulted Eve glabrata A/P: Assessment/Dx: Critical limb ischemia, Systolic murmur, Right foot cellulitis. Atrial fibrillation with rapid ventricular rate Plan: Critical limb ischemia, arterial ultrasound shows significant disease in the distal right SFA and possibility of no flow below the right knee. Severe disease in the left lower extremity as well. Peripheral angiogram 01/21/2019 with occluded right SFA. Revascularization done with balloon angioplasty from the right HAND SHAKER to the popliteal artery. At least 2 vessel runoff below the knee. Aspirin and Plavix. Get old records from [facility]. Plan to perform staged procedure to the left lower extremity on 01/27/2019 Systolic murmur, echocardiogram shows mild aortic stenosis. Atrial fibrillation with rapid ventricular rate, start IV Cardizem. Will discuss with the patient's and usp about possibility of starting oral anticoagulation therapy. Risk of bleeding since the patient will also be on aspirin and Plavix. Therefore oral anticoagulation therapy may not be the best option. Currently in sinus rhythm. No further atrial fibrillation. For now continue dual antiplatelet therapy. Since the patient has advanced dementia, triple therapy may not be the best option. Right foot cellulitis. IV antibiotics, deferred to Dr. Velarde and Dr. Amos. Thank you for your consultation. Please call me if you have any questions. William Aparicio MD, FACP, FACC, FSCAI, FHRS, CCDS Interventional Cardiology Cardiac Electrophysiology Vascular Medicine and Endovascular Interventions Zeke APARICIO MD Jan 25, 2019 15:27 POS
[2019-01-25] MEDS: ENOXAPARIN 40 MG/0.4 ML (LOVENOX) SYR SC SCH (17:12)
[2019-01-25] MEDS: SERTRALINE 50 MG (ZOLOFT) TABLET PO SCH (21:33)
[2019-01-26] VITALS (7 sets, daily range): BP systolic 171–190; BP diastolic 68–77
[2019-01-26] MEDS: RT-ALBUTEROL/IPRATROPIUM 3 ML (DUONEB) VIAL INH SCH ×6 (01:42→22:45)
[2019-01-26 06:36] LABS: BASOPHILS % (AUTO) 0 % (0-10); EOSINOPHILS % (AUTO) 0 % (0-10); HEMATOCRIT 31 % (35-52); HEMOGLOBIN 9.6 G/DL (11.5-16.0); LYMPHOCYTES # (AUTO) 1.9 X 10^3 (1.0-4.0); LYMPHOCYTES % (AUTO) 10 % (12-44); MEAN CORPUSCULAR HEMOGLOBIN 27 PG (25-34); MEAN CORPUSCULAR HGB CONC 31 G/DL (32-36); MEAN CORPUSCULAR VOLUME 87 FL (80-99); MEAN PLATELET VOLUME 11.8 FL (7.4-10.4); MONOCYTES % (AUTO) 10 % (0-12); NEUTROPHILS # (AUTO) 16.3 X 10^3 (1.8-7.8); NEUTROPHILS % (AUTO) 81 % (42-75); PLATELET COUNT 355 10^3/uL (130-400); RED CELL DISTRIBUTION WIDTH 14.7 % (10.0-14.5); WHITE BLOOD COUNT 20.2 10^3/uL (4.3-11.0)
--- NOTE | 2019-01-26 06:53 | Pulmonary Progress Note ---
Subjective Date Seen by a Provider: Jan 25, 2019 (Late note for 01/25 today is 01/26 ) Time Seen by a Provider: 06:50 Subjective/Events-last exam Pt doing better however still wheezy. Sepsis Event Evaluation Height, Weight, BMI Height: 5'2.00" Weight: 156lbs. 1.4oz. 70.363123hq; 30.00 BMI Method: Exam Exam Vital Signs Date Time Temp Pulse Resp B/P (MAP) Pulse Ox O2 Delivery O2 Flow Rate FiO2 01/26/19 06:40 98 Nasal Cannula 2.00 01/26/19 04:45 36.3 93 20 186/73 (110) 93 Nasal Cannula 2.00 01/26/19 01:42 94 Nasal Cannula 2.00 01/26/19 01:00 101 01/26/19 00:00 36.7 99 20 172/73 (106) 94 Nasal Cannula 2.00 01/25/19 22:09 93 Nasal Cannula 2.00 01/25/19 20:00 Nasal Cannula 2.00 01/25/19 20:00 36.3 106 16 144/61 (88) 92 01/25/19 19:14 89 Nasal Cannula 1.00 01/25/19 19:00 98 01/25/19 17:19 91 1.00 01/25/19 16:00 36.5 99 18 163/73 (103) 94 Nasal Cannula 2.50 01/25/19 12:22 105 01/25/19 12:00 37.0 107 18 167/74 (105) 93 Nasal Cannula 2.50 01/25/19 10:10 91 Nasal Cannula 1.00 01/25/19 10:00 91 Nasal Cannula 1.00 01/25/19 09:00 37.0 107 18 167/74 (105) 93 Nasal Cannula 2.50 01/25/19 08:00 107 178/69 (105) 93 Nasal Cannula 2.50 01/25/19 07:00 112 I & O 01/26/19 07:00 Intake Total 850 ml Output Total 1800 ml Balance -950 ml Height & Weight Height: 5'2.00" Weight: 156lbs. 1.4oz. 70.472734fx; 30.00 BMI Method: General Appearance: Chronically ill, Mild Distress Neck: Full Range of Motion, Normal Inspection Respiratory: Chest Non Tender, No Respiratory Distress, Crackles, Decreased Breath Sounds, Wheezing Cardiovascular: Regular Rate, Rhythm, No Murmur, Normal Peripheral Pulses Capillary Refill: Greater Than 3 Seconds Peripheral Pulses: 2+ Radial Pulses (R), 2+ Radial Pulses (L) Gastrointestinal: soft Extremity: Other (No discerning inflammation noted at right foot. Both LE's felt warm and well perfused) Neurologic/Psychiatric: Alert (confused but alert), Oriented x3 (x2), Depressed Affect, Other (Dementia) Skin: Normal Color, Warm/Dry Lymphatic: No Adenopathy Results Lab Laboratory Tests 01/24/19 15:50 01/25/19 03:10 01/26/19 06:10 Assessment/Plan Assessment/Plan Worsening SOB with bilateral wheezing -solumedrol -repeat Lasix x 1 Hypokalemia -replace Status post stenting of the right SFA Metabolic encephalopathy -Monitor Cellulitis -continue Abx IDDM Dementia Depression PVD A-fib with rapid ventricular rate -Cardiology following LON PATTERSON DO Jan 26, 2019 06:53 POS
--- NOTE | 2019-01-26 06:57 | Pulmonary Progress Note ---
Subjective Time Seen by a Provider: 06:57 Subjective/Events-last exam PT is feeling better. Sepsis Event Evaluation Height, Weight, BMI Height: 5'2.00" Weight: 156lbs. 1.4oz. 70.196247dh; 30.00 BMI Method: Exam Exam Vital Signs Date Time Temp Pulse Resp B/P (MAP) Pulse Ox O2 Delivery O2 Flow Rate FiO2 01/26/19 06:40 98 Nasal Cannula 2.00 01/26/19 04:45 36.3 93 20 186/73 (110) 93 Nasal Cannula 2.00 01/26/19 01:42 94 Nasal Cannula 2.00 01/26/19 01:00 101 01/26/19 00:00 36.7 99 20 172/73 (106) 94 Nasal Cannula 2.00 01/25/19 22:09 93 Nasal Cannula 2.00 01/25/19 20:00 Nasal Cannula 2.00 01/25/19 20:00 36.3 106 16 144/61 (88) 92 01/25/19 19:14 89 Nasal Cannula 1.00 01/25/19 19:00 98 01/25/19 17:19 91 1.00 01/25/19 16:00 36.5 99 18 163/73 (103) 94 Nasal Cannula 2.50 01/25/19 12:22 105 01/25/19 12:00 37.0 107 18 167/74 (105) 93 Nasal Cannula 2.50 01/25/19 10:10 91 Nasal Cannula 1.00 01/25/19 10:00 91 Nasal Cannula 1.00 01/25/19 09:00 37.0 107 18 167/74 (105) 93 Nasal Cannula 2.50 01/25/19 08:00 107 178/69 (105) 93 Nasal Cannula 2.50 01/25/19 07:00 112 I & O 01/26/19 07:00 Intake Total 850 ml Output Total 1800 ml Balance -950 ml Height & Weight Height: 5'2.00" Weight: 156lbs. 1.4oz. 70.719621zu; 30.00 BMI Method: General Appearance: Chronically ill, Mild Distress Neck: Full Range of Motion, Normal Inspection Respiratory: Chest Non Tender, No Respiratory Distress, Crackles, Decreased Breath Sounds, Wheezing Cardiovascular: Regular Rate, Rhythm, No Murmur, Normal Peripheral Pulses Capillary Refill: Greater Than 3 Seconds Peripheral Pulses: 2+ Radial Pulses (R), 2+ Radial Pulses (L) Gastrointestinal: soft Extremity: Other (No discerning inflammation noted at right foot. Both LE's felt warm and well perfused) Neurologic/Psychiatric: Alert (confused but alert), Oriented x3 (x2), Depressed Affect, Other (Dementia) Skin: Normal Color, Warm/Dry Lymphatic: No Adenopathy Results Lab Laboratory Tests 01/24/19 15:50 01/25/19 03:10 01/26/19 06:10 Assessment/Plan Assessment/Plan pulmonary edema secondary with grade 1 diastolic dysfunction per echo continue Lasix Status post stenting of the right SFA Metabolic encephalopathy -Monitor Cellulitis -continue Abx IDDM Dementia Depression PVD A-fib -Cardiology following LON PATTERSON DO Jan 26, 2019 06:57 POS
[2019-01-26 07:01] LABS: BUN/CREATININE RATIO 32; CALCIUM 9.5 MG/DL (8.5-10.1); CARBON DIOXIDE 24 MMOL/L (21-32); CHLORIDE 102 MMOL/L (98-107); CREATININE SERUM 0.91 MG/DL (0.60-1.30); GFR ESTIMATED > 60; GLUCOSE 382 MG/DL (70-105); PHOSPHORUS 2.7 MG/DL (2.3-4.7); POTASSIUM 3.7 MMOL/L (3.6-5.0); SODIUM 137 MMOL/L (135-145)
[2019-01-26] MEDS: LEVOTHYROXINE 112 MCG (LEVOTHROID) TAB PO SCH (07:02)
--- NOTE | 2019-01-26 07:18 | Diagnostic Imaging Report ---
INDICATION: Shortness of breath. COMPARISON: 01/25/2019. FINDINGS: Single view of the chest demonstrates cardiac enlargement with persistent but slight decrease in interstitial edema. Small effusions are present bilaterally and are stable. There is no pneumothorax. TECHNICAL ENGINEER shunt lines are seen bilaterally. Osseous structures stable. IMPRESSION: 1. Persistent but decreased interstitial edema. 2. Stable bilateral pleural effusions. Dictated by: Dictated on workstation # [id number]
[2019-01-26] MEDS: inSUlin ASPART (NovoLOG) 1 UNIT/0.01 ML (CHARGE PER UNIT) SC SCH ×3 (07:43→16:41)
[2019-01-26] MEDS: CEFDINIR 300 MG (OMNICEF) CAP PO SCH ×2 (08:36→20:24)
[2019-01-26] MEDS: CLOPIDOGREL 75 MG (PLAVIX) TABLET PO SCH (08:36)
[2019-01-26] MEDS: ARTIFICAL TEARS 0.4 ML UNIT DOSE (REFRESH PLUS) OU SCH ×4 (08:36→20:24)
[2019-01-26] MEDS: SIMvastatin 40 MG (ZOCOR) TAB PO SCH (08:36)
[2019-01-26] MEDS: DILTIAZEM 120 MG (CARDIZEM CD) CAP PO SCH (08:36)
[2019-01-26] MEDS: ASPIRIN E.C. 81 MG (ECOTRIN) TAB PO SCH (08:36)
[2019-01-26] MEDS: GABAPENTIN 300 MG (NEURONTIN) CAP PO SCH ×3 (08:36→20:24)
[2019-01-26] MEDS: LIDOCAINE 4% (SALONPAS) PATCH TOP SCH (08:37)
[2019-01-26] MEDS ORDERED: FLUCONAZOLE 200 MG/100 ML 50 ML, EMPTY IV BAG (PVC) 1 EA IV SCH ×2 (09:00)
--- NOTE | 2019-01-26 09:06 | NUR ---
PATIENT PULLED OUT IV. ORAL AND MAXILLOFACIAL SURGERY RN UNABLE TO RESTART IV. 2 FAILED ATTEMPTS BY THIS RN. DR GALVEZ ORDERED A MIDLINE.
--- NOTE | 2019-01-26 09:07 | NUR ---
0900 DIFLUCAN AND LASIX WILL BE GIVEN WHEN IV ACCESS IS GAINED.
--- NOTE | 2019-01-26 09:40 | Progress Note ---
HERI SPAULDING [facility] 01/26/19 0940: Subjective Date Seen by a Provider: Jan 26, 2019 Time Seen by a Provider: 07:02 Subjective/Events-last exam Pt was sleeping when I entered and had pulled out her IV again overnight. She seemed a little less confused today and was very pleasant She stated that yesterday was the best she had been feeling in a while, and she felt good currently. She states her right foot and leg do hurt a little with pressure, but not nearly as bad as before She denied any nausea, vomiting, abdominal pain, SOB, chest pain, or headache. When asked if she thought she could stand by herself or stand with help she stated she would try to stand with some help today Review of Systems HEENT: No Head Aches Pulmonary: No Dyspnea, No Cough Cardiovascular: No: Chest Pain, Palpitations Gastrointestinal: No: Nausea, Vomiting, Abdominal Pain, Diarrhea Genitourinary: No Dysuria Musculoskeletal: leg pain (Right), foot pain (Right) Neurological: Confusion Focused Exam Respiratory: Chest Non Tender, Lungs Clear, Normal Breath Sounds, No Respiratory Distress Cardiovascular: Regular Rate, Rhythm, Normal Peripheral Pulses, Systolic Murmur Peripheral Pulses: 2+ Radial Pulses (R), 2+ Radial Pulses (L) Skin: normal color, warm/dry Objective Exam Last Set of Vital Signs Vital Signs Date Time Temp Pulse Resp B/P (MAP) Pulse Ox O2 Delivery O2 Flow Rate FiO2 01/26/19 08:00 Nasal Cannula 2.00 01/26/19 07:00 88 01/26/19 06:40 98 01/26/19 04:45 36.3 20 186/73 (110) 01/20/19 08:00 95 Capillary Refill : Less Than 3 SecondsGreater Than 3 Seconds I&O l Intake and Output 01/26/19 00:00 Intake Total 1060 ml Output Total 2375 ml Balance -1315 ml Intake Oral 1060 ml Output Urine Total 2375 ml # Bowel Movements 1 General: Alert, No Acute Distress Lungs: Clear to Auscultation, Normal Air Movement Heart: Regular Rate, Other (Systolic murmur) Extremities: No Edema, Normal Pulses Neuro: Other (Difficulty hearing) Psych/Mental Status: Mood NL, Other (Confusion, Dementia) Results Lab Laboratory Tests 01/25/19 11:10: Glucometer 328H 01/25/19 15:56: Glucometer 317H 01/25/19 20:38: Glucometer 436*H 01/26/19 06:10: White Blood Count 20.2H, Red Blood Count 3.53L, Hemoglobin 9.6L, Hematocrit 31L, Mean Corpuscular Volume 87, Mean Corpuscular Hemoglobin 27, Mean Corpuscular Hemoglobin Concent 31L, Red Cell Distribution Width 14.7H, Platelet Count 355, Mean Platelet Volume 11.8H, Neutrophils (%) (Auto) 81H, Lymphocytes (%) (Auto) 10L, Monocytes (%) (Auto) 10, Eosinophils (%) (Auto) 0, Basophils (%) (Auto) 0, Neutrophils # (Auto) 16.3H, Lymphocytes # (Auto) 1.9, Monocytes # (Auto) 2.0H, Eosinophils # (Auto) 0.0, Basophils # (Auto) 0.0, Sodium Level 137, Potassium Level 3.7, Chloride Level 102, Carbon Dioxide Level 24, Anion Gap 11, Blood Urea Nitrogen 29H, Creatinine 0.91, Estimat Glomerular Filtration Rate > 60, BUN/Creatinine Ratio 32, Glucose Level 382H, Calcium Level 9.5, Phosphorus Level 2.7, Magnesium Level 2.0 Microbiology 01/18/19 Blood Culture - Final, Complete No growth 01/22/19 MRSA Screen - Final, Complete MRSA not isolated 01/22/19 Urine Culture - Final, Complete Eve glabrata Assessment/Plan Assessment/Plan Assess & Plan/Chief Complaint Assessment: Cellulitis Type 1 Diabetes Dementia Depression PVD Hx A-fib with rapid ventricular rate Tachycardia Plan: Consult cardiology for A fib/Tachycardia management Manage diabetes with long acting insulin and insulin sliding scale Manage depression and dementia Pain management Clinical Quality Measures DVT/VTE Risk/Contraindication: Risk Factor Score Per Nursin RFS Level Per Nursing on Admit: 4+=Very High DULCE GALVEZ DO 01/26/19 1653: Subjective Subjective/Events-last exam Pt doing pretty well Candidal UTI managed with Diflucan White count is 20,000 but no source No fever noted Appears to be more lucid today Pulled out another IV Will have midline placed today No evidence of sepsis Left leg will have intervention tomorrow by Dr. Aparicio Very extensive case and she has such very complicated brittle diabetes with peripheral vascular and dementia Very poor prognosis overall Review of Systems Neurological: Confusion Objective Exam General: Alert, Cooperative Lungs: Clear to Auscultation Heart: Regular Rate Assessment/Plan Assessment/Plan Assess & Plan/Chief Complaint PVD procedure tomorrow Diagnosis/Problems Diagnosis/Problems (1) Cellulitis of right foot (2) Atrial fibrillation with rapid ventricular response (3) Diabetes mellitus, insulin dependent (IDDM), controlled (4) Presbycusis of both ears (5) Memory deficit (6) CVA (cerebral vascular accident) (7) Falls frequently (8) Hypertension (9) PVD (peripheral vascular disease) Status: Chronic (10) Hypothyroidism (11) NPH (normal pressure hydrocephalus) (12) Depression (13) Anxiety Supervisory-Addendum Brief Verification & Attestation Participated in pt care: history, MDM, physical Personally performed: exam, history, MDM, supervision of care Care discussed with: Medical Student Procedures: n/a Results interpretation: Verified all documentation Verification and Attestation of Medical Student E/M Service A medical student performed and documented this service in my presence. I reviewed and verified all information documented by the medical student and made modifications to such information, when appropriate. I personally performed the physical exam and medical decision making. Dulce Galvez, Jan 26, 2019,16:52 HERI SPAULDING [facility] Jan 26, 2019 09:40 DULCE HIDALGO DO Jan 26, 2019 16:53 POS
--- NOTE | 2019-01-26 10:58 | Physical Therapy Daily Note ---
PT Daily Note-Current Subjective Patient in bed pre tx, sleeping, agrees to PT upon waking, voices no complaints of pain. Appearance Patient in recliner post tx with nurse call, phone, tray, chair alarm on. Mental Status Patient Orientation: Person, Confused Attachments: Arredondo Catheter Transfers SCALE: Activities may be completed with or without assistive devices. 6-Qbgaekynyq-xymkpne completes the activity by him/herself with no assistance from a helper. 5-Set-up or Clean-up Assistance-helper sets up or cleans up; patient completes activity. [place] assists only prior to or following the activity. 4-Supervision or Touching Assistance-helper provides verbal cues and/or touching/steadying and/or contact guard assistance as patient completes activity. Assistance may be provided throughout the activity or intermittently. 3-Partial/Moderate Assistance-helper does LESS THAN HALF the effort. [place] lifts, holds or supports trunk or limbs, but provides less than half the effort. 2-Substantial/Maximal Assistance-helper does MORE THAN HALF the effort. [place] lifts or holds trunk or limbs and provides more than half the effort. 0-Bzblhzdcz-eezzrw does ALL the effort. Patient does none of the effort to complete the activity. Or, the assistance of 2 or more helpers is required for the patient to complete the activity. If activity was not attempted, code reason: 7-Patient Refused. 9-Not Applicable-not attempted and the patient did not perform the activity before the current illness, exacerbation or injury. 10-Not Attempted due to Environmental Limitations-(lack of equipment, weather restraints, etc.). 88-Not Attempted due to Medical Conditions or Safety Concerns. Roll Left to Right (QC): 3 Sit to Lying (QC): 3 Sit to Stand (QC): 3 (mod assist) Chair/Xjf-lj-Xxzlz Xfer(QC): 3 (mod assist) Patient was able to take several steps toward the recliner after standing, holding onto PT's arms. Weight Bearing Right Lower Extremity: Right Full Weight Bearing Left Lower Extremity: Left Full Weight Bearing Exercises Seated Therapy Exercises: Ankle pumps, Long arc quads Seated Reps: 10 Treatments bed mobility and transfers, LE exercise Assessment Current Status: Fair Progress improved bed mobility and transfers PT Mcfp Goals Director Epidemiology Goals PT Mcfp Goals Time Frame: Feb 04, 2019 Sit to Lying (QC): 4 Lying-Sitting on Side/Bed(QC): 4 Sit to Stand (QC): 4 Roll Left to Right (QC): 4 Chair/Hhu-na-Beutk Xfer(QC): 4 Does the Patient Walk: No and Walking Goal NOT indicated PT Plan Problem List Problem List: Activity Tolerance, Functional Strength, Safety, Balance, Gait, Transfer, Bed Mobility, ROM Treatment/Plan Treatment Plan: Continue Plan of Care Treatment Plan: Bed Mobility, Education, Functional Activity Anjali, Functional Strength, Safety, Therapeutic Exercise, Transfers Treatment Duration: Feb 04, 2019 Frequency: 11 times per week Estimated Hrs Per Day: .5 hour per day Patient and/or Family Agrees t: Yes Safety Risks/Education Patient Education: Gait Training, Transfer Techniques, Correct Positioning, Safety Issues Teaching Recipient: Patient Teaching Methods: Demonstration, Discussion Response to Teaching: Reinforcement Needed Time/GCodes Time In: 1039 Time Out: 1050 Total Billed Treatment Time: 11 Total Billed Treatment 1 visit FA ALMA CACERES PT Jan 26, 2019 10:58 POS
[2019-01-26] MEDS: fluCOnazole (DIFLUCAN) 100 MG TAB PO SCH (11:11)
[2019-01-26] MEDS: FUROSEMIDE 40 MG (LASIX) TAB PO SCH (11:11)
--- NOTE | 2019-01-26 11:20 | Occupational Ther Daily Note ---
OT Current Status-Daily Note Subjective Pt sitting in chair, agrees to therapy. Mental Status/Objective Attachments: Oxygen ADL-Treatment Pt requests to use restroom. Transfer chair <-> BSC with max assist, cues for safety and transfer technique. Pt required assist for toileting hygiene and tiffany thing management. Total assist to don clean Depends. Pt completed grooming tasks while seated in chair. Pt washed face and combed hair with SBA. Pt sitting in chair with needs met after session. Therapy Code Descriptions/Definitions Functional [place] Measure: 0=Not Assessed/NA 4=Minimal Assistance 1=Total Assistance 5=Supervision or Setup 2=Maximal Assistance 6=Modified [place] 3=Moderate Assistance 7=Complete IndependenceSCALE: Activities may be completed with or without assistive devices. 0-Mnrfukbmdz-brxixhe completes the activity by him/herself with no assistance from a helper. 5-Set-up or Clean-up Assistance-helper sets up or cleans up; patient completes activity. [place] assists only prior to or following the activity. 4-Supervision or Touching Assistance-helper provides verbal cues and/or touching/steadying and/or contact guard assistance as patient completes activity. Assistance may be provided throughout the activity or intermittently. 3-Partial/Moderate Assistance-helper does LESS THAN HALF the effort. [place] lifts, holds or supports trunk or limbs, but provides less than half the effort. 2-Substantial/Maximal Assistance-helper does MORE THAN HALF the effort. [place] lifts or holds trunk or limbs and provides more than half the effort. 2-Rukzzrdcd-oynjbc does ALL the effort. Patient does none of the effort to complete the activity. Or, the assistance of 2 or more helpers is required for the patient to complete the activity. If activity was not attempted, code reason: 7-Patient Refused. 9-Not Applicable-not attempted and the patient did not perform the activity before the current illness, exacerbation or injury. 10-Not Attempted due to Environmental Limitations-(lack of equipment, weather restraints, etc.). 88-Not Attempted due to Medical Conditions or Safety Concerns. Toileting Hygiene (QC): 1 Toilet Transfer (QC): 2 OT Short Term Goals Short Term Goals 1=Demonstrate adherence to instructed precautions during ADL tasks. 2=Patient will verbalize/demonstrate understanding of assistive devices/modifications for ADL. 3=Patient will improve strength/tolerance for activity to enable patient to perform ADL's. OT Group Home Goals [employer] Goals Time Frame: Feb 08, 2019 Eating (QC): 5 Oral Hygiene (QC): 4 Upper Body Dressing (QC): 4 Lower Body Dressing (QC): 3 Toileting Hygiene (QC): 3 Toilet/Commode Transfer (QC): 3 Additional Goals: 1-Demonstrate ADL Tasks, 2-Verbalize Understanding, 3- ImproveStrength/Anjali 1=Demonstrate adherence to instructed precautions during ADL tasks. 2=Patient will verbalize/demonstrate understanding of assistive devices/modifications for ADL. 3=Patient will improve strength/tolerance for activity to enable patient to perform ADL's. OT Education/Plan Discharge Recommendations Plan/Recommendations: Continue POC Treatment Plan/Plan of Care Patient would benefit from OT for education, treatment and training to promote independence in ADL's, mobility, safety and/or upper extremity function for ADL's. Plan of Care: ADL Retraining, Functional Mobility, UE Funct Exercise/Act Treatment Duration: Feb 08, 2019 Frequency: 5 times per week Estimated Hrs Per Day: .25 hour per day Rehab Potential: Fair Time/GCodes Start Time: 10:58 Stop Time: 11:10 Total Time Billed (hr/min): 12 Billed Treatment Time 1 visit, ADL(12minutes) DILLAN JOYCE OT Jan 26, 2019 11:20 POS
--- NOTE | 2019-01-26 13:30 | NUR ---
THE PICC/MIDLINE RN JAKE CALLED. SHE WANTED TO KNOW WHY THE PATIENT NEEDED A MIDLINE SINCE THE PATIENT'S IV ANTIBIOTICS AND LASIX WERE CHANGED TO PO TODAY. SHE STATED THAT IT TOOK 3 PEOPLE TO INSERT THE PICC LINE SHE HAD PUT IN. DR GALVEZ NOTIFIED. SHE IS OKAY TO HOLD OFF ON THE MIDLINE FOR TODAY. SHE WILL SEE HOW THE PATIENT DOES TONIGHT TO DETERMINE IF SHE WILL STILL NEED THE MIDLINE INSERTED TOMORROW,
--- NOTE | 2019-01-26 14:33 | Cardiology Progress Note ---
Cardiology SOAP Progress Note Subjective: No cardiac complaints. Objective: I&O/Vital Signs 01/26/19 01/26/19 01/26/19 01/26/19 10:34 11:54 13:00 16:05 Temp 36.5 36.4 Pulse 92 95 88 Resp 20 20 B/P (MAP) 178/71 (106) 184/77 (112) Pulse Ox 92 95 95 O2 Delivery Nasal Cannula Room Air Nasal Cannula O2 Flow Rate 2.00 1.00 01/26/19 01/26/19 19:00 20:11 Temp 36.5 Pulse 97 Resp 20 B/P (MAP) 171/72 (105) Pulse Ox 92 91 O2 Delivery Nasal Cannula Nasal Cannula O2 Flow Rate 2.00 1.00 01/26/19 00:00 Intake Total 850 ml Output Total 1800 ml Balance -950 ml Weight (Pounds): 156 Weight (Ounces): 1.4 Weight (Calculated Kilograms): [id number] Constitutional: appears stated age; No apparent distress; well-developed, well- nourished Respiratory: chest is bilaterally symmetric, lungs clear to auscultation Cardiovascular: regular rate-rhythm, S1 and S2, systolic murmur Gastrointestional: soft, audible bowel sounds; No spleenomegaly Extremities: normal range of motion, non-tender, normal inspection; No clubbing, No cyanosis; no lower extremity edema bilateral; No significant edema Neurologic/Psychiatric: alert, normal mood/affect Skin: normal color, warm/dry Results/Procedures: Labs Laboratory Tests 01/25/19 20:38: Glucometer 436*H 01/26/19 06:10: White Blood Count 20.2H, Red Blood Count 3.53L, Hemoglobin 9.6L, Hematocrit 31L, Mean Corpuscular Volume 87, Mean Corpuscular Hemoglobin 27, Mean Corpuscular Hemoglobin Concent 31L, Red Cell Distribution Width 14.7H, Platelet Count 355, Mean Platelet Volume 11.8H, Neutrophils (%) (Auto) 81H, Lymphocytes (%) (Auto) 10L, Monocytes (%) (Auto) 10, Eosinophils (%) (Auto) 0, Basophils (%) (Auto) 0, Neutrophils # (Auto) 16.3H, Lymphocytes # (Auto) 1.9, Monocytes # (Auto) 2.0H, Eosinophils # (Auto) 0.0, Basophils # (Auto) 0.0, Sodium Level 137, Potassium Level 3.7, Chloride Level 102, Carbon Dioxide Level 24, Anion Gap 11, Blood Urea Nitrogen 29H, Creatinine 0.91, Estimat Glomerular Filtration Rate > 60, BUN/Creatinine Ratio 32, Glucose Level 382H, Calcium Level 9.5, Phosphorus Level 2.7, Magnesium Level 2.0, B-Type Natriuretic Peptide 271.5H 01/26/19 11:27: Glucometer 377H 01/26/19 16:03: Glucometer 440*H Microbiology 01/18/19 Blood Culture - Final, Complete No growth 01/22/19 MRSA Screen - Final, Complete MRSA not isolated 01/22/19 Urine Culture - Final, Complete Eve glabrata A/P: Assessment/Dx: Critical limb ischemia, Systolic murmur, Right foot cellulitis. Atrial fibrillation with rapid ventricular rate Plan: Critical limb ischemia, arterial ultrasound shows significant disease in the distal right SFA and possibility of no flow below the right knee. Severe disease in the left lower extremity as well. Peripheral angiogram 01/21/2019 with occluded right SFA. Revascularization done with balloon angioplasty from the right COMPUTER OPERATIONS TECHNICIAN to the popliteal artery. At least 2 vessel runoff below the knee. Aspirin and Plavix. Get old records from [facility]. Plan to perform staged procedure to the left lower extremity on 01/27/2019. Aspirin and plavix continue. Hold Lovenox tonight. Systolic murmur, echocardiogram shows mild aortic stenosis. Atrial fibrillation with rapid ventricular rate, start IV Cardizem. Will discuss with the patient's and retirement about possibility of starting oral anticoagulation therapy. Risk of bleeding since the patient will also be on aspirin and Plavix. Therefore oral anticoagulation therapy may not b e the best option. Currently in sinus rhythm. No further atrial fibrillation. For now continue dual antiplatelet therapy. Since the patient has advanced dementia, triple therapy may not be the best option. Right foot cellulitis. IV antibiotics, deferred to Dr. Velarde and Dr. Amos. Thank you for your consultation. Please call me if you have any questions. William Aparicio MD, FACP, FACC, FSCAI, FHRS, CCDS Interventional Cardiology Cardiac Electrophysiology Vascular Medicine and Endovascular Interventions Zeke APARICIO MD Jan 26, 2019 14:33 POS
--- NOTE | 2019-01-26 14:45 | NUR ---
ELEMENTARY VOCAL MUSIC TEACHER NOTIFIED THAT DR DENTON WILL NEED ANESTHESIA TOMORROW FOR THE PROCEDURE AROUND 1300.
--- NOTE | 2019-01-26 15:00 | NUR ---
CALLED CHARITY ZUNGIA, THE PATIENT'S . TELEPHONE CONSENT RECEIVED FOR ANGIOGRAPHY PROCEDURE THE DR DENTON ORDERED FOR TOMORROW. THEY WILL CLEAN OUT THE VEINS ON THE LEFT LEG THIS TIME.
--- NOTE | 2019-01-26 15:05 | NUR ---
DAY SURG/PICC CALLED. LEFT MESSAGE FOR JAKE RN OR PICC/MIDLINE NURSED FOR TOMORROW. THE MIDLINE NEEDS TO BE PUT IN THE THE AM. DR DENTON ORDERED A PROCEDURE THAT IS SCHEDULED FOR 1300 TOMORROW.
--- NOTE | 2019-01-26 16:43 | NUR ---
CALLED DR DENTON-LEFT MESSAGE ON HIS CELL PHONE INQUIRING WHETHER OR NOT TO HOLD THE LOVENOX, ASPIRIN AND PLAVIX PRIOR TO THE PROCEDURE TOMORROW
[2019-01-26] MEDS: ENOXAPARIN 40 MG/0.4 ML (LOVENOX) SYR SC SCH (16:57)
--- NOTE | 2019-01-26 17:35 | NUR ---
DR DENTON RETURNED THE PHONE CALL. HOLD THE LOVENOX 01-26-19 BUT DO NOT HOLD THE ASPIRIN OR PLAVIX ON 01-27-19
[2019-01-26] MEDS: SERTRALINE 50 MG (ZOLOFT) TABLET PO SCH (20:24)
[2019-01-27] VITALS (14 sets, daily range): BP systolic 144–176; BP diastolic 66–87
[2019-01-27] MEDS: RT-ALBUTEROL/IPRATROPIUM 3 ML (DUONEB) VIAL INH SCH ×7 (03:05→21:20)
[2019-01-27 06:15] LABS: BASOPHILS % (AUTO) 0 % (0-10); EOSINOPHILS # (AUTO) 0.3 10^3/uL (0.0-0.3); EOSINOPHILS % (AUTO) 2 % (0-10); HEMATOCRIT 31 % (35-52); HEMOGLOBIN 9.6 G/DL (11.5-16.0); LYMPHOCYTES # (AUTO) 2.4 X 10^3 (1.0-4.0); LYMPHOCYTES % (AUTO) 20 % (12-44); MEAN CORPUSCULAR HEMOGLOBIN 28 PG (25-34); MEAN CORPUSCULAR HGB CONC 31 G/DL (32-36); MEAN CORPUSCULAR VOLUME 89 FL (80-99); MEAN PLATELET VOLUME 11.1 FL (7.4-10.4); MONOCYTES # (AUTO) 1.3 X 10^3 (0.0-1.0); MONOCYTES % (AUTO) 11 % (0-12); NEUTROPHILS # (AUTO) 8.3 X 10^3 (1.8-7.8); NEUTROPHILS % (AUTO) 67 % (42-75); PLATELET COUNT 363 10^3/uL (130-400); RED CELL DISTRIBUTION WIDTH 14.5 % (10.0-14.5); WHITE BLOOD COUNT 12.3 10^3/uL (4.3-11.0)
[2019-01-27] MEDS: LEVOTHYROXINE 112 MCG (LEVOTHROID) TAB PO SCH (06:21)
[2019-01-27] MEDS: inSUlin ASPART (NovoLOG) 1 UNIT/0.01 ML (CHARGE PER UNIT) SC SCH ×3 (06:31→18:09)
[2019-01-27 06:32] LABS: BUN/CREATININE RATIO 32; CALCIUM 8.9 MG/DL (8.5-10.1); CARBON DIOXIDE 29 MMOL/L (21-32); CHLORIDE 100 MMOL/L (98-107); CREATININE SERUM 0.79 MG/DL (0.60-1.30); GFR ESTIMATED > 60; GLUCOSE 315 MG/DL (70-105); MAGNESIUM 1.9 MG/DL (1.6-2.4); PHOSPHORUS 2.7 MG/DL (2.3-4.7); POTASSIUM 3.7 MMOL/L (3.6-5.0); SODIUM 139 MMOL/L (135-145)
--- NOTE | 2019-01-27 07:32 | Diagnostic Imaging Report ---
EXAMINATION: Chest 1 view HISTORY: Shortness of breath FINDINGS: Comparison is 01/26/2019. Catheter tubing projects over the right and left aspects of the chest and extends below the field of view. Cervical fusion is noted. There is improving mild pulmonary edema. There are stable small pleural effusions. Heart size is normal. No pneumothorax. IMPRESSION: 1. Improving mild pulmonary edema. Dictated by: Dictated on workstation # [id number]
[2019-01-27] MEDS: CEFDINIR 300 MG (OMNICEF) CAP PO SCH ×2 (08:12→21:13)
[2019-01-27] MEDS: SIMvastatin 40 MG (ZOCOR) TAB PO SCH (08:12)
[2019-01-27] MEDS: DILTIAZEM 120 MG (CARDIZEM CD) CAP PO SCH (08:12)
[2019-01-27] MEDS: GABAPENTIN 300 MG (NEURONTIN) CAP PO SCH ×3 (08:12→21:13)
[2019-01-27] MEDS: CLOPIDOGREL 75 MG (PLAVIX) TABLET PO SCH (08:12)
[2019-01-27] MEDS: ARTIFICAL TEARS 0.4 ML UNIT DOSE (REFRESH PLUS) OU SCH ×4 (08:12→21:13)
[2019-01-27] MEDS: ASPIRIN E.C. 81 MG (ECOTRIN) TAB PO SCH (08:12)
[2019-01-27] MEDS: FUROSEMIDE 40 MG (LASIX) TAB PO SCH (08:16)
[2019-01-27] MEDS: fluCOnazole (DIFLUCAN) 100 MG TAB PO SCH (08:16)
--- NOTE | 2019-01-27 09:40 | Progress Note ---
HERI SPAULDING [facility] 01/27/19 0940: Subjective Date Seen by a Provider: Jan 27, 2019 Time Seen by a Provider: 07:05 Subjective/Events-last exam * Pt was sleeping when I arrived, but after waking she was pleasant and alert. * She states she felt good yesterday and so far today is feeling pretty good * She would like to return to [facility] to be closer to her family * She has had less pain in her legs, but did state her left leg was a little painful today * I told her she was going to have another procedure to clean up her arteries in her left leg today similar to the one she had before * She was less confused today, but still had trouble remembering having the p rocedure done before * She appears to be doing much better and after she recovers from her procedure likely will be able to return to [facility] Review of Systems General: No Chills HEENT: No Head Aches, No Visual Changes Pulmonary: No Dyspnea, No Cough Cardiovascular: No: Chest Pain, Palpitations Gastrointestinal: No: Nausea, Vomiting, Abdominal Pain, Diarrhea Musculoskeletal: leg pain (Left), foot pain (Left ) Neurological: Confusion (Minor), Other (Dementia) Focused Exam Respiratory: Chest Non Tender, No Accessory Muscle Use, No Respiratory Distress, Crackles (Bilateral lower lobes) Cardiovascular: Regular Rate, Rhythm, No Edema, Normal Peripheral Pulses, Syst olic Murmur Peripheral Pulses: 2+ Radial Pulses (R), 2+ Radial Pulses (L) Skin: normal color, warm/dry Objective Exam Last Set of Vital Signs Vital Signs Date Time Temp Pulse Resp B/P (MAP) Pulse Ox O2 Delivery O2 Flow Rate FiO2 01/27/19 08:40 36.5 95 16 156/70 (98) 95 Nasal Cannula 1.00 Capillary Refill : Less Than 3 SecondsGreater Than 3 Seconds I&O Intake and Output 01/27/19 00:00 Intake Total 2100 ml Balance 2100 ml Intake Oral 2100 ml # Voids 14 # Bowel Movements 7 General: Alert, No Acute Distress Lungs: Normal Air Movement, Other (Bilateral lower lobe crackles) Heart: Regular Rate, Other (Systolic murmur) Extremities: No Edema, No Tenderness/Swelling Psych/Mental Status: Mood NL Results Lab Laboratory Tests 01/26/19 11:27: Glucometer 377H 01/26/19 16:03: Glucometer 440*H 01/26/19 21:11: Glucometer 399H 01/27/19 05:45: Glucometer 296H 01/27/19 06:10: White Blood Count 12.3H, Red Blood Count 3.48L, Hemoglobin 9.6L, Hematocrit 31L, Mean Corpuscular Volume 89, Mean Corpuscular Hemoglobin 28, Mean Corpuscular Hemoglobin Concent 31L, Red Cell Distribution Width 14.5, Platelet Count 363, Mean Platelet Volume 11.1H, Neutrophils (%) (Auto) 67, Lymphocytes (%) (Auto) 20, Monocytes (%) (Auto) 11, Eosinophils (%) (Auto) 2, Basophils (%) (Auto) 0, Neutrophils # (Auto) 8.3H, Lymphocytes # (Auto) 2.4, Monocytes # (Auto) 1.3H, Eosinophils # (Auto) 0.3, Basophils # (Auto) 0.0, Sodium Level 139, Potassium Level 3.7, Chloride Level 100, Carbon Dioxide Level 29, Anion Gap 10, Blood Urea Nitrogen 25H, Creatinine 0.79, Estimat Glomerular Filtration Rate > 60, BUN/Creatinine Ratio 32, Glucose Level 315H, Calcium Level 8.9, Phosphorus Level 2.7, Magnesium Level 1.9 Microbiology 01/18/19 Blood Culture - Final, Complete No growth 01/22/19 MRSA Screen - Final, Complete MRSA not isolated 01/22/19 Urine Culture - Final, Complete Eve glabrata Assessment/Plan Assessment/Plan Assess & Plan/Chief Complaint Assessment: Type 1 Diabetes Dementia Depression PVD Hx A-fib with rapid ventricular rate Plan: Cardiology to perform vascular procedure today on left leg Consult cardiology for A fib/Tachycardia management Manage diabetes with long acting insulin and insulin sliding scale Manage depression and dementia Pain management Clinical Quality Measures DVT/VTE Risk/Contraindication: Risk Factor Score Per Nursin RFS Level Per Nursing on Admit: 4+=Very High DULCE GALVEZ DO 01/28/19 0824: Subjective Subjective/Events-last exam Procedure for left-peripheral vascular disease is scheduled today at 1 PM. Blood sugars are labile but she is brittle. Possibly discharge back to the longterm tomorrow. Atrial fibrillation seems to be stable. Maintained on all medications, tolerating well. More lucid and less confused today. Doing much better. Poor prognosis remains. Objective Exam General: Alert, Other (improved mentation) Lungs: Clear to Auscultation Heart: Regular Rate Supervisory-Addendum Brief Verification & Attestation Participated in pt care: history, MDM, physical Personally performed: exam, history, MDM, supervision of care Care discussed with: Medical Student Procedures: n/a Results interpretation: Verified all documentation Verification and Attestation of Medical Student E/M Service A medical student performed and documented this service in my presence. I reviewed and verified all information documented by the medical student and made modifications to such information, when appropriate. I personally performed the physical exam and medical decision making. Dulce Galvez, Jan 28, 2019,08:23 [facility] Jan 27, 2019 09:40 DULCE HIDALGO DO Jan 28, 2019 08:24 POS
--- NOTE | 2019-01-27 09:45 | Physical Therapy Daily Note ---
PT Daily Note-Current Subjective Patient agrees to PT at this time. Patient does not report any pain or issues. Pain Numeric Pain Scale: 0-No Pain Location: No Pain Reported Mental Status Patient Orientation: Normal For Age Attachments: Oxygen Transfers SCALE: Activities may be completed with or without assistive devices. 3-Rqsdijgbey-hppcvks completes the activity by him/herself with no assistance from a helper. 5-Set-up or Clean-up Assistance-helper sets up or cleans up; patient completes activity. [place] assists only prior to or following the activity. 4-Supervision or Touching Assistance-helper provides verbal cues and/or touching/steadying and/or contact guard assistance as patient completes activity. Assistance may be provided throughout the activity or intermittently. 3-Partial/Moderate Assistance-helper does LESS THAN HALF the effort. Cove lifts, holds or supports trunk or limbs, but provides less than half the effort. 2-Substantial/Maximal Assistance-helper does MORE THAN HALF the effort. [place]ove lifts or holds trunk or limbs and provides more than half the effort. 1-Aprxbasjl-xrdufu does ALL the effort. Patient does none of the effort to complete the activity. Or, the assistance of 2 or more helpers is required for the patient to complete the activity. If activity was not attempted, code reason: 7-Patient Refused. 9-Not Applicable-not attempted and the patient did not perform the activity before the current illness, exacerbation or injury. 10-Not Attempted due to Environmental Limitations-(lack of equipment, weather restraints, etc.). 88-Not Attempted due to Medical Conditions or Safety Concerns. Transfers (B, C, W/C): 3 Roll Left to Right (QC): 4 Sit to Stand (QC): 3 Chair/Iqo-br-Hwpav Xfer(QC): 3 Required mod assistance to fully sit to EOB and stand. Able to transfer with use of FWW and assistance. Weight Bearing Right Lower Extremity: Right Full Weight Bearing Left Lower Extremity: Left Full Weight Bearing Exercises Supine Ex: Ankle pumps, Quad Set, Heel Slides, Straight leg raise, Hip abd/add Supine Reps: 10 Assessment Patient able to perform all supine exercises with minimal cues to begin exercise. Patient able to roll and sit up without assistance but unable to move to EOB to prepare for standing independently. Patient required mod assist to stand with walker but able to assist with standing and take steps to transfer to chair. Patient had difficulty hearing/following instructions during transfer. Patient seated in chair with feet up and pillow under legs to elevate heels. PT Mcfp Goals [place] Goals PT [place] Goals Time Frame: Feb 04, 2019 Sit to Lying (QC): 4 Lying-Sitting on Side/Bed(QC): 4 Sit to Stand (QC): 4 Roll Left to Right (QC): 4 Chair/Iwg-gl-Uxilj Xfer(QC): 4 Does the Patient Walk: No and Walking Goal NOT indicated PT Plan Treatment/Plan Treatment Plan: Continue Plan of Care Treatment Plan: Bed Mobility, Education, Functional Activity Anjali, Functional Strength, Safety, Therapeutic Exercise, Transfers Treatment Duration: Feb 04, 2019 Frequency: 6 times per week Estimated Hrs Per Day: .25 hour per day Patient and/or Family Agrees t: Yes Time/GCodes Time In: 844 Time Out: 900 Total Billed Treatment Time: 16 Total Billed Treatment 1 visit FA 16min SONIA DAN PT Jan 27, 2019 09:45 POS
--- NOTE | 2019-01-27 09:52 | Pulmonary Progress Note ---
Subjective Time Seen by a Provider: 09:51 Subjective/Events-last exam No complications noted. Sepsis Event Evaluation Height, Weight, BMI Height: 5'2.00" Weight: 156lbs. 1.4oz. 70.900062ep; 30.00 BMI Method: Exam Exam Vital Signs Date Time Temp Pulse Resp B/P (MAP) Pulse Ox O2 Delivery O2 Flow Rate FiO2 01/27/19 08:40 36.5 95 16 156/70 (98) 95 Nasal Cannula 1.00 01/27/19 07:19 94 Nasal Cannula 2.00 01/27/19 06:48 87 01/27/19 04:23 36.3 89 20 156/66 (96) 94 Nasal Cannula 1.00 01/27/19 03:03 92 Nasal Cannula 2.00 01/27/19 01:00 88 01/26/19 23:55 36.6 96 18 176/72 (106) 92 Room Air 01/26/19 22:47 92 Nasal Cannula 2.00 01/26/19 20:11 36.5 97 20 171/72 (105) 91 Nasal Cannula 1.00 01/26/19 20:00 Nasal Cannula 2.00 01/26/19 19:00 92 Nasal Cannula 2.00 01/26/19 19:00 97 01/26/19 16:05 36.4 88 20 184/77 (112) 95 Nasal Cannula 1.00 01/26/19 13:00 95 01/26/19 11:54 36.5 92 20 178/71 (106) 95 Room Air 01/26/19 10:34 92 Nasal Cannula 2.00 I & O 01/27/19 07:00 Intake Total 1900 ml Balance 1900 ml Height & Weight Height: 5'2.00" Weight: 156lbs. 1.4oz. 70.348022od; 30.00 BMI Method: General Appearance: No Apparent Distress, Anxious, Chronically ill HEENT: PERRL/EOMI, Pharynx Normal Neck: Full Range of Motion, Normal Inspection Respiratory: Chest Non Tender, No Accessory Muscle Use, No Respiratory Distress, Crackles (Bilateral lower lobes) Cardiovascular: Regular Rate, Rhythm, No Edema, Normal Peripheral Pulses, Systolic Murmur Capillary Refill: Greater Than 3 Seconds Peripheral Pulses: 2+ Radial Pulses (R), 2+ Radial Pulses (L) Gastrointestinal: soft Extremity: Other (No discerning inflammation noted at right foot. Both LE's felt warm and well perfused) Neurologic/Psychiatric: Alert (confused but alert), Oriented x3 (x2), Depressed Affect, Other (Dementia) Skin: Normal Color, Warm/Dry Lymphatic: No Adenopathy Results Lab Laboratory Tests 01/26/19 06:10 01/27/19 06:10 Assessment/Plan Assessment/Plan pulmonary edema secondary with grade 1 diastolic dysfunction per echo continue Lasix Status post stenting of the right SFA Metabolic encephalopathy -Monitor Cellulitis -continue Abx IDDM Dementia Depression PVD A-fib -Cardiology following LON PATTERSON DO Jan 27, 2019 09:52 POS
[2019-01-27] MEDS: LIDOCAINE 4% (SALONPAS) PATCH TOP SCH (10:47)
--- NOTE | 2019-01-27 11:27 | NUR ---
CM DISCHARGE PLANNING: Patient will return to [facility] likely tomorrow 01/28. Spoke with staff at [facility] et we will want to ask for Daiana tomorrow to set up a continuous pickling line pickler time for Jane. It appears that she is using oxygen here at 1LPM here et so I did let [facility] know that she will need oxygen to transport.
--- NOTE | 2019-01-27 11:51 | Occupational Ther Daily Note ---
OT Current Status-Daily Note Subjective Pt sitting in recliner, difficult to wake. Pt [place] and difficult for pt to understand directions. Pt requested to use BSC. Mental Status/Objective Patient Orientation: Person, Place, Situation Attachments: IV, Oxygen ADL-Treatment Mod A sit to stand. Mod A using FWW to transfer to BSC. Assist to manipulate clothing. Mod A to stand while pt cleansed miya area, pt attempted to cleanse buttocks, inefficient cleansing assist needed. Pt sat back down on BSC due to decreased activity tolerance. Pt unable to stand with FWW for second transfer. SPT mod A from BSC to chair. After therapy, pt sitting in recliner with call light/phone. All needs met in room. Therapy Code Descriptions/Definitions Functional [place] Measure: 0=Not Assessed/NA 4=Minimal Assistance 1=Total Assistance 5=Supervision or Setup 2=Maximal Assistance 6=Modified [place] 3=Moderate Assistance 7=Complete IndependenceSCALE: Activities may be completed with or without assistive devices. 2-Fkecuhzhud-skpygyq completes the activity by him/herself with no assistance from a helper. 5-Set-up or Clean-up Assistance-helper sets up or cleans up; patient completes activity. [place] assists only prior to or following the activity. 4-Supervision or Touching Assistance-helper provides verbal cues and/or touching/steadying and/or contact guard assistance as patient completes activity. Assistance may be provided throughout the activity or intermittently. 3-Partial/Moderate Assistance-helper does LESS THAN HALF the effort. [place] lifts, holds or supports trunk or limbs, but provides less than half the effort. 2-Substantial/Maximal Assistance-helper does MORE THAN HALF the effort. [place] lifts or holds trunk or limbs and provides more than half the effort. 5-Psywsnsgs-cgczij does ALL the effort. Patient does none of the effort to complete the activity. Or, the assistance of 2 or more helpers is required for the patient to complete the activity. If activity was not attempted, code reason: 7-Patient Refused. 9-Not Applicable-not attempted and the patient did not perform the activity before the current illness, exacerbation or injury. 10-Not Attempted due to Environmental Limitations-(lack of equipment, weather restraints, etc.). 88-Not Attempted due to Medical Conditions or Safety Concerns. Lower Body Dressing (QC): 2 Toileting Hygiene (QC): 2 Toilet Transfer (QC): 2 OT Short Term Goals Short Term Goals 1=Demonstrate adherence to instructed precautions during ADL tasks. 2=Patient will verbalize/demonstrate understanding of assistive devices/modifications for ADL. 3=Patient will improve strength/tolerance for activity to enable patient to perform ADL's. OT [employer] Software Developer Goals Group Home Goals Time Frame: Feb 08, 2019 Eating (QC): 5 Oral Hygiene (QC): 4 Upper Body Dressing (QC): 4 Lower Body Dressing (QC): 3 Toileting Hygiene (QC): 3 Toilet/Commode Transfer (QC): 3 Additional Goals: 1-Demonstrate ADL Tasks, 2-Verbalize Understanding, 3- ImproveStrength/Anjali 1=Demonstrate adherence to instructed precautions during ADL tasks. 2=Patient will verbalize/demonstrate understanding of assistive devices/modifications for ADL. 3=Patient will improve strength/tolerance for activity to enable patient to perform ADL's. OT Education/Plan Problem List/Assessment Assessment: Decreased Activ Tolerance, Decreased Safety Aware, Decreased UE Strength, Impaired Coordination, Impaired Funct Balance, Impaired Self-Care Skills, Restricted Funct UE ROM Discharge Recommendations Plan/Recommendations: Continue POC Treatment Plan/Plan of Care Patient would benefit from OT for education, treatment and training to promote independence in ADL's, mobility, safety and/or upper extremity function for ADL's. Plan of Care: ADL Retraining, Functional Mobility, UE Funct Exercise/Act Treatment Duration: Feb 08, 2019 Frequency: 5 times per week Estimated Hrs Per Day: .25 hour per day Rehab Potential: Fair Time/GCodes Start Time: 11:05 Stop Time: 11:30 Total Time Billed (hr/min): 25 Billed Treatment Time 1 visit-ADL 2 (25 min) ANA JULIEN Jan 27, 2019 11:51 POS
[2019-01-27] MEDS ORDERED: NS IV 1000 ML 1,000 ML ONE (13:03)
[2019-01-27] MEDS ORDERED: LIDOCAINE 1% INJ 20 ML 20 ML VIAL ONE (13:03)
[2019-01-27] MEDS ORDERED: HEParin (CATH LAB) 2,000 ML IV ONE (13:03)
[2019-01-27] MEDS ORDERED: proPOfol 200 MG/20 ML (DIPRIVAN) VIAL IV ONE (13:15)
[2019-01-27] MEDS ORDERED: fentaNYL INJECTION 100 MCG/2 ML AMP ONE (13:15)
[2019-01-27] MEDS ORDERED: LIDOCAINE BOLUS 100 MG/5 ML (IMS) SYR ONE (13:15)
[2019-01-27] MEDS ORDERED: MIDAZOLAM 2 MG/2 ML (VERSED) VIAL ONE (13:15)
[2019-01-27] MEDS ORDERED: ONDANSETRON 4 MG/2 ML (SDV) Z0FRAN ONE (13:16)
[2019-01-27] MEDS ORDERED: PHENYLEPHRINE 100 MCG/ML 10 ML (ANESTHESIA) SYR ONE (13:16)
[2019-01-27] MEDS ORDERED: HEParin 1000 UNIT/ML (10ML VIAL) FOR BOLUS ONE (14:49)
[2019-01-27] MEDS ORDERED: SEVOFLURANE (ULTANE) 15 ML INHAL SOLN ONE (15:57)
--- NOTE | 2019-01-27 16:25 | Coronary Angiography & PCI ---
Peripheral Angio & Interv DATE OF SERVICE: 01/27/19 PRIMARY PHYSICIAN: Dr Dulce Amos PERFORMING INTERVENTIONALIST: Dr. William Aparicio INDICATION: Severe left lower extremity PAD. PREOPERATIVE INDICATION: Severe left lower extremity PAD. POSTOPERATIVE DIAGNOSIS: Severe occlusive disease in the left SFA. Severe occlusive disease in the right SFA. HISTORY: This is a 73-year-old lady with advanced dementia. She has known previous history of severe PAD with numerous peripheral stents in bilateral lower extremities. She presented with nonhealing ulcer in right lower extremity with surrounding cellulitis. She was admitted for IV antibiotics. Bilateral arterial Doppler showed severe occlusive disease in the right SFA. She had a peripheral angiogram on 01/21/2019 which showed severe occlusive disease in the right SFA with reconstitution in the right popliteal artery. Successful revascularization was done with balloon angioplasty from the ostium of the right SFA till the popliteal artery. Satisfactory results with brisk flow to the foot was noted. Patient had severe disease in the left AGRONOMY TECHNICIAN, SFA, popliteal artery and anterior tibial artery. She was planned for staged procedure. PROCEDURE PERFORMED: 1. Abdominal aortogram with bilateral lower extremity runoff. 2. CAR HEAD LINER INSTALLER to the left anterior tibial artery. 3. CAR HEAD LINER INSTALLER to the left SFA, popliteal artery. SPECIMENS: None. ANESTHESIA: Conscious sedation. BLOOD LOSS: 20 mL. COMPLICATIONS: None. CONTRAST USED: 83 ml. FLUOROSCOPY DOSE: 510 Mgy. FLUOROSCOPY TIME: 19.13 minutes. ANTICOAGULATION: IV heparin DESCRIPTION OF PROCEDURE: The patient was brought to the lab tech after informed consent was taken. All the risks and complications were explained in detail. The patient was draped and prepped in the usual sterile fashion. She was on regular aspirin and Plavix every day. She was also on Lovenox since the last procedure. Lovenox was held this morning. Access was gained in the right femoral artery with a 5 Mauritian sheath. On a 0.035 wire and a pigtail catheter was advanced and distal abdominal aorta and abdominal aortogram with bilateral lower extremity runoff was performed. Crossover was performed with a UF catheter and the Storq wire. However they could not cross into the left SFA with a stork wire therefore we exchanged for a angled Glidewire. We were able to get the angled glide wire till the distal SFA. The UF catheter was taken out and we exchanged for a 6 x 45 cm sheath. Selective left lower extremity angiograms were performed. FINDINGS: Mild distal abdominal aortic disease. Patent right common iliac artery, external iliac artery, common femoral artery. Occluded right proximal/mid/distal SFA with reconstitution in the popliteal artery and at least one vessel runoff to below the knee. Left lower extremity: Patent left common iliac artery, external iliac artery with stent. Severe disease in the left common femoral artery, occluded SFA, popliteal artery, anterior tibial artery. With no distal reconstitution. RECOMMENDATIONS: Balloon angioplasty of the left anterior tibial artery, popliteal artery, SFA, common femoral artery is recommended. INTERVENTIONAL DETAILS: We had exchanged for a long 6 x 45 cm sheath. The tip of the sheath was placed in the distal left external iliac artery. IV heparin was given for anticoagulation. ACT during the procedure was 243 seconds. Selective left lower angiogram were performed. We crossed the occlusive segment with an angled Glidewire. The occlusive segments are likely due to thrombosis since this vessel had flow on angiogram last week. Therefore the likely diagnosis is subacute thrombosis. She has been on daily aspirin and Plavix. She was also receiving Lovenox. However the angled Glidewire could not be advanced more than the distal SFA within the stent. We therefore took a straight catheter till the distal left SFA. The angled glide wire was taken out and we advanced a [address] wire. We were able to cross into the mid left anterior tibial arter y. The straight tipped catheter was taken out and we went in with a Half Way 18 4 x 200 x 1 50 balloon. Balloon angioplasty was done to the left anterior tibial artery, left popliteal artery, left SFA, left AGRONOMY TECHNICIAN. Severe residual thrombus was still noted with some recanalization. We talked about giving local thrombolytics however due to severe dementia and we were unclear whether she will cooperate with commands. Also the issue of sheath management could be complicated with thrombolytics on board. We therefore took the [address] balloon out and went in with an Half Way 5 x 200 x 1 50 balloon. At this point in time our goal was just to recanalize the left lower extremity and have the patient on IV heparin for the next 2 days. Balloon angioplasty was done with a [address] balloon in the left popliteal artery at 14 salud for 3 minutes. Further balloon angioplasty was done in the SFA, AGRONOMY TECHNICIAN at 14 salud for 3 minutes. Further recanalization was noted with single-vessel runoff to the foot. However there was still residual thrombus noted in the left lower extremity. The wire was taken out. We exchanged the long sheath for a short 6 Mauritian sheath. Right femoral artery angiogram was done. Closure was performed with a minx device. CONCLUSION: 1. Reocclusion of the right SFA which was revascularized on 01/21/2019 with balloon angioplasty alone with good results. 2. Subacute occlusion of the left SFA stent, recanalization done with one- vessel runoff to the foot with balloon angioplasty. Residual thrombus noted. 3. Continue dual antiplatelet therapy. 4. Continue IV heparin for the next 48 hours. 5. I will discuss with the primary team about possible option for the right SFA which reoccluded as mentioned above. Options will be to revascularize again or to treat with medical therapy including heparin. William Aparicio MD, FACP, FACC, [facility] Vascular Medicine and Endovascular Interventions Zeke APARICIO MD Jan 27, 2019 4:25 pm POS
[2019-01-27] MEDS ORDERED: PATIENT MAY USE OWN MEDS, ALL PO SCH (16:30)
--- NOTE | 2019-01-27 17:18 | NUR ---
THIS NURSE CLARIFIED WITH DR DENTON THAT PT IS TO BE CARDIAC STEP DOWN STATUS. THIS NURSE ALSO NOTIFIED DR DENTON THAT PT SBP HAS BEEN IN THE 170-180 ORDERS GIVEN FOR 1 TIME DOSE OF AMLODIPINE. DR DENTON ALSO SAID TO START ACS HEPARIN DRIP PROTOCOL, HOLD LOVENOX, AND MAKE PT NPO AT MIDNIGHT.
[2019-01-27] MEDS: ENOXAPARIN 40 MG/0.4 ML (LOVENOX) SYR SC SCH (17:37)
[2019-01-27] MEDS ORDERED: HEParin DRIP 25000 UNIT/500ML 500 ML IV SCH (17:53)
[2019-01-27] MEDS ORDERED: HEParin 1000 UNIT/ML (10ML VIAL) FOR BOLUS IV PRN (18:00)
[2019-01-27] MEDS: NS IV 1000 ML 1,000 ML IV SCH (18:00)
[2019-01-27] MEDS ORDERED: amLODIPine 5 MG (NORVASC) TAB PO NR (18:45)
[2019-01-27 19:19] LABS: HEMOGLOBIN 9.4 G/DL (11.5-16.0); MEAN PLATELET VOLUME 11.5 FL (7.4-10.4); RED CELL DISTRIBUTION WIDTH 14.9 % (10.0-14.5); WHITE BLOOD COUNT 14.5 10^3/uL (4.3-11.0)
[2019-01-27 19:34] LABS: INR 1.1 (0.8-1.4); PROTHROMBIN TIME PATIENT 14.7 SEC (12.2-14.7)
[2019-01-27] MEDS: SERTRALINE 50 MG (ZOLOFT) TABLET PO SCH (21:13)
[2019-01-28] VITALS: BP 126/57
[2019-01-28] MEDS: RT-ALBUTEROL/IPRATROPIUM 3 ML (DUONEB) VIAL INH SCH ×3 (01:45→10:27)
[2019-01-28] MEDS: NS IV 1000 ML 1,000 ML IV SCH ×2 (02:19→04:41)
[2019-01-28 03:20] LABS: BASOPHILS % (AUTO) 0 % (0-10); EOSINOPHILS # (AUTO) 0.7 10^3/uL (0.0-0.3); EOSINOPHILS % (AUTO) 5 % (0-10); HEMATOCRIT 29 % (35-52); HEMOGLOBIN 8.9 G/DL (11.5-16.0); LYMPHOCYTES # (AUTO) 2.9 X 10^3 (1.0-4.0); LYMPHOCYTES % (AUTO) 20 % (12-44); MEAN CORPUSCULAR HEMOGLOBIN 28 PG (25-34); MEAN CORPUSCULAR HGB CONC 30 G/DL (32-36); MEAN CORPUSCULAR VOLUME 91 FL (80-99); MONOCYTES # (AUTO) 1.1 X 10^3 (0.0-1.0); MONOCYTES % (AUTO) 8 % (0-12); NEUTROPHILS # (AUTO) 9.7 X 10^3 (1.8-7.8); NEUTROPHILS % (AUTO) 68 % (42-75); PLATELET COUNT 345 10^3/uL (130-400); RED CELL DISTRIBUTION WIDTH 14.9 % (10.0-14.5); WHITE BLOOD COUNT 14.3 10^3/uL (4.3-11.0)
[2019-01-28 03:40] LABS: BUN/CREATININE RATIO 24; CALCIUM 8.4 MG/DL (8.5-10.1); CARBON DIOXIDE 28 MMOL/L (21-32); CHLORIDE 104 MMOL/L (98-107); GFR ESTIMATED > 60; GLUCOSE 125 MG/DL (70-105); MAGNESIUM 1.8 MG/DL (1.6-2.4); PHOSPHORUS 3.4 MG/DL (2.3-4.7); POTASSIUM 3.8 MMOL/L (3.6-5.0); SODIUM 142 MMOL/L (135-145)
[2019-01-28 04:00] VITALS: BP 121/71
--- NOTE | 2019-01-28 05:33 | Pulmonary Progress Note ---
Subjective Time Seen by a Provider: 10:38 Subjective/Events-last exam Pt appears to be doing better. Sepsis Event Evaluation Height, Weight, BMI Height: 5'2.00" Weight: 156lbs. 1.4oz. 70.272943zy; 30.00 BMI Method: Exam Exam Vital Signs Date Time Temp Pulse Resp B/P (MAP) Pulse Ox O2 Delivery O2 Flow Rate FiO2 01/28/19 04:00 36.0 89 14 121/71 (88) 98 Nasal Cannula 2.00 01/28/19 01:45 91 Nasal Cannula 2.00 01/28/19 01:00 85 01/28/19 00:00 36.1 89 14 126/57 (80) 99 Nasal Cannula 2.00 01/27/19 22:00 90 16 144/74 (97) 96 Nasal Cannula 2.00 01/27/19 21:21 91 Nasal Cannula 2.00 01/27/19 21:00 92 16 146/78 (100) 97 Nasal Cannula 2.00 01/27/19 20:00 Nasal Cannula 2.00 01/27/19 20:00 88 13 95 Nasal Cannula 2.00 01/27/19 20:00 36.1 01/27/19 19:50 82 10 176/87 (116) 100 Nasal Cannula 2.00 01/27/19 19:47 35.6 01/27/19 19:30 82 17 155/68 (97) 100 Nasal Cannula 2.00 01/27/19 19:00 81 01/27/19 19:00 81 14 172/73 (106) 99 Nasal Cannula 2.00 01/27/19 19:00 36.1 01/27/19 17:00 36.4 26 174/77 (109) 100 OxyMask 3 01/27/19 17:00 OxyMask 3 01/27/19 17:00 100 OxyMask 3.00 01/27/19 16:50 14 174/76 (108) 100 OxyMask 3 01/27/19 16:45 OxyMask 3 01/27/19 16:40 16 175/78 (110) 100 OxyMask 3 01/27/19 16:30 OxyMask 6 01/27/19 16:30 16 172/78 (109) 100 OxyMask 6 01/27/19 16:23 86 01/27/19 16:20 36.1 16 155/82 (106) 100 OxyMask 6 01/27/19 16:19 OxyMask 6 01/27/19 16:19 36.1 16 155/82 (106) 100 OxyMask 6 01/27/19 13:02 86 01/27/19 11:30 36.2 86 16 169/72 (104) 98 Nasal Cannula 1.00 01/27/19 08:40 36.5 95 16 156/70 (98) 95 Nasal Cannula 1.00 01/27/19 08:00 96 Nasal Cannula 3.00 01/27/19 07:19 94 Nasal Cannula 2.00 01/27/19 06:48 87 I & O 01/28/19 07:00 Intake Total 25 ml Output Total 0 ml Balance 25 ml Height & Weight Height: 5'2.00" Weight: 156lbs. 1.4oz. 70.959045uf; 30.00 BMI Method: General Appearance: No Apparent Distress, Anxious, Chronically ill HEENT: PERRL/EOMI, Pharynx Normal Neck: Full Range of Motion, Normal Inspection Respiratory: Chest Non Tender, No Accessory Muscle Use, No Respiratory Distress, Crackles (Bilateral lower lobes) Cardiovascular: Regular Rate, Rhythm, No Edema, Normal Peripheral Pulses, Systolic Murmur Capillary Refill: Less Than 3 Seconds Peripheral Pulses: 2+ Radial Pulses (R), 2+ Radial Pulses (L) Gastrointestinal: soft Extremity: Other (No discerning inflammation noted at right foot. Both LE's felt warm and well perfused) Neurologic/Psychiatric: Alert (confused but alert), Oriented x3 (x2), Depressed Affect, Other (Dementia) Skin: Normal Color, Warm/Dry Lymphatic: No Adenopathy Results Lab Laboratory Tests 01/26/19 06:10 01/27/19 06:10 01/27/19 18:28 01/28/19 03:10 Assessment/Plan Assessment/Plan pulmonary edema secondary with grade 1 diastolic dysfunction per echo Lasix Status post stenting of the right SFA Metabolic encephalopathy -Monitor Cellulitis -continue Abx IDDM Dementia Depression PVD A-fib -Cardiology following LON PATTERSON DO Jan 28, 2019 05:33 POS
[2019-01-28] MEDS: inSUlin ASPART (NovoLOG) 1 UNIT/0.01 ML (CHARGE PER UNIT) SC SCH ×2 (05:58→11:00)
[2019-01-28] MEDS: LEVOTHYROXINE 112 MCG (LEVOTHROID) TAB PO SCH (05:58)
--- NOTE | 2019-01-28 07:01 | Diagnostic Imaging Report ---
INDICATION: Dyspnea. COMPARISON: 01/27/2019. FINDINGS: 5 lobe pulmonary opacities have improved suggestive of decreased edema. Pleural fluid volumes may be slightly decreased as well. There is no pneumothorax. There has been no adverse change. IMPRESSION: Improvements in pulmonary densities either decreased edema or pneumonia. Small pleural effusions may have diminished as well. There is no pneumothorax and there is no evidence for adverse change. Dictated by: Dictated on workstation # [id number]
[2019-01-28] MEDS: LIDOCAINE 4% (SALONPAS) PATCH TOP SCH (07:49)
[2019-01-28 08:00] VITALS: BP 118/72
[2019-01-28] MEDS: CEFDINIR 300 MG (OMNICEF) CAP PO SCH (08:14)
[2019-01-28] MEDS: ARTIFICAL TEARS 0.4 ML UNIT DOSE (REFRESH PLUS) OU SCH (08:14)
[2019-01-28] MEDS: DILTIAZEM 120 MG (CARDIZEM CD) CAP PO SCH (08:15)
[2019-01-28] MEDS: fluCOnazole (DIFLUCAN) 100 MG TAB PO SCH (08:15)
[2019-01-28] MEDS: FUROSEMIDE 40 MG (LASIX) TAB PO SCH (08:15)
[2019-01-28] MEDS: ASPIRIN E.C. 81 MG (ECOTRIN) TAB PO SCH (08:15)
[2019-01-28] MEDS: CLOPIDOGREL 75 MG (PLAVIX) TABLET PO SCH (08:15)
[2019-01-28] MEDS: SIMvastatin 40 MG (ZOCOR) TAB PO SCH (08:16)
[2019-01-28] MEDS: GABAPENTIN 300 MG (NEURONTIN) CAP PO SCH (08:22)
--- NOTE | 2019-01-28 08:28 | Anesthesia-General Post-Op ---
General Patient Condition Mental Status/LOC: Same as Preop Cardiovascular: Satisfactory Nausea/Vomiting: Absent Respiratory: Satisfactory Pain: Controlled Complications: Absent Post Op Complications Complications None Follow Up Care/Instructions Patient Instructions None needed. Anesthesia/Patient Condition Patient Condition Patient is doing well, no complaints, stable vital signs, no apparent adverse anesthesia problems. No complications reported per nursing. ANY GE CRNA Jan 28, 2019 08:28 POS
--- NOTE | 2019-01-28 08:49 | Cardiology Progress Note ---
Cardiology SOAP Progress Note Subjective: The patient denies any discomfort in the bilateral lower extremities. Objective: I&O/Vital Signs 01/28/19 01/28/19 01/28/19 01/28/19 00:00 01:00 01:45 04:00 Temp 36.1 36.0 Pulse 89 85 89 Resp 14 14 B/P (MAP) 126/57 (80) 121/71 (88) Pulse Ox 99 91 98 O2 Delivery Nasal Cannula Nasal Cannula Nasal Cannula O2 Flow Rate 2.00 2.00 2.00 01/28/19 01/28/19 01/28/19 01/28/19 07:00 07:31 08:00 08:00 Temp 36.0 Pulse 87 85 Resp 18 B/P (MAP) 118/72 (87) Pulse Ox 98 97 O2 Delivery Nasal Cannula Nasal Cannula Nasal Cannula O2 Flow Rate 2.00 2.00 2.00 01/28/19 00:00 Intake Total 25 ml Output Total 0 ml Balance 25 ml Weight (Pounds): 156 Weight (Ounces): 1.4 Weight (Calculated Kilograms): [id number] Constitutional: appears stated age; No apparent distress; well-developed, well- nourished Respiratory: chest is bilaterally symmetric, lungs clear to auscultation Cardiovascular: regular rate-rhythm, S1 and S2, systolic murmur Gastrointestional: soft, audible bowel sounds; No spleenomegaly Extremities: normal range of motion, non-tender, normal inspection; No clubbing, No cyanosis; no lower extremity edema bilateral; No significant edema Neurologic/Psychiatric: alert, normal mood/affect Skin: normal color, warm/dry Results/Procedures: Labs Laboratory Tests 01/27/19 10:23: Glucometer 170H 01/27/19 11:47: Glucometer 167H 01/27/19 18:09: Glucometer 79 01/27/19 18:28: White Blood Count 14.5H, Red Blood Count 3.52L, Hemoglobin 9.4L, Hematocrit 31L, Mean Corpuscular Volume 89, Mean Corpuscular Hemoglobin 27, Mean Corpuscular Hemoglobin Concent 30L, Red Cell Distribution Width 14.9H, Platelet Count 404H, Mean Platelet Volume 11.5H, Prothrombin Time 14.7, INR Comment 1.1, Activated Partial Thromboplast Time 115*H 01/27/19 22:40: Glucometer 136H 01/28/19 00:21: Activated Partial Thromboplast Time 183*H 01/28/19 03:10: White Blood Count 14.3H, Red Blood Count 3.22L, Hemoglobin 8.9L, Hematocrit 29L, Mean Corpuscular Volume 91, Mean Corpuscular Hemoglobin 28, Mean Corpuscular Hemoglobin Concent 30L, Red Cell Distribution Width 14.9H, Platelet Count 345, Mean Platelet Volume 11.0H, Neutrophils (%) (Auto) 68, Lymphocytes (%) (Auto) 20, Monocytes (%) (Auto) 8, Eosinophils (%) (Auto) 5, Basophils (%) (Auto) 0, Neutrophils # (Auto) 9.7H, Lymphocytes # (Auto) 2.9, Monocytes # (Auto) 1.1H, Eosinophils # (Auto) 0.7H, Basophils # (Auto) 0.0, Sodium Level 142, Potassium Level 3.8, Chloride Level 104, Carbon Dioxide Level 28, Anion Gap 10, Blood Urea Nitrogen 17, Creatinine 0.70, Estimat Glomerular Filtration Rate > 60, BUN/Creatinine Ratio 24, Glucose Level 125H, Calcium Level 8.4L, Phosphorus Level 3.4, Magnesium Level 1.8 01/28/19 08:20: Activated Partial Thromboplast Time 73H Microbiology 01/18/19 Blood Culture - Final, Complete No growth 01/22/19 MRSA Screen - Final, Complete MRSA not isolated 01/22/19 Urine Culture - Final, Complete Eve glabrata A/P: Assessment/Dx: Critical limb ischemia, Mild aortic stenosis, Right foot cellulitis. Atrial fibrillation with rapid ventricular rate, currently in sinus rhythm Plan: Critical limb ischemia, arterial ultrasound shows significant disease in the di stal right SFA and possibility of no flow below the right knee. Severe disease in the left lower extremity as well. Peripheral angiogram 01/21/2019 with occluded right SFA. Revascularization done with balloon angioplasty from the right [employer] to the popliteal artery. At least 2 vessel runoff below the knee. Repeat peripheral angiogram on 01/27/2019. Peripheral angiogram showed total occlusion of the left SFA with no reconstitution. Aggressive balloon angioplasty was done from the anterior tibial artery till the left [employer]TER with successful recanalization with blood flow through an anterior tibial artery to the foot. However residual thrombus was still noted. Reocclusion was also noted of the right SFA with reconstitution in the right popliteal artery and at least one vessel runoff below the knee. Patient was started on IV heparin and kept on IV heparin overnight. This morning 01/28/2019 she denies any discomfort in bilateral lower extremity. On examination there is dopplerable dorsalis pedis pulse bilaterally. The feet are warm. Significant improvement of right lower limb cellulitis with healing of the ulcer. I discussed at length with Dr. leyva and my recommendation is that we do not further intervene. There is no acute emergency and we have achieved our goals of right wound healing and resolution of cellulitis. We have also recanalized the left lower extremity as well. The patient has severe dementia and is not very ambulatory therefore claudication is not a concern. Our major concern was severe critical limb ischemia and postponing amputation as long as possible. Dr. Leyva agrees. We will therefore discontinue aspirin and start Eliquis 5 mg twice a day and continue Plavix long-term. Hopefully on this antiplatelet and Antithrombin stra tegy the patient will do fine from a peripheral vascular point of few as well as oral anticoagulation for stroke prevention in atrial fibrillation as well. Systolic murmur, echocardiogram shows mild aortic stenosis. Atrial fibrillation with rapid ventricular rate, start IV Cardizem. Will discuss with the patient's and care home about possibility of starting oral anticoagulation therapy. Risk of bleeding since the patient will also be on aspirin and Plavix. Therefore oral anticoagulation therapy may not be the best option. Currently in sinus rhythm. No further atrial fibrillation. Eliquis and Plavix long-term. Right foot cellulitis. Significant improvement, deferred to Dr. Leyva and Dr. Amos. I'm happy to see the patient as an outpatient if required. Thank you for your consultation. Please call me if you have any questions. William Aparicio MD, FACP, FACC, FSCAI, FHRS, CCDS Interventional Cardiology Cardiac Electrophysiology Vascular Medicine and Endovascular Interventions Zeke APARICIO MD Jan 28, 2019 08:49 POS
[2019-01-28] MEDS ORDERED: ASPIRIN E.C. 81 MG (ECOTRIN) TAB PO SCH (09:00)
[2019-01-28] MEDS ORDERED: CLOPIDOGREL 75 MG (PLAVIX) TABLET PO SCH (09:00)
[2019-01-28] MEDS ORDERED: ENOXAPARIN 100 MG/1 ML (LOVENOX) SYR SC SCH (09:30)
[2019-01-28] MEDS ORDERED: APIXABAN 5 MG (ELIQUIS) TABLET PO SCH (10:00)
[2019-01-28] MEDS ORDERED: FLUC100T6 PO (10:23)
[2019-01-28] MEDS ORDERED: CEFD300C3 PO (10:23)
[2019-01-28] MEDS ORDERED: HYDR-3816 PO (10:23)
[2019-01-28] MEDS ORDERED: APIX5TAB PO (10:23)
[2019-01-28] MEDS ORDERED: SERT50TA9 PO (10:23)
[2019-01-28] MEDS ORDERED: DILT120C94 PO (10:23)
--- NOTE | 2019-01-28 10:26 | Discharge Summary ---
Discharge Summary Reconcile Patient Problems Problems Reviewed?: Yes Hospital Course Hospital Course Date of Admission: Jan 18, 2019 at 17:05 Admission Diagnosis : Family Physician/Provider: No,Local Physician Date of Discharge: 01/28/19 Discharge Diagnosis: Right foot cellulitis with ulcer, severe peripheral vascular disease status post 2 interventions, new onset atrial fibrillation with RVR, new oral anticoagulation along with Plavix Labs and Pending Lab Test: Laboratory Tests 01/27/19 11:47: Glucometer 167H 01/27/19 18:09: Glucometer 79 01/27/19 18:28: White Blood Count 14.5H, Red Blood Count 3.52L, Hemoglobin 9.4L, Hematocrit 31L, Mean Corpuscular Volume 89, Mean Corpuscular Hemoglobin 27, Mean Corpuscular Hemoglobin Concent 30L, Red Cell Distribution Width 14.9H, Platelet Count 404H, Mean Platelet Volume 11.5H, Prothrombin Time 14.7, INR Comment 1.1, Activated Partial Thromboplast Time 115*H 01/27/19 22:40: Glucometer 136H 01/28/19 00:21: Activated Partial Thromboplast Time 183*H 01/28/19 03:10: White Blood Count 14.3H, Red Blood Count 3.22L, Hemoglobin 8.9L, Hematocrit 29L, Mean Corpuscular Volume 91, Mean Corpuscular Hemoglobin 28, Mean Corpuscular Hemoglobin Concent 30L, Red Cell Distribution Width 14.9H, Platelet Count 345, Mean Platelet Volume 11.0H, Neutrophils (%) (Auto) 68, Lymphocytes (%) (Auto) 20, Monocytes (%) (Auto) 8, Eosinophils (%) (Auto) 5, Basophils (%) (Auto) 0, Neutrophils # (Auto) 9.7H, Lymphocytes # (Auto) 2.9, Monocytes # (Auto) 1.1H, Eosinophils # (Auto) 0.7H, Basophils # (Auto) 0.0, Sodium Level 142, Potassium Level 3.8, Chloride Level 104, Carbon Dioxide Level 28, Anion Gap 10, Blood Urea Nitrogen 17, Creatinine 0.70, Estimat Glomerular Filtration Rate > 60, BUN/Creatinine Ratio 24, Glucose Level 125H, Calcium Level 8.4L, Phosphorus Level 3.4, Magnesium Level 1.8 01/28/19 08:20: Activated Partial Thromboplast Time 73H Microbiology 01/18/19 Blood Culture - Final, Complete No growth 01/22/19 MRSA Screen - Final, Complete MRSA not isolated 01/22/19 Urine Culture - Final, Complete Eve glabrata Home Meds Active Sertraline HCl 50 Mg Tablet 50 Mg PO HS 365 Days Diltiazem 24Hr Cd (Diltiazem HCl) 120 Mg Cap.er.24h 120 Mg PO DAILY 365 Days Eliquis (Apixaban) 5 Mg Tablet 5 Mg PO BID 365 Days Fluconazole 100 Mg Tablet 100 Mg PO DAILY 4 Days Cefdinir 300 Mg Capsule 300 Mg PO BID 4 Days Hydrocodone-Acetamin 7.5-325 (Hydrocodone/Acetaminophen) 1 Each Tablet 1 Tab PO Q4H PRN Reported Simvastatin 40 Mg Tablet 40 Mg PO DAILY Senokot-S Tablet (Sennosides/Docusate Sodium) 1 Each Tablet 1 Tab PO Q12H PRN Santyl (Collagenase) 30 Gm Oint..gm. TP DAILY APPLY TO RIGHT 4TH TOE Refresh Optive Advanced Drops (Carboxymethyl/Glycerin/Poly80) 10 Ml Drops 1 Drop OU QID Ocusoft Lid Scrub (Eyelid Cleanser Combination #5) 1 Each Med..pad 1 Each TOP MOFR APPLY TO EACH EYE TOPICALLY Novolog Flexpen (Insulin Aspart) 300 Units/3 Ml Solution SQ TID 0-99 = 0 100-199 = 4 UNITS 200-299 = 5 UNITS 300-399 = 6 UNITS 400-499 = 7 UNITS 500-599 = 8 UNITS >600 CALL PCP Melatonin 3 Mg Tablet 3 Mg PO HS PRN Salonpas Patch (Methyl Salicylate/Menthol) 1 Each Adh..patch 1 Patch TP DAILY APPLY TO RIGHT FOOT Cefepime HCl 2 Gm Vial 2 Gm IV DAILY START DATE 01-15-19 END DATE 01-25-19 Glucose (Dextrose) 33 Gm Gel.packet 33 Gm PO UD PRN Tylenol (Acetaminophen) 325 Mg Tablet 325 Mg PO Q6H PRN Gabapentin 300 Mg Capsule 300 Mg PO TID Aspirin EC (Aspirin) 81 Mg Tablet.dr 81 Mg PO DAILY Clopidogrel (Clopidogrel Bisulfate) 75 Mg Tablet 75 Mg PO DAILY Lantus (Insulin Glargine,Hum.rec.anlog) 100 Unit/1 Ml Vial 7 Units SC BID Levothyroxine Sodium 112 Mcg Tablet 112 Mcg PO DAILY Furosemide 40 Mg Tablet 40 Mg PO DAILY Follow Up Appt.: Dr. Velarde on 02/01/19 [facility] I certify that SNF services are required to be given on an inpatient basis because of the above named patient's need for residential care on a continuing basis for the conditions(s) for which he/she was receiving inpatient hospital services prior to his/her transfer to the SNF. Nursing Home Facility Order: Nursing Services, Manager Asset-Evaluate & Treat, Physical Therapy-Evaluate & Treat, Speech Language-Evaluate & Treat, Wound Care-Eval/Treat (keep in-between toes try to prevent recurrent ulcers) Oxygen Delivery Method: Nasal Cannula (2L/min) Discharge Diet: ADA Diet Resuscitation Status: Full Code Dulce Velarde Jan 28, 2019 10:23 Discharge Physical Exam General: Alert, Cooperative, Other (confused no change from baseline) Lungs: Clear to Auscultation Heart: Regular Rate Psych/Mental Status: Mood NL DULCE VELARDE DO Jan 28, 2019 10:26 POS
--- NOTE | 2019-01-28 10:27 | Discharge Summary ---
Discharge Summary Hospital Course Was the Problem List Reviewed?: Yes Problems/Dx: (1) Cellulitis of right foot (2) Atrial fibrillation with rapid ventricular response (3) Diabetes mellitus, insulin dependent (IDDM), controlled (4) Presbycusis of both ears (5) Memory deficit (6) CVA (cerebral vascular accident) (7) Falls frequently (8) Hypertension (9) PVD (peripheral vascular disease) Status: Chronic (10) Hypothyroidism (11) NPH (normal pressure hydrocephalus) (12) Depression (13) Anxiety Hospital Course Date of Admission: Jan 18, 2019 at 17:05 Admission Diagnosis : Family Physician/Provider: No,Local Physician Date of Discharge: 01/28/19 Discharge Diagnosis: [ ] Hospital Course: [ ] Labs and Pending Lab Test: Laboratory Tests 01/27/19 11:47: Glucometer 167H 01/27/19 18:09: Glucometer 79 01/27/19 18:28: White Blood Count 14.5H, Red Blood Count 3.52L, Hemoglobin 9.4L, Hematocrit 31L, Mean Corpuscular Volume 89, Mean Corpuscular Hemoglobin 27, Mean Corpuscular Hemoglobin Concent 30L, Red Cell Distribution Width 14.9H, Platelet Count 404H, Mean Platelet Volume 11.5H, Prothrombin Time 14.7, INR Comment 1.1, Activated Partial Thromboplast Time 115*H 01/27/19 22:40: Glucometer 136H 01/28/19 00:21: Activated Partial Thromboplast Time 183*H 01/28/19 03:10: White Blood Count 14.3H, Red Blood Count 3.22L, Hemoglobin 8.9L, Hematocrit 29L, Mean Corpuscular Volume 91, Mean Corpuscular Hemoglobin 28, Mean Corpuscular Hemoglobin Concent 30L, Red Cell Distribution Width 14.9H, Platelet Count 345, M joesph Platelet Volume 11.0H, Neutrophils (%) (Auto) 68, Lymphocytes (%) (Auto) 20, Monocytes (%) (Auto) 8, Eosinophils (%) (Auto) 5, Basophils (%) (Auto) 0, Neutrophils # (Auto) 9.7H, Lymphocytes # (Auto) 2.9, Monocytes # (Auto) 1.1H, Eosinophils # (Auto) 0.7H, Basophils # (Auto) 0.0, Sodium Level 142, Potassium Level 3.8, Chloride Level 104, Carbon Dioxide Level 28, Anion Gap 10, Blood Urea Nitrogen 17, Creatinine 0.70, Estimat Glomerular Filtration Rate > 60, BUN/Creatinine Ratio 24, Glucose Level 125H, Calcium Level 8.4L, Phosphorus Level 3.4, Magnesium Level 1.8 01/28/19 08:20: Activated Partial Thromboplast Time 73H Microbiology 01/18/19 Blood Culture - Final, Complete No growth 01/22/19 MRSA Screen - Final, Complete MRSA not isolated 01/22/19 Urine Culture - Final, Complete Eve glabrata Home Meds Active Sertraline HCl 50 Mg Tablet 50 Mg PO HS 365 Days Diltiazem 24Hr Cd (Diltiazem HCl) 120 Mg Cap.er.24h 120 Mg PO DAILY 365 Days Eliquis (Apixaban) 5 Mg Tablet 5 Mg PO BID 365 Days Fluconazole 100 Mg Tablet 100 Mg PO DAILY 4 Days Cefdinir 300 Mg Capsule 300 Mg PO BID 4 Days Hydrocodone-Acetamin 7.5-325 (Hydrocodone/Acetaminophen) 1 Each Tablet 1 Tab PO Q4H PRN Reported Simvastatin 40 Mg Tablet 40 Mg PO DAILY Senokot-S Tablet (Sennosides/Docusate Sodium) 1 Each Tablet 1 Tab PO Q12H PRN Santyl (Collagenase) 30 Gm Oint..gm. TP DAILY APPLY TO RIGHT 4TH TOE Refresh Optive Advanced Drops (Carboxymethyl/Glycerin/Poly80) 10 Ml Drops 1 Drop OU QID Ocusoft Lid Scrub (Eyelid Cleanser Combination #5) 1 Each Med..pad 1 Each TOP MOFR APPLY TO EACH EYE TOPICALLY Novolog Flexpen (Insulin Aspart) 300 Units/3 Ml Solution SQ TID 0-99 = 0 100-199 = 4 UNITS 200-299 = 5 UNITS 300-399 = 6 UNITS 400-499 = 7 UNITS 500-599 = 8 UNITS >600 CALL PCP Melatonin 3 Mg Tablet 3 Mg PO HS PRN Salonpas Patch (Methyl Salicylate/Menthol) 1 Each Adh..patch 1 Patch TP DAILY APPLY TO RIGHT FOOT Cefepime HCl 2 Gm Vial 2 Gm IV DAILY START DATE 01-15-19 END DATE 01-25-19 Glucose (Dextrose) 33 Gm Gel.packet 33 Gm PO UD PRN Tylenol (Acetaminophen) 325 Mg Tablet 325 Mg PO Q6H PRN Gabapentin 300 Mg Capsule 300 Mg PO TID Aspirin EC (Aspirin) 81 Mg Tablet. 81 Mg PO DAILY Clopidogrel (Clopidogrel Bisulfate) 75 Mg Tablet 75 Mg PO DAILY Lantus (Insulin Glargine,Hum.rec.anlog) 100 Unit/1 Ml Vial 7 Units SC BID Levothyroxine Sodium 112 Mcg Tablet 112 Mcg PO DAILY Furosemide 40 Mg Tablet 40 Mg PO DAILY Discharge Instructions Discharge Diet: ADA Diet Discharge Physical Examination Vital Signs Vital Signs Date Time Temp Pulse Resp B/P (MAP) Pulse Ox O2 Delivery O2 Flow Rate FiO2 01/28/19 08:00 36.0 85 18 118/72 (87) 97 Nasal Cannula 2.00 Allergies: Coded Allergies: hydromorphone (Verified Allergy, Severe, 01/18/19) MAKES HER " CRAZY" PER HER amoxicillin (Verified Allergy, Mild, 01/18/19) HUSBNAD STATES " SHE CANNOT SLEEP" morphine (Verified Allergy, Mild, 01/18/19) MAKES HER "CRAZY" PER HER Discharge Summary Date of Admission Jan 18, 2019 at 17:05 Date of Discharge Discharge Date: Jan 28, 2019 Admission Diagnosis Assessment: Right foot cellulitis failed outpatient abx Severe PVD arterial USG revealed minimal blood supply to the right foot Type 1 DM brittle DKA/Hypoglycemia multiple episodes CVA CAD Depression Dementia Plan: Fall risk Angiogram tomorrow Abx Wound care Discharge Diagnosis Appreciate angiogram procedure High risk for ultimate amputations of the legs (1) Cellulitis of right foot (2) Atrial fibrillation with rapid ventricular response (3) Diabetes mellitus, insulin dependent (IDDM), controlled (4) Presbycusis of both ears (5) Memory deficit (6) CVA (cerebral vascular accident) (7) Falls frequently (8) Hypertension (9) PVD (peripheral vascular disease) Status: Chronic (10) Hypothyroidism (11) NPH (normal pressure hydrocephalus) (12) Depression (13) Anxiety Clinical Quality Measures DVT/VTE Risk/Contraindication: Risk Factor Score Per Nursin RFS Level Per Nursing on Admit: 4+=Very High VERONICA GALVEZ DO Jan 28, 2019 10:27 POS
--- NOTE | 2019-01-28 11:29 | Discharge Summary ---
HERI SPAULDING [facility] 01/28/19 1129: Diagnosis/Chief Complaint Date of Admission Jan 18, 2019 at 17:05 Date of Discharge Discharge Date: Jan 28, 2019 Admission Diagnosis Assessment: Right foot cellulitis failed outpatient abx Severe PVD arterial USG revealed minimal blood supply to the right foot Type 1 DM brittle DKA/Hypoglycemia multiple episodes CVA CAD Depression Dementia Plan: Fall risk Angiogram tomorrow Abx Wound care Primary Care No,Local Physician Discharge Diagnosis (1) Cellulitis of right foot (2) Atrial fibrillation with rapid ventricular response (3) Diabetes mellitus, insulin dependent (IDDM), controlled (4) Presbycusis of both ears (5) Memory deficit (6) CVA (cerebral vascular accident) (7) Falls frequently (8) Hypertension (9) PVD (peripheral vascular disease) Status: Chronic (10) Hypothyroidism (11) NPH (normal pressure hydrocephalus) (12) Depression (13) Anxiety Discharge Summary Discharge Physical Exam Allergies: Coded Allergies: hydromorphone (Verified Allergy, Severe, 01/18/19) MAKES HER " CRAZY" PER HER amoxicillin (Verified Allergy, Mild, 01/18/19) HUSBNAD STATES " SHE CANNOT SLEEP" morphine (Verified Allergy, Mild, 01/18/19) MAKES HER "CRAZY" PER HER Vitals & I&Os Vital Signs Date Time Temp Pulse Resp B/P (MAP) Pulse Ox O2 Delivery O2 Flow Rate FiO2 01/28/19 10:27 96 Nasal Cannula 2.00 01/28/19 08:00 36.0 85 18 118/72 (87) General Appearance: No Apparent Distress, WD/WN Respiratory: Chest Non Tender, Lungs Clear, Normal Breath Sounds, No Accessory Muscle Use, No Respiratory Distress Cardiovascular: Regular Rate, Rhythm, No Edema, Systolic Murmur Extremity: No Calf Tenderness, No Pedal Edema, Other (Mild tenderness right foot) Skin: Normal Color, Warm/Dry Neurologic/Psychiatric: Alert, Normal Mood/Affect, Other (Dementia) Hospital Course Was the Problem List Reviewed?: Yes Pt was direct admit [facility] for cellulitis of right foot related to a chronic healing ulcer between 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 She was treated for the infection that clear up her cellulitis, but also had a workup for PAD with ultrasound that showed occluded femoral artery with minimal flow to distal arteries of right leg. Dr Aparicio performed a PEST CONTROLLER ASSISTANT on the right leg vessels. After the procedure the patient responded well with decreased pain in her legs, but continued to have dementia symptoms and poor glycemic control. 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 Decision was made to manage clots with medication and the patient was discharged back to [facility]. Labs (last 24 hrs) Laboratory Tests 01/27/19 11:47: Glucometer 167H 01/27/19 18:09: Glucometer 79 01/27/19 18:28: White Blood Count 14.5H, Red Blood Count 3.52L, Hemoglobin 9.4L, Hematocrit 31L, Mean Corpuscular Volume 89, Mean Corpuscular Hemoglobin 27, Mean Corpuscular Hemoglobin Concent 30L, Red Cell Distribution Width 14.9H, Platelet Count 404H, Mean Platelet Volume 11.5H, Prothrombin Time 14.7, INR Comment 1.1, Activated Partial Thromboplast Time 115*H 01/27/19 22:40: Glucometer 136H 01/28/19 00:21: Activated Partial Thromboplast Time 183*H 01/28/19 03:10: White Blood Count 14.3H, Red Blood Count 3.22L, Hemoglobin 8.9L, Hematocrit 29L, Mean Corpuscular Volume 91, Mean Corpuscular Hemoglobin 28, Mean Corpuscular Hemoglobin Concent 30L, Red Cell Distribution Width 14.9H, Platelet Count 345, Mean Platelet Volume 11.0H, Neutrophils (%) (Auto) 68, Lymphocytes (%) (Auto) 20, Monocytes (%) (Auto) 8, Eosinophils (%) (Auto) 5, Basophils (%) (Auto) 0, Neutrophils # (Auto) 9.7H, Lymphocytes # (Auto) 2.9, Monocytes # (Auto) 1.1H, Eosinophils # (Auto) 0.7H, Basophils # (Auto) 0.0, Sodium Level 142, Potassium Level 3.8, Chloride Level 104, Carbon Dioxide Level 28, Anion Gap 10, Blood Urea Nitrogen 17, Creatinine 0.70, Estimat Glomerular Filtration Rate > 60, BUN/Creatinine Ratio 24, Glucose Level 125H, Calcium Level 8.4L, Phosphorus Level 3.4, Magnesium Level 1.8 01/28/19 08:20: Activated Partial Thromboplast Time 73H 01/28/19 10:47: Glucometer 73 Microbiology 01/18/19 Blood Culture - Final, Complete No growth 01/22/19 MRSA Screen - Final, Complete MRSA not isolated 01/22/19 Urine Culture - Final, Complete Eve glabrata Patient resulted labs reviewed. Pending Labs Laboratory Tests 01/28/19 08:20: Activated Partial Thromboplast Time 73 01/28/19 10:47: Glucometer 73 Discharge Home Medications: Active Scripts Active Sertraline HCl 50 Mg Tablet 50 Mg PO HS 365 Days Diltiazem 24Hr Cd (Diltiazem HCl) 120 Mg Cap.er.24h 120 Mg PO DAILY 365 Days Eliquis (Apixaban) 5 Mg Tablet 5 Mg PO BID 365 Days Fluconazole 100 Mg Tablet 100 Mg PO DAILY 4 Days Cefdinir 300 Mg Capsule 300 Mg PO BID 4 Days Hydrocodone-Acetamin 7.5-325 (Hydrocodone/Acetaminophen) 1 Each Tablet 1 Tab PO Q4H PRN Reported Senokot-S Tablet (Sennosides/Docusate Sodium) 1 Each Tablet 1 Tab PO Q12H PRN Santyl (Collagenase) 30 Gm Oint..gm. TP DAILY APPLY TO RIGHT 4TH TOE Refresh Optive Advanced Drops (Carboxymethyl/Glycerin/Poly80) 10 Ml Drops 1 Drop OU QID Ocusoft Lid Scrub (Eyelid Cleanser Combination #5) 1 Each Med..pad 1 Each TOP MOFR APPLY TO EACH EYE TOPICALLY Novolog Flexpen (Insulin Aspart) 300 Units/3 Ml Solution SQ TID 0-99 = 0 100-199 = 4 UNITS 200-299 = 5 UNITS 300-399 = 6 UNITS 400-499 = 7 UNITS 500-599 = 8 UNITS >600 CALL PCP Melatonin 3 Mg Tablet 3 Mg PO HS PRN Salonpas Patch (Methyl Salicylate/Menthol) 1 Each Adh..patch 1 Patch TP DAILY APPLY TO RIGHT FOOT Glucose (Dextrose) 33 Gm Gel.packet 33 Gm PO UD PRN Tylenol (Acetaminophen) 325 Mg Tablet 325 Mg PO Q6H PRN Gabapentin 300 Mg Capsule 300 Mg PO TID Clopidogrel (Clopidogrel Bisulfate) 75 Mg Tablet 75 Mg PO DAILY Lantus (Insulin Glargine,Hum.rec.anlog) 100 Unit/1 Ml Vial 7 Units SC BID Levothyroxine Sodium 112 Mcg Tablet 112 Mcg PO DAILY Furosemide 40 Mg Tablet 40 Mg PO DAILY Instructions to patient/family Please see electronic discharge instructions given to patient. Clinical Quality Measures DVT/VTE Risk/Contraindication: Risk Factor Score Per Nursin RFS Level Per Nursing on Admit: 4+=Very High DULCE GALVEZ DO 01/28/19 1230: Diagnosis/Chief Complaint Discharge Diagnosis (1) Cellulitis of right foot (2) Toe ulcer due to DM Status: Acute (3) Atrial fibrillation with rapid ventricular response (4) Diabetes mellitus, insulin dependent (IDDM), controlled (5) Presbycusis of both ears (6) Myocardial infarct, old (7) Memory deficit (8) CVA (cerebral vascular accident) (9) Falls frequently (10) Hypertension (11) PVD (peripheral vascular disease) Status: Chronic (12) Hypothyroidism (13) NPH (normal pressure hydrocephalus) (14) Depression (15) Anxiety Discharge Summary Discharge Physical Exam Allergies: Coded Allergies: hydromorphone (Verified Allergy, Severe, 01/18/19) MAKES HER " CRAZY" PER HER amoxicillin (Verified Allergy, Mild, 01/18/19) HUSBNAD STATES " SHE CANNOT SLEEP" morphine (Verified Allergy, Mild, 01/18/19) MAKES HER "CRAZY" PER HER General Appearance: No Apparent Distress Respiratory: Lungs Clear Cardiovascular: Regular Rate, Rhythm Neurologic/Psychiatric: Alert Hospital Course Was the Problem List Reviewed?: Yes See above hospital course Discussion & Recommendations Discharge Planning: <30 minutes discharge planning Supervisory-Addendum Brief Verification & Attestation Participated in pt care: history, MDM, physical Personally performed: exam, history, MDM, supervision of care Care discussed with: Medical Student Procedures: n/a Results interpretation: Verified all documentation Verification and Attestation of Medical Student E/M Service A medical student performed and documented this service in my presence. I reviewed and verified all information documented by the medical student and made modifications to such information, when appropriate. I personally performed the physical exam and medical decision making. Dulce Galvez, Jan 28, 2019,12:30 HER[facility]PAULDING [facility] Jan 28, 2019 11:29 DULCE HIDALGO DO Jan 28, 2019 12:30 POS
--- NOTE | 2019-01-28 11:38 | NUR ---
CARIDAD/GAIL spoke with the patient's nurse who has called [facility] to set up a case picker time for today 01/28. Information was faxed to facility. They did not have a case picker time yet but will call back with a time. CARIDAD/GAIL spoke with the patient's daughter Karissa to let her know the patient was leaving and that [employer] will provide the transportation. The nurse will call Karissa to let her know the case picker time. No other needs at this time. Addendum: 01/28/19 at 1142 by TRINA REYNOLDS reviewed / approved
[2019-01-28 12:00] VITALS: BP 122/77
--- NOTE | 2019-01-28 12:20 | NUR ---
Spo2 86% on Room air at rest.
--- NOTE | 2019-01-28 12:25 | NUR ---
spo2 86% on room air @ rest. replaced o2 @ 2 lpm. spo2 increased to 91%. Addendum: 01/28/19 at 1225 by SONJA DE ANDA RT Amended: Links added.
== END 2019-01-28 13:50 | DRG 252 ==
LOC: 4TH 17:05 → ICU 01-21 12:58 → 4TH 01-21 23:38 → ICU 01-22 14:39 → 4TH 01-25 08:09 → ICU 01-27 16:55 → CSD 01-27 20:09
PROVIDERS: ADMIT Internal Medicine; ATTEND Internal Medicine
PROC: 047K3ZZ Dilation of Right Femoral Artery, Percutaneous Approach (ICD-10-PCS; principal; 2019-01-21)
PROC: 047M3ZZ Dilation of Right Popliteal Artery, Percutaneous Approach (ICD-10-PCS; 2019-01-21)
PROC: B41D1ZZ Fluoroscopy of Aorta and Bilateral Lower Extremity Arteries using Low Osmolar Contrast (ICD-10-PCS; 2019-01-21)
PROC: B4181ZZ Fluoroscopy of Bilateral Renal Arteries using Low Osmolar Contrast (ICD-10-PCS; 2019-01-21)
PROC: 047L3ZZ Dilation of Left Femoral Artery, Percutaneous Approach (ICD-10-PCS; 2019-01-27)
PROC: 047Q3ZZ Dilation of Left Anterior Tibial Artery, Percutaneous Approach (ICD-10-PCS; 2019-01-27)
PROC: 047N3ZZ Dilation of Left Popliteal Artery, Percutaneous Approach (ICD-10-PCS; 2019-01-27)
DX: E10.51 Type 1 diabetes mellitus with diabetic peripheral angiopathy without gangrene (principal); T82.856A Stenosis of peripheral vascular stent, initial encounter; I70.203 Unspecified atherosclerosis of native arteries of extremities, bilateral legs; L03.115 Cellulitis of right lower limb; E10.621 Type 1 diabetes mellitus with foot ulcer; L97.519 Non-pressure chronic ulcer of other part of right foot with unspecified severity; G93.41 Metabolic encephalopathy; B37.49 Other urogenital candidiasis; G91.2 (Idiopathic) normal pressure hydrocephalus; E10.43 Type 1 diabetes mellitus with diabetic autonomic (poly)neuropathy; L89.619 Pressure ulcer of right heel, unspecified stage; I25.10 Atherosclerotic heart disease of native coronary artery without angina pectoris; I10 Essential (primary) hypertension; E87.6 Hypokalemia; E78.5 Hyperlipidemia, unspecified; F03.90 Unspecified dementia, unspecified severity, without behavioral disturbance, psychotic disturbance, mood disturbance, and anxiety; E03.9 Hypothyroidism, unspecified; H54.7 Unspecified visual loss; F41.9 Anxiety disorder, unspecified; F32.9 Major depressive disorder, single episode, unspecified; R01.1 Cardiac murmur, unspecified; R29.6 Repeated falls; R41.3 Other amnesia; H91.13 Presbycusis, bilateral; I48.0 Paroxysmal atrial fibrillation; I35.2 Nonrheumatic aortic (valve) stenosis with insufficiency; E10.649 Type 1 diabetes mellitus with hypoglycemia without coma; D64.9 Anemia, unspecified; I25.2 Old myocardial infarction; Z79.4 Long term (current) use of insulin
CPT/HCPCS: 36415; 36569; 71045; 75625; 75716; 76937; 78315; 80048; 80053; 80202; 81000; 82962; 83735; 83880; 84100; 84484; 85007; 85014; 85018; 85025; 85027; 85347; 85610; 85730; 87040; 87081; 87088; 87106; 93005; 93306; 93925; 94640; 94760; 94761

== ENCOUNTER → 2020-01-24 | Outpatient (CLI) | payer OTHER, MEDICARE ==
[~2020-01-24] MED LIST changes: +ACET325T38 PO; +APIX5TAB PO; +ASPI-1238 PO; -ASPI-983 PO; +CARB10DR OU; +CEFD300C3 PO; +CEFE2VIA5 IV; +COLL30OI TP; +DEXT33GE7 PO; +DILT120C88 PO; +EYEL1MED TOP; +FLUC100T6 PO; +GABA-488 PO; +HYDR-34 PO; +INSU100I14 SQ; -MECL-106 PO; +MECL-149 PO; +MELA3TAB39 PO; +METH1ADH5 TP; +SENN-40 PO; +SIMV40TA25 PO
== END ==
LOC: GIR 10:38
PROVIDERS: ATTEND Internal Medicine
DX: R53.83 Other fatigue (principal); Z20.828 Contact with and (suspected) exposure to other viral communicable diseases
CPT/HCPCS: 87635

== ENCOUNTER 2020-08-06 17:43 | Inpatient (IN) | payer MEDICARE, OTHER ==
[2020-08-06] VITALS (10 sets, daily range): BP systolic 95–147; BP diastolic 54–94
[~2020-08-06 17:43] MED LIST changes: +SERT-413 PO; -SERT50TA9 PO
[2020-08-06] MEDS ORDERED: WATER (STERILE) FOR INJ 10 ML BTL INJ PRN (17:45)
[2020-08-06] MEDS ORDERED: CALCIUM CARBONATE 500 MG (TUMS) TAB.CHEW PO PRN (17:45)
[2020-08-06] MEDS ORDERED: ACETAMINOPHEN 500 MG TAB (TYLENOL) PO PRN (17:45)
[2020-08-06] MEDS ORDERED: HEParin 1000 UNIT/ML (10ML VIAL) FOR BOLUS IV SCH (17:45)
[2020-08-06] MEDS ORDERED: ZIPRASIDONE 20 MG INJ (GEODON) VIAL IM PRN (17:45)
[2020-08-06] MEDS ORDERED: MELATONIN 3 MG TABLET PO PRN (17:45)
[2020-08-06] MEDS ORDERED: DOCUSATE SODIUM 100 MG (COLACE) CAP PO PRN (17:45)
[2020-08-06] MEDS ORDERED: HYDROcodone/APAP 5 MG/325 MG (LORTAB) TAB PO PRN (17:45)
[2020-08-06] MEDS ORDERED: HALOPERIDOL 5 MG/ML (HALDOL) VIAL IM PRN (17:45)
[2020-08-06] MEDS ORDERED: LOPERAMIDE 2 MG (IMODIUM) TABLET PO PRN (17:45)
[2020-08-06] MEDS ORDERED: ONDANSETRON 4 MG/2 ML (SDV) Z0FRAN IVP PRN (17:45)
[2020-08-06] MEDS ORDERED: LORazepam INJ 2 MG/ML (ATIVAN) VIAL IVP PRN (17:45)
[2020-08-06] MEDS ORDERED: diphenhydrAMINE 25 MG TAB (BENADRYL) PO PRN (17:45)
[2020-08-06] MEDS ORDERED: CLOPIDOGREL 75 MG (PLAVIX) TABLET PO NR (18:45)
[2020-08-06 20:18] LABS: BASOPHILS % (AUTO) 1 % (0-10); EOSINOPHILS # (AUTO) 0.6 10^3/uL (0.0-0.3); EOSINOPHILS % (AUTO) 7 % (0-10); HEMATOCRIT 38 % (35-52); HEMOGLOBIN 11.8 g/dL (11.5-16.0); LYMPHOCYTES # (AUTO) 2.6 10^3/uL (1.0-4.0); LYMPHOCYTES % (AUTO) 31 % (12-44); MEAN CORPUSCULAR HEMOGLOBIN 28 pg (25-34); MEAN CORPUSCULAR HGB CONC 31 g/dL (32-36); MEAN CORPUSCULAR VOLUME 89 fL (80-99); MEAN PLATELET VOLUME 11.7 fL (9.0-12.2); MONOCYTES # (AUTO) 0.8 10^3/uL (0.0-1.0); MONOCYTES % (AUTO) 10 % (0-12); NEUTROPHILS # (AUTO) 4.2 10^3/uL (1.8-7.8); NEUTROPHILS % (AUTO) 51 % (42-75); PLATELET COUNT 241 10^3/uL (130-400); WHITE BLOOD COUNT 8.2 10^3/uL (4.3-11.0)
[2020-08-06 20:31] LABS: INR 1.3 (0.8-1.4)
[2020-08-06 20:38] LABS: ALBUMIN 3.6 GM/DL (3.2-4.5); BILIRUBIN,TOTAL 0.2 MG/DL (0.1-1.0); CREATININE SERUM 1.08 MG/DL (0.60-1.30); POTASSIUM 4.1 MMOL/L (3.6-5.0); TOTAL PROTEIN 7.1 GM/DL (6.4-8.2)
--- NOTE | 2020-08-06 20:45 | Progress Note ---
Progress Note Pt is a 74 year old F presenting for right leg pain. Pt has been having a lot of pain in her legs. I asked about the story with Dr. Barraza and he has been sick and not expected in for awhile and that is why they cannot see him. Pt stated that her right leg hurts the worst and has been hurting the longest but now her left leg is hurting. They did do an ultrasound and a CT scan over in [place]. They did not find any blockage but pt's was trying to tell them it was up higher. Pt went over to [place] last Thursday, August 01. Pt stated it did not hurt on the left side when pressure was applied by me, but it did on the right side. Pt's knows she is in pain. I stated we have a couple of options. I stated we can put her in the hospital out her and put her on a blood thinner through her IV, can do an ultrasound again, and if need be do a CT scan. Pt's they are up to do anything. I stated I am trying to figure out where she would be better served here. Pt stated she thinks she needs to have her legs taken off and I stated no. I stated the two options are now continuing taking her pain pills and figuring something out whoever is covering Dr. Barraza or we can put her in the hospital here and put an IV with blood thinner. I stated Dr. Menendez does do interventions and he could take a look. I stated the problem is loosing Dr. Barraza. Pt stated that her hands are numb as well, which I stated would be neuropathy and unrelated with her legs. I stated I am going to call Dr. Menendez. I stated I am going to admit her into the hospital over here and Dr. Menendez will take a look at her leg. Pt's asked if it was real powerful and I stated it was just the Heprin. I stated there is no visitor restrictions so pt's will be able to be with her. Scribed by: Lindy Hale. VERONICA GALVEZ DO August 06, 2020 20:45
[2020-08-06] MEDS: NS IV 1000 ML 1,000 ML IV SCH (20:55)
[2020-08-06] MEDS: SENNA W/DOCUSATE (SENOKOT S) TABLET PO SCH (20:56)
[2020-08-06] MEDS: HEParin 1000 UNIT/ML (10ML VIAL) FOR BOLUS IV SCH (20:58)
[2020-08-06] MEDS: HEParin DRIP 25000 UNIT/500ML 500 ML IV SCH (21:00)
[2020-08-06] MEDS: inSUlin ASPART (NovoLOG) 1 UNIT/0.01 ML (CHARGE PER UNIT) SC SCH (21:32)
[2020-08-06] MEDS: ALPRAZolam 0.25 MG (XANAX) TAB PO PRN (22:21)
[2020-08-07] VITALS: BP 116/106
[2020-08-07 01:26] LABS: BASOPHILS # (AUTO) 0.1 10^3/uL (0.0-0.1); BASOPHILS % (AUTO) 1 % (0-10); EOSINOPHILS # (AUTO) 0.7 10^3/uL (0.0-0.3); EOSINOPHILS % (AUTO) 7 % (0-10); HEMATOCRIT 37 % (35-52); HEMOGLOBIN 11.5 g/dL (11.5-16.0); LYMPHOCYTES # (AUTO) 4.1 10^3/uL (1.0-4.0); LYMPHOCYTES % (AUTO) 42 % (12-44); MEAN CORPUSCULAR HEMOGLOBIN 28 pg (25-34); MEAN CORPUSCULAR HGB CONC 31 g/dL (32-36); MEAN CORPUSCULAR VOLUME 88 fL (80-99); MEAN PLATELET VOLUME 11.6 fL (9.0-12.2); MONOCYTES # (AUTO) 0.9 10^3/uL (0.0-1.0); MONOCYTES % (AUTO) 9 % (0-12); NEUTROPHILS % (AUTO) 41 % (42-75); PLATELET COUNT 227 10^3/uL (130-400); WHITE BLOOD COUNT 9.7 10^3/uL (4.3-11.0)
[2020-08-07 01:36] LABS: CHLORIDE 105 MMOL/L (98-107); POTASSIUM 4.3 MMOL/L (3.6-5.0); SODIUM 141 MMOL/L (135-145)
[2020-08-07 01:37] LABS: CALCIUM 8.8 MG/DL (8.5-10.1)
[2020-08-07 01:38] LABS: GLUCOSE 119 MG/DL (70-105); TOTAL PROTEIN 6.4 GM/DL (6.4-8.2)
[2020-08-07 01:40] LABS: BILIRUBIN,TOTAL 0.2 MG/DL (0.1-1.0); CARBON DIOXIDE 23 MMOL/L (21-32)
[2020-08-07 01:42] LABS: ALKALINE PHOSPHATASE 118 U/L (40-136); CREATININE SERUM 0.87 MG/DL (0.60-1.30); GFR ESTIMATED > 60
[2020-08-07 01:43] LABS: BUN/CREATININE RATIO 37
[2020-08-07 01:45] LABS: ALANINE AMINOTRANSFERASE 27 U/L (0-55)
[2020-08-07 01:54] LABS: ALBUMIN 3.4 GM/DL (3.2-4.5)
[2020-08-07] MEDS: fentaNYL INJ 100 MCG/2 ML AMP IVP PRN (02:10)
[2020-08-07 04:00] VITALS: BP 150/61
--- NOTE | 2020-08-07 05:10 | History & Physical ---
History of Present Illness HPI/Chief Complaint CC: Ischemic leg HPI: This is a 74[facility] clinic [facility] with a PMH of dementia and multiple procedures with stents and angioplasties of the lower extremities by Dr. Barraza who presented to my office with increasing right leg pain, she had gone to [place], CT scan and arterial ultrasound revealed no evidence of any blockage but last week when Dr. Braraza was unavailable but she worsened to the point of coming to my office, I made the decision with Dr. Menendez to start a Heparin drip for presumed ischemic limb, arterial ultrasound ordered and Dr. Menendez assessed her today, found to have a pulse in the right lower extremity but will certainly evaluate for any type of modifiable stenosis in a procedure tomorrow. We will restart all of her home medications after verifying with her . Currently she is doing well, did not require any anti-psychotics for any confusion last night. Source: patient, family, RN/MD, old records Exam Limitations: no limitations Date Seen 08/07/20 Time Seen by a Provider: 09:00 Attending Physician Dulce Galvez DO PCP Dulce Galvez DO Referring Physician Date of Admission August 06, 2020 at 18:42 Home Medications & Allergies Home Medications Reviewed patient Home Medication Reconciliation performed by pharmacy medication reconciliations dietetic technician registered and/or nursing. Patients Allergies have been reviewed. Allergies Allergies Coded Allergies hydromorphone (Verified Allergy, Severe, 01/18/19) MAKES HER " CRAZY" PER HER amoxicillin (Verified Allergy, Mild, 01/18/19) HUSBNAD STATES " SHE CANNOT SLEEP" morphine (Verified Allergy, Mild, 01/18/19) MAKES HER "CRAZY" PER HER Past Iorspfy-Getcqa-Haqgdd Hx Past Med/Social Hx: Reviewed Nursing Past Med/Soc Hx, Reviewed and Corrections made Patient Social History Marrital Status: Employed/Student: retired Alcohol Use: Denies Use Smoking Status: Never a Smoker Recent Hopitalizations: No Immunizations Up To Date Pediatric: No Date of Pneumonia Vaccine: Sep 10, 2016 Seasonal Allergies Seasonal Allergies: Yes Past Medical History Surgeries: Orthopedic, Vascular Surgery KIDNEY TRIMMER shunts Currently Using CPAP: No Currently Using BIPAP: No Cardiac: Coronary Artery Disease, High Cholesterol, Hypertension, Peripheral Vascular Neurological: Dementia, Neuropathy, Stroke, TIA Genitourinary: Bladder Infection Musculoskeletal: Foot Drop, Spasms Endocrine: Diabetes, Insulin dep, Hypothyroidsim Hearing Impairment: Hard of Hearing Psychosocial: Depression History of Blood Disorders: No Family History Cardiovascular disease 19 FATHER Diabetes mellitus 19 FATHER Headache disorder 19 MOTHER Heart Disease, Diabetes, Migraines Review of Systems Constitutional: see HPI, malaise, weakness Musculoskeletal: muscle pain, muscle twitching, muscle weakness Physical Exam Physical Exam Vital Signs Vital Signs - First Documented 08/06/20 08/07/20 19:00 00:12 Temp 36.4 Pulse 77 Resp 19 B/P (MAP) 102/54 (70) Pulse Ox 96 O2 Delivery Room Air Capillary Refill : Height, Weight, BMI Height: 5'2.00" Weight: 156lbs. 1.4oz. [id number]; 30.00 BMI Method: General Appearance: No Apparent Distress, WD/WN, Chronically ill Eyes: Bilateral Eye Normal Inspection, Bilateral Eye PERRL HEENT: PERRL/EOMI, Normal ENT Inspection, Pharynx Normal Neck: Full Range of Motion, Normal Inspection, Non Tender, Supple, Carotid Bruit Respiratory: Chest Non Tender, Lungs Clear, Normal Breath Sounds, No Accessory Muscle Use, No Respiratory Distress Cardiovascular: Regular Rate, Rhythm, No Edema, No Gallop, No JVD, Normal Peripheral Pulses, Systolic Murmur Gastrointestinal: Normal Bowel Sounds, No Organomegaly, No Pulsatile Mass, Non Tender, Soft Back: Normal Inspection, No CVA Tenderness, No Vertebral Tenderness Extremity: Normal Capillary Refill, Normal Inspection, Normal Range of Motion, Non Tender, Calf Tenderness Neurologic/Psychiatric: Alert, Oriented x3, No Motor/Sensory Deficits, Normal Mood/Affect, Disoriented Skin: Normal Color, Warm/Dry Lymphatic: No Adenopathy Results Results/Procedures Labs Laboratory Tests 08/06/20 20:10 08/07/20 01:16 Patient resulted labs reviewed. Assessment/Plan Admission Diagnosis Assessment: Ischemic right leg with h/o multiple PVD interventions Dementia Severe aortic stenosis DM Type 1 HTN HLP CAD CVA hx Plan: Home meds Appreciate Dr Gemma BENAVIDES Hep gtts Admission Status: Inpatient Order (span 2 midnights) Reason for Inpatient Admission: ischemic leg Diagnosis/Problems Diagnosis/Problems (1) Ischemic leg pain (2) KIDNEY TRIMMER (ventriculoperitoneal) shunt status (3) Autonomic dysfunction with type 2 diabetes mellitus (4) Presbycusis of both ears (5) Memory deficit (6) CVA (cerebral vascular accident) (7) Hypertension (8) PVD (peripheral vascular disease) Status: Chronic (9) Hypothyroidism (10) Anxiety (11) Depression Clinical Quality Measures DVT/VTE Risk/Contraindication: Contraindications-Mechi: Other *list below* Other: ischemic legs DULCE GALVEZ DO August 07, 2020 05:10
[2020-08-07] MEDS: inSUlin ASPART (NovoLOG) 1 UNIT/0.01 ML (CHARGE PER UNIT) SC SCH ×4 (06:14→20:48)
[2020-08-07] MEDS: NS IV 1000 ML 1,000 ML IV SCH ×3 (06:15→23:05)
--- NOTE | 2020-08-07 07:49 | Consultation-Cardiology ---
HPI-Cardiology Cardiology Consultation Date of Consultation 08/07/20 Date of Admission Time Seen by Provider: 07:43 Indication: Critical limb ischemia HPI 74 years old lady with advanced dementia, she is a poor historian, history was obtained by reviewing her record. On my evaluation she was laying down in bed. She reported pain all over mainly in her neck and shoulder and arms, admit having pain in her legs, said it started in the right leg but now she is having pain in both lower extremities. She denied any chest pain. No syncope. Had extensive peripheral arterial disease, was seen initially and followed with Dr. Aparicio then switched to Dr. Barraza. They have been trying to see Dr. Barraza but were unsuccessful at this time Home Medications & Allergies Allergies: Coded Allergies: hydromorphone (Verified Allergy, Severe, 01/18/19) MAKES HER " CRAZY" PER HER amoxicillin (Verified Allergy, Mild, 01/18/19) HUSBNAD STATES " SHE CANNOT SLEEP" morphine (Verified Allergy, Mild, 01/18/19) MAKES HER "CRAZY" PER HER Home Medication List Reviewed: Yes [id number]-[id number]-Cgwwmf Hx Patient Social History Marital Status: Employed/Student: retired Recent Hopitalizations: No Have you traveled recently?: No Immunizations Up To Date Date of Pneumonia Vaccine: Sep 10, 2016 Past Medical History Discussed below Family Medical History Significant Family History: Heart Disease, Diabetes, Migraines Family History: Cardiovascular disease 19 FATHER Diabetes mellitus 19 FATHER Headache disorder 19 MOTHER Review of Systems-General Review of Systems Constitutional: see HPI, malaise, weakness EENTM: see HPI, no symptoms reported Respiratory: no symptoms reported, see HPI Cardiovascular: see HPI; No chest pain, No edema, No Hx of Intervention, No palpitations, No syncope; vascular heart diseas; No other Gastrointestinal: no symptoms reported, see HPI Genitourinary: no symptoms reported, see HPI Musculoskeletal: no symptoms reported, see HPI, back pain, joint pain, muscle pain, muscle stiffness Skin: no symptoms reported, see HPI Psychiatric/Neurological: No Symptoms Reported, See HPI Reviewed Test Results Reviewed Test Results Lab Laboratory Tests Test 08/06/20 20:10 08/07/20 01:16 08/07/20 06:14 Range/Units White Blood Count 8.2 9.7 4.3-11.0 10^3/uL Red Blood Count 4.23 4.16 3.80-5.11 10^6/uL Hemoglobin 11.8 11.5 11.5-16.0 g/dL Hematocrit 38 37 35-52 % Mean Corpuscular Volume 89 88 80-99 fL Mean Corpuscular Hemoglobin 28 28 25-34 pg Mean Corpuscular Hemoglobin Concent 31 L 31 L 32-36 g/dL Red Cell Distribution Width 13.9 13.9 10.0-14.5 % Platelet Count 241 227 130-400 10^3/uL Mean Platelet Volume 11.7 11.6 9.0-12.2 fL Immature Granulocyte % (Auto) 0 1 % Neutrophils (%) (Auto) 51 41 L 42-75 % Lymphocytes (%) (Auto) 31 42 12-44 % Monocytes (%) (Auto) 10 9 0-12 % Eosinophils (%) (Auto) 7 7 0-10 % Basophils (%) (Auto) 1 1 0-10 % Neutrophils # (Auto) 4.2 4.0 1.8-7.8 10^3/uL Lymphocytes # (Auto) 2.6 4.1 H 1.0-4.0 10^3/uL Monocytes # (Auto) 0.8 0.9 0.0-1.0 10^3/uL Eosinophils # (Auto) 0.6 H 0.7 H 0.0-0.3 10^3/uL Basophils # (Auto) 0.0 0.1 0.0-0.1 10^3/uL Immature Granulocyte # (Auto) 0.0 0.1 0.0-0.1 10^3/uL Prothrombin Time 17.0 H 12.2-14.7 SEC INR Comment 1.3 0.8-1.4 Activated Partial Thromboplast Time 35 > 200 *H 24-35 SEC Sodium Level 141 141 135-145 MMOL/L Potassium Level 4.1 4.3 3.6-5.0 MMOL/L Chloride Level 104 105 98-107 MMOL/L Carbon Dioxide Level 27 23 21-32 MMOL/L Anion Gap 10 13 5-14 MMOL/L Blood Urea Nitrogen 34 H 32 H 7-18 MG/DL Creatinine 1.08 0.87 0.60-1.30 MG/DL Estimat Glomerular Filtration Rate 50 > 60 BUN/Creatinine Ratio 31 37 Glucose Level 128 H 119 H 70-105 MG/DL Calcium Level 9.0 8.8 8.5-10.1 MG/DL Corrected Calcium 9.3 9.3 8.5-10.1 MG/DL Total Bilirubin 0.2 0.2 0.1-1.0 MG/DL Aspartate Amino Transf (AST/SGOT) 17 26 5-34 U/L Alanine Aminotransferase (ALT/SGPT) 22 27 0-55 U/L Alkaline Phosphatase 121 118 40-136 U/L Total Protein 7.1 6.4 6.4-8.2 GM/DL Albumin 3.6 3.4 3.2-4.5 GM/DL Glucometer 100 70-110 MG/DL Physical Exam Physical Exam Vital Signs Vital Signs - First Documented 08/06/20 08/07/20 19:00 00:12 Temp 36.4 Pulse 77 Resp 19 B/P (MAP) 102/54 (70) Pulse Ox 96 O2 Delivery Room Air Capillary Refill : Height, Weight, BMI Height: 5'2.00" Weight: 156lbs. 1.4oz. [id number]; 30.00 BMI Method: General Appearance: No Apparent Distress, WD/WN Eyes: Bilateral Eye Normal Inspection, Bilateral Eye PERRL, Bilateral Eye EOMI HEENT: PERRL/EOMI, TMs Normal, Normal ENT Inspection, Pharynx Normal, Moist Mucous Membranes Neck: Full Range of Motion, Normal Inspection, Non Tender, Supple, Carotid Bruit Respiratory: Chest Non Tender, Normal Breath Sounds, No Accessory Muscle Use, No Respiratory Distress Cardiovascular: Regular Rate, Rhythm, No Edema, No Gallop, No JVD, Systolic Murmur, Other (Dorsalis pedis pulse bilaterally are noticeable by Doppler) Gastrointestinal: Normal Bowel Sounds, No Organomegaly, No Pulsatile Mass, Non Tender, Soft Back: Normal Inspection, No CVA Tenderness, No Vertebral Tenderness Extremity: Normal Capillary Refill, Normal Inspection, Normal Range of Motion, No Pedal Edema Neurologic/Psychiatric: Alert, Oriented x3, No Motor/Sensory Deficits, Normal Mood/Affect Skin: Normal Color, Warm/Dry Lymphatic: No Adenopathy A/P-Cardiology Admission Diagnosis Critical limb ischemia Peripheral arterial disease Paroxysmal atrial fibrillation Hypertension Assessment/Plan Critical limb ischemia, had extensive history in the past, multiple interventions done by Dr. Aparicio in the past then had multiple stents in her lower extremities with Dr. Barraza. Started to have lower extremities pain, have generalized achiness. Diminished pulse, I was able to detect dorsalis pedis bilaterally with Doppler. Faint pulse. Mild aortic valve stenosis, monitor, evaluate 2D echo Paroxysmal atrial fibrillation, currently controlled. Maintained on oral anticoagulation. Continue to monitor Hypertension, monitor blood pressure Diabetes mellitus, followed and managed by primary care physician Questionable hyperlipidemia, evaluate lipid profile Generalized body ache, shoulder pain, back pain, arthritic pain. Advanced dementia. Clinical Quality Measures DVT/VTE Risk/Contraindication: Contraindications-Mechi: Other *list below* Other: ischemic legs JULIO WYLIE MD August 07, 2020 07:49
[2020-08-07 08:00] VITALS: BP 172/82
[2020-08-07 08:17] LABS: CHOLESTEROL 210 MG/DL (< 200); HDL CHOLESTEROL 47 MG/DL (40-60); TRIGLYCERIDES 75 MG/DL (<150); VLDL CHOLESTEROL 15 MG/DL (5-40)
[2020-08-07] MEDS: CLOPIDOGREL 75 MG (PLAVIX) TABLET PO SCH (09:05)
[2020-08-07] MEDS: SENNA W/DOCUSATE (SENOKOT S) TABLET PO SCH ×2 (09:05→20:49)
--- NOTE | 2020-08-07 09:50 | Diagnostic Imaging Report ---
PROCEDURE: US Bilateral lower extremity arterial. TECHNIQUE: Multiple real-time grayscale images are obtained through both lower extremity arterial systems with color Doppler imaging and color Doppler spectral analysis. INDICATION: Peripheral vascular disease The previous bilateral lower extremity arterial Doppler exam of 01/19/2019 noted little arterial blood flow in the right proximal superficial femoral artery to the remainder of the lower leg. There also appear to be a hemodynamically significant stenosis of the common femoral and proximal superficial femoral arteries on the left with diminished arterial blood flow to the left lower extremity. Reportedly, in the interval since the prior exam stents have been inserted into the arterial systems of both lower extremities. There is now arterial blood flow to both lower legs. However, there is an abrupt alteration of the velocities between the proximal mid superficial femoral artery on the right and I do suspect that there is a hemodynamically significant stenosis in this area. There is a similar abrupt alteration of the velocity between the proximal superficial femoral artery and midportion of the superficial on the left and there may well be a hemodynamically significant stenosis in this area as well. There is also a fairly steep decrease in the velocity between the mid and distal superficial femoral artery on the left and this does suggest a stenosis as well. Monophasic waveforms are seen in the popliteal and anterior tibial arteries bilaterally. The posterior tibial arteries could not be visualized. IMPRESSION: 1. In the interval since the prior exam, arterial stents have been inserted into both superficial femoral arteries. However, there does appear to be a recurrent stenosis of the midportion of each superficial femoral artery and of the distal superficial femoral artery on the left. This does result in diminished arterial blood flow to the lower legs. 2. If further imaging is desired, then CTA of the aorta with bilateral runoffs would be recommended. Dictated by: Dictated on workstation # [id number]
[2020-08-07] MEDS ORDERED: RIVA10TA PO (13:31)
[2020-08-07] MEDS ORDERED: GABA-486 PO (13:31)
[2020-08-07] MEDS ORDERED: INSU100V16 SC (13:31)
[2020-08-07] MEDS ORDERED: SERT-413 PO (13:31)
[2020-08-07] MEDS ORDERED: DILT-27 PO (13:31)
[2020-08-07] MEDS ORDERED: ACHD5005 PO (13:31)
[2020-08-07] MEDS ORDERED: LOSA25TA41 PO (13:31)
[2020-08-07] MEDS ORDERED: ATOR10TA66 PO (13:38)
[2020-08-07] MEDS ORDERED: ASCO500C17 PO (13:38)
[2020-08-07] MEDS ORDERED: LORA10TA7 PO (13:38)
[2020-08-07] MEDS ORDERED: C,E,1CAP PO (13:38)
[2020-08-07] MEDS ORDERED: FUROSEMIDE 40 MG (LASIX) TAB PO PRN (14:45)
[2020-08-07] MEDS: HYDROcodone/APAP 5 MG/325 MG (LORTAB) TAB PO PRN ×2 (15:31→21:22)
[2020-08-07] MEDS: ALPRAZolam 0.25 MG (XANAX) TAB PO PRN (20:49)
[2020-08-07 20:57] VITALS: BP 176/73
[2020-08-07] MEDS ORDERED: INSULIN GLARGINE HUM REC ANLOG 10 UNIT SC SCH (21:00)
[2020-08-07 23:32] VITALS: BP 230/114
[2020-08-07] MEDS ORDERED: NITRO DRIP 25000 MCG/D5W 250 ML IV ONE ×2 (23:46→23:48)
[2020-08-08] VITALS (42 sets, daily range): BP systolic 128–216; BP diastolic 64–113
[2020-08-08] MEDS: NITRO DRIP 25000 MCG/D5W 250 ML IV SCH (00:09)
[2020-08-08] MEDS: HEParin 1000 UNIT/ML (10ML VIAL) FOR BOLUS IV SCH (00:09)
[2020-08-08] MEDS: HEParin DRIP 25000 UNIT/500ML 500 ML IV SCH (02:26)
[2020-08-08] MEDS: fentaNYL INJ 100 MCG/2 ML AMP IVP PRN (02:44)
[2020-08-08 03:15] LABS: BASOPHILS # (AUTO) 0.1 10^3/uL (0.0-0.1); BASOPHILS % (AUTO) 1 % (0-10); EOSINOPHILS # (AUTO) 0.7 10^3/uL (0.0-0.3); EOSINOPHILS % (AUTO) 6 % (0-10); HEMATOCRIT 37 % (35-52); HEMOGLOBIN 11.5 g/dL (11.5-16.0); LYMPHOCYTES # (AUTO) 3.2 10^3/uL (1.0-4.0); LYMPHOCYTES % (AUTO) 29 % (12-44); MEAN CORPUSCULAR HEMOGLOBIN 28 pg (25-34); MEAN CORPUSCULAR HGB CONC 31 g/dL (32-36); MEAN CORPUSCULAR VOLUME 90 fL (80-99); MEAN PLATELET VOLUME 11.8 fL (9.0-12.2); MONOCYTES # (AUTO) 0.8 10^3/uL (0.0-1.0); MONOCYTES % (AUTO) 8 % (0-12); NEUTROPHILS # (AUTO) 6.3 10^3/uL (1.8-7.8); NEUTROPHILS % (AUTO) 57 % (42-75); PLATELET COUNT 229 10^3/uL (130-400); WHITE BLOOD COUNT 11.1 10^3/uL (4.3-11.0)
[2020-08-08 03:26] LABS: CHLORIDE 106 MMOL/L (98-107); POTASSIUM 3.9 MMOL/L (3.6-5.0); SODIUM 139 MMOL/L (135-145)
[2020-08-08 03:27] LABS: CALCIUM 8.8 MG/DL (8.5-10.1); GLUCOSE 109 MG/DL (70-105)
[2020-08-08 03:29] LABS: CARBON DIOXIDE 21 MMOL/L (21-32)
[2020-08-08 03:31] LABS: GFR ESTIMATED > 60
[2020-08-08 03:32] LABS: BUN/CREATININE RATIO 24
--- NOTE | 2020-08-08 05:33 | Pulmonary Consultation ---
History of Present Illness History of Present Illness Date Seen by Provider: August 08, 2020 Time Seen by Provider: 05:31 Date of Admission Reason for Visit: Critical limb ischemia Allergies and Home Medications Allergies Coded Allergies: hydromorphone (Verified Allergy, Severe, 01/18/19) MAKES HER " CRAZY" PER HER amoxicillin (Verified Allergy, Mild, 01/18/19) HUSBNAD STATES " SHE CANNOT SLEEP" morphine (Verified Allergy, Mild, 01/18/19) MAKES HER "CRAZY" PER HER Home Medications Ascorbic Acid 500 Mg Capsule, 500 MG PO DAILY, (Reported) Atorvastatin Calcium 10 Mg Tablet, 10 MG PO DAILY, (Reported) C,E,Zinc,Copper 11/Vrxyg8z/Lut 1 Each Capsule, 1 EACH PO DAILY, (Reported) Clopidogrel Bisulfate 75 Mg Tablet, 75 MG PO DAILY, (Reported) LAST FILLED 04-07-2020 #90 Diltiazem HCl 120 Mg Cap.er.24h, 120 MG PO DAILY, (Reported) Furosemide 40 Mg Tablet, 40 MG PO DAILY PRN for SWELLING, (Reported) Gabapentin 100 Mg Capsule, 200 MG PO DAILY, (Reported) TAKES 2 (100MG) CAPS LAST FILLED 05-28-2020 #90/45 DAY SUPPLY Hydrocodone/Acetaminophen 1 Each Tablet, 1 TAB PO TID PRN for PAIN-MODERATE (5- 7), (Reported) Insulin Aspart 100 Unit/1 Ml Susp, UNITS SC AC, (Reported) 0-199=0 UNITS 200-299=5 UNITS 300-399=6 UNITS 400-499=7 UNITS 500-599=8 UNITS Insulin Glargine,Hum.rec.anlog 100 Unit/1 Ml Vial, 10 UNITS SC BID, (Reported) Levothyroxine Sodium 112 Mcg Tablet, 112 MCG PO DAILY, (Reported) LAST FILLED 05-28-2020 #30/30 DAY SUPPLY Loratadine 10 Mg Tablet, 10 MG PO DAILY, (Reported) Losartan Potassium 25 Mg Tablet, 25 MG PO DAILY, (Reported) LAST FILLED 05-28-2020 #30/30 DAY SUPPLY Rivaroxaban 10 Mg Tablet, 5 MG PO BID, (Reported) TAKES OF A 10MG Sertraline HCl 50 Mg Tablet, 50 MG PO DAILY, (Reported) Past Zffjkuh-Ovkyiy-Hhhmut Hx Past Med/Social Hx: Reviewed Nursing Past Med/Soc Hx, Reviewed and Corrections made Patient Social History Alcohol Use: Denies Use Smoking Status: Never a Smoker Recent Hopitalizations: No Have you traveled recently?: No Immunizations Up To Date PED Vaccines UTD: No Date of Pneumonia Vaccine: Sep 10, 2016 Seasonal Allergies Seasonal Allergies: Yes Past Medical History Orthopedic, Vascular Surgery Respiratory: No Currently Using CPAP: No Currently Using BIPAP: No Cardiac: Yes Coronary Artery Disease, High Cholesterol, Hypertension, Peripheral Vascular Dementia, Neuropathy, Stroke, TIA Genitourinary: Yes Bladder Infection Gastrointestinal: No Musculoskeletal: Yes Foot Drop, Spasms Endocrine: Yes Diabetes, Insulin dep, Hypothyroidsim HEENT: Yes (LOSS OF PERIPHERAL VISION) Hearing Impairment: Hard of Hearing Cancer: No Psychosocial: Yes Depression Integumentary: No Blood Disorders: No Family Medical History Cardiovascular disease 19 FATHER Diabetes mellitus 19 FATHER Headache disorder 19 MOTHER Heart Disease, Diabetes, Migraines Review of Systems Time Seen by Provider: 05:33 Sepsis Event Evaluation Height, Weight, BMI Height: 5'2.00" Weight: 156lbs. 1.4oz. 70.400623rn; 30.00 BMI Method: Exam Exam Vital Signs Date Time Temp Pulse Resp B/P (MAP) Pulse Ox O2 Delivery O2 Flow Rate FiO2 08/08/20 04:54 193/87 08/08/20 04:00 91 28 129/85 (100) Room Air 08/08/20 03:47 97 Room Air 08/08/20 03:15 93 16 129/97 (108) 94 Room Air 08/08/20 02:00 83 22 155/102 (119) Room Air 08/08/20 01:15 89 149/85 (106) Room Air 08/08/20 01:00 87 08/08/20 00:29 97 Room Air 08/08/20 00:09 88 230/114 08/08/20 00:01 85 22 216/87 (130) Room Air 08/07/20 23:32 36.4 88 16 230/114 (152) 96 Room Air 08/07/20 21:00 97 Room Air 08/07/20 20:57 89 18 176/73 (107) 97 Room Air 08/07/20 20:00 36.1 08/07/20 19:00 88 08/07/20 17:00 87 10 92 Room Air 08/07/20 16:00 87 15 95 Room Air 08/07/20 12:47 87 08/07/20 12:00 36.2 08/07/20 09:00 96 Room Air 08/07/20 08:00 75 6 172/82 (112) 96 Room Air 08/07/20 08:00 35.8 08/07/20 06:54 75 I & O 08/08/20 07:00 Intake Total 1400 ml Output Total 600 ml Balance 800 ml Height & Weight Height: 5'2.00" Weight: 156lbs. 1.4oz. 70.166638rw; 30.00 BMI Method: General Appearance: No Apparent Distress, WD/WN, Chronically ill HEENT: PERRL/EOMI, Normal ENT Inspection, Pharynx Normal Neck: Full Range of Motion, Normal Inspection, Non Tender, Supple, Carotid Bruit Respiratory: Chest Non Tender, Lungs Clear, Normal Breath Sounds, No Accessory Muscle Use, No Respiratory Distress Cardiovascular: Regular Rate, Rhythm, No Edema, No Gallop, No JVD, Normal Peripheral Pulses, Systolic Murmur Extremity: Normal Capillary Refill, Normal Inspection, Normal Range of Motion, Non Tender, Calf Tenderness Neurologic/Psychiatric: Alert, Oriented x3, No Motor/Sensory Deficits, Normal Mood/Affect, Disoriented Skin: Normal Color, Warm/Dry Lymphatic: No Adenopathy Results Lab Laboratory Tests 08/06/20 20:10 08/07/20 01:16 08/08/20 03:03 Assessment/Plan Assessment/Plan Ischemic right leg with hx of multiple stents -Currently on Hep gtt -Dr. Menendez is following HTN urgency -Currently on Nitro gtt Dementia Severe aortic stenosis IDDM type 1 LON PATTERSON DO August 08, 2020 05:33
[2020-08-08] MEDS: MULTIVIT W/MINERALS TAB (THERAGRAN M) PO SCH (05:41)
[2020-08-08] MEDS: LEVOTHYROXINE 112 MCG (LEVOTHROID) TAB PO SCH (05:42)
[2020-08-08] MEDS: inSUlin ASPART (NovoLOG) 1 UNIT/0.01 ML (CHARGE PER UNIT) SC SCH ×4 (05:42→20:14)
[2020-08-08] MEDS: HYDROcodone/APAP 5 MG/325 MG (LORTAB) TAB PO PRN (05:42)
--- NOTE | 2020-08-08 05:56 | Progress Note ---
Subjective Date Seen by a Provider: August 08, 2020 Time Seen by a Provider: 09:00 Subjective/Events-last exam Patient is very confused No pain reported Angiogram today Labs stable Updated and daughter in-depth Patient very confused Review of Systems General: Fatigue Neurological: Weakness, Confusion Objective Exam Last Set of Vital Signs Vital Signs Date Time Temp Pulse Resp B/P (MAP) Pulse Ox O2 Delivery O2 Flow Rate FiO2 08/08/20 05:00 80 14 172/84 (113) Room Air 08/08/20 03:47 97 08/07/20 23:32 36.4 Capillary Refill : I&O Intake and Output 08/08/20 00:00 Intake Total 1400 ml Output Total 950 ml Balance 450 ml Intake Oral 1400 ml Output Urine Total 950 ml # Voids 5 # Bowel Movements 1 Results Lab Laboratory Tests 08/07/20 06:14: Glucometer 100 08/07/20 09:40: Activated Partial Thromboplast Time 176*H 08/07/20 11:21: Glucometer 262H 08/07/20 15:22: Glucometer 229H 08/07/20 17:35: Activated Partial Thromboplast Time 99H 08/07/20 20:46: Glucometer 168H 08/07/20 23:10: Activated Partial Thromboplast Time 46H 08/08/20 03:03: White Blood Count 11.1H, Red Blood Count 4.16, Hemoglobin 11.5, Hematocrit 37, Mean Corpuscular Volume 90, Mean Corpuscular Hemoglobin 28, Mean Corpuscular Hemoglobin Concent 31L, Red Cell Distribution Width 13.8, Platelet Count 229, Mean Platelet Volume 11.8, Immature Granulocyte % (Auto) 0, Neutrophils (%) (Auto) 57, Lymphocytes (%) (Auto) 29, Monocytes (%) (Auto) 8, Eosinophils (%) ( Auto) 6, Basophils (%) (Auto) 1, Neutrophils # (Auto) 6.3, Lymphocytes # (Auto) 3.2, Monocytes # (Auto) 0.8, Eosinophils # (Auto) 0.7H, Basophils # (Auto) 0.1, Immature Granulocyte # (Auto) 0.0, Sodium Level 139, Potassium Level 3.9, C hloride Level 106, Carbon Dioxide Level 21, Anion Gap 12, Blood Urea Nitrogen 19H, Creatinine 0.80, Estimat Glomerular Filtration Rate > 60, BUN/Creatinine Ratio 24, Glucose Level 109H, Calcium Level 8.8, Phosphorus Level 3.0, Magnesium Level 2.0 08/08/20 05:39: Glucometer 129H Assessment/Plan Assessment/Plan Assess & Plan/Chief Complaint Assessment: Ischemic right leg with h/o multiple PVD interventions Dementia Severe aortic stenosis DM Type 1 HTN HLP CAD CVA hx Plan: Home meds Appreciate Dr Gemma BENAVIDES Hep gtts 08/08/20: Angiogram today Hep gtts Updated and daughter re and angiogram plan May need swing bed at [facility] [place] Diagnosis/Problems Diagnosis/Problems (1) Ischemic leg pain (2) RECREATIONAL ASSISTANT (ventriculoperitoneal) shunt status (3) Autonomic dysfunction with type 2 diabetes mellitus (4) Presbycusis of both ears (5) Memory deficit (6) CVA (cerebral vascular accident) (7) Hypertension (8) PVD (peripheral vascular disease) Status: Chronic (9) Hypothyroidism (10) Anxiety (11) Depression Clinical Quality Measures DVT/VTE Risk/Contraindication: Contraindications-Mechi: Other *list below* Other: ischemic legs VERONICA GALVEZ DO August 08, 2020 05:56
[2020-08-08] MEDS: dilTIAZem120 MG (CARDIZEM CD) CAP PO SCH (08:10)
[2020-08-08] MEDS: LORATADINE (CLARITIN) 10 MG TAB PO SCH (08:10)
[2020-08-08] MEDS: GABAPENTIN 100 MG (NEURONTIN) CAP PO SCH (08:10)
[2020-08-08] MEDS: LOSARTAN 25 MG (COZAAR) TAB PO SCH (08:10)
[2020-08-08] MEDS: ASCORBIC ACID (VIT C) 500 MG TABLET PO SCH (08:10)
[2020-08-08] MEDS: CLOPIDOGREL 75 MG (PLAVIX) TABLET PO SCH (08:10)
[2020-08-08] MEDS: SERTRALINE 50 MG (ZOLOFT) TABLET PO SCH (08:10)
[2020-08-08] MEDS: SENNA W/DOCUSATE (SENOKOT S) TABLET PO SCH ×2 (08:11→20:07)
[2020-08-08] MEDS: NS IV 1000 ML 1,000 ML IV SCH ×3 (08:49→16:09)
[2020-08-08] MEDS ORDERED: CLOPIDOGREL 75 MG (PLAVIX) TABLET PO SCH (09:00)
[2020-08-08] MEDS ORDERED: NON-FORMULARY MEDICATION 1 EA EA (C,E,Zinc,Copper 11/Omega3s/Lut (Ocuvite Adult 50 Plus So PO SCH (09:00)
[2020-08-08] MEDS ORDERED: NON-FORMULARY MEDICATION 1 EA EA (Ascorbic Acid (Vitamin C) 500 MG) PO SCH (09:00)
--- NOTE | 2020-08-08 09:48 | Cardiology Progress Note ---
Subjective Date Seen by Provider: August 08, 2020 Time Seen by Provider: 09:45 Subjective/Events-last exam Patient was seen at bedside, laying down comfortably, complain of generalized body ache, lower extremities pain, arterial ultrasound was reviewed Review of Systems General: No Chills, No Night Sweats; Fatigue, Malaise; No Appetite, No Other HEENT: No Head Aches, No Visual Changes, No Eye Pain, No Ear Pain, No Dysphasia, No Sinus Congestion, No Post Nasal Drip, No Sore Throat, No Other Pulmonary: Dyspnea; No Cough, No Pleuritic Chest Pain, No Other Cardiovascular: No: Chest Pain, Palpitations, Orthopnea, Paroxysmal Noc. Dyspnea, Edema, Lt Headedness, Other Objective-Cardiology Exam Last Set of Vital Signs Vital Signs 08/08/20 09:00 Pulse 89 Resp 17 B/P (MAP) 128/75 (92) Pulse Ox 94 O2 Delivery Room Air Capillary Refill : I&O Intake and Output 08/08/20 00:00 Intake Total 1400 ml Output Total 950 ml Balance 450 ml Intake Oral 1400 ml Output Urine Total 950 ml # Voids 5 # Bowel Movements 1 General: Alert, Oriented X3, Cooperative HEENT: Atraumatic, PERRLA Neck: Supple, No JVD, No Thyromegaly Lungs: Clear to Auscultation, Normal Air Movement Heart: Regular Rate, Normal S1, Normal S2, No Murmurs Abdomen: Normal Bowel Sounds, Soft, No Tenderness, No Hepatosplenomegaly, No Masses Extremities: No Clubbing, No Cyanosis, No Edema, No Tenderness/Swelling, Other (Diminished pulse) Skin: No Rashes, No Breakdown, No Significant Lesion Neuro: Normal Gait, Normal Speech, Strength at 5/5 X4 Ext, Normal Tone, Sensation Intact Psych/Mental Status: Mental Status NL, Mood NL Results Lab Laboratory Tests 08/08/20 03:03 A/P-Cardiology Admission Diagnosis Critical limb ischemia Peripheral arterial disease Paroxysmal atrial fibrillation Hypertension Assessment/Plan Critical limb ischemia, had extensive history in the past, multiple inter ventions done by Dr. Aparicio in the past then had multiple stents in her lower extremities with Dr. Barraza. Started to have lower extremities pain, have generalized achiness. Diminished pulse, arterial ultrasound suggestive of severe in-stent restenosis, I am planning to proceed with angiogram possible angioplasty Congestive heart failure, chronic compensated left ventricular systolic dysfunction, ejection fraction 40 to 45%. Probably secondary to valvular heart disease. Continue to monitor Moderate to severe aortic valve stenosis, gradient was suggestive of moderate stenosis, the valve area suggestive of severe stenosis, I believe it underestimated the valve area. Patient has limited exercise ability, having generalized weakness, will continue monitoring and will consider repeating echo and reevaluate for the need for valve replacement surgery versus TAVR Paroxysmal atrial fibrillation, currently controlled. Maintained on oral anticoagulation. Continue to monitor Hypertension, monitor blood pressure Diabetes mellitus, followed and managed by primary care physician Hyperlipidemia, LDL 163, will initiate statin, I am concerned about the use of statin due to to the generalized body ache. Generalized body ache, shoulder pain, back pain, arthritic pain. Advanced dementia. Clinical Quality Measures DVT/VTE Risk/Contraindication: Contraindications-Mechi: Other *list below* Other: ischemic legs JULIO WYLIE MD August 08, 2020 09:48
[2020-08-08] MEDS ORDERED: HEParin (CATH LAB) 2,000 ML IV ONE (10:48)
[2020-08-08] MEDS ORDERED: LIDOCAINE 1% INJ 20 ML 20 ML VIAL ONE ×2 (10:48→14:27)
[2020-08-08] MEDS ORDERED: MIDAZOLAM 5 MG/5 ML (VERSED) VIAL ONE (13:37)
[2020-08-08] MEDS ORDERED: fentaNYL INJ 100 MCG/2 ML AMP ONE (13:37)
[2020-08-08] MEDS ORDERED: HEParin 1000 UNIT/ML (10ML VIAL) FOR BOLUS ONE (14:37)
[2020-08-08] MEDS ORDERED: NITRO DRIP 25000 MCG/D5W 250 ML IV ONE (14:47)
[2020-08-08] MEDS ORDERED: PATIENT MAY USE OWN MEDS, ALL PO SCH (15:15)
--- NOTE | 2020-08-08 15:24 | Peripheral Report ---
Peripheral Report Physician (s)/Home Demonstrator (s) Physician JULIO WYLIE MD Pre-Procedure Diagnosis Pre-Procedure Diagnosis: Critical limb ischemia Post-Procedure Note Procedure Start Date: August 08, 2020 Name of Procedure: Bilateral lower extremity runoff Third order Additional imaging Angioplasty to the left popliteal artery and left SFA Findings/Procedure Note PROCEDURE NOTE: 74-year-old lady with history of dementia, admitted with lower extremities pain, diminished pedal pulses, had an abnormal ultrasound, scheduled for peripheral angiogram possible angioplasty After explaining the procedure to the patient, all pros and cons were explained, all questions were answered. The patient signed the consent and then she was placed on the cardiac catheterization laboratory. The patient was placed on the cardiac catheterization laboratory. Groin was prepped SL fashion local anesthesia was used. Sheath placed in the right femoral artery, right lower extremity runoff was done through the sheath, additional DSA imaging was done to evaluate the trifurcation Using a rim catheter I was able to cross over and advanced a straight catheter to the left SFA runoff to the left leg was done then DSA to the trifurcation was done. Patient was given 3000 additional heparin, sheath was exchanged into a long 6 Burkinan sheath. Storq wire was advanced and parked distally then balloon angioplasty using Olin 5x100 with inflation to the popliteal and distal SFA and 5x120 with inflation in the proximal SFA, angiogram showed significant improvement, repeat DSA angiogram at the level of the foot showed single-vessel runoff. The sheath was pulled back to the common iliac artery on the left and runoff to the left iliac artery was done then pulled to the right common iliac artery and runoff to the right common iliac and common femoral artery was done. At the end of the procedure sheath was exchanged back to short 6 Burkinan sheath then it was removed and closure device deployed FINDINGS: Right lower extremity, multiple stents, patent stent down to the popliteal artery, severe stenosis of the distal popliteal artery and tibioperoneal trunk, single-vessel runoff anterior tibial in the right leg. Occluded posterior tibial and peroneal Left lower extremity, multiple stent in the SFA and popliteal with severe in- stent restenosis successful balloon angioplasty using 5 x 100 Olin balloon with excellent results, below the trifurcation there is severe stenosis just above the anterior tibial artery then single-vessel runoff involving the anterior tibial artery down to the foot otherwise occlusion of the posterior tibial and peroneal artery. Bilateral iliac arteries had a stent that appeared to be patent. CONCLUSIONS: 1. Severe stenosis within the stent in the left SFA and left popliteal artery successful balloon angioplasty with good results. 2. Severe stenosis at the left tibioperoneal trunk, single-vessel runoff down to the foot on the left leg. Small arteries. 3. Patent stent on the right SFA and popliteal artery with severe stenosis at the tibioperoneal trunk and single-vessel runoff slow flow on the right leg. 4. Patent iliac stents DISCUSSION AND RECOMMENDATIONS: Patient has small vessel disease, balloon angioplasty for in-stent restenosis was done. I recommend conservative management with medical therapy due to small vessel disease. The restenosis rate is high. If patient develops nonhealing ulcer will consider high risk intervention versus fem-tib bypass surgery Anesthesia Type: Conscious Sedation Estimated blood loss (mL): 25 ml Contrast Amount: 50 ml Total Radiation Dose: 90 mGy Post-Procedure Diagnosis Post-operative diagnosis: Critical limb ischemia Peripheral arterial disease Hypertension Hyperlipidemia JULIO WYLIE MD August 08, 2020 3:24 pm
[2020-08-08] MEDS ORDERED: RIVAROXABAN 20 MG TABLET (XARELTO) PO SCH (17:00)
[2020-08-09] VITALS (13 sets, daily range): BP systolic 101–179; BP diastolic 52–81
[2020-08-09] MEDS: ALPRAZolam 0.25 MG (XANAX) TAB PO PRN ×2 (00:10→20:39)
[2020-08-09] MEDS: NITRO DRIP 25000 MCG/D5W 250 ML IV SCH (00:10)
[2020-08-09] MEDS: NS IV 1000 ML 1,000 ML IV SCH ×2 (03:00→17:33)
[2020-08-09 03:33] LABS: BASOPHILS # (AUTO) 0.1 10^3/uL (0.0-0.1); BASOPHILS % (AUTO) 1 % (0-10); EOSINOPHILS # (AUTO) 0.2 10^3/uL (0.0-0.3); EOSINOPHILS % (AUTO) 2 % (0-10); HEMATOCRIT 34 % (35-52); HEMOGLOBIN 10.7 g/dL (11.5-16.0); LYMPHOCYTES # (AUTO) 1.6 10^3/uL (1.0-4.0); LYMPHOCYTES % (AUTO) 16 % (12-44); MEAN CORPUSCULAR HEMOGLOBIN 28 pg (25-34); MEAN CORPUSCULAR HGB CONC 32 g/dL (32-36); MEAN CORPUSCULAR VOLUME 87 fL (80-99); MEAN PLATELET VOLUME 11.9 fL (9.0-12.2); MONOCYTES % (AUTO) 10 % (0-12); NEUTROPHILS # (AUTO) 7.5 10^3/uL (1.8-7.8); NEUTROPHILS % (AUTO) 72 % (42-75); PLATELET COUNT 209 10^3/uL (130-400); WHITE BLOOD COUNT 10.4 10^3/uL (4.3-11.0)
[2020-08-09 03:52] LABS: ALANINE AMINOTRANSFERASE 13 U/L (0-55); ALBUMIN 3.1 GM/DL (3.2-4.5); ALKALINE PHOSPHATASE 118 U/L (40-136); BILIRUBIN,TOTAL 0.4 MG/DL (0.1-1.0); BUN/CREATININE RATIO 13; CALCIUM 8.7 MG/DL (8.5-10.1); CARBON DIOXIDE 23 MMOL/L (21-32); CHLORIDE 104 MMOL/L (98-107); CREATININE SERUM 0.78 MG/DL (0.60-1.30); GFR ESTIMATED > 60; GLUCOSE 176 MG/DL (70-105); POTASSIUM 3.9 MMOL/L (3.6-5.0); SODIUM 135 MMOL/L (135-145)
--- NOTE | 2020-08-09 04:25 | Pulmonary Progress Note ---
IAM MATHEWS MED STUDENT 08/09/20 0425: Subjective Date Seen by a Provider: August 09, 2020 Time Seen by a Provider: 04:23 Subjective/Events-last exam Patient sleeping upon entering. Arouses to verbal stimulation but falls back asleep quickly. No complaints. Review of Systems General: No Chills, No Night Sweats HEENT: No Head Aches, No Visual Changes Pulmonary: No Dyspnea, No Cough Cardiovascular: No: Chest Pain, Palpitations Gastrointestinal: No: Nausea, Vomiting Genitourinary: No Dysuria, No Frequency Musculoskeletal: No: neck pain, back pain Neurological: No: Weakness, Numbness Sepsis Event Evaluation Height, Weight, BMI Height: 5'2.00" Weight: 156lbs. 1.4oz. 70.276628fx; 30.00 BMI Method: Exam Exam Vital Signs Date Time Temp Pulse Resp B/P (MAP) Pulse Ox O2 Delivery O2 Flow Rate FiO2 08/09/20 04:00 87 15 145/81 (102) 94 Nasal Cannula 2.00 08/09/20 03:00 98 17 144/73 (96) 94 Nasal Cannula 2.00 08/09/20 02:00 93 13 137/70 (92) 91 Nasal Cannula 2.00 08/09/20 01:00 94 08/09/20 01:00 98 20 142/69 (93) 95 Nasal Cannula 2.00 08/09/20 00:00 101 19 101/65 (77) 97 Nasal Cannula 2.00 08/08/20 23:00 94 15 168/79 (108) 99 Nasal Cannula 2.00 08/08/20 23:00 97 Nasal Cannula 2.00 08/08/20 22:00 97 13 139/72 (94) 99 Nasal Cannula 2.00 08/08/20 21:45 94 12 172/113 (132) 96 Nasal Cannula 2.00 08/08/20 21:30 95 18 168/77 (107) 98 Nasal Cannula 2.00 08/08/20 21:15 91 21 170/77 (108) 98 Nasal Cannula 2.00 08/08/20 21:00 95 12 174/91 (118) 99 Nasal Cannula 2.00 08/08/20 20:45 86 16 171/86 (114) 96 Nasal Cannula 2.00 08/08/20 20:30 88 9 136/78 (97) 94 Nasal Cannula 2.00 08/08/20 20:15 92 12 168/85 (112) 91 Nasal Cannula 2.00 08/08/20 20:00 90 Room Air 08/08/20 20:00 86 10 160/101 (120) 94 Nasal Cannula 2.00 08/08/20 19:45 89 16 141/80 (100) 90 Nasal Cannula 2.00 08/08/20 19:30 89 13 164/72 (102) 91 Nasal Cannula 2.00 08/08/20 19:15 87 17 172/83 (112) 95 Nasal Cannula 2.00 08/08/20 19:00 86 8 166/95 (118) 94 Nasal Cannula 2.00 08/08/20 19:00 90 08/08/20 18:45 86 10 169/83 (111) 94 Nasal Cannula 2.00 08/08/20 18:30 87 15 159/71 (100) 92 Nasal Cannula 2.00 08/08/20 18:21 87 180/84 08/08/20 18:15 84 14 180/84 (116) 90 Nasal Cannula 2.00 08/08/20 18:00 85 8 133/112 (119) 92 Nasal Cannula 2.00 08/08/20 17:45 82 15 160/88 (112) 92 Nasal Cannula 2.00 08/08/20 17:30 85 11 157/87 (110) 92 Nasal Cannula 2.00 08/08/20 17:15 81 17 172/64 (100) 97 Nasal Cannula 2.00 08/08/20 17:00 82 17 167/91 (116) 94 Nasal Cannula 2.00 08/08/20 16:45 88 21 168/75 (106) 96 Nasal Cannula 2.00 08/08/20 16:30 87 14 161/70 (100) 94 Nasal Cannula 2.00 08/08/20 16:15 80 17 160/74 (102) 94 Nasal Cannula 2.00 08/08/20 16:00 80 17 152/76 (101) 95 Nasal Cannula 2.00 08/08/20 16:00 78 15 152/76 (101) 95 Nasal Cannula 2.00 08/08/20 15:53 76 183/85 08/08/20 15:49 36.0 08/08/20 15:45 77 14 183/85 (117) 96 Nasal Cannula 2.00 08/08/20 15:44 Nasal Cannula 2.00 08/08/20 15:42 90 Room Air 08/08/20 15:30 78 12 162/74 (103) 90 Room Air 08/08/20 14:00 105 97 Room Air 08/08/20 13:00 98 142/73 (96) 97 Room Air 08/08/20 12:47 96 08/08/20 12:39 Room Air 08/08/20 12:38 166/75 08/08/20 12:00 86 15 158/70 (99) 96 Room Air 08/08/20 11:46 36.0 08/08/20 11:00 96 19 152/79 (103) 96 Room Air 08/08/20 10:00 91 17 154/72 (99) Room Air 08/08/20 09:00 89 17 128/75 (92) 94 Room Air 08/08/20 08:13 36.2 08/08/20 08:13 104 137/96 08/08/20 08:00 90 14 137/96 (110) Room Air 08/08/20 07:39 Room Air 08/08/20 07:00 83 12 169/86 (113) Room Air 08/08/20 06:33 90 08/08/20 06:30 91 28 176/83 (114) Room Air 08/08/20 05:00 80 14 172/84 (113) Room Air 08/08/20 04:54 193/87 I & O 08/09/20 07:00 Intake Total 1150 ml Output Total 650 ml Balance 500 ml Height & Weight Height: 5'2.00" Weight: 156lbs. 1.4oz. 70.570282ha; 30.00 BMI Method: General Appearance: No Apparent Distress, WD/WN, Chronically ill HEENT: PERRL/EOMI Neck: Full Range of Motion, Normal Inspection, Non Tender Respiratory: Chest Non Tender, Lungs Clear, Normal Breath Sounds, No Accessory Muscle Use Cardiovascular: Regular Rate, Rhythm, No Edema, Normal Peripheral Pulses, Systolic Murmur Capillary Refill: Less Than 3 Seconds Peripheral Pulses: 2+ Radial Pulses (R), 2+ Radial Pulses (L) Gastrointestinal: normal bowel sounds, non tender Extremity: Normal Capillary Refill, Normal Range of Motion, Non Tender Neurologic/Psychiatric: Alert, Normal Mood/Affect, Disoriented Skin: Normal Color, Warm/Dry Lymphatic: No Adenopathy Results Lab Laboratory Tests 08/08/20 03:03 08/09/20 03:00 Assessment/Plan Assessment/Plan Critical limb ischemia -s/p peripheral angiogram with balloon angioplasty yesterday -Dr. Menendez following Peripheral arterial disease with history of multiple stents -Dr. Menendez following -Xarelto and plavix Hypertensive urgency -Nitro gtt -Home meds restarted Paroxysmal atrial fibrillation -Continue anticoagulation Aortic stenosis -monitor Hyperlipidemia -monitor Dementia IDDM type 1 -SSI protocol novolog -levemir BID Hypothyroidism -levothyroxine History of CVA LON PATTERSON DO 08/09/20 0540: Assessment/Plan Assessment/Plan Critical limb ischemia -s/p peripheral angiogram with balloon angioplasty yesterday -Dr. Menendez following Peripheral arterial disease with history of multiple stents -Dr. Menendez following -Xarelto and plavix Hypertensive urgency -Nitro gtt -Home meds restarted Paroxysmal atrial fibrillation -Continue anticoagulation Aortic stenosis -monitor Hyperlipidemia -monitor Dementia IDDM type 1 -SSI protocol novolog -levemir BID Hypothyroidism -levothyroxine History of CVA IAM MATHEWS MED STUDENT August 09, 2020 04:25 LON PATTERSON DO August 09, 2020 05:40
[2020-08-09] MEDS: LEVOTHYROXINE 112 MCG (LEVOTHROID) TAB PO SCH (06:29)
[2020-08-09] MEDS: MULTIVIT W/MINERALS TAB (THERAGRAN M) PO SCH (06:29)
[2020-08-09] MEDS: inSUlin ASPART (NovoLOG) 1 UNIT/0.01 ML (CHARGE PER UNIT) SC SCH ×4 (06:30→20:46)
--- NOTE | 2020-08-09 07:53 | Diagnostic Imaging Report ---
INDICATION: Leg ischemia, hypertension Compared with study 01/28/2010. FINDINGS: No focal consolidation, failure, effusion or pneumothorax. IMPRESSION: No acute appearing abnormality. Dictated by: Dictated on workstation # [id number]
[2020-08-09] MEDS: SENNA W/DOCUSATE (SENOKOT S) TABLET PO SCH ×2 (07:54→20:35)
--- NOTE | 2020-08-09 07:56 | Cardiology Progress Note ---
Subjective Date Seen by Provider: August 09, 2020 Time Seen by Provider: 07:54 Subjective/Events-last exam Patient is laying down in bed, complain of generalized weakness. No chest pain Review of Systems General: No Chills, No Night Sweats, No Fatigue, No Malaise, No Appetite, No Other HEENT: No Head Aches, No Visual Changes, No Eye Pain, No Ear Pain, No Dysphasia, No Sinus Congestion, No Post Nasal Drip, No Sore Throat, No Other Pulmonary: No Dyspnea, No Cough, No Pleuritic Chest Pain, No Other Cardiovascular: No: Chest Pain, Palpitations, Orthopnea, Paroxysmal Noc. Dyspnea, Edema, Lt Headedness, Other Objective-Cardiology Exam Last Set of Vital Signs Vital Signs 08/09/20 08/09/20 06:00 07:33 Temp 36.0 Pulse 89 Resp 25 B/P (MAP) 130/68 (88) Pulse Ox 93 O2 Delivery Nasal Cannula O2 Flow Rate 2.00 Capillary Refill : Less Than 3 Seconds I&O Intake and Output 08/09/20 00:00 Intake Total 1200 ml Output Total 1125 ml Balance 75 ml Intake Oral 200 ml IV Total 1000 ml Output Urine Total 1125 ml # Voids 5 General: Alert, Oriented X3, Cooperative HEENT: Atraumatic, PERRLA Neck: Supple, No JVD, No Thyromegaly Lungs: Clear to Auscultation, Normal Air Movement Heart: Regular Rate, Normal S1, Normal S2, No Murmurs Abdomen: Normal Bowel Sounds, Soft, No Tenderness, No Hepatosplenomegaly, No Masses Extremities: No Clubbing, No Cyanosis, No Edema, No Tenderness/Swelling, Other (Diminished pulse) Skin: No Rashes, No Breakdown, No Significant Lesion Neuro: Normal Gait, Normal Speech, Strength at 5/5 X4 Ext, Normal Tone, Sensation Intact Psych/Mental Status: Mental Status NL, Mood NL Results Lab Laboratory Tests 08/09/20 03:00 A/P-Cardiology Admission Diagnosis Critical limb ischemia Peripheral arterial disease Paroxysmal atrial fibrillation Hypertension Assessment/Plan Critical limb ischemia, had extensive history in the past, multiple interventions done by Dr. Aparicio in the past then had multiple stents in her lower extremities with Dr. Barraza. Bilateral lower extremity angiogram was done with angioplasty for in-stent restenosis in the left SFA, single-vessel runoff below the knee. Small vessel disease. Still having palpable pulse, discussed in length the management plan with her and her , she does not have any nonhealing wound, her exercise ability is limited, it will not be helpful to do intervention on her small vessel disease at this time due to the significant restenosis rate. Conservative management is recommended. 1. Severe stenosis within the stent in the left SFA and left popliteal artery successful balloon angioplasty with good results. 2. Severe stenosis at the left tibioperoneal trunk, single-vessel runoff down to the foot on the left leg. Small arteries. 3. Patent stent on the right SFA and popliteal artery with severe stenosis at the tibioperoneal trunk and single-vessel runoff slow flow on the right leg. 4. Patent iliac stents Congestive heart failure, chronic compensated left ventricular systolic dysfunction, ejection fraction 40 to 45%. Probably secondary to valvular heart disease. Continue to monitor Moderate to severe aortic valve stenosis, gradient was suggestive of moderate stenosis, the valve area suggestive of severe stenosis, I believe it underestimated the valve area. Patient has limited exercise ability, having gen eralized weakness, will continue monitoring and will consider repeating echo and reevaluate for the need for valve replacement surgery versus TAVR Paroxysmal atrial fibrillation, currently controlled. Maintained on oral anticoagulation. Continue to monitor Hypertension, monitor blood pressure Diabetes mellitus, followed and managed by primary care physician Hyperlipidemia, LDL 163, will initiate statin, I am concerned about the use of statin due to to the generalized body ache. Generalized body ache, shoulder pain, back pain, arthritic pain. Advanced dementia. Clinical Quality Measures DVT/VTE Risk/Contraindication: Contraindications-Mechi: Other *list below* Other: ischemic legs JULIO WYLIE MD August 09, 2020 07:56
[2020-08-09] MEDS: RIVAROXABAN 10 MG TABLET (XARELTO) PO SCH ×2 (08:24→20:35)
[2020-08-09] MEDS: LORATADINE (CLARITIN) 10 MG TAB PO SCH (08:24)
[2020-08-09] MEDS: CLOPIDOGREL 75 MG (PLAVIX) TABLET PO SCH (08:24)
[2020-08-09] MEDS: SERTRALINE 50 MG (ZOLOFT) TABLET PO SCH (08:24)
[2020-08-09] MEDS: ISOSORBIDE MONONITRATE 30 MG (IMDUR) TAB PO SCH (08:24)
[2020-08-09] MEDS: GABAPENTIN 100 MG (NEURONTIN) CAP PO SCH (08:24)
[2020-08-09] MEDS: dilTIAZem120 MG (CARDIZEM CD) CAP PO SCH (08:24)
[2020-08-09] MEDS: ASCORBIC ACID (VIT C) 500 MG TABLET PO SCH (08:24)
[2020-08-09] MEDS: LOSARTAN 25 MG (COZAAR) TAB PO SCH (08:24)
[2020-08-09] MEDS: ACETAMINOPHEN 325 MG TABLET PO PRN ×2 (08:26→18:38)
--- NOTE | 2020-08-09 10:48 | Physical Therapy Evaluation ---
PT Evaluation-General Medical Diagnosis Admission Date August 06, 2020 at 18:42 Medical Diagnosis: right LE ischemia Onset Date: August 06, 2020 Therapy Diagnosis Therapy Diagnosis: debility/weakness Height/Weight Height (Feet): 5 Height (Inches): 2.00 Weight (Pounds): 156 Weight (Ounces): 1.4 Precautions Precautions/Isolations: Fall Prevention, Standard Precautions Referral Physician: Syd Reason for Referral: Evaluation/Treatment Medical History Pertinent Medical History: CAD, CVA, DM, Dementia, Neuropathy, PVD Current History Direct admit secondary to bilateral LE pain Reviewed History: Yes Social History Home: Single Level Current Living Status: Spouse Prior Prior Level of Function SCALE: Activities may be completed with or without assistive devices. 8-Bfennblxav-kjmaluy completes the activity by him/herself with no assistance from a helper. 5-Set-up or Clean-up Assistance-helper sets up or cleans up; patient completes activity. Palmer assists only prior to or following the activity. 4-Supervision or Touching Assistance-helper provides verbal cues and/or touching/steadying and/or contact guard assistance as patient completes activity. Assistance may be provided throughout the activity or intermittently. 3-Partial/Moderate Assistance-helper does LESS THAN HALF the effort. Palmer lifts, holds or supports trunk or limbs, but provides less than half the effort. 2-Substantial/Maximal Assistance-helper does MORE THAN HALF the effort. Palmer lifts or holds trunk or limbs and provides more than half the effort. 6-Ghtvstaap-xepuuu does ALL the effort. Patient does none of the effort to complete the activity. Or, the assistance of 2 or more helpers is required for the patient to complete the activity. If activity was not attempted, code reason: 7-Patient Refused. 9-Not Applicable-not attempted and the patient did not perform the activity before the current illness, exacerbation or injury. 10-Not Attempted due to Environmental Limitations-(lack of equipment, weather restraints, etc.). 88-Not Attempted due to Medical Conditions or Safety Concerns. Bed Mobility: 2 Transfers (B,C,W/C): 2 Gait: 2 Indoor Mobility (Ambulation): Needed Some Help Stairs: Not Applicalbe PT Evaluation-Current Subjective Patient agrees to PT. Objective Patient Orientation: Confused Attachments: Arredondo Catheter, IV ROM/Strength ROM Lower Extremities bilateral LE WFL Strength Lower Extremities 3/5 grossly bilateral LE Integumentary/Posture Integumentary refer to nursing notes Bladder Incontinence: Arredondo Cath Posture trunk flexed posture Neuromuscular (Tone, Coordination, Reflexes) diminished coordination all extremities Sensory Vision: Functional Hearing: Impaired Sensation Right Lower Extremit: Impaired Sensation Left Lower Extremity: Impaired Transfers Roll Left to Right (QC): 2 Lying to Sitting/Side of Bed(Q: 2 Sit to Stand (QC): 2 Chair/Zuz-vn-Pvxfk Xfer(QC): 2 Gait Does the Patient Walk?: No and Walking Goal IS indicated Balance Sitting Static: Fair Sitting Dynamic: Fair Standing Static: Poor Standing Dynamic: Poor Treatment assisted patient with feeding for breakfast. 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 Nursing in to continue. Assessment/Needs 74 y.o. female,will benefit from skilled PT to address functional strength and mobility to improve current LOF. Patient lives with spouse who is primary caregiver. Rehab Potential: Fair PT Half-Way Goals Half-Way Goals PT Benefits Consultant Goals Time Frame: August 18, 2020 Roll Left & Right (QC): 3 Sit to Lying (QC): 3 Lying-Sitting on Side/Bed(QC): 3 Sit to Stand (QC): 3 Chair/Ccy-um-Hnyrj Xfer(QC): 3 Toilet Transfer (QC): 3 Walk 10 feet (QC): 3 PT Plan Problem List Problem List: Activity Tolerance, Functional Strength, Safety, Balance, Gait, Transfer, Bed Mobility Treatment/Plan Treatment Plan: Continue Plan of Care Treatment Plan: Bed Mobility, Education, Functional Activity Anjali, Functional Strength, Gait, Safety, Therapeutic Exercise, Transfers Treatment Duration: August 18, 2020 Frequency: 6 times per week Estimated Hrs Per Day: .25 hour per day Time/GCodes Time In: 905 Time Out: 921 Total Billed Treatment Time: 16 Total Billed Treatment 1 visit EVMod 16 min SONIA DAN PT August 09, 2020 10:48
--- NOTE | 2020-08-09 11:21 | Progress Note ---
Subjective Date Seen by a Provider: August 09, 2020 Time Seen by a Provider: 10:45 Subjective/Events-last exam Patient drowsy No meds given for agitation for awhile CT brain no acute issues PT OT ordered UTI dx Laboy still in place Low UOP required IVF Septic w/u negative Review of Systems General: Fatigue, Malaise Neurological: Confusion Objective Exam Last Set of Vital Signs Vital Signs Date Time Temp Pulse Resp B/P (MAP) Pulse Ox O2 Delivery O2 Flow Rate FiO2 08/09/20 09:08 36.3 08/09/20 08:17 Room Air 08/09/20 08:00 98 15 145/70 (95) 90 2.00 Capillary Refill : Less Than 3 Seconds I&O Intake and Output 08/09/20 00:00 Intake Total 1200 ml Output Total 1125 ml Balance 75 ml Intake Oral 200 ml IV Total 1000 ml Output Urine Total 1125 ml # Voids 5 General: Alert Lungs: Clear to Auscultation Heart: Regular Rate, Other (murmur) Results Lab Laboratory Tests 08/08/20 12:04: Glucometer 276H 08/08/20 15:49: Glucometer 119H 08/08/20 20:09: Glucometer 137H 08/09/20 03:00: White Blood Count 10.4, Red Blood Count 3.84, Hemoglobin 10.7L, Hematocrit 34L, Mean Corpuscular Volume 87, Mean Corpuscular Hemoglobin 28, Mean Corpuscular Hemoglobin Concent 32, Red Cell Distribution Width 13.7, Platelet Count 209, Mean Platelet Volume 11.9, Immature Granulocyte % (Auto) 0, Neutrophils (%) (Auto) 72, Lymphocytes (%) (Auto) 16, Monocytes (%) (Auto) 10, Eosinophils (%) (Auto) 2, Basophils (%) (Auto) 1, Neutrophils # (Auto) 7.5, Lymphocytes # (Auto) 1.6, Monocytes # (Auto) 1.0, Eosinophils # (Auto) 0.2, Basophils # (Auto) 0.1, Immature Granulocyte # (Auto) 0.0, Sodium Level 135, Potassium Level 3.9, Chloride Level 104, Carbon Dioxide Level 23, Anion Gap 8, Blood Urea Nitrogen 10, Creatinine 0.78, Estimat Glomerular Filtration Rate > 60, BUN/Creatinine Ratio 13, Glucose Level 176H, Calcium Level 8.7, Corrected Calcium 9.4, Phosphorus Level 3.0, Magnesium Level 2.0, Total Bilirubin 0.4, Aspartate Amino Transf (AST/SGOT) 13, Alanine Aminotransferase (ALT/SGPT) 13, Alkaline Phospha tase 118, Total Protein 6.0L, Albumin 3.1L 08/09/20 06:30: Glucometer 152H 08/09/20 10:32: Glucometer 218H Assessment/Plan Assessment/Plan Assess & Plan/Chief Complaint Assessment: Ischemic right leg with h/o multiple PVD interventions Dementia Severe aortic stenosis DM Type 1 HTN HLP CAD CVA hx Acute UTI Acute urinary retention requiring laboy cath Plan: Home meds Appreciate Dr Gemma BENAVIDES Hep gtts 08/08/20: Angiogram today Hep gtts Updated and daughter re and angiogram plan [place] [facility] [place]: UTI treatment PT OT IVF Diagnosis/Problems Diagnosis/Problems (1) Ischemic leg pain (2) LAN/WAN ENGINEER (ventriculoperitoneal) shunt status (3) Autonomic dysfunction with type 2 diabetes mellitus (4) Presbycusis of both ears (5) Memory deficit (6) CVA (cerebral vascular accident) (7) Hypertension (8) PVD (peripheral vascular disease) Status: Chronic (9) Hypothyroidism (10) Anxiety (11) Depression Clinical Quality Measures DVT/VTE Risk/Contraindication: Contraindications-Mechi: Other *list below* Other: ischemic legs VERONICA GALVEZ DO August 09, 2020 11:21
[2020-08-09 14:00] LABS: BILIRUBIN,URINE NEGATIVE (NEGATIVE); CLARITY,URINE CLOUDY; COLOR,URINE YELLOW; GLUCOSE, URINE (UA) NEGATIVE (NEGATIVE); KETONES,URINE TRACE (NEGATIVE); LEUKOCYTE ESTERASE ,URINE 2+ (NEGATIVE); NITRITE,URINE NEGATIVE (NEGATIVE); PH,URINE 5.5 (5-9); PROTEIN,URINE TRACE (NEGATIVE)
--- NOTE | 2020-08-09 14:07 | Occupational Therapy Eval ---
OT Evaluation-General/PLF Medical Diagnosis Admission Date August 06, 2020 at 18:42 Medical Diagnosis: right LE ischemia Onset Date: August 06, 2020 Therapy Diagnosis Therapy Diagnosis: weakness, decreased ADL status Height/Weight Height (Feet): 5 Height (Inches): 2.00 Weight (Pounds): 156 Weight (Ounces): 1.4 Precautions Precautions/Isolations: Fall Prevention, Standard Precautions Referral Physician: Syd Referral Reason: Evaluation/Treatment Medical History Pertinent Medical History: CAD, CVA, DM, Dementia, Neuropathy, PVD Current History direct admit due to bilateral LE pain Social History Home: Single Level Current Living Status: Spouse ADL-Prior Level of Function SCALE: Activities may be completed with or without assistive devices. 2-Hfsbwktldq-eeljdcj completes the activity by him/herself with no assistance f rom a helper. 5-Set-up or Clean-up Assistance-helper sets up or cleans up; patient completes activity. [place] assists only prior to or following the activity. 4-Supervision or Touching Assistance-helper provides verbal cues and/or touching/steadying and/or contact guard assistance as patient completes activity. Assistance may be provided throughout the activity or intermittently. 3-Partial/Moderate Assistance-helper does LESS THAN HALF the effort. [place] lifts, holds or supports trunk or limbs, but provides less than half the effort. 2-Substantial/Maximal Assistance-helper does MORE THAN HALF the effort. [place] lifts or holds trunk or limbs and provides more than half the effort. 8-Pozsuxasx-rpcdeb does ALL the effort. Patient does none of the effort to complete the activity. Or, the assistance of 2 or more helpers is required for the patient to complete the activity. If activity was not attempted, code reason: 7-Patient Refused. 9-Not Applicable-not attempted and the patient did not perform the activity before the current illness, exacerbation or injury. 10-Not Attempted due to Environmental Limitations-(lack of equipment, weather restraints, etc.). 88-Not Attempted due to Medical Conditions or Safety Concerns. ADL PLOF Comments Pt indicates she required assistance wtih showering and completing footwear. IND with UE/LE dressing. Pt uses a walker at home. Self Care: Needed Some Help Functional Cognition: Needed Some Help DME/Equipment: Bath Chair, Shower OT Current Status Subjective Pt seated in recliner sleeping, awoken and agreeable to OT tx. Pt indicates she is unsure why she is so tired. present from middle of session to end of session. Mental Status/Objective Patient Orientation: Person, Place Attachments: Arredondo Catheter, IV, Telemetry Current Glasses/Contacts: Yes Upper Extremity ROM WFL, BUE shoulder flexion to approx 140 degrees, able to touch top of head with both hands. Upper Extremity Coordination slightly decreased. Upper Extremity Strength grossly 3/5 BUEs ADL-Treatment Eating (QC): 5 (set up assistance with lunch. Pt able to then eat finger food.) On/Off Footwear (QC): 1 (Based on clincial judgement, pt dependent with task.) Other Treatments Pt seated in recliner, OT educated pt on purpose and benefit of OT, she verbalized understanding. Pt provided information about PLOF and home set up to her ability, and then participated in UE screen. Pt agreeable to washing her face and combing her hair. Pt able to brush her hair after set up, but overall required moderate assistance due to tangles in back of her head. Pt washed her face with set up assistance. Pt's arrived, and dietary provided pt with lunch tray. OT assisted pt with opening jerry/mustard packets and placed on her sandwich, pt then able to order picker/assembler sandwich with her hand and take a bite. Post tx, pt seated upright in recliner, call light in reach and all needs met, present. Education OT Patient Education: Correct positioning, Modified ADL techniques, Progress toward Goal/Update tx plan, Purpose of tx/functional activities Teaching Recipient: Patient Teaching Methods: Discussion Response to Teaching: Verbalize Understanding OT Last Pattern Grader Goals Senior Living Goals Time Frame: August 22, 2020 Eating (QC): 5 Oral Hygiene (QC): 5 Toileting Hygiene (QC): 3 Shower/Bathe Self (QC): 3 Upper Body Dressing (QC): 4 Lower Body Dressing (QC): 4 Additional Goals: 1-Demonstrate ADL Tasks, 2-Verbalize Understanding, 3- ImproveStrength/Anjali 1=Demonstrate adherence to instructed precautions during ADL tasks. 2=Patient will verbalize/demonstrate understanding of assistive devices/modifications for ADL. 3=Patient will improve strength/tolerance for activity to enable patient to perform ADL's. OT Education/Plan Problem List/Assessment Assessment: Decreased Activ Tolerance, Decreased UE Strength, Impaired Funct Balance, Impaired I ADL's, Impaired Self-Care Skills Discharge Recommendations Plan/Recommendations: Continue POC Treatment Plan/Plan of Care Patient would benefit from OT for education, treatment and training to promote independence in ADL's, mobility, safety and/or upper extremity function for ADL's. Plan of Care: ADL Retraining, Functional Mobility, UE Funct Exercise/Act Treatment Duration: August 22, 2020 Frequency: 5 times per week Estimated Hrs Per Day: .25 hour per day Rehab Potential: Fair Time/GCodes Start Time: 13:20 Stop Time: 13:43 Total Time Billed (hr/min): 23 Billed Treatment Time 1, EVM (10'), ADL (13') LAWSON FLORES OT August 09, 2020 14:06
[2020-08-09 14:23] LABS: BACTERIA,URINE LARGE /HPF; WBC,URINE 50-100 /HPF
--- NOTE | 2020-08-09 15:06 | Diagnostic Imaging Report ---
PROCEDURE: CT head without contrast. TECHNIQUE: Multiple contiguous axial images were obtained through the brain without the use of intravenous contrast. Auto Exposure Controls were utilized during the CT exam to meet ALARA standards for radiation dose reduction. INDICATION: Lethargy. No prior studies are available for comparison. There is prominence of the ventricles and sulci consistent with cerebral atrophy. Patient does have bilateral DYE JIG OPERATOR shunts located within the frontal horns of the lateral ventricles. There is a large area of encephalomalacia of the left occipital lobe from prior infarct. Moderate periventricular hypodensity is noted consistent with chronic microvascular ischemia. No sulcal effacement or midline shift is identified. No acute intra-axial or extra-axial hemorrhage is detected. Cisterns are patent. Visualized paranasal sinuses are clear. IMPRESSION: Chronic changes, as described. No acute intracranial process is detected. Dictated by: Dictated on workstation # [id number]
[2020-08-09] MEDS ORDERED: NS (IVPB) 250 ML IV PRN (18:45)
[2020-08-09] MEDS ORDERED: NS IV 1000 ML 1,000 ML IV SCH (19:00)
[2020-08-09 20:03] LABS: BASOPHILS % (AUTO) 0 % (0-10); EOSINOPHILS # (AUTO) 0.4 10^3/uL (0.0-0.3); EOSINOPHILS % (AUTO) 5 % (0-10); HEMATOCRIT 34 % (35-52); HEMOGLOBIN 10.5 g/dL (11.5-16.0); LYMPHOCYTES # (AUTO) 1.8 10^3/uL (1.0-4.0); LYMPHOCYTES % (AUTO) 23 % (12-44); MEAN CORPUSCULAR HEMOGLOBIN 28 pg (25-34); MEAN CORPUSCULAR HGB CONC 31 g/dL (32-36); MEAN CORPUSCULAR VOLUME 88 fL (80-99); MEAN PLATELET VOLUME 11.7 fL (9.0-12.2); MONOCYTES # (AUTO) 0.7 10^3/uL (0.0-1.0); MONOCYTES % (AUTO) 9 % (0-12); NEUTROPHILS # (AUTO) 4.9 10^3/uL (1.8-7.8); NEUTROPHILS % (AUTO) 63 % (42-75); PLATELET COUNT 179 10^3/uL (130-400); WHITE BLOOD COUNT 7.9 10^3/uL (4.3-11.0)
[2020-08-09 20:23] LABS: ALBUMIN 3.1 GM/DL (3.2-4.5); BILIRUBIN,TOTAL 0.2 MG/DL (0.1-1.0); CALCIUM 8.3 MG/DL (8.5-10.1); CREATININE SERUM 1.09 MG/DL (0.60-1.30); POTASSIUM 4.4 MMOL/L (3.6-5.0); TOTAL PROTEIN 5.9 GM/DL (6.4-8.2)
[2020-08-09] MEDS ORDERED: CEFEPIME 1 GM/10 ML (MAXIPIME) VIAL ONE (23:33)
[2020-08-09] MEDS: CEFEPIME INJECTION 1,000 MG in WATER (STERILE) FOR INJECTION 10 ML IV SCH (23:49)
[2020-08-10 03:35] VITALS: BP 174/74
[2020-08-10] MEDS ORDERED: CEFEPIME 1 GM/10 ML (MAXIPIME) VIAL ONE (06:11)
[2020-08-10] MEDS: inSUlin ASPART (NovoLOG) 1 UNIT/0.01 ML (CHARGE PER UNIT) SC SCH (06:16)
[2020-08-10] MEDS: NS IV 1000 ML 1,000 ML IV SCH (06:17)
[2020-08-10] MEDS: LEVOTHYROXINE 112 MCG (LEVOTHROID) TAB PO SCH (06:23)
[2020-08-10] MEDS: CEFEPIME INJECTION 1,000 MG in WATER (STERILE) FOR INJECTION 10 ML IV SCH (06:23)
[2020-08-10] MEDS: MULTIVIT W/MINERALS TAB (THERAGRAN M) PO SCH (06:24)
[2020-08-10 06:55] LABS: BASOPHILS % (AUTO) 0 % (0-10); EOSINOPHILS # (AUTO) 0.1 10^3/uL (0.0-0.3); EOSINOPHILS % (AUTO) 1 % (0-10); HEMATOCRIT 35 % (35-52); HEMOGLOBIN 11.2 g/dL (11.5-16.0); LYMPHOCYTES # (AUTO) 1.4 10^3/uL (1.0-4.0); LYMPHOCYTES % (AUTO) 14 % (12-44); MEAN CORPUSCULAR HEMOGLOBIN 29 pg (25-34); MEAN CORPUSCULAR HGB CONC 32 g/dL (32-36); MEAN CORPUSCULAR VOLUME 89 fL (80-99); MEAN PLATELET VOLUME 11.6 fL (9.0-12.2); MONOCYTES # (AUTO) 0.9 10^3/uL (0.0-1.0); MONOCYTES % (AUTO) 9 % (0-12); NEUTROPHILS # (AUTO) 7.5 10^3/uL (1.8-7.8); NEUTROPHILS % (AUTO) 75 % (42-75); PLATELET COUNT 163 10^3/uL (130-400); WHITE BLOOD COUNT 9.9 10^3/uL (4.3-11.0)
[2020-08-10 07:06] LABS: CHLORIDE 108 MMOL/L (98-107); SODIUM 139 MMOL/L (135-145)
[2020-08-10 07:08] LABS: CALCIUM 8.4 MG/DL (8.5-10.1)
[2020-08-10 07:09] LABS: GLUCOSE 141 MG/DL (70-105); TOTAL PROTEIN 5.9 GM/DL (6.4-8.2)
[2020-08-10 07:10] LABS: CARBON DIOXIDE 23 MMOL/L (21-32)
[2020-08-10 07:11] LABS: BILIRUBIN,TOTAL 0.2 MG/DL (0.1-1.0)
[2020-08-10 07:12] LABS: ALKALINE PHOSPHATASE 99 U/L (40-136)
[2020-08-10 07:13] LABS: CREATININE SERUM 0.75 MG/DL (0.60-1.30); GFR ESTIMATED > 60
[2020-08-10 07:14] LABS: BUN/CREATININE RATIO 19
[2020-08-10 07:15] LABS: ALANINE AMINOTRANSFERASE 16 U/L (0-55)
[2020-08-10 08:00] VITALS: BP 193/81
[2020-08-10] MEDS: ASCORBIC ACID (VIT C) 500 MG TABLET PO SCH (08:10)
[2020-08-10] MEDS: LOSARTAN 25 MG (COZAAR) TAB PO SCH (08:10)
[2020-08-10] MEDS: RIVAROXABAN 10 MG TABLET (XARELTO) PO SCH (08:10)
[2020-08-10] MEDS: dilTIAZem120 MG (CARDIZEM CD) CAP PO SCH (08:10)
[2020-08-10] MEDS: GABAPENTIN 100 MG (NEURONTIN) CAP PO SCH (08:10)
[2020-08-10] MEDS: SENNA W/DOCUSATE (SENOKOT S) TABLET PO SCH ×2 (08:11→10:38)
[2020-08-10] MEDS: LORATADINE (CLARITIN) 10 MG TAB PO SCH (08:11)
[2020-08-10] MEDS: CLOPIDOGREL 75 MG (PLAVIX) TABLET PO SCH (08:11)
[2020-08-10] MEDS: SERTRALINE 50 MG (ZOLOFT) TABLET PO SCH (08:11)
[2020-08-10] MEDS: ISOSORBIDE MONONITRATE 30 MG (IMDUR) TAB PO SCH (08:17)
--- NOTE | 2020-08-10 08:55 | Cardiology Progress Note ---
Subjective Date Seen by Provider: August 10, 2020 Time Seen by Provider: 08:54 Subjective/Events-last exam Patient was seen at bedside, laying down comfortably, reported that she is feeling better today. Review of Systems General: No Chills, No Night Sweats, No Fatigue, No Malaise, No Appetite, No Other HEENT: No Head Aches, No Visual Changes, No Eye Pain, No Ear Pain, No Dysphasia, No Sinus Congestion, No Post Nasal Drip, No Sore Throat, No Other Pulmonary: No Dyspnea, No Cough, No Pleuritic Chest Pain, No Other Cardiovascular: No: Chest Pain, Palpitations, Orthopnea, Paroxysmal Noc. Dyspnea, Edema, Lt Headedness, Other Focused Exam Lactate Level 08/09/20 19:55: Lactic Acid Level 1.33 Objective-Cardiology Exam Last Set of Vital Signs Vital Signs 08/10/20 08:00 Temp 35.3 Pulse 87 Resp 16 B/P (MAP) 193/81 (118) Pulse Ox 93 O2 Delivery Room Air Capillary Refill : Less Than 3 Seconds I&O Intake and Output 08/10/20 00:00 Intake Total 1125 ml Output Total 1410 ml Balance -285 ml Intake Oral 1125 ml Output Urine Total 1410 ml General: Alert, Cooperative HEENT: Atraumatic, PERRLA Neck: Supple, No JVD, No Thyromegaly Lungs: Clear to Auscultation Heart: Regular Rate, Normal S1, Normal S2, Other (murmur) Abdomen: Normal Bowel Sounds, Soft, No Tenderness, No Hepatosplenomegaly, No Masses Extremities: No Clubbing, No Cyanosis, No Edema, No Tenderness/Swelling, Other (Diminished pulse) Skin: No Rashes, No Breakdown, No Significant Lesion Neuro: Normal Gait, Normal Speech, Strength at 5/5 X4 Ext, Normal Tone, Sensation Intact Psych/Mental Status: Mental Status NL, Mood NL Results Lab Laboratory Tests 08/09/20 19:55 08/10/20 06:48 A/P-Cardiology Admission Diagnosis Critical limb ischemia Peripheral arterial disease Paroxysmal atrial fibrillation Hypertension Assessment/Plan Or extremities pain, history of limb ischemia, had extensive history in the past, multiple interventions done by Dr. Aparicio in the past then had multiple stents in her lower extremities with Dr. Barraza. Bilateral lower extremity angiogram was done with angioplasty for in-stent restenosis in the left SFA, single-vessel runoff below the knee. Small vessel disease. Still having palpable pulse, discussed in length the management plan with her and her , she does not have any nonhealing wound, her exercise ability is limited, it will not be helpful to do intervention on her small vessel disease at this time due to the significant restenosis rate. Conservative management is recommended. 1. Severe stenosis within the stent in the left SFA and left popliteal artery successful balloon angioplasty with good results. 2. Severe stenosis at the left tibioperoneal trunk, single-vessel runoff down to the foot on the left leg. Small arteries. 3. Patent stent on the right SFA and popliteal artery with severe stenosis at the tibioperoneal trunk and single-vessel runoff slow flow on the right leg. 4. Patent iliac stents Congestive heart failure, chronic compensated left ventricular systolic dysfunction, ejection fraction 40 to 45%. Probably secondary to valvular heart disease. Continue to monitor Moderate to severe aortic valve stenosis, gradient was suggestive of moderate stenosis, the valve area suggestive of severe stenosis, I believe it underestimated the valve area. Patient has limited exercise ability, having generalized weakness, will continue monitoring and will consider repeating echo and reevaluate for the need for valve replacement surgery versus TAVR Paroxysmal atrial fibrillation, currently controlled. Maintained on oral anticoagulation. Continue to monitor Hypertension, monitor blood pressure Diabetes mellitus, followed and managed by primary care physician Hyperlipidemia, LDL 163, will initiate statin, I am concerned about the use of statin due to to the generalized body ache. Generalized body ache, shoulder pain, back pain, arthritic pain. Advanced dementia. Clinical Quality Measures DVT/VTE Risk/Contraindication: Contraindications-Mechi: Other *list below* Other: ischemic legs JULIO WYLIE MD August 10, 2020 08:55
[2020-08-10] MEDS ORDERED: OXC5T PO (10:25)
[2020-08-10] MEDS ORDERED: CEFE1VIA4 IV (10:25)
[2020-08-10] MEDS ORDERED: ISOS30TA82 PO (10:25)
[2020-08-10] MEDS ORDERED: ZIPR20VI IM (10:25)
[2020-08-10] MEDS ORDERED: Haloperidol Lactate IM (10:25)
[2020-08-10] MEDS ORDERED: ALPR.25T PO (10:25)
--- NOTE | 2020-08-10 10:26 | Discharge Inst-Skilled Nursing ---
Discharge Inst-Skilled NF Reconcile Patient Problems Problems Reviewed?: Yes Chief Complaint CC: Ischemic leg HPI: This is a 74yoWF clinic Pt of mine with a PMH of dementia and multiple p rocedures with stents and angioplasties of the lower extremities by Dr. Barraza who presented to my office with increasing right leg pain, she had gone to [place], CT scan and arterial ultrasound revealed no evidence of any blockage but last week when Dr. Barraza was unavailable but she worsened to the point of coming to my office, I made the decision with Dr. Menendez to start a Heparin drip for presumed ischemic limb, arterial ultrasound ordered and Dr. Menendez assessed her today, found to have a pulse in the right lower extremity but will certainly evaluate for any type of modifiable stenosis in a procedure tomorrow. We will restart all of her home medications after verifying with her . Currently she is doing well, did not require any anti-psychotics for any confusion last night. Patient Instructions Patient Problems: Ischemic legs DM Dementia Goal: Return home Consult/Follow Up/Orders Skilled NF Admit to: [facility] Certification (SNF) I certify that SNF services are required to be given on an inpatient basis because of the above named patient's need for detention care on a continuing basis for the conditions(s) for which he/she was receiving inpatient hospital services prior to his/her transfer to the SNF. Detention Facility Order: Nursing Services, Panel Monitor-Evaluate & Treat, Physical Therapy-Evaluate & Treat, Speech Language-Evaluate & Treat, Wound Care-Eval/Treat Oxygen Delivery Method: Room Air Discharge Diet: ADA Diet Daily Activity as Tolerated: Yes Resuscitation Status: Full Code New & Resume Previous Orders New Medications: ALPRAZolam (Xanax Tablet) 0.25 Mg Tab 0.25 MG PO Q8H PRN for ANXIETY for 7 Days, TAB Cefepime HCl (Cefepime HCl) 1 Gm Vial 1 GM IV Q6H for 4 Days, VIAL [Haloperidol Lactate] () 5 MG/ML INJ 2 MG IM Q4H PRN for AGITATION for 7 Days, VIAL Isosorbide Mononitrate (Isosorbide Mononitrate ER) 30 Mg Tab.er.24h 30 MG PO DAILY for 365 Days, TAB Oxycodone Hcl (Oxyir Tablet) 5 Mg Tab 5 MG PO Q4H PRN for PAIN-SEVERE (8-10) for 7 Days, TAB Ziprasidone Mesylate (Geodon) 20 Mg/1 Ml Vial 10 MG IM Q2H PRN for AGITATION for 7 Days, VIAL Continued Medications: Ascorbic Acid (Vitamin C) 500 Mg Capsule 500 MG PO DAILY, CAP Atorvastatin Calcium (Atorvastatin Calcium) 10 Mg Tablet 10 MG PO DAILY, TAB C,E,Zinc,Copper 11/Vxyaf3n/Lut (Ocuvite Adult 50 Plus Softgel) 1 Each Capsule 1 EACH PO DAILY, CAP Clopidogrel Bisulfate (Clopidogrel) 75 Mg Tablet 75 MG PO DAILY, TAB LAST FILLED 04-07-2020 #90 Diltiazem HCl (Diltiazem 24Hr ER) 120 Mg Cap.er.24h 120 MG PO DAILY, CAP Furosemide (Furosemide) 40 Mg Tablet 40 MG PO DAILY PRN for SWELLING, TAB Gabapentin (Gabapentin) 100 Mg Capsule 200 MG PO DAILY, CAP TAKES 2 (100MG) CAPS LAST FILLED 05-28-2020 #90/45 DAY SUPPLY Hydrocodone/Acetaminophen (Hydrocodone-Acetamin 5-325 mg) 1 Each Tablet 1 TAB PO TID PRN for PAIN-MODERATE (5-7), TAB Insulin Aspart (Novolog) 100 Unit/1 Ml Susp UNITS SC AC, UNITS 0-199=0 UNITS 200-299=5 UNITS 300-399=6 UNITS 400-499=7 UNITS 500-599=8 UNITS Insulin Glargine,Hum.rec.anlog (Lantus) 100 Unit/1 Ml Vial 10 UNITS SC BID, EA Levothyroxine Sodium (Levothyroxine Sodium) 112 Mcg Tablet 112 MCG PO DAILY, TAB LAST FILLED 05-28-2020 #30/30 DAY SUPPLY Loratadine (Loratadine) 10 Mg Tablet 10 MG PO DAILY, TAB Losartan Potassium (Losartan Potassium) 25 Mg Tablet 25 MG PO DAILY, TAB LAST FILLED 05-28-2020 #30/30 DAY SUPPLY Rivaroxaban (Xarelto) 10 Mg Tablet 5 MG PO BID, TAB TAKES OF A 10MG Sertraline HCl (Sertraline HCl) 50 Mg Tablet 50 MG PO DAILY, TAB Dulce Velarde August 10, 2020 10:26 DULCE VELARDE DO August 10, 2020 10:26
--- NOTE | 2020-08-10 10:27 | Discharge Summary ---
Diagnosis/Chief Complaint Date of Admission August 06, 2020 at 18:42 Date of Discharge Discharge Date: August 10, 2020 Discharge Diagnosis Assessment: Ischemic right leg with h/o multiple PVD interventions Dementia Severe aortic stenosis DM Type 1 HTN HLP CAD CVA hx Acute UTI Acute urinary retention requiring laboy cath Plan: Home meds Appreciate Dr Gemma BENAVIDES Hep gtts 08/08/20: Angiogram today Hep gtts Updated and daughter re and angiogram plan May need [place] [facility] [place] 08[place]09/20: UTI treatment PT OT IVF Discharge Summary Discharge Physical Examination Allergies: Coded Allergies: hydromorphone (Verified Allergy, Severe, 01/18/19) MAKES HER " CRAZY" PER HER amoxicillin (Verified Allergy, Mild, 01/18/19) HUSBNAD STATES " SHE CANNOT SLEEP" morphine (Verified Allergy, Mild, 01/18/19) MAKES HER "CRAZY" PER HER Vitals & I&Os Vital Signs Date Time Temp Pulse Resp B/P (MAP) Pulse Ox O2 Delivery O2 Flow Rate FiO2 08/10/20 12:25 08/10/20 12:00 35.8 90 16 95 Room Air 08/09/20 16:00 2.00 General Appearance: Alert, Cooperative Respiratory: Clear to Auscultation Cardiovascular: Regular Rate Neuro: Normal Speech Hospital Course Was the Problem List Reviewed?: Yes Lengthy hospital course after admitted from my clinic for ischemic leg acute on chronic requiring interevention by Dr Menendez when arterial USG revealed stenosis. Patient had delirium due to dementia and hospital meds. UTI dx after urinary retention so placed on Cefepime for Pseudomonas risk. Overall she did well but needed swing bed at [facility] [place] to going home on . Labs (last 24 hrs) Laboratory Tests 08/06/20 20:10: White Blood Count 8.2, Red Blood Count 4.23, Hemoglobin 11.8, Hematocrit 38, Mean Corpuscular Volume 89, Mean Corpuscular Hemoglobin 28, Mean Corpuscular Hemoglobin Concent 31L, Red Cell Distribution Width 13.9, Platelet Count 241, Mean Platelet Volume 11.7, Immature Granulocyte % (Auto) 0, Neutrophils (%) (Auto) 51, Lymphocytes (%) (Auto) 31, Monocytes (%) (Auto) 10, Eosinophils (%) (Auto) 7, Basophils (%) (Auto) 1, Neutrophils # (Auto) 4.2, Lymphocytes # (Auto) 2.6, Monocytes # (Auto) 0.8, Eosinophils # (Auto) 0.6H, Basophils # (Auto) 0.0, Immature Granulocyte # (Auto) 0.0, Prothrombin Time 17.0H, INR Comment 1.3, Activated Partial Thromboplast Time 35, Sodium Level 141, Potassium Level 4.1, Chloride Level 104, Carbon Dioxide Level 27, Anion Gap 10, Blood Urea Nitrogen 34H, Creatinine 1.08, Estimat Glomerular Filtration Rate 50, BUN/Creatinine Ratio 31, Glucose Level 128H, Calcium Level 9.0, Corrected Calcium 9.3, Total Bilirubin 0.2, Aspartate Amino Transf (AST/SGOT) 17, Alanine Aminotransferase (ALT/SGPT) 22, Alkaline Phosphatase 121, Total Protein 7.1, Albumin 3.6 08/07/20 01:16: White Blood Count 9.7, Red Blood Count 4.16, Hemoglobin 11.5, Hematocrit 37, Mean Corpuscular Volume 88, Mean Corpuscular Hemoglobin 28, Mean Corpuscular Hemoglobin Concent 31L, Red Cell Distribution Width 13.9, Platelet Count 227, Mean Platelet Volume 11.6, Immature Granulocyte % (Auto) 1, Neutrophils (%) (Auto) 41L, Lymphocytes (%) (Auto) 42, Monocytes (%) (Auto) 9, Eosinophils (%) (Auto) 7, Basophils (%) (Auto) 1, Neutrophils # (Auto) 4.0, Lymphocytes # (Auto) 4.1H, Monocytes # (Auto) 0.9, Eosinophils # (Auto) 0.7H, Basophils # (Auto) 0.1, Immature Granulocyte # (Auto) 0.1, Activated Partial Thromboplast Time > 200*H, Sodium Level 141, Potassium Level 4.3, Chloride Level 105, Carbon Dioxide Level 23, Anion Gap 13, Blood Urea Nitrogen 32H, Creatinine 0.87, Estimat Glomerular Filtration Rate > 60, BUN/Creatinine Ratio 37, Glucose Level 119H, Calcium Level 8.8, Corrected Calcium 9.3, Total Bilirubin 0.2, Aspartate Amino Transf (AST/SGOT) 26, Alanine Aminotransferase (ALT/SGPT) 27, Alkaline Phosphatase 118, Total Protein 6.4, Albumin 3.4, Triglycerides Level 75, Cholesterol Level 210H, LDL Cholesterol Direct 163H, VLDL Cholesterol 15, HDL Cholesterol 47 08/07/20 06:14: Glucometer 100 08/07/20 09:40: Activated Partial Thromboplast Time 176*H 08/07/20 11:21: Glucometer 262H 08/07/20 15:22: Glucometer 229H 08/07/20 17:35: Activated Partial Thromboplast Time 99H 08/07/20 20:46: Glucometer 168H 08/07/20 23:10: Activated Partial Thromboplast Time 46H 08/08/20 03:03: White Blood Count 11.1H, Red Blood Count 4.16, Hemoglobin 11.5, Hematocrit 37, Mean Corpuscular Volume 90, Mean Corpuscular Hemoglobin 28, Mean Corpuscular Hemoglobin Concent 31L, Red Cell Distribution Width 13.8, Platelet Count 229, Mean Platelet Volume 11.8, Immature Granulocyte % (Auto) 0, Neutrophils (%) (Auto) 57, Lymphocytes (%) (Auto) 29, Monocytes (%) (Auto) 8, Eosinophils (%) (Auto) 6, Basophils (%) (Auto) 1, Neutrophils # (Auto) 6.3, Lymphocytes # (Auto) 3.2, Monocytes # (Auto) 0.8, Eosinophils # (Auto) 0.7H, Basophils # (Auto) 0.1, Immature Granulocyte # (Auto) 0.0, Sodium Level 139, Potassium Level 3.9, Chloride Level 106, Carbon Dioxide Level 21, Anion Gap 12, Blood Urea Nitrogen 19H, Creatinine 0.80, Estimat Glomerular Filtration Rate > 60, BUN/Creatinine Ratio 24, Glucose Level 109H, Calcium Level 8.8, Phosphorus Level 3.0, Magnesium Level 2.0 08/08/20 05:39: Glucometer 129H 08/08/20 06:04: Activated Partial Thromboplast Time > 200*H 08/08/20 10:30: Glucometer 307H 08/08/20 12:04: Glucometer 276H 08/08/20 15:49: Glucometer 119H 08/08/20 20:09: Glucometer 137H 08/09/20 03:00: White Blood Count 10.4, Red Blood Count 3.84, Hemoglobin 10.7L, Hematocrit 34L, Mean Corpuscular Volume 87, Mean Corpuscular Hemoglobin 28, Mean Corpuscular Hemoglobin Concent 32, Red Cell Distribution Width 13.7, Platelet Count 209, Mean Platelet Volume 11.9, Immature Granulocyte % (Auto) 0, Neutrophils (%) (Auto) 72, Lymphocytes (%) (Auto) 16, Monocytes (%) (Auto) 10, Eosinophils (%) (Auto) 2, Basophils (%) (Auto) 1, Neutrophils # (Auto) 7.5, Lymphocytes # (Auto) 1.6, Monocytes # (Auto) 1.0, Eosinophils # (Auto) 0.2, Basophils # (Auto) 0.1, Immature Granulocyte # (Auto) 0.0, Sodium Level 135, Potassium Level 3.9, Chloride Level 104, Carbon Dioxide Level 23, Anion Gap 8, Blood Urea Nitrogen 10, Creatinine 0.78, Estimat Glomerular Filtration Rate > 60, BUN/Creatinine Ratio 13, Glucose Level 176H, Calcium Level 8.7, Corrected Calcium 9.4, Phosphorus Level 3.0, Magnesium Level 2.0, Total Bilirubin 0.4, Aspartate Amino Transf (AST/SGOT) 13, Alanine Aminotransferase (ALT/SGPT) 13, Alkaline Phosphatase 118, Total Protein 6.0L, Albumin 3.1L 08/09/20 06:30: Glucometer 152H 08/09/20 10:32: Glucometer 218H 08/09/20 13:04: Urine Color YELLOW, Urine Clarity CLOUDY, Urine pH 5.5, Urine Specific [place] 1.020, Urine Protein TRACEH, Urine Glucose (UA) NEGATIVE, Urine Ketones TRACEH, Urine Nitrite NEGATIVE, Urine Bilirubin NEGATIVE, Urine Urobilinogen 0.2, Urine Leukocyte Esterase 2+H, Urine RBC (Auto) 1+H, Urine RBC 5-10H, Urine WBC 50-100H , Urine Crystals NONE, Urine Bacteria LARGEH, Urine Casts NONE, Urine Mucus NEGATIVE, Urine Culture Indicated YES 08/09/20 15:39: Glucometer 125H 08/09/20 19:55: White Blood Count 7.9, Red Blood Count 3.81, Hemoglobin 10.5L, Hematocrit 34L, Mean Corpuscular Volume 88, Mean Corpuscular Hemoglobin 28, Mean Corpuscular Hemoglobin Concent 31L, Red Cell Distribution Width 13.9, Platelet Count 179, Mean Platelet Volume 11.7, Immature Granulocyte % (Auto) 1, Neutrophils (%) (Auto) 63, Lymphocytes (%) (Auto) 23, Monocytes (%) (Auto) 9, Eosinophils (%) (Auto) 5, Basophils (%) (Auto) 0, Neutrophils # (Auto) 4.9, Lymphocytes # (Auto) 1.8, Monocytes # (Auto) 0.7, Eosinophils # (Auto) 0.4H, Basophils # (Auto) 0.0, Immature Granulocyte # (Auto) 0.1, Sodium Level 135, Potassium Level 4.4, Chloride Level 103, Carbon Dioxide Level 24, Anion Gap 8, Blood Urea Nitrogen 17, Creatinine 1.09, Estimat Glomerular Filtration Rate 49, BUN/Creatinine Ratio 16, Glucose Level 284H, Lactic Acid Level 1.33, Calcium Level 8.3L, Corrected Calcium 9.0, Total Bilirubin 0.2, Aspartate Amino Transf (AST/SGOT) 13, Alanine Aminotransferase (ALT/SGPT) 11, Alkaline Phosphatase 109, Total Protein 5.9L, Albumin 3.1L, Procalcitonin 0.06 08/09/20 20:22: Glucometer 240H 08/10/20 05:42: Glucometer 48*L 08/10/20 05:46: Glucometer 45*L 08/10/20 06:21: Glucometer 76 08/10/20 06:48: White Blood Count 9.9, Red Blood Count 3.92, Hemoglobin 11.2L, Hematocrit 35, Mean Corpuscular Volume 89, Mean Corpuscular Hemoglobin 29, Mean Corpuscular Hemoglobin Concent 32, Red Cell Distribution Width 13.8, Platelet Count 163, Mean Platelet Volume 11.6, Immature Granulocyte % (Auto) 1, Neutrophils (%) (Auto) 75, Lymphocytes (%) (Auto) 14, Monocytes (%) (Auto) 9, Eosinophils (%) (Auto) 1, Basophils (%) (Auto) 0, Neutrophils # (Auto) 7.5, Lymphocytes # (Auto) 1.4, Monocytes # (Auto) 0.9, Eosinophils # (Auto) 0.1, Basophils # (Auto) 0.0, Immature Granulocyte # (Auto) 0.1, Sodium Level 139, Potassium Level 4.0, Chloride Level 108H, Carbon Dioxide Level 23, Anion Gap 8, Blood Urea Nitrogen 14, Creatinine 0.75, Estimat Glomerular Filtration Rate > 60, BUN/Creatinine Ratio 19, Glucose Level 141H, Calcium Level 8.4L, Corrected Calcium 9.2, Total Bilirubin 0.2, Aspartate Amino Transf (AST/SGOT) 24, Alanine Aminotransferase (ALT/SGPT) 16, Alkaline Phosphatase 99, Total Protein 5.9L, Albumin 3.0L 08/10/20 10:31: Glucometer 318H Microbiology 08/09/20 Blood Culture - Preliminary, Resulted No growth 08/09/20 Urine Culture - Final, Complete Escherichia coli Pending Labs Microbiology Date/Time Source Procedure Growth Status 08/09/20 19:55 Peripheral Rt Hand Blood Culture - Preliminary No growth Resulted 08/09/20 19:15 Peripheral Rt Hand Blood Culture - Preliminary Staph, Coag Neg (DEGREE CLERK) See Comments Resulted 08/09/20 13:04 Urine U Cath,Nos Urine Culture - Final Escherichia coli Complete Laboratory Tests 08/06/20 20:10: White Blood Count 8.2, Red Blood Count 4.23, Hemoglobin 11.8, Hematocrit 38, Mean Corpuscular Volume 89, Mean Corpuscular Hemoglobin 28, Mean Corpuscular Hemoglobin Concent 31, Red Cell Distribution Width 13.9, Platelet Count 241, Mean Platelet Volume 11.7, Immature Granulocyte % (Auto) 0, Neutrophils (%) (Auto) 51, Lymphocytes (%) (Auto) 31, Monocytes (%) (Auto) 10, Eosinophils (%) (Auto) 7, Basophils (%) (Auto) 1, Neutrophils # (Auto) 4.2, Lymphocytes # (Auto) 2.6, Monocytes # (Auto) 0.8, Eosinophils # (Auto) 0.6, Basophils # (Auto) 0.0, Immature Granulocyte # (Auto) 0.0, Prothrombin Time 17.0, INR Comment 1.3, Activated Partial Thromboplast Time 35, Sodium Level 141, Potassium Level 4.1, Chloride Level 104, Carbon Dioxide Level 27, Anion Gap 10, Blood Urea Nitrogen 34, Creatinine 1.08, Estimat Glomerular Filtration Rate 50, BUN/Creatinine Ratio 31, Glucose Level 128, Calcium Level 9.0, Corrected Calcium 9.3, Total Bilirubin 0.2, Aspartate Amino Transf (AST/SGOT) 17, Alanine Aminotransferase (ALT/SGPT) 22, Alkaline Phosphatase 121, Total Protein 7.1, Albumin 3.6 08/07/20 01:16: White Blood Count 9.7, Red Blood Count 4.16, Hemoglobin 11.5, Hematocrit 37, Mean Corpuscular Volume 88, Mean Corpuscular Hemoglobin 28, Mean Corpuscular Hemoglobin Concent 31, Red Cell Distribution Width 13.9, Platelet Count 227, Mean Platelet Volume 11.6, Immature Granulocyte % (Auto) 1, Neutrophils (%) (Auto) 41, Lymphocytes (%) (Auto) 42, Monocytes (%) (Auto) 9, Eosinophils (%) (Auto) 7, Basophils (%) (Auto) 1, Neutrophils # (Auto) 4.0, Lymphocytes # (Auto) 4.1, Monocytes # (Auto) 0.9, Eosinophils # (Auto) 0.7, Basophils # (Auto) 0.1, Immature Granulocyte # (Auto) 0.1, Activated Partial Thromboplast Time > 200, Sodium Level 141, Potassium Level 4.3, Chloride Level 105, Carbon Dioxide Level 23, Anion Gap 13, Blood Urea Nitrogen 32, Creatinine 0.87, Estimat Glomerular Filtration Rate > 60, BUN/Creatinine Ratio 37, Glucose Level 119, Calcium Level 8.8, Corrected Calcium 9.3, Total Bilirubin 0.2, Aspartate Amino Transf (AST/SGOT) 26, Alanine Aminotransferase (ALT/SGPT) 27, Alkaline Phosphatase 118, Total Protein 6.4, Albumin 3.4, Triglycerides Level 75, Cholesterol Level 210, LDL Cholesterol Direct 163, VLDL Cholesterol 15, HDL Cholesterol 47 08/07/20 06:14: Glucometer 100 08/07/20 09:40: Activated Partial Thromboplast Time 176 08/07/20 11:21: Glucometer 262 08/07/20 15:22: Glucometer 229 08/07/20 17:35: Activated Partial Thromboplast Time 99 08/07/20 20:46: Glucometer 168 08/07/20 23:10: Activated Partial Thromboplast Time 46 08/08/20 03:03: White Blood Count 11.1, Red Blood Count 4.16, Hemoglobin 11.5, Hematocrit 37, Mean Corpuscular Volume 90, Mean Corpuscular Hemoglobin 28, Mean Corpuscular Hemoglobin Concent 31, Red Cell Distribution Width 13.8, Platelet Count 229, Mean Platelet Volume 11.8, Immature Granulocyte % (Auto) 0, Neutrophils (%) (Auto) 57, Lymphocytes (%) (Auto) 29, Monocytes (%) (Auto) 8, Eosinophils (%) (Auto) 6, Basophils (%) (Auto) 1, Neutrophils # (Auto) 6.3, Lymphocytes # (Auto) 3.2, Monocytes # (Auto) 0.8, Eosinophils # (Auto) 0.7, Basophils # (Auto) 0.1, Immature Granulocyte # (Auto) 0.0, Sodium Level 139, Potassium Level 3.9, Chloride Level 106, Carbon Dioxide Level 21, Anion Gap 12, Blood Urea Nitrogen 19, Creatinine 0.80, Estimat Glomerular Filtration Rate > 60, BUN/Creatinine Ratio 24, Glucose Level 109, Calcium Level 8.8, Phosphorus Level 3.0, Magnesium Level 2.0 08/08/20 05:39: Glucometer 129 08/08/20 06:04: Activated Partial Thromboplast Time > 200 08/08/20 10:30: Glucometer 307 08/08/20 12:04: Glucometer 276 08/08/20 15:49: Glucometer 119 08/08/20 20:09: Glucometer 137 08/09/20 03:00: White Blood Count 10.4, Red Blood Count 3.84, Hemoglobin 10.7, Hematocrit 34, Mean Corpuscular Volume 87, Mean Corpuscular Hemoglobin 28, Mean Corpuscular Hemoglobin Concent 32, Red Cell Distribution Width 13.7, Platelet Count 209, Mean Platelet Volume 11.9, Immature Granulocyte % (Auto) 0, Neutrophils (%) (Auto) 72, Lymphocytes (%) (Auto) 16, Monocytes (%) (Auto) 10, Eosinophils (%) (Auto) 2, Basophils (%) (Auto) 1, Neutrophils # (Auto) 7.5, Lymphocytes # (Auto) 1.6, Monocytes # (Auto) 1.0, Eosinophils # (Auto) 0.2, Basophils # (Auto) 0.1, Immature Granulocyte # (Auto) 0.0, Sodium Level 135, Potassium Level 3.9, Chloride Level 104, Carbon Dioxide Level 23, Anion Gap 8, Blood Urea Nitrogen 10, Creatinine 0.78, Estimat Glomerular Filtration Rate > 60, BUN/Creatinine Ratio 13, Glucose Level 176, Calcium Level 8.7, Corrected Calcium 9.4, Phosphorus Level 3.0, Magnesium Level 2.0, Total Bilirubin 0.4, Aspartate Amino Transf (AST/SGOT) 13, Alanine Aminotransferase (ALT/SGPT) 13, Alkaline Phosphatase 118, Total Protein 6.0, Albumin 3.1 08/09/20 06:30: Glucometer 152 08/09/20 10:32: Glucometer 218 08/09/20 13:04: Urine Color YELLOW, Urine Clarity CLOUDY, Urine pH 5.5, Urine Specific [place] 1.020, Urine Protein TRACE, Urine Glucose (UA) NEGATIVE, Urine Ketones TRACE, Urine Nitrite NEGATIVE, Urine Bilirubin NEGATIVE, Urine Urobilinogen 0.2, Urine Leukocyte Esterase 2+, Urine RBC (Auto) 1+, Urine RBC 5-10, Urine WBC 50-100, Urine Crystals NONE, Urine Bacteria LARGE, Urine Casts NONE, Urine Mucus NEGATIVE, Urine Culture Indicated YES 08/09/20 15:39: Glucometer 125 08/09/20 19:55: White Blood Count 7.9, Red Blood Count 3.81, Hemoglobin 10.5, Hematocrit 34, Mean Corpuscular Volume 88, Mean Corpuscular Hemoglobin 28, Mean Corpuscular Hemoglobin Concent 31, Red Cell Distribution Width 13.9, Platelet Count 179, Mean Platelet Volume 11.7, Immature Granulocyte % (Auto) 1, Neutrophils (%) (Auto) 63, Lymphocytes (%) (Auto) 23, Monocytes (%) (Auto) 9, Eosinophils (%) (Auto) 5, Basophils (%) (Auto) 0, Neutrophils # (Auto) 4.9, Lymphocytes # (Auto) 1.8, Monocytes # (Auto) 0.7, Eosinophils # (Auto) 0.4, Basophils # (Auto) 0.0, Immature Granulocyte # (Auto) 0.1, Sodium Level 135, Potassium Level 4.4, Chloride Level 103, Carbon Dioxide Level 24, Anion Gap 8, Blood Urea Nitrogen 17, Creatinine 1.09, Estimat Glomerular Filtration Rate 49, BUN/Creatinine Ratio 16, Glucose Level 284, Lactic Acid Level 1.33, Calcium Level 8.3, Corrected Calcium 9.0, Total Bilirubin 0.2, Aspartate Amino Transf (AST/SGOT) 13, Alanine Aminotransferase (ALT/SGPT) 11, Alkaline Phosphatase 109, Total Protein 5.9, Albumin 3.1, Procalcitonin 0.06 08/09/20 20:22: Glucometer 240 08/10/20 05:42: Glucometer 48 08/10/20 05:46: Glucometer 45 08/10/20 06:21: Glucometer 76 08/10/20 06:48: White Blood Count 9.9, Red Blood Count 3.92, Hemoglobin 11.2, Hematocrit 35, Mean Corpuscular Volume 89, Mean Corpuscular Hemoglobin 29, Mean Corpuscular Hemoglobin Concent 32, Red Cell Distribution Width 13.8, Platelet Count 163, Mean Platelet Volume 11.6, Immature Granulocyte % (Auto) 1, Neutrophils (%) (Auto) 75, Lymphocytes (%) (Auto) 14, Monocytes (%) (Auto) 9, Eosinophils (%) (Auto) 1, Basophils (%) (Auto) 0, Neutrophils # (Auto) 7.5, Lymphocytes # (Auto) 1.4, Monocytes # (Auto) 0.9, Eosinophils # (Auto) 0.1, Basophils # (Auto) 0.0, Immature Granulocyte # (Auto) 0.1, Sodium Level 139, Potassium Level 4.0, Chloride Level 108, Carbon Dioxide Level 23, Anion Gap 8, Blood Urea Nitrogen 14, Creatinine 0.75, Estimat Glomerular Filtration Rate > 60, BUN/Creatinine Ratio 19, Glucose Level 141, Calcium Level 8.4, Corrected Calcium 9.2, Total Bilirubin 0.2, Aspartate Amino Transf (AST/SGOT) 24, Alanine Aminotransferase (ALT/SGPT) 16, Alkaline Phosphatase 99, Total Protein 5.9, Albumin 3.0 08/10/20 10:31: Glucometer 318 Discharge Home Medications: Active Scripts Active Xanax Tablet (Alprazolam) 0.25 Mg Tab 0.25 Mg PO Q8H PRN 7 Days Geodon (Ziprasidone Mesylate) 20 Mg/1 Ml Vial 10 Mg IM Q2H PRN 7 Days [Haloperidol Lactate] 5 MG/ML Inj 2 Mg IM Q4H PRN 7 Days Oxyir Tablet (Oxycodone HCl) 5 Mg Tab 5 Mg PO Q4H PRN 7 Days Isosorbide Mononitrate ER (Isosorbide Mononitrate) 30 Mg Tab.er.24h 30 Mg PO DAILY 365 Days Cefepime HCl 1 Gm Vial 1 Gm IV Q6H 4 Days Reported Ocuvite Adult 50 Plus Softgel (C,E,Zinc,Copper 11/Oetcu5o/Lut) 1 Each Capsule 1 Each PO DAILY Vitamin C (Ascorbic Acid) 500 Mg Capsule 500 Mg PO DAILY Loratadine 10 Mg Tablet 10 Mg PO DAILY Atorvastatin Calcium 10 Mg Tablet 10 Mg PO DAILY Losartan Potassium 25 Mg Tablet 25 Mg PO DAILY LAST FILLED 05-28-2020 #30/30 DAY SUPPLY Sertraline HCl 50 Mg Tablet 50 Mg PO DAILY Hydrocodone-Acetamin 5-325 mg (Hydrocodone/Acetaminophen) 1 Each Tablet 1 Tab PO TID PRN Diltiazem 24Hr ER (Diltiazem HCl) 120 Mg Cap.er.24h 120 Mg PO DAILY Novolog (Insulin Aspart) 100 Unit/1 Ml Susp Units SC AC 0-199=0 UNITS 200-299=5 UNITS 300-399=6 UNITS 400-499=7 UNITS 500-599=8 UNITS Xarelto (Rivaroxaban) 10 Mg Tablet 5 Mg PO BID TAKES OF A 10MG Gabapentin 100 Mg Capsule 200 Mg PO DAILY TAKES 2 (100MG) CAPS LAST FILLED 05-28-2020 #90/45 DAY SUPPLY Clopidogrel (Clopidogrel Bisulfate) 75 Mg Tablet 75 Mg PO DAILY LAST FILLED 04-07-2020 #90 Lantus (Insulin Glargine,Hum.rec.anlog) 100 Unit/1 Ml Vial 10 Units SC BID Levothyroxine Sodium 112 Mcg Tablet 112 Mcg PO DAILY LAST FILLED 05-28-2020 #30/30 DAY SUPPLY Furosemide 40 Mg Tablet 40 Mg PO DAILY PRN Instructions to patient/family Please see electronic discharge instructions given to patient. 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
--- NOTE | 2020-08-10 10:54 | Physical Therapy Daily Note ---
PT Daily Note-Current Subjective Patient agrees to PT. C/o being cold. Mental Status Patient Orientation: Confused Attachments: Arredondo Catheter, IV Transfers SCALE: Activities may be completed with or without assistive devices. 3-Tlchvenqom-lcbpoxc completes the activity by him/herself with no assistance from a helper. 5-Set-up or Clean-up Assistance-helper sets up or cleans up; patient completes activity. Dalton assists only prior to or following the activity. 4-Supervision or Touching Assistance-helper provides verbal cues and/or touching/steadying and/or contact guard assistance as patient completes activity. Assistance may be provided throughout the activity or intermittently. 3-Partial/Moderate Assistance-helper does LESS THAN HALF the effort. Dalton lifts, holds or supports trunk or limbs, but provides less than half the effort. 2-Substantial/Maximal Assistance-helper does MORE THAN HALF the effort. Dalton lifts or holds trunk or limbs and provides more than half the effort. 3-Gifjbtnes-uyvbkq does ALL the effort. Patient does none of the effort to complete the activity. Or, the assistance of 2 or more helpers is required for the patient to complete the activity. If activity was not attempted, code reason: 7-Patient Refused. 9-Not Applicable-not attempted and the patient did not perform the activity before the current illness, exacerbation or injury. 10-Not Attempted due to Environmental Limitations-(lack of equipment, weather restraints, etc.). 88-Not Attempted due to Medical Conditions or Safety Concerns. Lying to Sitting/Side of Bed(Q: 3 Sit to Stand (QC): 3 Chair/Xfn-ue-Otcqp Xfer(QC): 3 Gait Training Does the Patient Walk?: Yes Distance: 10' x 2 Walk 10 feet (QC): 3 Gait Assistive Device: FWW unsteady, shuffle gait sequence Exercises Seated Therapy Exercises: Long arc quads Seated Reps: 15 Assessment Patient is up in recliner with needs met and alarm activated. Plan transfer to [facility] on this date for SWB. PT Fdc Goals Pinion Sorter Goals PT Pinion Sorter Goals Time Frame: August 18, 2020 Roll Left & Right (QC): 3 Sit to Lying (QC): 3 Lying-Sitting on Side/Bed(QC): 3 Sit to Stand (QC): 3 Chair/Krz-su-Pehxw Xfer(QC): 3 Toilet Transfer (QC): 3 Walk 10 feet (QC): 3 PT Plan Treatment/Plan Treatment Plan: Discontinue PT Treatment Plan: Bed Mobility, Education, Functional Activity Anjali, Functional Strength, Gait, Safety, Therapeutic Exercise, Transfers Treatment Duration: August 18, 2020 Frequency: 6 times per week Estimated Hrs Per Day: .25 hour per day Time/GCodes Time In: 1008 Time Out: 1018 Total Billed Treatment Time: 10 Total Billed Treatment 1 visit FA 10 min SONIA DAN PT August 10, 2020 10:54
[2020-08-10 12:00] VITALS: BP 173/73
== END 2020-08-10 12:04 | DRG 253 ==
LOC: ICU 18:42 → 4TH 08-09 18:18
PROVIDERS: ADMIT Internal Medicine; ATTEND Internal Medicine
PROC: 047N3ZZ Dilation of Left Popliteal Artery, Percutaneous Approach (ICD-10-PCS; principal; 2020-08-08)
DX: T82.856A Stenosis of peripheral vascular stent, initial encounter (principal); N39.0 Urinary tract infection, site not specified; I50.22 Chronic systolic (congestive) heart failure; I70.221 Atherosclerosis of native arteries of extremities with rest pain, right leg; F03.90 Unspecified dementia, unspecified severity, without behavioral disturbance, psychotic disturbance, mood disturbance, and anxiety; I35.0 Nonrheumatic aortic (valve) stenosis; E10.51 Type 1 diabetes mellitus with diabetic peripheral angiopathy without gangrene; I10 Essential (primary) hypertension; E78.5 Hyperlipidemia, unspecified; I25.10 Atherosclerotic heart disease of native coronary artery without angina pectoris; H91.13 Presbycusis, bilateral; I69.911 Memory deficit following unspecified cerebrovascular disease; E03.9 Hypothyroidism, unspecified; I48.0 Paroxysmal atrial fibrillation; F41.9 Anxiety disorder, unspecified; F32.9 Major depressive disorder, single episode, unspecified; E10.40 Type 1 diabetes mellitus with diabetic neuropathy, unspecified; I16.0 Hypertensive urgency; R33.9 Retention of urine, unspecified; Z88.5 Allergy status to narcotic agent; Z98.2 Presence of cerebrospinal fluid drainage device; Z88.1 Allergy status to other antibiotic agents; Z79.01 Long term (current) use of anticoagulants; Z79.4 Long term (current) use of insulin; Z79.899 Other long term (current) drug therapy
CPT/HCPCS: 36248; 36415; 70450; 71045; 75716; 80048; 80053; 80061; 81000; 82947; 83605; 83735; 84100; 84145; 85025; 85610; 85730; 87040; 87077; 87088; 87186; 93306; 93925; 94760